=== PATIENT | female | born 1955 | race Caucasian/White ===

== ENCOUNTER 2020-10-31 12:24 | Emergency (ER) | payer OTHER, SELFPAY ==
[2020-10-31 12:52] VITALS: BP 142/72; PULSE 90; RESP 18; TEMP 36.7; O2SAT 95; BMI 36.6
[2020-10-31] MEDS: cephALEXin 500 MG CAPSULE PO (15:06)
--- NOTE | 2020-10-31 15:11 | ED.SKABFB ---
HPI - Skin/Abscess/Foreign Bdy General Chief complaint: Skin/Abscess/Foreign Body Stated complaint: rash? (arm pit) Time Seen by Provider: 10/31/20 14:48 History of Present Illness HPI narrative: Patient complains of burning rash to left and right arm pits it started in the left armpit and now it is starting in the right armpit there is no fever no chills no joint pain Related Data Home Medications Medication Instructions Recorded Confirmed albuterol sulfate 2 puff PO Q4-6H PRN 07/14/20 07/14/20 albuterol sulfate INHALATION 07/14/20 amlodipine 1 tab PO DAILY 07/14/20 07/14/20 atorvastatin 1 tab PO BEDTIME 07/14/20 07/14/20 bupropion HCl 1 tab PO QAM 07/14/20 07/14/20 carvedilol 1 tab PO BID 07/14/20 07/14/20 chlorthalidone 1 tab PO DAILY 07/14/20 07/14/20 cholecalciferol (vitamin D3) 1 tab PO DAILY 07/14/20 07/14/20 [Vitamin D3] clonazepam 1 tab PO TID PRN 07/14/20 07/14/20 escitalopram oxalate 1 tab PO QAM 07/14/20 07/14/20 fluticasone propionate [Flonase] 1 spray INTRANASAL DAILY 07/14/20 07/14/20 nifedipine PO 07/14/20 omeprazole 1 cap PO BID 07/14/20 07/14/20 oxycodone 1 tab PO Q12H PRN 07/14/20 07/14/20 oxycodone [OxyContin] 1 tab PO Q12H 07/14/20 07/14/20 risperidone 1 tab PO BID 07/14/20 07/14/20 Previous Rx's Medication Instructions Recorded cephalexin [Keflex] 500 mg PO QID 7 Days #28 cap 10/31/20 clotrimazole 1 appl TOPICAL TID #45 g 10/31/20 Allergies Allergy/AdvReac Type Severity Reaction Status Date / Time No Known Allergies Allergy Verified 10/31/20 12:57 Review of Systems Review of Systems: Positive for skin rash Negative for fever chills dizziness weakness chest pain abdominal pain nausea vomiting Yes all other systems are reviewed and are negative PMFSH Past Medical History Source: nursing notes reviewed Medical History Anxiety Asthma Depression Elevated cholesterol GERD (gastroesophageal reflux disease) HTN (hypertension) Hx of renal calculi Hx of small bowel obstruction Surgical History History of Salomon fundoplication Hx of colonoscopy Hx of hysterectomy, total Social History Social History Advance Directives: No Advance Directives Information Provided: No Physical Exam Vital Signs: Vital Signs: Last Vital Signs Temp 98.1 F 10/31/20 12:52 Pulse 90 10/31/20 12:52 Resp 18 10/31/20 12:52 BP 142/72 H 10/31/20 12:52 Pulse Ox 95 10/31/20 12:52 Body Mass Index 36.6 General appearance is comfortable relaxed and cooperative no acute distress A&O x3 Head is normocephalic atraumatic Neck is supple Respiratory no distress Extremities is full range of motion in all joints The skin exam the left armpit had a circular rash with a raised border and central clearing with some mild erythema surrounding the edges it was mildly tender to the touch there is no fluctuance there was no discharge from the wound there were no herpetic lesions the shoulder had a full range of motion and there was no swelling or limited range of motion in the shoulder joint The right armpit had a similar rash circular central clearing raised border but was less than on the left, again full range of motion no fluctuance no abscess but there was some mild erythema surrounding the raised circular rash Neuro no focal deficit Course Course Course Narrative: Exam is likely a fungal rash that now has some secondary cellulitis and she is treated for fungal rash and cellulitis Discharge Plan Discharge Clinical Impression: Cellulitis Qualifiers: Site of cellulitis: trunk Site of cellulitis of trunk: unspecified site Qualified Code(s): L03.319 - Cellulitis of trunk, unspecified Patient Disposition: Home, Self-Care Additional Instructions: I believe you have a fungal infection in the armpits which now is mildly infected so we are prescribing both an antibiotic and an anti fungal cream Follow with primary doctor Return any time any worse condition or concerns Prescriptions: New cephalexin [Keflex] 500 mg capsule 500 mg PO QID 7 Days Qty: 28 RF: 0 clotrimazole 1 % cream 1 appl topical TID Qty: 45 RF: 0 No Action atorvastatin 40 mg tablet 1 tab PO BEDTIME RF: 0 albuterol sulfate 2.5 mg /3 mL (0.083 %) solution for nebulization inhalation RF: 0 clonazepam 1 mg tablet 1 tab PO TID PRN (Reason: Anxiety) RF: 0 chlorthalidone 25 mg tablet 1 tab PO DAILY RF: 0 carvedilol 3.125 mg tablet 1 tab PO BID RF: 0 nifedipine 60 mg tablet extended release 24hr PO RF: 0 amlodipine 10 mg tablet 1 tab PO DAILY RF: 0 omeprazole 20 mg capsule,delayed release(DR/EC) 1 cap PO BID RF: 0 albuterol sulfate 90 mcg/actuation HFA aerosol inhaler 2 puff PO Q4-6H PRN (Reason: Wheezing) RF: 0 fluticasone propionate [Flonase] 50 mcg/actuation [place],Suspension 1 spray INTRANASAL DAILY RF: 0 risperidone 0.5 mg tablet 1 tab PO BID RF: 0 oxycodone 5 mg tablet 1 tab PO Q12H PRN (Reason: pain) RF: 0 escitalopram oxalate 10 mg tablet 1 tab PO QAM RF: 0 bupropion HCl 150 mg tablet extended release 24 hr 1 tab PO QAM RF: 0 cholecalciferol (vitamin D3) [Vitamin D3] 25 mcg (1,000 unit) tablet 1 tab PO DAILY RF: 0 oxycodone [OxyContin] 10 mg tablet,oral only,ext.rel.12 hr 1 tab PO Q12H RF: 0 Discharge Date/Time: 10/31/20 15:12
== END 2020-10-31 15:12 | disposition home or self-care (01) ==
PROVIDERS: Emergency Provider Emergency Medicine; PCP Family Medicine
DX: L03.319 Cellulitis of trunk, unspecified (principal); B36.9 Superficial mycosis, unspecified; I10 Essential (primary) hypertension; J45.909 Unspecified asthma, uncomplicated; Z79.899 Other long term (current) drug therapy
CPT/HCPCS: 99283

== ENCOUNTER 2021-02-19 10:44 | Outpatient (REF) | payer OTHER, SELFPAY ==
--- NOTE | ~2021-02-19 | MM_ITS ---
EXAMINATION: MM SCREENING DIGITAL BREAST TOMOSYNTHESIS, BILATERAL CLINICAL INFORMATION: Screening. Asymptomatic. The lifetime risk of breast cancer based on the Tyrer-Cuzick Model is 12.2%. COMPARISON: Mammography: April 23, 2018 and studies dating back to April 25, 2011 TECHNIQUE: Digital breast tomosynthesis is performed in both the craniocaudal and mediolateral oblique views along with computer-aided detection (CAD). Synthesized 2D images are generated from the tomosynthesis. FINDINGS: The breasts are extremely dense, which lowers the sensitivity of mammography (ACR BI-RADS breast composition Category d). There are no significant masses, abnormal calcifications, or other abnormalities. Stable region of architectural distortion seen central aspect of the right breast. MM/MM tomosynthesis screening BI IMPRESSION: There are no significant changes from prior study. ASSESSMENT: BI-RADS 2: Benign RECOMMENDATION: Routine annual mammography screening. This patient's information was entered into a reminder system with a target due date for their next mammogram.
== END 2021-02-19 10:45 | disposition home or self-care (01) ==
LOC: HO.MAMMO 10:44
PROVIDERS: Visit Provider Family Medicine
DX: Z12.31 Encounter for screening mammogram for malignant neoplasm of breast (principal)
CPT/HCPCS: 77063; 77067

== ENCOUNTER 2021-08-03 15:03 | Outpatient (REF) | payer OTHER, SELFPAY ==
[2021-08-03 15:22] LABS: MANUAL DIFF FLAG NO
[2021-08-03 15:34] LABS: Basophils Percent Auto 0.3 % (0-2); Eosinophils Absolute Auto 0.2 X10*3/uL (0.0-0.4); Eosinophils Percent Auto 1.5 % (0-4); Hematocrit 39.8 % (37.0-47.0); Hemoglobin 12.6 g/dl (12.0-16.0); Imm Gran Abs Auto 0.03 X10*3/uL (0.00-0.03); Imm Gran Pct Auto 0.3 % (0.0-0.4); Lymphocytes Absolute Auto 1.9 X10*3/uL (1.2-4.9); Mean Corpuscular HGB Conc 31.7 g/dl (31.0-35.0); Mean Corpuscular Hemoglobin 28.6 pg (27.0-33.0); Mean Corpuscular Volume 90.2 fL (80.0-98.0); Mean Platelet Volume 9.2 fL (9.4-12.3); Monocytes Absolute Auto 0.6 X10*3/uL (0.1-1.2); Neutrophils Absolute Auto 8.35 x10*3/uL (2.0-8.3); Neutrophils Percent Auto 75.9 % (45-73); Platelet Count 313 X10*3/uL (160-400); Red Blood Count 4.41 X10*6/uL (4.20-5.50); Red Cell Distribution Width 12.2 % (11.0-16.0)
[2021-08-03 15:56] LABS: Alanine Aminotransferase 8 U/L (0-31); Albumin Level 4.5 g/dL (3.5-5.0); Alkaline Phosphatase 88 U/L (39-117); Anion Gap 11 (12-20); Aspartate Amino Transferase 12 U/L (5-31); Bilirubin Total 0.3 mg/dL (0.0-1.0); Blood Urea Nitrogen 16 mg/dL (9-16); Calcium 9.8 mg/dL (8.4-10.2); Carbon Dioxide 33 mmol/L (22-29); Chloride 104 mmol/L (96-108); Estimated Glomerular Filt Rate 47; Glucose Random 101 mg/dL (60-115); Iron 48 mcg/dL (30-160); Percent Iron Saturation 14 % (15-50); Potassium 5.3 mmol/L (3.3-5.1); Sodium 143 mmol/L (135-145); Total Iron Binding Capacity 345 mcg/dL (228-428); Total Protein 7.1 g/dL (6.5-8.0); Unsaturated Iron Binding 297 ug/dL
[2021-08-03 16:23] LABS: TSH reflex Free T4 1.56 uIU/mL (0.32-4.0); Vitamin D 25-OH Total 33.4 ng/mL (>30)
[2021-08-03 16:34] LABS: Folate 9.5 ng/mL (> or = 4.0); Vitamin B12 346 pg/mL (200-900)
[2021-08-03 16:50] LABS: Ferritin 74 ng/mL (10-250)
[2021-08-04 07:27] LABS: Estimated Average Glucose 105 mg/dL; Hemoglobin A1c % 5.3 %
== END 2021-08-03 15:04 | disposition home or self-care (01) ==
LOC: HO.LAB 15:03
PROVIDERS: Absent Provider Registered Nurse; PCP Family Medicine; Visit Provider Family Medicine
DX: R63.0 Anorexia (principal); R63.4 Abnormal weight loss
CPT/HCPCS: 36415; 80053; 82306; 82607; 82728; 82746; 83036; 83540; 84134; 84443; 85025

== ENCOUNTER 2021-12-30 23:39 | Inpatient (IN) | payer OTHER, SELFPAY ==
--- NOTE | ~2021-12-30 | CT_ITS ---
EXAMINATION: CT ABDOMEN AND PELVIS WITH CONTRAST CLINICAL INFORMATION: Abdominal pain and nausea/vomiting. COMPARISON: 09/04/2019 TECHNIQUE: Multidetector volumetric images were obtained from the superior aspect of the liver through the pubic symphysis following administration 85 mL of Omnipaque 350 intravenous contrast. Sagittal and coronal reformatted images were obtained on the technologist's workstation. Oral contrast: No This CT examination was performed using dose optimization techniques as appropriate, variously including the following: *Automated exposure control *Adjustment of mA and/or kV according to patient size (this includes techniques or standardized protocols for targeted exams where dose is matched to indication/reason for exam; i.e. extremities or head) *Use of iterative reconstruction technique DLP: 782 mGy-cm FINDINGS: LUNG BASES: The visualized lung bases are unremarkable. LIVER, GALLBLADDER, AND BILIARY TREE: The liver is normal in size, shape, and attenuation. No focal hepatic lesion. Minimal central intrahepatic biliary duct dilatation and prominence of the common bile duct is within normal limits status post cholecystectomy. PANCREAS: Fatty atrophy. No inflammation or mass. SPLEEN: Unremarkable. ADRENAL GLANDS: Unremarkable. KIDNEYS AND URETERS: The kidneys are normal in size, shape, and attenuation. No hydronephrosis, hydroureter, or calculi seen. No perinephric stranding. BLADDER: Unremarkable. GASTROINTESTINAL TRACT: There is a small bowel obstruction with transition point in the left upper quadrant where the loops of the mid to distal jejunum are matted against the ventral abdominal wall. There is associated is enteric edema, however the bowel still appears to enhance normally. Distally, the small bowel is decompressed. Intact colocolic anastomosis within left lower quadrant between the descending and sigmoid colon. ABDOMINAL WALL: No significant hernia is appreciated. LYMPH NODES: Normal. VASCULAR: Unremarkable. PELVIC VISCERA: Hysterectomy. No adnexal abnormalities. OSSEOUS STRUCTURES: No acute or suspicious osseous abnormalities. CT/CT abdomen pelvis w con IMPRESSION: Small bowel obstruction with transition point in the left upper quadrant along the ventral abdominal wall as described. Fleischner guidelines were followed.
--- NOTE | ~2021-12-30 | XR_ITS ---
EXAMINATION: XR CHEST CLINICAL INFORMATION: Post NG tube placement COMPARISON: 08/29/2019 TECHNIQUE: Frontal view of the chest was obtained. XR/XR chest 1V FINDINGS/IMPRESSION: Nasogastric tube terminates within left upper quadrant, likely postpyloric. Normal symmetric lung volumes. No parenchymal consolidation. No pleural effusion. No pneumothorax. Cardiomediastinal silhouette and pulmonary vascularity are within normal limits. No acute osseous abnormalities.
[2021-12-31] VITALS (13 sets, daily range): BP systolic 119–170; BP diastolic 70–106; PULSE 73–87; RESP 15–20; TEMP 36.3–37; O2SAT 92–98; BMI 37.8
--- NOTE | 2021-12-31 00:43 | ED_ITS ---
HPI - Abdominal Pain General Chief Complaint: Abdominal Pain Stated Complaint: ABD PAIN X5 HOURS Time Seen by Provider: 12/31/21 00:12 Source: patient Mode of arrival: EMS History of Present Illness HPI narrative: 66-year-old female with history of abdominal surgery as well as asthma, hypertension who presents via EMS with onset of nausea and vomiting as well as abdominal pain that started approximately 18:00 this evening. Patient has a history of colostomy reversal several years ago and also states that she has not had any BM for 5 days but reports still passing flatus. Otherwise she denies urinary symptoms. Related Data Home Medications Medication Instructions Recorded Confirmed albuterol sulfate INHALATION 07/14/20 albuterol sulfate 90 mcg/actuation 2 puff PO Q4-6H PRN 07/14/20 07/14/20 aerosol inhaler amlodipine 10 mg tablet 1 tab PO DAILY 07/14/20 07/14/20 atorvastatin 40 mg tablet 1 tab PO BEDTIME 07/14/20 07/14/20 bupropion HCl 150 mg 24 hr tablet, 1 tab PO QAM 07/14/20 07/14/20 extended release carvedilol 3.125 mg tablet 1 tab PO BID 07/14/20 07/14/20 chlorthalidone 25 mg tablet 1 tab PO DAILY 07/14/20 07/14/20 cholecalciferol (vitamin D3) 25 1 tab PO DAILY 07/14/20 07/14/20 mcg (1,000 unit) tablet (Vitamin D3) clonazepam 1 mg tablet 1 tab PO TID PRN 07/14/20 07/14/20 escitalopram oxalate 10 mg tablet 1 tab PO QAM 07/14/20 07/14/20 fluticasone propionate 50 1 spray INTRANASAL DAILY 07/14/20 07/14/20 mcg/actuation nasal spray,suspension nifedipine 60 mg tablet,extended PO 07/14/20 release 24 hr omeprazole 20 mg capsule,delayed 1 cap PO BID 07/14/20 07/14/20 release oxycodone 10 mg tablet,crush 1 tab PO Q12H 07/14/20 07/14/20 resistant,extended release 12 hr (OxyContin) oxycodone 5 mg tablet 1 tab PO Q12H PRN 07/14/20 07/14/20 risperidone 0.5 mg tablet 1 tab PO BID 07/14/20 07/14/20 Previous Rx's Medication Instructions Recorded cephalexin 500 mg capsule (Keflex) 500 mg PO QID 7 Days #28 cap 10/31/20 clotrimazole 1 % topical cream 1 appl TOPICAL TID #45 g 10/31/20 Allergies Allergy/AdvReac Type Severity Reaction Status Date / Time No Known Allergies Allergy Verified 10/31/20 12:57 Review of Systems Review of Systems Pertinent positives and negatives as stated in HPI 10 point review of systems is otherwise negative. [facility] Past Medical History Source: nursing notes reviewed Medical History Anxiety Asthma Depression Elevated cholesterol GERD (gastroesophageal reflux disease) HTN (hypertension) Hx of renal calculi Hx of small bowel obstruction Surgical History History of Salomon fundoplication Hx of colonoscopy Hx of hysterectomy, total Social History Social History Alcohol intake: never Patient Tobacco Use Status: Never used Tobacco Use of substances other than those prescribed or required for medical reasons: No Advance Directives: No Advance Directives Information Provided: No Physical Exam ED Vital Signs: Vital Signs - 24 hr 12/31/21 00:03 12/31/21 01:16 12/31/21 02:15 Temperature 98.6 F Pulse Rate 81 73 Respiratory Rate 18 15 18 Blood Pressure 165/96 H 148/80 H Pulse Oximetry 98 96 BMI result Body Mass Index 37.8 VITAL SIGNS: Reviewed. GENERAL: Well developed, well nourished, in no acute distress. HEAD: Normocephalic/atraumatic EYES: PERRLA, EOMI EARS: Ext canals without abnormality OROPHARYNX: no oral lesions noted, posterior pharynx clear LUNGS: Normal breath sounds. No adventitious sounds or accessory muscle use. SpO2<98> CARDIOVASCULAR: Regular rate and rhythm without noted murmurs, no JVD or lower extremity edema. ABDOMEN: Soft, diffusely tender with hypoactive bowel sounds and mild distension. SKIN: Inspection of the skin reveals no rashes NEUROLOGIC: Alert and oriented x 4. Strength and sensation to light touch were grossly intact x 4. Course Course Course Narrative: 66-year-old female with history and clinical presentation most consistent with SBO despite reporting that she is passing flatus and less likely felt to be , appendicitis, diverticulitis. Review of all investigations consistent with small-bowel obstruction. I discussed case with Surgical Services who accepts admission and recommends NGT. MDM - Abdominal Pain Lab Data Result diagrams: 12/31/21 01:07 12/31/21 01:07 Labs: Lab Results 12/31/21 12/31/21 12/31/21 Range/Units 01:07 01:07 01:07 WBC 18.3 H (4.8-10.8) X10*3/uL RBC 4.94 (4.20-5.50) X10*6/uL Hgb 13.7 (12.0-16.0) g/dl Hct 43.3 (37.0-47.0) % MCV 87.7 (80.0-98.0) fL MCH 27.7 (27.0-33.0) pg MCHC 31.6 (31.0-35.0) g/dl RDW 12.5 (11.0-16.0) % Plt Count 385 (160-400) X10*3/uL MPV 9.2 L (9.4-12.3) fL Immature Gran % (Auto) 0.5 H (0.0-0.4) % Neut % (Auto) 86.1 H (45-73) % Lymph % (Auto) 8.0 L (20-40) % Pender % (Auto) 4.5 (2-11) % Eos % (Auto) 0.6 (0-4) % Baso % (Auto) 0.3 (0-2) % Lymph # (Auto) 1.5 (1.2-4.9) X10*3/uL Pender # (Auto) 0.8 (0.1-1.2) X10*3/uL Eos # (Auto) 0.1 (0.0-0.4) X10*3/uL Baso # (Auto) 0.1 (0.0-0.2) X10*3/uL Abs Immat Gran (auto) 0.10 H (0.00-0.03) X10*3/uL Absolute Neuts (auto) 15.8 H (2.0-8.3) x10*3/uL Absolute Nucleated RBC 0.000 (0.0-0.012) X10*3/uL Nucleated RBC % (auto) 0.0 (0.0-0.2) /100WBC Sodium 139 (135-145) mmol/L Potassium 4.1 D (3.3-5.1) mmol/L Chloride 97 (96-108) mmol/L Carbon Dioxide 31 H (22-29) mmol/L Anion Gap 15 (12-20) BUN 20 H (9-16) mg/dL Creatinine 1.32 (0.5-1.4) mg/dL Estim Creat Clear Calc 43.5 Estimated GFR 40 Random Glucose 145 H (60-115) mg/dL Lactic Acid 1.1 (0.5-2.0) mmol/L Calcium 10.5 H D (8.4-10.2) mg/dL Total Bilirubin 0.5 (0.0-1.0) mg/dL AST 14 (5-31) U/L ALT 13 (0-31) U/L Alkaline Phosphatase 94 (39-117) U/L Total Protein 8.1 H (6.5-8.0) g/dL Albumin 4.8 (3.5-5.0) g/dL Lipase 7 L (8-78) U/L COVID-19 ([facility]) (Negative) COVID-19 Clin Com 12/31/21 Range/Units 01:07 WBC (4.8-10.8) X10*3/uL RBC (4.20-5.50) X10*6/uL Hgb (12.0-16.0) g/dl Hct (37.0-47.0) % MCV (80.0-98.0) fL MCH (27.0-33.0) pg MCHC (31.0-35.0) g/dl RDW (11.0-16.0) % Plt Count (160-400) X10*3/uL MPV (9.4-12.3) fL Immature Gran % (Auto) (0.0-0.4) % Neut % (Auto) (45-73) % Lymph % (Auto) (20-40) % Pender % (Auto) (2-11) % Eos % (Auto) (0-4) % Baso % (Auto) (0-2) % Lymph # (Auto) (1.2-4.9) X10*3/uL Pender # (Auto) (0.1-1.2) X10*3/uL Eos # (Auto) (0.0-0.4) X10*3/uL Baso # (Auto) (0.0-0.2) X10*3/uL Abs Immat Gran (auto) (0.00-0.03) X10*3/uL Absolute Neuts (auto) (2.0-8.3) x10*3/uL Absolute Nucleated RBC (0.0-0.012) X10*3/uL Nucleated RBC % (auto) (0.0-0.2) /100WBC Sodium (135-145) mmol/L Potassium (3.3-5.1) mmol/L Chloride (96-108) mmol/L Carbon Dioxide (22-29) mmol/L Anion Gap (12-20) BUN (9-16) mg/dL Creatinine (0.5-1.4) mg/dL Estim Creat Clear Calc Estimated GFR Random Glucose (60-115) mg/dL Lactic Acid (0.5-2.0) mmol/L Calcium (8.4-10.2) mg/dL Total Bilirubin (0.0-1.0) mg/dL AST (5-31) U/L ALT (0-31) U/L Alkaline Phosphatase (39-117) U/L Total Protein (6.5-8.0) g/dL Albumin (3.5-5.0) g/dL Lipase (8-78) U/L COVID-19 ([facility]) Negative (Negative) COVID-19 Clin Com See Note Discharge Plan Discharge Clinical Impression: Small bowel obstruction Patient Disposition: Admitted As Inpatient Prescriptions: No Action atorvastatin 40 mg tablet 1 tab PO BEDTIME 0RF albuterol sulfate 2.5 mg /3 mL (0.083 %) solution for nebulization inhalation 0RF clonazepam 1 mg tablet 1 tab PO TID PRN (Reason: Anxiety) 0RF chlorthalidone 25 mg tablet 1 tab PO DAILY 0RF carvedilol 3.125 mg tablet 1 tab PO BID 0RF nifedipine 60 mg tablet extended release 24hr PO 0RF amlodipine 10 mg tablet 1 tab PO DAILY 0RF omeprazole 20 mg capsule,delayed release(DR/EC) 1 cap PO BID 0RF albuterol sulfate 90 mcg/actuation HFA aerosol inhaler 2 puff PO Q4-6H PRN (Reason: Wheezing) 0RF fluticasone propionate [Flonase] 50 mcg/actuation [place],Suspension 1 spray INTRANASAL DAILY 0RF risperidone 0.5 mg tablet 1 tab PO BID 0RF oxycodone 5 mg tablet 1 tab PO Q12H PRN (Reason: pain) 0RF escitalopram oxalate 10 mg tablet 1 tab PO QAM 0RF bupropion HCl 150 mg tablet extended release 24 hr 1 tab PO QAM 0RF cholecalciferol (vitamin D3) [Vitamin D3] 25 mcg (1,000 unit) tablet 1 tab PO DAILY 0RF oxycodone [OxyContin] 10 mg tablet,oral only,ext.rel.12 hr 1 tab PO Q12H 0RF cephalexin [Keflex] 500 mg capsule 500 mg PO QID 7 Days Qty: 28 0RF clotrimazole 1 % cream 1 appl topical TID Qty: 45 0RF Rx Instructions: Apply 3 times a day until better
[2021-12-31 01:10] LABS: MANUAL DIFF FLAG NO
[2021-12-31 01:14] LABS: Basophils Absolute Auto 0.1 X10*3/uL (0.0-0.2); Basophils Percent Auto 0.3 % (0-2); Eosinophils Absolute Auto 0.1 X10*3/uL (0.0-0.4); Eosinophils Percent Auto 0.6 % (0-4); Hematocrit 43.3 % (37.0-47.0); Hemoglobin 13.7 g/dl (12.0-16.0); Imm Gran Pct Auto 0.5 % (0.0-0.4); Lymphocytes Absolute Auto 1.5 X10*3/uL (1.2-4.9); Mean Corpuscular HGB Conc 31.6 g/dl (31.0-35.0); Mean Corpuscular Hemoglobin 27.7 pg (27.0-33.0); Mean Corpuscular Volume 87.7 fL (80.0-98.0); Mean Platelet Volume 9.2 fL (9.4-12.3); Monocytes Absolute Auto 0.8 X10*3/uL (0.1-1.2); Monocytes Percent Auto 4.5 % (2-11); Neutrophils Absolute Auto 15.8 x10*3/uL (2.0-8.3); Neutrophils Percent Auto 86.1 % (45-73); Platelet Count 385 X10*3/uL (160-400); Red Blood Count 4.94 X10*6/uL (4.20-5.50); Red Cell Distribution Width 12.5 % (11.0-16.0); White Blood Count 18.3 X10*3/uL (4.8-10.8)
[2021-12-31] MEDS: HYDROmorphone HCl 0.5 MG/0.5 ML SYRINGE 0.25 MG IVPUSH (01:16)
[2021-12-31 01:21] LABS: Lactic Acid 1.1 mmol/L (0.5-2.0)
[2021-12-31 01:28] LABS: COVID-19 Test Negative (Negative)
[2021-12-31 01:29] LABS: Alanine Aminotransferase 13 U/L (0-31); Albumin Level 4.8 g/dL (3.5-5.0); Alkaline Phosphatase 94 U/L (39-117); Anion Gap 15 (12-20); Aspartate Amino Transferase 14 U/L (5-31); Bilirubin Total 0.5 mg/dL (0.0-1.0); Blood Urea Nitrogen 20 mg/dL (9-16); Calcium 10.5 mg/dL (8.4-10.2); Carbon Dioxide 31 mmol/L (22-29); Chloride 97 mmol/L (96-108); Creatinine Clr Calc Pharmacy 43.5; Estimated Glomerular Filt Rate 40; Glucose Random 145 mg/dL (60-115); Lipase 7 U/L (8-78); Potassium 4.1 mmol/L (3.3-5.1); Sodium 139 mmol/L (135-145); Total Protein 8.1 g/dL (6.5-8.0)
[2021-12-31] MEDS: HYDROmorphone HCl 0.5 MG/0.5 ML SYRINGE IVPUSH ×3 (01:53→04:48)
[2021-12-31] MEDS: iohexoL 350 MG/ML 100 ML INFUS..BTL 85 ML IV (02:11)
[2021-12-31] MEDS: Piperacillin Sodium/Tazobactam 3.375 GM in 0.9 % Sodium Chloride 50 ML IV (02:27)
--- NOTE | 2021-12-31 05:55 | PC.NURSE ---
NG tube container change and patient put out 900 ml's of yellow greenish fluid. Patient's NG tube is still draining. Patient continues to have no pain relief from her abdominal pain despite IV Dilaudid being administered 4x.
--- NOTE | 2021-12-31 07:21 | P.HPGS_ITS ---
History of Present Illness History of Present Illness Date of Service: 01/04/22 Chief complaint: SBO Narrative: Delphine Martínez is a 66 year old female who came in last night because of what she described as diffuse abdominal pain. She says this started around 18:00 last night. He describes episodes of nausea /vomiting as well. She says she was admitted to the hospital about 2 years ago for similar problem. She also describes having an NG tube placed at that time. She says she had laparotomy with a colostomy about 10 years ago in [facility] and had this eventually reversed. She is uncertain as to why this was done at that time. She describes flatus and bowel movements. Review of Systems Constitutional: Constitutional: Denies chills and Denies fever(s) Cardiovascular: Cardiovascular: Denies chest pain, Denies dyspnea and Denies dyspnea on exertion Respiratory: Respiratory: Denies cough, Denies dyspnea and Denies dyspnea on exertion Gastrointestinal: Gastrointestinal: Denies hematochezia and Denies change in bowel habits Genitourinary: Genitourinary: Denies hematuria Musculoskeletal: Musculoskeletal: Denies back pain and Denies limited range of motion Neurologic: Denies focal weakness and Denies convulsions Psychiatric: Psychiatric: Denies depression and Denies mood swings PMFSH Past Medical History Medical History Anxiety Asthma Depression Elevated cholesterol GERD (gastroesophageal reflux disease) HTN (hypertension) Hx of renal calculi Hx of small bowel obstruction Family History Family History Father PVD (peripheral vascular disease) Mother Depression Surgical History Surgical History History of Salomon fundoplication Hx of colonoscopy Hx of hysterectomy, total Social History Social History Household Members: None Housing: Apartment Do you presently have visiting nurse or other home services: Yes (care attendant) Alcohol intake: never Patient Tobacco Use Status: Never used Tobacco Use of substances other than those prescribed or required for medical reasons: No Currently Displaying Signs/Symptoms of Drug Intoxication Withdrawal: No Have you been hit, kicked, punched, or otherwise hurt by someone within the past year? If so, by whom?: No Do you feel safe in your current relationship?: No Current Relationship Is there a partner from a previous relationship who is making you feel unsafe now?: No Are you made to feel afraid or neglected: No Advance Directives: No Advance Directives Information Provided: No Do you have thoughts of harming others: None Do you have a plan to hurt others: No Plan Recently lost weight without trying: No Eating poorly because of decreased appetite: No Nutrition Risks: No Nutritional Risk Patient : No : No Poor oral hygiene: No service: No Current occupational status: unemployed Meds Allergies Allergy/AdvReac Type Severity Reaction Status Date / Time No Known Allergies Allergy Verified 10/31/20 12:57 Active Medications: Current Medications Heparin Sodium (Porcine) (Heparin Sodium,Porcine 5,000 Unit/Ml Vial) 5,000 unit SUBCUT Q12H JORDAN Lactated Ringer's (Lr) 1,000 mls @ 100 mls/hr IVCONT .Q10H JORDAN Morphine Sulfate (Morphine Sulfate 4 Mg/Ml Cartridge) 3 mg IVPUSH Q4H PRN; Protocol PRN Reason: Pain, Severe (Pain Scale 7-10) Ondansetron HCl (Ondansetron Hcl 4 Mg/2 Ml Vial) 4 mg IVPUSH Q8H PRN PRN Reason: nausea Sodium Chloride (0.9 % Sodium Chloride Flush 3 Ml Syringe) 3 ml IVFLUSH QSHIFT [facility] Home Medications Medication Instructions Recorded Confirmed Last Taken Type albuterol sulfate 90 mcg/actuation 2 puff PO Q4-6H PRN 07/14/20 12/31/21 Unknown History aerosol inhaler atorvastatin 40 mg tablet 1 tab PO BEDTIME 07/14/20 12/31/21 Unknown History clonazepam 1 mg tablet 1 tab PO TID PRN 07/14/20 12/31/21 Unknown History escitalopram oxalate 10 mg tablet 1 tab PO QAM 07/14/20 12/31/21 Unknown History omeprazole 20 mg capsule,delayed 1 cap PO BID 07/14/20 12/31/21 Unknown History release oxycodone 10 mg tablet,crush 1 tab PO Q12H 07/14/20 12/31/21 Unknown History resistant,extended release 12 hr (OxyContin) oxycodone 5 mg tablet 1 tab PO Q12H PRN 07/14/20 12/31/21 Unknown History risperidone 0.5 mg tablet 1 tab PO BID 07/14/20 01/02/22 Unknown History bupropion HCl 150 mg 24 hr tablet, 150 mg PO QAM 12/31/21 12/31/21 Unknown History extended release cholecalciferol (vitamin D3) 25 1 tab PO DAILY 12/31/21 12/31/21 Unknown History mcg (1,000 unit) tablet naloxone 4 mg/actuation nasal 2 spray INTRANASAL NEEDED PRN 12/31/21 12/31/21 Unknown History spray (Narcan) nifedipine 60 mg tablet,extended 1 tab PO DAILY 12/31/21 12/31/21 Unknown History release 24 hr quetiapine 400 mg tablet 1 tab PO BEDTIME 12/31/21 12/31/21 Unknown History Physical Exam Vital Signs: Vital Signs: Last Vital Signs Temp 98.3 F 12/31/21 07:04 Pulse 79 12/31/21 07:04 Resp 18 12/31/21 07:04 BP 149/86 H 12/31/21 07:04 Pulse Ox 94 12/31/21 07:04 BMI result Body Mass Index 37.8 Const: Other: Appears obese General: no acute distress Orientation/consciousness: patient oriented x3 Neck: Neck: Yes no lymphadenopathy Resp: Auscultation: clear to auscultation bilaterally Cardio: Rhythm: regular rhythm GI: Other: Soft, minimally distended, no guarding rebound, mild diffuse tenderness Palpation (GI): Soft to palpation, nontender and no guarding Neuro: General: patient oriented x3 Results Results Labs: Short CBC 12/31/21 Range/Units 01:07 WBC 18.3 H (4.8-10.8) X10*3/uL Hgb 13.7 (12.0-16.0) g/dl Hct 43.3 (37.0-47.0) % Plt Count 385 (160-400) X10*3/uL BMP 12/31/21 01:07 Sodium 139 Potassium 4.1 D Chloride 97 Carbon Dioxide 31 H BUN 20 H Creatinine 1.32 Calcium 10.5 H D Liver Function 12/31/21 Range/Units 01:07 Total Bilirubin 0.5 (0.0-1.0) mg/dL AST 14 (5-31) U/L ALT 13 (0-31) U/L Alkaline Phosphatase 94 (39-117) U/L Albumin 4.8 (3.5-5.0) g/dL Abdomen CT scan report/results: report reviewed and image reviewed CT scan - pelvis: report reviewed and image reviewed Additional studies: Laboratory Results WBC 18.3 X10*3/uL (4.8-10.8) H 12/31/21 01:07 RBC 4.94 X10*6/uL (4.20-5.50) 12/31/21 01:07 Hgb 13.7 g/dl (12.0-16.0) 12/31/21 01:07 Hct 43.3 % (37.0-47.0) 12/31/21 01:07 MCV 87.7 fL (80.0-98.0) 12/31/21 01:07 MCH 27.7 pg (27.0-33.0) 12/31/21 01:07 MCHC 31.6 g/dl (31.0-35.0) 12/31/21 01:07 RDW 12.5 % (11.0-16.0) 12/31/21 01:07 Plt Count 385 X10*3/uL (160-400) 12/31/21 01:07 MPV 9.2 fL (9.4-12.3) L 12/31/21 01:07 Immature Gran % (Auto) 0.5 % (0.0-0.4) H 12/31/21 01:07 Neut % (Auto) 86.1 % (45-73) H 12/31/21 01:07 Lymph % (Auto) 8.0 % (20-40) L 12/31/21 01:07 [place] % (Auto) 4.5 % (2-11) 12/31/21 01:07 Eos % (Auto) 0.6 % (0-4) 12/31/21 01:07 Baso % (Auto) 0.3 % (0-2) 12/31/21 01:07 Lymph # (Auto) 1.5 X10*3/uL (1.2-4.9) 12/31/21 01:07 [place] # (Auto) 0.8 X10*3/uL (0.1-1.2) 12/31/21 01:07 Eos # (Auto) 0.1 X10*3/uL (0.0-0.4) 12/31/21 01:07 Baso # (Auto) 0.1 X10*3/uL (0.0-0.2) 12/31/21 01:07 Abs Immat Gran (auto) 0.10 X10*3/uL (0.00-0.03) H 12/31/21 01:07 Absolute Neuts (auto) 15.8 x10*3/uL (2.0-8.3) H 12/31/21 01:07 Absolute Nucleated RBC 0.000 X10*3/uL (0.0-0.012) 12/31/21 01:07 Nucleated RBC % (auto) 0.0 /100WBC (0.0-0.2) 12/31/21 01:07 Sodium 139 mmol/L (135-145) 12/31/21 01:07 Potassium 4.1 mmol/L (3.3-5.1) D 12/31/21 01:07 Chloride 97 mmol/L (96-108) 12/31/21 01:07 Carbon Dioxide 31 mmol/L (22-29) H 12/31/21 01:07 Anion Gap 15 (12-20) 12/31/21 01:07 BUN 20 mg/dL (9-16) H 12/31/21 01:07 Creatinine 1.32 mg/dL (0.5-1.4) 12/31/21 01:07 Estim Creat Clear Calc 43.5 12/31/21 01:07 Estimated GFR 40 12/31/21 01:07 Random Glucose 145 mg/dL (60-115) H 12/31/21 01:07 Lactic Acid 1.1 mmol/L (0.5-2.0) 12/31/21 01:07 Calcium 10.5 mg/dL (8.4-10.2) H D 12/31/21 01:07 Total Bilirubin 0.5 mg/dL (0.0-1.0) 12/31/21 01:07 AST 14 U/L (5-31) 12/31/21 01:07 ALT 13 U/L (0-31) 12/31/21 01:07 Alkaline Phosphatase 94 U/L (39-117) 12/31/21 01:07 Total Protein 8.1 g/dL (6.5-8.0) H 12/31/21 01:07 Albumin 4.8 g/dL (3.5-5.0) 12/31/21 01:07 Lipase 7 U/L (8-78) L 12/31/21 01:07 COVID-19 (ROSIBEL) Negative (Negative) 12/31/21 01:07 COVID-19 Clin Com See Note 12/31/21 01:07 Impressions Abdomen/Pelvis CT 12/31/21 02:00 IMPRESSION: Small bowel obstruction with transition point in the left upper quadrant along the ventral abdominal wall as described. Fleischner guidelines were followed. Chest X-Ray 12/31/21 03:40 FINDINGS/IMPRESSION: Nasogastric tube terminates within left upper quadrant, likely postpyloric. Normal symmetric lung volumes. No parenchymal consolidation. No pleural effusion. No pneumothorax. Cardiomediastinal silhouette and pulmonary vascularity are within normal limits. No acute osseous abnormalities. Assessment and Plan (1) Small bowel obstruction: Status: Acute She came in because of abdominal pain and had a CAT scan showing what appears to be small-bowel obstruction with transition point in the left upper quadrant. This is likely secondary to adhesions from her previous surgeries. She had colostomy about 10 years ago this reversed She had an NG-tube placed early this morning. She otherwise has a benign exam at this time. I did explain to her that there is always the small chance that she may require laparotomy if she does not improved. Her white count was elevated of this will be followed. I have requested for hospice consult in view of her history of hypertension. The patient understands the plan and is comfortable with this. I will review her CAT scan images with the radiologist. Quality Stroke Does the patient have a stroke diagnosis?: No VTE Prior VTE?: No VTE Risk Level:: Medical - moderate - high VTE Device Contraindication: N/A - Device Ordered VTE Drug Contraindication: N/A - Med Ordered Procedures Date of Service Date of Service: 12/31/21
[2021-12-31] MEDS: Morphine Sulfate 4 MG/ML CARTRIDGE 3 MG IVPUSH ×6 (07:26→21:44)
[2021-12-31] MEDS: ondansetron HCL 4 MG/2 ML VIAL IVPUSH (07:29)
[2021-12-31] MEDS: Lactated Ringers 1,000 ML 100 ML IVCONT ×2 (07:39→16:27)
[2021-12-31] MEDS: Heparin Sodium,Porcine 5,000 UNIT/ML VIAL 5000 UNIT SUBCUT ×2 (07:39→18:38)
--- NOTE | 2021-12-31 07:45 | PC.NURSE ---
antwon conte arrival at 7am pt has upper abd pain, nausea. vomited 200ml thick green bile around NG tube. [facility] medicated for pain and nausea following emisis and states she feels better. has been seen by doc joe. skin pwd. alert. abd scar from previous surgeries. pos bs x 4. pt denies flatulence.
--- NOTE | 2021-12-31 08:50 | MHC.CM.PN ---
PT REPORTS SHE LIVES ALONE AND HAS DAILY [employer] PT REPORTS SHE HAS A WALKER SHE USES PRN PT CONFIRMS HER PCP IS HARVEY NUÑEZ PT ALSO REPORTS THERE SHOULD BE A HCP ON FILE FROM 2010 NAMING HER SISTER, LINDSAY, HER AGENT CM WILL CONTACT [facility] TO CONFIRM IT IS ON FILE PT REPORTS SHE IS VACCINATED AGAINST COVID-19, SHE DOES NOT REMEMBER THE BRAND, BUT REPORTS SHE HAS RECEIVED THREE DOSES. IMM DELIVERED, COPY SENT TO [facility] CURRENT DC PLAN IS HOME WITH RESUMPTION OF [employer] PT WILL SELF ARRANGE TRANSPORT
--- NOTE | 2021-12-31 10:12 | PC.NURSE ---
has not vomited since initial episode ths am. awaits change to PRN schedule. Fady diaz has been in to re evaluate patient.
--- NOTE | 2021-12-31 12:19 | PC.NURSE ---
patient a&ox3, ng tube to rt nare, pt felt as if the ng tube wasnt draining, this nurse instilled 60 cc of water as well as air, patient had positive response with 200cc of fluid which emptied into the container. patient had c/o 8/10 pain she was medicated with morphine with minimal relief. Call coleman is within reach, will continue to monitor.
--- NOTE | 2021-12-31 12:55 | P.CONIM_ITS ---
History of Present Illness Data of Consult Service Date: 12/31/21 Primary Care Provider: Bela Vasquez MD HPI Reason for consult: htn 66-year-old female with a past medical history of mood disorder, hypertension presented with 1 day of abdominal pain. She was found to have small-bowel obstruction, NG tube was placed with some relief in symptoms, however patient is still distended and with abdominal pain. Patient was admitted to General surgery Service, medical consult requested for Management ofcomorbidities. Patient's blood pressure generally well controlled on nifedipine. She is normally on multiple mood related medications. Currently patient is anxious about insomnia, otherwise denies chest pain, shortness of breath, fever, chills. Review of Systems Review of Systems: Constitutional: Denies fever, denies Chills Eyes: denies blurry vision ENT: denies sore throat CVS: denies chest pain Respiratory: Denies dyspnea GI: abdominal pain : denies dysuria MSK: denies neck pain Skin: denies rash Neuro: denies specific motor weakness Psych: denies suicidal ideation Endocrine: denies heat/cold intolerance Hematologic: denies easy bleeding Allergy: denies hives PMFSH Medical History Anxiety Asthma Depression Elevated cholesterol GERD (gastroesophageal reflux disease) HTN (hypertension) Hx of renal calculi Hx of small bowel obstruction Family History Father PVD (peripheral vascular disease) Mother Depression Surgical History History of Salomon fundoplication Hx of colonoscopy Hx of hysterectomy, total Social History Alcohol intake: never Patient Tobacco Use Status: Never used Tobacco Use of substances other than those prescribed or required for medical reasons: No Advance Directives: No Advance Directives Information Provided: No service: No Current occupational status: unemployed Meds Allergies Allergy/AdvReac Type Severity Reaction Status Date / Time No Known Allergies Allergy Verified 10/31/20 12:57 Active Medications: Current Medications Heparin Sodium (Porcine) (Heparin Sodium,Porcine 5,000 Unit/Ml Vial) 5,000 unit SUBCUT Q12H JORDAN Last Admin: 12/31/21 07:39 Dose: 5,000 unit Documented by: Hydralazine HCl (Hydralazine Hcl 20 Mg/Ml Vial) 5 mg IVPUSH Q6H PRN; Protocol PRN Reason: SBP>180 Lactated Ringer's (Lr) 1,000 mls @ 100 mls/hr IVCONT .Q10H ON LICENSE OF [facility] Last Admin: 12/31/21 07:39 Dose: 100 mls/hr Documented by: Lorazepam (Lorazepam 2 Mg/Ml Vial) 0.5 mg IVPUSH Q6H PRN PRN Reason: anxiety Morphine Sulfate (Morphine Sulfate 4 Mg/Ml Cartridge) 3 mg IVPUSH Q2H PRN; Protocol PRN Reason: Pain, Severe (Pain Scale 7-10) Last Admin: 12/31/21 11:03 Dose: 3 mg Documented by: Ondansetron HCl (Ondansetron Hcl 4 Mg/2 Ml Vial) 4 mg IVPUSH Q8H PRN PRN Reason: nausea Last Admin: 12/31/21 07:29 Dose: 4 mg Documented by: Sodium Chloride (0.9 % Sodium Chloride Flush 3 Ml Syringe) [facility] Last Admin: 12/31/21 07:31 Dose: Not Given Documented by: Home Medications Medication Instructions Recorded Confirmed Last Taken Type albuterol sulfate 90 mcg/actuation 2 puff PO Q4-6H PRN 07/14/20 12/31/21 Unknown History aerosol inhaler atorvastatin 40 mg tablet 1 tab PO BEDTIME 07/14/20 12/31/21 Unknown History clonazepam 1 mg tablet 1 tab PO TID PRN 07/14/20 12/31/21 Unknown History escitalopram oxalate 10 mg tablet 1 tab PO QAM 07/14/20 12/31/21 Unknown History omeprazole 20 mg capsule,delayed 1 cap PO BID 07/14/20 12/31/21 Unknown History release oxycodone 10 mg tablet,crush 1 tab PO Q12H 07/14/20 12/31/21 Unknown History resistant,extended release 12 hr (OxyContin) oxycodone 5 mg tablet 1 tab PO Q12H PRN 07/14/20 12/31/21 Unknown History risperidone 0.5 mg tablet 1 tab PO BID 07/14/20 12/31/21 Unknown History bupropion HCl 150 mg 24 hr tablet, 150 mg PO QAM 12/31/21 12/31/21 Unknown History extended release cholecalciferol (vitamin D3) 25 1 tab PO DAILY 12/31/21 12/31/21 Unknown History mcg (1,000 unit) tablet naloxone 4 mg/actuation nasal 2 spray INTRANASAL NEEDED PRN 12/31/21 12/31/21 Unknown History spray (Narcan) nifedipine 60 mg tablet,extended 1 tab PO DAILY 12/31/21 12/31/21 Unknown History release 24 hr quetiapine 400 mg tablet 1 tab PO BEDTIME 12/31/21 12/31/21 Unknown History Physical Exam Vital Signs and Narrative: Vital Signs: Last Vital Signs Temp 98.3 F 12/31/21 07:04 Pulse 75 12/31/21 07:48 Resp 18 12/31/21 07:48 BP 150/70 H 12/31/21 07:48 Pulse Ox 92 12/31/21 07:48 BMI result Body Mass Index 37.8 General: no acute distress HEENT: atraumatic Neck: normal to visual inspection CVS: S1, S2, RRR Resp: CTA bilateral Chest: non tender GI: tender, distended : no CVA tenderness Skin: no rashes Extremities: trace edema Neuro: Oriented X3, grossly intact Psych: cooperative Results Labs CBC and Chem 7: 12/31/21 01:07 12/31/21 01:07 Labs: Laboratory Results - last 24 hr 12/31/21 12/31/21 12/31/21 01:07 01:07 01:07 MCV 87.7 MCH 27.7 MCHC 31.6 RDW 12.5 Plt Count 385 MPV 9.2 L Immature Gran % (Auto) 0.5 H Neut % (Auto) 86.1 H Lymph % (Auto) 8.0 L [place] % (Auto) 4.5 Eos % (Auto) 0.6 Baso % (Auto) 0.3 Lymph # (Auto) 1.5 [place] # (Auto) 0.8 Eos # (Auto) 0.1 Baso # (Auto) 0.1 Abs Immat Gran (auto) 0.10 H Absolute Neuts (auto) 15.8 H Absolute Nucleated RBC 0.000 Nucleated RBC % (auto) 0.0 Anion Gap 15 Estim Creat Clear Calc 43.5 Estimated GFR 40 Random Glucose 145 H Lactic Acid 1.1 Calcium 10.5 H D Total Bilirubin 0.5 AST 14 ALT 13 Alkaline Phosphatase 94 Total Protein 8.1 H Albumin 4.8 Lipase 7 L COVID-19 (ROSIBEL) COVID-19 Clin Com 12/31/21 01:07 MCV MCH MCHC RDW Plt Count MPV Immature Gran % (Auto) Neut % (Auto) Lymph % (Auto) [place] % (Auto) Eos % (Auto) Baso % (Auto) Lymph # (Auto) [place] # (Auto) Eos # (Auto) Baso # (Auto) Abs Immat Gran (auto) Absolute Neuts (auto) Absolute Nucleated RBC Nucleated RBC % (auto) Anion Gap Estim Creat Clear Calc Estimated GFR Random Glucose Lactic Acid Calcium Total Bilirubin AST ALT Alkaline Phosphatase Total Protein Albumin Lipase COVID-19 (ROSIBEL) Negative COVID-19 Clin Com See Note Imaging Radiologist's Impressions: Impressions Abdomen/Pelvis CT 12/31/21 02:00 IMPRESSION: Small bowel obstruction with transition point in the left upper quadrant along the ventral abdominal wall as described. Fleischner guidelines were followed. Chest X-Ray 12/31/21 03:40 FINDINGS/IMPRESSION: Nasogastric tube terminates within left upper quadrant, likely postpyloric. Normal symmetric lung volumes. No parenchymal consolidation. No pleural effusion. No pneumothorax. Cardiomediastinal silhouette and pulmonary vascularity are within normal limits. No acute osseous abnormalities. Assessment and Plan (1) Small bowel obstruction: Status: Acute Plan 66F presented with SBO SBO management per surgery HTN will use prn hydralazine for SBP >180 can restart nifedipine when okay from surgical perspective expect some improvement with pain meds mood disorder restart oral home meds when okay surgically ativan iv as needed for now mild intermittent asthma bronchodilators prn
[2021-12-31] MEDS: LORazepam 2 MG/ML VIAL 0.5 MG IVPUSH (22:05)
[2022-01-01] VITALS: BP 141/72; PULSE 71; RESP 17; TEMP 36.3; O2SAT 95
[2022-01-01] MEDS: Morphine Sulfate 4 MG/ML CARTRIDGE 3 MG IVPUSH ×8 (00:21→22:18)
[2022-01-01] MEDS: Lactated Ringers 1,000 ML 100 ML IVCONT ×3 (00:23→21:57)
[2022-01-01] MEDS: LORazepam 2 MG/ML VIAL 0.5 MG IVPUSH ×3 (03:55→18:49)
[2022-01-01 04:00] VITALS: BP 141/70; PULSE 68; RESP 18; TEMP 36.2; O2SAT 99
[2022-01-01 06:15] LABS: Hematocrit 38.8 % (37.0-47.0); Hemoglobin 12.1 g/dl (12.0-16.0); Mean Corpuscular HGB Conc 31.2 g/dl (31.0-35.0); Mean Corpuscular Hemoglobin 28.1 pg (27.0-33.0); Mean Corpuscular Volume 90.2 fL (80.0-98.0); Mean Platelet Volume 9.3 fL (9.4-12.3); Platelet Count 325 X10*3/uL (160-400); Red Cell Distribution Width 12.9 % (11.0-16.0); White Blood Count 11.2 X10*3/uL (4.8-10.8)
[2022-01-01] MEDS: Heparin Sodium,Porcine 5,000 UNIT/ML VIAL 5000 UNIT SUBCUT ×2 (06:15→18:49)
[2022-01-01 06:16] LABS: Appearance Urine CLEAR; Color Urine YELLOW; Glucose Urine UA NEG (NEG); Leukocyte Esterase Urine NEG (NEG); Nitrite Urine NEG (NEG); PH 6.5 (5.0-8.0); Specific Gravity - Urine 1.025 (1.005-1.025); Urine Blood NEG (NEG); Urine Ketones 5 MG/DL (NEG); Urine Protein TRACE MG/DL (NEG-TRACE)
[2022-01-01 06:31] LABS: Anion Gap 13 (12-20); Blood Urea Nitrogen 21 mg/dL (9-16); Calcium 9.3 mg/dL (8.4-10.2); Carbon Dioxide 32 mmol/L (22-29); Chloride 101 mmol/L (96-108); Creatinine Clr Calc Pharmacy 47.9; Estimated Glomerular Filt Rate 45; Glucose Random 94 mg/dL (60-115); Potassium 4.5 mmol/L (3.3-5.1); Sodium 141 mmol/L (135-145)
[2022-01-01 08:00] VITALS: BP 138/69; PULSE 69; RESP 18; TEMP 36.7; O2SAT 92
--- NOTE | 2022-01-01 08:41 | HO.PM.IMPN ---
Subjective Subjective Date of Service: 01/01/22 Interval History: cc: abd pain interval history: still with abd pain Respiratory Respiratory: Reports no additional respiratory complaints Genitourinary Genitourinary: Reports no additional female genitourinary complaints Physical Exam Vital Signs: Vital Signs: Last Vital Signs Temp 98.1 F 01/01/22 08:00 Pulse 69 01/01/22 08:00 Resp 18 01/01/22 08:00 BP 138/69 01/01/22 08:00 Pulse Ox 92 01/01/22 08:00 BMI result Body Mass Index 37.8 General: AO X 3, in pain Resp: CTA bilateral, no accessory muscles used CVS: S1,S2,RRR GI: soft, tender, distended Neuro: motor grossly intact, alert Psych: appropriate affect, appropriate insight Objective Data Active Medications Albuterol Sulfate (Albuterol Sulfate 90 Mcg 8 Gm Inhaler) 2 puff INHALE Q4H PRN PRN Reason: Wheezing Heparin Sodium (Porcine) (Heparin Sodium,Porcine 5,000 Unit/Ml Vial) 5,000 unit SUBCUT Q12H [facility] Last Admin: 01/01/22 06:15 Dose: 5,000 unit Documented by: DULCE Hydralazine HCl (Hydralazine Hcl 20 Mg/Ml Vial) 5 mg IVPUSH Q6H PRN; Protocol PRN Reason: SBP>180 Lactated Ringer's (Lr) 1,000 mls @ 100 mls/hr IVCONT .Q10H JORDAN Last Admin: 01/01/22 00:23 Dose: 100 mls/hr Documented by: DULCE Lorazepam (Lorazepam 2 Mg/Ml Vial) 0.5 mg IVPUSH Q6H PRN PRN Reason: anxiety Last Admin: 01/01/22 03:55 Dose: 0.5 mg Documented by: DUCLE Morphine Sulfate (Morphine Sulfate 4 Mg/Ml Cartridge) 3 mg IVPUSH Q2H PRN; Protocol PRN Reason: Pain, Severe (Pain Scale 7-10) Last Admin: 01/01/22 06:14 Dose: 3 mg Documented by: DULCE Ondansetron HCl (Ondansetron Hcl 4 Mg/2 Ml Vial) 4 mg IVPUSH Q8H PRN PRN Reason: nausea Last Admin: 12/31/21 07:29 Dose: 4 mg Documented by: PITA Sodium Chloride (0.9 % Sodium Chloride Flush 3 Ml Syringe) 3 ml IVFLUSH QSHIFT JORDAN Last Admin: 01/01/22 07:23 Dose: Not Given Documented by: DERIC Non-Admin Reason: IV Running Labs CBC & Chem 7: 01/01/22 06:02 01/01/22 06:02 Labs: Laboratory Results - last 24 hr 01/01/22 01/01/22 01/01/22 06:02 06:02 06:02 MCV 90.2 MCH 28.1 MCHC 31.2 RDW 12.9 Plt Count 325 MPV 9.3 L Absolute Nucleated RBC 0.000 Nucleated RBC % (auto) 0.0 Anion Gap 13 Estim Creat Clear Calc 47.9 Estimated GFR 45 Random Glucose 94 Calcium 9.3 D Urine Color YELLOW Urine Appearance CLEAR Urine pH 6.5 Ur Specific [place] 1.025 Urine Protein TRACE Urine Glucose (UA) NEG Urine Ketones 5 Urine Blood NEG Urine Nitrite NEG Ur Leukocyte Esterase NEG Microbiology Microbiology Results: Microbiology 12/31/21 01:03 Blood Culture - Preliminary Blood - Venous No growth after 24 hours. 12/31/21 01:02 Blood Culture - Preliminary Blood - Venous No growth after 24 hours. Assessment and Plan (1) Small bowel obstruction: Status: Acute Plan 66F presented with SBO SBO management per surgery HTN adequately controlled can use prn hydralazine for SBP >180 can restart nifedipine when okay from surgical perspective improving with pain meds mood disorder restart oral home meds when okay surgically ativan iv as needed for now mild intermittent asthma bronchodilators prn Quality Stroke Does the patient have a stroke diagnosis?: No VTE Prior VTE?: No VTE Risk Level:: Medical - moderate - high VTE Device Contraindication: N/A - Device Ordered VTE Drug Contraindication: N/A - Med Ordered
--- NOTE | 2022-01-01 10:11 | PM.PNGS ---
Subjective Subjective Date of Service: 01/01/22 Interval history: says she still has some pain denies flatus no events reported Physical Exam Vital Signs: Vital Signs: Last Vital Signs Temp 98.1 F 01/01/22 08:00 Pulse 69 01/01/22 08:00 Resp 18 01/01/22 08:00 BP 138/69 01/01/22 08:00 Pulse Ox 92 01/01/22 08:00 BMI result Body Mass Index 37.8 Const: General: no acute distress Resp: Effort & Inspection: normal respiratory effort Cardio: Rate: regular rate GI: Other: soft, nondistended, no guarding, tender on left mostly Objective Data Active Medications Albuterol Sulfate (Albuterol Sulfate 90 Mcg 8 Gm Inhaler) 2 puff INHALE Q4H PRN PRN Reason: Wheezing Heparin Sodium (Porcine) (Heparin Sodium,Porcine 5,000 Unit/Ml Vial) 5,000 unit SUBCUT Q12H [facility] Last Admin: 01/01/22 06:15 Dose: 5,000 unit Documented by: DULCE Hydralazine HCl (Hydralazine Hcl 20 Mg/Ml Vial) 5 mg IVPUSH Q6H PRN; Protocol PRN Reason: SBP>180 Lactated Ringer's (Lr) 1,000 mls @ 100 mls/hr IVCONT .Q10H [facility] Last Admin: 01/01/22 00:23 Dose: 100 mls/hr Documented by: DULCE Lorazepam (Lorazepam 2 Mg/Ml Vial) 0.5 mg IVPUSH Q6H PRN PRN Reason: anxiety Last Admin: 01/01/22 03:55 Dose: 0.5 mg Documented by: DULCE Morphine Sulfate (Morphine Sulfate 4 Mg/Ml Cartridge) 3 mg IVPUSH Q2H PRN; Protocol PRN Reason: Pain, Severe (Pain Scale 7-10) Last Admin: 01/01/22 09:07 Dose: 3 mg Documented by: DERIC Ondansetron HCl (Ondansetron Hcl 4 Mg/2 Ml Vial) 4 mg IVPUSH Q8H PRN PRN Reason: nausea Last Admin: 12/31/21 07:29 Dose: 4 mg Documented by: PITA Sodium Chloride (0.9 % Sodium Chloride Flush 3 Ml Syringe) 3 ml IVFLUSH QSHIFT [facility] Last Admin: 01/01/22 07:23 Dose: Not Given Documented by: DERIC Non-Admin Reason: IV Running Labs CBC & Chem 7: 01/01/22 06:02 01/01/22 06:02 Labs: Laboratory Results - last 24 hr 01/01/22 01/01/22 01/01/22 06:02 06:02 06:02 MCV 90.2 MCH 28.1 MCHC 31.2 RDW 12.9 Plt Count 325 MPV 9.3 L Absolute Nucleated RBC 0.000 Nucleated RBC % (auto) 0.0 Anion Gap 13 Estim Creat Clear Calc 47.9 Estimated GFR 45 Random Glucose 94 Calcium 9.3 D Urine Color YELLOW Urine Appearance CLEAR Urine pH 6.5 Ur Specific [place] 1.025 Urine Protein TRACE Urine Glucose (UA) NEG Urine Ketones 5 Urine Blood NEG Urine Nitrite NEG Ur Leukocyte Esterase NEG Microbiology Microbiology Results: Microbiology 12/31/21 01:03 Blood Culture - Preliminary Blood - Venous No growth after 24 hours. 12/31/21 01:02 Blood Culture - Preliminary Blood - Venous No growth after 24 hours. Procedures Date of Service Date of Service: 01/01/22 Progress Note: A&P Assessment and plan (1) Small bowel obstruction: Status: Acute Plan NGT output still signficant no flatus yet encouraged to ambulate down hallway keep NGT in exam benign otherwise she looks well Fall Risk Details Current Medications: Current Medications Albuterol Sulfate (Albuterol Sulfate 90 Mcg 8 Gm Inhaler) 2 puff INHALE Q4H PRN PRN Reason: Wheezing Heparin Sodium (Porcine) (Heparin Sodium,Porcine 5,000 Unit/Ml Vial) 5,000 unit SUBCUT Q12H [facility] Last Admin: 01/01/22 06:15 Dose: 5,000 unit Documented by: Hydralazine HCl (Hydralazine Hcl 20 Mg/Ml Vial) 5 mg IVPUSH Q6H PRN; Protocol PRN Reason: SBP>180 Lactated Ringer's (Lr) 1,000 mls @ 100 mls/hr IVCONT .Q10H [facility] Last Admin: 01/01/22 00:23 Dose: 100 mls/hr Documented by: Lorazepam (Lorazepam 2 Mg/Ml Vial) 0.5 mg IVPUSH Q6H PRN PRN Reason: anxiety Last Admin: 01/01/22 03:55 Dose: 0.5 mg Documented by: Morphine Sulfate (Morphine Sulfate 4 Mg/Ml Cartridge) 3 mg IVPUSH Q2H PRN; Protocol PRN Reason: Pain, Severe (Pain Scale 7-10) Last Admin: 01/01/22 09:07 Dose: 3 mg Documented by: Ondansetron HCl (Ondansetron Hcl 4 Mg/2 Ml Vial) 4 mg IVPUSH Q8H PRN PRN Reason: nausea Last Admin: 12/31/21 07:29 Dose: 4 mg Documented by: Sodium Chloride (0.9 % Sodium Chloride Flush 3 Ml Syringe) 3 ml IVFLUSH [facility] Last Admin: 01/01/22 07:23 Dose: Not Given Documented by: Time Spent With Patient Time: Total time spent is greater than 50% in coordination of care (as documented) at patient's floor/unit and/or counseling patient: Quality Stroke Does the patient have a stroke diagnosis?: No VTE Prior VTE?: No VTE Risk Level:: Medical - moderate - high VTE Device Contraindication: N/A - Device Ordered VTE Drug Contraindication: N/A - Med Ordered
[2022-01-01 12:00] VITALS: BP 141/72; PULSE 98; RESP 18; TEMP 36.6; O2SAT 97
[2022-01-01 15:45] VITALS: BP 149/68; PULSE 78; RESP 14; TEMP 37.1; O2SAT 90
[2022-01-01 19:18] VITALS: BP 144/75; PULSE 76; RESP 16; TEMP 37.2; O2SAT 94
[2022-01-02] VITALS (7 sets, daily range): BP systolic 122–171; BP diastolic 61–82; PULSE 61–79; RESP 14–20; TEMP 36.2–36.8; O2SAT 92–97
[2022-01-02] MEDS: Morphine Sulfate 4 MG/ML CARTRIDGE 3 MG IVPUSH ×9 (00:49→20:31)
[2022-01-02] MEDS: LORazepam 2 MG/ML VIAL 0.5 MG IVPUSH ×2 (00:49→06:40)
[2022-01-02] MEDS: Lactated Ringers 1,000 ML 100 ML IVCONT ×2 (05:42→18:44)
[2022-01-02 06:06] LABS: Hematocrit 37.6 % (37.0-47.0); Hemoglobin 11.7 g/dl (12.0-16.0); Mean Corpuscular HGB Conc 31.1 g/dl (31.0-35.0); Mean Platelet Volume 9.6 fL (9.4-12.3); Platelet Count 330 X10*3/uL (160-400); Red Blood Count 4.18 X10*6/uL (4.20-5.50); Red Cell Distribution Width 12.3 % (11.0-16.0); White Blood Count 10.7 X10*3/uL (4.8-10.8)
[2022-01-02] MEDS: Heparin Sodium,Porcine 5,000 UNIT/ML VIAL 5000 UNIT SUBCUT ×2 (06:39→18:43)
[2022-01-02 06:44] LABS: Anion Gap 14 (12-20); Blood Urea Nitrogen 22 mg/dL (9-16); Calcium 9.4 mg/dL (8.4-10.2); Carbon Dioxide 30 mmol/L (22-29); Chloride 102 mmol/L (96-108); Estimated Glomerular Filt Rate 55; Glucose Fasting 75 mg/dL (60-99); Potassium 4.4 mmol/L (3.3-5.1); Sodium 142 mmol/L (135-145)
--- NOTE | 2022-01-02 11:02 | P.PNGS_ITS ---
Subjective Subjective Date of Service: 01/02/22 Interval history: says she still has episodes of pain but better has been passing flatus, BMs Physical Exam Vital Signs: Vital Signs: Last Vital Signs Temp 97.7 F 01/02/22 07:48 Pulse 70 01/02/22 07:48 Resp 18 01/02/22 07:48 BP 164/77 H 01/02/22 07:48 Pulse Ox 95 01/02/22 07:48 BMI result Body Mass Index 37.8 Const: Other: morbidly obese General: comfortable and no acute distress Resp: Effort & Inspection: normal respiratory effort Cardio: Rate: regular rate GI: Other: obese, soft benign Palpation (GI): no guarding and not rigid Objective Data Active Medications Albuterol Sulfate (Albuterol Sulfate 90 Mcg 8 Gm Inhaler) 2 puff INHALE Q4H PRN PRN Reason: Wheezing Heparin Sodium (Porcine) (Heparin Sodium,Porcine 5,000 Unit/Ml Vial) 5,000 unit SUBCUT Q12H [facility] Last Admin: 01/02/22 06:39 Dose: 5,000 unit Documented by: DULCE Hydralazine HCl (Hydralazine Hcl 20 Mg/Ml Vial) 5 mg IVPUSH Q6H PRN; Protocol PRN Reason: SBP>180 Lactated Ringer's (Lr) 1,000 mls @ 100 mls/hr IVCONT .Q10H [facility] Last Admin: 01/02/22 05:42 Dose: 100 mls/hr Documented by: DULCE Lorazepam (Lorazepam 2 Mg/Ml Vial) 0.5 mg IVPUSH Q6H PRN PRN Reason: anxiety Last Admin: 01/02/22 06:40 Dose: 0.5 mg Documented by: DULCE Morphine Sulfate (Morphine Sulfate 4 Mg/Ml Cartridge) 3 mg IVPUSH Q2H PRN; Protocol PRN Reason: Pain, Severe (Pain Scale 7-10) Last Admin: 01/02/22 09:50 Dose: 3 mg Documented by: ELIZABETH Ondansetron HCl (Ondansetron Hcl 4 Mg/2 Ml Vial) 4 mg IVPUSH Q8H PRN PRN Reason: nausea Last Admin: 12/31/21 07:29 Dose: 4 mg Documented by: PITA Sodium Chloride (0.9 % Sodium Chloride Flush 3 Ml Syringe) 3 ml IVFLUSH QSHIFT [facility] Last Admin: 01/02/22 07:31 Dose: Not Given Documented by: ELIZABETH Non-Admin Reason: IV Running Labs CBC & Chem 7: 01/02/22 05:36 01/02/22 05:36 Labs: Laboratory Results - last 24 hr 01/02/22 01/02/22 05:36 05:36 MCV 90.0 MCH 28.0 MCHC 31.1 RDW 12.3 Plt Count 330 MPV 9.6 Absolute Nucleated RBC 0.000 Nucleated RBC % (auto) 0.0 Anion Gap 14 Estim Creat Clear Calc 57.0 Estimated GFR 55 Fasting Glucose 75 Calcium 9.4 Microbiology Microbiology Results: Microbiology 12/31/21 01:03 Blood Culture - Preliminary Blood - Venous No growth after 48 hours. 12/31/21 01:02 Blood Culture - Preliminary Blood - Venous No growth after 48 hours. Procedures Date of Service Date of Service: 01/02/22 Progress Note: A&P Assessment and plan (1) Small bowel obstruction: Status: Acute Assessment and Plan: passing flatus and BMs looks comfortable NGT output significant - CX shows tip may be in duodenum, thus, may be pulling out more bilious output in view of overall good clinical improvement,dc NGT sips of clears encouraged ambulation doing well labs ok Fall Risk Details Current Medications: Current Medications Albuterol Sulfate (Albuterol Sulfate 90 Mcg 8 Gm Inhaler) 2 puff INHALE Q4H PRN PRN Reason: Wheezing Heparin Sodium (Porcine) (Heparin Sodium,Porcine 5,000 Unit/Ml Vial) 5,000 unit SUBCUT Q12H [facility] Last Admin: 01/02/22 06:39 Dose: 5,000 unit Documented by: Hydralazine HCl (Hydralazine Hcl 20 Mg/Ml Vial) 5 mg IVPUSH Q6H PRN; Protocol PRN Reason: SBP>180 Lactated Ringer's (Lr) 1,000 mls @ 100 mls/hr IVCONT .Q10H [facility] Last Admin: 01/02/22 05:42 Dose: 100 mls/hr Documented by: Lorazepam (Lorazepam 2 Mg/Ml Vial) 0.5 mg IVPUSH Q6H PRN PRN Reason: anxiety Last Admin: 01/02/22 06:40 Dose: 0.5 mg Documented by: Morphine Sulfate (Morphine Sulfate 4 Mg/Ml Cartridge) 3 mg IVPUSH Q2H PRN; Protocol PRN Reason: Pain, Severe (Pain Scale 7-10) Last Admin: 01/02/22 09:50 Dose: 3 mg Documented by: Ondansetron HCl (Ondansetron Hcl 4 Mg/2 Ml Vial) 4 mg IVPUSH Q8H PRN PRN Reason: nausea Last Admin: 12/31/21 07:29 Dose: 4 mg Documented by: Sodium Chloride (0.9 % Sodium Chloride Flush 3 Ml Syringe) 3 ml IVFLUSH [facility] Last Admin: 01/02/22 07:31 Dose: Not Given Documented by: Time Spent With Patient Time: Total time spent is greater than 50% in coordination of care (as documented) at patient's floor/unit and/or counseling patient: Quality Stroke Does the patient have a stroke diagnosis?: No VTE Prior VTE?: No VTE Risk Level:: Medical - moderate - high VTE Device Contraindication: N/A - Device Ordered VTE Drug Contraindication: N/A - Med Ordered
--- NOTE | 2022-01-02 11:54 | P.PNIM_ITS ---
Subjective Subjective Date of Service: 01/02/22 Interval History: cc: abd pain interval history: passing flatus Cardiovascular Cardiovascular: Reports no additional cardiovascular complaints Respiratory Respiratory: Reports no additional respiratory complaints Physical Exam Vital Signs: Vital Signs: Last Vital Signs Temp 97.7 F 01/02/22 07:48 Pulse 70 01/02/22 07:48 Resp 18 01/02/22 07:48 BP 164/77 H 01/02/22 07:48 Pulse Ox 95 01/02/22 07:48 BMI result Body Mass Index 37.8 Const Other: morbidly obese General:?comfortable and no acute distress Resp Effort & Inspection:?normal respiratory effort Cardio Rate:?regular rate GI Other: obese, soft benign Palpation (GI):?no guarding and not rigid Objective Data Active Medications Albuterol Sulfate (Albuterol Sulfate 90 Mcg 8 Gm Inhaler) 2 puff INHALE Q4H PRN PRN Reason: Wheezing Atorvastatin Calcium (Atorvastatin Calcium 40 Mg Tablet) 40 mg PO BEDTIME [facility] Bupropion HCl (Bupropion Hcl Xl 150 Mg Tab.Er.24h) 150 mg PO QAM [facility] Clonazepam (Clonazepam 1 Mg Tablet) 1 mg PO TID PRN PRN Reason: Anxiety Escitalopram Oxalate (Escitalopram Oxalate 10 Mg Tablet) 10 mg PO QAM [facility] Heparin Sodium (Porcine) (Heparin Sodium,Porcine 5,000 Unit/Ml Vial) 5,000 unit SUBCUT Q12H [facility] Last Admin: 01/02/22 06:39 Dose: 5,000 unit Documented by: DULCE Hydralazine HCl (Hydralazine Hcl 20 Mg/Ml Vial) 5 mg IVPUSH Q6H PRN; Protocol PRN Reason: SBP>180 Lactated Ringer's (Lr) 1,000 mls @ 100 mls/hr IVCONT .Q10H [facility] Last Admin: 01/02/22 05:42 Dose: 100 mls/hr Documented by: DULCE Lorazepam (Lorazepam 2 Mg/Ml Vial) 0.5 mg IVPUSH Q6H PRN PRN Reason: anxiety Last Admin: 01/02/22 06:40 Dose: 0.5 mg Documented by: DULCE Morphine Sulfate (Morphine Sulfate 4 Mg/Ml Cartridge) 3 mg IVPUSH Q2H PRN; Protocol PRN Reason: Pain, Severe (Pain Scale 7-10) Last Admin: 01/02/22 09:50 Dose: 3 mg Documented by: ELIZABETH Naloxone HCl (Naloxone Hcl Nasal 4 Mg [place]) mg NOSTRILALT NEEDED PRN PRN Reason: Opioid Overdose Nifedipine (Nifedipine Er 60 Mg Tab.Er.24) 60 mg PO DAILY [facility]; Protocol Omeprazole (Omeprazole 20 Mg Capsule.Dr) 20 mg PO BID [facility] Ondansetron HCl (Ondansetron Hcl 4 Mg/2 Ml Vial) 4 mg IVPUSH Q8H PRN PRN Reason: nausea Last Admin: 12/31/21 07:29 Dose: 4 mg Documented by: PITA Quetiapine Fumarate (Quetiapine Fumarate 400 Mg Tablet) 400 mg PO BEDTIME [facility] Risperidone (Risperidone 0.5 Mg Tablet) 0.5 mg PO BID [facility] Sodium Chloride (0.9 % Sodium Chloride Flush 3 Ml Syringe) 3 ml IVFLUSH QSHIFT [facility] Last Admin: 01/02/22 07:31 Dose: Not Given Documented by: ELIZABETH Non-Admin Reason: IV Running Vitamin D (Cholecalciferol (Vitamin D3) 25 Mcg Tablet) 25 mcg PO DAILY [facility] Labs CBC & Chem 7: 01/02/22 05:36 01/02/22 05:36 Labs: Laboratory Results - last 24 hr 01/02/22 01/02/22 05:36 05:36 MCV 90.0 MCH 28.0 MCHC 31.1 RDW 12.3 Plt Count 330 MPV 9.6 Absolute Nucleated RBC 0.000 Nucleated RBC % (auto) 0.0 Anion Gap 14 Estim Creat Clear Calc 57.0 Estimated GFR 55 Fasting Glucose 75 Calcium 9.4 Microbiology Microbiology Results: Microbiology 12/31/21 01:03 Blood Culture - Preliminary Blood - Venous No growth after 48 hours. 12/31/21 01:02 Blood Culture - Preliminary Blood - Venous No growth after 48 hours. Assessment and Plan (1) Small bowel obstruction: Status: Acute Plan 66F presented with SBO SBO management per surgery HTN restarting nifedipine mood disorder wellbutrin, lexapro, seroquel, risperdal mild intermittent asthma bronchodilators prn Quality Stroke Does the patient have a stroke diagnosis?: No VTE Prior VTE?: No VTE Risk Level:: Medical - moderate - high VTE Device Contraindication: N/A - Device Ordered VTE Drug Contraindication: N/A - Med Ordered
[2022-01-02] MEDS: buPROPion HCl XL 150 MG TAB.ER.24H PO (12:21)
[2022-01-02] MEDS: Escitalopram Oxalate 10 MG TABLET PO (12:22)
[2022-01-02] MEDS: clonazePAM 1 MG TABLET PO ×2 (14:41→20:40)
[2022-01-02] MEDS: 0.9 % Sodium Chloride Flush 3 ML SYRINGE IVFLUSH (14:41)
[2022-01-02] MEDS: Omeprazole 20 MG CAPSULE.DR PO (20:31)
[2022-01-02] MEDS: risperiDONE 0.5 MG TABLET PO (20:31)
[2022-01-02] MEDS: Atorvastatin Calcium 40 MG TABLET PO (20:31)
[2022-01-02] MEDS: QUEtiapine Fumarate 400 MG TABLET PO (20:31)
[2022-01-03 04:00] VITALS: BP 148/76; PULSE 67; RESP 18; TEMP 37.2; O2SAT 96
[2022-01-03] MEDS: Lactated Ringers 1,000 ML 100 ML IVCONT (06:12)
[2022-01-03] MEDS: Heparin Sodium,Porcine 5,000 UNIT/ML VIAL 5000 UNIT SUBCUT ×2 (06:13→18:04)
[2022-01-03 07:29] VITALS: BP 157/72; PULSE 61; RESP 18; TEMP 36.7; O2SAT 94
--- NOTE | 2022-01-03 08:13 | P.PNGS_ITS ---
Subjective Subjective Date of Service: 01/03/22 <Ana Bal PA-C - Last Filed: 01/03/22 08:16> 01/03/22 <Erick Cody MD - Last Filed: 01/03/22 09:43> Interval history: NGT removed yesterday and started on sips of liquids. Slight increase in pain this morning. Continues to pass flatus, had a bowel movement. OOB and ambulating. Denies bloating. <Ana Bal PA-C - Last Filed: 01/03/22 08:16> Physical Exam Vital Signs: Vital Signs: Last Vital Signs Temp 98.1 F 01/03/22 07:29 Pulse 61 01/03/22 07:29 Resp 18 01/03/22 07:29 BP 157/72 H 01/03/22 07:29 Pulse Ox 94 01/03/22 07:29 BMI result Body Mass Index 37.8 <KYLIE Castillo Last Filed: 01/03/22 08:16> Const: General: comfortable, no acute distress and alert <Ana Bal PA-C - Last Filed: 01/03/22 08:16> Orientation/consciousness: patient oriented x3 <KYLIE Castillo Last Filed: 01/03/22 08:16> Resp: Effort & Inspection: normal respiratory effort <KYLIE Castillo Last Filed: 01/03/22 08:16> GI: Inspection: No distended <KYLIE Castillo Last Filed: 01/03/22 08:16> Palpation (GI): Soft to palpation, Tenderness to palpation present (GI) (epigastric region, lower abdomen), no guarding and not rigid <KYLIE Castillo Last Filed: 01/03/22 08:16> Percussion: Yes normal to percussion <KYLIE Castillo Last Filed: 01/03/22 08:16> Skin: General skin exam: no rashes or lesions noted <KYLIE Castillo Last Filed: 01/03/22 08:16> Neuro: General: patient oriented x3 <Ana Bal PA-C - Last Filed: 01/03/22 08:16> Extrem: General: Yes no clubbing, cyanosis or edema <Emmy Castillo - Last Filed: 01/03/22 08:16> Objective Data Active Medications Albuterol Sulfate (Albuterol Sulfate 90 Mcg 8 Gm Inhaler) 2 puff INHALE Q4H PRN PRN Reason: Wheezing Atorvastatin Calcium (Atorvastatin Calcium 40 Mg Tablet) 40 mg PO BEDTIME [facility] Last Admin: 01/02/22 20:31 Dose: 40 mg Documented by: THALIA Bupropion HCl (Bupropion Hcl Xl 150 Mg Tab.Er.24h) 150 mg PO DAILY [facility] Last Admin: 01/02/22 12:21 Dose: 150 mg Documented by: ELIZABETH Clonazepam (Clonazepam 1 Mg Tablet) 1 mg PO TID PRN PRN Reason: Anxiety Last Admin: 01/02/22 20:40 Dose: 1 mg Documented by: THALIA Escitalopram Oxalate (Escitalopram Oxalate 10 Mg Tablet) 10 mg PO DAILY [facility] Last Admin: 01/02/22 12:22 Dose: 10 mg Documented by: ELIZABETH Heparin Sodium (Porcine) (Heparin Sodium,Porcine 5,000 Unit/Ml Vial) 5,000 unit SUBCUT Q12H [facility] Last Admin: 01/03/22 06:13 Dose: 5,000 unit Documented by: THALIA Lactated Ringer's (Lr) 1,000 mls @ 100 mls/hr IVCONT .Q10H [facility] Last Admin: 01/03/22 06:12 Dose: 100 mls/hr Documented by: THALIA Lorazepam (Lorazepam 2 Mg/Ml Vial) 0.5 mg IVPUSH Q6H PRN PRN Reason: anxiety Last Admin: 01/02/22 06:40 Dose: 0.5 mg Documented by: DULCE Morphine Sulfate (Morphine Sulfate 4 Mg/Ml Cartridge) 3 mg IVPUSH Q2H PRN; Protocol PRN Reason: Pain, Severe (Pain Scale 7-10) Last Admin: 01/02/22 20:31 Dose: 3 mg Documented by: THALIA Naloxone HCl (Naloxone Hcl Nasal 4 Mg [place]) 4 mg NOSTRILALT DAILY PRN PRN Reason: Opioid Overdose Nifedipine (Nifedipine Er 60 Mg Tab.Er.24) 60 mg PO DAILY [facility]; Protocol Omeprazole (Omeprazole 20 Mg Capsule.Dr) 20 mg PO BID [facility] Last Admin: 01/02/22 20:31 Dose: 20 mg Documented by: THALIA Ondansetron HCl (Ondansetron Hcl 4 Mg/2 Ml Vial) 4 mg IVPUSH Q8H PRN PRN Reason: nausea Last Admin: 12/31/21 07:29 Dose: 4 mg Documented by: PITA Quetiapine Fumarate (Quetiapine Fumarate 400 Mg Tablet) 400 mg PO BEDTIME [facility] Last Admin: 01/02/22 20:31 Dose: 400 mg Documented by: THALIA Risperidone (Risperidone 0.5 Mg Tablet) 0.5 mg PO BID [facility] Last Admin: 01/02/22 20:31 Dose: 0.5 mg Documented by: THALIA Sodium Chloride (0.9 % Sodium Chloride Flush 3 Ml Syringe) 3 ml IVFLUSH QSHIFT [facility] Last Admin: 01/02/22 21:58 Dose: Not Given Documented by: THALIA Non-Admin Reason: IV Running Vitamin D (Cholecalciferol (Vitamin D3) 25 Mcg Tablet) 25 mcg PO DAILY [facility] <Ana Bal PA-C - Last Filed: 01/03/22 08:16> Labs CBC & Chem 7: : 01/02/22 05:36 01/02/22 05:36 <Ana Bal PA-C - Last Filed: 01/03/22 08:16> Procedures Date of Service Date of Service: 01/03/22 <Ana Bal PA-C - Last Filed: 01/03/22 08:16> Progress Note: A&P Assessment and plan (1) HTN (hypertension): Status: Acute <Ana Bal PA-C - Last Filed: 01/03/22 08:16> Assessment and Plan: Passing flatus and BMs although says she still has pain including in the back Looks well Abdomen soft and benign Okay to start clear liquids Will advance slowly as tolerated Seen and examined independently - agree with OLIVIA Bal <Erick Cody MD - Last Filed: 01/03/22 09:43> (2) Small bowel obstruction: Status: Acute <Ana Bal PA-C - Last Filed: 01/03/22 08:16> Plan 66 year old female admitted with SBO. NGT removed yesterday. Slight increase in pain this morning but continues to have good GI function. Abd relatively benign. Will advance to clear liquids as tolerated. Continue to encourage OOB/ambulation. <Ana Bal PA-C - Last Filed: 01/03/22 08:16> Fall Risk Details Current Medications: Current Medications Albuterol Sulfate (Albuterol Sulfate 90 Mcg 8 Gm Inhaler) 2 puff INHALE Q4H PRN PRN Reason: Wheezing Atorvastatin Calcium (Atorvastatin Calcium 40 Mg Tablet) 40 mg PO BEDTIME [facility] Last Admin: 01/02/22 20:31 Dose: 40 mg Documented by: Bupropion HCl (Bupropion Hcl Xl 150 Mg Tab.Er.24h) 150 mg PO DAILY [facility] Last Admin: 01/02/22 12:21 Dose: 150 mg Documented by: Clonazepam (Clonazepam 1 Mg Tablet) 1 mg PO TID PRN PRN Reason: Anxiety Last Admin: 01/02/22 20:40 Dose: 1 mg Documented by: Escitalopram Oxalate (Escitalopram Oxalate 10 Mg Tablet) 10 mg PO DAILY [facility] Last Admin: 01/02/22 12:22 Dose: 10 mg Documented by: Heparin Sodium (Porcine) (Heparin Sodium,Porcine 5,000 Unit/Ml Vial) 5,000 unit SUBCUT Q12H [facility] Last Admin: 01/03/22 06:13 Dose: 5,000 unit Documented by: Lactated Ringer's (Lr) 1,000 mls @ 100 mls/hr IVCONT .Q10H [facility] Last Admin: 01/03/22 06:12 Dose: 100 mls/hr Documented by: Lorazepam (Lorazepam 2 Mg/Ml Vial) 0.5 mg IVPUSH Q6H PRN PRN Reason: anxiety Last Admin: 01/02/22 06:40 Dose: 0.5 mg Documented by: Morphine Sulfate (Morphine Sulfate 4 Mg/Ml Cartridge) 3 mg IVPUSH Q2H PRN; Protocol PRN Reason: Pain, Severe (Pain Scale 7-10) Last Admin: 01/02/22 20:31 Dose: 3 mg Documented by: Naloxone HCl (Naloxone Hcl Nasal 4 Mg [place]) 4 mg NOSTRILALT DAILY PRN PRN Reason: Opioid Overdose Nifedipine (Nifedipine Er 60 Mg Tab.Er.24) 60 mg PO DAILY [facility]; Protocol Omeprazole (Omeprazole 20 Mg Capsule.Dr) 20 mg PO BID [facility] Last Admin: 01/02/22 20:31 Dose: 20 mg Documented by: Ondansetron HCl (Ondansetron Hcl 4 Mg/2 Ml Vial) 4 mg IVPUSH Q8H PRN PRN Reason: nausea Last Admin: 12/31/21 07:29 Dose: 4 mg Documented by: Quetiapine Fumarate (Quetiapine Fumarate 400 Mg Tablet) 400 mg PO BEDTIME [facility] Last Admin: 01/02/22 20:31 Dose: 400 mg Documented by: Risperidone (Risperidone 0.5 Mg Tablet) 0.5 mg PO BID [facility] Last Admin: 01/02/22 20:31 Dose: 0.5 mg Documented by: Sodium Chloride (0.9 % Sodium Chloride Flush 3 Ml Syringe) 3 ml IVFLUSH QSHIFT [facility] Last Admin: 01/02/22 21:58 Dose: Not Given Documented by: Vitamin D (Cholecalciferol (Vitamin D3) 25 Mcg Tablet) 25 mcg PO DAILY [facility] <Ana Bal PA-C - Last Filed: 01/03/22 08:16> Time Spent With Patient Time: Total time spent is greater than 50% in coordination of care (as documented) at patient's floor/unit and/or counseling patient: <Ana Bal PA-C - Last Filed: 01/03/22 08:16> Quality Stroke Does the patient have a stroke diagnosis?: No <Ana Bal PA-C - Last Filed: 01/03/22 08:16> VTE Prior VTE?: No <Ana Bal PA-C - Last Filed: 01/03/22 08:16> VTE Risk Level:: Medical - moderate - high <KYLIE Castillo Last Filed: 01/03/22 08:16> VTE Device Contraindication: N/A - Device Ordered <KYLIE Castillo Last Filed: 01/03/22 08:16> VTE Drug Contraindication: N/A - Med Ordered <KYLIE Castillo Last Filed: 01/03/22 08:16>
[2022-01-03] MEDS: Omeprazole 20 MG CAPSULE.DR PO ×2 (08:45→21:46)
[2022-01-03] MEDS: risperiDONE 0.5 MG TABLET PO ×2 (08:46→21:46)
[2022-01-03] MEDS: buPROPion HCl XL 150 MG TAB.ER.24H PO (08:46)
[2022-01-03] MEDS: Escitalopram Oxalate 10 MG TABLET PO (08:46)
[2022-01-03] MEDS: Cholecalciferol (Vitamin D3) 25 MCG TABLET PO (08:46)
[2022-01-03] MEDS: NIFEdipine ER 60 MG TAB.ER.24 PO (08:46)
[2022-01-03] MEDS: Morphine Sulfate 4 MG/ML CARTRIDGE 3 MG IVPUSH ×7 (08:46→21:46)
[2022-01-03] MEDS: clonazePAM 1 MG TABLET PO ×2 (08:57→21:46)
--- NOTE | 2022-01-03 09:15 | HO.PM.IMPN ---
Subjective Subjective Date of Service: 01/03/22 Interval History: cc: abd pain interval history:improved, had bm and flatus, ngt pulled Cardiovascular Cardiovascular: Reports no additional cardiovascular complaints Gastrointestinal Gastrointestinal: Reports no additional gastrointestinal complaints Physical Exam Vital Signs: Vital Signs: Last Vital Signs Temp 98.1 F 01/03/22 07:29 Pulse 61 01/03/22 07:29 Resp 18 01/03/22 07:29 BP 157/72 H 01/03/22 07:29 Pulse Ox 94 01/03/22 07:29 BMI result Body Mass Index 37.8 General:?comfortable, no acute distress and alert Orientation/consciousness:?patient oriented x3 Resp Effort & Inspection:?normal respiratory effort GI Inspection:?No distended Palpation (GI):?Soft to palpation, Tenderness to palpation present (GI) (epigastric region, lower abdomen), no guarding and not rigid Percussion:?Yes normal to percussion Skin General skin exam:?no rashes or lesions noted Neuro General:?patient oriented x3 Extrem General:?Yes no clubbing, cyanosis or edema Objective Data Active Medications Albuterol Sulfate (Albuterol Sulfate 90 Mcg 8 Gm Inhaler) 2 puff INHALE Q4H PRN PRN Reason: Wheezing Atorvastatin Calcium (Atorvastatin Calcium 40 Mg Tablet) 40 mg PO BEDTIME [facility] Last Admin: 01/02/22 20:31 Dose: 40 mg Documented by: THALIA Bupropion HCl (Bupropion Hcl Xl 150 Mg Tab.Er.24h) 150 mg PO DAILY [facility] Last Admin: 01/03/22 08:46 Dose: 150 mg Documented by: DERIC Clonazepam (Clonazepam 1 Mg Tablet) 1 mg PO TID PRN PRN Reason: Anxiety Last Admin: 01/03/22 08:57 Dose: 1 mg Documented by: DERIC Escitalopram Oxalate (Escitalopram Oxalate 10 Mg Tablet) 10 mg PO DAILY [facility] Last Admin: 01/03/22 08:46 Dose: 10 mg Documented by: DERIC Heparin Sodium (Porcine) (Heparin Sodium,Porcine 5,000 Unit/Ml Vial) 5,000 unit SUBCUT Q12H [facility] Last Admin: 01/03/22 06:13 Dose: 5,000 unit Documented by: THALIA Lactated Ringer's (Lr) 1,000 mls @ 100 mls/hr IVCONT .Q10H [facility] Last Admin: 01/03/22 06:12 Dose: 100 mls/hr Documented by: THALIA Lorazepam (Lorazepam 2 Mg/Ml Vial) 0.5 mg IVPUSH Q6H PRN PRN Reason: anxiety Last Admin: 01/02/22 06:40 Dose: 0.5 mg Documented by: DULCE Morphine Sulfate (Morphine Sulfate 4 Mg/Ml Cartridge) 3 mg IVPUSH Q2H PRN; Protocol PRN Reason: Pain, Severe (Pain Scale 7-10) Last Admin: 01/03/22 08:46 Dose: 3 mg Documented by: DERIC Naloxone HCl (Naloxone Hcl Nasal 4 Mg [place]) 4 mg NOSTRILALT DAILY PRN PRN Reason: Opioid Overdose Nifedipine (Nifedipine Er 60 Mg Tab.Er.24) 60 mg PO DAILY [facility]; Protocol Last Admin: 01/03/22 08:46 Dose: 60 mg Documented by: DERIC Omeprazole (Omeprazole 20 Mg Capsule.Dr) 20 mg PO BID [facility] Last Admin: 01/03/22 08:45 Dose: 20 mg Documented by: DERIC Ondansetron HCl (Ondansetron Hcl 4 Mg/2 Ml Vial) 4 mg IVPUSH Q8H PRN PRN Reason: nausea Last Admin: 12/31/21 07:29 Dose: 4 mg Documented by: PITA Quetiapine Fumarate (Quetiapine Fumarate 400 Mg Tablet) 400 mg PO BEDTIME [facility] Last Admin: 01/02/22 20:31 Dose: 400 mg Documented by: THALIA Risperidone (Risperidone 0.5 Mg Tablet) 0.5 mg PO BID [facility] Last Admin: 01/03/22 08:46 Dose: 0.5 mg Documented by: DERIC Sodium Chloride (0.9 % Sodium Chloride Flush 3 Ml Syringe) 3 ml IVFLUSH QSHIFT [facility] Last Admin: 01/03/22 08:46 Dose: Not Given Documented by: DERIC Non-Admin Reason: IV Running Vitamin D (Cholecalciferol (Vitamin D3) 25 Mcg Tablet) 25 mcg PO DAILY [facility] Last Admin: 01/03/22 08:46 Dose: 25 mcg Documented by: DERIC Labs CBC & Chem 7: 01/02/22 05:36 01/02/22 05:36 Assessment and Plan (1) Small bowel obstruction: Status: Acute Plan 66F presented with SBO SBO management per surgery HTN nifedipine mood disorder wellbutrin, lexapro, seroquel, risperdal mild intermittent asthma bronchodilators prn Quality Stroke Does the patient have a stroke diagnosis?: No VTE Prior VTE?: No VTE Risk Level:: Medical - moderate - high VTE Device Contraindication: N/A - Device Ordered VTE Drug Contraindication: N/A - Med Ordered
[2022-01-03 11:27] VITALS: BP 134/76; PULSE 69; RESP 18; TEMP 36.6; O2SAT 96
[2022-01-03] MEDS: 0.9 % Sodium Chloride Flush 3 ML SYRINGE IVFLUSH ×2 (15:17→19:31)
[2022-01-03 15:46] VITALS: BP 118/61; PULSE 71; RESP 18; TEMP 37.7; O2SAT 96
--- NOTE | 2022-01-03 16:20 | MHC.CM.PN ---
PT NOT MEDICALLY CLEARED FOR DC TODAY DCP REMAINS HOME WITH [employer] [facility] TO TRANSPORT
[2022-01-03 19:14] VITALS: BP 149/71; PULSE 77; RESP 18; TEMP 37.1; O2SAT 97
[2022-01-03] MEDS: Atorvastatin Calcium 40 MG TABLET PO (21:46)
[2022-01-03] MEDS: QUEtiapine Fumarate 400 MG TABLET PO (21:46)
[2022-01-03 23:31] VITALS: BP 115/60; PULSE 63; RESP 14; TEMP 36.7; O2SAT 92
[2022-01-04] VITALS (7 sets, daily range): BP systolic 121–143; BP diastolic 59–78; PULSE 68–95; RESP 14–18; TEMP 36.4–36.9; O2SAT 94–97
[2022-01-04] MEDS: Lactated Ringers 1,000 ML 100 ML IVCONT (04:19)
[2022-01-04] MEDS: Morphine Sulfate 4 MG/ML CARTRIDGE 3 MG IVPUSH ×6 (08:21→22:57)
--- NOTE | 2022-01-04 08:44 | P.PNGS_ITS ---
Subjective Subjective Date of Service: 01/04/22 <Ana Bal PA-C - Last Filed: 01/04/22 08:46> 01/04/22 <Erick Cody MD - Last Filed: 01/04/22 15:17> Interval history: Having gas pains. Continues to pass flatus. Tolerated clear liquids yesterday and is hungry. Passing flatus. OOB and ambulating in halls. <Ana Bal PA-C - Last Filed: 01/04/22 08:46> Physical Exam Vital Signs: Vital Signs: Last Vital Signs Temp 98.5 F 01/04/22 07:44 Pulse 78 01/04/22 07:44 Resp 14 01/04/22 07:44 BP 141/74 H 01/04/22 07:44 Pulse Ox 97 01/04/22 07:44 BMI result Body Mass Index 37.8 <KYLIE Castillo Last Filed: 01/04/22 08:46> Const: General: comfortable, no acute distress and alert <Ana torres PA-C - Last Filed: 01/04/22 08:46> Orientation/consciousness: patient oriented x3 <KYLIE Castillo Last Filed: 01/04/22 08:46> GI: Inspection: No distended <KYLIE Castillo Last Filed: 01/04/22 08:46> Palpation (GI): Soft to palpation and Tenderness to palpation present (GI) in the epigastrum (mild) <Ana Bal PA-C - Last Filed: 01/04/22 08:46> Percussion: Yes normal to percussion <Ana Bal PA-C - Last Filed: 01/04/22 08:46> Skin: General skin exam: no rashes or lesions noted <KYLIE Castillo Last Filed: 01/04/22 08:46> Neuro: General: patient oriented x3 <KYLIE Castillo Last Filed: 01/04/22 08:46> Objective Data Active Medications Albuterol Sulfate (Albuterol Sulfate 90 Mcg 8 Gm Inhaler) 2 puff INHALE Q4H PRN PRN Reason: Wheezing Atorvastatin Calcium (Atorvastatin Calcium 40 Mg Tablet) 40 mg PO BEDTIME [facility] Last Admin: 01/03/22 21:46 Dose: 40 mg Documented by: THALIA Bupropion HCl (Bupropion Hcl Xl 150 Mg Tab.Er.24h) 150 mg PO DAILY [facility] Last Admin: 01/03/22 08:46 Dose: 150 mg Documented by: DERIC Clonazepam (Clonazepam 1 Mg Tablet) 1 mg PO TID PRN PRN Reason: Anxiety Last Admin: 01/03/22 21:46 Dose: 1 mg Documented by: THALIA Escitalopram Oxalate (Escitalopram Oxalate 10 Mg Tablet) 10 mg PO DAILY [facility] Last Admin: 01/03/22 08:46 Dose: 10 mg Documented by: DERIC Heparin Sodium (Porcine) (Heparin Sodium,Porcine 5,000 Unit/Ml Vial) 5,000 unit SUBCUT Q12H [facility] Last Admin: 01/04/22 05:38 Dose: Not Given Documented by: THALIA Non-Admin Reason: ambulates Lactated Ringer's (Lr) 1,000 mls @ 100 mls/hr IVCONT .Q10H [facility] Last Admin: 01/04/22 04:19 Dose: 100 mls/hr Documented by: THALIA Lorazepam (Lorazepam 2 Mg/Ml Vial) 0.5 mg IVPUSH Q6H PRN PRN Reason: anxiety Last Admin: 01/02/22 06:40 Dose: 0.5 mg Documented by: DULCE Morphine Sulfate (Morphine Sulfate 4 Mg/Ml Cartridge) 3 mg IVPUSH Q2H PRN; Protocol PRN Reason: Pain, Severe (Pain Scale 7-10) Last Admin: 01/04/22 08:21 Dose: 3 mg Documented by: LEANDRO Naloxone HCl (Naloxone Hcl Nasal 4 Mg [place]) 4 mg NOSTRILALT DAILY PRN PRN Reason: Opioid Overdose Nifedipine (Nifedipine Er 60 Mg Tab.Er.24) 60 mg PO DAILY [facility]; Protocol Last Admin: 01/03/22 08:46 Dose: 60 mg Documented by: DERIC Omeprazole (Omeprazole 20 Mg Capsule.Dr) 20 mg PO BID [facility] Last Admin: 01/03/22 21:46 Dose: 20 mg Documented by: THALIA Ondansetron HCl (Ondansetron Hcl 4 Mg/2 Ml Vial) 4 mg IVPUSH Q8H PRN PRN Reason: nausea Last Admin: 12/31/21 07:29 Dose: 4 mg Documented by: PITA Quetiapine Fumarate (Quetiapine Fumarate 400 Mg Tablet) 400 mg PO BEDTIME [facility] Last Admin: 01/03/22 21:46 Dose: 400 mg Documented by: THALIA Risperidone (Risperidone 0.5 Mg Tablet) 0.5 mg PO BID [facility] Last Admin: 01/03/22 21:46 Dose: 0.5 mg Documented by: THALIA Sodium Chloride (0.9 % Sodium Chloride Flush 3 Ml Syringe) 3 ml IVFLUSH QSHIFT [facility] Last Admin: 01/03/22 19:31 Dose: 3 ml Documented by: THALIA Vitamin D (Cholecalciferol (Vitamin D3) 25 Mcg Tablet) 25 mcg PO DAILY [facility] Last Admin: 01/03/22 08:46 Dose: 25 mcg Documented by: DERIC <Ana Bal PA-C - Last Filed: 01/04/22 08:46> Labs CBC & Chem 7: : 01/02/22 05:36 01/02/22 05:36 <Ana Bal PA-C - Last Filed: 01/04/22 08:46> Procedures Date of Service Date of Service: 01/04/22 <Ana Bal PA-C - Last Filed: 01/04/22 08:46> Progress Note: A&P Assessment and plan (1) Small bowel obstruction: Status: Acute <Ana Bal PA-C - Last Filed: 01/04/22 08:46> Assessment and Plan: Feels much better Continues to have abdominal pain although she says that this is chronic Abdomen soft Tolerating diet Has good BMs and flatus Doing very well - abdominal pain otherwise seems to be chronic Plan to DC home tomorrow - she says she is comfortable with this plan <Erick Cody MD - Last Filed: 01/04/22 15:17> Plan 66 year old female admitted with SBO. NGT removed and started on clear liquids. Feels hungry but is having gas pains. Abd relatively benign, soft, mild epigastric tenderness persists. Will advance to low residue diet as tolerated. Continue to encourage OOB/ambulation. <Ana Bal PA-C - Last Filed: 01/04/22 08:46> Fall Risk Details Current Medications: Current Medications Albuterol Sulfate (Albuterol Sulfate 90 Mcg 8 Gm Inhaler) 2 puff INHALE Q4H PRN PRN Reason: Wheezing Atorvastatin Calcium (Atorvastatin Calcium 40 Mg Tablet) 40 mg PO BEDTIME [facility] Last Admin: 01/03/22 21:46 Dose: 40 mg Documented by: Bupropion HCl (Bupropion Hcl Xl 150 Mg Tab.Er.24h) 150 mg PO DAILY [facility] Last Admin: 01/03/22 08:46 Dose: 150 mg Documented by: Clonazepam (Clonazepam 1 Mg Tablet) 1 mg PO TID PRN PRN Reason: Anxiety Last Admin: 01/03/22 21:46 Dose: 1 mg Documented by: Escitalopram Oxalate (Escitalopram Oxalate 10 Mg Tablet) 10 mg PO DAILY [facility] Last Admin: 01/03/22 08:46 Dose: 10 mg Documented by: Heparin Sodium (Porcine) (Heparin Sodium,Porcine 5,000 Unit/Ml Vial) 5,000 unit SUBCUT Q12H [facility] Last Admin: 01/04/22 05:38 Dose: Not Given Documented by: Lactated Ringer's (Lr) 1,000 mls @ 100 mls/hr IVCONT .Q10H [facility] Last Admin: 01/04/22 04:19 Dose: 100 mls/hr Documented by: Lorazepam (Lorazepam 2 Mg/Ml Vial) 0.5 mg IVPUSH Q6H PRN PRN Reason: anxiety Last Admin: 01/02/22 06:40 Dose: 0.5 mg Documented by: Morphine Sulfate (Morphine Sulfate 4 Mg/Ml Cartridge) 3 mg IVPUSH Q2H PRN; Protocol PRN Reason: Pain, Severe (Pain Scale 7-10) Last Admin: 01/04/22 08:21 Dose: 3 mg Documented by: Naloxone HCl (Naloxone Hcl Nasal 4 Mg [place]) 4 mg NOSTRILALT DAILY PRN PRN Reason: Opioid Overdose Nifedipine (Nifedipine Er 60 Mg Tab.Er.24) 60 mg PO DAILY [facility]; Protocol Last Admin: 01/03/22 08:46 Dose: 60 mg Documented by: Omeprazole (Omeprazole 20 Mg Capsule.Dr) 20 mg PO BID [facility] Last Admin: 01/03/22 21:46 Dose: 20 mg Documented by: Ondansetron HCl (Ondansetron Hcl 4 Mg/2 Ml Vial) 4 mg IVPUSH Q8H PRN PRN Reason: nausea Last Admin: 12/31/21 07:29 Dose: 4 mg Documented by: Quetiapine Fumarate (Quetiapine Fumarate 400 Mg Tablet) 400 mg PO BEDTIME [facility] Last Admin: 01/03/22 21:46 Dose: 400 mg Documented by: Risperidone (Risperidone 0.5 Mg Tablet) 0.5 mg PO BID [facility] Last Admin: 01/03/22 21:46 Dose: 0.5 mg Documented by: Sodium Chloride (0.9 % Sodium Chloride Flush 3 Ml Syringe) 3 ml IVFLUSH QSHIFT [facility] Last Admin: 01/03/22 19:31 Dose: 3 ml Documented by: Vitamin D (Cholecalciferol (Vitamin D3) 25 Mcg Tablet) 25 mcg PO DAILY [facility] Last Admin: 01/03/22 08:46 Dose: 25 mcg Documented by: <Ana Bal PA-C - Last Filed: 01/04/22 08:46> Time Spent With Patient Time: Total time spent is greater than 50% in coordination of care (as documented) at patient's floor/unit and/or counseling patient: <Ana Bal PA-C - Last Filed: 01/04/22 08:46> Quality Stroke Does the patient have a stroke diagnosis?: No <Ana Bal PA-C - Last Filed: 01/04/22 08:46> VTE Prior VTE?: No <Ana Bal PA-C - Last Filed: 01/04/22 08:46> VTE Risk Level:: Medical - moderate - high <Ana Bal PA-C - Last Filed: 01/04/22 08:46> VTE Device Contraindication: N/A - Device Ordered <Ana Bal PA-C - Last Filed: 01/04/22 08:46> VTE Drug Contraindication: N/A - Med Ordered <KYLIE Castillo Last Filed: 01/04/22 08:46>
--- NOTE | 2022-01-04 09:06 | P.PNIM_ITS ---
Subjective Subjective Date of Service: 01/04/22 Interval History: cc: abd pain interval history: continues to have pain, though passing gas and stool Cardiovascular Cardiovascular: Reports no additional cardiovascular complaints Respiratory Respiratory: Reports no additional respiratory complaints Physical Exam Vital Signs: Vital Signs: Last Vital Signs Temp 98.5 F 01/04/22 07:44 Pulse 78 01/04/22 07:44 Resp 14 01/04/22 07:44 BP 141/74 H 01/04/22 07:44 Pulse Ox 97 01/04/22 07:44 BMI result Body Mass Index 37.8 Const General:?comfortable, no acute distress and alert Orientation/consciousness:?patient oriented x3 GI Inspection:?No distended Palpation (GI):?Soft to palpation and Tenderness to palpation present (GI) in the epigastrum (mild) Percussion:?Yes normal to percussion Skin General skin exam:?no rashes or lesions noted Neuro General:?patient oriented x3 Objective Data Active Medications Albuterol Sulfate (Albuterol Sulfate 90 Mcg 8 Gm Inhaler) 2 puff INHALE Q4H PRN PRN Reason: Wheezing Atorvastatin Calcium (Atorvastatin Calcium 40 Mg Tablet) 40 mg PO BEDTIME [facility] Last Admin: 01/03/22 21:46 Dose: 40 mg Documented by: THALIA Bupropion HCl (Bupropion Hcl Xl 150 Mg Tab.Er.24h) 150 mg PO DAILY [facility] Last Admin: 01/03/22 08:46 Dose: 150 mg Documented by: DERIC Clonazepam (Clonazepam 1 Mg Tablet) 1 mg PO TID PRN PRN Reason: Anxiety Last Admin: 01/03/22 21:46 Dose: 1 mg Documented by: THALIA Escitalopram Oxalate (Escitalopram Oxalate 10 Mg Tablet) 10 mg PO DAILY [facility] Last Admin: 01/03/22 08:46 Dose: 10 mg Documented by: DERIC Heparin Sodium (Porcine) (Heparin Sodium,Porcine 5,000 Unit/Ml Vial) 5,000 unit SUBCUT Q12H [facility] Last Admin: 01/04/22 05:38 Dose: Not Given Documented by: THALIA Non-Admin Reason: ambulates Lactated Ringer's (Lr) 1,000 mls @ 100 mls/hr IVCONT .Q10H [facility] Last Admin: 01/04/22 04:19 Dose: 100 mls/hr Documented by: THALIA Lorazepam (Lorazepam 2 Mg/Ml Vial) 0.5 mg IVPUSH Q6H PRN PRN Reason: anxiety Last Admin: 01/02/22 06:40 Dose: 0.5 mg Documented by: DULCE Morphine Sulfate (Morphine Sulfate 4 Mg/Ml Cartridge) 3 mg IVPUSH Q2H PRN; Protocol PRN Reason: Pain, Severe (Pain Scale 7-10) Last Admin: 01/04/22 08:21 Dose: 3 mg Documented by: LEANDRO Naloxone HCl (Naloxone Hcl Nasal 4 Mg [place]) 4 mg NOSTRILALT DAILY PRN PRN Reason: Opioid Overdose Nifedipine (Nifedipine Er 60 Mg Tab.Er.24) 60 mg PO DAILY [facility]; Protocol Last Admin: 01/03/22 08:46 Dose: 60 mg Documented by: DERIC Omeprazole (Omeprazole 20 Mg Capsule.Dr) 20 mg PO BID [facility] Last Admin: 01/03/22 21:46 Dose: 20 mg Documented by: THALIA Ondansetron HCl (Ondansetron Hcl 4 Mg/2 Ml Vial) 4 mg IVPUSH Q8H PRN PRN Reason: nausea Last Admin: 12/31/21 07:29 Dose: 4 mg Documented by: PITA Quetiapine Fumarate (Quetiapine Fumarate 400 Mg Tablet) 400 mg PO BEDTIME [facility] Last Admin: 01/03/22 21:46 Dose: 400 mg Documented by: THALIA Risperidone (Risperidone 0.5 Mg Tablet) 0.5 mg PO BID [facility] Last Admin: 01/03/22 21:46 Dose: 0.5 mg Documented by: THALIA Sodium Chloride (0.9 % Sodium Chloride Flush 3 Ml Syringe) 3 ml IVFLUSH QSHIFT [facility] Last Admin: 01/03/22 19:31 Dose: 3 ml Documented by: THALIA Vitamin D (Cholecalciferol (Vitamin D3) 25 Mcg Tablet) 25 mcg PO DAILY [facility] Last Admin: 01/03/22 08:46 Dose: 25 mcg Documented by: DERIC Labs CBC & Chem 7: 01/02/22 05:36 01/02/22 05:36 Assessment and Plan (1) Small bowel obstruction: Status: Acute Plan 66F presented with SBO SBO management per surgery HTN adeuqate control cotninue nifedipine mood disorder wellbutrin, lexapro, seroquel, risperdal mild intermittent asthma bronchodilators prn Quality Stroke Does the patient have a stroke diagnosis?: No VTE Prior VTE?: No VTE Risk Level:: Medical - moderate - high VTE Device Contraindication: N/A - Device Ordered VTE Drug Contraindication: N/A - Med Ordered
[2022-01-04] MEDS: buPROPion HCl XL 150 MG TAB.ER.24H PO (09:37)
[2022-01-04] MEDS: risperiDONE 0.5 MG TABLET PO ×2 (09:38→22:57)
[2022-01-04] MEDS: Cholecalciferol (Vitamin D3) 25 MCG TABLET PO (09:38)
[2022-01-04] MEDS: Escitalopram Oxalate 10 MG TABLET PO (09:38)
[2022-01-04] MEDS: Omeprazole 20 MG CAPSULE.DR PO ×2 (09:38→22:57)
[2022-01-04] MEDS: NIFEdipine ER 60 MG TAB.ER.24 PO (09:39)
--- NOTE | 2022-01-04 13:14 | P.CDIC_ITS ---
CDI Concurrent Query Documentation Clarification: PHYSICIAN'S DOCUMENTATION REQUEST Date of Query: 01/04/22 1315 Patient Name: Delphine Martínez Admit Date: 12/31/21 Dear Doctor, A review of the medical record indicates additional documentation may be needed. Please review below and update the documentation accordingly. Risk Factors/Clinical Indicators/Treatments CT abdomen: SBO transition point left upper quadrant along ventral abdominal wall Per H&P: SBO likely secondary to adhesions Based on the above, could you clarify in the Progress Notes the appropriate diagnosis, if significant, that supports the above abnormalities and additional evaluation, monitoring, and/or treatment rendered: * Intestinal adhesions partial obstruction * Intestinal adhesions complete obstruction * Other (please specify) * Unable to determine Use of terms such as suspected, likely, concern for, or probable (associated with a specific diagnosis that is being evaluated, monitored, or treated as if it exists) are acceptable and can be coded in the inpatient setting, when documented at the time of discharge. Thank you, Patricia Alcantar [insert CDI's credentials] Extension: [4-digit phone extension] Please use your independent medical judgment in providing your response. THIS QUERY IS PART OF THE PERMANENT MEDICAL RECORD Provider Response: Other Other Diagnosis: Partial small bowel obstruction likely secondary to adhesions postop
[2022-01-04] MEDS: 0.9 % Sodium Chloride Flush 3 ML SYRINGE IVFLUSH ×2 (15:31→22:58)
[2022-01-04] MEDS: Heparin Sodium,Porcine 5,000 UNIT/ML VIAL 5000 UNIT SUBCUT (20:37)
[2022-01-04] MEDS: Atorvastatin Calcium 40 MG TABLET PO (22:57)
[2022-01-04] MEDS: QUEtiapine Fumarate 400 MG TABLET PO (22:57)
[2022-01-04] MEDS: clonazePAM 1 MG TABLET PO (22:58)
[2022-01-05 03:47] VITALS: BP 125/64; PULSE 85; RESP 14; TEMP 36.6; O2SAT 95
[2022-01-05 07:17] VITALS: BP 112/63; PULSE 90; RESP 18; TEMP 36.8; O2SAT 96
[2022-01-05] MEDS: Morphine Sulfate 4 MG/ML CARTRIDGE 3 MG IVPUSH (08:21)
--- NOTE | 2022-01-05 08:21 | P.PNGS_ITS ---
Subjective Subjective Date of Service: 01/05/22 Interval history: Feels much better Tolerating diet Good flatus and BMs Says she wants to go home Physical Exam Vital Signs: Vital Signs: Last Vital Signs Temp 98.3 F 01/05/22 07:17 Pulse 90 01/05/22 07:17 Resp 18 01/05/22 07:17 BP 112/63 01/05/22 07:17 Pulse Ox 96 01/05/22 07:17 BMI result Body Mass Index 37.8 Const: General: comfortable and no acute distress Resp: Effort & Inspection: normal respiratory effort Cardio: Rate: regular rate GI: Palpation (GI): Soft to palpation, nontender and no guarding Objective Data Active Medications Albuterol Sulfate (Albuterol Sulfate 90 Mcg 8 Gm Inhaler) 2 puff INHALE Q4H PRN PRN Reason: Wheezing Atorvastatin Calcium (Atorvastatin Calcium 40 Mg Tablet) 40 mg PO BEDTIME [facility] Last Admin: 01/04/22 22:57 Dose: 40 mg Documented by: ADRY Bupropion HCl (Bupropion Hcl Xl 150 Mg Tab.Er.24h) 150 mg PO DAILY [facility] Last Admin: 01/04/22 09:37 Dose: 150 mg Documented by: FAUSTO Clonazepam (Clonazepam 1 Mg Tablet) 1 mg PO TID PRN PRN Reason: Anxiety Last Admin: 01/04/22 22:58 Dose: 1 mg Documented by: ADRY Escitalopram Oxalate (Escitalopram Oxalate 10 Mg Tablet) 10 mg PO DAILY [facility] Last Admin: 01/04/22 09:38 Dose: 10 mg Documented by: FAUSTO Heparin Sodium (Porcine) (Heparin Sodium,Porcine 5,000 Unit/Ml Vial) 5,000 unit SUBCUT Q12H [facility] Last Admin: 01/04/22 20:37 Dose: 5,000 unit Documented by: ADRY Lactated Ringer's (Lr) 1,000 mls @ 100 mls/hr IVCONT .Q10H [facility] Last Admin: 01/04/22 20:41 Dose: Not Given Documented by: ADRY Non-Admin Reason: Patient Refused Morphine Sulfate (Morphine Sulfate 4 Mg/Ml Cartridge) 3 mg IVPUSH Q2H PRN; Pro tocol PRN Reason: Pain, Severe (Pain Scale 7-10) Last Admin: 01/04/22 22:57 Dose: 3 mg Documented by: ADRY Naloxone HCl (Naloxone Hcl Nasal 4 Mg [place]) 4 mg NOSTRILALT DAILY PRN PRN Reason: Opioid Overdose Nifedipine (Nifedipine Er 60 Mg Tab.Er.24) 60 mg PO DAILY [facility]; Protocol Last Admin: 01/04/22 09:39 Dose: 60 mg Documented by: FAUSTO Comments: 148/81, 78 Omeprazole (Omeprazole 20 Mg Capsule.Dr) 20 mg PO BID [facility] Last Admin: 01/04/22 22:57 Dose: 20 mg Documented by: ADRY Ondansetron HCl (Ondansetron Hcl 4 Mg/2 Ml Vial) 4 mg IVPUSH Q8H PRN PRN Reason: nausea Last Admin: 12/31/21 07:29 Dose: 4 mg Documented by: PITA Quetiapine Fumarate (Quetiapine Fumarate 400 Mg Tablet) 400 mg PO BEDTIME [facility] Last Admin: 01/04/22 22:57 Dose: 400 mg Documented by: ADRY Risperidone (Risperidone 0.5 Mg Tablet) 0.5 mg PO BID [facility] Last Admin: 01/04/22 22:57 Dose: 0.5 mg Documented by: ADRY Sodium Chloride (0.9 % Sodium Chloride Flush 3 Ml Syringe) 3 ml IVFLUSH QSHIFT [facility] Last Admin: 01/04/22 22:58 Dose: 3 ml Documented by: ADRY Vitamin D (Cholecalciferol (Vitamin D3) 25 Mcg Tablet) 25 mcg PO DAILY [facility] Last Admin: 01/04/22 09:38 Dose: 25 mcg Documented by: FAUSTO Labs CBC & Chem 7: 01/02/22 05:36 01/02/22 05:36 Microbiology Microbiology Results: Microbiology 12/31/21 01:03 Blood Culture - Final Blood - Venous No growth after 5 days. 12/31/21 01:02 Blood Culture - Final Blood - Venous No growth after 5 days. Procedures Date of Service Date of Service: 01/05/22 Progress Note: A&P Assessment and plan (1) Small bowel obstruction: Status: Acute Assessment and Plan: Symptoms have resolved Good GI functions Looks well Okay to OR home Fall Risk Details Current Medications: Current Medications Albuterol Sulfate (Albuterol Sulfate 90 Mcg 8 Gm Inhaler) 2 puff INHALE Q4H PRN PRN Reason: Wheezing Atorvastatin Calcium (Atorvastatin Calcium 40 Mg Tablet) 40 mg PO BEDTIME [facility] Last Admin: 01/04/22 22:57 Dose: 40 mg Documented by: Bupropion HCl (Bupropion Hcl Xl 150 Mg Tab.Er.24h) 150 mg PO DAILY [facility] Last Admin: 01/04/22 09:37 Dose: 150 mg Documented by: Clonazepam (Clonazepam 1 Mg Tablet) 1 mg PO TID PRN PRN Reason: Anxiety Last Admin: 01/04/22 22:58 Dose: 1 mg Documented by: Escitalopram Oxalate (Escitalopram Oxalate 10 Mg Tablet) 10 mg PO DAILY [facility] Last Admin: 01/04/22 09:38 Dose: 10 mg Documented by: Heparin Sodium (Porcine) (Heparin Sodium,Porcine 5,000 Unit/Ml Vial) 5,000 unit SUBCUT Q12H [facility] Last Admin: 01/04/22 20:37 Dose: 5,000 unit Documented by: Lactated Ringer's (Lr) 1,000 mls @ 100 mls/hr IVCONT .Q10H [facility] Last Admin: 01/04/22 20:41 Dose: Not Given Documented by: Morphine Sulfate (Morphine Sulfate 4 Mg/Ml Cartridge) 3 mg IVPUSH Q2H PRN; Protocol PRN Reason: Pain, Severe (Pain Scale 7-10) Last Admin: 01/04/22 22:57 Dose: 3 mg Documented by: Naloxone HCl (Naloxone Hcl Nasal 4 Mg [place]) 4 mg NOSTRILALT DAILY PRN PRN Reason: Opioid Overdose Nifedipine (Nifedipine Er 60 Mg Tab.Er.24) 60 mg PO DAILY [facility]; Protocol Last Admin: 01/04/22 09:39 Dose: 60 mg Documented by: Omeprazole (Omeprazole 20 Mg Capsule.Dr) 20 mg PO BID [facility] Last Admin: 01/04/22 22:57 Dose: 20 mg Documented by: Ondansetron HCl (Ondansetron Hcl 4 Mg/2 Ml Vial) 4 mg IVPUSH Q8H PRN PRN Reason: nausea Last Admin: 12/31/21 07:29 Dose: 4 mg Documented by: Quetiapine Fumarate (Quetiapine Fumarate 400 Mg Tablet) 400 mg PO BEDTIME [facility] Last Admin: 01/04/22 22:57 Dose: 400 mg Documented by: Risperidone (Risperidone 0.5 Mg Tablet) 0.5 mg PO BID [facility] Last Admin: 01/04/22 22:57 Dose: 0.5 mg Documented by: Sodium Chloride (0.9 % Sodium Chloride Flush 3 Ml Syringe) 3 ml IVFLUSH QSHIFT [facility] Last Admin: 01/04/22 22:58 Dose: 3 ml Documented by: Vitamin D (Cholecalciferol (Vitamin D3) 25 Mcg Tablet) 25 mcg PO DAILY [facility] Last Admin: 01/04/22 09:38 Dose: 25 mcg Documented by: Time Spent With Patient Time: Total time spent is greater than 50% in coordination of care (as documented) at patient's floor/unit and/or counseling patient: Quality Stroke Does the patient have a stroke diagnosis?: No VTE Prior VTE?: No VTE Risk Level:: Medical - moderate - high VTE Device Contraindication: N/A - Device Ordered VTE Drug Contraindication: N/A - Med Ordered
[2022-01-05] MEDS: Escitalopram Oxalate 10 MG TABLET PO (08:24)
[2022-01-05] MEDS: NIFEdipine ER 60 MG TAB.ER.24 PO (08:25)
[2022-01-05] MEDS: Cholecalciferol (Vitamin D3) 25 MCG TABLET PO (08:25)
[2022-01-05] MEDS: risperiDONE 0.5 MG TABLET PO (08:25)
[2022-01-05] MEDS: buPROPion HCl XL 150 MG TAB.ER.24H PO (08:25)
[2022-01-05] MEDS: Heparin Sodium,Porcine 5,000 UNIT/ML VIAL 5000 UNIT SUBCUT (08:26)
--- NOTE | 2022-01-05 08:28 | MHC.CM.PN ---
PLAN IS HOME - SELF CARE PATIENT TO RESUME HER [employer]. RN AWARE OF PLAN. IMM 4 IN CHART
[2022-01-05] MEDS: clonazePAM 1 MG TABLET PO (08:31)
[2022-01-05] MEDS: 0.9 % Sodium Chloride Flush 3 ML SYRINGE IVFLUSH (08:31)
[2022-01-05] MEDS: Omeprazole 20 MG CAPSULE.DR PO (08:31)
--- NOTE | 2022-01-05 10:49 | PM.DS ---
DS: Providers Provider Date of Service: 01/05/22 Date of admission: 12/31/21 06:04 Primary care physician: Bela Vasquez MD Attending physician on admission: Erick Cody Consults: 12/31/21 06:07 Consult to Hospitalist Routine Consulting Provider: Hospitalist Reason For Exam: htn Attending physician on discharge: Erick Cody DS: Diagnosis Discharge Diagnosis (1) Small bowel obstruction: Status: Acute DS: Summary Hospital Course Hospital Course: BRIEF HPI: Delphine Martínez is a 66 year old female who came in last night because of what she described as diffuse abdominal pain. She says this started around 18:00 last night. He describes episodes of nausea /vomiting as well. She says she was admitted to the hospital about 2 years ago for similar problem. She also describes having an NG tube placed at that time. She says she had laparotomy with a colostomy about 10 years ago in [facility] and had this eventually reversed. She is uncertain as to why this was done at that time. She describes flatus and bowel movements. CAT scan shows what appears to be small-bowel obstruction with transition point in the left upper quadrant. HOSPITAL COURSE: The patient was admitted to the surgical service for further treatment of the SBO. Supportive measures were continued- an NGT was placed for decompression, kept NPO and on IVF with PRN analgesics and antiemetics. She did have a leukocytosis upon admission which was likely secondary to vomiting and this was trended. Hospitalist consult was obtained for management of hypertension. The patient had an uncomplicated hospital course. She improved symptomatically with supportive measures. She began to pass flatus. Her NGT was able to be removed on HD #2. Her WBC normalized. Her diet was slowly advanced to clear liquids and then solid food as tolerated. She was tolerating a solid diet with good GI function, remained clinically appearing well with a benign abd exam with resolution of her symptoms. She was discharged to home on 01/05/22 in stable condition. She is to follow up with her PCP. Status at Discharge Functional status at discharge: independent ambulation Overall status at discharge: patient is back to baseline Time Spent with Patient Time attestation: Total time spent providing and/or coordinating discharge services: Discharge coordination time: Less than 30 minutes Quality: Safe Use of Opioids Does Pt have an Active Cancer Diagnosis on the Problem List?: No Quality: Stroke Does the patient have a stroke diagnosis?: No Physical Exam Vital Signs: Vital Signs: Last Vital Signs Temp 98.3 F 01/05/22 07:17 Pulse 90 01/05/22 07:17 Resp 18 01/05/22 07:17 BP 112/63 01/05/22 07:17 Pulse Ox 96 01/05/22 07:17 BMI result Body Mass Index 37.8 Const: General: comfortable, no acute distress and alert Orientation/consciousness: patient oriented x3 GI: Inspection: No distended Palpation (GI): Soft to palpation, nontender, no guarding and not rigid Skin: General skin exam: no rashes or lesions noted Neuro: General: patient oriented x3 Discharge Plan Discharge Patient Disposition: Home, Self-Care Discharge Diagnosis: SBO Referrals: Bela Vasquez MD [Primary Care Provider] - 1 Week Discharge Medications: Continued atorvastatin 40 mg tablet 1 tab PO BEDTIME 0RF clonazepam 1 mg tablet 1 tab PO TID PRN (Reason: Anxiety) 0RF omeprazole 20 mg capsule,delayed release(DR/EC) 1 cap PO BID 0RF albuterol sulfate 90 mcg/actuation HFA aerosol inhaler 2 puff PO Q4-6H PRN (Reason: Wheezing) 0RF risperidone 0.5 mg tablet 1 tab PO BID 0RF oxycodone 5 mg tablet 1 tab PO Q12H PRN (Reason: pain) 0RF escitalopram oxalate 10 mg tablet 1 tab PO QAM 0RF oxycodone [OxyContin] 10 mg tablet,oral only,ext.rel.12 hr 1 tab PO Q12H 0RF nifedipine 60 mg tablet extended release 24 hr 1 tab PO DAILY 0RF quetiapine 400 mg tablet 1 tab PO BEDTIME 0RF cholecalciferol (vitamin D3) 25 mcg (1,000 unit) tablet 1 tab PO DAILY 0RF naloxone [Narcan] 4 mg/actuation spray,non-aerosol 2 spray intranasal NEEDED PRN (Reason: Opioid Overdose) 0RF bupropion HCl 150 mg Tablet Extended Release 24 Hr 150 mg PO QAM 0RF Discharge Orders: Discharge Order (Routine); Ordered 01/05/22 Ordered By: Erick Cody Diet: advance to usual diet Activity on Discharge: As tolerated Stand Alone Forms: Patient Portal Discharge page Care Plan Goals: Return to baseline health and gradual return to activity. Health Concerns: SBO Plan of Treatment: Supportive measures F/u PCP Assessment: Improved Discharge Date/Time: 01/05/22 10:15
== END 2022-01-05 10:15 | disposition home or self-care (01) | DRG 390 ==
LOC: HO.ED 12-31 02:50 → HO.EDOVER 12-31 06:09 → HO.S3 12-31 11:33
PROVIDERS: Internal Medicine; Admitting Provider Surgery; Emergency Provider Student in an Organized Health Care Education/Training Program; PCP Family Medicine; Visit Provider Surgery
DX: K91.31 Postprocedural partial intestinal obstruction (principal); K21.9 Gastro-esophageal reflux disease without esophagitis; E66.01 Morbid (severe) obesity due to excess calories; Z68.37 Body mass index [BMI] 37.0-37.9, adult; I10 Essential (primary) hypertension; F32.A Depression, unspecified; J45.20 Mild intermittent asthma, uncomplicated; Z20.822 Contact with and (suspected) exposure to COVID-19; Z79.899 Other long term (current) drug therapy
CPT/HCPCS: 36415; 71045; 74177; 80048; 80053; 81003; 83605; 83690; 85025; 85027; 87040; 87635; 96365; 96375; 96376; 99285; J1170; J2060; J2270; J2405; J2543; Q9967

== ENCOUNTER 2022-04-07 12:07 | Outpatient (REF) | payer OTHER, SELFPAY ==
--- NOTE | ~2022-04-07 | MM_ITS ---
EXAMINATION: MM SCREENING DIGITAL BREAST TOMOSYNTHESIS, BILATERAL CLINICAL INFORMATION: Screening. Asymptomatic. The lifetime risk of breast cancer based on the Tyrer-Cuzick Model is 6%. COMPARISON: Mammography: 02/19/2021, 04/23/2018, 12/17/2014 TECHNIQUE: Digital breast tomosynthesis is performed in both the craniocaudal and mediolateral oblique views along with computer-aided detection (CAD). Synthesized 2D images are generated from the tomosynthesis. FINDINGS: The breasts are heterogeneously dense, which may obscure small masses (ACR BI-RADS breast composition Category c). There are no significant masses, abnormal calcifications, or other abnormalities. Parenchymal pattern is similar to prior studies. There is no developing density or architectural abnormality. The axilla and skin contours are unremarkable. No significant changes. MM/MM tomosynthesis screening BI IMPRESSION: No mammographic evidence of malignancy. ASSESSMENT: BI-RADS 1: Negative RECOMMENDATION: Routine annual mammography screening. This patient's information was entered into a reminder system with a target due date for their next mammogram.
== END 2022-04-07 12:08 | disposition home or self-care (01) ==
LOC: HO.MAMMO 12:07
PROVIDERS: Visit Provider Family Medicine
DX: Z12.31 Encounter for screening mammogram for malignant neoplasm of breast (principal)
CPT/HCPCS: 77063; 77067

== ENCOUNTER 2022-04-19 08:06 | Emergency (ER) | payer OTHER, SELFPAY ==
[2022-04-19 08:09] VITALS: BP 106/74; PULSE 82; O2SAT 98
== END 2022-04-19 10:15 | disposition left against medical advice (07) ==
PROVIDERS: Emergency Provider Emergency Medicine
DX: R10.9 Unspecified abdominal pain (principal); I10 Essential (primary) hypertension

== ENCOUNTER 2022-04-20 08:33 | Inpatient (IN) | payer OTHER, SELFPAY ==
--- NOTE | ~2022-04-20 | XR_ITS ---
EXAMINATION: XR CHEST CLINICAL INFORMATION: Post NG tube COMPARISON: Chest radiograph 12/31/2021 TECHNIQUE: Frontal view of the chest was obtained. FINDINGS: An NG tube is present coiled in the stomach with its tip at the fundus. The exam is otherwise normal. No infiltrates, effusions or lung masses are seen. Heart size normal. XR/XR chest 1V IMPRESSION: NG tube is in the stomach
--- NOTE | ~2022-04-20 | CT_ITS ---
EXAMINATION: CT ABDOMEN AND PELVIS WITHOUT CONTRAST CLINICAL INFORMATION: Abdominal pain. Small bowel obstruction with colostomy in January 21. COMPARISON: Selected images from 12/31/2021 and prior TECHNIQUE: Multidetector volumetric imaging was performed from the superior aspect of the liver through the pubic symphysis. Sagittal and coronal reformatted images were obtained on the technologist's workstation. This CT examination was performed using dose optimization techniques as appropriate, variously including the following: *Automated exposure control *Adjustment of mA and/or kV according to patient size (this includes techniques or standardized protocols for targeted exams where dose is matched to indication/reason for exam; i.e. extremities or head) *Use of iterative reconstruction technique DLP: 730.9 mGy-cm FINDINGS: LUNG BASES: The lungs are clear. Small hiatal hernia reidentified. No chest wall mass or adenopathy. LIVER, GALLBLADDER, AND BILIARY TREE: Stable prominence of the bile ducts likely postoperative in etiology. Status post cholecystectomy. PANCREAS: Diffuse fatty replacement of the pancreas SPLEEN: Apparent accessory spleen is partial volume averaging with the pancreatic tail. Granuloma noted medially. ADRENAL GLANDS: Unremarkable. KIDNEYS AND URETERS: No mass or hydronephrosis. Tiny calcifications are likely renal vascular in etiology. No hydroureter. BLADDER: The bladder is largely empty and unremarkable. GASTROINTESTINAL TRACT: Proximal small bowel loops are mildly dilated and fluid-filled. There is a tethering of small bowel loops in the left lower quadrant. The terminal ileum is decompressed. I suspect this represents an early small bowel obstruction. This is a different transition point in noted on the prior CT. There is mesenteric fat stranding and trace free fluid between bowel loops also suggesting an acute process. There is a large amount of stool in the cecum which is medially directed. No definite evidence of colitis. The remainder of the large bowel is decompressed. There is a colocolic anastomosis at the rectosigmoid junction. No free air. ABDOMINAL WALL: Extensive postsurgical changes again noted from prior laparotomies. No ventral hernia. LYMPH NODES: Normal. VASCULAR: Mild atherosclerotic peripheral vascular disease. PELVIC VISCERA: Status post hysterectomy. The vaginal cuff is normal in appearance. No adnexal mass. OSSEOUS STRUCTURES: Prior lumbar fusion and laminectomy. No acute osseous finding. CT/CT abdomen pelvis wo con IMPRESSION: 1. Early small bowel obstruction. Dilated fluid-filled small bowel loops with transition in the lower abdomen, fever adhesive band. Small quantities of free fluid and mesenteric fat stranding suggesting an acute process. This is a different point of obstruction then noted on the prior CT of 12/31/2021. 2. Large amount of stool in the cecum. No evidence of large bowel obstruction or colitis. 3. Patient: Mandeep anastomosis at the rectosigmoid junction. 4. Cholecystectomy. Stable postoperative prominence of the bile ducts. Fleischner guidelines were followed.
[2022-04-20 09:17] VITALS: BP 134/73; PULSE 96; RESP 17; TEMP 36.1; O2SAT 94; BMI 40.8
[2022-04-20 10:03] LABS: MANUAL DIFF FLAG NO
[2022-04-20 10:05] LABS: Basophils Percent Auto 0.3 % (0-2); Eosinophils Absolute Auto 0.1 X10*3/uL (0.0-0.4); Eosinophils Percent Auto 1.2 % (0-4); Hematocrit 39.1 % (37.0-47.0); Hemoglobin 12.5 g/dl (12.0-16.0); Imm Gran Abs Auto 0.04 X10*3/uL (0.00-0.03); Imm Gran Pct Auto 0.4 % (0.0-0.4); Lymphocytes Absolute Auto 1.1 X10*3/uL (1.2-4.9); Lymphocytes Percent Auto 10.9 % (20-40); Mean Corpuscular Hemoglobin 28.3 pg (27.0-33.0); Mean Corpuscular Volume 88.5 fL (80.0-98.0); Monocytes Absolute Auto 0.5 X10*3/uL (0.1-1.2); Monocytes Percent Auto 4.9 % (2-11); Neutrophils Absolute Auto 8.4 x10*3/uL (2.0-8.3); Neutrophils Percent Auto 82.3 % (45-73); Platelet Count 311 X10*3/uL (160-400); Red Blood Count 4.42 X10*6/uL (4.20-5.50); Red Cell Distribution Width 12.8 % (11.0-16.0); White Blood Count 10.2 X10*3/uL (4.8-10.8)
[2022-04-20 10:20] LABS: Alanine Aminotransferase 15 U/L (0-31); Albumin Level 4.5 g/dL (3.5-5.0); Alkaline Phosphatase 100 U/L (39-117); Anion Gap 11 (12-20); Aspartate Amino Transferase 17 U/L (5-31); Bilirubin Direct 0.2 mg/dL (0.0-0.5); Bilirubin Total 0.3 mg/dL (0.0-1.0); Blood Urea Nitrogen 12 mg/dL (9-16); Calcium 9.5 mg/dL (8.4-10.2); Carbon Dioxide 28 mmol/L (22-29); Chloride 109 mmol/L (96-108); Creatinine Clr Calc Pharmacy 50.5; Estimated Glomerular Filt Rate 46; Glucose Random 129 mg/dL (60-115); Lipase 8 U/L (8-78); Potassium 4.5 mmol/L (3.3-5.1); Sodium 143 mmol/L (135-145); Total Protein 7.5 g/dL (6.5-8.0)
--- NOTE | 2022-04-20 16:21 | ED_ITS ---
HPI - Abdominal Pain General Chief Complaint: Abdominal Pain Stated Complaint: Abd pain Time Seen by Provider: 04/20/22 16:17 Source: patient Mode of arrival: ambulatory Limitations: no limitations History of Present Illness HPI narrative: 66-year-old female presents emergency room complaining of abdominal pain. Patient has history of small-bowel obstruction most recently in December she had had a colostomy in the past with reversal she states that she takes oxycodone for pain her pains now uncontrolled she is having regular bowel movements and is eating okay. She denies fevers chills cough or nausea she denies any diarrhea or blood in her stools. MD elicited complaint: abdominal pain Pertinent past history: none Related Data Home Medications Medication Instructions Recorded Confirmed albuterol sulfate 90 mcg/actuation 2 puff PO Q4-6H PRN Wheezing 07/14/20 12/31/21 aerosol inhaler atorvastatin 40 mg tablet 1 tab PO BEDTIME 07/14/20 12/31/21 clonazepam 1 mg tablet 1 tab PO TID PRN Anxiety 07/14/20 12/31/21 escitalopram oxalate 10 mg tablet 1 tab PO QAM 07/14/20 12/31/21 omeprazole 20 mg capsule,delayed 1 cap PO BID 07/14/20 12/31/21 release oxycodone 10 mg tablet,crush 1 tab PO Q12H 07/14/20 12/31/21 resistant,extended release 12 hr (OxyContin) oxycodone 5 mg tablet 1 tab PO Q12H PRN pain 07/14/20 12/31/21 risperidone 0.5 mg tablet 1 tab PO BID 07/14/20 01/02/22 bupropion HCl 150 mg 24 hr tablet, 150 mg PO QAM 12/31/21 12/31/21 extended release cholecalciferol (vitamin D3) 25 1 tab PO DAILY 12/31/21 12/31/21 mcg (1,000 unit) tablet naloxone 4 mg/actuation nasal 2 spray intranasal NEEDED PRN 12/31/21 12/31/21 spray (Narcan) Opioid Overdose nifedipine 60 mg tablet,extended 1 tab PO DAILY 12/31/21 12/31/21 release 24 hr quetiapine 400 mg tablet 1 tab PO BEDTIME 12/31/21 12/31/21 Allergies Allergy/AdvReac Type Severity Reaction Status Date / Time No Known Allergies Allergy Verified 10/31/20 12:57 Review of Systems Review of Systems Review of systems: General: Patient denies any fever chills recent illness or falls Musculoskeletal: Denies back pain or body aches or other injuries HEENT: denies headache, runny nose, ear pain Respiratory: denies shortness of breath, cough Cardiovascular: no chest pain or palpitations : denies dysuria, frequency Abdomen: no nausea vomiting She does complain of generalized abdominal pain Extremities: no swelling, no pain Skin: no diaphoresis Yes all other systems are reviewed and are negative PMFSH Past Medical History Medical History Anxiety Asthma Depression Elevated cholesterol GERD (gastroesophageal reflux disease) HTN (hypertension) Hx of renal calculi Hx of small bowel obstruction Surgical History History of Salomon fundoplication Hx of colonoscopy Hx of hysterectomy, total Family History Family History Father PVD (peripheral vascular disease) Mother Depression Social History Social History Household Members: None Housing: Apartment Do you presently have visiting nurse or other home services: Yes ([employer] radar operator/navigator) Alcohol intake: never Patient Tobacco Use Status: Never used Tobacco Use of substances other than those prescribed or required for medical reasons: No Advance Directives: No Advance Directives Information Provided: Yes service: No Current occupational status: unemployed Physical Exam ED Vital Signs: Vital Signs - 24 hr 04/20/22 09:17 04/20/22 17:03 04/20/22 18:00 Temperature 97 F 98.1 F Pulse Rate 96 73 71 Respiratory Rate 17 18 18 Blood Pressure 134/73 134/70 149/73 H Pulse Oximetry 94 99 97 Oxygen Delivery Method Room Air Room Air Room Air BMI result Body Mass Index 40.8 General: Well-appearing well-nourished in no signs of distress HEENT: Normocephalic atraumatic? Neck: No signs of JVD, no masses no tenderness or lymphadenopathy Cardiovascular: Regular rate and rhythm Respiratory: Clear to auscultation bilaterally Abdomen: Soft large healing scar to mid abdomen tenderness along the mid aspect of the scar the right lower quadrant and left lower quadrantr no masses Extremities: Normal pedal pulses no signs of edema Skin: Dry warm no rashes Back: No tenderness full ROM MDM - Abdominal Pain MDM Narrative Medical decision making narrative: acute on chronic abdominal pain with multiple surgeries and small-bowel obstruction history with the patient for CT scan we have prolonged weights in our waiting over this time labs are unremarkable. CT shows SBO I will place NG and consult surgery. SBO resolved after NG placement previously. I communicated via secure messenging with Dr. Horn from surgery who agreed with the admission. Differential Diagnosis Differential diagnosis: Likely abdominal pain, bowel perforation, constipation and small bowel obstruction Lab Data Result diagrams: 04/20/22 09:59 04/20/22 09:59 Labs: Lab Results 04/20/22 04/20/22 Range/Units 09:59 09:59 WBC 10.2 (4.8-10.8) X10*3/uL RBC 4.42 (4.20-5.50) X10*6/uL Hgb 12.5 (12.0-16.0) g/dl Hct 39.1 (37.0-47.0) % MCV 88.5 (80.0-98.0) fL MCH 28.3 (27.0-33.0) pg MCHC 32.0 (31.0-35.0) g/dl RDW 12.8 (11.0-16.0) % Plt Count 311 (160-400) X10*3/uL MPV 9.0 L (9.4-12.3) fL Immature Gran % (Auto) 0.4 (0.0-0.4) % Neut % (Auto) 82.3 H (45-73) % Lymph % (Auto) 10.9 L (20-40) % [place] % (Auto) 4.9 (2-11) % Eos % (Auto) 1.2 (0-4) % Baso % (Auto) 0.3 (0-2) % Lymph # (Auto) 1.1 L (1.2-4.9) X10*3/uL [place] # (Auto) 0.5 (0.1-1.2) X10*3/uL Eos # (Auto) 0.1 (0.0-0.4) X10*3/uL Baso # (Auto) 0.0 (0.0-0.2) X10*3/uL Abs Immat Gran (auto) 0.04 H (0.00-0.03) X10*3/uL Absolute Neuts (auto) 8.4 H (2.0-8.3) x10*3/uL Absolute Nucleated RBC 0.000 (0.0-0.012) X10*3/uL Nucleated RBC % (auto) 0.0 (0.0-0.2) /100WBC Sodium 143 (135-145) mmol/L Potassium 4.5 (3.3-5.1) mmol/L Chloride 109 H (96-108) mmol/L Carbon Dioxide 28 (22-29) mmol/L Anion Gap 11 L (12-20) BUN 12 (9-16) mg/dL Creatinine 1.19 (0.5-1.4) mg/dL Estim Creat Clear Calc 50.5 Estimated GFR 46 Random Glucose 129 H (60-115) mg/dL Calcium 9.5 (8.4-10.2) mg/dL Total Bilirubin 0.3 (0.0-1.0) mg/dL Direct Bilirubin 0.2 (0.0-0.5) mg/dL AST 17 (5-31) U/L ALT 15 (0-31) U/L Alkaline Phosphatase 100 (39-117) U/L Total Protein 7.5 (6.5-8.0) g/dL Albumin 4.5 (3.5-5.0) g/dL Lipase 8 (8-78) U/L Discharge Plan Discharge Clinical Impression: Small bowel obstruction, Abdominal pain Patient Disposition: Admitted As Inpatient Prescriptions: No Action atorvastatin 40 mg tablet 1 tab PO BEDTIME clonazepam 1 mg tablet 1 tab PO TID PRN (Reason: Anxiety) omeprazole 20 mg capsule,delayed release(DR/EC) 1 cap PO BID albuterol sulfate 90 mcg/actuation HFA aerosol inhaler 2 puff PO Q4-6H PRN (Reason: Wheezing) risperidone 0.5 mg tablet 1 tab PO BID oxycodone 5 mg tablet 1 tab PO Q12H PRN (Reason: pain) escitalopram oxalate 10 mg tablet 1 tab PO QAM oxycodone [OxyContin] 10 mg tablet,oral only,ext.rel.12 hr 1 tab PO Q12H nifedipine 60 mg tablet extended release 24 hr 1 tab PO DAILY quetiapine 400 mg tablet 1 tab PO BEDTIME cholecalciferol (vitamin D3) 25 mcg (1,000 unit) tablet 1 tab PO DAILY naloxone [Narcan] 4 mg/actuation spray,non-aerosol 2 spray intranasal NEEDED PRN (Reason: Opioid Overdose) bupropion HCl 150 mg Tablet Extended Release 24 Hr 150 mg PO QAM
[2022-04-20] MEDS: Haloperidol Lactate 5 MG/ML VIAL IVPUSH (16:59)
[2022-04-20] MEDS: Morphine Sulfate 4 MG/ML CARTRIDGE IVPUSH ×3 (16:59→20:42)
[2022-04-20 17:03] VITALS: BP 134/70; PULSE 73; RESP 18; TEMP 36.7; O2SAT 99
--- NOTE | 2022-04-20 17:06 | PC.NURSE ---
patient a&ox3, iv inserted, labs previously drawn, pt medicated for pain, vss, will continue to monitor
[2022-04-20 18:00] VITALS: BP 149/73; PULSE 71; RESP 18; O2SAT 97
--- NOTE | 2022-04-20 18:42 | PC.NURSE ---
patient a&ox3, vss, pt medicated for pain, warm blanket given, call coleman within reach, will continue to monitor
--- NOTE | 2022-04-20 19:15 | PHA.MEDREC ---
Pharmacy Consult ? Medication Reconciliation Pharmacy has completed the medication reconciliation.
[2022-04-20] MEDS: Lidocaine HCl Viscous 2 % 15 ML SOLUTION MUCOUS MEM (19:20)
--- NOTE | 2022-04-20 19:20 | PC.NURSE ---
provider numbed patients nare with lido/qtip, provider then inserted ng tube and placed on intermittent wall suction and ordered the xray
[2022-04-20 19:35] LABS: COVID-19 Test Negative (Negative); IDNOW Serial# 55D5AD1C
[2022-04-20 20:00] VITALS: BP 149/71; PULSE 72; RESP 18; TEMP 36.7; O2SAT 95
--- NOTE | 2022-04-20 20:46 | PC.NURSE ---
patient a&ox3, vss, pt c/o 8-06/11 pain- medicated for pain per order, ng tube patient/draining, call coleman within reach, will continue to monitor.
--- NOTE | 2022-04-20 20:48 | PC.NURSE ---
while nurse was in the room with patient after medicating for pain, pt states I dont think this medicine is working for me, is there anything stronger will notify provider
[2022-04-20 21:10] VITALS: BP 149/78; PULSE 72; RESP 18; TEMP 36.8; O2SAT 96
[2022-04-20] MEDS: Dextrose 5 % and 0.9 % NaCl 1,000 ML 100 ML IVCONT (22:31)
--- NOTE | 2022-04-20 22:34 | PC.NURSE ---
ivf started per order
[2022-04-20] MEDS: HYDROmorphone HCl 1 MG/ML SYRINGE IVPUSH (22:40)
[2022-04-21 02:14] LABS: Appearance Urine HAZY; Color Urine DK YELLOW; Glucose Urine UA NEG (NEG); Leukocyte Esterase Urine NEG (NEG); Nitrite Urine NEG (NEG); Specific Gravity - Urine >= 1.030 (1.005-1.025); UACC Culture Trigger NO; Urine Blood 3+ (NEG); Urine Ketones NEG (NEG); Urine Protein NEG (NEG-TRACE)
[2022-04-21 02:22] LABS: RBC Urine 30-49 /HPF (0); Squamous Epithelial Cell Urine 3+ /LPF; WBC Urine 0-2 /HPF (0-4)
[2022-04-21 02:23] LABS: Bacteria Urine TRACE /LPF; Mucus Urine 2+ /LPF; Renal Epithelial Cells Urine 1+ /LPF
[2022-04-21 03:59] VITALS: RESP 14
[2022-04-21] MEDS: HYDROmorphone HCl 1 MG/ML SYRINGE IVPUSH ×6 (03:59→22:26)
[2022-04-21 05:15] LABS: Hematocrit 39.4 % (37.0-47.0); Hemoglobin 12.4 g/dl (12.0-16.0); Mean Corpuscular HGB Conc 31.5 g/dl (31.0-35.0); Mean Corpuscular Hemoglobin 27.8 pg (27.0-33.0); Mean Corpuscular Volume 88.3 fL (80.0-98.0); Mean Platelet Volume 9.8 fL (9.4-12.3); Platelet Count 231 X10*3/uL (160-400); Red Blood Count 4.46 X10*6/uL (4.20-5.50); Red Cell Distribution Width 12.6 % (11.0-16.0); White Blood Count 10.2 X10*3/uL (4.8-10.8)
[2022-04-21 05:31] LABS: Anion Gap 13 (12-20); Blood Urea Nitrogen 13 mg/dL (9-16); Calcium 8.7 mg/dL (8.4-10.2); Carbon Dioxide 22 mmol/L (22-29); Chloride 109 mmol/L (96-108); Creatinine Clr Calc Pharmacy 66.7; Estimated Glomerular Filt Rate > 60; Glucose Random 117 mg/dL (60-115); Potassium 3.7 mmol/L (3.3-5.1); Sodium 140 mmol/L (135-145)
[2022-04-21 08:07] VITALS: BP 161/81; PULSE 73; RESP 18; O2SAT 95
[2022-04-21] MEDS: Dextrose 5 % and 0.9 % NaCl 1,000 ML 100 ML IVCONT ×3 (08:27→23:10)
[2022-04-21] MEDS: 0.9 % Sodium Chloride Flush 3 ML SYRINGE IVFLUSH (08:28)
--- NOTE | 2022-04-21 08:31 | PC.NURSE ---
pt alert and oriented, skin appropriate for ethnicity, respirations even and unlabored, pt reports mid abd pain that spreads to left and right lower abd, pain at 10/10, denies nausea. n gtub in place and draining about 250ml of greenish/yellow contance
--- NOTE | 2022-04-21 09:15 | MHC.CM.PN ---
Patient lives alone in an apartment and she uses a walker to assist with mobility. Patient receives [employer] hours/week and hergoal is to return home and resume said services. CM has initiated and will follow for dc planning. IMM addressed with Patient. Patient's Sister/Ashlee @ [phone] IS THE HCP.
--- NOTE | 2022-04-21 10:39 | P.HPGS_ITS ---
History of Present Illness History of Present Illness Date of Service: 04/22/22 Chief complaint: sbo Narrative: Delphine Martínez is a 66 year old female who says she has started to have abdominal pain about 3 days ago. She describes this as diffuse. She had a little bit of nausea and vomiting as well. She has actually was admitted to the hospital last December 2021 because of partial small-bowel obstruction. She has a history of colon resection in the distant past. She had a laparotomy and a colostomy at that time. The colostomy had been eventually reversed. She is uncertain as to the exact details of that procedure. Review of Systems Constitutional: Constitutional: Denies chills and Denies fever(s) Cardiovascular: Cardiovascular: Denies chest pain, Denies dyspnea and Denies dyspnea on exertion Respiratory: Respiratory: Denies cough, Denies dyspnea and Denies dyspnea on exertion Gastrointestinal: Gastrointestinal: Denies hematochezia, Denies change in bowel habits and Reports diarrhea Genitourinary: Genitourinary: Denies hematuria Musculoskeletal: Musculoskeletal: Denies back pain and Denies limited range of motion Neurologic: Denies focal weakness and Denies convulsions Psychiatric: Psychiatric: Denies depression and Denies mood swings PMFSH Past Medical History Medical History Anxiety Asthma Depression Elevated cholesterol GERD (gastroesophageal reflux disease) HTN (hypertension) Hx of renal calculi Hx of small bowel obstruction Family History Family History Father PVD (peripheral vascular disease) Mother Depression Surgical History Surgical History History of Salomon fundoplication Hx of colonoscopy Hx of hysterectomy, total Social History Social History Household Members: None Housing: Apartment Do you presently have visiting nurse or other home services: Yes Alcohol intake: never Patient Tobacco Use Status: Never used Tobacco Use of substances other than those prescribed or required for medical reasons: No Currently Displaying Signs/Symptoms of Drug Intoxication Withdrawal: No Have you been hit, kicked, punched, or otherwise hurt by someone within the past year? If so, by whom?: No Do you feel safe in your current relationship?: No Current Relationship Is there a partner from a previous relationship who is making you feel unsafe now?: No Are you made to feel afraid or neglected: No [employer] Healthcare Practices: [place] Advance Directives: No Advance Directives Information Provided: Yes Do you have thoughts of harming others: None Do you have a plan to hurt others: No Plan Recently lost weight without trying: No Eating poorly because of decreased appetite: No Nutrition Risks: No Nutritional Risk Patient : No : No Poor oral hygiene: No service: No Current occupational status: [employer] Allergies Allergy/AdvReac Type Severity Reaction Status Date / Time No Known Allergies Allergy Verified 10/31/20 12:57 Active Medications: Current Medications Hydromorphone HCl (Hydromorphone Hcl 1 Mg/Ml Syringe) 1 mg IVPUSH Q4H PRN; Protocol PRN Reason: Pain, Severe (Pain Scale 7-10) Last Admin: 04/21/22 08:10 Dose: 1 mg Dextrose/Sodium Chloride (D5ns) 1,000 mls @ 100 mls/hr IVCONT .Q10H [facility] Last Admin: 04/21/22 08:27 Dose: 100 mls/hr Multi-Ingred Medicated Throat [place] (Throat [place], Medicated 20 Ml Bottle) 1 spray MUCOUS MEM Q2H PRN PRN Reason: Sore Throat Last Admin: 04/20/22 19:20 Dose: 1 spray Ondansetron HCl (Ondansetron Hcl 4 Mg/2 Ml Vial) 4 mg IVPUSH Q8H PRN PRN Reason: Nausea and Vomiting Pharmacy Consult (Consult Rx Perform Med Rec) 1 each MISCELLANE ONCE PRN PRN Reason: Consult order Sodium Chloride (0.9 % Sodium Chloride Flush 3 Ml Syringe) 3 ml IVFLUSH QSHIFT [facility] Last Admin: 04/21/22 08:28 Dose: 3 ml Home Medications Medication Instructions Recorded Confirmed Last Taken Type atorvastatin 40 mg tablet 1 tab PO BEDTIME 07/14/20 04/20/22 04/19/22 History clonazepam 1 mg tablet 1 tab PO TID PRN Anxiety 07/14/20 04/20/22 Unknown History escitalopram oxalate 10 mg tablet 1 tab PO DAILY 07/14/20 04/20/22 04/19/22 History omeprazole 20 mg capsule,delayed 1 cap PO BID 07/14/20 04/20/22 04/19/22 History release oxycodone 10 mg tablet,crush 1 tab PO BID 07/14/20 04/20/22 04/20/22 History resistant,extended release 12 hr (OxyContin) oxycodone 5 mg tablet 1 tab PO Q12H PRN pain 07/14/20 04/20/22 04/20/22 History risperidone 0.5 mg tablet 1 tab PO BID 07/14/20 04/20/22 04/19/22 History bupropion HCl 150 mg 24 hr tablet, 150 mg PO DAILY 12/31/21 04/20/22 04/19/22 History extended release cholecalciferol (vitamin D3) 25 1 tab PO DAILY 12/31/21 04/20/22 04/19/22 History mcg (1,000 unit) tablet nifedipine 60 mg tablet,extended 1 tab PO DAILY 12/31/21 04/20/22 04/19/22 History release 24 hr quetiapine 400 mg tablet 1 tab PO BEDTIME 12/31/21 04/20/22 04/19/22 History Physical Exam Vital Signs: Vital Signs: Last Vital Signs Temp 98.2 F 04/20/22 21:10 Pulse 73 04/21/22 08:07 Resp 18 04/21/22 08:07 BP 161/81 H 04/21/22 08:07 Pulse Ox 95 04/21/22 08:07 O2 Del Method 04/21/22 08:07 BMI result Body Mass Index 40.8 Const: Other: Appears obese General: comfortable and no acute distress Orientation/consciousness: patient oriented x3 Neck: Neck: Yes no lymphadenopathy Resp: Auscultation: clear to auscultation bilaterally Cardio: Rhythm: regular rhythm GI: Other: Soft with mild diffuse tenderness, no guarding rebound Palpation (GI): Soft to palpation, nontender and no guarding Neuro: General: patient oriented x3 Results Results Labs: Short CBC 04/21/22 Range/Units 05:08 WBC 10.2 (4.8-10.8) X10*3/uL Hgb 12.4 (12.0-16.0) g/dl Hct 39.4 (37.0-47.0) % Plt Count 231 D (160-400) X10*3/uL BMP 04/21/22 05:08 Sodium 140 Potassium 3.7 Chloride 109 H Carbon Dioxide 22 BUN 13 Creatinine 0.90 Calcium 8.7 D Urine 04/21/22 Range/Units 01:55 Urine Color DK YELLOW Urine Appearance HAZY Urine pH 6.0 (5.0-8.0) Ur Specific [place] >= 1.030 H (1.005-1.025) Urine Protein NEG (NEG-TRACE) MG/DL Urine Glucose (UA) NEG (NEG) MG/DL Additional studies: Laboratory Results WBC 10.2 X10*3/uL (4.8-10.8) 04/21/22 05:08 RBC 4.46 X10*6/uL (4.20-5.50) 04/21/22 05:08 Hgb 12.4 g/dl (12.0-16.0) 04/21/22 05:08 Hct 39.4 % (37.0-47.0) 04/21/22 05:08 MCV 88.3 fL (80.0-98.0) 04/21/22 05:08 MCH 27.8 pg (27.0-33.0) 04/21/22 05:08 MCHC 31.5 g/dl (31.0-35.0) 04/21/22 05:08 RDW 12.6 % (11.0-16.0) 04/21/22 05:08 Plt Count 231 X10*3/uL (160-400) D 04/21/22 05:08 MPV 9.8 fL (9.4-12.3) 04/21/22 05:08 Immature Gran % (Auto) 0.4 % (0.0-0.4) 04/20/22 09:59 Neut % (Auto) 82.3 % (45-73) H 04/20/22 09:59 Lymph % (Auto) 10.9 % (20-40) L 04/20/22 09:59 [place] % (Auto) 4.9 % (2-11) 04/20/22 09:59 Eos % (Auto) 1.2 % (0-4) 04/20/22 09:59 Baso % (Auto) 0.3 % (0-2) 04/20/22 09:59 Lymph # (Auto) 1.1 X10*3/uL (1.2-4.9) L 04/20/22 09:59 [place] # (Auto) 0.5 X10*3/uL (0.1-1.2) 04/20/22 09:59 Eos # (Auto) 0.1 X10*3/uL (0.0-0.4) 04/20/22 09:59 Baso # (Auto) 0.0 X10*3/uL (0.0-0.2) 04/20/22 09:59 Abs Immat Gran (auto) 0.04 X10*3/uL (0.00-0.03) H 04/20/22 09:59 Absolute Neuts (auto) 8.4 x10*3/uL (2.0-8.3) H 04/20/22 09:59 Absolute Nucleated RBC 0.000 X10*3/uL (0.0-0.012) 04/21/22 05:08 Nucleated RBC % (auto) 0.0 /100WBC (0.0-0.2) 04/21/22 05:08 Sodium 140 mmol/L (135-145) 04/21/22 05:08 Potassium 3.7 mmol/L (3.3-5.1) 04/21/22 05:08 Chloride 109 mmol/L (96-108) H 04/21/22 05:08 Carbon Dioxide 22 mmol/L (22-29) 04/21/22 05:08 Anion Gap 13 (12-20) 04/21/22 05:08 BUN 13 mg/dL (9-16) 04/21/22 05:08 Creatinine 0.90 mg/dL (0.5-1.4) 04/21/22 05:08 Estim Creat Clear Calc 66.7 04/21/22 05:08 Estimated GFR > 60 04/21/22 05:08 Random Glucose 117 mg/dL (60-115) H 04/21/22 05:08 Calcium 8.7 mg/dL (8.4-10.2) D 04/21/22 05:08 Total Bilirubin 0.3 mg/dL (0.0-1.0) 04/20/22 09:59 Direct Bilirubin 0.2 mg/dL (0.0-0.5) 04/20/22 09:59 AST 17 U/L (5-31) 04/20/22 09:59 ALT 15 U/L (0-31) 04/20/22 09:59 Alkaline Phosphatase 100 U/L (39-117) 04/20/22 09:59 Total Protein 7.5 g/dL (6.5-8.0) 04/20/22 09:59 Albumin 4.5 g/dL (3.5-5.0) 04/20/22 09:59 Lipase 8 U/L (8-78) 04/20/22 09:59 Urine Color DK YELLOW 04/21/22 01:55 Urine Appearance HAZY 04/21/22 01:55 Urine pH 6.0 (5.0-8.0) 04/21/22 01:55 Ur Specific [place] >= 1.030 (1.005-1.025) H 04/21/22 01:55 Urine Protein NEG MG/DL (NEG-TRACE) 04/21/22 01:55 Urine Glucose (UA) NEG MG/DL (NEG) 04/21/22 01:55 Urine Ketones NEG MG/DL (NEG) 04/21/22 01:55 Urine Blood 3+ (NEG) H 04/21/22 01:55 Urine Nitrite NEG (NEG) 04/21/22 01:55 Ur Leukocyte Esterase NEG (NEG) 04/21/22 01:55 Urine RBC 30-49 /HPF (0) H 04/21/22 01:55 Urine WBC 0-2 /HPF (0-4) 04/21/22 01:55 Ur Squamous Epith Cells 3+ /LPF 04/21/22 01:55 Ur Renal Epithelial Cell 1+ /LPF 04/21/22 01:55 Urine Bacteria TRACE /LPF 04/21/22 01:55 Urine Mucus 2+ /LPF 04/21/22 01:55 COVID-19 ([facility]) Negative (Negative) 04/20/22 19:12 COVID-19 Clin Com See Note 04/20/22 19:12 Impressions Abdomen/Pelvis CT 04/20/22 17:30 IMPRESSION: 1. Early small bowel obstruction. Dilated fluid-filled small bowel loops with transition in the lower abdomen, fever adhesive band. Small quantities of free fluid and mesenteric fat stranding suggesting an acute process. This is a different point of obstruction then noted on the prior CT of 12/31/2021. 2. Large amount of stool in the cecum. No evidence of large bowel obstruction or colitis. 3. Patient: Mandeep anastomosis at the rectosigmoid junction. 4. Cholecystectomy. Stable postoperative prominence of the bile ducts. Fleischner guidelines were followed. Chest X-Ray 04/20/22 19:32 IMPRESSION: NG tube is in the stomach Assessment and Plan (1) Small bowel obstruction: Status: Acute She was admitted because of abdominal pain with nausea and vomiting. Her CAT scan was suggestive of partial small-bowel obstruction with note of some mild distension of proximal bowel loops with air-fluid levels. The point of transition seems to be different from the previous on her last admission. This is suggestive of multiple adhesions causing her partial small-bowel obstruction. She has an NG tube in place. Her abdominal exam is otherwise benign. We willl follow her clinically. She will be kept NPO for bowel rest at this time. She understands the plan well. Quality Stroke Does the patient have a stroke diagnosis?: No VTE Prior VTE?: No VTE Risk Level:: Surgical - low VTE Device Contraindication: N/A - Device Ordered VTE Drug Contraindication: Treatment Not Indicated Procedures Date of Service Date of Service: 04/22/22
--- NOTE | 2022-04-21 11:09 | PC.NURSE ---
called med/surg for report awating a call back
--- NOTE | 2022-04-21 11:43 | PC.NURSE ---
report given to clarice germain
[2022-04-21 15:18] VITALS: BP 140/70; PULSE 64; RESP 20; TEMP 36.9; O2SAT 98
--- NOTE | 2022-04-21 16:59 | P.CONIM_ITS ---
History of Present Illness Data of Consult Service Date: 04/21/22 Requesting physician: Erick Cody Primary Care Provider: Bela Vasquez MD HPI Reason for consult: HTN this is a 66-year-old female with history of hypertension who presents to the emergency department with abdominal pain which started about 5 days ago on Monday. She denies associated nausea or vomiting. She was having diarrhea but has had no bowel movement since Monday. CT scan of the abdomen showing early small-bowel obstruction with dilated fluid-filled small bowel loops with transition in lower abdomen. She was admitted to the surgical service an NG tube was placed. The hospitalists were asked to see her in consultation for management of hypertension. She reports persistent abdominal pain, pain retu rning prior to next dose of pain medication being due. Requesting to increased frequency of dosing. Requesting to have her baseline medications resumed. Concerned about sleeping this evening without them. Review of Systems Review of Systems: Yes all other systems are reviewed and are negative Constitutional: Constitutional: Denies chills and Denies fever(s) Cardiovascular: Cardiovascular: Denies chest pain and Denies palpitations Respiratory: Respiratory: Denies cough Gastrointestinal: Gastrointestinal: Reports abdominal pain, Denies diarrhea, Denies nausea and Denies vomiting Endocrine: Endocrine: Denies palpitations PMFSH Medical History Anxiety Asthma Depression Elevated cholesterol GERD (gastroesophageal reflux disease) HTN (hypertension) Hx of renal calculi Hx of small bowel obstruction Family History Father PVD (peripheral vascular disease) Mother Depression Surgical History History of Salomon fundoplication Hx of colonoscopy Hx of hysterectomy, total Social History Household Members: None Housing: Apartment Do you presently have visiting nurse or other home services: Yes Alcohol intake: never Patient Tobacco Use Status: Never used Tobacco Use of substances other than those prescribed or required for medical reasons: No Have you been hit, kicked, punched, or otherwise hurt by someone within the past year? If so, by whom?: No Do you feel safe in your current relationship?: No Current Relationship Is there a partner from a previous relationship who is making you feel unsafe now?: No Are you made to feel afraid or neglected: No [employer] Healthcare Practices: [place] Advance Directives: No Advance Directives Information Provided: Yes Do you have thoughts of harming others: None Do you have a plan to hurt others: No Plan Recently lost weight without trying: No Eating poorly because of decreased appetite: No Nutrition Risks: No Nutritional Risk Patient : No : No Poor oral hygiene: No service: No Current occupational status: disabled Meds Allergies Allergy/AdvReac Type Severity Reaction Status Date / Time No Known Allergies Allergy Verified 10/31/20 12:57 Active Medications: Current Medications Hydromorphone HCl (Hydromorphone Hcl 1 Mg/Ml Syringe) 1 mg IVPUSH Q4H PRN; Protocol PRN Reason: Pain, Severe (Pain Scale 7-10) Last Admin: 04/21/22 16:03 Dose: 1 mg Hydromorphone HCl (Hydromorphone Hcl 1 Mg/Ml Syringe) 1 mg IVPUSH Q4H PRN; Protocol PRN Reason: Pain, Severe (Pain Scale 7-10) Dextrose/Sodium Chloride (D5ns) 1,000 mls @ 100 mls/hr IVCONT .Q10H [facility] Last Admin: 04/21/22 15:59 Dose: 100 mls/hr Multi-Ingred Medicated Throat [place] (Throat [place], Medicated 20 Ml Bottle) 1 spray MUCOUS MEM Q2H PRN PRN Reason: Sore Throat Last Admin: 04/20/22 19:20 Dose: 1 spray Nifedipine (Nifedipine Er 60 Mg Tab.Er.24) 60 mg PO DAILY [facility]; Protocol Ondansetron HCl (Ondansetron Hcl 4 Mg/2 Ml Vial) 4 mg IVPUSH Q8H PRN PRN Reason: Nausea and Vomiting Pharmacy Consult (Consult Rx Perform Med Rec) 1 each MISCELLANE ONCE PRN PRN Reason: Consult order Sodium Chloride (0.9 % Sodium Chloride Flush 3 Ml Syringe) 3 ml IVFLUSH QSHIFT [facility] Last Admin: 04/21/22 15:35 Dose: Not Given Home Medications Medication Instructions Recorded Confirmed Last Taken Type atorvastatin 40 mg tablet 1 tab PO BEDTIME 07/14/20 04/20/22 04/19/22 History clonazepam 1 mg tablet 1 tab PO TID PRN Anxiety 07/14/20 04/20/22 Unknown History escitalopram oxalate 10 mg tablet 1 tab PO DAILY 07/14/20 04/20/22 04/19/22 History omeprazole 20 mg capsule,delayed 1 cap PO BID 07/14/20 04/20/22 04/19/22 History release oxycodone 10 mg tablet,crush 1 tab PO BID 07/14/20 04/20/22 04/20/22 History resistant,extended release 12 hr (OxyContin) oxycodone 5 mg tablet 1 tab PO Q12H PRN pain 07/14/20 04/20/22 04/20/22 History risperidone 0.5 mg tablet 1 tab PO BID 07/14/20 04/20/22 04/19/22 History bupropion HCl 150 mg 24 hr tablet, 150 mg PO DAILY 12/31/21 04/20/22 04/19/22 History extended release cholecalciferol (vitamin D3) 25 1 tab PO DAILY 12/31/21 04/20/22 04/19/22 History mcg (1,000 unit) tablet nifedipine 60 mg tablet,extended 1 tab PO DAILY 12/31/21 04/20/22 04/19/22 History release 24 hr quetiapine 400 mg tablet 1 tab PO BEDTIME 12/31/21 04/20/22 04/19/22 History Physical Exam Vital Signs and Narrative: Vital Signs: Last Vital Signs Temp 98.5 F 04/21/22 15:18 Pulse 64 04/21/22 15:18 Resp 20 04/21/22 15:18 BP 140/70 H 04/21/22 15:18 Pulse Ox 98 04/21/22 15:18 O2 Del Method 04/21/22 15:18 BMI result Body Mass Index 40.8 Const: General: no acute distress, alert and awake Nutritional Appearance: obese Orientation/consciousness: patient oriented x3 HEENT: Other: NGT present - no output at this time Resp: Effort & Inspection: normal respiratory effort and able to speak in complete sentences Auscultation: clear to auscultation bilaterally Cardio: Rate: regular rate Heart sounds: S1 normal heart sound present and S2 normal heart sound present GI: Palpation (GI): Soft to palpation and Tenderness to palpation present (GI) Neuro: General: patient oriented x3 and CN's II-XI intact bilaterally Extrem: General: Yes no pedal edema Results Labs CBC and Chem 7: 04/21/22 05:08 04/21/22 05:08 Labs: Laboratory Results - last 24 hr 04/20/22 04/21/22 04/21/22 19:12 01:55 05:08 MCV 88.3 MCH 27.8 MCHC 31.5 RDW 12.6 Plt Count 231 D MPV 9.8 Absolute Nucleated RBC 0.000 Nucleated RBC % (auto) 0.0 Anion Gap Estim Creat Clear Calc Estimated GFR Random Glucose Calcium Urine Color DK YELLOW Urine Appearance HAZY Urine pH 6.0 Ur Specific [place] >= 1.030 H Urine Protein NEG Urine Glucose (UA) NEG Urine Ketones NEG Urine Blood 3+ H Urine Nitrite NEG Ur Leukocyte Esterase NEG Urine RBC 30-49 H Urine WBC 0-2 Ur Squamous Epith Cells 3+ Ur Renal Epithelial Cell 1+ Urine Bacteria TRACE Urine Mucus 2+ COVID-19 ([facility]) Negative COVID-19 Clin Com See Note 04/21/22 05:08 MCV MCH MCHC RDW Plt Count MPV Absolute Nucleated RBC Nucleated RBC % (auto) Anion Gap 13 Estim Creat Clear Calc 66.7 Estimated GFR > 60 Random Glucose 117 H Calcium 8.7 D Urine Color Urine Appearance Urine pH Ur Specific [place] Urine Protein Urine Glucose (UA) Urine Ketones Urine Blood Urine Nitrite Ur Leukocyte Esterase Urine RBC Urine WBC Ur Squamous Epith Cells Ur Renal Epithelial Cell Urine Bacteria Urine Mucus COVID-19 ([facility]) COVID-19 Clin Com Imaging Radiologist's Impressions: Impressions Abdomen/Pelvis CT 04/20/22 17:30 IMPRESSION: 1. Early small bowel obstruction. Dilated fluid-filled small bowel loops with transition in the lower abdomen, fever adhesive band. Small quantities of free fluid and mesenteric fat stranding suggesting an acute process. This is a different point of obstruction then noted on the prior CT of 12/31/2021. 2. Large amount of stool in the cecum. No evidence of large bowel obstruction or colitis. 3. Patient: Mandeep anastomosis at the rectosigmoid junction. 4. Cholecystectomy. Stable postoperative prominence of the bile ducts. Fleischner guidelines were followed. Chest X-Ray 04/20/22 19:32 IMPRESSION: NG tube is in the stomach Assessment and Plan (1) Small bowel obstruction: Status: Acute (2) HTN (hypertension): Status: Acute Plan this is a 66F with history of hypertension, mood disorder who presented with SBO SBO s/p NGT placement still reporting abdominal pain management per surgery HTN resume nifedipine prn hydralazine for SBP >180 mood disorder requesting to have seroquel, klonopin, risperdal remainder of meds on hold for SBO (bupropion, escitalopram on hold) mild intermittent asthma bronchodilators prn HLD statin on hold dvt ppx per primary team attending - dr. lucas thank you for allowing us to participate in the care of this patient. We will follow along with you
[2022-04-21 19:36] VITALS: BP 173/80; PULSE 67; RESP 20; TEMP 36.8; O2SAT 97
[2022-04-21] MEDS: risperiDONE 0.5 MG TABLET PO (19:36)
[2022-04-21] MEDS: QUEtiapine Fumarate 400 MG TABLET PO (19:36)
[2022-04-21] MEDS: clonazePAM 1 MG TABLET PO (19:44)
[2022-04-21 23:55] VITALS: BP 146/78; PULSE 69; RESP 18; TEMP 36.6; O2SAT 95
[2022-04-22] MEDS: HYDROmorphone HCl 1 MG/ML SYRINGE IVPUSH ×6 (03:30→22:07)
[2022-04-22 03:53] VITALS: BP 190/86; PULSE 86; RESP 18; TEMP 36.2; O2SAT 96
[2022-04-22 07:17] LABS: Hematocrit 35.6 % (37.0-47.0); Hemoglobin 11.2 g/dl (12.0-16.0); Mean Corpuscular HGB Conc 31.5 g/dl (31.0-35.0); Mean Corpuscular Hemoglobin 28.2 pg (27.0-33.0); Mean Corpuscular Volume 89.7 fL (80.0-98.0); Mean Platelet Volume 9.6 fL (9.4-12.3); Platelet Count 285 X10*3/uL (160-400); Red Blood Count 3.97 X10*6/uL (4.20-5.50); Red Cell Distribution Width 12.6 % (11.0-16.0)
[2022-04-22 07:41] LABS: Anion Gap 10 (12-20); Blood Urea Nitrogen 9 mg/dL (9-16); Carbon Dioxide 28 mmol/L (22-29); Chloride 109 mmol/L (96-108); Creatinine Clr Calc Pharmacy 71.5; Estimated Glomerular Filt Rate > 60; Glucose Random 130 mg/dL (60-115); Potassium 4.4 mmol/L (3.3-5.1); Sodium 143 mmol/L (135-145)
[2022-04-22 07:45] VITALS: BP 157/72; PULSE 86; RESP 17; TEMP 36.6; O2SAT 97
[2022-04-22] MEDS: risperiDONE 0.5 MG TABLET PO ×2 (09:15→22:07)
[2022-04-22] MEDS: NIFEdipine ER 60 MG TAB.ER.24 PO (09:15)
[2022-04-22] MEDS: 0.9 % Sodium Chloride Flush 3 ML SYRINGE IVFLUSH ×3 (09:15→19:20)
[2022-04-22] MEDS: clonazePAM 1 MG TABLET PO ×2 (09:22→22:07)
--- NOTE | 2022-04-22 09:45 | PM.PNGS ---
Subjective Subjective Date of Service: 04/22/22 Interval history: she says she still has pain although slightly better passing flatus NG tube actually not on suction when checked Physical Exam Vital Signs: Vital Signs: Last Vital Signs Temp 97.8 F 04/22/22 07:45 Pulse 86 04/22/22 07:45 Resp 17 04/22/22 07:45 BP 157/72 H 04/22/22 07:45 Pulse Ox 97 04/22/22 07:45 O2 Del Method 04/22/22 07:45 BMI result Body Mass Index 40.8 Const: General: comfortable and no acute distress Resp: Effort & Inspection: normal respiratory effort Cardio: Rate: regular rate GI: Other: mild diffuse tenderness Palpation (GI): Soft to palpation, not firm and no guarding Objective Data Active Medications Albuterol Sulfate (Albuterol Sulfate (0.042%) 1.25 Mg/3 Ml Vial.Neb) 1.25 mg INHALE RQ6H PRN PRN Reason: Shortness of Breath Clonazepam (Clonazepam 1 Mg Tablet) 1 mg PO TID PRN PRN Reason: Anxiety Last Admin: 04/22/22 09:22 Dose: 1 mg Documented By: TRIXIE Hydralazine HCl (Hydralazine Hcl 20 Mg/Ml Vial) 5 mg IVPUSH Q6H PRN; Protocol PRN Reason: SBP >180 Hydromorphone HCl (Hydromorphone Hcl 1 Mg/Ml Syringe) 1 mg IVPUSH Q3H PRN; Protocol PRN Reason: Pain, Severe (Pain Scale 7-10) Last Admin: 04/22/22 09:15 Dose: 1 mg Documented By: TRIIXE Dextrose/Sodium Chloride (D5ns) 1,000 mls @ 100 mls/hr IVCONT .Q10H JORDAN Last Infusion: 04/22/22 09:15 Dose: 0 mls/hr Documented By: TRIXIE Multi-Ingred Medicated Throat [place] (Throat [place], Medicated 20 Ml Bottle) 1 spray MUCOUS MEM Q2H PRN PRN Reason: Sore Throat Last Admin: 04/20/22 19:20 Dose: 1 spray Documented By: BILLY Nifedipine (Nifedipine Er 60 Mg Tab.Er.24) 60 mg PO DAILY JORDAN; Protocol Last Admin: 04/22/22 09:15 Dose: 60 mg Documented By: TRIXIE Ondansetron HCl (Ondansetron Hcl 4 Mg/2 Ml Vial) 4 mg IVPUSH Q8H PRN PRN Reason: Nausea and Vomiting Pharmacy Consult (Consult Rx Perform Med Rec) 1 each MISCELLANE ONCE PRN PRN Reason: Consult order Quetiapine Fumarate (Quetiapine Fumarate 400 Mg Tablet) 400 mg PO BEDTIME [facility] Last Admin: 04/21/22 19:36 Dose: 400 mg Documented By: KATHRYN Risperidone (Risperidone 0.5 Mg Tablet) 0.5 mg PO BID [facility] Last Admin: 04/22/22 09:15 Dose: 0.5 mg Documented By: TRIXIE Sodium Chloride (0.9 % Sodium Chloride Flush 3 Ml Syringe) 3 ml IVFLUSH QSHIFT [facility] Last Admin: 04/22/22 09:15 Dose: 3 ml Documented By: TRIXIE Labs CBC & Chem 7: 04/22/22 05:48 04/22/22 05:48 Labs: Laboratory Results - last 24 hr 04/22/22 04/22/22 05:48 05:48 MCV 89.7 MCH 28.2 MCHC 31.5 RDW 12.6 Plt Count 285 MPV 9.6 Absolute Nucleated RBC 0.000 Nucleated RBC % (auto) 0.0 Anion Gap 10 L Estim Creat Clear Calc 71.5 Estimated GFR > 60 Random Glucose 130 H Calcium 9.0 Procedures Date of Service Date of Service: 04/22/22 Progress Note: A&P Assessment and plan (1) Small bowel obstruction: Status: Acute Assessment and Plan: still with some tenderness although slightly better than yesterday review of her CT scan shows some pending as well consistent with some inflammatory process clinically looks well exam remains benign labs okay encouraged to get out of bed NG tube to low wall suction - re-evaluate later for possible removal\ Time Spent With Patient Time: Total time spent is greater than 50% in coordination of care (as documented) at patient's floor/unit and/or counseling patient: Quality Stroke Does the patient have a stroke diagnosis?: No VTE Prior VTE?: No VTE Risk Level:: Surgical - low VTE Device Contraindication: N/A - Device Ordered VTE Drug Contraindication: Treatment Not Indicated
[2022-04-22 11:28] VITALS: BP 158/68; PULSE 75; RESP 17; TEMP 36.4; O2SAT 95
--- NOTE | 2022-04-22 11:35 | P.PNIM_ITS ---
Subjective Subjective Date of Service: 04/22/22 Interval History: Seen and examined this morning Follow-up consult for hypertension Blood pressure elevated overnight, improved this morning Still reporting abdominal pain but improved somewhat compared to yesterday Review of Systems Review of Systems: Yes all other systems are reviewed and are negative Constitutional Constitutional: Denies chills and Denies fever(s) Cardiovascular Cardiovascular: Denies chest pain and Denies palpitations Gastrointestinal Gastrointestinal: Reports abdominal pain, Denies diarrhea, Reports nausea and Denies vomiting Endocrine Endocrine: Denies palpitations Physical Exam Vital Signs: Vital Signs: Last Vital Signs Temp 97.5 F 04/22/22 11:28 Pulse 75 04/22/22 11:28 Resp 17 04/22/22 11:28 BP 158/68 H 04/22/22 11:28 Pulse Ox 95 04/22/22 11:28 O2 Del Method 04/22/22 11:28 BMI result Body Mass Index 40.8 Const: General: no acute distress, alert and awake Nutritional Appearance: obese Orientation/consciousness: patient oriented x3 HEENT: Other: NGT present - no output at this time Resp: Effort & Inspection: normal respiratory effort and able to speak in complete sentences Auscultation: clear to auscultation bilaterally Cardio: Rate: regular rate Heart sounds: S1 normal heart sound present and S2 normal heart sound present GI: Palpation (GI): Soft to palpation and Tenderness to palpation present (GI) Neuro: General: patient oriented x3 and CN's II-XI intact bilaterally Extrem: General: Yes no pedal edema Objective Data Active Medications Albuterol Sulfate (Albuterol Sulfate (0.042%) 1.25 Mg/3 Ml Vial.Neb) 1.25 mg INHALE RQ6H PRN PRN Reason: Shortness of Breath Clonazepam (Clonazepam 1 Mg Tablet) 1 mg PO TID PRN PRN Reason: Anxiety Last Admin: 04/22/22 09:22 Dose: 1 mg Documented By: TRIXIE Hydralazine HCl (Hydralazine Hcl 20 Mg/Ml Vial) 5 mg IVPUSH Q6H PRN; Protocol PRN Reason: SBP >180 Hydromorphone HCl (Hydromorphone Hcl 1 Mg/Ml Syringe) 1 mg IVPUSH Q3H PRN; Protocol PRN Reason: Pain, Severe (Pain Scale 7-10) Last Admin: 04/22/22 09:15 Dose: 1 mg Documented By: TRIXIE Dextrose/Sodium Chloride (D5ns) 1,000 mls @ 100 mls/hr IVCONT .Q10H JORDAN Last Infusion: 04/22/22 09:15 Dose: 0 mls/hr Documented By: TRIXIE Multi-Ingred Medicated Throat [place] (Throat [place], Medicated 20 Ml Bottle) 1 spray MUCOUS MEM Q2H PRN PRN Reason: Sore Throat Last Admin: 04/20/22 19:20 Dose: 1 spray Documented By: BILLY Nifedipine (Nifedipine Er 60 Mg Tab.Er.24) 60 mg PO DAILY [facility]; Protocol Last Admin: 04/22/22 09:15 Dose: 60 mg Documented By: TRIXIE Ondansetron HCl (Ondansetron Hcl 4 Mg/2 Ml Vial) 4 mg IVPUSH Q8H PRN PRN Reason: Nausea and Vomiting Pharmacy Consult (Consult Rx Perform Med Rec) 1 each MISCELLANE ONCE PRN PRN Reason: Consult order Quetiapine Fumarate (Quetiapine Fumarate 400 Mg Tablet) 400 mg PO BEDTIME [facility] Last Admin: 04/21/22 19:36 Dose: 400 mg Documented By: KATHRYN Risperidone (Risperidone 0.5 Mg Tablet) 0.5 mg PO BID [facility] Last Admin: 04/22/22 09:15 Dose: 0.5 mg Documented By: TRIXIE Sodium Chloride (0.9 % Sodium Chloride Flush 3 Ml Syringe) 3 ml IVFLUSH QSHIFT [facility] Last Admin: 04/22/22 09:15 Dose: 3 ml Documented By: TRIXIE Labs CBC & Chem 7: 04/22/22 05:48 04/22/22 05:48 Labs: Laboratory Results - last 24 hr 04/22/22 04/22/22 05:48 05:48 MCV 89.7 MCH 28.2 MCHC 31.5 RDW 12.6 Plt Count 285 MPV 9.6 Absolute Nucleated RBC 0.000 Nucleated RBC % (auto) 0.0 Anion Gap 10 L Estim Creat Clear Calc 71.5 Estimated GFR > 60 Random Glucose 130 H Calcium 9.0 Assessment and Plan (1) Small bowel obstruction: Status: Acute (2) HTN (hypertension): Status: Acute Plan this is a 66F with history of hypertension, mood disorder who presented with SBO SBO s/p NGT placement still reporting abdominal pain management per surgery HTN PPI overnight, improved this morning continue nifedipine prn hydralazine for SBP >180 mood disorder requesting to have seroquel, klonopin, risperdal remainder of meds on hold for SBO (bupropion, escitalopram on hold) mild intermittent asthma bronchodilators prn HLD statin on hold Morbid obesity BMI 40.8 dvt ppx per primary team attending - dr. lucas thank you for allowing us to participate in the care of this patient. We will follow along with you Quality Stroke Does the patient have a stroke diagnosis?: No VTE Prior VTE?: No VTE Risk Level:: Surgical - low VTE Device Contraindication: N/A - Device Ordered VTE Drug Contraindication: Treatment Not Indicated
[2022-04-22] MEDS: Dextrose 5 % and 0.9 % NaCl 1,000 ML 100 ML IVCONT (14:17)
[2022-04-22 15:08] VITALS: BP 160/77; PULSE 96; RESP 18; TEMP 36.8; O2SAT 97
[2022-04-22 19:43] VITALS: BP 140/70; PULSE 74; RESP 18; TEMP 36.8; O2SAT 96
[2022-04-22] MEDS: QUEtiapine Fumarate 400 MG TABLET PO (22:07)
[2022-04-23] VITALS (7 sets, daily range): BP systolic 103–161; BP diastolic 56–72; PULSE 65–86; RESP 14–18; TEMP 36.3–36.8; O2SAT 94–99
[2022-04-23] MEDS: Dextrose 5 % and 0.9 % NaCl 1,000 ML 100 ML IVCONT (01:52)
[2022-04-23] MEDS: HYDROmorphone HCl 1 MG/ML SYRINGE IVPUSH ×6 (04:58→21:33)
[2022-04-23] MEDS: Acetaminophen 325 MG TABLET 650 MG PO (05:54)
[2022-04-23] MEDS: risperiDONE 0.5 MG TABLET PO ×2 (08:08→21:34)
[2022-04-23] MEDS: clonazePAM 1 MG TABLET PO ×3 (08:08→21:34)
[2022-04-23] MEDS: 0.9 % Sodium Chloride Flush 3 ML SYRINGE IVFLUSH ×2 (08:09→21:34)
[2022-04-23] MEDS: NIFEdipine ER 60 MG TAB.ER.24 PO (08:09)
--- NOTE | 2022-04-23 10:37 | HO.PM.IMPN ---
Subjective Subjective Date of Service: 04/23/22 Review of Systems Follow up consult for SBO still with pain to her abd constipation Physical Exam Vital Signs: Vital Signs: Last Vital Signs Temp 98.3 F 04/23/22 07:59 Pulse 86 04/23/22 07:59 Resp 14 04/23/22 07:59 BP 141/69 H 04/23/22 07:59 Pulse Ox 95 04/23/22 07:59 O2 Del Method 04/23/22 07:59 BMI result Body Mass Index 40.8 Appearing in no acute distress lung sounds are clear to auscultation heart regular rate rhythm, clear S1, S2 positive bowel sounds, abdomen is soft, nontender neuro patient is alert x3, no focal deficits Objective Data Active Medications Albuterol Sulfate (Albuterol Sulfate (0.042%) 1.25 Mg/3 Ml Vial.Neb) 1.25 mg INHALE RQ6H PRN PRN Reason: Shortness of Breath Clonazepam (Clonazepam 1 Mg Tablet) 1 mg PO TID PRN PRN Reason: Anxiety Last Admin: 04/23/22 08:08 Dose: 1 mg Documented By: BLANCA Hydralazine HCl (Hydralazine Hcl 20 Mg/Ml Vial) 5 mg IVPUSH Q6H PRN; Protocol PRN Reason: SBP >180 Hydromorphone HCl (Hydromorphone Hcl 1 Mg/Ml Syringe) 1 mg IVPUSH Q3H PRN; Protocol PRN Reason: Pain, Severe (Pain Scale 7-10) Last Admin: 04/23/22 08:40 Dose: 1 mg Documented By: BLANCA Multi-Ingred Medicated Throat [place] (Throat [place], Medicated 20 Ml Bottle) 1 spray MUCOUS MEM Q2H PRN PRN Reason: Sore Throat Last Admin: 04/20/22 19:20 Dose: 1 spray Documented By: BILLY Nifedipine (Nifedipine Er 60 Mg Tab.Er.24) 60 mg PO DAILY [facility]; Protocol Last Admin: 04/23/22 08:09 Dose: 60 mg Documented By: BLANCA Ondansetron HCl (Ondansetron Hcl 4 Mg/2 Ml Vial) 4 mg IVPUSH Q8H PRN PRN Reason: Nausea and Vomiting Pharmacy Consult (Consult Rx Perform Med Rec) 1 each MISCELLANE ONCE PRN PRN Reason: Consult order Quetiapine Fumarate (Quetiapine Fumarate 400 Mg Tablet) 400 mg PO BEDTIME [facility] Last Admin: 04/22/22 22:07 Dose: 400 mg Documented By: EMILY Risperidone (Risperidone 0.5 Mg Tablet) 0.5 mg PO BID [facility] Last Admin: 04/23/22 08:08 Dose: 0.5 mg Documented By: BLANCA Sodium Chloride (0.9 % Sodium Chloride Flush 3 Ml Syringe) 3 ml IVFLUSH QSHIFT [facility] Last Admin: 04/23/22 08:09 Dose: 3 ml Documented By: BLANCA Labs CBC & Chem 7: 04/22/22 05:48 04/22/22 05:48 Assessment and Plan (1) Small bowel obstruction: Status: Acute (2) HTN (hypertension): Status: Acute Plan 66F with history of hypertension, mood disorder who presented with SBO SBO s/p NGT placement, removed yesterday still reporting abdominal pain management per surgery remains NPO due to abd pain HTN PPI overnight, improved this morning continue nifedipine prn hydralazine for SBP >180 mood disorder requesting to have seroquel, klonopin, risperdal remainder of meds on hold for SBO (bupropion, escitalopram on hold) mild intermittent asthma bronchodilators prn HLD statin on hold Morbid obesity BMI 40.8 dvt ppx per primary team attending - dr. Leigh thank you for allowing us to participate in the care of this patient. We will follow along with you Quality Stroke Does the patient have a stroke diagnosis?: No VTE Prior VTE?: No VTE Risk Level:: Surgical - low VTE Device Contraindication: N/A - Device Ordered VTE Drug Contraindication: Treatment Not Indicated
--- NOTE | 2022-04-23 10:38 | PM.PNGS ---
Subjective Subjective Date of Service: 04/23/22 Interval history: The patient is seen in coverage for Dr. Cody The patient continues to endorse abdominal pain. She has had some flatus but has not had a bowel movement. She denies chest pain, difficulty breathing, shortness of breath. She is interested in food and liquids, however notes that her pain is the same. Physical Exam Vital Signs: Vital Signs: Last Vital Signs Temp 98.3 F 04/23/22 07:59 Pulse 86 04/23/22 07:59 Resp 14 04/23/22 07:59 BP 141/69 H 04/23/22 07:59 Pulse Ox 95 04/23/22 07:59 O2 Del Method 04/23/22 07:59 BMI result Body Mass Index 40.8 On exam she is nontoxic NC/AT, PERRLA, EOMI Sclera anicteric Abdomen is obese with diffuse tenderness. No rebound, rigidity or guarding is present Lower extremities are free of any palpable cords and significant edema Objective Data Active Medications Albuterol Sulfate (Albuterol Sulfate (0.042%) 1.25 Mg/3 Ml Vial.Neb) 1.25 mg INHALE RQ6H PRN PRN Reason: Shortness of Breath Clonazepam (Clonazepam 1 Mg Tablet) 1 mg PO TID PRN PRN Reason: Anxiety Last Admin: 04/23/22 08:08 Dose: 1 mg Documented By: BLANCA Hydralazine HCl (Hydralazine Hcl 20 Mg/Ml Vial) 5 mg IVPUSH Q6H PRN; Protocol PRN Reason: SBP >180 Hydromorphone HCl (Hydromorphone Hcl 1 Mg/Ml Syringe) 1 mg IVPUSH Q3H PRN; Protocol PRN Reason: Pain, Severe (Pain Scale 7-10) Last Admin: 04/23/22 08:40 Dose: 1 mg Documented By: BLANCA Lactated Ringer's (Lr) 1,000 mls @ 80 mls/hr IVCONT .[id number] JORDAN Stop: 04/25/22 07:00 Multi-Ingred Medicated Throat [place] (Throat [place], Medicated 20 Ml Bottle) 1 spray MUCOUS MEM Q2H PRN PRN Reason: Sore Throat Last Admin: 04/20/22 19:20 Dose: 1 spray Documented By: HO.THOMSOC Nifedipine (Nifedipine Er 60 Mg Tab.Er.24) 60 mg PO DAILY [facility]; Protocol Last Admin: 04/23/22 08:09 Dose: 60 mg Documented By: BLANCA Ondansetron HCl (Ondansetron Hcl 4 Mg/2 Ml Vial) 4 mg IVPUSH Q8H PRN PRN Reason: Nausea and Vomiting Pharmacy Consult (Consult Rx Perform Med Rec) 1 each MISCELLANE ONCE PRN PRN Reason: Consult order Quetiapine Fumarate (Quetiapine Fumarate 400 Mg Tablet) 400 mg PO BEDTIME [facility] Last Admin: 04/22/22 22:07 Dose: 400 mg Documented By: EMILY Risperidone (Risperidone 0.5 Mg Tablet) 0.5 mg PO BID [facility] Last Admin: 04/23/22 08:08 Dose: 0.5 mg Documented By: BLANCA Sodium Chloride (0.9 % Sodium Chloride Flush 3 Ml Syringe) 3 ml IVFLUSH QSHIFT [facility] Last Admin: 04/23/22 08:09 Dose: 3 ml Documented By: BLANCA Labs CBC & Chem 7: 04/22/22 05:48 04/22/22 05:48 Procedures Date of Service Date of Service: 04/23/22 Progress Note: A&P Assessment and plan (1) Small bowel obstruction: Status: Acute (2) Abdominal pain: Status: Acute (3) HTN (hypertension): Status: Acute Plan Continue bowel rest and IV fluid. Hold on advancing diet for another 24 hours since she reports significant pain. I do not see that additional imaging will be helpful, will follow clinically. Time Spent With Patient Time: Total time spent is greater than 50% in coordination of care (as documented) at patient's floor/unit and/or counseling patient: Quality Stroke Does the patient have a stroke diagnosis?: No VTE Prior VTE?: No VTE Risk Level:: Surgical - low VTE Device Contraindication: N/A - Device Ordered VTE Drug Contraindication: Treatment Not Indicated
[2022-04-23] MEDS: Lactated Ringers 1,000 ML 80 ML IVCONT ×2 (11:25→21:36)
[2022-04-23] MEDS: QUEtiapine Fumarate 400 MG TABLET PO (21:34)
[2022-04-24 03:57] VITALS: BP 136/70; PULSE 78; RESP 18; TEMP 36.3; O2SAT 95
[2022-04-24] MEDS: HYDROmorphone HCl 1 MG/ML SYRINGE IVPUSH ×7 (04:06→22:44)
[2022-04-24 07:51] VITALS: BP 159/81; PULSE 90; RESP 15; TEMP 36.9; O2SAT 96
[2022-04-24] MEDS: NIFEdipine ER 60 MG TAB.ER.24 PO (07:52)
[2022-04-24] MEDS: clonazePAM 1 MG TABLET PO ×3 (07:52→20:11)
[2022-04-24] MEDS: risperiDONE 0.5 MG TABLET PO ×2 (07:52→20:11)
--- NOTE | 2022-04-24 10:00 | P.PNGS_ITS ---
Subjective Subjective Date of Service: 04/24/22 Patient reports: pain is less Interval history: The patient reports less abdominal pain today and notes that she is hungry and interested in eating. She reports continued flatus and denies any nausea, vomiting, chest pain, headache, visual disturbances or other significant new symptoms. Physical Exam Vital Signs: Vital Signs: Last Vital Signs Temp 98.5 F 04/24/22 07:51 Pulse 90 04/24/22 07:51 Resp 15 04/24/22 07:51 BP 159/81 H 04/24/22 07:51 Pulse Ox 96 04/24/22 07:51 O2 Del Method 04/24/22 07:51 BMI result Body Mass Index 40.8 She is nontoxic NC/AT PERRLA, EOMI, sclera are anicteric Abdomen is obese with less tenderness than yesterday's exam. No peritoneal sign is present Extremities are free of cyanosis, clubbing and edema Objective Data Active Medications Albuterol Sulfate (Albuterol Sulfate (0.042%) 1.25 Mg/3 Ml Vial.Neb) 1.25 mg INHALE RQ6H PRN PRN Reason: Shortness of Breath Clonazepam (Clonazepam 1 Mg Tablet) 1 mg PO TID PRN PRN Reason: Anxiety Last Admin: 04/24/22 07:52 Dose: 1 mg Documented By: BLANCA Hydralazine HCl (Hydralazine Hcl 20 Mg/Ml Vial) 5 mg IVPUSH Q6H PRN; Protocol PRN Reason: SBP >180 Hydromorphone HCl (Hydromorphone Hcl 1 Mg/Ml Syringe) 1 mg IVPUSH Q3H PRN; Protocol PRN Reason: Pain, Severe (Pain Scale 7-10) Last Admin: 04/24/22 07:52 Dose: 1 mg Documented By: BLANCA Lactated Ringer's (Lr) 1,000 mls @ 80 mls/hr IVCONT .[id number] JORDAN Stop: 04/25/22 07:00 Last Admin: 04/23/22 21:36 Dose: 80 mls/hr Documented By: EMILY Multi-Ingred Medicated Throat [place] (Throat [place], Medicated 20 Ml Bottle) 1 spray MUCOUS MEM Q2H PRN PRN Reason: Sore Throat Last Admin: 04/20/22 19:20 Dose: 1 spray Documented By: BILLY Nifedipine (Nifedipine Er 60 Mg Tab.Er.24) 60 mg PO DAILY [facility]; Protocol Last Admin: 04/24/22 07:52 Dose: 60 mg Documented By: BLANCA Ondansetron HCl (Ondansetron Hcl 4 Mg/2 Ml Vial) 4 mg IVPUSH Q8H PRN PRN Reason: Nausea and Vomiting Pharmacy Consult (Consult Rx Perform Med Rec) 1 each MISCELLANE ONCE PRN PRN Reason: Consult order Quetiapine Fumarate (Quetiapine Fumarate 400 Mg Tablet) 400 mg PO BEDTIME [facility] Last Admin: 04/23/22 21:34 Dose: 400 mg Documented By: EMILY Risperidone (Risperidone 0.5 Mg Tablet) 0.5 mg PO BID [facility] Last Admin: 04/24/22 07:52 Dose: 0.5 mg Documented By: BLANCA Sodium Chloride (0.9 % Sodium Chloride Flush 3 Ml Syringe) 3 ml IVFLUSH QSHIFT [facility] Last Admin: 04/24/22 07:16 Dose: Not Given Documented By: BLANCA Non-Admin Reason: IV Running Labs CBC & Chem 7: 04/22/22 05:48 04/22/22 05:48 Procedures Date of Service Date of Service: 04/24/22 Progress Note: A&P Assessment and plan (1) Small bowel obstruction: Status: Acute (2) Abdominal pain: Status: Acute (3) HTN (hypertension): Status: Acute Plan Start clear liquids. Continue supplemental IV fluid for now. Call MD if she has nausea or vomiting or worsening abdominal pain and resume NPO. Time Spent With Patient Time: Total time spent is greater than 50% in coordination of care (as documented) at patient's floor/unit and/or counseling patient: Quality Stroke Does the patient have a stroke diagnosis?: No VTE Prior VTE?: No VTE Risk Level:: Surgical - low VTE Device Contraindication: N/A - Device Ordered VTE Drug Contraindication: Treatment Not Indicated
[2022-04-24] MEDS: Lactated Ringers 1,000 ML 80 ML IVCONT ×2 (10:29→20:12)
--- NOTE | 2022-04-24 10:35 | HO.PM.IMPN ---
Subjective Subjective Date of Service: 04/24/22 Review of Systems Follow up consult for SBO abd pain getting better passign flatus feeling hungry DOING BETTER, DIET ADVANCED, BP IMPROVING, SIGNING OFF Physical Exam Vital Signs: Vital Signs: Last Vital Signs Temp 98.5 F 04/24/22 07:51 Pulse 90 04/24/22 07:51 Resp 15 04/24/22 07:51 BP 159/81 H 04/24/22 07:51 Pulse Ox 96 04/24/22 07:51 O2 Del Method 04/24/22 07:51 BMI result Body Mass Index 40.8 Appearing in no acute distress lung sounds are clear to auscultation heart regular rate rhythm, clear S1, S2 positive bowel sounds, abdomen is soft, nontender neuro patient is alert x3, no focal deficits Objective Data Active Medications Albuterol Sulfate (Albuterol Sulfate (0.042%) 1.25 Mg/3 Ml Vial.Neb) 1.25 mg INHALE RQ6H PRN PRN Reason: Shortness of Breath Clonazepam (Clonazepam 1 Mg Tablet) 1 mg PO TID PRN PRN Reason: Anxiety Last Admin: 04/24/22 07:52 Dose: 1 mg Documented By: BLANCA Hydralazine HCl (Hydralazine Hcl 20 Mg/Ml Vial) 5 mg IVPUSH Q6H PRN; Protocol PRN Reason: SBP >180 Hydromorphone HCl (Hydromorphone Hcl 1 Mg/Ml Syringe) 1 mg IVPUSH Q3H PRN; Protocol PRN Reason: Pain, Severe (Pain Scale 7-10) Last Admin: 04/24/22 07:52 Dose: 1 mg Documented By: BLANCA Lactated Ringer's (Lr) 1,000 mls @ 80 mls/hr IVCONT .[id number] JORDAN Stop: 04/25/22 07:00 Last Admin: 04/24/22 10:29 Dose: 80 mls/hr Documented By: BLANCA Multi-Ingred Medicated Throat [place] (Throat [place], Medicated 20 Ml Bottle) 1 spray MUCOUS MEM Q2H PRN PRN Reason: Sore Throat Last Admin: 04/20/22 19:20 Dose: 1 spray Documented By: BILLY Nifedipine (Nifedipine Er 60 Mg Tab.Er.24) 60 mg PO DAILY [facility]; Protocol Last Admin: 04/24/22 07:52 Dose: 60 mg Documented By: BLANCA Ondansetron HCl (Ondansetron Hcl 4 Mg/2 Ml Vial) 4 mg IVPUSH Q8H PRN PRN Reason: Nausea and Vomiting Pharmacy Consult (Consult Rx Perform Med Rec) 1 each MISCELLANE ONCE PRN PRN Reason: Consult order Quetiapine Fumarate (Quetiapine Fumarate 400 Mg Tablet) 400 mg PO BEDTIME [facility] Last Admin: 04/23/22 21:34 Dose: 400 mg Documented By: EMILY Risperidone (Risperidone 0.5 Mg Tablet) 0.5 mg PO BID [facility] Last Admin: 04/24/22 07:52 Dose: 0.5 mg Documented By: BLANCA Sodium Chloride (0.9 % Sodium Chloride Flush 3 Ml Syringe) 3 ml IVFLUSH QSHIFT [facility] Last Admin: 04/24/22 07:16 Dose: Not Given Documented By: BLANCA Non-Admin Reason: IV Running Labs CBC & Chem 7: 04/22/22 05:48 04/22/22 05:48 Assessment and Plan (1) Small bowel obstruction: Status: Acute (2) HTN (hypertension): Status: Acute Plan 66F with history of hypertension, mood disorder who presented with SBO SBO s/p NGT placement, removed improving abdominal pain management per surgery diet advanced to clears HTN. better likely secondary to pain continue nifedipine prn hydralazine for SBP >180 mood disorder requesting to have seroquel, klonopin, risperdal remainder of meds on hold for SBO (bupropion, escitalopram on hold) mild intermittent asthma bronchodilators prn HLD statin on hold Morbid obesity BMI 40.8 dvt ppx per primary team attending - dr. Leigh MEDICAL CONSULTATION COMPLETE, WILL SIGN OFF Quality Stroke Does the patient have a stroke diagnosis?: No VTE Prior VTE?: No VTE Risk Level:: Surgical - low VTE Device Contraindication: N/A - Device Ordered VTE Drug Contraindication: Treatment Not Indicated
[2022-04-24 11:20] VITALS: BP 135/70; PULSE 75; RESP 14; TEMP 36.5; O2SAT 92
[2022-04-24 15:35] VITALS: BP 139/80; PULSE 81; RESP 14; TEMP 36.7; O2SAT 97
[2022-04-24 19:30] VITALS: BP 155/82; PULSE 84; RESP 14; TEMP 36.7; O2SAT 99
[2022-04-24] MEDS: Docusate Sodium 100 MG CAPSULE 200 MG PO (20:10)
[2022-04-24] MEDS: QUEtiapine Fumarate 400 MG TABLET PO (20:11)
[2022-04-25] VITALS (7 sets, daily range): BP systolic 133–166; BP diastolic 65–92; PULSE 58–80; RESP 15–18; TEMP 36.4–37.1; O2SAT 94–97
[2022-04-25] MEDS: HYDROmorphone HCl 1 MG/ML SYRINGE IVPUSH ×7 (04:57→23:01)
[2022-04-25] MEDS: Lactated Ringers 1,000 ML 80 ML IVCONT (04:59)
[2022-04-25] MEDS: NIFEdipine ER 60 MG TAB.ER.24 PO (07:58)
[2022-04-25] MEDS: Docusate Sodium 100 MG CAPSULE 200 MG PO ×2 (07:58→20:24)
[2022-04-25] MEDS: 0.9 % Sodium Chloride Flush 3 ML SYRINGE IVFLUSH ×3 (07:59→23:01)
[2022-04-25] MEDS: risperiDONE 0.5 MG TABLET PO ×2 (07:59→20:24)
[2022-04-25] MEDS: clonazePAM 1 MG TABLET PO ×3 (08:07→20:24)
--- NOTE | 2022-04-25 10:15 | PM.PNGS ---
Subjective Subjective Date of Service: 04/25/22 Interval history: Feels much better Hungry and wants to eat A little bit of pain, much improved Physical Exam Vital Signs: Vital Signs: Last Vital Signs Temp 98 F 04/25/22 07:20 Pulse 80 04/25/22 07:20 Resp 18 04/25/22 07:20 BP 150/85 H 04/25/22 07:20 Pulse Ox 97 04/25/22 07:20 O2 Del Method 04/25/22 07:20 BMI result Body Mass Index 40.8 Const: General: comfortable and no acute distress Resp: Effort & Inspection: normal respiratory effort Cardio: Rate: regular rate GI: Palpation (GI): Soft to palpation, not firm, nontender and no guarding Objective Data Active Medications Albuterol Sulfate (Albuterol Sulfate (0.042%) 1.25 Mg/3 Ml Vial.Neb) 1.25 mg INHALE RQ6H PRN PRN Reason: Shortness of Breath Clonazepam (Clonazepam 1 Mg Tablet) 1 mg PO TID PRN PRN Reason: Anxiety Last Admin: 04/25/22 08:07 Dose: 1 mg Documented By: JESSENIA Docusate Sodium (Docusate Sodium 100 Mg Capsule) 200 mg PO BID REPLACED BY [facility] Last Admin: 04/25/22 07:58 Dose: 200 mg Documented By: JESSENIA Hydralazine HCl (Hydralazine Hcl 20 Mg/Ml Vial) 5 mg IVPUSH Q6H PRN; Protocol PRN Reason: SBP >180 Hydromorphone HCl (Hydromorphone Hcl 1 Mg/Ml Syringe) 1 mg IVPUSH Q3H PRN; Protocol PRN Reason: Pain, Severe (Pain Scale 7-10) Last Admin: 04/25/22 07:59 Dose: 1 mg Documented By: JESSENIA Multi-Ingred Medicated Throat [place] (Throat [place], Medicated 20 Ml Bottle) 1 spray MUCOUS MEM Q2H PRN PRN Reason: Sore Throat Last Admin: 04/20/22 19:20 Dose: 1 spray Documented By: BILLY Nifedipine (Nifedipine Er 60 Mg Tab.Er.24) 60 mg PO DAILY REPLACED BY [facility]; Protocol Last Admin: 04/25/22 07:58 Dose: 60 mg Documented By: JESSENIA Ondansetron HCl (Ondansetron Hcl 4 Mg/2 Ml Vial) 4 mg IVPUSH Q8H PRN PRN Reason: Nausea and Vomiting Pharmacy Consult (Consult Rx Perform Med Rec) 1 each MISCELLANE ONCE PRN PRN Reason: Consult order Quetiapine Fumarate (Quetiapine Fumarate 400 Mg Tablet) 400 mg PO BEDTIME REPLACED BY [facility] Last Admin: 04/24/22 20:11 Dose: 400 mg Documented By: KATHRYN Risperidone (Risperidone 0.5 Mg Tablet) 0.5 mg PO BID REPLACED BY [facility] Last Admin: 04/25/22 07:59 Dose: 0.5 mg Documented By: JESSENIA Sodium Chloride (0.9 % Sodium Chloride Flush 3 Ml Syringe) 3 ml IVFLUSH QSHIFT REPLACED BY [facility] Last Admin: 04/25/22 07:59 Dose: 3 ml Documented By: JESSENIA Labs CBC & Chem 7: 04/22/22 05:48 04/22/22 05:48 Procedures Date of Service Date of Service: 04/25/22 Progress Note: A&P Assessment and plan (1) Small bowel obstruction: Status: Acute Assessment and Plan: Much improved Exam remains benign Passing flatus Hungry and wants to eat Full liquid diet Time Spent With Patient Time: Total time spent is greater than 50% in coordination of care (as documented) at patient's floor/unit and/or counseling patient: Quality Stroke Does the patient have a stroke diagnosis?: No VTE Prior VTE?: No VTE Risk Level:: Surgical - low VTE Device Contraindication: N/A - Device Ordered VTE Drug Contraindication: Treatment Not Indicated
[2022-04-25] MEDS: QUEtiapine Fumarate 400 MG TABLET PO (20:24)
[2022-04-26 03:46] VITALS: BP 139/63; PULSE 69; RESP 18; TEMP 36.7; O2SAT 96
[2022-04-26] MEDS: HYDROmorphone HCl 1 MG/ML SYRINGE IVPUSH ×6 (05:33→21:11)
[2022-04-26 07:15] VITALS: BP 140/73; PULSE 84; RESP 20; TEMP 36.1; O2SAT 97
[2022-04-26] MEDS: Docusate Sodium 100 MG CAPSULE 200 MG PO (08:15)
[2022-04-26] MEDS: risperiDONE 0.5 MG TABLET PO ×2 (08:15→22:00)
[2022-04-26] MEDS: NIFEdipine ER 60 MG TAB.ER.24 PO (08:15)
[2022-04-26] MEDS: 0.9 % Sodium Chloride Flush 3 ML SYRINGE IVFLUSH ×2 (08:16→22:04)
[2022-04-26] MEDS: clonazePAM 1 MG TABLET PO ×3 (08:21→22:05)
--- NOTE | 2022-04-26 08:27 | PM.PNGS ---
Subjective Subjective Date of Service: 04/26/22 Interval history: says she feels well denies pain passing flatus hungry and wants to eat Physical Exam Vital Signs: Vital Signs: Last Vital Signs Temp 96.9 F 04/26/22 07:15 Pulse 84 04/26/22 07:15 Resp 20 04/26/22 07:15 BP 140/73 H 04/26/22 07:15 Pulse Ox 97 04/26/22 07:15 O2 Del Method 04/26/22 07:15 BMI result Body Mass Index 40.8 Const: General: comfortable and no acute distress Resp: Effort & Inspection: normal respiratory effort Cardio: Rate: regular rate GI: Palpation (GI): Soft to palpation, not firm, nontender and no guarding Objective Data Active Medications Albuterol Sulfate (Albuterol Sulfate (0.042%) 1.25 Mg/3 Ml Vial.Neb) 1.25 mg INHALE RQ6H PRN PRN Reason: Shortness of Breath Clonazepam (Clonazepam 1 Mg Tablet) 1 mg PO TID PRN PRN Reason: Anxiety Last Admin: 04/26/22 08:21 Dose: 1 mg Documented By: ANGELINA Docusate Sodium (Docusate Sodium 100 Mg Capsule) 200 mg PO BID JORDAN Last Admin: 04/26/22 08:15 Dose: 200 mg Documented By: ANGELINA Hydralazine HCl (Hydralazine Hcl 20 Mg/Ml Vial) 5 mg IVPUSH Q6H PRN; Protocol PRN Reason: SBP >180 Hydromorphone HCl (Hydromorphone Hcl 1 Mg/Ml Syringe) 1 mg IVPUSH Q3H PRN; Protocol PRN Reason: Pain, Severe (Pain Scale 7-10) Last Admin: 04/26/22 05:33 Dose: 1 mg Documented By: KATHRYN Multi-Ingred Medicated Throat [place] (Throat [place], Medicated 20 Ml Bottle) 1 spray MUCOUS MEM Q2H PRN PRN Reason: Sore Throat Last Admin: 04/20/22 19:20 Dose: 1 spray Documented By: BILLY Nifedipine (Nifedipine Er 60 Mg Tab.Er.24) 60 mg PO DAILY [facility]; Protocol Last Admin: 04/26/22 08:15 Dose: 60 mg Documented By: ANGELINA Ondansetron HCl (Ondansetron Hcl 4 Mg/2 Ml Vial) 4 mg IVPUSH Q8H PRN PRN Reason: Nausea and Vomiting Pharmacy Consult (Consult Rx Perform Med Rec) 1 each MISCELLANE ONCE PRN PRN Reason: Consult order Quetiapine Fumarate (Quetiapine Fumarate 400 Mg Tablet) 400 mg PO BEDTIME [facility] Last Admin: 04/25/22 20:24 Dose: 400 mg Documented By: KATHRYN Risperidone (Risperidone 0.5 Mg Tablet) 0.5 mg PO BID [facility] Last Admin: 04/26/22 08:15 Dose: 0.5 mg Documented By: ANGELINA Sodium Chloride (0.9 % Sodium Chloride Flush 3 Ml Syringe) 3 ml IVFLUSH QSHIFT [facility] Last Admin: 04/26/22 08:16 Dose: 3 ml Documented By: ANGELINA Labs CBC & Chem 7: 04/22/22 05:48 04/22/22 05:48 Procedures Date of Service Date of Service: 04/26/22 Progress Note: A&P Assessment and plan (1) Small bowel obstruction: Status: Acute Assessment and Plan: symptoms resolved diet as tolerated patient looks well possible DC home today if she continues to tolerates diet clinically doing very well Time Spent With Patient Time: Total time spent is greater than 50% in coordination of care (as documented) at patient's floor/unit and/or counseling patient: Quality Stroke Does the patient have a stroke diagnosis?: No VTE Prior VTE?: No VTE Risk Level:: Surgical - low VTE Device Contraindication: N/A - Device Ordered VTE Drug Contraindication: Treatment Not Indicated
[2022-04-26 11:27] VITALS: BP 138/77; PULSE 68; RESP 20; TEMP 36; O2SAT 96
[2022-04-26 15:21] VITALS: BP 144/84; PULSE 82; RESP 20; TEMP 36.7; O2SAT 97
[2022-04-26 19:20] VITALS: BP 138/66; PULSE 70; RESP 20; TEMP 36.4; O2SAT 95
[2022-04-26] MEDS: QUEtiapine Fumarate 400 MG TABLET PO (22:00)
[2022-04-27 04:20] VITALS: BP 138/68; PULSE 82; RESP 18; TEMP 36.5; O2SAT 95
[2022-04-27] MEDS: HYDROmorphone HCl 1 MG/ML SYRINGE IVPUSH ×2 (04:25→08:16)
[2022-04-27] MEDS: clonazePAM 1 MG TABLET PO (08:16)
[2022-04-27] MEDS: NIFEdipine ER 60 MG TAB.ER.24 PO (08:16)
[2022-04-27] MEDS: risperiDONE 0.5 MG TABLET PO (08:17)
[2022-04-27] MEDS: 0.9 % Sodium Chloride Flush 3 ML SYRINGE IVFLUSH (08:17)
[2022-04-27] MEDS: Docusate Sodium 100 MG CAPSULE 200 MG PO (08:17)
--- NOTE | 2022-04-27 08:37 | PM.PNGS ---
Subjective Subjective Date of Service: 04/27/22 Interval history: feels well passig flatus and BMs no abdl pain tolerating regular diet says she wants to go home Physical Exam Vital Signs: Vital Signs: Last Vital Signs Temp 97.7 F 04/27/22 04:20 Pulse 82 04/27/22 04:20 Resp 18 04/27/22 04:20 BP 138/68 04/27/22 04:20 Pulse Ox 95 04/27/22 04:20 O2 Del Method 04/27/22 04:20 BMI result Body Mass Index 40.8 Const: General: comfortable and no acute distress Orientation/consciousness: patient oriented x3 Resp: Auscultation: clear to auscultation bilaterally Cardio: Rate: regular rate GI: Palpation (GI): Soft to palpation, not firm, nontender and no guarding Neuro: General: patient oriented x3 Objective Data Active Medications Albuterol Sulfate (Albuterol Sulfate (0.042%) 1.25 Mg/3 Ml Vial.Neb) 1.25 mg INHALE RQ6H PRN PRN Reason: Shortness of Breath Clonazepam (Clonazepam 1 Mg Tablet) 1 mg PO TID PRN PRN Reason: Anxiety Last Admin: 04/27/22 08:16 Dose: 1 mg Documented By: CINDY Docusate Sodium (Docusate Sodium 100 Mg Capsule) 200 mg PO BID [facility] Last Admin: 04/27/22 08:17 Dose: 200 mg Documented By: CINDY Hydralazine HCl (Hydralazine Hcl 20 Mg/Ml Vial) 5 mg IVPUSH Q6H PRN; Protocol PRN Reason: SBP >180 Hydromorphone HCl (Hydromorphone Hcl 1 Mg/Ml Syringe) 1 mg IVPUSH Q3H PRN; Protocol PRN Reason: Pain, Severe (Pain Scale 7-10) Last Admin: 04/27/22 08:16 Dose: 1 mg Documented By: CINDY Multi-Ingred Medicated Throat [place] (Throat [place], Medicated 20 Ml Bottle) 1 spray MUCOUS MEM Q2H PRN PRN Reason: Sore Throat Last Admin: 04/20/22 19:20 Dose: 1 spray Documented By: BILLY Nifedipine (Nifedipine Er 60 Mg Tab.Er.24) 60 mg PO DAILY [facility]; Protocol Last Admin: 04/27/22 08:16 Dose: 60 mg Documented By: CINDY Ondansetron HCl (Ondansetron Hcl 4 Mg/2 Ml Vial) 4 mg IVPUSH Q8H PRN PRN Reason: Nausea and Vomiting Pharmacy Consult (Consult Rx Perform Med Rec) 1 each MISCELLANE ONCE PRN PRN Reason: Consult order Quetiapine Fumarate (Quetiapine Fumarate 400 Mg Tablet) 400 mg PO BEDTIME [facility] Last Admin: 04/26/22 22:00 Dose: 400 mg Documented By: SACHIN Risperidone (Risperidone 0.5 Mg Tablet) 0.5 mg PO BID [facility] Last Admin: 04/27/22 08:17 Dose: 0.5 mg Documented By: CINDY Sodium Chloride (0.9 % Sodium Chloride Flush 3 Ml Syringe) 3 ml IVFLUSH QSHIFT [facility] Last Admin: 04/27/22 08:17 Dose: 3 ml Documented By: CINDY Labs CBC & Chem 7: 04/22/22 05:48 04/22/22 05:48 Procedures Date of Service Date of Service: 04/27/22 Progress Note: A&P Assessment and plan (1) Small bowel obstruction: Status: Acute Assessment and Plan: symptoms resolved good GI function exam benign she looks well ok to dc home no new meds Time Spent With Patient Time: Total time spent is greater than 50% in coordination of care (as documented) at patient's floor/unit and/or counseling patient: Quality Stroke Does the patient have a stroke diagnosis?: No VTE Prior VTE?: No VTE Risk Level:: Surgical - low VTE Device Contraindication: N/A - Device Ordered VTE Drug Contraindication: Treatment Not Indicated
--- NOTE | 2022-04-27 09:21 | MHC.CM.PN ---
PATIENT IS DISCHARGED HOME - SELF CARE IMM 04/26 IN CHART
--- NOTE | 2022-04-30 14:15 | P.DS_ITS ---
DS: Providers Provider Date of Service: 04/27/22 Date of admission: 04/20/22 21:10 Primary care physician: Bela Vasquez MD Consults: 04/21/22 16:31 Consult to Hospitalist Routine Consulting Provider: Hospitalist Reason For Exam: HTN DS: Diagnosis Discharge Diagnosis (1) Small bowel obstruction: Status: Acute DS: Summary Hospital Course Hospital Course: 66F with a hx of colon resection in the distant past, admitted on 04/22/[address] for abdominal pain. Her CT scan was suggestive of PSBO. She has had previous admissions for PSBO in the past, although this segment appeared to be different from the previous CT scan. There was some inflammatory changes as well in a segment of the SB. She had an NGT placed. She was kept NPO and hydrated. She started to pass flatus after her 2nd hospital day. The NGT was removed. She was started on clear liquids and this was slowly advanced. She slowly tolerated advancement of diet and her abdominal pain improved steadily. She was therefore discharged on 04/27/22., Time spent discussing smoking cessation with patient: 3 to 10 minutes Time Spent with Patient Time attestation: Total time spent providing and/or coordinating discharge services: Discharge coordination time: Less than 30 minutes Quality: Safe Use of Opioids Does Pt have an Active Cancer Diagnosis on the Problem List?: No Quality: Stroke Does the patient have a stroke diagnosis?: No Physical Exam Vital Signs: Vital Signs: Last Vital Signs Temp 97.7 F 04/27/22 04:20 Pulse 82 04/27/22 04:20 Resp 18 04/27/22 04:20 BP 138/68 04/27/22 04:20 Pulse Ox 95 04/27/22 04:20 O2 Del Method 04/27/22 04:20 BMI result Body Mass Index 40.8 Const: Other: morbidly obese General: comfortable and no acute distress Orientation/consciousness: patient oriented x3 Neck: Neck: Yes no lymphadenopathy Resp: Auscultation: clear to auscultation bilaterally Cardio: Rhythm: regular rhythm GI: Palpation (GI): Soft to palpation, nontender and no guarding Neuro: General: patient oriented x3 DS: Data Data Completed and Pending Labs on day of discharge: Laboratory Results WBC 9.0 X10*3/uL (4.8-10.8) 04/22/22 05:48 RBC 3.97 X10*6/uL (4.20-5.50) L 04/22/22 05:48 Hgb 11.2 g/dl (12.0-16.0) L 04/22/22 05:48 Hct 35.6 % (37.0-47.0) L 04/22/22 05:48 MCV 89.7 fL (80.0-98.0) 04/22/22 05:48 MCH 28.2 pg (27.0-33.0) 04/22/22 05:48 MCHC 31.5 g/dl (31.0-35.0) 04/22/22 05:48 RDW 12.6 % (11.0-16.0) 04/22/22 05:48 Plt Count 285 X10*3/uL (160-400) 04/22/22 05:48 MPV 9.6 fL (9.4-12.3) 04/22/22 05:48 Immature Gran % (Auto) 0.4 % (0.0-0.4) 04/20/22 09:59 Neut % (Auto) 82.3 % (45-73) H 04/20/22 09:59 Lymph % (Auto) 10.9 % (20-40) L 04/20/22 09:59 [place] % (Auto) 4.9 % (2-11) 04/20/22 09:59 Eos % (Auto) 1.2 % (0-4) 04/20/22 09:59 Baso % (Auto) 0.3 % (0-2) 04/20/22 09:59 Lymph # (Auto) 1.1 X10*3/uL (1.2-4.9) L 04/20/22 09:59 [place] # (Auto) 0.5 X10*3/uL (0.1-1.2) 04/20/22 09:59 Eos # (Auto) 0.1 X10*3/uL (0.0-0.4) 04/20/22 09:59 Baso # (Auto) 0.0 X10*3/uL (0.0-0.2) 04/20/22 09:59 Abs Immat Gran (auto) 0.04 X10*3/uL (0.00-0.03) H 04/20/22 09:59 Absolute Neuts (auto) 8.4 x10*3/uL (2.0-8.3) H 04/20/22 09:59 Absolute Nucleated RBC 0.000 X10*3/uL (0.0-0.012) 04/22/22 05:48 Nucleated RBC % (auto) 0.0 /100WBC (0.0-0.2) 04/22/22 05:48 Sodium 143 mmol/L (135-145) 04/22/22 05:48 Potassium 4.4 mmol/L (3.3-5.1) 04/22/22 05:48 Chloride 109 mmol/L (96-108) H 04/22/22 05:48 Carbon Dioxide 28 mmol/L (22-29) 04/22/22 05:48 Anion Gap 10 (12-20) L 04/22/22 05:48 BUN 9 mg/dL (9-16) 04/22/22 05:48 Creatinine 0.84 mg/dL (0.5-1.4) 04/22/22 05:48 Estim Creat Clear Calc 71.5 04/22/22 05:48 Estimated GFR > 60 04/22/22 05:48 Random Glucose 130 mg/dL (60-115) H 04/22/22 05:48 Calcium 9.0 mg/dL (8.4-10.2) 04/22/22 05:48 Total Bilirubin 0.3 mg/dL (0.0-1.0) 04/20/22 09:59 Direct Bilirubin 0.2 mg/dL (0.0-0.5) 04/20/22 09:59 AST 17 U/L (5-31) 04/20/22 09:59 ALT 15 U/L (0-31) 04/20/22 09:59 Alkaline Phosphatase 100 U/L (39-117) 04/20/22 09:59 Total Protein 7.5 g/dL (6.5-8.0) 04/20/22 09:59 Albumin 4.5 g/dL (3.5-5.0) 04/20/22 09:59 Lipase 8 U/L (8-78) 04/20/22 09:59 Urine Color DK YELLOW 04/21/22 01:55 Urine Appearance HAZY 04/21/22 01:55 Urine pH 6.0 (5.0-8.0) 04/21/22 01:55 Ur Specific [place] >= 1.030 (1.005-1.025) H 04/21/22 01:55 Urine Protein NEG MG/DL (NEG-TRACE) 04/21/22 01:55 Urine Glucose (UA) NEG MG/DL (NEG) 04/21/22 01:55 Urine Ketones NEG MG/DL (NEG) 04/21/22 01:55 Urine Blood 3+ (NEG) H 04/21/22 01:55 Urine Nitrite NEG (NEG) 04/21/22 01:55 Ur Leukocyte Esterase NEG (NEG) 04/21/22 01:55 Urine RBC 30-49 /HPF (0) H 04/21/22 01:55 Urine WBC 0-2 /HPF (0-4) 04/21/22 01:55 Ur Squamous Epith Cells 3+ /LPF 04/21/22 01:55 Ur Renal Epithelial Cell 1+ /LPF 04/21/22 01:55 Urine Bacteria TRACE /LPF 04/21/22 01:55 Urine Mucus 2+ /LPF 04/21/22 01:55 COVID-19 (ROSIBEL) Negative (Negative) 04/20/22 19:12 COVID-19 Clin Com See Note 04/20/22 19:12 Impressions Abdomen/Pelvis CT 04/20/22 17:30 IMPRESSION: 1. Early small bowel obstruction. Dilated fluid-filled small bowel loops with transition in the lower abdomen, fever adhesive band. Small quantities of free fluid and mesenteric fat stranding suggesting an acute process. This is a different point of obstruction then noted on the prior CT of 12/31/2021. 2. Large amount of stool in the cecum. No evidence of large bowel obstruction or colitis. 3. Patient: Mandeep anastomosis at the rectosigmoid junction. 4. Cholecystectomy. Stable postoperative prominence of the bile ducts. Fleischner guidelines were followed. Chest X-Ray 04/20/22 19:32 IMPRESSION: NG tube is in the stomach Discharge Plan Discharge Patient Disposition: Home, Self-Care Discharge Diagnosis: partial small bowel obstruction Referrals: Bela Vasquez MD [Primary Care Provider] - 1 Week Discharge Medications: Continued atorvastatin 40 mg tablet 1 tab PO BEDTIME clonazepam 1 mg tablet 1 tab PO TID PRN (Reason: Anxiety) omeprazole 20 mg capsule,delayed release(DR/EC) 1 cap PO BID risperidone 0.5 mg tablet 1 tab PO BID oxycodone 5 mg tablet 1 tab PO Q12H PRN (Reason: pain) escitalopram oxalate 10 mg tablet 1 tab PO DAILY oxycodone [OxyContin] 10 mg tablet,oral only,ext.rel.12 hr 1 tab PO BID nifedipine 60 mg tablet extended release 24 hr 1 tab PO DAILY quetiapine 400 mg tablet 1 tab PO BEDTIME cholecalciferol (vitamin D3) 25 mcg (1,000 unit) tablet 1 tab PO DAILY bupropion HCl 150 mg Tablet Extended Release 24 Hr 150 mg PO DAILY Discharge Orders: Discharge Order (Routine); Ordered 04/27/22 Ordered By: Erick Cody Activity on Discharge: As tolerated Stand Alone Forms: Patient Portal Discharge page Care Plan Goals: control hypertension weight management Health Concerns: may have recurrent bowel obstruction Plan of Treatment: ffup with PCP Assessment: doing well Discharge Date/Time: 04/27/22 10:30
== END 2022-04-27 10:30 | disposition home or self-care (01) | DRG 389 ==
LOC: HO.ED 18:54 → HO.EDOVER 21:21 → HO.S3 04-21 09:34
PROVIDERS: Surgery; Admitting Provider Surgery; Emergency Provider Student in an Organized Health Care Education/Training Program; PCP Family Medicine; Visit Provider Surgery
DX: K56.50 Intestinal adhesions [bands], unspecified as to partial versus complete obstruction (principal); Z68.41 Body mass index [BMI] 40.0-44.9, adult; E66.01 Morbid (severe) obesity due to excess calories; K21.9 Gastro-esophageal reflux disease without esophagitis; F32.A Depression, unspecified; J45.20 Mild intermittent asthma, uncomplicated; E78.5 Hyperlipidemia, unspecified; Z20.822 Contact with and (suspected) exposure to COVID-19; Z87.442 Personal history of urinary calculi; Z79.899 Other long term (current) drug therapy
CPT/HCPCS: 36415; 71045; 74176; 80048; 80076; 81001; 83690; 85025; 85027; 87635; 96374; 96375; 96376; 99285; J1170; J2270

== ENCOUNTER 2022-07-08 08:11 | Day surgery (SDC) | payer OTHER, SELFPAY ==
[2022-07-06 10:21] VITALS: BMI 38.1
--- NOTE | 2022-07-07 12:10 | P.CONAN_ITS ---
Documented by User: Emily Sam NP 07/07/22 12:11 HPI - Anesthesia Eval Consult details Narrative: 67yo F for Colonoscopy Chronic opioids PMFSH Active Problems Active Problems: All Active Problems (Updated 05/05/22 @ 00:03 by Tamica Atkins) HTN (hypertension) (Acute) Past Medical History Medical History Anxiety Asthma Depression Elevated cholesterol GERD (gastroesophageal reflux disease) HTN (hypertension) Hx of renal calculi Hx of small bowel obstruction Family History Family History Father PVD (peripheral vascular disease) Mother Depression Surgical History Surgical History History of Salomon fundoplication Hx of colonoscopy Hx of hysterectomy, total Social History Social History Household Members: None Housing: Apartment Do you presently have visiting nurse or other home services: Yes Alcohol intake: never Patient Tobacco Use Status: Never used Tobacco Second Hand Smoke Exposure: No Use of substances other than those prescribed or required for medical reasons: No Are you DNR?: No Advance Directives: No Advance Directives Information Provided: Yes Advance Directives on File: No Patient : No service: No Current occupational status: disabled Meds Allergies Allergy/AdvReac Type Severity Reaction Status Date / Time No Known Allergies Allergy Verified 10/31/20 12:57 Home Medications Medication Instructions Recorded Confirmed Last Taken Type atorvastatin 40 mg tablet 1 tab PO BEDTIME 07/14/20 04/20/22 04/19/22 History clonazepam 1 mg tablet 1 tab PO TID PRN Anxiety 07/14/20 04/20/22 Unknown History escitalopram oxalate 10 mg tablet 1 tab PO DAILY 07/14/20 04/20/22 04/19/22 History omeprazole 20 mg capsule,delayed 1 cap PO BID 07/14/20 04/20/22 04/19/22 History release oxycodone 10 mg tablet,crush 1 tab PO BID 07/14/20 04/20/22 04/20/22 History resistant,extended release 12 hr (OxyContin) oxycodone 5 mg tablet 1 tab PO Q12H PRN pain 07/14/20 04/20/22 04/20/22 History risperidone 0.5 mg tablet 1 tab PO BID 07/14/20 04/20/22 04/19/22 History bupropion HCl 150 mg 24 hr tablet, 150 mg PO DAILY 12/31/21 04/20/22 04/19/22 History extended release cholecalciferol (vitamin D3) 25 1 tab PO DAILY 12/31/21 04/20/22 04/19/22 History mcg (1,000 unit) tablet nifedipine 60 mg tablet,extended 1 tab PO DAILY 12/31/21 04/20/22 04/19/22 History release 24 hr quetiapine 400 mg tablet 1 tab PO BEDTIME 12/31/21 04/20/22 04/19/22 History Exam Exam Date and Time: July 07, 2022 1210 Height,Weight and Vital Signs: Height 5 ft 2.5 in Weight 96.162 kg Pertinent Lab Results Pertinent Lab Results: Laboratory Tests 04/22/22 04/22/22 05:48 05:48 WBC 9.0 Hgb 11.2 L Hct 35.6 L Plt Count 285 Sodium 143 Potassium 4.4 Chloride 109 H Carbon Dioxide 28 BUN 9 Creatinine 0.84 Assessment and Plan Assessment Anesthesia Assessment: Chart Reviewed Documented by User: Brianda Campbell MD 07/08/22 10:25 [facility] Past Medical History Medical History Anxiety Asthma Depression Elevated cholesterol GERD (gastroesophageal reflux disease) HTN (hypertension) Hx of renal calculi Hx of small bowel obstruction Functional capacity: independent ambulation Patient : No Family History Family History Father PVD (peripheral vascular disease) Mother Depression Family history of problems with anesthesia: No Surgical History Surgical History History of Salomon fundoplication Hx of colonoscopy Hx of hysterectomy, total Social History Social History Household Members: None Housing: Apartment Do you presently have visiting nurse or other home services: Yes Alcohol intake: never Patient Tobacco Use Status: Never used Tobacco Second Hand Smoke Exposure: No Use of substances other than those prescribed or required for medical reasons: No Are you DNR?: No Advance Directives: No Advance Directives Information Provided: Yes Advance Directives on File: No Patient : No service: No Current occupational status: disabled Meds Allergies Allergy/AdvReac Type Severity Reaction Status Date / Time No Known Allergies Allergy Verified 10/31/20 12:57 Home Medications Medication Instructions Recorded Confirmed Last Taken Type atorvastatin 40 mg tablet 1 tab PO BEDTIME 07/14/20 04/20/22 04/19/22 History clonazepam 1 mg tablet 1 tab PO TID PRN Anxiety 07/14/20 04/20/22 Unknown History escitalopram oxalate 10 mg tablet 1 tab PO DAILY 07/14/20 04/20/22 04/19/22 History omeprazole 20 mg capsule,delayed 1 cap PO BID 07/14/20 04/20/22 04/19/22 History release oxycodone 10 mg tablet,crush 1 tab PO BID 07/14/20 04/20/22 04/20/22 History resistant,extended release 12 hr (OxyContin) oxycodone 5 mg tablet 1 tab PO Q12H PRN pain 07/14/20 04/20/22 04/20/22 History risperidone 0.5 mg tablet 1 tab PO BID 07/14/20 04/20/22 04/19/22 History bupropion HCl 150 mg 24 hr tablet, 150 mg PO DAILY 12/31/21 04/20/22 04/19/22 History extended release cholecalciferol (vitamin D3) 25 1 tab PO DAILY 12/31/21 04/20/22 04/19/22 History mcg (1,000 unit) tablet nifedipine 60 mg tablet,extended 1 tab PO DAILY 12/31/21 04/20/22 04/19/22 History release 24 hr quetiapine 400 mg tablet 1 tab PO BEDTIME 12/31/21 04/20/22 04/19/22 History Exam Airway Mallampati Class: II TM Dist: >3cm Neck ROM: Full Heart: RRR Lungs: CTA Assessment and Plan Final Anesthetic Review Family History of Problems with Anesthesia: No ASA Class: II Final Preanesthetic Review: No Changes in Pt Med Stat, Meds/Allgs Chart Reviewed, Consent Obtained/Reviewed and Anes Risks/Benef Reviewed Patient Risk: Low Procedure Risk: Low Anesthetic Plan Anesthetic Plan: MAC: Disposition: Standard PACU
[2022-07-08 08:40] VITALS: BP 132/78; PULSE 75; RESP 16; TEMP 36.3; O2SAT 97
[2022-07-08] MEDS: Lactated Ringers 1,000 ML 100 ML IVCONT (08:57)
[2022-07-08 10:51] VITALS: BP 125/72; PULSE 69; RESP 16; TEMP 36.8; O2SAT 95
--- NOTE | 2022-07-08 10:51 | PM.OP ---
Brief Operative Note Date of Service: 07/08/22 Pre-op diagnosis: Screening Post-op diagnosis: other (Internal hemorrhoids, normal anastomosis) Procedure: Colonoscopy to the cecum and TI Surgeon: Ralph Giles Anesthesia: MAC Was an Journal Entry Audit Clerk used for this Procedure?: No Estimated blood loss (mL): 0 Pathology: none sent Condition: stable Disposition: PACU
[2022-07-08 11:06] VITALS: BP 129/71; PULSE 66; RESP 18; TEMP 36.8; O2SAT 97
--- NOTE | 2022-07-08 11:27 | HO.POSTANES ---
Post Anesthesia Evaluation Post Anesthesia Evaluation Vital Signs: Vital Signs Temp Pulse Resp BP Pulse Ox O2 Del Method O2 Flow Rate 07/08/22 11:06 98.3 F 66 18 129/71 97 Room Air 07/08/22 10:51 98.3 F 69 16 125/72 95 Nasal Cannula 2 07/08/22 08:40 97.4 F 75 16 132/78 97 Room Air Anesthesia: Monitored Mental Status: Awake Pain Control: Satisfactory Nausea/Vomiting: None Hydration: Adequate Anesthesia-Related Issues: No Anes. Related Issues
--- NOTE | 2022-07-08 12:15 | HO.ANESPROP2 ---
[facility] Active Problems Active Problems: All Active Problems (Updated 05/05/22 @ 00:03 by Tamica Atkins) HTN (hypertension) (Acute) Past Medical History Medical History Anxiety Asthma Depression Elevated cholesterol GERD (gastroesophageal reflux disease) HTN (hypertension) Hx of renal calculi Hx of small bowel obstruction Functional capacity: independent ambulation Patient : No Family History Family History Father PVD (peripheral vascular disease) Mother Depression Family history of problems with anesthesia: No Surgical History Surgical History History of Aslomon fundoplication Hx of colonoscopy Hx of hysterectomy, total History of Problems with Anesthesia: No Social History Social History Household Members: None Housing: Apartment Do you presently have visiting nurse or other home services: Yes Alcohol intake: never Patient Tobacco Use Status: Never used Tobacco Second Hand Smoke Exposure: No Use of substances other than those prescribed or required for medical reasons: No Are you DNR?: No Advance Directives: No Advance Directives Information Provided: Yes Advance Directives on File: No Patient : No service: No Current occupational status: disabled Meds Allergies Allergy/AdvReac Type Severity Reaction Status Date / Time No Known Allergies Allergy Verified 10/31/20 12:57 Home Medications Medication Instructions Recorded Confirmed Last Taken Type atorvastatin 40 mg tablet 1 tab PO BEDTIME 07/14/20 04/20/22 04/19/22 History clonazepam 1 mg tablet 1 tab PO TID PRN Anxiety 07/14/20 04/20/22 Unknown History escitalopram oxalate 10 mg tablet 1 tab PO DAILY 07/14/20 04/20/22 04/19/22 History omeprazole 20 mg capsule,delayed 1 cap PO BID 07/14/20 04/20/22 04/19/22 History release oxycodone 10 mg tablet,crush 1 tab PO BID 07/14/20 04/20/22 04/20/22 History resistant,extended release 12 hr (OxyContin) oxycodone 5 mg tablet 1 tab PO Q12H PRN pain 07/14/20 04/20/22 04/20/22 History risperidone 0.5 mg tablet 1 tab PO BID 07/14/20 04/20/22 04/19/22 History bupropion HCl 150 mg 24 hr tablet, 150 mg PO DAILY 12/31/21 04/20/22 04/19/22 History extended release cholecalciferol (vitamin D3) 25 1 tab PO DAILY 12/31/21 04/20/22 04/19/22 History mcg (1,000 unit) tablet nifedipine 60 mg tablet,extended 1 tab PO DAILY 12/31/21 04/20/22 04/19/22 History release 24 hr quetiapine 400 mg tablet 1 tab PO BEDTIME 12/31/21 04/20/22 04/19/22 History Exam Exam Date and Time: July 08, 2022 1215 Height,Weight and Vital Signs: Height 5 ft 2.5 in Weight 96.162 kg Last Vital Signs Temp 98.3 F 07/08/22 11:06 Pulse 66 07/08/22 11:06 Resp 18 07/08/22 11:06 BP 129/71 07/08/22 11:06 Pulse Ox 97 07/08/22 11:06 O2 Del Method 07/08/22 11:06 O2 Flow Rate 2 07/08/22 10:51 Airway Mallampati Class: II TM Dist: >3cm Neck ROM: Full Heart: RRR Lungs: CTA Assessment and Plan Final Anesthetic Review Family History of Problems with Anesthesia: No History of Problems with Anesthesia: No ASA Class: II Final Preanesthetic Review: No Changes in Pt Med Stat, Meds/Allgs Chart Reviewed and Consent Obtained/Reviewed Patient Risk: Low Procedure Risk: Low Anesthetic Plan Anesthetic Plan: MAC: Disposition: Standard PACU
--- NOTE | 2022-07-08 23:55 | OP_ITS ---
SURGEON: Ralph Giles MD INDICATIONS: The patient presents for evaluation of colorectal cancer screening. Full consent has been obtained from her for this, including risks of bleeding and perforation. PREOPERATIVE DIAGNOSIS: Colorectal cancer screening. POSTOPERATIVE DIAGNOSIS: PROCEDURE PERFORMED: Colonoscopy to the cecum and terminal ileum. ESTIMATED BLOOD LOSS: COMPLICATIONS: ANESTHESIA: Monitored anesthesia care. ASSISTANTS: SPECIMENS: POSTOPERATIVE DIAGNOSES: Colorectal cancer screening, internal hemorrhoids. DESCRIPTION OF PROCEDURE: The patient was placed in the left lateral decubitus position. The digital rectal exam revealed no abnormalities. The Olympus video pediatric colonoscope was entered into the rectum and advanced to the cecum. Once in the cecum, I did identify a normal-appearing cecal pouch with appendiceal orifice and a normal-appearing ileocecal valve. The terminal ileum was cannulated and appeared normal. Scope was withdrawn back in the colon. The entire cecum and ileocecal valve appeared normal. The scope was slowly withdrawn assessing all mucosal surfaces carefully. Preparation was excellent. I did not visualize any sign of polyps, colitis, or angiodysplasia. At 30 cm was her anastomosis, which appeared normal. There was no sign of any obstruction nor ulceration. In the rectum, scope was retroflexed visualizing internal hemorrhoids, but no other pathology. The rectal mucosa appeared normal. The scope was straightened and withdrawn from the patient. She tolerated the procedure well and was returned to the recovery area in stable condition. IMPRESSION: Internal hemorrhoids, otherwise normal colonoscopy to the cecum and terminal ileum. Normal anastomosis. PLAN: Given today's negative exam and negative family history, I would recommend a followup colonoscopy in 10 years for further screening. She will otherwise see me on a p.r.n. basis. MD MARGARET Carrera/ERIKA / [phone]
== END 2022-07-08 11:28 | disposition home or self-care (01) ==
PROVIDERS: PCP Family Medicine; Visit Provider Internal Medicine
PROC: 0DJD8ZZ Inspection of Lower Intestinal Tract, Via Natural or Artificial Opening Endoscopic (ICD-10-PCS; CPT 45378; principal; 2022-07-08 09:30)
DX: Z12.11 Encounter for screening for malignant neoplasm of colon (principal); K64.8 Other hemorrhoids; Z98.0 Intestinal bypass and anastomosis status; K21.9 Gastro-esophageal reflux disease without esophagitis; I10 Essential (primary) hypertension; J45.909 Unspecified asthma, uncomplicated; F32.A Depression, unspecified; F41.1 Generalized anxiety disorder; Z79.899 Other long term (current) drug therapy; Z98.890 Other specified postprocedural states
CPT/HCPCS: G0121

== ENCOUNTER 2023-12-07 11:00 | Outpatient (REF) | payer OTHER, SELFPAY ==
--- NOTE | ~2023-12-07 | XR_ITS ---
EXAMINATION: XR CHEST CLINICAL INFORMATION: Persistent cough with fever. COMPARISON: 04/20/2022 TECHNIQUE: 2 views of the chest were obtained. FINDINGS: The lungs are well expanded. No focal consolidation. No pleural effusion. Cardiac silhouette is unchanged. XR/XR chest 2V IMPRESSION: No acute abnormality.
== END 2023-12-07 11:01 | disposition home or self-care (01) ==
LOC: HO.HHCX 11:00
PROVIDERS: Visit Provider Internal Medicine
DX: J40 Bronchitis, not specified as acute or chronic (principal)
CPT/HCPCS: 71046

== ENCOUNTER 2024-01-20 18:43 | Emergency (ER) | payer OTHER, SELFPAY ==
--- NOTE | 2024-01-20 18:46 | ED_ITS ---
HPI - Female Genitourinary General Chief complaint: Urogenital-Female Stated complaint: Blood in the urine Time Seen by Provider: 01/20/24 19:07 Source: patient Mode of arrival: ambulatory Limitations: no limitations History of Present Illness HPI Narrative: 68 yo female with history of hypertension here with hematuria, dysuria x several days. No abdominal pain, flank pain, vomiting, fevers. Related Data Home Medications ?Medication ?Instructions ?Recorded ?Confirmed atorvastatin 40 mg tablet 1 tab PO BEDTIME 07/14/20 04/20/22 clonazepam 1 mg tablet 1 tab PO TID PRN Anxiety 07/14/20 04/20/22 escitalopram oxalate 10 mg tablet 1 tab PO DAILY 07/14/20 04/20/22 omeprazole 20 mg capsule,delayed 1 cap PO BID 07/14/20 04/20/22 release oxycodone 10 mg tablet,crush 1 tab PO BID 07/14/20 04/20/22 resistant,extended release 12 hr (OxyContin) oxycodone 5 mg tablet 1 tab PO Q12H PRN pain 07/14/20 04/20/22 risperidone 0.5 mg tablet 1 tab PO BID 07/14/20 04/20/22 bupropion HCl 150 mg 24 hr tablet, 150 mg PO DAILY 12/31/21 04/20/22 extended release cholecalciferol (vitamin D3) 25 1 tab PO DAILY 12/31/21 04/20/22 mcg (1,000 unit) tablet nifedipine 60 mg tablet,extended 1 tab PO DAILY 12/31/21 04/20/22 release 24 hr quetiapine 400 mg tablet 1 tab PO BEDTIME 12/31/21 04/20/22 Previous Rx's ?Medication ?Instructions ?Recorded cefuroxime axetil 500 mg tablet 500 mg PO BID #14 tabs 01/20/24 phenazopyridine 200 mg tablet 200 mg PO TID PRN pain 6 doses #6 01/20/24 (Pyridium) tabs Allergies Allergy/AdvReac Type Severity Reaction Status Date / Time No Known Allergies Allergy Verified 01/20/24 18:51 Review of Systems Review of Systems: Yes all other systems are reviewed and are negative Constitutional: Constitutional: Reports no additional constitutional complaints, Denies body ache(s), Denies chills, Denies fever(s), Denies headache(s) and Denies weakness Eyes: Eyes: Reports no additional eye complaints and Denies change in vision ENT: Reports system reviewed and no additional complaints, except as documented, Denies dizziness, Denies headache(s), Denies nasal congestion, Denies nasal discharge and Denies neck pain Cardiovascular: Cardiovascular: Reports no additional cardiovascular complaints, Denies chest pain, Denies leg edema and Denies dyspnea Respiratory: Respiratory: Reports no additional respiratory complaints, Denies cough and Denies dyspnea Gastrointestinal: Gastrointestinal: Reports no additional gastrointestinal complaints, Denies abdominal pain, Denies diarrhea, Denies nausea and Denies vomiting Genitourinary: Genitourinary: Reports no additional female genitourinary comp laints, Reports hematuria, Reports dysuria, Denies pelvic pain, Denies urinary incontinence, Denies urinary hesitancy, Denies urinary urgency and Denies vaginal discharge Musculoskeletal: Musculoskeletal: Reports no additional musculoskeletal complaints, Denies back pain, Denies arthralgias, Denies joint swelling, Denies neck pain, Denies numbness and Denies tingling Integumentary/Breasts: Skin/Breast: Reports system reviewed and no additional complaints, except as docu and Denies rash Neurologic: Reports system reviewed and no additional complaints, except as documented, Denies Abnormal speech present, Denies dizziness, Denies headache(s), Denies numbness, Denies tingling and Denies weakness PMFSH Past Medical History Attestation statement: The following information was validated with the patient. Source: old records reviewed and nursing notes reviewed Medical History Hx of renal calculi Asthma Elevated cholesterol HTN (hypertension) Depression Anxiety Hx of small bowel obstruction GERD (gastroesophageal reflux disease) Surgical History Hx of colonoscopy Hx of hysterectomy, total History of Salomon fundoplication Family History Family History Father PVD (peripheral vascular disease) Mother Depression Social History Social History Household Members: None Housing: Apartment Do you presently have visiting nurse or other home services: Yes Alcohol intake: never Patient Tobacco Use Status: Never used Tobacco Second Hand Smoke Exposure: No Advance Directives: No Advance Directives Information Provided: No service: No Current occupational status: disabled Physical Exam Vital Signs: Vital Signs: Last Vital Signs Temp 97.5 F 01/20/24 19:07 Pulse 96 01/20/24 19:07 Resp 16 01/20/24 19:07 BP 144/81 H 01/20/24 19:07 Pulse Ox 95 01/20/24 19:07 O2 Del Method Room Air 01/20/24 19:07 BMI result Body Mass Index 37.8 Const: General: cooperative, healthy appearing, comfortable and no acute distress Orientation/consciousness: patient oriented x3 Limitations: no limitations HEENT: Head: Yes normal to inspection Ears: hearing grossly normal bilaterally General nose exam: Normal external nose present Face and sinus: Yes normal facial exam Mouth: Normal oral and palatal mucosa present Throat: Yes posterior oropharynx normal Eyes: General: appearance normal, both eyes and all related structures Pupils: Equal, round and reactive pupils present Neck: Neck: Yes normal visual inspection, Yes full ROM, Yes no lymphadenopathy and Yes no meningeal signs Chest: Chest palpation & inspection: normal inspection of the chest Resp: Effort & Inspection: normal respiratory effort Auscultation: clear to auscultation bilaterally Cardio: Rate: regular rate Rhythm: regular rhythm Peripheral pulses: Peripheral pulses 2+ throughout GI: Inspection: Yes normal to inspection Palpation (GI): Soft to palpation and nontender Auscultation: normal bowel sounds : General: Yes no CVA tenderness Back/Spine/Pelvis: Back: no CVA tenderness Thoracic/Lumbar Spine: thoracic and lumbar spine normal to inspection Skin: General skin exam: no rashes or lesions noted Neuro: General: patient oriented x3, no meningeal signs, no focal motor deficits and normal sensation to monofilament Cranial nerves: Yes Equal, round and reactive pupils present Cognition (Neuro): normal cognition Speech: No Abnormal speech present Gait exam (Neuro): Normal gait present Motor exam (neuro): 5/5 motor strength present throughout Extrem: General: Yes normal to inspection Course Course Course Narrative: This is a rapid medical exam. Deferred additional HPI, ROS, PE to primary provider. 68 yo female with history of hypertension here with hematuria, dysuria x several days. No abdominal pain, flank pain, vomiting, fevers. Will check UA VSS Medications Administered Discontinued Medications Generic Name Dose Route Start Last Admin Trade Name Edgardoq PRN Reason Stop Dose Admin Cefuroxime Axetil 500 mg 01/20/24 19:10 01/20/24 19:17 Cefuroxime Axetil 500 Mg Tablet PO 01/20/24 19:11 500 mg ONCE ONE Administration Medical Decision Making Medical Decision Making [facility] Narrative: 68 yo female with history of hypertension here with hematuria, dysuria x several days. No abdominal pain, flank pain, vomiting, fevers. No CVA tenderness or focal abdominal pain. Vitals are stable. Afebrile, tolerating p.o., will check UA Differential Diagnosis Differential Diagnoses: The differential diagnosis associated with the presentation includes UTI No flank pain or abdominal pain to suggest renal colic, pyelonephritis Admission/Observation Consideration of admission/observation: Escalation of care including admission/observation considered UA consistent with UTI. Patient nontoxic, afebrile, tolerating p.o. with no suggestion of pyelonephritis or renal colic suggest need for imaging, labs, admission. Lab Data [facility] Lab Attestation statement: I reviewed the patient's lab results. UA consistent with UTI Labs: Lab Results 01/20/24 Range/Units 18:55 Urine Color [place] A Urine Appearance Turbid Urine pH 5.5 (5.0-9.0) Ur Specific [place] >= 1.030 H (1.005-1.025) Urine Protein 100 (2+) H (Neg-Trace) mg/dL Urine Glucose (UA) Negative (Negative) mg/dL Urine Ketones Trace (Negative) mg/dL Urine Blood Large (3+) H (Negative) Urine Nitrite Negative (Negative) Ur Leukocyte Esterase Moderate (2+) H (Negative) Urine RBC >20 H (0-2) /HPF Urine WBC 21-50 H (0-5) /HPF Ur Squamous Epith Cells 11-20 (0-2) /HPF Urine Bacteria Trace (None Seen) Hyaline Casts 0-2 (0-2) /LPF Tests considered The following testing was considered but not selected: No focal abdominal pain, CVA tenderness suggest need for CT abdomen pelvis Prescription Management I considered prescription management with: Antibiotic Chronic Conditions Patient?s care impacted by: Hypertension Discharge Plan Discharge Clinical Impression: Urinary tract infection Patient Disposition: Home, Self-Care Instructions: Urinary Tract Infection in Women (ED) Additional Instructions: Increase fluids, rest Take the antibiotics as prescribed Return for fever, vomiting, severe back pain Prescriptions: New cefuroxime axetil 500 mg tablet 500 mg PO BID Qty: 14 0RF phenazopyridine [Pyridium] 200 mg tablet 200 mg PO TID PRN (Reason: pain) Qty: 6 0RF No Action atorvastatin 40 mg tablet 1 tab PO BEDTIME clonazepam 1 mg tablet 1 tab PO TID PRN (Reason: Anxiety) omeprazole 20 mg capsule,delayed release(DR/EC) 1 cap PO BID risperidone 0.5 mg tablet 1 tab PO BID oxycodone 5 mg tablet 1 tab PO Q12H PRN (Reason: pain) escitalopram oxalate 10 mg tablet 1 tab PO DAILY oxycodone [OxyContin] 10 mg tablet,oral only,ext.rel.12 hr 1 tab PO BID nifedipine 60 mg tablet extended release 24 hr 1 tab PO DAILY quetiapine 400 mg tablet 1 tab PO BEDTIME cholecalciferol (vitamin D3) 25 mcg (1,000 unit) tablet 1 tab PO DAILY bupropion HCl 150 mg Tablet Extended Release 24 Hr 150 mg PO DAILY Referrals: Bela Vasquez MD [Primary Care Provider] - 1 week Print Language: Turkmen
[2024-01-20 18:47] VITALS: BP 152/83; PULSE 84; RESP 18; TEMP 36; O2SAT 97; BMI 37.8
[2024-01-20 19:03] LABS: Appearance Urine Turbid; Color Urine Orange; Glucose Urine UA Negative (Negative); Leukocyte Esterase Urine Moderate (2+) (Negative); Nitrite Urine Negative (Negative); PH 5.5 (5.0-9.0); Specific Gravity - Urine >= 1.030 (1.005-1.025); UMIC TRIGGER UACC YES; Urine Blood Large (3+) (Negative); Urine Ketones Trace mg/dL (Negative); Urine Protein 100 (2+) mg/dL (Neg-Trace)
[2024-01-20 19:05] LABS: Bacteria Urine Trace (None Seen); Hyaline Casts Urine 0-2 /LPF (0-2); RBC Urine >20 /HPF (0-2); UACC Culture Trigger YES; WBC Urine 21-50 /HPF (0-5)
[2024-01-20 19:07] VITALS: BP 144/81; PULSE 96; RESP 16; TEMP 36.4; O2SAT 95
[2024-01-20] MEDS: cefuroxime axetiL 500 MG TABLET PO (19:17)
[2024-01-20 19:23] VITALS: BP 144/81; PULSE 96; RESP 16; TEMP 36.4; O2SAT 95
== END 2024-01-20 19:24 | disposition home or self-care (01) ==
LOC: HO.ED 19:13
PROVIDERS: Nurse Practitioner Family; Emergency Provider Emergency Medicine; PCP Family Medicine
DX: N39.0 Urinary tract infection, site not specified (principal); I10 Essential (primary) hypertension; E78.5 Hyperlipidemia, unspecified; K21.9 Gastro-esophageal reflux disease without esophagitis; Z79.02 Long term (current) use of antithrombotics/antiplatelets; Z79.899 Other long term (current) drug therapy
CPT/HCPCS: 81001; 81003; 87086; 99282; 99283

== ENCOUNTER 2024-02-14 12:22 | Emergency (ER) | payer OTHER, SELFPAY ==
[2024-02-14 19:51] LABS: Appearance Urine Turbid; Color Urine RED; Glucose Urine UA Negative (Negative); Leukocyte Esterase Urine Negative (Negative); Nitrite Urine Negative (Negative); PH 6.5 (5.0-9.0); UMIC TRIGGER UACC YES; Urine Blood Large (3+) (Negative); Urine Ketones Negative (Negative); Urine Protein 100 (2+) mg/dL (Neg-Trace)
[2024-02-14 19:54] LABS: Bacteria Urine Trace (None Seen); RBC Urine >20 /HPF (0-2); Squamous Epithelial Cell Urine 0-2 /HPF (0-2); WBC Urine 0-5 /HPF (0-5)
[2024-02-14 19:55] LABS: Hyaline Casts Urine 0-2 /LPF (0-2)
== END 2024-02-14 14:13 | disposition left against medical advice (07) ==
PROVIDERS: Internal Medicine Geriatric Medicine; Emergency Provider Emergency Medicine; PCP Family Medicine
DX: R30.0 Dysuria (principal); Z53.21 Procedure and treatment not carried out due to patient leaving prior to being seen by health care provider
CPT/HCPCS: 81001

== ENCOUNTER 2024-02-15 08:03 | Outpatient (REF) | payer OTHER, SELFPAY ==
[2024-02-15 11:24] LABS: MANUAL DIFF FLAG NO
[2024-02-15 11:36] LABS: Basophils Percent Auto 0.4 % (0-2); Eosinophils Absolute Auto 0.2 X10*3/uL (0.0-0.4); Eosinophils Percent Auto 1.5 % (0-4); Hematocrit 39.8 % (37.0-47.0); Hemoglobin 12.8 g/dl (12.0-16.0); Imm Gran Abs Auto 0.04 X10*3/uL (0.00-0.03); Imm Gran Pct Auto 0.4 % (0.0-0.4); Lymphocytes Absolute Auto 1.4 X10*3/uL (1.2-4.9); Lymphocytes Percent Auto 12.8 % (20-40); Mean Corpuscular HGB Conc 32.2 g/dl (31.0-35.0); Mean Corpuscular Hemoglobin 28.3 pg (27.0-33.0); Mean Corpuscular Volume 88.1 fL (80.0-98.0); Mean Platelet Volume 9.8 fL (9.4-12.3); Monocytes Absolute Auto 0.5 X10*3/uL (0.1-1.2); Monocytes Percent Auto 4.3 % (2-11); Neutrophils Absolute Auto 8.9 x10*3/uL (2.0-8.3); Neutrophils Percent Auto 80.6 % (45-73); Platelet Count 377 X10*3/uL (160-400); Red Blood Count 4.52 X10*6/uL (4.20-5.50); Red Cell Distribution Width 12.9 % (11.0-16.0)
[2024-02-15 11:55] LABS: Estimated Average Glucose 105 mg/dL; Hemoglobin A1c % 5.3 % (<6.0)
[2024-02-15 12:40] LABS: Cholesterol 152 mg/dL (<200); HDL Cholesterol 63 mg/dL (>40); LDL Cholesterol Calculated 58 mg/dL (<100); Triglycerides 159 mg/dL (<150)
[2024-02-15 12:43] LABS: Reflex LDLD? No
[2024-02-15 12:51] LABS: Alanine Aminotransferase 11 U/L (0-31); Albumin Level 4.4 g/dL (3.5-5.0); Alkaline Phosphatase 132 U/L (39-117); Anion Gap 14 (12-20); Aspartate Amino Transferase 13 U/L (5-31); Bilirubin Total 0.2 mg/dL (0.0-1.0); Blood Urea Nitrogen 15 mg/dL (9-16); Calcium 9.9 mg/dL (8.4-10.2); Carbon Dioxide 27 mmol/L (22-29); Chloride 108 mmol/L (96-108); Estimated Glomerular Filt Rate 52; Glucose Random 121 mg/dL (60-115); Potassium 3.9 mmol/L (3.3-5.1); Sodium 145 mmol/L (135-145); Total Protein 7.7 g/dL (6.5-8.0)
== END 2024-02-15 08:04 | disposition home or self-care (01) ==
LOC: HO.HHCL 08:03
PROVIDERS: Family Medicine; Visit Provider Internal Medicine Geriatric Medicine
DX: R31.0 Gross hematuria (principal); R30.0 Dysuria; I10 Essential (primary) hypertension; R73.01 Impaired fasting glucose
CPT/HCPCS: 36415; 80053; 80061; 83036; 85025

== ENCOUNTER 2024-02-16 11:38 | Emergency (ER) | payer OTHER, SELFPAY ==
--- NOTE | ~2024-02-16 | CT_ITS ---
EXAMINATION: CT ABDOMEN AND PELVIS WITHOUT CONTRAST CLINICAL INFORMATION: Bilateral flank pain. COMPARISON: 04/20/2022 TECHNIQUE: Multidetector volumetric imaging was performed from the superior aspect of the liver through the pubic symphysis. Sagittal and coronal reformatted images were obtained on the technologist's workstation. This CT examination was performed using dose optimization techniques as appropriate, variously including the following: *Automated exposure control *Adjustment of mA and/or kV according to patient size (this includes techniques or standardized protocols for targeted exams where dose is matched to indication/reason for exam; i.e. extremities or head) *Use of iterative reconstruction technique DLP: 769 mGy-cm FINDINGS: LUNG BASES: No pulmonary consolidation or pleural effusion. Old calcified granuloma in medial right lower lobe. HEPATOBILIARY: Liver has normal size, shape, and attenuation. Gallbladder is surgically absent. Common bile duct is chronically mildly dilated, 0.9 cm diameter, unchanged compared to 04/20/2022. PANCREAS: Chronic diffuse atrophy and fatty replacement of the pancreas. SPLEEN: Spleen is normal in size. A few small calcified granulomas are noted. ADRENAL GLANDS: Normal. KIDNEYS AND URETERS: Kidneys have normal size and cortical thickness. No perinephric fluid collection, urolithiasis or hydroureteronephrosis. BLADDER: Normal. BOWEL AND PERITONEUM: Prior Salomon fundoplication. No dilated bowel loops. There is no wall thickening at site of sigmoid anastomosis. No evidence of edematous thickening of bowel linton. No mesenteric fat stranding, free fluid or pneumoperitoneum. ABDOMINAL WALL: There is old postoperative midline scarring of the abdominal wall. VASCULATURE: Mild atherosclerosis of the abdominal aorta without aneurysm. LYMPH NODES: No pathologic sized lymph nodes in the abdomen or pelvis. No inguinal lymphadenopathy. PELVIC VISCERA: Status post hysterectomy. No adnexal mass or pelvic free fluid. MUSCULOSKELETAL: Prior discectomy and anterior fusion at L5-S1. No loosening of the L5-S1 posterior spinal fusion hardware. Facet arthropathy and chronic grade 1 anterolisthesis at L4-L5. Hemangioma of the T10 vertebral body. No suspicious osseous lesions. CT/CT abdomen pelvis wo IV con IMPRESSION: No specific source of abdominal/flank pain is identified. No acute imaging abnormalities compared to 04/20/2022. No urolithiasis or hydroureteronephrosis.
--- NOTE | 2024-02-16 11:44 | ED_ITS ---
HPI - General Adult General Chief complaint: Urogenital-Female Stated complaint: UTI Time Seen by Provider: 02/16/24 13:17 Source: patient, RN notes reviewed and old records reviewed Mode of arrival: ambulatory Limitations: no limitations History of Present Illness HPI narrative: 68 year old female with pmhx significant for hypertension presents to the ED today for evaluation of bilateral flank pain, increased urinary frequency, and dysuria x3 days. She was diagnosed with UTI on 02/14/24 and placed on cefixime which she has been taking as prescribed without relief. Endorses continued 06/11 bilateral flank pain with one episode of hematuria yesterday. No radiation. She has not been taking anything at home for pain. Admits to getting up multiple times last night due to urinary urgency.Denies fever, chills, N/V, vaginal discharge, abdominal pain, diarrhea, constipation. denies recent travel. denies injury/trauma. Related Data Home Medications ?Medication ?Instructions ?Recorded ?Confirmed atorvastatin 40 mg tablet 1 tab PO BEDTIME 07/14/20 04/20/22 clonazepam 1 mg tablet 1 tab PO TID PRN Anxiety 07/14/20 04/20/22 escitalopram oxalate 10 mg tablet 1 tab PO DAILY 07/14/20 04/20/22 omeprazole 20 mg capsule,delayed 1 cap PO BID 07/14/20 04/20/22 release oxycodone 10 mg tablet,crush 1 tab PO BID 07/14/20 04/20/22 resistant,extended release 12 hr (OxyContin) oxycodone 5 mg tablet 1 tab PO Q12H PRN pain 07/14/20 04/20/22 risperidone 0.5 mg tablet 1 tab PO BID 07/14/20 04/20/22 bupropion HCl 150 mg 24 hr tablet, 150 mg PO DAILY 12/31/21 04/20/22 extended release cholecalciferol (vitamin D3) 25 1 tab PO DAILY 12/31/21 04/20/22 mcg (1,000 unit) tablet nifedipine 60 mg tablet,extended 1 tab PO DAILY 12/31/21 04/20/22 release 24 hr quetiapine 400 mg tablet 1 tab PO BEDTIME 12/31/21 04/20/22 Previous Rx's ?Medication ?Instructions ?Recorded cefuroxime axetil 500 mg tablet 500 mg PO BID #14 tabs 01/20/24 phenazopyridine 200 mg tablet 200 mg PO TID PRN pain 6 doses #6 01/20/24 (Pyridium) tabs cefuroxime axetil 250 mg tablet 250 mg PO BID 7 days #14 tabs 02/16/24 phenazopyridine 200 mg tablet 200 mg PO TID 6 doses #6 tabs 02/16/24 (Pyridium) Allergies Allergy/AdvReac Type Severity Reaction Status Date / Time ibuprofen [From Motrin] Allergy Abdominal Verified 02/16/24 11:48 Pain Review of Systems 2 Review of Systems: Constitutional: No fever, chills, fatigue, night sweats, weight changes ENT/Mouth: No ear pain, hearing loss, nasal congestion, sinus pain, rhinorrhea, sore throat Eyes: No eye pain, swelling, redness, vision changes, discharge Cardio: No chest pain, palpitations, MENA, orthopnea, peripheral edema Pulm: No SOB, cough, sputum, wheezing, dyspnea, hemoptysis GI: No nausea, vomiting, hematemesis, abdominal pain, diarrhea, constipation, hematochezia, melena : No irregular bleeding, hesitancy, hematuria,urinary flow changes, urinary incontinence or retention, +urinary freq, +urinary urgency, +flank pain, +dysuria MSK: No back pain, neck pain, joint pain, myalgias Skin: No lesions, rashes Neuro: No weakness, numbness, paresthesias, LOC, dizziness, headache Psych: No anxiety/panic, depression, SI/HI, AH/VH All other systems reviewed and are negative. [facility] Past Medical History Attestation statement: The following information was validated with the patient. Source: old records reviewed and nursing notes reviewed Medical History Hx of renal calculi Asthma Elevated cholesterol HTN (hypertension) Depression Anxiety Hx of small bowel obstruction GERD (gastroesophageal reflux disease) Surgical History Hx of colonoscopy Hx of hysterectomy, total History of Salomon fundoplication Family History Family History Father PVD (peripheral vascular disease) Mother Depression Social History Social History Household Members: None Housing: Apartment Do you presently have visiting nurse or other home services: Yes Alcohol intake: never Patient Tobacco Use Status: Never used Tobacco Second Hand Smoke Exposure: No Advance Directives: Yes Advance Directives Information Provided: No Advance Directives on File: No Do you have a plan to hurt others: No Plan service: No Current occupational status: disabled Physical Exam ED Vital Signs: Vital Signs - 24 hr 02/16/24 11:45 Temperature 97.2 F Pulse Rate 85 Respiratory Rate 18 Blood Pressure 152/84 H Pulse Oximetry 97 Oxygen Delivery Method Room Air BMI result Body Mass Index 40.5 hypertensive, vitals otherwise wnl Const Other: uncomfortable appearing General: cooperative, healthy appearing and no acute distress Orientation/consciousness: patient oriented x3 Limitations: no limitations HENMT Head: Yes normal to inspection, Yes No palpable skull fracture present, Yes normocephalic and Yes atraumatic Eyes General: appearance normal, both eyes and all related structures Neck Neck: Yes normal visual inspection, Yes full ROM, Yes no lymphadenopathy and Yes no meningeal signs Resp Effort & Inspection: normal respiratory effort and able to speak in complete sentences Auscultation: clear to auscultation bilaterally Cardio Rate: regular rate Rhythm: regular rhythm GI Other: abdomen soft, ND/NT, no rebound or guarding. normoactive bs x4. General: Yes no CVA tenderness Back/Spine/Pelvis Other: No midline spinous tenderness or step off deformity. No paraspinal muscle tenderness. Back: no CVA tenderness Skin General skin exam: no rashes or lesions noted Neuro General: patient oriented x3, gait normal, tone normal, moves all extremities and no meningeal signs Course Course Course Narrative: This is an RME done by OLIVIA Thibodeaux: Additional HPI, ROS, PE not included below will be deferred to primary provider. 68 year old female hx of HTN presents w/ suprapubic discomfort, b/l flank pain X 2 days. Currently on ceftin for UTI but doesnt seem to be working. Reports pain 9/10. Also reports blood in urine initially which has resolved. Not on a blood thinner. UTIs have never felt like this before PE Basic RME: Appearance: Alert.? Oriented X3.? No acute cardiopulmonary distress distress.? Head: Normocephalic, atraumatic, no step-offs or deformities ENT: Pharynx normal.??External ears normal, TMs normal bilaterally and EAC's normal. No pain with manipulation of external ears bilaterally. No mastoid tenderness. Neck: Normal inspection.? Neck supple.? CVS: Pulses normal.? Respiratory: No respiratory distress.? Abdomen: Soft and nontender.? Skin: ? Normal skin color. Extremities: 5/5 strength to bilateral upper and lower extremities Back: No midline tenderness, no C-spine tenderness, full range of motion, + CVA tenderness bilaterally Neuro: Oriented X 3.? No motor deficit.? No sensory deficit. Reevaluation(s) Reevaluation #1: 1615-- CBC without leukocytosis or left shift. no anemia. h&h stable. chemistry without acute electrolyte abnormality requiring intervention. normal renal function. transaminitis. UA showing infection/ blood. ct abd/pelvis does not demonstrate obstructive stone, evidence of hydronephrosis. no concern for pyelo. will change antibiotic to ceftin for UTI treatment. pyridium sent to pharmacy for pain control. discussed all work up results with patient. reports complete pain resolution with pain control. sitting comfortably in bed. Patient has remained stable throughout ED visit today. Discussed worrisome signs and symptoms and when to return to the ED. All questions answered at this time. Patient is agreeable with disposition and stable for discharge. Medications Administered Discontinued Medications Generic Name Dose Route Start Last Admin Trade Name Freq PRN Reason Stop Dose Admin Hydromorphone HCl 0.5 mg 02/16/24 14:39 02/16/24 14:49 Hydromorphone Hcl 0.5 Mg/0.5 Ml Syringe IM 02/16/24 14:40 0.5 mg ONCE ONE Administration Protocol Sodium Chloride 1,000 mls @ 999 mls/hr 02/16/24 13:30 02/16/24 15:05 Ns IV 02/16/24 14:30 Infused .Q1H1M JORDAN Infusion Morphine Sulfate 4 mg 02/16/24 13:23 02/16/24 14:04 Morphine Sulfate 4 Mg/Ml Cartridge IVPUSH 02/16/24 13:24 4 mg ONCE ONE Administration Protocol Medical Decision Making Medical Decision Making MDM Narrative: 68 year old female with pmhx significant for hypertension presents to the ED today for evaluation of bilateral flank pain, increased urinary frequency, and dysuria x3 days. hypertensive, vitals otherwise wnl. sitting uncomfortably on the exam bed. on exam, skin w/d/i. abd is soft, nd/nt, no rebound or guarding. normoactive bs x4. no cvat b/l. ambulating w/ steady gait. No midline spinous tenderness or step off deformity. No paraspinal muscle tenderness. Differential diagnosis includes UTI, nephrolithiasis, renal colic, hydronephrosis, pyelonephritis, lumbar sprain/ strain. Plan for basic labs, UA, ct, pain control, and re-evaluation. Differential Diagnosis Differential Diagnoses: The differential diagnosis associated with the presentation includes as above. Admission/Observation Consideration of admission/observation: Escalation of care including admission/observation considered admission considered on arrival. Lab Data MDM Lab Attestation statement: I reviewed the patient's lab results. as above. 02/16/24 12:02 02/16/24 12:02 Labs: Lab Results 02/16/24 Range/Units 12:02 WBC 10.7 (4.8-10.8) X10*3/uL RBC 4.45 (4.20-5.50) X10*6/uL Hgb 12.7 (12.0-16.0) g/dl Hct 39.2 (37.0-47.0) % MCV 88.1 (80.0-98.0) fL MCH 28.5 (27.0-33.0) pg MCHC 32.4 (31.0-35.0) g/dl RDW 13.2 (11.0-16.0) % Plt Count 361 (160-400) X10*3/uL MPV 9.3 L (9.4-12.3) fL Immature Gran % (Auto) 0.3 (0.0-0.4) % Neut % (Auto) 68.2 (45-73) % Lymph % (Auto) 23.9 (20-40) % [place] % (Auto) 6.1 (2-11) % Eos % (Auto) 1.0 (0-4) % Baso % (Auto) 0.5 (0-2) % Lymph # (Auto) 2.6 (1.2-4.9) X10*3/uL [place] # (Auto) 0.7 (0.1-1.2) X10*3/uL Eos # (Auto) 0.1 (0.0-0.4) X10*3/uL Baso # (Auto) 0.1 (0.0-0.2) X10*3/uL Abs Immat Gran (auto) 0.03 (0.00-0.03) X10*3/uL Absolute Neuts (auto) 7.3 (2.0-8.3) x10*3/uL Absolute Nucleated RBC 0.000 (0.0-0.012) X10*3/uL Nucleated RBC % (auto) 0.0 (0.0-0.2) /100WBC Sodium 145 (135-145) mmol/L Potassium 3.6 (3.3-5.1) mmol/L Chloride 108 (96-108) mmol/L Carbon Dioxide 25 (22-29) mmol/L Anion Gap 16 (12-20) BUN 11 (9-16) mg/dL Creatinine 1.09 (0.5-1.4) mg/dL Estim Creat Clear Calc 53.4 Estimated GFR 50 Random Glucose 93 (60-115) mg/dL Calcium 9.9 (8.4-10.2) mg/dL Total Bilirubin 0.3 (0.0-1.0) mg/dL AST 15 (5-31) U/L ALT 12 (0-31) U/L Alkaline Phosphatase 120 H (39-117) U/L Total Protein 7.9 (6.5-8.0) g/dL Albumin 4.4 (3.5-5.0) g/dL Urine Color Dark Yellow Urine Appearance Turbid Urine pH 6.0 (5.0-9.0) Ur Specific [place] >= 1.030 H (1.005-1.025) Urine Protein 100 (2+) H (Neg-Trace) mg/dL Urine Glucose (UA) Negative (Negative) mg/dL Urine Ketones Trace (Negative) mg/dL Urine Blood Large (3+) H (Negative) Urine Nitrite Negative (Negative) Ur Leukocyte Esterase Moderate (2+) H (Negative) Urine RBC >20 H (0-2) /HPF Urine WBC 21-50 H (0-5) /HPF Ur Squamous Epith Cells >20 (0-2) /HPF Ur Transition Epith Cell Present Ur Renal Epithelial Cell Present Urine Bacteria Trace (None Seen) Hyaline Casts 3-5 (0-2) /LPF Independent Interpretation I performed an independent interpretation of an: CT Scan Interpretation: CT abd/pelvis does not demonstrate renal stone, agree with radiologist's interpretation. Radiology Impression Discussion of test interpretation with radiology: I have reviewed the radiologist's reading. Radiologist Impression: EXAMINATION: CT ABDOMEN AND PELVIS WITHOUT CONTRAST CLINICAL INFORMATION: Bilateral flank pain. COMPARISON: 04/20/2022 TECHNIQUE: Multidetector volumetric imaging was performed from the superior aspect of the liver through the pubic symphysis. Sagittal and coronal reformatted images were obtained on the technologist's workstation. This CT examination was performed using dose optimization techniques as appropriate, variously including the following: *Automated exposure control *Adjustment of mA and/or kV according to patient size (this includes techniques or standardized protocols for targeted exams where dose is matched to indication/reason for exam; i.e. extremities or head) *Use of iterative reconstruction technique DLP: 769 mGy-cm FINDINGS: LUNG BASES: No pulmonary consolidation or pleural effusion. Old calcified granuloma in medial right lower lobe. HEPATOBILIARY: Liver has normal size, shape, and attenuation. Gallbladder is surgically absent. Common bile duct is chronically mildly dilated, 0.9 cm diameter, unchanged compared to 04/20/2022. PANCREAS: Chronic diffuse atrophy and fatty replacement of the pancreas. SPLEEN: Spleen is normal in size. A few small calcified granulomas are noted. ADRENAL GLANDS: Normal. KIDNEYS AND URETERS: Kidneys have normal size and cortical thickness. No perinephric fluid collection, urolithiasis or hydroureteronephrosis. BLADDER: Normal. BOWEL AND PERITONEUM: Prior Salomon fundoplication. No dilated bowel loops. There is no wall thickening at site of sigmoid anastomosis. No evidence of edematous thickening of bowel linton. No mesenteric fat stranding, free fluid or pneumoperitoneum. ABDOMINAL WALL: There is old postoperative midline scarring of the abdominal wall. VASCULATURE: Mild atherosclerosis of the abdominal aorta without aneurysm. LYMPH NODES: No pathologic sized lymph nodes in the abdomen or pelvis. No inguinal lymphadenopathy. PELVIC VISCERA: Status post hysterectomy. No adnexal mass or pelvic free fluid. MUSCULOSKELETAL: Prior discectomy and anterior fusion at L5-S1. No loosening of the L5-S1 posterior spinal fusion hardware. Facet arthropathy and chronic grade 1 anterolisthesis at L4-L5. Hemangioma of the T10 vertebral body. No suspicious osseous lesions. CT/CT abdomen pelvis wo IV con IMPRESSION: No specific source of abdominal/flank pain is identified. No acute imaging abnormalities compared to 04/20/2022. No urolithiasis or hydroureteronephrosis. External Record Review External record reviewed: Inpatient record, Office record, Outpatient record, Prior outpatient labs, Prior outpatient radiology, Primary care record and Outside ED record Prescription Management I considered prescription management with: Pain Medication and Antibiotic (ceftin) Chronic Conditions Patient?s care impacted by: Hypertension Social Determinants Patient?s care significantly limited by Social Determinants of Health including: Other Social Determinant of Health Critical Care Time Critical Care Time Critical Care Time: Yes Total Critical Care Time: 61 Attestation: Critical care time in the amount of 61 minutes has been provided to the patient in terms of direct patient care, frequent reevaluation, review and interpretation of medical data and results, and management of potentially life- threatening conditions. This is all outside of any medical procedures. Discharge Plan Discharge Clinical Impression: Urinary tract infection, HTN (hypertension) Patient Disposition: Home, Self-Care Instructions: Urinary Tract Infection in Women (ED), Urinary Tract Infection in Older Adults (ED) Additional Instructions: Your urine today was positive for infection. STOP TAKING THE ANTIBIOTIC YOU ARE CURRENTLY TAKING THAT WAS PRESCRIBED TO 3 DAYS AGO. Levofloxacin as an antibiotic that has been sent to your pharmacy. Take this as prescribed and do not miss any doses. You must complete the entire course of antibiotics. If you do not, there is a risk of the infection coming back or worsening. Pyridium is an analgesic that can relieve the pain, burning, and discomfort caused by infection or irritation of the urinary tract. It is not an antibiotic and will not cure the infection itself. This has been sent to your pharmacy. Take this as needed for discomfort. Pyridium can cause your urine to turn a reddish orange color.? Follow up with your primary care provider as needed. If you develop a fever or new/ worsening symptoms call 911 or come back to the ER for further evaluation. Prescriptions: New cefuroxime axetil 250 mg tablet 250 mg PO BID 7 Days Qty: 14 0RF phenazopyridine [Pyridium] 200 mg tablet 200 mg PO TID Qty: 6 0RF No Action atorvastatin 40 mg tablet 1 tab PO BEDTIME clonazepam 1 mg tablet 1 tab PO TID PRN (Reason: Anxiety) omeprazole 20 mg capsule,delayed release(DR/EC) 1 cap PO BID risperidone 0.5 mg tablet 1 tab PO BID oxycodone 5 mg tablet 1 tab PO Q12H PRN (Reason: pain) escitalopram oxalate 10 mg tablet 1 tab PO DAILY oxycodone [OxyContin] 10 mg tablet,oral only,ext.rel.12 hr 1 tab PO BID nifedipine 60 mg tablet extended release 24 hr 1 tab PO DAILY quetiapine 400 mg tablet 1 tab PO BEDTIME cholecalciferol (vitamin D3) 25 mcg (1,000 unit) tablet 1 tab PO DAILY bupropion HCl 150 mg Tablet Extended Release 24 Hr 150 mg PO DAILY cefuroxime axetil 500 mg tablet 500 mg PO BID Qty: 14 0RF phenazopyridine [Pyridium] 200 mg tablet 200 mg PO TID PRN (Reason: pain) Qty: 6 0RF Referrals: [facility] [Primary Care Provider] - Interventions: ED Discharge Assessment Last Done: 02/16/24 16:35 Discharge Date/Time: 02/16/24 16:36 Print Language: Bulgarian
[2024-02-16 11:45] VITALS: BP 152/84; PULSE 85; RESP 18; TEMP 36.2; O2SAT 97; BMI 40.5
[2024-02-16 12:16] LABS: MANUAL DIFF FLAG NO
[2024-02-16 12:20] LABS: Basophils Absolute Auto 0.1 X10*3/uL (0.0-0.2); Basophils Percent Auto 0.5 % (0-2); Eosinophils Absolute Auto 0.1 X10*3/uL (0.0-0.4); Hematocrit 39.2 % (37.0-47.0); Hemoglobin 12.7 g/dl (12.0-16.0); Imm Gran Abs Auto 0.03 X10*3/uL (0.00-0.03); Imm Gran Pct Auto 0.3 % (0.0-0.4); Lymphocytes Absolute Auto 2.6 X10*3/uL (1.2-4.9); Lymphocytes Percent Auto 23.9 % (20-40); Mean Corpuscular HGB Conc 32.4 g/dl (31.0-35.0); Mean Corpuscular Hemoglobin 28.5 pg (27.0-33.0); Mean Corpuscular Volume 88.1 fL (80.0-98.0); Mean Platelet Volume 9.3 fL (9.4-12.3); Monocytes Absolute Auto 0.7 X10*3/uL (0.1-1.2); Monocytes Percent Auto 6.1 % (2-11); Neutrophils Absolute Auto 7.3 x10*3/uL (2.0-8.3); Neutrophils Percent Auto 68.2 % (45-73); Platelet Count 361 X10*3/uL (160-400); Red Blood Count 4.45 X10*6/uL (4.20-5.50); Red Cell Distribution Width 13.2 % (11.0-16.0); White Blood Count 10.7 X10*3/uL (4.8-10.8)
[2024-02-16 12:21] LABS: Appearance Urine Turbid; Color Urine Dark Yellow; Glucose Urine UA Negative (Negative); Leukocyte Esterase Urine Moderate (2+) (Negative); Nitrite Urine Negative (Negative); Specific Gravity - Urine >= 1.030 (1.005-1.025); UMIC TRIGGER UACC YES; Urine Blood Large (3+) (Negative); Urine Ketones Trace mg/dL (Negative); Urine Protein 100 (2+) mg/dL (Neg-Trace)
[2024-02-16 12:33] LABS: Alanine Aminotransferase 12 U/L (0-31); Albumin Level 4.4 g/dL (3.5-5.0); Alkaline Phosphatase 120 U/L (39-117); Anion Gap 16 (12-20); Aspartate Amino Transferase 15 U/L (5-31); Bacteria Urine Trace (None Seen); Bilirubin Total 0.3 mg/dL (0.0-1.0); Blood Urea Nitrogen 11 mg/dL (9-16); Calcium 9.9 mg/dL (8.4-10.2); Carbon Dioxide 25 mmol/L (22-29); Chloride 108 mmol/L (96-108); Creatinine Clr Calc Pharmacy 53.4; Estimated Glomerular Filt Rate 50; Glucose Random 93 mg/dL (60-115); Potassium 3.6 mmol/L (3.3-5.1); RBC Urine >20 /HPF (0-2); Renal Epithelial Cells Urine Present; Sodium 145 mmol/L (135-145); Squamous Epithelial Cell Urine >20 /HPF (0-2); Total Protein 7.9 g/dL (6.5-8.0); Transitional Epi Cells Urine Present; UACC Culture Trigger YES; WBC Urine 21-50 /HPF (0-5)
[2024-02-16 14:04] VITALS: BP 155/84; PULSE 74; RESP 16; O2SAT 97
[2024-02-16] MEDS: 0.9 % Sodium Chloride 1,000 ML 999 ML IV (14:04)
[2024-02-16] MEDS: Morphine Sulfate 4 MG/ML CARTRIDGE IVPUSH (14:04)
[2024-02-16 14:49] VITALS: RESP 16
[2024-02-16] MEDS: HYDROmorphone HCl 0.5 MG/0.5 ML SYRINGE IM (14:49)
[2024-02-16 16:00] VITALS: RESP 16
[2024-02-16 16:35] VITALS: BP 155/84; PULSE 84; RESP 16; TEMP 37; O2SAT 97
== END 2024-02-16 16:36 | disposition home or self-care (01) ==
PROVIDERS: Physician Assistant; Emergency Provider Emergency Medicine
DX: N39.0 Urinary tract infection, site not specified (principal); R30.0 Dysuria; R35.0 Frequency of micturition; R10.9 Unspecified abdominal pain; I10 Essential (primary) hypertension
CPT/HCPCS: 36415; 74176; 80053; 81001; 85025; 87086; 96361; 96372; 96374; 99284; J1170; J2270

== ENCOUNTER 2024-03-28 01:56 | Inpatient (IN) | payer OTHER, SELFPAY ==
[2024-03-28] VITALS (9 sets, daily range): BP systolic 113–135; BP diastolic 57–73; PULSE 71–102; RESP 13–18; TEMP 36–37.1; O2SAT 92–98; BMI 44.2; BMI 40.2
--- NOTE | ~2024-03-28 | XR_ITS ---
EXAMINATION: XR ABDOMEN KUB CLINICAL INDICATION: Follow-up SBO COMPARISON: CT scan 1 day earlier. TECHNIQUE: AP view of the abdomen. FINDINGS: Mildly dilated small bowel loops midabdomen left upper quadrant compatible with patient history of probably partial small bowel obstruction and/or ileus, there is contrast in the colon from recent CT scan, no evidence of free air. XR/XR KUB IMPRESSION: 1. Mildly dilated small bowel loops left upper quadrant compatible with patient history of probably partial small bowel obstruction and/or ileus. 2. Contrast passed through the small bowel into the colon.
--- NOTE | ~2024-03-28 | CT_ITS ---
EXAMINATION: CT ABDOMEN AND PELVIS WITH CONTRAST CLINICAL INFORMATION: Abdominal pain with history of bowel obstruction COMPARISON: CT abdomen pelvis 02/16/2024 TECHNIQUE: Multidetector volumetric images were obtained from the superior aspect of the liver through the pubic symphysis following administration 85 mL of Omnipaque 350 intravenous contrast. Sagittal and coronal reformatted images were obtained on the technologist's workstation. Oral contrast: No This CT examination was performed using dose optimization techniques as appropriate, variously including the following: *Automated exposure control *Adjustment of mA and/or kV according to patient size (this includes techniques or standardized protocols for targeted exams where dose is matched to indication/reason for exam; i.e. extremities or head) *Use of iterative reconstruction technique DLP: 923 mGy-cm FINDINGS: LUNG BASES: The visualized lung bases are unremarkable. LIVER, GALLBLADDER, AND BILIARY TREE: The liver is normal in size, shape, and attenuation. No focal hepatic lesion. Status post cholecystectomy with mild biliary prominence and prominent 0.9 cm bile duct which may be normal afterwards. PANCREAS: There is marked fatty replacement of the pancreas SPLEEN: Unremarkable. A calcified splenic granuloma is present. ADRENAL GLANDS: Unremarkable. KIDNEYS AND URETERS: The kidneys are normal in size, shape, and attenuation. No hydronephrosis, hydroureter, or calculi seen. No perinephric stranding. BLADDER: Unremarkable. GASTROINTESTINAL TRACT: A small paraesophageal hernia is present likely secondary to Salomon fundoplication. There is a sigmoid anastomosis without obstruction. There is small bowel obstruction with dilated proximal small bowel and fecalization with decompressed distal small bowel. The transition point is not seen exactly but is in the left mid anterior abdomen (see morris images). The appendix is not seen but there is no evidence of appendicitis evidence of appendicitis. ABDOMINAL WALL: No significant hernia is appreciated. LYMPH NODES: No retroperitoneal lymphadenopathy. VASCULAR: Unremarkable. PELVIC VISCERA: The uterus is not seen. An abnormal adnexal mass is not detected. No free intraperitoneal fluid is present. OSSEOUS STRUCTURES: Degenerative changes are present at L4-L5 with posterior fixation at L5-S1. Is a hemangioma in the T10 vertebral body. CT/CT abdomen pelvis w IV con IMPRESSION: 1. Early small bowel obstruction with transition point in the left mid anterior abdomen. 2. Incidental note made of cholecystectomy, sigmoid anastomosis, marked fatty replacement of the pancreas, hysterectomy and degenerative changes in the spine. Fleischner guidelines were followed.
--- NOTE | 2024-03-28 06:28 | ED_ITS ---
HPI - General Adult General Chief complaint: Abdominal Pain Stated complaint: abd pain Time Seen by Provider: 03/28/24 06:28 Source: patient and EMS Mode of arrival: EMS Limitations: no limitations History of Present Illness ED Provider: Jennifer Bauman PA-C HPI narrative: Patient is a 68 year old assigned female at with a history of SBO, colectomy many years ago, and HTN presenting to the emergency department today with sudden onset and worsening abdominal pain. Patient states that since 10pm on 03/27/2024 she has had abdominal pain that has only gotten worse as time has gone on. Patient states that this feels similar to the last time she had a bowel obstruction. Patient states that she had vomiting this morning. Patient denies any dizziness, lightheadedness, fever, chills, blurry vision, double vision, loss of vision, chest pain, difficulty breathing, shortness of breath, back pain, night sweats, pain with urination, increased urinary frequency, increased urinary urgency, blood in her urine or stool, syncope or a near syncopal episode, recent trauma or falls, bowel incontinence, bladder incontinence, or any other complaints at this time. Onset (ago): hour(s) Location: abdomen Severity: moderate Severity scale (1-10): 6 Quality: aching Pain Consistency: constant Relieving factors: none Exacerbating factors: none Associated symptoms: nausea/vomiting Treatments prior to arrival: none Related Data Home Medications ?Medication ?Instructions ?Recorded ?Confirmed atorvastatin 40 mg tablet 1 tab PO BEDTIME 07/14/20 03/28/24 clonazepam 1 mg tablet 1 tab PO TID PRN Anxiety 07/14/20 03/28/24 escitalopram oxalate 10 mg tablet 1 tab PO DAILY 07/14/20 03/28/24 omeprazole 20 mg capsule,delayed 1 cap PO DAILY@0630 07/14/20 03/28/24 release oxycodone 10 mg tablet,crush 1 tab PO BID 07/14/20 03/28/24 resistant,extended release 12 hr (OxyContin) oxycodone 5 mg tablet 1 tab PO Q12H PRN pain 07/14/20 03/28/24 risperidone 0.5 mg tablet 1 tab PO BID 07/14/20 03/28/24 bupropion HCl 150 mg 24 hr tablet, 150 mg PO DAILY 12/31/21 03/28/24 extended release cholecalciferol (vitamin D3) 25 1 tab PO DAILY 12/31/21 03/28/24 mcg (1,000 unit) tablet nifedipine 60 mg tablet,extended 1 tab PO BEDTIME 12/31/21 03/28/24 release 24 hr quetiapine 400 mg tablet 1 tab PO BEDTIME 12/31/21 03/28/24 bisacodyl 5 mg tablet 5 mg PO DAILY 03/28/24 03/28/24 Allergies Allergy/AdvReac Type Severity Reaction Status Date / Time amlodipine Allergy Mild Unknown Verified 03/28/24 08:07 carvedilol Allergy Mild Unknown Verified 03/28/24 08:07 chlorthalidone Allergy Mild Unknown Verified 03/28/24 08:07 diltiazem Allergy Mild Unknown Verified 03/28/24 08:07 lisinopril Allergy Mild Unknown Verified 03/28/24 08:07 NSAIDS (Non-Steroidal Allergy Mild Unknown Verified 03/28/24 08:07 Anti-Inflamma ibuprofen [From Motrin] Allergy Abdominal Verified 03/28/24 08:07 Pain Review of Systems 2 Constitutional: Constitutional: Reports no additional constitutional complaints, Denies chills, Denies fever(s) and Denies night sweats Eyes: Eyes: Reports no additional eye complaints, Denies blurry vision, Denies change in vision, Denies diplopia, Denies eye discharge, Denies loss of vision and Denies eye pain ENT: Denies dizziness Cardiovascular: Cardiovascular: Reports no additional cardiovascular complaints, Denies chest pain, Denies lightheadedness, Denies Loss of Consciousness and Denies dyspnea Respiratory: Respiratory: Reports no additional respiratory complaints and Denies dyspnea Gastrointestinal: Gastrointestinal: Reports no additional gastrointestinal complaints, Reports abdominal pain, Denies melena, Denies hematochezia, Denies change in bowel habits, Denies change in stool character, Reports nausea and Reports vomiting Genitourinary: Genitourinary: Denies hematuria, Denies urinary frequency, Denies dysuria, Denies urinary incontinence, Denies urinary hesitancy and Denies urinary urgency Musculoskeletal: Musculoskeletal: Reports no additional musculoskeletal complaints, Denies numbness and Denies tingling Neurologic: Denies dizziness, Denies loss of vision, Denies numbness and Denies tingling Psychiatric: Psychiatric: Reports no additional psychiatric complaints Endocrine: Endocrine: Reports no additional endocrine complaints Hematologic/Lymphatic: Hematologic/Lymphatic: Reports no additional hematologic/lymphatic complaints Allergic/Immunologic: Allergic/Immunologic: Reports no additional allergic/immunologic complaints PMFSH Past Medical History Attestation statement: The following information was validated with the patient. Source: old records reviewed and nursing notes reviewed Medical History (Updated 03/28/24 @ 13:25 by Ana Bal PA-C) Hx of renal calculi Asthma Elevated cholesterol HTN (hypertension) Depression Anxiety Hx of small bowel obstruction GERD (gastroesophageal reflux disease) Surgical History (Updated 03/28/24 @ 13:20 by Ana Bal PA-C) S/P cholecystectomy Hx of exploratory laparotomy (11/2016) History of colon surgery Hx of colonoscopy Hx of hysterectomy, total History of Salomon fundoplication Family History Family History Father PVD (peripheral vascular disease) Mother Depression Social History Social History Household Members: None Housing: Apartment Do you presently have visiting nurse or other home services: Yes Alcohol intake: never Patient Tobacco Use Status: Never used Tobacco Smoked in Last 30 Days: No Second Hand Smoke Exposure: No Use of substances other than those prescribed or required for medical reasons: No Advance Directives: No Advance Directives Information Provided: No Do you have a plan to hurt others: No Plan service: No Current occupational status: disabled Physical Exam ED Vital Signs: Vital Signs - 24 hr 03/28/24 02:13 03/28/24 05:00 03/28/24 07:53 Temperature 97.7 F 98.8 F 98.2 F Pulse Rate 102 H 87 84 Respiratory Rate 18 18 14 Blood Pressure 128/68 130/70 127/73 Pulse Oximetry 98 96 92 Oxygen Delivery Method Room Air Room Air Room Air 03/28/24 10:15 03/28/24 12:47 Temperature 98.3 F Pulse Rate 82 81 Respiratory Rate 14 17 Blood Pressure 129/66 114/57 L Pulse Oximetry 93 Oxygen Delivery Method Room Air Room Air BMI result Body Mass Index 44.2 Const General: cooperative, no acute distress, alert and awake Nutritional Appearance: well nourished Orientation/consciousness: patient oriented x3 Limitations: no limitations HENMT Head: Yes normal to inspection and Yes atraumatic Ears: hearing grossly normal bilaterally and external ears normal General nose exam: Normal external nose present, no nasal discharge noted and no epistaxis Face and sinus: Yes normal facial exam, No abrasion and No laceration Mouth: Normal oral and palatal mucosa present, no drooling and no muffled voice Eyes General: appearance normal, both eyes and all related structures Periorbital: periorbital findings normal Eyelids: Yes eyelids normal Conjunctivae: conjunctivae normal Pupils: Equal, round and reactive pupils present EOM: EOMs intact bilaterally Neck Neck: Yes normal visual inspection, Yes full ROM and Yes no lymphadenopathy Chest Chest palpation & inspection: normal inspection of the chest Resp Effort & Inspection: normal respiratory effort and able to speak in complete sentences GI Inspection: Yes normal to inspection Palpation (GI): Soft to palpation, not firm, Tenderness to palpation present (GI) other (diffuse), no guarding and not rigid Neuro General: patient oriented x3 and moves all extremities Cranial nerves: Yes Equal, round and reactive pupils present Cognition (Neuro): normal cognition Motor exam (neuro): 5/5 motor strength present throughout Sensory Exam: Normal double simultaneous stimulation for sensation Coordination: [id number] test normal Extrem General: Yes normal to inspection, Yes full ROM and Yes capillary refill normal Psych Appearance: grossly normal Mental Status: mental status grossly normal Affect: normal affect Attitude: cooperative Thought process: Normal thought process present Thought content: Normal thought content present Insight: Good insight present (Psych) Medications Administered Generic Name Dose Route Start Last Admin Trade Name Freq PRN Reason Stop Dose Admin Lactated Ringer's 1,000 mls @ 100 mls/hr 03/28/24 13:00 03/28/24 13:18 Lr IVCONT 100 mls/hr .Q10H JORDAN Administration Discontinued Medications Generic Name Dose Route Start Last Admin Trade Name Freq PRN Reason Stop Dose Admin Diatrizoate Meglum/Diatrizoate Sod 30 ml 03/28/24 10:09 03/28/24 10:10 Diatrizoate Meglumine, Sodium 30 Ml Solution PO 03/28/24 10:10 30 ml ONCE ONE Administration Diazepam 2.5 mg 03/28/24 10:33 03/28/24 11:00 Diazepam 10 Mg/2 Ml Cartridge IVPUSH 03/28/24 10:34 2.5 mg STAT STA Administration Hydromorphone HCl 1 mg 03/28/24 06:38 03/28/24 06:55 Hydromorphone Hcl 1 Mg/Ml Syringe IVPUSH 03/28/24 06:39 1 mg ONCE ONE Administration Protocol Hydromorphone HCl 1 mg 03/28/24 08:36 03/28/24 08:51 Hydromorphone Hcl 1 Mg/Ml Syringe IVPUSH 03/28/24 08:37 1 mg ONCE ONE Administration Protocol Hydromorphone HCl 1.5 mg 03/28/24 11:48 03/28/24 11:54 Hydromorphone Hcl 2 Mg/Ml Vial IVPUSH 03/28/24 11:49 1.5 mg ONCE ONE Administration Protocol Iohexol 100 ml 03/28/24 10:09 03/28/24 10:09 Iohexol 350 Mg/Ml 100 Ml Infus..Btl IV 03/28/24 10:10 85 ml ONCE ONE Administration Ondansetron HCl 4 mg 03/28/24 06:38 03/28/24 06:55 Ondansetron Hcl 4 Mg/2 Ml Vial IVPUSH 03/28/24 06:39 4 mg ONCE ONE Administration Medical Decision Making Medical Decision Making MDM Narrative: Patient is a 68 year old assigned female at with a history of SBO, HTN, and colectomy presenting to the emergency department today with abdominal pain. Patient's physical exam was as noted in the physical exam portion of this note. Patient's blood work showed an elevated WBC count of 14.5 but were otherwise unremarkable. Patient's CT abdomen/pelvis showed a SBO. I spoke to the surgical team who recommended admission to their service. I explained my physical exam findings as well as all test results to the patient. I answered all questions asked by the patient. Patient received several doses of IV pain medication while in the department which she stated helped her pain somewhat. Patient verbalized agreement and understanding with this treatment plan and admission. Differential Diagnosis Differential Diagnoses: The differential diagnosis associated with the presentation includes Small bowel obstruction SBO Abdominal pain Admission/Observation Consideration of admission/observation: Escalation of care including admission/observation considered Patient admitted. Consult Healthcare Provider Management of the patient was discussed with: Personalized Living Assistant (spoke to the surgical team as noted in the MDM Rationale portion of this note.) Lab Data [facility] Lab Attestation statement: I reviewed the patient's lab results. My interpretation of these results are in the MDM Rationale portion of this note. 03/28/24 08:20 03/28/24 08:20 Labs: Lab Results 03/28/24 03/28/24 Range/Units 08:20 09:01 WBC 14.5 H (4.8-10.8) X10*3/uL RBC 4.70 (4.20-5.50) X10*6/uL Hgb 13.4 (12.0-16.0) g/dl Hct 41.1 (37.0-47.0) % MCV 87.4 (80.0-98.0) fL MCH 28.5 (27.0-33.0) pg MCHC 32.6 (31.0-35.0) g/dl RDW 12.9 (11.0-16.0) % Plt Count 355 (160-400) X10*3/uL MPV 9.2 L (9.4-12.3) fL Immature Gran % (Auto) 0.4 (0.0-0.4) % Neut % (Auto) 81.3 H (45-73) % Lymph % (Auto) 12.1 L (20-40) % Brantley % (Auto) 4.8 (2-11) % Eos % (Auto) 1.1 (0-4) % Baso % (Auto) 0.3 (0-2) % Lymph # (Auto) 1.8 (1.2-4.9) X10*3/uL Brantley # (Auto) 0.7 (0.1-1.2) X10*3/uL Eos # (Auto) 0.2 (0.0-0.4) X10*3/uL Baso # (Auto) 0.0 (0.0-0.2) X10*3/uL Abs Immat Gran (auto) 0.06 H (0.00-0.03) X10*3/uL Absolute Neuts (auto) 11.8 H (2.0-8.3) x10*3/uL Absolute Nucleated RBC 0.000 (0.0-0.012) X10*3/uL Nucleated RBC % (auto) 0.0 (0.0-0.2) /100WBC Sodium 141 (135-145) mmol/L Potassium 4.1 (3.3-5.1) mmol/L Chloride 104 (96-108) mmol/L Carbon Dioxide 28 (22-29) mmol/L Anion Gap 13 (12-20) BUN 12 (9-16) mg/dL Creatinine 1.27 (0.5-1.4) mg/dL Estim Creat Clear Calc 48.2 Estimated GFR 42 Random Glucose 125 H (60-115) mg/dL Lactic Acid 1.3 (0.5-2.0) mmol/L Calcium 9.9 (8.4-10.2) mg/dL Total Bilirubin 0.3 (0.0-1.0) mg/dL AST 20 (5-31) U/L ALT 34 H (0-31) U/L Alkaline Phosphatase 162 H (39-117) U/L Total Protein 7.6 (6.5-8.0) g/dL Albumin 4.2 (3.5-5.0) g/dL Independent Interpretation I performed an independent interpretation of an: CT Scan Interpretation: My interpretation is in agreement with the radiologist's impression of this imaging study. - EXAMINATION: CT ABDOMEN AND PELVIS WITH CONTRAST CLINICAL INFORMATION: Abdominal pain with history of bowel obstruction COMPARISON: CT abdomen pelvis 02/16/2024 TECHNIQUE: Multidetector volumetric images were obtained from the superior aspect of the liver through the pubic symphysis following administration 85 mL of Omnipaque 350 intravenous contrast. Sagittal and coronal reformatted images were obtained on the technologist's workstation. Oral contrast: No This CT examination was performed using dose optimization techniques as appropriate, variously including the following: *Automated exposure control *Adjustment of mA and/or kV according to patient size (this includes techniques or standardized protocols for targeted exams where dose is matched to indication/reason for exam; i.e. extremities or head) *Use of iterative reconstruction technique DLP: 923 mGy-cm FINDINGS: LUNG BASES: The visualized lung bases are unremarkable. LIVER, GALLBLADDER, AND BILIARY TREE: The liver is normal in size, shape, and attenuation. No focal hepatic lesion. Status post cholecystectomy with mild biliary prominence and prominent 0.9 cm bile duct which may be normal afterwards. PANCREAS: There is marked fatty replacement of the pancreas SPLEEN: Unremarkable. A calcified splenic granuloma is present. ADRENAL GLANDS: Unremarkable. KIDNEYS AND URETERS: The kidneys are normal in size, shape, and attenuation. No hydronephrosis, hydroureter, or calculi seen. No perinephric stranding. BLADDER: Unremarkable. GASTROINTESTINAL TRACT: A small paraesophageal hernia is present likely secondary to Salomon fundoplication. There is a sigmoid anastomosis without obstruction. There is small bowel obstruction with dilated proximal small bowel and fecalization with decompressed distal small bowel. The transition point is not seen exactly but is in the left mid anterior abdomen (see morris images). The appendix is not seen but there is no evidence of appendicitis evidence of appendicitis. ABDOMINAL WALL: No significant hernia is appreciated. LYMPH NODES: No retroperitoneal lymphadenopathy. VASCULAR: Unremarkable. PELVIC VISCERA: The uterus is not seen. An abnormal adnexal mass is not detected. No free intraperitoneal fluid is present. OSSEOUS STRUCTURES: Degenerative changes are present at L4-L5 with posterior fixation at L5-S1. Is a hemangioma in the T10 vertebral body. CT/CT abdomen pelvis w IV con IMPRESSION: 1. Early small bowel obstruction with transition point in the left mid anterior abdomen. 2. Incidental note made of cholecystectomy, sigmoid anastomosis, marked fatty replacement of the pancreas, hysterectomy and degenerative changes in the spine. Fleischner guidelines were followed. Dictated By: Lenny Huber MD Signed By: Electronically signed by Lenny Huber MD 03/28/24 1257 Radiology Impression Discussion of test interpretation with radiology: I have reviewed the radiologist's reading. Independent Historian Clinical information obtained from an independent historian. History obtained from or confirmed by: EMS (EMS provided additional history and confirmed the history provided by the patient.) Chronic Conditions Patient?s care impacted by: Hypertension Critical Care Time Critical Care Time Critical Care Time: Yes Total Critical Care Time: 48 Attestation: I spent 48 minutes of Critical Care Time with this patient. This does not include time spent on separately reported billable procedures. Discharge Plan Discharge Clinical Impression: Bowel obstruction Patient Disposition: Admitted As Inpatient Interventions: Admission Worksheet (ED) Last Done: 03/28/24 13:25
[2024-03-28] MEDS: ondansetron HCL 4 MG/2 ML VIAL IVPUSH (06:55)
[2024-03-28] MEDS: HYDROmorphone HCl 1 MG/ML SYRINGE IVPUSH ×2 (06:55→08:51)
--- NOTE | 2024-03-28 08:09 | PC.NURSE ---
this RN resumed care of pt at 0645. a&ox4. vss and up to date. nsr on the phototypesetting equipment monitor. pt presents to ED w/ sudden onset generalized abd pain that woke her up from her sleep around 2300. pt verbalizing pain radiates to back bilaterally. rating pain an 8/10 s/p medication administered by previous RN. previous RN placed 20gIV in the right AC - patent/intact. pt currently waiting for CT results at this time. pt requesting to eat food but instructed importance of remaining NPO at this time. no sob/wob noted. respirations even/unlabored. plan of care ongoing. call coleman placed within reach.
--- NOTE | 2024-03-28 08:23 | PC.NURSE ---
labs obtained/sent to lab by [facility].
[2024-03-28 08:24] LABS: MANUAL DIFF FLAG NO
[2024-03-28 08:27] LABS: Basophils Percent Auto 0.3 % (0-2); Eosinophils Absolute Auto 0.2 X10*3/uL (0.0-0.4); Eosinophils Percent Auto 1.1 % (0-4); Hematocrit 41.1 % (37.0-47.0); Hemoglobin 13.4 g/dl (12.0-16.0); Imm Gran Abs Auto 0.06 X10*3/uL (0.00-0.03); Imm Gran Pct Auto 0.4 % (0.0-0.4); Lymphocytes Absolute Auto 1.8 X10*3/uL (1.2-4.9); Lymphocytes Percent Auto 12.1 % (20-40); Mean Corpuscular HGB Conc 32.6 g/dl (31.0-35.0); Mean Corpuscular Hemoglobin 28.5 pg (27.0-33.0); Mean Corpuscular Volume 87.4 fL (80.0-98.0); Mean Platelet Volume 9.2 fL (9.4-12.3); Monocytes Absolute Auto 0.7 X10*3/uL (0.1-1.2); Monocytes Percent Auto 4.8 % (2-11); Neutrophils Absolute Auto 11.8 x10*3/uL (2.0-8.3); Neutrophils Percent Auto 81.3 % (45-73); Platelet Count 355 X10*3/uL (160-400); Red Cell Distribution Width 12.9 % (11.0-16.0); White Blood Count 14.5 X10*3/uL (4.8-10.8)
[2024-03-28 08:46] LABS: Alanine Aminotransferase 34 U/L (0-31); Albumin Level 4.2 g/dL (3.5-5.0); Alkaline Phosphatase 162 U/L (39-117); Anion Gap 13 (12-20); Aspartate Amino Transferase 20 U/L (5-31); Bilirubin Total 0.3 mg/dL (0.0-1.0); Blood Urea Nitrogen 12 mg/dL (9-16); Calcium 9.9 mg/dL (8.4-10.2); Carbon Dioxide 28 mmol/L (22-29); Chloride 104 mmol/L (96-108); Creatinine Clr Calc Pharmacy 48.2; Estimated Glomerular Filt Rate 42; Glucose Random 125 mg/dL (60-115); Potassium 4.1 mmol/L (3.3-5.1); Sodium 141 mmol/L (135-145); Total Protein 7.6 g/dL (6.5-8.0)
--- NOTE | 2024-03-28 09:14 | PC.NURSE ---
pt verbalizing increase in abd pain. rating it a 9/10. provider notified/aware. pt medicated per provider order. effectiveness pending.
[2024-03-28 09:41] LABS: Lactic Acid 1.3 mmol/L (0.5-2.0)
[2024-03-28] MEDS: iohexoL 350 MG/ML 100 ML INFUS..BTL IV (10:09)
[2024-03-28] MEDS: Diatrizoate Meglumine, Sodium 30 ML SOLUTION PO (10:10)
[2024-03-28] MEDS: diazePAM 10 MG/2 ML CARTRIDGE 2.5 MG IVPUSH (11:00)
[2024-03-28] MEDS: HYDROmorphone HCl 2 MG/ML VIAL 1.5 MG IVPUSH (11:54)
--- NOTE | 2024-03-28 12:59 | P.HPGS_ITS ---
History of Present Illness History of Present Illness Date of Service: 03/28/24 Chief complaint: SBO Narrative: Delphine Martínez is a 68 year old female with PMH significant for hypertension, depression, hypercholesterolemia, CKD, asthma, chronic back pain on chronic narcotics who presented with abdominal pain for 5 days. Patient reports she developed epigastric abdominal pain on Monday. This was low intensity however became severe last night and became more diffuse. The pain was associated with nausea and vomiting. She reports passing flatus yesterday but not today and last normal BM was two days ago however she normally is constipated. Due to the severity of pain, she called EMS and presented to the ED. Work up included CBC, BMP, LFTs which was significant for 14.5 and Cr of 1.27 which is slightly elevated from baseline. Lactic acid was normal. CT scan was obtained which was s ignificant for dilated proximal small bowel and fecalization with decompressed distal small bowel with possible transition point left mid abdomen. She has been previously admitted to [facility] for SBOs that resolved with conservative management, last episode in 2021. Last colonoscopy here in 2021 was normal. She has an extensive surgical history and details are uncertain but seems have included a sigmoid resection for sigmoid volvulus, possible ostomy, ex lap with drainage of intraabdominal abscess, ex lap colostomy reversal with primary colorectal anastomosis and parastomal hernia repair at [facility]. She also has had hysterectomy, cholecystectomy and salomon fundoplication. She has not vomited since this morning. She feels overall improved. Review of Systems Constitutional: Constitutional: Denies chills and Denies fever(s) ENT: Denies dizziness Cardiovascular: Cardiovascular: Denies chest pain and Denies dyspnea Respiratory: Respiratory: Denies cough and Denies dyspnea Gastrointestinal: Gastrointestinal: Reports as per HPI, Denies melena, Denies change in bowel habits, Denies coffee ground emesis, Denies diarrhea and Denies hematemesis Genitourinary: Genitourinary: Denies dysuria Integumentary/Breasts: Skin/Breast: Denies rash and Denies jaundice Neurologic: Denies dizziness [facility] Past Medical History Medical History (Updated 03/28/24 @ 13:25 by Ana Bal PA-C) Hx of renal calculi Asthma Elevated cholesterol HTN (hypertension) Depression Anxiety Hx of small bowel obstruction GERD (gastroesophageal reflux disease) Family History Family History Father PVD (peripheral vascular disease) Mother Depression Surgical History Surgical History (Updated 03/28/24 @ 13:20 by Ana Bal PA-C) S/P cholecystectomy Hx of exploratory laparotomy (11/2016) History of colon surgery Hx of colonoscopy Hx of hysterectomy, total History of Salomon fundoplication Social History Social History Household Members: None Housing: Apartment Do you presently have visiting nurse or other home services: Yes Alcohol intake: never Patient Tobacco Use Status: Never used Tobacco Smoked in Last 30 Days: No Second Hand Smoke Exposure: No Use of substances other than those prescribed or required for medical reasons: No Advance Directives: No Advance Directives Information Provided: No Do you have a plan to hurt others: No Plan service: No Current occupational status: disabled Meds Allergies Allergy/AdvReac Type Severity Reaction Status Date / Time amlodipine Allergy Mild Unknown Verified 03/28/24 08:07 carvedilol Allergy Mild Unknown Verified 03/28/24 08:07 chlorthalidone Allergy Mild Unknown Verified 03/28/24 08:07 diltiazem Allergy Mild Unknown Verified 03/28/24 08:07 lisinopril Allergy Mild Unknown Verified 03/28/24 08:07 NSAIDS (Non-Steroidal Allergy Mild Unknown Verified 03/28/24 08:07 Anti-Inflamma ibuprofen [From Motrin] Allergy Abdominal Verified 03/28/24 08:07 Pain Active Medications: Current Medications Acetaminophen (Acetaminophen 325 Mg Tablet) 650 mg PO Q6H PRN PRN Reason: Pain, Mild (Pain Scale 1-3), fever or headache Heparin Sodium (Porcine) (Heparin Sodium,Porcine 5,000 Unit/Ml Vial) 5,000 unit SUBCUT Q8H JORDAN Hydromorphone HCl (Hydromorphone Hcl 1 Mg/Ml Syringe) 0.5 mg IVPUSH Q3H PRN; Protocol PRN Reason: Pain, Severe (Pain Scale 7-10) Ondansetron HCl (Ondansetron Hcl 4 Mg/2 Ml Vial) 4 mg IVPUSH Q8H PRN PRN Reason: Nausea and Vomiting Sodium Chloride (0.9 % Sodium Chloride Flush 3 Ml Syringe) 3 ml IVFLUSH QSHIFT [facility] Home Medications ?Medication ?Instructions ?Recorded ?Confirmed ?Last Taken ?Type atorvastatin 40 mg tablet 1 tab PO BEDTIME 07/14/20 04/20/22 04/19/22 History clonazepam 1 mg tablet 1 tab PO TID PRN Anxiety 07/14/20 04/20/22 Unknown History escitalopram oxalate 10 mg tablet 1 tab PO DAILY 07/14/20 04/20/22 04/19/22 History omeprazole 20 mg capsule,delayed 1 cap PO BID 07/14/20 04/20/22 04/19/22 History release oxycodone 10 mg tablet,crush 1 tab PO BID 07/14/20 04/20/22 04/20/22 History resistant,extended release 12 hr (OxyContin) oxycodone 5 mg tablet 1 tab PO Q12H PRN pain 07/14/20 04/20/22 04/20/22 History risperidone 0.5 mg tablet 1 tab PO BID 07/14/20 04/20/22 04/19/22 History bupropion HCl 150 mg 24 hr tablet, 150 mg PO DAILY 12/31/21 04/20/22 04/19/22 History extended release cholecalciferol (vitamin D3) 25 1 tab PO DAILY 12/31/21 04/20/22 04/19/22 History mcg (1,000 unit) tablet nifedipine 60 mg tablet,extended 1 tab PO DAILY 12/31/21 04/20/22 04/19/22 History release 24 hr quetiapine 400 mg tablet 1 tab PO BEDTIME 12/31/21 04/20/22 04/19/22 History Physical Exam Vital Signs: Vital Signs: Last Vital Signs Temp 98.3 F 03/28/24 10:15 Pulse 81 03/28/24 12:47 Resp 17 03/28/24 12:47 BP 114/57 L 03/28/24 12:47 Pulse Ox 93 03/28/24 10:15 O2 Del Method Room Air 03/28/24 12:47 BMI result Body Mass Index 44.2 Const: General: comfortable, no acute distress and alert Nutritional Appearance: obese Orientation/consciousness: patient oriented x3 Resp: Effort & Inspection: normal respiratory effort Cardio: Rate: regular rate GI: Inspection: Yes distended and Yes scar (midline scars ) Palpation (GI): Soft to palpation, Tenderness to palpation present (GI) (diffuse, mild, i ncreased on left side ), no guarding and not rigid Percussion: Yes tympanic to percussion Skin: General skin exam: no rashes or lesions noted Neuro: General: patient oriented x3 and moves all extremities Results Results Labs: Short CBC 03/28/24 Range/Units 08:20 WBC 14.5 H (4.8-10.8) X10*3/uL Hgb 13.4 (12.0-16.0) g/dl Hct 41.1 (37.0-47.0) % Plt Count 355 (160-400) X10*3/uL BMP 03/28/24 08:20 Sodium 141 Potassium 4.1 Chloride 104 Carbon Dioxide 28 BUN 12 Creatinine 1.27 Calcium 9.9 Liver Function 03/28/24 Range/Units 08:20 Total Bilirubin 0.3 (0.0-1.0) mg/dL AST 20 (5-31) U/L ALT 34 H (0-31) U/L Alkaline Phosphatase 162 H (39-117) U/L Albumin 4.2 (3.5-5.0) g/dL Abdomen CT scan report/results: report reviewed and image reviewed Assessment and Plan (1) SBO (small bowel obstruction): Status: Acute Plan Delphine Martínez is a 68 year old female with extensive surgical history and multiple medical comorbidities presenting with abdominal pain with acute worsening last night associated with nausea, vomiting and obstipation and CT scan showing dilated small bowel loops consistent with SBO. Patient was admitted to the surgical service for further treatment of the SBO likely due to adhesions from prior surgery. She is overall well appearing and abdomen is benign and softly distended with mild diffuse tenderness without peritoneal signs. Recommended continuing conservative measures with bowel rest, IVF, PRN analgesics. Will hold off on NGT insertion as she has not vomited since this morning. Further plan dependent on clinical course. Hospitalist consult for management of her medical comorbidities. Encouraged OOB and ambulation to promote GI function. Quality Stroke Does the patient have a stroke diagnosis?: No VTE Prior VTE?: No VTE Risk Level:: Surgical - high VTE Device Contraindication: N/A - Device Ordered VTE Drug Contraindication: N/A - Med Ordered Procedures Date of Service Date of Service: 03/28/24
[2024-03-28] MEDS: Lactated Ringers 1,000 ML 100 ML IVCONT (13:18)
--- NOTE | 2024-03-28 13:21 | PC.NURSE ---
pt noted to be slightly hypoxic - resting at 88% on RA. pt denies hx of asthma/copd. lung sounds CTA. no sob/wob noted. respirations even/unlabored. pt placed on 2L via NC. tolerating well.
--- NOTE | 2024-03-28 13:32 | PC.NURSE ---
admission worksheet complete.
--- NOTE | 2024-03-28 13:54 | PHA.MEDREC ---
Pharmacy Consult ? Medication Reconciliation Pharmacy has completed the medication reconciliation. Pt did not want to talk, but told me her CENTRAL OFFICE OPERATOR takes care of everything. Was able to speak with CENTRAL OFFICE OPERATOR, who is under her secondary contacts, and she confirmed the medications she takes and how she takes them. Stated patient also takes Bisacodyl daily, added this to the med list.
[2024-03-28] MEDS: Acetaminophen 1,000 MG/100 ML PIGGYBACK 400 MG IV ×2 (14:13→19:43)
[2024-03-28] MEDS: HYDROmorphone HCl 1 MG/ML SYRINGE 0.5 MG IVPUSH ×3 (14:54→21:02)
--- NOTE | 2024-03-28 14:58 | PC.NURSE ---
Noted: ABD with old scars.
--- NOTE | 2024-03-28 15:12 | PC.NURSE ---
Pt very forgetful, Provider told patient she will not be getting surgery, this underwriter explained to her conservative management, continues to forget and not understand. Spent a considerable amount of time educating patient, eventually she stated she understands the plan of care.
--- NOTE | 2024-03-28 15:30 | HO.PM.IMCN ---
History of Present Illness Data of Consult Service Date: 03/28/24 Primary Care Provider: Bela Vasquez MD [facility] Reason for consult: Medical management Patient is a 68-year-old female with a PMH significant for HTN, HLD, CKD 3, chronic back pain on chronic opioids, hx of abdominal surgeries, hx of SBOs, and depression who presented to the ED with abdominal pain x5 days. Workup in the ED indicated small-bowel obstruction and patient was admitted under general surgery services. Hospitalist consult for medical management. Patient reports pain currently not controlled, complains of severe lower abdominal pain radiating to her back. Has not experienced any nausea or vomiting since 01:00 this morning; does not have an NGT in place. No flatus or bowel movements. Denies any other acute complaints at this time. No chest pain/pressure, palpitations. Denies shortness of breath or difficulty breathing. No cough. Review of Systems Review of Systems: Lower abdominal pain radiating to back No flatus or bowel movement Currently denies nausea and vomiting No chest pain/pressure, palpitations Denies shortness of breath or difficulty breathing No fever, chills PMFSH Medical History Hx of renal calculi Asthma Elevated cholesterol HTN (hypertension) Depression Anxiety Hx of small bowel obstruction GERD (gastroesophageal reflux disease) Family History Father PVD (peripheral vascular disease) Mother Depression Surgical History (Updated 03/28/24 @ 13:20 by Ana Bal PA-C) S/P cholecystectomy Hx of exploratory laparotomy (11/2016) History of colon surgery Hx of colonoscopy Hx of hysterectomy, total History of Salomon fundoplication Social History Household Members: None Housing: Apartment Do you presently have visiting nurse or other home services: No Alcohol intake: never Patient Tobacco Use Status: Never used Tobacco Smoked in Last 30 Days: No Second Hand Smoke Exposure: No Use of substances other than those prescribed or required for medical reasons: No Do you feel safe in your current relationship?: No Current Relationship Advance Directives: No Advance Directives Information Provided: No Do you have a plan to hurt others: No Plan Recently lost weight without trying: No Patient : No : No Poor oral hygiene: No service: No Current occupational status: disabled Meds Allergies Allergy/AdvReac Type Severity Reaction Status Date / Time amlodipine Allergy Mild Unknown Verified 03/28/24 08:07 carvedilol Allergy Mild Unknown Verified 03/28/24 08:07 chlorthalidone Allergy Mild Unknown Verified 03/28/24 08:07 diltiazem Allergy Mild Unknown Verified 03/28/24 08:07 lisinopril Allergy Mild Unknown Verified 03/28/24 08:07 NSAIDS (Non-Steroidal Allergy Mild Unknown Verified 03/28/24 08:07 Anti-Inflamma ibuprofen [From Motrin] Allergy Abdominal Verified 03/28/24 08:07 Pain Active Medications: Current Medications Heparin Sodium (Porcine) (Heparin Sodium,Porcine 5,000 Unit/Ml Vial) 5,000 unit SUBCUT Q8H JORDAN Hydromorphone HCl (Hydromorphone Hcl 1 Mg/Ml Syringe) 0.5 mg IVPUSH Q3H PRN; Protocol PRN Reason: Pain, Severe (Pain Scale 7-10) Last Admin: 03/28/24 14:54 Dose: 0.5 mg Lactated Ringer's (Lr) 1,000 mls @ 100 mls/hr IVCONT .Q10H JORDAN Last Admin: 03/28/24 13:18 Dose: 100 mls/hr Acetaminophen (Ofirmev) 1,000 mg in 100 mls @ 400 mls/hr IV Q6H [facility] Last Infusion: 03/28/24 14:45 Dose: Infused Ondansetron HCl (Ondansetron Hcl 4 Mg/2 Ml Vial) 4 mg IVPUSH Q8H PRN PRN Reason: Nausea and Vomiting Sodium Chloride (0.9 % Sodium Chloride Flush 3 Ml Syringe) 3 ml IVFLUSH QSHIFT [facility] Last Admin: 03/28/24 14:46 Dose: Not Given Home Medications ?Medication ?Instructions ?Recorded ?Confirmed ?Last Taken ?Type atorvastatin 40 mg tablet 1 tab PO BEDTIME 07/14/20 03/28/24 03/27/24 History clonazepam 1 mg tablet 1 tab PO TID PRN Anxiety 07/14/20 03/28/24 03/27/24 History escitalopram oxalate 10 mg tablet 1 tab PO DAILY 07/14/20 03/28/24 03/27/24 History omeprazole 20 mg capsule,delayed 1 cap PO DAILY@0630 07/14/20 03/28/24 03/27/24 History release oxycodone 10 mg tablet,crush 1 tab PO BID 07/14/20 03/28/24 03/27/24 History resistant,extended release 12 hr (OxyContin) oxycodone 5 mg tablet 1 tab PO Q12H PRN pain 07/14/20 03/28/24 03/27/24 History risperidone 0.5 mg tablet 1 tab PO BID 07/14/20 03/28/24 03/27/24 History bupropion HCl 150 mg 24 hr tablet, 150 mg PO DAILY 12/31/21 03/28/24 03/27/24 History extended release cholecalciferol (vitamin D3) 25 1 tab PO DAILY 12/31/21 03/28/24 03/27/24 History mcg (1,000 unit) tablet nifedipine 60 mg tablet,extended 1 tab PO BEDTIME 12/31/21 03/28/24 03/27/24 History release 24 hr quetiapine 400 mg tablet 1 tab PO BEDTIME 12/31/21 03/28/24 03/27/24 History bisacodyl 5 mg tablet 5 mg PO DAILY 03/28/24 03/28/24 03/27/24 History Physical Exam Vital Signs and Narrative: Vital Signs: Last Vital Signs Temp 96.8 F 03/28/24 14:19 Pulse 85 03/28/24 14:19 Resp 14 03/28/24 14:19 BP 126/61 03/28/24 14:19 Pulse Ox 95 03/28/24 14:19 O2 Del Method Room Air 03/28/24 14:19 O2 Flow Rate 2 03/28/24 13:21 BMI result Body Mass Index 40.2 General: AOx3, no acute distress Resp: CTA bilaterally CVS: S1, S2, RRR GI: Periumbilical and epigastric tenderness. Mild distention. Skin: Warm, dry Neuro: Cranial nerves II-XII grossly intact bilaterally. Motor grossly intact bilaterally Extremities: No edema Results Labs 03/28/24 08:20 03/28/24 08:20 Labs: Laboratory Results - last 24 hr 03/28/24 03/28/24 08:20 09:01 MCV 87.4 MCH 28.5 MCHC 32.6 RDW 12.9 Plt Count 355 MPV 9.2 L Immature Gran % (Auto) 0.4 Neut % (Auto) 81.3 H Lymph % (Auto) 12.1 L [place] % (Auto) 4.8 Eos % (Auto) 1.1 Baso % (Auto) 0.3 Lymph # (Auto) 1.8 [place] # (Auto) 0.7 Eos # (Auto) 0.2 Baso # (Auto) 0.0 Abs Immat Gran (auto) 0.06 H Absolute Neuts (auto) 11.8 H Absolute Nucleated RBC 0.000 Nucleated RBC % (auto) 0.0 Anion Gap 13 Estim Creat Clear Calc 48.2 Estimated GFR 42 Random Glucose 125 H Lactic Acid 1.3 Calcium 9.9 Total Bilirubin 0.3 AST 20 ALT 34 H Alkaline Phosphatase 162 H Total Protein 7.6 Albumin 4.2 Imaging Radiologist's Impressions: Impressions Abdomen/Pelvis CT 03/28/24 10:33 IMPRESSION: 1. Early small bowel obstruction with transition point in the left mid anterior abdomen. 2. Incidental note made of cholecystectomy, sigmoid anastomosis, marked fatty replacement of the pancreas, hysterectomy and degenerative changes in the spine. Fleischner guidelines were followed. Assessment and Plan (1) SBO (small bowel obstruction): Status: Acute Plan Patient is a 68-year-old female with a PMH significant for HTN, HLD, CKD 3, chronic back pain on chronic opioids, hx of abdominal surgeries, hx of SBOs, and depression who presented to the ED with abdominal pain x5 days. Workup in the ED indicated small-bowel obstruction and patient was admitted under general surgery services. Hospitalist consult for medical management. Small-bowel obstruction Currently not with NGT in place Plan as per General surgery HTN BP currently soft, hold nifedipine for now Resume as indicated HLD Continue statin Chronic back pain Continue home oxycodone GERD Continue PPI Mood disorder Continue escitalopram, bupropion, clonazepam, quetiapine, and risperidone Thank you for allowing us to participate in the care of this patient. Will continue to follow for now.
--- NOTE | 2024-03-28 15:37 | PC.NURSE ---
Attempted to explain the pain scale to patient. Pt is resting comfortably in bed, VSS, states she is a 8/10 pain. Provider not to increase IV Pain meds at this time. Added PO OxyContin 10mg BID, per home dose.
[2024-03-28] MEDS: oxyCODONE HCl Immed Release 5 MG TABLET PO (19:43)
[2024-03-28] MEDS: risperiDONE 0.5 MG TABLET PO (20:58)
[2024-03-28] MEDS: Atorvastatin Calcium 40 MG TABLET PO (20:58)
[2024-03-28] MEDS: QUEtiapine Fumarate 400 MG TABLET PO (20:58)
[2024-03-28] MEDS: clonazePAM 1 MG TABLET PO (21:33)
[2024-03-28] MEDS: oxyCODONE HCl ER 10 MG TAB.ER.12H PO (21:33)
[2024-03-29] MEDS: Lactated Ringers 1,000 ML 100 ML IVCONT ×3 (00:13→20:46)
[2024-03-29] MEDS: 0.9 % Sodium Chloride Flush 3 ML SYRINGE IVFLUSH ×2 (00:15→07:40)
[2024-03-29] MEDS: HYDROmorphone HCl 1 MG/ML SYRINGE 0.5 MG IVPUSH ×2 (00:17→07:37)
[2024-03-29] MEDS: Acetaminophen 1,000 MG/100 ML PIGGYBACK 400 MG IV ×4 (01:50→19:20)
[2024-03-29] MEDS: HYDROmorphone HCl 1 MG/ML SYRINGE 0.8 MG IVPUSH (02:22)
[2024-03-29 04:00] VITALS: BP 118/57; PULSE 66; RESP 16; TEMP 36; O2SAT 94
--- NOTE | 2024-03-29 05:59 | PC.NURSE ---
Addendum entered by Amelia Delarosa RN 03/29/24 06:01: pt also requesting more for pain, RN not comfortable giving anymore narcotics at this time. Original Note: pt states her body feels numb after extra 0.8mg dose of dilaudid. Vitals WNL. RR normal
[2024-03-29 08:00] VITALS: BP 118/79; PULSE 60; RESP 14; TEMP 36.3; O2SAT 98
--- NOTE | 2024-03-29 08:24 | PM.PNGS ---
Subjective Subjective Date of Service: 03/29/24 <Ana Bal PA-C - Last Filed: 03/29/24 08:36> 03/29/24 <Darrian Naranjo MD - Last Filed: 03/29/24 08:42> Interval history: When first seen this morning she stated she had no improvement in pain and was not passing flatus. C/o 0.5mg IV dilaudid does not touch her pain. Reassessed around 0815 and she states she began to pass flatus and feels better. <Ana Bal PA-C - Last Filed: 03/29/24 08:36> Physical Exam Vital Signs: Vital Signs: Last Vital Signs Temp 96.8 F 03/29/24 04:00 Pulse 66 03/29/24 04:00 Resp 16 03/29/24 04:00 BP 118/57 L 03/29/24 04:00 Pulse Ox 94 03/29/24 04:00 O2 Del Method Room Air 03/29/24 04:00 O2 Flow Rate 2 03/28/24 13:21 BMI result Body Mass Index 40.2 <Ana Bal PA-C - Last Filed: 03/29/24 08:36> Const: General: comfortable, no acute distress and alert <KYLIE Castillo Last Filed: 03/29/24 08:36> Orientation/consciousness: patient oriented x3 <Ana Bal PA-C - Last Filed: 03/29/24 08:36> Resp: Effort & Inspection: normal respiratory effort <KYLIE Castillo Last Filed: 03/29/24 08:36> GI: Inspection: Yes distended (mild) <KYLIE Castillo Last Filed: 03/29/24 08:36> Palpation (GI): Soft to palpation, Tenderness to palpation present (GI) (mild diffuse, increased in upper abdomen) and no guarding <KYLIE Castillo Last Filed: 03/29/24 08:36> Percussion: Yes tympanic to percussion <KYLIE Castillo Last Filed: 03/29/24 08:36> Skin: General skin exam: no rashes or lesions noted <Ana Bal PA-C - Last Filed: 03/29/24 08:36> Neuro: General: patient oriented x3 <Ana Bal PA-C - Last Filed: 03/29/24 08:36> Objective Data Active Medications Atorvastatin Calcium (Atorvastatin Calcium 40 Mg Tablet) 40 mg PO BEDTIME [facility] Last Admin: 03/28/24 20:58 Dose: 40 mg Documented By: HENRY Bupropion HCl (Bupropion Hcl Xl 150 Mg Tab.Er.24h) 150 mg PO DAILY [facility] Last Admin: 03/28/24 16:12 Dose: Not Given Documented By: KIRILL Non-Admin Reason: start pratima Clonazepam (Clonazepam 1 Mg Tablet) 1 mg PO TID PRN PRN Reason: Anxiety Last Admin: 03/28/24 21:33 Dose: 1 mg Documented By: HENRY Escitalopram Oxalate (Escitalopram Oxalate 10 Mg Tablet) 10 mg PO DAILY [facility] Last Admin: 03/28/24 16:19 Dose: Not Given Documented By: KIRILL Non-Admin Reason: give pratima Heparin Sodium (Porcine) (Heparin Sodium,Porcine 5,000 Unit/Ml Vial) 5,000 unit SUBCUT Q8H [facility] Hydromorphone HCl (Hydromorphone Hcl 1 Mg/Ml Syringe) 1 mg IVPUSH Q3H PRN; Protocol PRN Reason: Pain, Severe (Pain Scale 7-10) Lactated Ringer's (Lr) 1,000 mls @ 100 mls/hr IVCONT .Q10H [facility] Last Admin: 03/29/24 00:13 Dose: 100 mls/hr Documented By: HENRY Acetaminophen (Ofirmev) 1,000 mg in 100 mls @ 400 mls/hr IV Q6H [facility] Last Admin: 03/29/24 07:37 Dose: 400 mls/hr Documented By: BLANCA Omeprazole (Omeprazole 20 Mg Capsule.Dr) 20 mg PO DAILY@0630 [facility] Last Admin: 03/29/24 05:39 Dose: Not Given Documented By: HENRY Non-Admin Reason: refused r/t nausea Ondansetron HCl (Ondansetron Hcl 4 Mg/2 Ml Vial) 4 mg IVPUSH Q8H PRN PRN Reason: Nausea and Vomiting Oxycodone HCl (Oxycodone Hcl Er 10 Mg Tab.Er.12h) 10 mg PO BID [facility] Last Admin: 03/28/24 21:33 Dose: 10 mg Documented By: HENRY Quetiapine Fumarate (Quetiapine Fumarate 400 Mg Tablet) 400 mg PO BEDTIME [facility] Last Admin: 03/28/24 20:58 Dose: 400 mg Documented By: HENRY Risperidone (Risperidone 0.5 Mg Tablet) 0.5 mg PO BID [facility] Last Admin: 03/28/24 20:58 Dose: 0.5 mg Documented By: HENRY Sodium Chloride (0.9 % Sodium Chloride Flush 3 Ml Syringe) 3 ml IVFLUSH QSHIFT [facility] Last Admin: 03/29/24 07:40 Dose: 3 ml Documented By: BLANCA <Ana Bal PA-C - Last Filed: 03/29/24 08:36> Labs CBC & Chem 7: 03/28/24 08:20 03/28/24 08:20 <Ana Bal PA-C - Last Filed: 03/29/24 08:36> Labs: Laboratory Results - last 24 hr 03/28/24 03/28/24 08:20 09:01 MCV 87.4 MCH 28.5 MCHC 32.6 RDW 12.9 Plt Count 355 MPV 9.2 L Immature Gran % (Auto) 0.4 Neut % (Auto) 81.3 H Lymph % (Auto) 12.1 L [place] % (Auto) 4.8 Eos % (Auto) 1.1 Baso % (Auto) 0.3 Lymph # (Auto) 1.8 [place] # (Auto) 0.7 Eos # (Auto) 0.2 Baso # (Auto) 0.0 Abs Immat Gran (auto) 0.06 H Absolute Neuts (auto) 11.8 H Absolute Nucleated RBC 0.000 Nucleated RBC % (auto) 0.0 Anion Gap 13 Estim Creat Clear Calc 48.2 Estimated GFR 42 Random Glucose 125 H Lactic Acid 1.3 Calcium 9.9 Total Bilirubin 0.3 AST 20 ALT 34 H Alkaline Phosphatase 162 H Total Protein 7.6 Albumin 4.2 <Ana Bal PA-C - Last Filed: 03/29/24 08:36> Procedures Date of Service Date of Service: 03/29/24 <Ana Bal PA-C - Last Filed: 03/29/24 08:36> 03/29/24 <Darrian Naranjo MD - Last Filed: 03/29/24 08:42> Progress Note: A&P Assessment and plan (1) SBO (small bowel obstruction): Status: Acute <Ana Bal PA-C - Last Filed: 03/29/24 08:36> Assessment and Plan: Original plan was SBFT but patient now reporting improvement in symptoms and with evidence of GI function. She had CT with oral contrast yesterday and therefore will just obtain KUB to assess where contrast is today. Cont IVF, encouraged OOB/ambulation to promote GI function. Advance diet as tolerated. <Ana Bal PA-C - Last Filed: 03/29/24 08:36> Time Spent With Patient Time: Total time managing care of this patient today ____ minutes. <Ana Bal PA-C - Last Filed: 03/29/24 08:36> Quality Stroke Does the patient have a stroke diagnosis?: No <Ana Bal PA-C - Last Filed: 03/29/24 08:36> VTE Prior VTE?: No <Ana Bal PA-C - Last Filed: 03/29/24 08:36> VTE Risk Level:: Surgical - high <Ana Bal PA-C - Last Filed: 03/29/24 08:36> VTE Device Contraindication: N/A - Device Ordered <Ana Bal PA-C - Last Filed: 03/29/24 08:36> VTE Drug Contraindication: N/A - Med Ordered <Ana Bal PA-C - Last Filed: 03/29/24 08:36>
--- NOTE | 2024-03-29 08:36 | P.PNGS_ITS ---
Subjective Subjective Date of Service: 03/29/24 Interval history: Continues to report abdominal pain and distention. No nausea or vomiting. Asking for food this morning. Feels the pain medication is not covering her pain. Physical Exam 2 Vital Signs: Vital Signs: Last Vital Signs Temp 97.4 F 03/29/24 08:00 Pulse 60 03/29/24 08:00 Resp 14 03/29/24 08:00 BP 118/79 03/29/24 08:00 Pulse Ox 98 03/29/24 08:00 O2 Del Method Room Air 03/29/24 08:00 O2 Flow Rate 2 03/28/24 13:21 BMI result Body Mass Index 40.2 Const: General: no acute distress Nutritional Appearance: well nourished Orientation/consciousness: patient oriented x3 Resp: Effort & Inspection: normal respiratory effort GI: Inspection: Yes distended Palpation (GI): Soft to palpation, Tenderness to palpation present (GI) in the LUQ and in the RUQ; with no rebound tenderness, no guarding and not rigid Percussion: Yes tympanic to percussion A uscultation: abnormal bowel sounds Skin: General skin exam: no rashes or lesions noted Neuro: General: patient oriented x3 Objective Data Active Medications Atorvastatin Calcium (Atorvastatin Calcium 40 Mg Tablet) 40 mg PO BEDTIME [facility] Last Admin: 03/28/24 20:58 Dose: 40 mg Documented By: HENRY Bupropion HCl (Bupropion Hcl Xl 150 Mg Tab.Er.24h) 150 mg PO DAILY [facility] Last Admin: 03/28/24 16:12 Dose: Not Given Documented By: KIRILL Non-Admin Reason: start pratima Clonazepam (Clonazepam 1 Mg Tablet) 1 mg PO TID PRN PRN Reason: Anxiety Last Admin: 03/28/24 21:33 Dose: 1 mg Documented By: HENRY Escitalopram Oxalate (Escitalopram Oxalate 10 Mg Tablet) 10 mg PO DAILY [facility] Last Admin: 03/28/24 16:19 Dose: Not Given Documented By: KIRILL Non-Admin Reason: give pratima Heparin Sodium (Porcine) (Heparin Sodium,Porcine 5,000 Unit/Ml Vial) 5,000 unit SUBCUT Q8H [facility] Hydromorphone HCl (Hydromorphone Hcl 1 Mg/Ml Syringe) 1 mg IVPUSH Q3H PRN; Protocol PRN Reason: Pain, Severe (Pain Scale 7-10) Lactated Ringer's (Lr) 1,000 mls @ 100 mls/hr IVCONT .Q10H [facility] Last Admin: 03/29/24 00:13 Dose: 100 mls/hr Documented By: HENRY Acetaminophen (Ofirmev) 1,000 mg in 100 mls @ 400 mls/hr IV Q6H [facility] Last Infusion: 03/29/24 08:00 Dose: Infused Documented By: BLANCA Omeprazole (Omeprazole 20 Mg Capsule.Dr) 20 mg PO DAILY@0630 [facility] Last Admin: 03/29/24 05:39 Dose: Not Given Documented By: HENRY Non-Admin Reason: refused r/t nausea Ondansetron HCl (Ondansetron Hcl 4 Mg/2 Ml Vial) 4 mg IVPUSH Q8H PRN PRN Reason: Nausea and Vomiting Oxycodone HCl (Oxycodone Hcl Er 10 Mg Tab.Er.12h) 10 mg PO BID [facility] Last Admin: 03/28/24 21:33 Dose: 10 mg Documented By: HENRY Quetiapine Fumarate (Quetiapine Fumarate 400 Mg Tablet) 400 mg PO BEDTIME [facility] Last Admin: 03/28/24 20:58 Dose: 400 mg Documented By: HENRY Risperidone (Risperidone 0.5 Mg Tablet) 0.5 mg PO BID [facility] Last Admin: 03/28/24 20:58 Dose: 0.5 mg Documented By: HENRY Sodium Chloride (0.9 % Sodium Chloride Flush 3 Ml Syringe) 3 ml IVFLUSH QSHIFT [facility] Last Admin: 03/29/24 07:40 Dose: 3 ml Documented By: BLANCA Labs 03/28/24 08:20 03/28/24 08:20 Labs: Laboratory Results - last 24 hr 03/28/24 03/28/24 08:20 09:01 Anion Gap 13 Estim Creat Clear Calc 48.2 Estimated GFR 42 Random Glucose 125 H Lactic Acid 1.3 Calcium 9.9 Total Bilirubin 0.3 AST 20 ALT 34 H Alkaline Phosphatase 162 H Total Protein 7.6 Albumin 4.2 Procedures Date of Service Date of Service: 03/29/24 Progress Note: A&P Assessment and plan (1) SBO (small bowel obstruction): Status: Acute Plan 68-year-old female patient with history of previous abdominal surgery found to have dilated loops of small bowel consistent with a small-bowel obstruction. Patient continues to have abdominal distention but no further nausea or vomiting. Discussed possibility of NG tube placement. Also discussed limiting narcotic use as this will also slowed down peristalsis. Encouraged out of bed and ambulation today. Patient expressed understanding and agrees with the plan. Time Spent With Patient Time: Total time managing care of this patient today ____ minutes. Quality Stroke Does the patient have a stroke diagnosis?: No VTE Prior VTE?: No VTE Risk Level:: Surgical - high VTE Device Contraindication: N/A - Device Ordered VTE Drug Contraindication: N/A - Med Ordered
[2024-03-29] MEDS: buPROPion HCl XL 150 MG TAB.ER.24H PO (09:20)
[2024-03-29] MEDS: risperiDONE 0.5 MG TABLET PO ×2 (09:20→20:43)
[2024-03-29] MEDS: oxyCODONE HCl ER 10 MG TAB.ER.12H PO ×2 (09:20→20:43)
[2024-03-29] MEDS: Escitalopram Oxalate 10 MG TABLET PO (09:20)
[2024-03-29] MEDS: clonazePAM 1 MG TABLET PO (09:23)
[2024-03-29 09:24] LABS: MANUAL DIFF FLAG NO
[2024-03-29 09:30] LABS: Basophils Percent Auto 0.3 % (0-2); Eosinophils Absolute Auto 0.3 X10*3/uL (0.0-0.4); Eosinophils Percent Auto 2.7 % (0-4); Hematocrit 37.6 % (37.0-47.0); Hemoglobin 11.6 g/dl (12.0-16.0); Imm Gran Abs Auto 0.04 X10*3/uL (0.00-0.03); Imm Gran Pct Auto 0.3 % (0.0-0.4); Lymphocytes Absolute Auto 1.3 X10*3/uL (1.2-4.9); Lymphocytes Percent Auto 11.5 % (20-40); Mean Corpuscular HGB Conc 30.9 g/dl (31.0-35.0); Mean Corpuscular Hemoglobin 27.9 pg (27.0-33.0); Mean Corpuscular Volume 90.4 fL (80.0-98.0); Mean Platelet Volume 9.7 fL (9.4-12.3); Monocytes Absolute Auto 0.8 X10*3/uL (0.1-1.2); Monocytes Percent Auto 6.6 % (2-11); Neutrophils Absolute Auto 9.2 x10*3/uL (2.0-8.3); Neutrophils Percent Auto 78.6 % (45-73); Platelet Count 345 X10*3/uL (160-400); Red Blood Count 4.16 X10*6/uL (4.20-5.50); Red Cell Distribution Width 13.1 % (11.0-16.0); White Blood Count 11.6 X10*3/uL (4.8-10.8)
[2024-03-29 09:43] LABS: Anion Gap 13 (12-20); Blood Urea Nitrogen 12 mg/dL (9-16); Calcium 9.4 mg/dL (8.4-10.2); Carbon Dioxide 29 mmol/L (22-29); Chloride 105 mmol/L (96-108); Creatinine Clr Calc Pharmacy 47.9; Estimated Glomerular Filt Rate 44; Glucose Random 95 mg/dL (60-115); Sodium 142 mmol/L (135-145)
--- NOTE | 2024-03-29 10:09 | MHC.CM.PN ---
This entry writer met with patient along w/ precision layout worker. A&O x3 answering questions appropriately. Lives @ home uses walker around the home. 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 HCP requested- reports being @ home. DCP: Home & resume CHARGING OPERATOR services. CHARGING OPERATOR to transport.
--- NOTE | 2024-03-29 11:14 | P.PNIM_ITS ---
Subjective Subjective Date of Service: 03/29/24 Interval History: Being followed for small-bowel obstruction. Patient complaining of abdominal pain but better passing flatus ambulating in hallway denies nausea vomiting, no fevers no chills, no acute issues overnight. Review of Systems All other system reviewed and are negative. Physical Exam 2 Vital Signs: Vital Signs: Last Vital Signs Temp 97.4 F 03/29/24 08:00 Pulse 60 03/29/24 08:00 Resp 14 03/29/24 08:00 BP 118/79 03/29/24 08:00 Pulse Ox 98 03/29/24 08:00 O2 Del Method Room Air 03/29/24 08:00 O2 Flow Rate 2 03/28/24 13:21 BMI result Body Mass Index 40.2 Const: Other: General: Awake alert x3, no acute distress Neck: No JVD CVS: S1, S2, RRR Resp: CTA bilateral GI: Mild mid abdominal tenderness, bowel sounds audible, no guarding, no rigidity Skin: no rashes Extremities: no edema Neuro: Oriented X3, grossly intact Psych: Appropriate affect Objective Data Active Medications Atorvastatin Calcium (Atorvastatin Calcium 40 Mg Tablet) 40 mg PO BEDTIME [facility] Last Admin: 03/28/24 20:58 Dose: 40 mg Documented By: HENRY Bupropion HCl (Bupropion Hcl Xl 150 Mg Tab.Er.24h) 150 mg PO DAILY [facility] Last Admin: 03/29/24 09:20 Dose: 150 mg Documented By: BLANCA Clonazepam (Clonazepam 1 Mg Tablet) 1 mg PO TID PRN PRN Reason: Anxiety Last Admin: 03/29/24 09:23 Dose: 1 mg Documented By: BLANCA Escitalopram Oxalate (Escitalopram Oxalate 10 Mg Tablet) 10 mg PO DAILY [facility] Last Admin: 03/29/24 09:20 Dose: 10 mg Documented By: BLANCA Heparin Sodium (Porcine) (Heparin Sodium,Porcine 5,000 Unit/Ml Vial) 5,000 unit SUBCUT Q8H [facility] Hydromorphone HCl (Hydromorphone Hcl 1 Mg/Ml Syringe) 1 mg IVPUSH Q3H PRN; Protocol PRN Reason: Pain, Severe (Pain Scale 7-10) Lactated Ringer's (Lr) 1,000 mls @ 100 mls/hr IVCONT .Q10H [facility] Last Admin: 03/29/24 10:50 Dose: 100 mls/hr Documented By: BLANCA Acetaminophen (Ofirmev) 1,000 mg in 100 mls @ 400 mls/hr IV Q6H [facility] Last Infusion: 03/29/24 08:00 Dose: Infused Documented By: BLANCA Omeprazole (Omeprazole 20 Mg Capsule.Dr) 20 mg PO DAILY@0630 [facility] Last Admin: 03/29/24 05:39 Dose: Not Given Documented By: HENRY Non-Admin Reason: refused r/t nausea Ondansetron HCl (Ondansetron Hcl 4 Mg/2 Ml Vial) 4 mg IVPUSH Q8H PRN PRN Reason: Nausea and Vomiting Oxycodone HCl (Oxycodone Hcl Er 10 Mg Tab.Er.12h) 10 mg PO BID [facility] Last Admin: 03/29/24 09:20 Dose: 10 mg Documented By: BLANCA Quetiapine Fumarate (Quetiapine Fumarate 400 Mg Tablet) 400 mg PO BEDTIME [facility] Last Admin: 03/28/24 20:58 Dose: 400 mg Documented By: HENRY Risperidone (Risperidone 0.5 Mg Tablet) 0.5 mg PO BID [facility] Last Admin: 03/29/24 09:20 Dose: 0.5 mg Documented By: BLANCA Sodium Chloride (0.9 % Sodium Chloride Flush 3 Ml Syringe) 3 ml IVFLUSH QSHIFT [facility] Last Admin: 03/29/24 07:40 Dose: 3 ml Documented By: BLANCA Labs 03/29/24 07:52 03/29/24 07:52 Labs: Laboratory Results - last 24 hr 03/29/24 07:52 MCV 90.4 MCH 27.9 MCHC 30.9 L RDW 13.1 Plt Count 345 MPV 9.7 Immature Gran % (Auto) 0.3 Neut % (Auto) 78.6 H Lymph % (Auto) 11.5 L [place] % (Auto) 6.6 Eos % (Auto) 2.7 Baso % (Auto) 0.3 Lymph # (Auto) 1.3 [place] # (Auto) 0.8 Eos # (Auto) 0.3 Baso # (Auto) 0.0 Abs Immat Gran (auto) 0.04 H Absolute Neuts (auto) 9.2 H Absolute Nucleated RBC 0.000 Nucleated RBC % (auto) 0.0 Anion Gap 13 Estim Creat Clear Calc 47.9 Estimated GFR 44 Random Glucose 95 Calcium 9.4 Microbiology Microbiology Results: Microbiology 03/28/24 09:01 Blood Culture - Preliminary Blood - Venous No growth after 24 hours. 03/28/24 09:01 Blood Culture - Preliminary Blood - Venous No growth after 24 hours. Assessment and Plan (1) SBO (small bowel obstruction): Status: Acute (2) HTN (hypertension): Status: Acute Plan 68-year-old female with a PMH significant for HTN, HLD, CKD 3, chronic back pain on chronic opioids, hx of abdominal surgeries, hx of SBOs, and depression who presented to the ED with abdominal pain x5 days. Workup in the ED indicated small-bowel obstruction and patient was admitted under general surgery services. Hospitalist consult for medical management. Small-bowel obstruction Persistent pain improving, no nausea vomiting, passing flatus, normal electrolytes and renal function. On IV fluids, analgesics, NPO KUB pending treatment plan as per General surgery HTN BP remains soft will continue to hold nifedipine follow BP closely HLD Continue statin Chronic back pain Continue home oxycodone GERD Continue PPI Mood disorder No acute issues, Continue escitalopram, bupropion, clonazepam, quetiapine, and risperidone Dispo as per surgical team Quality Stroke Does the patient have a stroke diagnosis?: No VTE Prior VTE?: No VTE Risk Level:: Surgical - high VTE Device Contraindication: N/A - Device Ordered VTE Drug Contraindication: N/A - Med Ordered
[2024-03-29] MEDS: HYDROmorphone HCl 1 MG/ML SYRINGE IVPUSH ×3 (11:24→18:37)
[2024-03-29] MEDS: Heparin Sodium,Porcine 5,000 UNIT/ML VIAL 5000 UNIT SUBCUT ×2 (12:43→20:45)
[2024-03-29 16:00] VITALS: BP 144/70; PULSE 76; RESP 16; TEMP 36.5; O2SAT 96
[2024-03-29 19:41] VITALS: BP 169/81; PULSE 71; RESP 18; TEMP 36.1; O2SAT 95
[2024-03-29 19:50] VITALS: RESP 18
[2024-03-29] MEDS: Atorvastatin Calcium 40 MG TABLET PO (20:43)
[2024-03-29] MEDS: QUEtiapine Fumarate 400 MG TABLET PO (20:43)
[2024-03-30] VITALS (8 sets, daily range): BP systolic 134–176; BP diastolic 68–79; PULSE 69–75; RESP 14–20; TEMP 36–36.3; O2SAT 92–96
[2024-03-30] MEDS: Acetaminophen 1,000 MG/100 ML PIGGYBACK 400 MG IV ×4 (01:21→20:27)
[2024-03-30] MEDS: HYDROmorphone HCl 1 MG/ML SYRINGE IVPUSH ×3 (05:44→12:09)
[2024-03-30] MEDS: Heparin Sodium,Porcine 5,000 UNIT/ML VIAL 5000 UNIT SUBCUT ×3 (05:47→20:23)
[2024-03-30] MEDS: Lactated Ringers 1,000 ML 100 ML IVCONT (05:58)
[2024-03-30] MEDS: Escitalopram Oxalate 10 MG TABLET PO ×2 (08:46→08:48)
[2024-03-30] MEDS: oxyCODONE HCl ER 10 MG TAB.ER.12H PO ×2 (08:46→20:22)
[2024-03-30] MEDS: buPROPion HCl XL 150 MG TAB.ER.24H PO (08:47)
[2024-03-30] MEDS: risperiDONE 0.5 MG TABLET PO ×2 (08:48→20:24)
[2024-03-30] MEDS: 0.9 % Sodium Chloride Flush 3 ML SYRINGE IVFLUSH ×2 (08:48→15:38)
[2024-03-30] MEDS: clonazePAM 1 MG TABLET PO ×2 (08:56→18:10)
--- NOTE | 2024-03-30 13:17 | HO.PM.IMPN ---
Subjective Subjective Date of Service: 03/30/24 Interval History: Being followed for partial small-bowel obstruction/ileus Complaining of persistent abdominal pain but less, no nausea no vomiting tolerated clear liquid diet passing flatus no bowel movement, no fevers no chills ambulating with no symptoms of lightheadedness or dizziness. Review of Systems All other system reviewed and are negative. Physical Exam Vital Signs: Vital Signs: Last Vital Signs Temp 96.8 F 03/30/24 06:57 Pulse 73 03/30/24 06:57 Resp 14 03/30/24 06:57 BP 143/70 H 03/30/24 06:57 Pulse Ox 92 03/30/24 06:57 O2 Del Method Room Air 03/30/24 06:57 O2 Flow Rate 2 03/28/24 13:21 BMI result Body Mass Index 40.2 Const: Other: General: Awake alert x3, no acute distress Neck: No JVD CVS: S1, S2, RRR Resp: CTA bilateral GI: Mild mid abdominal tenderness, bowel sounds audible, no guarding, no rigidity Skin: no rashes Extremities: no edema Neuro: Oriented X3, grossly intact Psych: Appropriate affect Objective Data Active Medications Atorvastatin Calcium (Atorvastatin Calcium 40 Mg Tablet) 40 mg PO BEDTIME [facility] Last Admin: 03/29/24 20:43 Dose: 40 mg Documented By: BUNNY Bupropion HCl (Bupropion Hcl Xl 150 Mg Tab.Er.24h) 150 mg PO DAILY [facility] Last Admin: 03/30/24 08:47 Dose: 150 mg Documented By: PATY Clonazepam (Clonazepam 1 Mg Tablet) 1 mg PO TID PRN PRN Reason: Anxiety Last Admin: 03/30/24 08:56 Dose: 1 mg Documented By: PATY Comments: pt requested for anxiety Escitalopram Oxalate (Escitalopram Oxalate 10 Mg Tablet) 10 mg PO DAILY [facility] Last Admin: 03/30/24 08:48 Dose: 10 mg Documented By: PATY Heparin Sodium (Porcine) (Heparin Sodium,Porcine 5,000 Unit/Ml Vial) 5,000 unit SUBCUT Q8H [facility] Last Admin: 03/30/24 12:10 Dose: 5,000 unit Documented By: PATY Hydromorphone HCl (Hydromorphone Hcl 1 Mg/Ml Syringe) 1 mg IVPUSH Q3H PRN; Protocol PRN Reason: Pain, Severe (Pain Scale 7-10) Last Admin: 03/30/24 12:09 Dose: 1 mg Documented By: PATY Acetaminophen (Ofirmev) 1,000 mg in 100 mls @ 400 mls/hr IV Q6H [facility] Last Infusion: 03/30/24 09:03 Dose: Infused Documented By: PATY Omeprazole (Omeprazole 20 Mg Capsule.Dr) 20 mg PO DAILY@0630 [facility] Last Admin: 03/30/24 05:54 Dose: Not Given Documented By: BUNNY Non-Admin Reason: pt declined Ondansetron HCl (Ondansetron Hcl 4 Mg/2 Ml Vial) 4 mg IVPUSH Q8H PRN PRN Reason: Nausea and Vomiting Oxycodone HCl (Oxycodone Hcl Er 10 Mg Tab.Er.12h) 10 mg PO BID [facility] Last Admin: 03/30/24 08:46 Dose: 10 mg Documented By: PTAY Quetiapine Fumarate (Quetiapine Fumarate 400 Mg Tablet) 400 mg PO BEDTIME [facility] Last Admin: 03/29/24 20:43 Dose: 400 mg Documented By: BUNNY Risperidone (Risperidone 0.5 Mg Tablet) 0.5 mg PO BID [facility] Last Admin: 03/30/24 08:48 Dose: 0.5 mg Documented By: PATY Sodium Chloride (0.9 % Sodium Chloride Flush 3 Ml Syringe) 3 ml IVFLUSH QSHIFT [facility] Last Admin: 03/30/24 08:48 Dose: 3 ml Documented By: PATY Labs 03/29/24 07:52 03/29/24 07:52 Microbiology Microbiology Results: Microbiology 03/28/24 09:01 Blood Culture - Preliminary Blood - Venous No growth after 48 hours. 03/28/24 09:01 Blood Culture - Preliminary Blood - Venous No growth after 48 hours. Assessment and Plan (1) SBO (small bowel obstruction): Status: Acute (2) HTN (hypertension): Status: Acute Plan 68-year-old female with a PMH significant for HTN, HLD, CKD 3, chronic back pain on chronic opioids, hx of abdominal surgeries, hx of SBOs, and depression who presented to the ED with abdominal pain x5 days. Workup in the ED indicated small-bowel obstruction and patient was admitted under general surgery services. Hospitalist consult for medical management. Small-bowel obstruction Persistent pain improving, no nausea vomiting, passing flatus, normal electrolytes and renal function. On clear liquids, analgesics KUB showed Mildly dilated small bowel loops left upper quadrant compatible with patient history of probably partial small bowel obstruction and/or ileus. Contrast passed through the small bowel into the colon. On OxyContin 10 mg b.i.d. and Dilaudid 1 mg IV q.3 hours as needed recommend to minimize use of narcotics and ambulate. treatment plan as per General surgery HTN BP improved will resume Procardia xl 30 mg, low-dose to avoid hypotension (home dose 60 mg) HLD Continue statin Chronic back pain Resume home oxycodone upon discharge GERD Continue PPI Mood disorder No acute issues, Continue escitalopram, bupropion, clonazepam, quetiapine, and risperidone Dispo as per surgical team. Quality Stroke Does the patient have a stroke diagnosis?: No VTE Prior VTE?: No VTE Risk Level:: Surgical - high VTE Device Contraindication: N/A - Device Ordered VTE Drug Contraindication: N/A - Med Ordered
--- NOTE | 2024-03-30 14:01 | PC.NURSE ---
Patient tolerated full liquid diet,no nausea ,no change in pain,reported lg formed BM,diet advanced to regular
--- NOTE | 2024-03-30 14:31 | PM.PNGS ---
Subjective Subjective Date of Service: 03/30/24 Interval history: Patient was abdominal symptoms are improved. She passed flatus and stool. She would like to commence a diet. White count yesterday improved Physical Exam Vital Signs: Vital Signs: Last Vital Signs Temp 96.8 F 03/30/24 06:57 Pulse 73 03/30/24 06:57 Resp 14 03/30/24 06:57 BP 143/70 H 03/30/24 06:57 Pulse Ox 92 03/30/24 06:57 O2 Del Method Room Air 03/30/24 06:57 O2 Flow Rate 2 03/28/24 13:21 BMI result Body Mass Index 40.2 GI: Other: Abdomen very corpulent, mild mid abdominal tenderness. Multiple abdominal scars. No evidence of any guarding, rebound, or rigidity. Objective Data Active Medications Atorvastatin Calcium (Atorvastatin Calcium 40 Mg Tablet) 40 mg PO BEDTIME [facility] Last Admin: 03/29/24 20:43 Dose: 40 mg Documented By: BUNNY Bupropion HCl (Bupropion Hcl Xl 150 Mg Tab.Er.24h) 150 mg PO DAILY [facility] Last Admin: 03/30/24 08:47 Dose: 150 mg Documented By: PATY Clonazepam (Clonazepam 1 Mg Tablet) 1 mg PO TID PRN PRN Reason: Anxiety Last Admin: 03/30/24 08:56 Dose: 1 mg Documented By: PATY Comments: pt requested for anxiety Escitalopram Oxalate (Escitalopram Oxalate 10 Mg Tablet) 10 mg PO DAILY [facility] Last Admin: 03/30/24 08:48 Dose: 10 mg Documented By: PATY Heparin Sodium (Porcine) (Heparin Sodium,Porcine 5,000 Unit/Ml Vial) 5,000 unit SUBCUT Q8H [facility] Last Admin: 03/30/24 12:10 Dose: 5,000 unit Documented By: PATY Hydromorphone HCl (Hydromorphone Hcl 0.5 Mg/0.5 Ml Syringe) 0.5 mg IVPUSH Q3H PRN; Protocol PRN Reason: Pain, Severe (Pain Scale 7-10) Acetaminophen (Ofirmev) 1,000 mg in 100 mls @ 400 mls/hr IV Q6H [facility] Last Infusion: 03/30/24 13:57 Dose: Infused Documented By: PATY Nifedipine (Nifedipine Er 30 Mg Tab.Er.24) 30 mg PO BEDTIME [facility]; Protocol Omeprazole (Omeprazole 20 Mg Capsule.Dr) 20 mg PO DAILY@0630 [facility] Last Admin: 03/30/24 05:54 Dose: Not Given Documented By: BUNNY Non-Admin Reason: pt declined Ondansetron HCl (Ondansetron Hcl 4 Mg/2 Ml Vial) 4 mg IVPUSH Q8H PRN PRN Reason: Nausea and Vomiting Oxycodone HCl (Oxycodone Hcl Er 10 Mg Tab.Er.12h) 10 mg PO BID [facility] Last Admin: 03/30/24 08:46 Dose: 10 mg Documented By: PATY Quetiapine Fumarate (Quetiapine Fumarate 400 Mg Tablet) 400 mg PO BEDTIME [facility] Last Admin: 03/29/24 20:43 Dose: 400 mg Documented By: BUNNY Risperidone (Risperidone 0.5 Mg Tablet) 0.5 mg PO BID [facility] Last Admin: 03/30/24 08:48 Dose: 0.5 mg Documented By: PATY Sodium Chloride (0.9 % Sodium Chloride Flush 3 Ml Syringe) 3 ml IVFLUSH QSHIFT [facility] Last Admin: 03/30/24 08:48 Dose: 3 ml Documented By: PATY Labs 03/29/24 07:52 03/29/24 07:52 Microbiology Microbiology Results: Microbiology 03/28/24 09:01 Blood Culture - Preliminary Blood - Venous No growth after 48 hours. 03/28/24 09:01 Blood Culture - Preliminary Blood - Venous No growth after 48 hours. Procedures Date of Service Date of Service: 03/30/24 Progress Note: A&P Assessment and plan (1) SBO (small bowel obstruction): Status: Acute Plan Partial SBO improving. To commence clear to full liquid diet as tolerated. Time Spent With Patient Time: Total time managing care of this patient today ____ minutes. Quality Stroke Does the patient have a stroke diagnosis?: No VTE Prior VTE?: No VTE Risk Level:: Surgical - high VTE Device Contraindication: N/A - Device Ordered VTE Drug Contraindication: N/A - Med Ordered
[2024-03-30] MEDS: HYDROmorphone HCl 0.5 MG/0.5 ML SYRINGE IVPUSH ×2 (15:35→19:18)
[2024-03-30] MEDS: QUEtiapine Fumarate 400 MG TABLET PO (20:22)
[2024-03-30] MEDS: Atorvastatin Calcium 40 MG TABLET PO (20:24)
[2024-03-30] MEDS: NIFEdipine ER 30 MG TAB.ER.24 PO (20:24)
[2024-03-31] MEDS: Acetaminophen 1,000 MG/100 ML PIGGYBACK 400 MG IV ×2 (01:21→08:35)
[2024-03-31] MEDS: HYDROmorphone HCl 0.5 MG/0.5 ML SYRINGE IVPUSH ×2 (01:22→05:42)
[2024-03-31 04:00] VITALS: BP 158/79; PULSE 88; RESP 16; TEMP 36.3; O2SAT 97
[2024-03-31] MEDS: Omeprazole 20 MG CAPSULE.DR PO (05:39)
[2024-03-31] MEDS: Heparin Sodium,Porcine 5,000 UNIT/ML VIAL 5000 UNIT SUBCUT ×2 (05:39→12:10)
[2024-03-31 06:58] VITALS: BP 140/77; PULSE 86; RESP 14; TEMP 36.4; O2SAT 94
[2024-03-31] MEDS: Escitalopram Oxalate 10 MG TABLET PO (08:36)
[2024-03-31] MEDS: oxyCODONE HCl ER 10 MG TAB.ER.12H PO (08:36)
[2024-03-31] MEDS: buPROPion HCl XL 150 MG TAB.ER.24H PO (08:36)
[2024-03-31] MEDS: 0.9 % Sodium Chloride Flush 3 ML SYRINGE IVFLUSH (08:37)
[2024-03-31] MEDS: oxyCODONE HCl Immed Release 5 MG TABLET PO (08:37)
[2024-03-31] MEDS: risperiDONE 0.5 MG TABLET PO (08:37)
--- NOTE | 2024-03-31 09:47 | HO.PM.IMPN ---
Subjective Subjective Date of Service: 03/31/24 Interval History: Complaining of mid abdominal pain, tolerating diet, no recurrent nausea, no vomiting, had bowel movement yesterday, ambulating without lightheadedness or dizziness. Review of Systems All other system reviewed and are negative Physical Exam Vital Signs: Vital Signs: Last Vital Signs Temp 97.5 F 03/31/24 06:58 Pulse 86 03/31/24 06:58 Resp 14 03/31/24 06:58 BP 140/77 H 03/31/24 06:58 Pulse Ox 94 03/31/24 06:58 O2 Del Method Room Air 03/31/24 06:58 O2 Flow Rate 2 03/28/24 13:21 BMI result Body Mass Index 40.2 Const: Other: General: Awake alert x3, no acute distress Neck: No JVD CVS: S1, S2, RRR Resp: CTA bilateral GI: Mild mid abdominal tenderness to palpation, soft, bowel sounds audible, no guarding, no rigidity Skin: no rashes Extremities: no edema Neuro: Oriented X3, grossly intact Psych: Appropriate affect Objective Data Active Medications Atorvastatin Calcium (Atorvastatin Calcium 40 Mg Tablet) 40 mg PO BEDTIME [facility] Last Admin: 03/30/24 20:24 Dose: 40 mg Documented By: KIYA Bupropion HCl (Bupropion Hcl Xl 150 Mg Tab.Er.24h) 150 mg PO DAILY [facility] Last Admin: 03/31/24 08:36 Dose: 150 mg Documented By: PATY Clonazepam (Clonazepam 1 Mg Tablet) 1 mg PO TID PRN PRN Reason: Anxiety Last Admin: 03/30/24 18:10 Dose: 1 mg Documented By: PATY Comments: patient requested for anxiety Escitalopram Oxalate (Escitalopram Oxalate 10 Mg Tablet) 10 mg PO DAILY [facility] Last Admin: 03/31/24 08:36 Dose: 10 mg Documented By: PATY Heparin Sodium (Porcine) (Heparin Sodium,Porcine 5,000 Unit/Ml Vial) 5,000 unit SUBCUT Q8H [facility] Last Admin: 03/31/24 05:39 Dose: 5,000 unit Documented By: KIYA Acetaminophen (Ofirmev) 1,000 mg in 100 mls @ 400 mls/hr IV Q6H [facility] Last Infusion: 03/31/24 08:57 Dose: Infused Documented By: PATY Nifedipine (Nifedipine Er 30 Mg Tab.Er.24) 30 mg PO BEDTIME [facility]; Protocol Last Admin: 03/30/24 20:24 Dose: 30 mg Documented By: KIYA Omeprazole (Omeprazole 20 Mg Capsule.Dr) 20 mg PO DAILY@0630 [facility] Last Admin: 03/31/24 05:39 Dose: 20 mg Documented By: KIYA Ondansetron HCl (Ondansetron Hcl 4 Mg/2 Ml Vial) 4 mg IVPUSH Q8H PRN PRN Reason: Nausea and Vomiting Oxycodone HCl (Oxycodone Hcl Er 10 Mg Tab.Er.12h) 10 mg PO BID [facility] Last Admin: 03/31/24 08:36 Dose: 10 mg Documented By: PATY Oxycodone HCl (Oxycodone Hcl Immed Release 5 Mg Tablet) 5 mg PO Q6H PRN PRN Reason: Pain, Moderate(Pain Scale 4-6) Last Admin: 03/31/24 08:37 Dose: 5 mg Documented By: PATY Quetiapine Fumarate (Quetiapine Fumarate 400 Mg Tablet) 400 mg PO BEDTIME [facility] Last Admin: 03/30/24 20:22 Dose: 400 mg Documented By: KIYA Risperidone (Risperidone 0.5 Mg Tablet) 0.5 mg PO BID [facility] Last Admin: 03/31/24 08:37 Dose: 0.5 mg Documented By: PATY Sodium Chloride (0.9 % Sodium Chloride Flush 3 Ml Syringe) 3 ml IVFLUSH QSHIFT [facility] Last Admin: 03/31/24 08:37 Dose: 3 ml Documented By: PATY Labs 03/29/24 07:52 03/29/24 07:52 Microbiology Microbiology Results: Microbiology 03/28/24 09:01 Blood Culture - Preliminary Blood - Venous No growth after 48 hours. 03/28/24 09:01 Blood Culture - Preliminary Blood - Venous No growth after 48 hours. Assessment and Plan (1) SBO (small bowel obstruction): Status: Acute (2) HTN (hypertension): Status: Acute Plan 68-year-old female with a PMH significant for HTN, HLD, CKD 3, chronic back pain on chronic opioids, hx of abdominal surgeries, hx of SBOs, and depression who presented to the ED with abdominal pain x5 days. Workup in the ED indicated small-bowel obstruction and patient was admitted under general surgery services. Hospitalist consult for medical management. Small-bowel obstruction History of chronic abdominal pain, acute pain resolved, no nausea vomiting, passing flatus, normal electrolytes and renal function. On regular diet KUB showed Mildly dilated small bowel loops left upper quadrant compatible with patient history of probably partial small bowel obstruction and/or ileus. Contrast passed through the small bowel into the colon. On chronic OxyContin 10 mg b.i.d. and oxycodone as needed DC IV Tylenol, DC IV Dilaudid , recommend to minimize use of narcotics and ambulate. dc plan as per General surgery HTN BP improved will resume Procardia xl 60 mg HLD Continue statin Chronic back pain Resume home oxycodone upon discharge GERD Continue PPI Mood disorder No acute issues, Continue escitalopram, bupropion, clonazepam, quetiapine, and risperidone Dispo as per surgical team. Will sign off. Quality Stroke Does the patient have a stroke diagnosis?: No VTE Prior VTE?: No VTE Risk Level:: Surgical - high VTE Device Contraindication: N/A - Device Ordered VTE Drug Contraindication: N/A - Med Ordered
--- NOTE | 2024-03-31 10:41 | PC.NURSE ---
Addendum entered by Greta Arango RN 03/31/24 11:11: Case management spoke with patient reassuring they will provide for ride home if necessary Addendum entered by Greta Arango RN 03/31/24 10:43: notified that patient wants to be discharged home as advised by Dr. Haley,Dr. Curry will be in early afternoon ,patient notified Original Note: Patient states she would like to go home now,stating she has someone to pick her up,Dr. Haley notified.
[2024-03-31] MEDS: clonazePAM 1 MG TABLET PO (11:14)
--- NOTE | 2024-03-31 11:37 | PM.DS ---
DS: Providers Provider Date of Service: 03/31/24 Date of admission: 03/28/24 12:54 Date of discharge: 03/31/24 Primary care physician: Bela Vasquez MD Attending physician on admission: Darrian Naranjo Consults: 03/28/24 13:25 Consult to Hospitalist Routine Comment: Consulting Provider: Hospitalist Reason For Exam: SBO, medical management hx of CKD, HTN, asthma Attending physician on discharge: Andrea Curry DS: Diagnosis Discharge Diagnosis (1) SBO (small bowel obstruction): Status: Acute DS: Summary Hospital Course Hospital Course: HPI AT ADMISSION: Delphine Martínez is a 68 year old female with PMH significant for hypertension, depression, hypercholesterolemia, CKD, asthma, chronic back pain on chronic narcotics who presented with abdominal pain for 5 days. Patient reports she developed epigastric abdominal pain on Monday. This was low intensity however became severe last night and became more diffuse. The pain was associated with nausea and vomiting. She reports passing flatus yesterday but not today and last normal BM was two days ago however she normally is constipated. Due to the severity of pain, she called EMS and presented to the ED. Work up included CBC, BMP, LFTs which was significant for 14.5 and Cr of 1.27 which is slightly elevated from baseline. Lactic acid was normal. CT scan was obtained which was significant for dilated proximal small bowel and fecalization with decompressed distal small bowel with possible transition point left mid abdomen. She has been previously admitted to [facility] for SBOs that resolved with conservative management, last episode in 2021. Last colonoscopy here in 2021 was normal. She has an extensive surgical history and details are uncertain but seems have included a sigmoid resection for sigmoid volvulus, possible ostomy, ex lap with drainage of intraabdominal abscess, ex lap colostomy reversal with primary colorectal anastomosis and parastomal hernia repair at [facility]. She also has had hysterectomy, cholecystectomy and dayna fundoplication. She has not vomited since this morning. She feels overall improved. HOSPITAL COURSE: She was admitted to the surgical service for further treatment of the SBO. The following day, f/u KUB was obtained which showed the oral contrast in the colon. She began to pass flatus. She was started on clear liquids. She continued to improve and abdominal pain resolved. She was started on full liquids and then solid diet. On the day of discharge, she was tolerating a solid diet without nausea or vomiting, had good GI function and had no abdominal pain. Her abdomen was benign. She felt ready for discharge. She was discharged to home on 03/31/24 in stable condition. Status at Discharge Functional status at discharge: independent ambulation Overall status at discharge: patient is back to baseline Time Attestation Discharge Coordination Time (in mins): 35 Quality: Safe Use of Opioids Does Pt have an Active Cancer Diagnosis on the Problem List?: No Quality: Stroke Does the patient have a stroke diagnosis?: No Physical Exam Vital Signs: Vital Signs: Last Vital Signs Temp 97.5 F 03/31/24 06:58 Pulse 86 03/31/24 06:58 Resp 14 03/31/24 06:58 BP 140/77 H 03/31/24 06:58 Pulse Ox 94 03/31/24 06:58 O2 Del Method Room Air 03/31/24 06:58 O2 Flow Rate 2 03/28/24 13:21 BMI result Body Mass Index 40.2 Const: General: comfortable and no acute distress GI: Inspection: No distended Palpation (GI): Soft to palpation and nontender DS: Data Data Completed and Pending Labs on day of discharge: Preliminary micro results at discharge 03/28/24 09:01 Blood Culture - Preliminary Blood - Venous No growth after 48 hours. 03/28/24 09:01 Blood Culture - Preliminary Blood - Venous No growth after 48 hours. Discharge Plan Discharge Anticipated Discharge Date/Time: 03/31/24 13:21 Patient Disposition: Home, Self-Care Discharge Diagnosis: Partial small bowel obstruction Referrals: Bela Vasquez MD [Primary Care Provider] - 1 Week Discharge Medications: Continued atorvastatin 40 mg tablet 1 tab PO BEDTIME clonazepam 1 mg tablet 1 tab PO TID PRN (Reason: Anxiety) omeprazole 20 mg capsule,delayed release(DR/EC) 1 cap PO DAILY@0630 risperidone 0.5 mg tablet 1 tab PO BID oxycodone 5 mg tablet 1 tab PO Q12H PRN (Reason: pain) escitalopram oxalate 10 mg tablet 1 tab PO DAILY oxycodone [OxyContin] 10 mg tablet,oral only,ext.rel.12 hr 1 tab PO BID nifedipine 60 mg tablet extended release 24 hr 1 tab PO BEDTIME quetiapine 400 mg tablet 1 tab PO BEDTIME cholecalciferol (vitamin D3) 25 mcg (1,000 unit) tablet 1 tab PO DAILY bupropion HCl 150 mg Tablet Extended Release 24 Hr 150 mg PO DAILY bisacodyl 5 mg Tablet 5 mg PO DAILY Discharge Orders: Discharge Order (Routine); Ordered 03/31/24 Ordered By: Andrea Curry Diet: Advance to usual diet Activity on Discharge: No heavy lifting Stand Alone Forms: Patient Portal Discharge page Print Language: Congolese Care Plan Goals: Returned to baseline Health Concerns: No new concerns Plan of Treatment: Convalescence Assessment: Stable Patient Instructions: Bowel Obstruction (GEN) Discharge Date/Time: 03/31/24 14:40
--- NOTE | 2024-03-31 13:20 | P.PNGS_ITS ---
Subjective Subjective Date of Service: 03/31/24 Interval history: Patient is tolerating her diet. He is having regular bowel habits. She is still has lower abdominal discomfort but much improved. She wishes to be discharged home. Physical Exam 2 Vital Signs: Vital Signs: Last Vital Signs Temp 97.5 F 03/31/24 06:58 Pulse 86 03/31/24 06:58 Resp 14 03/31/24 06:58 BP 140/77 H 03/31/24 06:58 Pulse Ox 94 03/31/24 06:58 O2 Del Method Room Air 03/31/24 06:58 O2 Flow Rate 2 03/28/24 13:21 BMI result Body Mass Index 40.2 GI: Other: Corpulent abdomen. Mild periumbilical tenderness. No evidence of any guarding, rebound, or rigidity. Objective Data Active Medications Atorvastatin Calcium (Atorvastatin Calcium 40 Mg Tablet) 40 mg PO BEDTIME [facility] Last Admin: 03/30/24 20:24 Dose: 40 mg Documented By: KIYA Bupropion HCl (Bupropion Hcl Xl 150 Mg Tab.Er.24h) 150 mg PO DAILY [facility] Last Admin: 03/31/24 08:36 Dose: 150 mg Documented By: PATY Clonazepam (Clonazepam 1 Mg Tablet) 1 mg PO TID PRN PRN Reason: Anxiety Last Admin: 03/31/24 11:14 Dose: 1 mg Documented By: PATY Comments: pt requested it for anxiety Escitalopram Oxalate (Escitalopram Oxalate 10 Mg Tablet) 10 mg PO DAILY [facility] Last Admin: 03/31/24 08:36 Dose: 10 mg Documented By: PATY Heparin Sodium (Porcine) (Heparin Sodium,Porcine 5,000 Unit/Ml Vial) 5,000 unit SUBCUT Q8H [facility] Last Admin: 03/31/24 12:10 Dose: 5,000 unit Documented By: PAYT Nifedipine (Nifedipine Er 30 Mg Tab.Er.24) 60 mg PO BEDTIME [facility]; Protocol Omeprazole (Omeprazole 20 Mg Capsule.) 20 mg PO DAILY@0630 [facility] Last Admin: 03/31/24 05:39 Dose: 20 mg Documented By: KIYA Ondansetron HCl (Ondansetron Hcl 4 Mg/2 Ml Vial) 4 mg IVPUSH Q8H PRN PRN Reason: Nausea and Vomiting Oxycodone HCl (Oxycodone Hcl Er 10 Mg Tab.Er.12h) 10 mg PO BID [facility] Last Admin: 03/31/24 08:36 Dose: 10 mg Documented By: PATY Oxycodone HCl (Oxycodone Hcl Immed Release 5 Mg Tablet) 5 mg PO Q6H PRN PRN Reason: Pain, Moderate(Pain Scale 4-6) Last Admin: 03/31/24 08:37 Dose: 5 mg Documented By: PATY Quetiapine Fumarate (Quetiapine Fumarate 400 Mg Tablet) 400 mg PO BEDTIME [facility] Last Admin: 03/30/24 20:22 Dose: 400 mg Documented By: KIYA Risperidone (Risperidone 0.5 Mg Tablet) 0.5 mg PO BID [facility] Last Admin: 03/31/24 08:37 Dose: 0.5 mg Documented By: PATY Sodium Chloride (0.9 % Sodium Chloride Flush 3 Ml Syringe) 3 ml IVFLUSH QSHIFT [facility] Last Admin: 03/31/24 08:37 Dose: 3 ml Documented By: PATY Labs 03/29/24 07:52 03/29/24 07:52 Microbiology Microbiology Results: Microbiology 03/28/24 09:01 Blood Culture - Preliminary Blood - Venous No growth after 48 hours. 03/28/24 09:01 Blood Culture - Preliminary Blood - Venous No growth after 48 hours. Procedures Date of Service Date of Service: 03/31/24 Progress Note: A&P Assessment and plan (1) SBO (small bowel obstruction): Status: Acute Plan Current plan is to discharge patient home with follow-up as per discharge instruction sheet. All questions answered. Patient should return should her symptoms progress or worsen. Time Spent With Patient Time: Total time managing care of this patient today ____ minutes. Quality Stroke Does the patient have a stroke diagnosis?: No VTE Prior VTE?: No VTE Risk Level:: Surgical - high VTE Device Contraindication: N/A - Device Ordered VTE Drug Contraindication: N/A - Med Ordered
--- NOTE | 2024-03-31 15:24 | MHC.CM.PN ---
PT DISCHARGED HOME TODAY WITH NO SERVICES VIA PRIVATE TRANSPORT
== END 2024-03-31 14:40 | disposition home or self-care (01) | DRG 390 ==
LOC: HO.ED 12:30 → HO.EDOVER 13:01 → HO.S3 13:14
PROVIDERS: Physician Assistant Medical; Admitting Provider Physician Assistant Surgical; Emergency Provider Emergency Medicine; PCP Family Medicine; Visit Provider Physician Assistant Surgical
DX: K56.51 Intestinal adhesions [bands], with partial obstruction (principal); F32.A Depression, unspecified; M54.9 Dorsalgia, unspecified; E78.00 Pure hypercholesterolemia, unspecified; G89.29 Other chronic pain; I12.9 Hypertensive chronic kidney disease with stage 1 through stage 4 chronic kidney disease, or unspecified chronic kidney disease; N18.30 Chronic kidney disease, stage 3 unspecified; Z79.899 Other long term (current) drug therapy
CPT/HCPCS: 36415; 74018; 74177; 80048; 80053; 83605; 85025; 87040; 99285; J0131; J1170; J1644; J2405; J3360; J7120; Q9967

== ENCOUNTER → 2024-03-28 12:54 | Outpatient (BNV) | payer OTHER, SELFPAY | PROVIDERS: Admitting Provider Physician Assistant Surgical; Emergency Provider Emergency Medicine; PCP Family Medicine; Visit Provider Physician Assistant Surgical | DX: K56.609 Unspecified intestinal obstruction, unspecified as to partial versus complete obstruction (principal) | CPT/HCPCS: 99222; 99232; 99239; 99499 ==

== ENCOUNTER → 2024-03-28 12:54 | Outpatient (BNV) | payer OTHER, SELFPAY | PROVIDERS: Admitting Provider Physician Assistant Surgical; Emergency Provider Emergency Medicine; PCP Family Medicine; Visit Provider Student in an Organized Health Care Education/Training Program | DX: K56.609 Unspecified intestinal obstruction, unspecified as to partial versus complete obstruction (principal); I10 Essential (primary) hypertension | CPT/HCPCS: 99222; 99232 ==

== ENCOUNTER 2024-04-18 11:19 | Outpatient (REF) | payer OTHER, SELFPAY | END 2024-04-18 11:20 | disposition home or self-care (01) | LOC: HO.LNP 11:19 | PROVIDERS: PCP Family Medicine; Visit Provider Nurse Practitioner Family | DX: N39.0 Urinary tract infection, site not specified (principal); N20.0 Calculus of kidney | CPT/HCPCS: 51798; 81003; 99202 ==

== ENCOUNTER 2024-04-18 11:19 | Outpatient (AMB) | payer OTHER, SELFPAY ==
--- NOTE | 2024-04-18 11:30 | A.OFFVIS_ITS ---
Intake Visit Reasons: gross hematuria, Recurrent UTI Intake Note: New Patient presents for initial visit for Gross Hematuria and Recurrent UTI Urology Medications: none Blood Thinner: none PVR: 11ml's Medical Lab Assistant Required: No Accompanied by: Self / Same As Patient Allergies amlodipine Allergy (Mild, Verified 04/19/24 16:01) Unknown carvedilol Allergy (Mild, Verified 04/19/24 16:01) Unknown chlorthalidone Allergy (Mild, Verified 04/19/24 16:01) Unknown diltiazem Allergy (Mild, Verified 04/19/24 16:01) Unknown lisinopril Allergy (Mild, Verified 04/19/24 16:01) Unknown NSAIDS (Non-Steroidal Anti-Inflamma Allergy (Mild, Verified 04/19/24 16:01) Unknown ibuprofen [From Motrin] Allergy (Verified 04/19/24 16:01) Abdominal Pain Medication List - Last Reconciled 04/19/24 by LIVAN Mata atorvastatin 1 tab PO BEDTIME bisacodyl 5 mg PO DAILY bupropion HCl XL 150 mg PO DAILY cholecalciferol (vitamin D3) 1 tab PO DAILY clonazepam 1 tab PO TID PRN escitalopram oxalate 1 tab PO DAILY nifedipine ER 1 tab PO BEDTIME omeprazole 1 cap PO DAILY@0630 oxycodone 1 tab PO Q12H PRN oxycodone ER (OxyContin) 1 tab PO BID quetiapine 1 tab PO BEDTIME risperidone 1 tab PO BID HPI Comments Details: Delphine is a very pleasant 68-year-old female patient of Dr. Vasquez. She has a past medical history of anxiety, depression, nephrolithiasis, asthma, hypercholesteremia, hypertension, GERD, and small-bowel obstruction. She presents to the office today as a new patient for recurrent urinary tract infections and microscopic hematuria. In discussion with the patient today she reports having had UTI like symptoms over the last few months however feels these have since resolved. She reports UTI symptoms are accompanied by her history of constipation. In review of patient's chart it appears a CT of the abdomen was ordered and performed. These results were reviewed with the patient today. The kidneys are normal in size, shape, and attenuation. No hydronephrosis, hydroureter, or calculi seen. No perinephric stranding. The bladder is unremarkable. In office urinalysis results reviewed with the patient today. PVR 11 mL. Discussed at length potential causes of recurrent urinary tract infections in relation to constipation. She currently denies any bothersome urinary issues or concerns. She denies urinary urgency, urinary frequency, incontinence, nocturia, hematuria, dysuria, foul smelling urine, changes to urinary stream, flank pain, fever, and or chills. She is happy with her current voiding parameters. PFS Medical History Hx of renal calculi Asthma Elevated cholesterol HTN (hypertension) Depression Anxiety Hx of small bowel obstruction GERD (gastroesophageal reflux disease) Surgical History S/P cholecystectomy Hx of exploratory laparotomy (11/2016) History of colon surgery Hx of colonoscopy Hx of hysterectomy, total History of Salomon fundoplication Family History Father PVD (peripheral vascular disease) Mother Depression Social History Household Members: None Housing: Apartment Do you presently have visiting nurse or other home services: No Alcohol intake: never Patient Tobacco Use Status: Never used Tobacco Second Hand Smoke Exposure: No service: No Current occupational status: disabled Review of Systems Const Reports no additional complaints Eyes Reports no additional complaints ENT Reports no additional complaints Card Reports as per HPI Resp Reports as per HPI GI Reports as per HPI Reports as per HPI Musc Reports no additional complaints Neuro Reports no additional complaints Psych Reports as per HPI Endo Reports no additional complaints Aakash/Lymph Reports no additional complaints Aller/Immun Reports no additional complaints Physical Exam Const General: cooperative, healthy appearing, comfortable, no acute distress, well developed, alert and awake Nutritional Appearance: overweight Orientation/consciousness: patient oriented x3 Limitations: no limitations HEENT Head: Yes normal to inspection, Yes normocephalic and Yes atraumatic Ears: hearing grossly normal bilaterally Eyes General: appearance normal, both eyes and all related structures Neck Neck: Yes normal visual inspection and Yes trachea midline Chest Chest palpation & inspection: normal inspection of the chest Resp Effort & Inspection: normal respiratory effort and able to speak in complete s entences Cardio Rate: regular rate GI Inspection: Yes normal to inspection General: Yes no CVA tenderness Back/Spine/Pelvis Back: no CVA tenderness Skin General skin exam: no rashes or lesions noted Neuro General: patient oriented x3 Extrem General: Yes normal to inspection Psych Appearance: grossly normal and well kempt Mental Status: mental status grossly normal Speech and movement: Normal speech and movement present and Clear speech present Affect: normal affect Attitude: cooperative Thought process: Normal thought process present Thought content: Normal thought content present Insight: Fair insight present (Psych) Judgement: Fair judgement present (Psych) Office Procedures Post Void Residual Post Residual Void Post Void Residual (PVR): 11 59966-[id number] Void Residual by ultrasound Results AMB Urinalysis, Automated UA Leukoctes 125 Devon/uL Last Edit by [employer] on 04/18/24 11:48 UA Nitrite Negative Last Edit by [employer] on 04/18/24 11:48 UA Urobilinogen 0.2 mg/dL Last Edit by [employer] on 04/18/24 11:48 UA Protein 30 mg/dL Last Edit by [employer] on 04/18/24 11:48 UA pH 6.0 Last Edit by [employer] on 04/18/24 11:48 UA Blood 0 Horace/uL Last Edit by [employer] on 04/18/24 11:48 UA Specific [place] 1.025 Last Edit by [employer] on 04/18/24 11:48 UA Ketone Positive Last Edit by [employer] on 04/18/24 11:48 UA Bilirubin 1 mg/dL Last Edit by [employer] on 04/18/24 11:48 UA Glucose 0 mg/dL Last Edit by [employer] on 04/18/24 11:48 Results Reviewed Results Reviewed: Laboratory Last Values Urine pH (Auto) 6.0 04/18/24 11:33 Specific [place] (Auto) 1.025 04/18/24 11:33 Urine Protein (Auto) 30 mg/dL 04/18/24 11:33 Glucose (UA)(Auto) 0 mg/dL 04/18/24 11:33 Urine Ketones (Auto) Positive 04/18/24 11:33 Urine Blood (Auto) 0 Horace/uL 04/18/24 11:33 Urine Nitrite (Auto) Negative 04/18/24 11:33 Urine Bilirubin (Auto) 1 mg/dL 04/18/24 11:33 Urine Urobilinogen (Auto) 0.2 mg/dL 04/18/24 11:33 Leukocyte Esterase (Auto) 125 Devon/uL 04/18/24 11:33 Date of Service: 03/28/24 EXAMINATION: CT ABDOMEN AND PELVIS WITH CONTRAST FINDINGS: LUNG BASES: The visualized lung bases are unremarkable. LIVER, GALLBLADDER, AND BILIARY TREE: The liver is normal in size, shape, and attenuation. No focal hepatic lesion. Status post cholecystectomy with mild biliary prominence and prominent 0.9 cm bile duct which may be normal afterwards. PANCREAS: There is marked fatty replacement of the pancreas SPLEEN: Unremarkable. A calcified splenic granuloma is present. ADRENAL GLANDS: Unremarkable. KIDNEYS AND URETERS: The kidneys are normal in size, shape, and attenuation. No hydronephrosis, hydroureter, or calculi seen. No perinephric stranding. BLADDER: Unremarkable. GASTROINTESTINAL TRACT: A small paraesophageal hernia is present likely secondary to Salomon fundoplication. There is a sigmoid anastomosis without obstruction. There is small bowel obstruction with dilated proximal small bowel and fecalization with decompressed distal small bowel. The transition point is not seen exactly but is in the left mid anterior abdomen (see morris images). The appendix is not seen but there is no evidence of appendicitis evidence of appendicitis. ABDOMINAL WALL: No significant hernia is appreciated. LYMPH NODES: No retroperitoneal lymphadenopathy. VASCULAR: Unremarkable. PELVIC VISCERA: The uterus is not seen. An abnormal adnexal mass is not detected. No free intraperitoneal fluid is present. OSSEOUS STRUCTURES: Degenerative changes are present at L4-L5 with posterior fixation at L5-S1. Is a hemangioma in the T10 vertebral body. CT/CT abdomen pelvis w IV con IMPRESSION: 1. Early small bowel obstruction with transition point in the left mid anterior abdomen. 2. Incidental note made of cholecystectomy, sigmoid anastomosis, marked fatty replacement of the pancreas, hysterectomy and degenerative changes in the spine. Assessment & Plan Assessment & Plan (1) Recurrent urinary tract infection: Code(s): N39.0 - Urinary tract infection, site not specified Category: Medical (2) Nephrolithiasis: Code(s): N20.0 - Calculus of kidney Category: Medical Plan In office urinalysis results reviewed with the patient today; as noted above; will send for urine cytology. Recent CT results reviewed with the patient today; as noted above. Patient currently denies any bothersome urinary issues or concerns. She denies any UTI like symptoms. PVR 11 mL. Discussed at length causes of recurrent urinary tract infections as well as correlation of recurrent UTIs with longstanding history of constipation. Discussed UTI prevention with D mannose supplement, vitamin-C, increasing fluid intake, behavioral therapy with timed voiding, perineal hygiene and postcoital voiding, and management of constipation with stool softeners and increased fiber intake. Discussed possible near future in office cystoscopy if symptoms arise. Discussed further treatment options for recurrent urinary tract infections to include Estrace verses low-dose suppression verses methenamine and vitamin-C. Follow-up in 3 months with PVR; or sooner with any issues, concerns, and or questions. Orders: Orders AMB Post Void Residual by ultrasound 04/18/24 N39.0 - Urinary tract infection, site not specified AMB Urinalysis Automated 04/18/24 Z13.9 - Encounter for screening, unspecified Urine Cytology 04/18/24 N39.0 - Urinary tract infection, site not specified, Z13.9 - Encounter for screening, unspecified Patient Instructions: The patient had an opportunity to ask questions regarding the treatment plan. All questions were answered. Physical exam, labs, and imaging were discussed and reviewed in detail. As well as risks, benefits, and discussion of treatment choices. No major barriers to understanding were identified. The patient expressed understanding and agreement with the above treatment plan. The patient was made aware they should contact our office by phone for worsening of their current condition, the appearance of new symptoms, or with any questions or concerns. Compliance is encouraged with any medications and follow up testing that is ordered. It is a privilege to be allowed the opportunity to participate in? your urological care.? Again, if you have any questions or concerns If you have any questions or concerns please do not hesitate to contact me. The office is [phone]. This note is constructed using voice recognition software. While every effort has been made to ensure accuracy category specialist errors may have been included. Yours sincerely, LIVAN Mata Coding Level of Care Code New Pt Level 3 (84991) Diagnoses Recurrent urinary tract infection N39.0 Nephrolithiasis N20.0 CPT Codes Post Residual Void - PVR CPT Code: 76076-Suic Void Residual by ultrasound ([id number])
== END 2024-04-18 12:02 | disposition home or self-care (01) ==
PROVIDERS: PCP Family Medicine; Visit Provider Nurse Practitioner Family
DX: N39.0 Urinary tract infection, site not specified (principal); N20.0 Calculus of kidney
CPT/HCPCS: 99203

== ENCOUNTER 2024-04-30 11:12 | Outpatient (AMB) | payer OTHER, SELFPAY ==
--- NOTE | 2024-04-30 11:15 | A.OFFVIS_ITS ---
Vital Signs 04/30/24 11:26 Height 5 ft 1 in Weight 210 lb 2 oz BMI 39.7 BP 161/77 H Blood Pressure Location Lt brachial Position Sitting Pulse 75 Intake Visit Reasons: Mid abd pain Intake Note: Patient is seen in office for evaluation and treatment of mid abdomen pain. Pt c/o: onset couple months, went to ED a month ago due to the same issue, gets sudden pain in the abdomen, follow by nausea and vomit, denies diarrhea, constipation CT: 03/28/24 [employer] Required: No Accompanied by: Other Relationship Allergies amlodipine Allergy (Mild, Verified 04/30/24 11:24) Unknown carvedilol Allergy (Mild, Verified 04/30/24 11:24) Unknown chlorthalidone Allergy (Mild, Verified 04/30/24 11:24) Unknown diltiazem Allergy (Mild, Verified 04/30/24 11:24) Unknown lisinopril Allergy (Mild, Verified 04/30/24 11:24) Unknown NSAIDS (Non-Steroidal Anti-Inflamma Allergy (Mild, Verified 04/30/24 11:24) Unknown ibuprofen [From Motrin] Allergy (Verified 04/30/24 11:24) Abdominal Pain Medication List - Last Reconciled 05/02/24 by Darrian Naranjo MD albuterol sulfate 90 mcg/actuation inhalation atorvastatin 1 tab PO BEDTIME bisacodyl 5 mg PO DAILY bupropion HCl XL 150 mg PO DAILY cholecalciferol (vitamin D3) 1 tab PO DAILY clonazepam 1 tab PO TID PRN escitalopram oxalate 1 tab PO DAILY nifedipine ER 1 tab PO BEDTIME omeprazole 1 cap PO DAILY@0630 oxycodone 1 tab PO Q12H PRN oxycodone ER (OxyContin) 1 tab PO BID quetiapine 1 tab PO BEDTIME risperidone 1 tab PO BID HPI Comments Details: 68-year-old female patient returning following a recent hospitalization for small-bowel obstruction. Her past history is significant for hypertension, depression, hypercholesterolemia, chronic kidney disease, asthma, chronic back pain on chronic narcotic. She had a prior sigmoid resection for sigmoid volvulus with colostomy followed by colostomy reversal with colorectal anastomosis. She also underwent a repair of a parastomal hernia, hysterectomy, cholecystectomy and Salomon fundoplication. She was admitted on 03/28/2024 with complaints of abdominal pain for 5 days with associated nausea and vomiting. CT abdomen and pelvis revealed dilated proximal small bowel and fecalization with decompressed distal small bowel consistent with a small-bowel obstruction. She was made NPO and started on IV fluids. By the next hospital day she began p assing flatus. She started on clear liquids and was eventually advanced to a solid diet. She returns today with complaints of some abdominal pain but she continues to eat without nausea or vomiting and is moving her bowels somewhat regularly. She does report severe back pain which is been constant. She has not undergone a previous workup of this back pain. [facility] Medical History Hx of renal calculi Asthma Elevated cholesterol HTN (hypertension) Depression Anxiety Hx of small bowel obstruction GERD (gastroesophageal reflux disease) Surgical History S/P cholecystectomy Hx of exploratory laparotomy (11/2016) History of colon surgery Hx of colonoscopy Hx of hysterectomy, total History of Salomon fundoplication Family History Father PVD (peripheral vascular disease) Mother Depression Social History Household Members: None Housing: Apartment Do you presently have visiting nurse or other home services: No Alcohol intake: never Patient Tobacco Use Status: Never used Tobacco Second Hand Smoke Exposure: No service: No Current occupational status: disabled Review of Systems Const All systems reviewed & are unremarkable except as noted in HPI and below Physical Exam Vital Signs: Last Vital Signs Pulse 75 04/30/24 11:26 BP 161/77 H 04/30/24 11:26 BMI result Body Mass Index 39.7 Const General: no acute distress Nutritional Appearance: well nourished Orientation/consciousness: patient oriented x3 Resp Effort & Inspection: normal respiratory effort GI Inspection: Yes normal to inspection and Yes scar Palpation (GI): Soft to palpation, nontender, no guarding and not rigid Percussion: Yes normal to percussion Auscultation: normal bowel sounds Rectal Exam - Female: deferred Skin General skin exam: no rashes or lesions noted Neuro General: patient oriented x3 Assessment & Plan Assessment & Plan (1) Low back pain: Code(s): M54.50 - Low back pain, unspecified Category: Medical Qualifiers: Chronicity: chronic Back pain laterality: bilateral Sciatica presence: without sciatica Qualified Code(s): M54.50 - Low back pain, unspecified; G89.29 - Other chronic pain (2) Bowel obstruction: Code(s): K56.609 - Unspecified intestinal obstruction, unspecified as to partial versus complete obstruction Category: Medical Qualifiers: Intestinal obstruction type: obstruction due to adhesions Intestinal obstruction extent: partial Qualified Code(s): K56.51 - Intestinal adhesions [bands], with partial obstruction (3) Abdominal pain: Code(s): R10.9 - Unspecified abdominal pain Category: Medical Qualifiers: Abdominal location: generalized Qualified Code(s): R10.84 - Generalized abdominal pain Plan 68-year-old female patient recently admitted for abdominal pain, nausea and vomiting found to have a recurrent small-bowel obstruction due to adhesions. This was treated non operatively and subsequently resolved. She returns today with some abdominal pain but mainly complaining of back pain. This appears to be unrelated to the abdominal issues. Abdominal examination is benign at this time. I suggested evaluation by pain management. She is agreeable to this and a referral has been sent. She should follow up in our office as needed. Orders: Referrals Pain Management Referral M54.50 - Low back pain, unspecified Coding Level of Care Code Est Pt Level 3 (85903) Diagnoses Chronic bilateral low back pain without sciatica M54.50; G89.29 Chronicity: chronic Back pain laterality: bilateral Sciatica presence: without sciatica Intestinal adhesions with partial obstruction K56.51 Intestinal obstruction type: obstruction due to adhesions Intestinal obstruction extent: partial Generalized abdominal pain R10.84 Abdominal location: generalized
[2024-04-30 11:26] VITALS: BP 161/77; PULSE 75; BMI 39.7
== END 2024-04-30 11:36 | disposition home or self-care (01) ==
PROVIDERS: PCP Family Medicine; Visit Provider Surgery
DX: M54.50 Low back pain, unspecified (principal); G89.29 Other chronic pain; K56.51 Intestinal adhesions [bands], with partial obstruction; R10.84 Generalized abdominal pain
CPT/HCPCS: 99213

== ENCOUNTER → 2024-04-30 11:12 | Outpatient (BNVA) | payer OTHER, SELFPAY | PROVIDERS: PCP Family Medicine; Visit Provider Surgery | DX: K56.51 Intestinal adhesions [bands], with partial obstruction (principal); R10.84 Generalized abdominal pain; M54.50 Low back pain, unspecified; G89.29 Other chronic pain; Z90.49 Acquired absence of other specified parts of digestive tract | CPT/HCPCS: 99212 ==

== ENCOUNTER 2024-11-29 11:45 | Outpatient (REF) | payer OTHER, SELFPAY ==
--- NOTE | ~2024-11-29 | MM_ITS ---
EXAMINATION: MM SCREENING DIGITAL BREAST TOMOSYNTHESIS, BILATERAL CLINICAL INFORMATION: Screening. Asymptomatic. COMPARISON: Mammography: Comparison is made with available priors TECHNIQUE: Digital breast mammography with tomosynthesis is performed in both the craniocaudal and mediolateral oblique views along with computer-aided detection (CAD). FINDINGS: The breasts are heterogeneously dense, which may obscure small masses (ACR BI-RADS breast composition Category c). There are no significant masses, abnormal calcifications, or other abnormalities. MM/MM tomosynthesis screening BI IMPRESSION: No mammographic evidence of malignancy. ASSESSMENT: BI-RADS BI-RADS 1 - Negative RECOMMENDATION: Routine annual mammography screening. 1 year F/U This examination should not preclude the clinical evaluation of a suspicious palpable abnormality. This patient's information was entered into a reminder system with a target due date for their next mammogram. Electronically signed by: Francia Cohen DO 12/02/2024 06:26 PM IRENE
--- NOTE | ~2024-11-29 | MM_ITS ---
EXAMINATION: DXA BONE DENSITY AXIAL HISTORY: Estrogen deficiency TECHNIQUE: ASSURED PHARMACY Dual energy absorptiometry (DEXA) of the lumbar spine, total left hip, and femoral neck was performed. COMPARISON: There are no prior studies for comparison. FINDINGS: The bone mineral density of the lumbar spine is 0.869 with a T-score of -2.5, and a Z-score of -1.7. The bone mineral density of the left total hip is 0.798 with a T-score of -1.7, and a Z-score of -0.9. The bone mineral density of the left femoral neck is 0.764 with a T-score of -2.0, and a Z-score of -0.9. MM/XR DEXA axial skeleton IMPRESSION: Based on bone mineral density, and according to World Health Organization (WHO) criteria, the diagnosis is consistent with osteoporosis. All bone density values are in grams per centimeter squared (g/cm2). Statistically, 68% of repeat scans fall within 1 SD (+/- 0.010 g/cm2 for AP spine L1-L4) and 1 SD (+/- 0.012 g/cm2 for femur total) [employer]RAX is a trademark of the [employer] [place] for Metabolic Bone Disease, a World Health Organization (WHO) Collaborating Center. Electronically signed by: Ralph Lord MD 12/02/2024 07:04 AM [facility]
--- OUTSIDE RECORDS SUMMARY | 2024-11-29 14:04 | XMS_ITS | Encounter Summary ---
Author Organization [employer] Address [address] [place] [address] Care Team Providers Care Director Social Name Role Phone Bela Vasquez MD Primary Care Provider [phone] Urban Matta MD Unavailable [phone] Reason for Visit * Reason Onset Date Comments Med Refill 11/11/2024 Encounter Details Date Type Department Care Team ([facility] st Contact Info) Description 11/11/2024 Refill [facility] MED & PEDS [address] [place] [address] Melba Savage, INÉS [address] [place] [address] Lumbar post-laminectomy syndrome Social History Tobacco Use Types Packs/Day Years Used Date Smoking Tobacco: Former Cigarettes Passive Smoke Exposure: Past Smokeless Tobacco: Former Alcohol Use Standard Drinks/Week Comments Defer 0 (1 standard drink = 0.6 oz pur e alcohol) Alcohol Answer Date Recorded Frequency of Alcohol Consumption Not on file 06/24/2024 Average Number of Drinks Not on file 024 Frequency of Binge Drinking Not on file 06/03 Score 0 06/24/2024 Depression Answer Date Recorded Patient Health Questionnaire-9 Score 3 06/24/2024 Patient Health Questionnaire-9 Score 3 06/24/2024 Last PHQ-9: Questionnaire Data Not on file 0 06/24/2024 Housing Stability Answer Date Recorded What is your housing situation today? I have bertin joy 07/21/[address] you li ve. Do you have problems with any of the following? None of the above 07/21/2023 Food Insecurity Answer Date Recorded Within the past 12 months, y ou worried that your food would run out before you got money to buy more: Never True 07/21/2023 Within the past 12 months,th e food you bought just didn't last and you didn't have enough money to get more: Never True Transportation Answer Date Recorded In the past 12 months, has l ack of transportation kept you from medical appts, meetings, work or from getting things needed for daily living? No 07/21/2023 Utilities Answer Date Recorded In the past 12 months, has t he [employer], gas, oil or water company threatened to shut off services in your home? No 07/21/2023 Depression Answer Date Recorded Patient Health Questionnaire-2 Score 0 06/24/2024 Comments Unknown Sex and Gender Information Value Date Recorded Sex Assigned at Female 08/01/2022 10:14 AM EDT Legal Sex Female 10:14 AM EDT Gender Identity Female 08/01/2022 10:14 AM EDT Sexual Orientation Lesbian or Rico 08/01/2022 10 :14 AM EDT documented as of this encounter Plan of Treatment Upcoming Encounters Date Type Department Care Team (Late st Contact Info) Description 01/14/2025 1:00 PM EDT Clinical Support [facility] MED & PEDS [address] [place] [address] Melba Savage, INÉS [address] [place] [address] 02/20/2025 1:00 PM EDT Office Visit [facility] ADULT DENTAL [address] [place] [address] Rosa Calderon documented as of this encounter Visit Diagnoses Diagnosis Lumbar post-laminectomy syndrome Postlaminectomy syndrome, lumbar region documented in this encounter Additional Health Concerns Assessment Noted Time PHQ-9 Depression Total Score: 3 06/24/20 24 1:09 PM EDT documented as of this encounter Care Teams Director Social Relationship Specialty Start Date End Date Bela Vasquez MD [address] [place] [address] PCP - General Family Medicine 10/02/18 Urban Matta MD [address] [place] [address] Nephrology 08/27/24 documented as of this encounter
--- OUTSIDE RECORDS SUMMARY | 2024-11-29 14:04 | XMS_ITS | Encounter Summary ---
Author Organization [employer] Address [address] [place] [address] Care Team Providers Care Customs Investigator Name Role Phone Bela Vasquez MD Primary Care Provider [phone] Urban Matta MD Unavailable [phone] Reason for Visit * Reason Onset Date Comments Med Refill 11/04/2024 Encounter Details Date Type Department Care Team ([facility] st Contact Info) Description 11/04/2024 Refill [facility] MED & PEDS [address] [facility] [place] [address] Melba Savage, INÉS [address] [place] [address] Lumbar radiculopathy; Central abdominal pain Social History Tobacco Use Types Packs/Day Years [...] the past 12 months, has t he electric, gas, oil or water company threatened to [...] Description 01/14/2025 1:00 PM EDT Clinical Support [facility] MED & PEDS [address] [place] [address] Melba Savage, INÉS [address] [place] [address] 02/20/2025 1:00 PM EDT Office Visit [facility] ADULT DENTAL [address] [place] [address] Rosa Calderon documented as of this encounter Visit Diagnoses Diagnosis Lumbar radiculopathy Thoracic or lumbosacral neuritis or radiculitis, unspecified Central abdominal pain documented in this encounter Additional Health Concerns Assessment Noted Time PHQ-9 Depression Total Score: 3 06/24/20 24 1:09 PM EDT documented as of this encounter Care Teams Customs Investigator Relationship Specialty Start Date End Date Bela Vasquez MD [address] [place] [address] PCP - General Family Medicine 10/02/18 Urban Matta MD [address] [place] [address] Nephrology 08/27/24 documented as of this encounter
--- OUTSIDE RECORDS SUMMARY | 2024-11-29 14:04 | XMS_ITS | Encounter Summary ---
Author Organization [employer] Address [address] [place] [address] Care Team Providers Care Physically Impaired Teacher Name Role Phone Bela Vasquez MD Primary Care Provider [phone] Urban Matta MD Unavailable [phone] Encounter Details Date Type Department Care Team (Latest Contact Info) Description 10/31/2024 Travel Social History Tobacco Use Types Packs/Day Years [...] Description 01/14/2025 1:00 PM EDT Clinical Support [facility] MED & PEDS [address] [place] [address] Melba Savage RN [address] [place] [address] 02/20/2025 1:00 PM EDT Office Visit [facility] ADULT DENTAL [address] [place] [address] Rosa Calderon documented as of this encounter Visit Diagnoses Not on filedocumented in this encounter Additional Health Concerns Assessment Noted Time PHQ-9 Depression Total Score: 3 06/24/20 24 1:09 PM EDT documented as of this encounter Care Teams Physically Impaired Teacher Relationship Specialty Start Date End Date Bela Vasquez MD [address] [place] [address] PCP - General Family Medicine 10/02/18 Urban Matta MD [address] [place] [address] Nephrology 08/27/24 documented as of this encounter
--- OUTSIDE RECORDS SUMMARY | 2024-11-29 14:04 | XMS_ITS | Encounter Summary ---
Author Organization [employer] Address [address] [facility] [address] [place] [address] Care Team Providers Care Planer Operator / Grader Name Role Phone Bela Vasquez MD Primary Care Provider [phone] Urban Matta MD Unavailable Reason for Visit * Reason Comments Med Refill Encounter Details Date Type Department Care Team ([facility] st Contact Info) Description 11/27/2024 Refill [facility] MEDICINE [address] [place], [place] [phone] Bela Vasquez MD [address] [place], [place] [phone] Dyslipidemia Social History Tobacco Use Types Packs/Day Years [...] the past 12 months, has t he [employer], gas, oil or water company threatened to [...] Description 01/14/2025 1:00 PM EDT Clinical Support [facility] P[facility] [address] [place] [address] Melba Savage, INÉS [address] [place] [address] 02/20/2025 1:00 PM EDT Office Visit [facility] ADULT DENTAL [address] [place] [address] Rosa Calderon documented as of this encounter Visit Diagnoses Diagnosis Dyslipidemia Other and unspecified hyperlipidemia documented in this encounter Additional Health Concerns Assessment Noted Time PHQ-9 Depression Total Score: 3 06/24/20 24 1:09 PM EDT documented as of this encounter Care Teams Planer Operator / Grader Relationship Specialty Start Date End Date Bela Vasquez MD [address] [place] [address] PCP - General Family Medicine 10/02/18 Urban Matta MD [address] [place] [id number] Nephrology 08/27/24 documented as of this encounter
--- OUTSIDE RECORDS SUMMARY | 2024-11-29 14:04 | XMS_ITS | Encounter Summary ---
Author Organization [employer] Address [address] [facility] [address] [place] [address] Care Team Providers Care Hotel Director Name Role Phone Bela Vasquez MD Primary Care Provider [phone] Urban Matta MD Unavailable [phone] Reason for Visit * Reason Onset Date Comments Med Refill 11/11/2024 Encounter Details Date Type Department Care Team (Late st Contact Info) Description 11/11/2024 Telephone [facility] MEDICINE [address] [place], [place] [phone] Bela Vasquez MD [address] [place], [place] [phone] Med Refill Social History Tobacco Use Types Packs/Day Years [...] the past 12 months, has t he [employer], gas, oil or water company threatened to [...] AM EDT documented as of this encounter Miscellaneous Notes * Telephone Encounter - Elmo Lee - 11/11/2024 10:53 AM EST TC from pt requesting medication refill. Medications needing refill: oxyCODONE ER (OxyCONTIN) 10 MG 12 hr tablet To be sent to: [id number] - [place], [place] - [address] [place] [address] AT [facility] documented in this encounter Plan of Treatment Upcoming Encounters Date Type Department Care Team ([facility] st Contact Info) Description 01/14/2025 1:00 PM EDT Clinical Support [facility] MED & PEDS [address] [place] [address] Melba Savage, INÉS [address] [place] [address] 02/20/2025 1:00 PM EDT Office Visit [facility] ADULT DENTAL [address] [place] [address] Rosa Calderon documented as of this encounter Visit Diagnoses Not on filedocumented in this encounter Additional Health Concerns Assessment Noted Time PHQ-9 Depression Total Score: 3 06/24/20 24 1:09 PM EDT documented as of this encounter Care Teams Hotel Director Relationship Specialty Start Date End Date Bela Vasquez MD [address] [place] [address] PCP - General Family Medicine 10/02/18 [place] [address] [place] [id number] Nephrology 08/27/24 documented as of this encounter
--- OUTSIDE RECORDS SUMMARY | 2024-11-29 14:04 | XMS_ITS | Clinical Summary ---
Author Organization [employer] Address [address] [place] [address] [address] [place] [address] Care Team Providers Care Biblical Languages Professor Name Role Phone Bela Vasquez MD Primary Care Provider [phone] Urban Matta MD Unavailable [phone] Allergies Active Allergy Reactions Criticality Noted Date Comments Amlodipine Unknown Low 04/02/2020 Carvedilol Unknown Low 04/02/2020 Chlorthalidone Unknown Low 04/02/2020 Other reaction(s): acute kidney injury Diltiazem Unknown Low 04/02/2020 Ibuprofen Unknown,Abdominal Pain 02/02/2020 Other Reaction(s): abd pain Other reaction(s): abd pain Lisinopril Unknown Low 04/02/2020 Nsaids Other,Unknown Low Other reaction(s): unspecified Medications albuterol (2.5 MG/3ML) 0.083% nebulizer solution inhale 3 milliliter (2.5MG) by nebulization route every 4-6 hours as needed for difficulty breathing, up to 4 times/day as needed 019 Active risperiDONE (RisperDAL) 0.5 MG tablet Take 1 tablet by mouth every 12 (twelve) hours. Active QUEtiapine (SEROquel) 400 MG tablet Take 1 tablet by mouth. Active NIFEdipine XL (Procardia XL) 60 MG 24 hr tablet Take 1 tablet by mouth. Active escitalopram (Lexapro) 10 MG tablet Take 1 tablet by mouth. Active clonazePAM (KlonoPIN) 1 MG tablet take 1 Tablet by Oral route 3 times every day as needed Active buPROPion XL (Wellbutrin XL) 150 MG 24 hr tablet Take 1 tablet by mouth. Active buPROPion XL (Wellbutrin XL) 300 MG 24 hr tablet Take 300 mg by mouth in the morning. 023 Active acetaminophen (Tylenol) 500 MG tablet Take 1 tablet (500 mg) by mouth every 6 (six) hours if needed for mild pain for up to 20 doses. 20 tablet 024 Active bisacodyl (Bisacodyl EC) 5 MG EC tabletIndicatio ns:Constipation , unspecified constipation type TAKE 1 TO 2 TABLETS BY MOUTH EVERY 3 DAYS NEEDED FOR CONSTIPATION 30 tablet 1 024 Active omeprazole (PriLOSEC) [address] capsuleIndicati ons:Gastroesoph ageal reflux disease, unspecified whether esophagitis present TAKE 1 CAPSULE(20 MG) BY MOUTH TWICE DAILY EVERY DAY BEFORE A MEAL 180 capsule 1 024 Active albuterol 108 (90 Base) MCG/ACT inhalerIndicati ons:Bronchitis INHALE 2 PUFFS BY MOUTH EVERY 4 TO 6 HOURS NEEDED 8.5 g 3 024 Active naloxone (Narcan) 4 mg/0.1 mL nasal spray Administer 1 spray (4 mg) into affected nostril(s) if needed for opioid reversal. May repeat every 2-3 minutes if needed, alternating nostrils, until medical assistance becomes available. 2 each 1 024 Active cholecalciferol (Vitamin D3) 25 MCG (1000 UT) tabletIndicatio ns:Vitamin D deficiency TAKE 1 TABLET BY MOUTH IN THE MORNING 90 tablet 3 025 Active Sodium Fluoride 1.1 % cream Radom teeth for 2 minutes, morning and night. Spit, do not rinse. Do not eat or drink anything for 30 minutes following use. 112 g 3 025 Active oxyCODONE (Roxicodone) 5 MG immediate release tabletIndicatio ns:Lumbar radiculopathy,C entral abdominal pain Take 1 tablet (5 mg) by mouth every 12 (twelve) hours if needed for severe pain. 61 tablets per 28 days. 5 additional dose per month for breakthrough pain 59 tablet 025 Active oxyCODONE ER (OxyCONTIN) 10 MG 12 hr tabletIndicatio ns:Lumbar post-laminectom y syndrome Take 1 tablet (10 mg) by mouth every 12 (twelve) hours for 28 days. 56 tablet 025 2024 Active atorvastatin (Lipitor) 40 MG tabletIndicatio ns:Dyslipidemia TAKE 1 TABLET(40 MG) BY MOUTH IN THE MORNING 90 tablet 1 025 Active atorvastatin (Lipitor) 40 MG tabletIndicatio ns:Dyslipidemia TAKE 1 TABLET(40 MG) BY MOUTH IN THE MORNING 90 tablet 1 024 2024 Discontinued oxyCODONE ER (OxyCONTIN) 10 MG 12 hr tabletIndicatio ns:Lumbar post-laminectom y syndrome Take 1 tablet (10 mg) by mouth every 12 (twelve) hours for 28 days. Do not start before October 10, 2024. 56 tablet 025 2024 Discontinued(R eorder (will not trigger notification to Pharmacy)) oxyCODONE (Roxicodone) 5 MG immediate release tabletIndicatio ns:Lumbar radiculopathy,C entral abdominal pain Take 1 tablet (5 mg) by mouth every 12 (twelve) hours if needed for severe pain. 61 tablets per 28 days. 5 additional dose per month for breakthrough pain 59 tablet 025 2024 Discontinued(R eorder (will not trigger notification to Pharmacy)) Active Problems Problem Noted Date Diagnosed Date Dental caries into pulp 10/25/2024 Tooth demineralization 10/25/2024 Leukocytosis 10/18/2024 Assessment & Plan (10/18/2024 11:01 AM EST): - she does not smoke cigarettes - stable - continue monitoring with periodic lab Memory problem 07/04/2024 Assessment & Plan (07/04/2024 12:15 PM EDT): - normal clock drawing; difficulty with recall and math - no focal deficit - patient has tremor - stress reduction and continue working with behavioral health service provider - no rapid progression Dysphagia 07/04/2024 Assessment & Plan (07/04/2024 12:36 PM EDT): - suggestive of esophageal dysphagia - history of hiatal hernia and fundplication - last EGD in 2010 - continue omeprazole - will refer her to her GI for possible EGD evaluation if her symptoms worsen Dental calculus 05/29/2024 Chronic periodontitis 04/26/2024 Partial edentulism 04/26/2024 Episode of dizziness 03/14/2024 Assessment & Plan (03/14/2024 11:17 AM EDT): -pt did note to have orthostatic hypotension -advised her to call if it reoccurs and to check BP at home when episodes of dizziness occur -will consider head CT and carotid US Central abdominal pain 03/14/2024 Assessment & Plan (07/04/2024 12:05 PM EDT): -hx of extensive abdominal surgery -evaluated by general surgeon. Patient's pain was mostly back pain. Referred to pain management. -continue judicious use of oxycodone as patient is having recurrent SBO. -proactive bowel regimen Assessment & Plan (03/14/2024 11:15 AM EDT): -hx of extensive abdominal surgery -will refer to [facility] -will increase oxycodone 5 additional tablets for breakthrough pain Chronic, continuous use of opioids 08/25/2023 Assessment & Plan (06/28/2024 5:38 PM EDT): - continue judicious use under [employer] agreement - suggested opioid rotation, but patient was hesitant to trying a different opioid Assessment & Plan (03/14/2024 8:51 AM EDT): - continue judicious use under [employer] agreement - suggested opioid rotation, but patient was hesitant to trying a different opioid Assessment & Plan (01/01/2024 8:53 AM EDT): - continue judicious use under [employer] agreement - suggested opioid rotation, but patient was hesitant to trying a different opioid Assessment & Plan (08/25/2023 6:34 AM EST): - continue judicious use under [employer] agreement Postoperative back pain 02/01/2023 Depressive disorder 02/01/2023 Status post colostomy takedown 02/01/2023 Assessment & Plan (03/15/2024 7:18 AM EDT): - s/p exp laparotomy, LEELA, SB enterotomy repair, colostomy takedown, anastomosis descending and rectosigmoid colon, closure of colostomy site and repair of stomal hernia on 12/23/16 - SBO in Aug 2019, December 2021, April 2022 Assessment & Plan (08/25/2023 6:24 AM EST): - s/p exp laparotomy, LEELA, SB enterotomy repair, colostomy takedown, anastomosis descending and rectosigmoid colon, closure of colostomy site and repair of stomal hernia on 12/23/16 - SBO in Aug 2019, December 2021, April 2022 Assessment & Plan (02/01/2023 6:12 AM EDT): - s/p exp laparotomy, LEELA, SB enterotomy repair, colostomy takedown, anastomosis descending and rectosigmoid colon, closure of colostomy site and repair of stomal hernia on 12/23/16 - Encouraged to contact Dr. Membreno's office if there is abdominal pain at surgical area. - SBO in Aug 2019, December 2021, April 2022 Failed back syndrome 02/01/2023 Assessment & Plan (10/18/2024 10:59 AM EST): - Prior to having surgery and prolonged hospitalization for volvulus, her pain was treated with tramadol. She was discharged with opioid analgesics after long hospital stay and usp facility. - Continue COT - COT agreement renewed - Recommended acupuncture - Recommended to explore complementary alternative medicine. - Lidoderm patch was not approved, will try prescribing again - Consider diclofenac patch, although it is NSAID Assessment & Plan (03/14/2024 8:52 AM EDT): - Prior to having surgery and prolonged hospitalization for volvulus, her pain was treated with tramadol. She was discharged with opioid analgesics after long hospital stay and usp facility. - Continue COT - COT agreement renewed and signed today 06/20/19 - Recommended acupuncture - Recommended to explore complementary alternative medicine. - Lidoderm patch was not approved, will try prescribing again - Consider diclofenac patch, although it is NSAID Assessment & Plan (01/01/2024 8:51 AM EDT): - Prior to having surgery and prolonged hospitalization for volvulus, her pain was treated with tramadol. She was discharged with opioid analgesics after long hospital stay and usp facility. - Continue COT - COT agreement renewed and signed today 06/20/19 - Recommended acupuncture - Recommended to explore complementary alternative medicine. - Lidoderm patch was not approved, will try prescribing again - Consider diclofenac patch, although it is NSAID Assessment & Plan (08/25/2023 6:26 AM EST): - Prior to having surgery and prolonged hospitalization for volvulus, her pain was treated with tramadol. She was discharged with opioid analgesics after long hospital stay and usp facility. - Continue COT - COT agreement renewed and signed today 06/20/19 - Recommended acupuncture - Recommended to explore complementary alternative medicine. - Lidoderm patch was not approved, will try prescribing again - Consider diclofenac patch, although it is NSAID Assessment & Plan (02/01/2023 12:30 PM EDT): - Prior to having surgery and prolonged hospitalization for volvulus, her pain was treated with tramadol. She was discharged with opioid analgesics after long hospital stay and usp facility. - Continue COT - COT agreement renewed and signed today 06/20/19 - Recommended acupuncture - Recommended to explore complementary alternative medicine. - Lidoderm patch was not approved, will try prescribing again - Consider diclofenac patch, although it is NSAID History of small bowel obstruction 02/01/2023 Assessment & Plan (07/04/2024 12:08 PM EDT): - recurrent -most recent hospitalization in March 2024. No surgical intervention. Usually resolve with 1-2 days of bowel rest. -Pt states she was seen by Dr. Giles in 2021 -Discussed about side-effect of Oxycodone which may increase episode of SBO, pt verbalized understanding. Assessment & Plan (08/25/2023 6:25 AM EST): - recurrent -Hospitalization 12/31-01/04 2022. Treated with NG tube, IVF, and bowel rest -Most recent admission from 04/20 - 04/27 2022. Treated with NG-Tube, NPO and IVF. -Pt states she was seen by Dr. Giles in 2021 -Discussed about side-effect of Oxycodone which may increase episode of SBO, pt verbalized understanding. Assessment & Plan (02/01/2023 6:24 AM EDT): - recurrent -Hospitalization 12/31-01/04 2022. Treated with NG tube, IVF, and bowel rest -Most recent admission from 04/20 - 04/27 2022. Treated with NG-Tube, NPO and IVF. -Pt referred to GI after previous visit in JANUARY, we confirmed appt today which is MAY 31, 2022, Dr. Giles. -Discussed about side-effect of Oxycodone which may increase episode of SMO, pt verbalized understanding. Constipation 02/01/2023 Assessment & Plan (06/28/2024 5:37 PM EDT): - Multifactorial (pt is on oxycodone) - Continue Bisacodyl and Senna - continue current laxative - last SBO / severe constipation in April 2022 - last Colonoscopy 07/08/22; results showed internal hemorrhoids but otherwise normal Assessment & Plan (02/01/2023 6:16 PM EDT): - Multifactorial (pt is on oxycodone) - Continue Bisacodyl and Senna - continue current laxative - last SBO / severe constipation in April 2022 - last Colonoscopy 07/08/22; results showed internal hemorrhoids but otherwise normal Night sweats 02/01/2023 Assessment & Plan (02/01/2023 12:20 PM EDT): Will check labs Her Urologist is checking Renal US on 02/07/23 History of operative procedu re on lumbosacral spinal structure 08/23/2022 Urinary incontinence 08/10/2016 Assessment & Plan (06/28/2024 5:37 PM EDT): - check UA and urine culture, although unlikely to be infectious - most likely mixed - refer to urology for further evaluation and management Assessment & Plan (01/01/2024 8:50 AM EDT): - check UA and urine culture, although unlikely to be infectious - most likely mixed - refer to urology for further evaluation and management History of colectomy 07/22/2016 Assessment & Plan (03/15/2024 7:19 AM EDT): - s/p reduction of sigmoid volvulus and colectomy by Dr. Swan on 03/21/16 - s/p exploratory laparotomy and drainage of intraabdominal abscess on 04/03/16 Assessment & Plan (08/25/2023 6:26 AM EST): - s/p reduction of sigmoid volvulus and colectomy by Dr. Swan on 03/21/16 - s/p exploratory laparotomy and drainage of intraabdominal abscess on 04/03/16 Assessment & Plan (02/01/2023 6:07 AM EDT): - s/p reduction of sigmoid volvulus and colectomy by Dr. Swan on 03/21/16 - s/p exploratory laparotomy and drainage of intraabdominal abscess on 04/03/16 Allergic rhinitis 09/14/2015 Impaired fasting glucose 09/14/2015 Assessment & Plan (10/11/2024 5:10 AM EST): - 02/01/23 A1C 5.4% Assessment & Plan (06/28/2024 5:38 PM EDT): - 02/01/23 A1C 5.4% Assessment & Plan (01/01/2024 8:51 AM EDT): - 02/01/23 A1C 5.4% Assessment & Plan (08/25/2023 6:23 AM EST): - 02/01/23 A1C 5.4% Chronic kidney disease, stage III (moderate) 04/2015 Assessment & Plan (06/28/2024 5:37 PM EDT): Followed by Dr. Matta, software engineer, last appt on 08/01/23. - likely hypertensive nephrosclerosis - Hx TIMOTHY requiring short-term HD in 2016 - Avoid nephrotoxic drugs - Optimize BP management - Renal dose medication Assessment & Plan (03/14/2024 8:51 AM EDT): Followed by Dr. Matta, software engineer, last appt on 08/01/23. - likely hypertensive nephrosclerosis - Hx TIMOTHY requiring short-term HD in 2016 - Avoid nephrotoxic drugs - Optimize BP management - Renal dose medication Assessment & Plan (01/01/2024 8:50 AM EDT): Followed by Dr. Matta, software engineer, last appt on 08/01/23. - likely hypertensive nephrosclerosis - Hx TIMOTHY requiring short-term HD in 2015 - Avoid nephrotoxic drugs - Optimize BP management - Renal dose medication Assessment & Plan (08/25/2023 6:23 AM EST): Followed by Dr. Matta, software engineer, last appt on 08/01/23. - likely hypertensive nephrosclerosis - Hx TIMOTHY requiring short-term HD in 2015 - Avoid nephrotoxic drugs - Optimize BP management - Renal dose medication Assessment & Plan (02/01/2023 12:28 PM EDT): Followed by Dr. Matta, software engineer, last appt on 10/18/22. - likely hypertensive nephrosclerosis - Hx TIMOTHY requiring short-term HD in 2016 - Avoid nephrotoxic drugs - Optimize BP management - Renal dose medication Anxiety 12/12/2012 Assessment & Plan (08/25/2023 6:31 AM EST): - Bipolar or MDD with anxiety - S providers: Jaguar Sigala - Medications are prescribed by [facility] provider - Continue clonazepam 1 mg bid - Continue risperidone 0.5 mg bid - Continue bupropion XL 300 mg daily - Continue Lexapro 10 mg daily - Continue quetiapine 400 mg daily - Treatment Hx: Previously tried Duloxetine - Work on stress reduction - She was able to contract her safety today Assessment & Plan (02/01/2023 6:23 PM EDT): - Bipolar or MDD with anxiety - [facility] providers: Jaguar Sigala - Medications are prescribed by [facility] provider - Continue clonazepam 1 mg bid - Continue risperidone 0.5 mg bid - Continue bupropion XL 150 mg daily - Continue Lexapro 10 mg daily - Continue quetiapine 400 mg daily - Treatment Hx: Previously tried Duloxetine - Work on stress reduction - She was able to contract her safety today Anemia 07/24/2012 Asthma 07/24/2012 Assessment & Plan (12/19/2023 5:54 AM EDT): Most recent exacerbation in December 2023, Dx bronchitis. Rx azithromycin and albuterol. Continue albuterol inhaler and nebulizer solution Assessment & Plan (02/01/2023 6:15 PM EDT): Continue albuterol inhaler and nebulizer solution Mood disorder 07/24/2012 Assessment & Plan (10/18/2024 11:00 AM EST): - continue current treatment plan per current [facility] provider - on BZD Assessment & Plan (06/28/2024 5:38 PM EDT): - continue current treatment plan per current [facility] provider - on BZD Assessment & Plan (03/14/2024 8:52 AM EDT): - continue current treatment plan per current [facility] provider - on BZD Assessment & Plan (01/01/2024 8:51 AM EDT): - continue current treatment plan per current [facility] provider - on BZD Assessment & Plan (08/25/2023 6:27 AM EST): - continue current treatment plan per current [facility] provider - on BZD Dyslipidemia 07/24/2012 Assessment & Plan (10/11/2024 5:10 AM EST): - current medication: Atorvastatin 40 mg at bedtime - last lipid profile: 6/27/24 - continue working on lifestyle modifications Assessment & Plan (07/04/2024 12:10 PM EDT): - current medication: Atorvastatin 40 mg at bedtime - last lipid profile: 03/28/24 - continue working on lifestyle modifications Assessment & Plan (01/01/2024 8:51 AM EDT): - current medication: Atorvastatin 40 mg at bedtime - last lipid profile: 02/01/23 TC 144; TG 119; HDL 68; LDL 55 - continue working on lifestyle modifications - check lipid profile Assessment & Plan (08/25/2023 6:27 AM EST): - current medication: Atorvastatin 40 mg at bedtime - last lipid profile: 02/01/23 TC 144; TG 119; HDL 68; LDL 55 - continue working on lifestyle modifications - check lipid profile Assessment & Plan (02/01/2023 6:19 PM EDT): - current medication: Atorvastatin 40 mg at bedtime - last lipid profile: Sep 2020, overdue - continue working on lifestyle modifications - check lipid profile Gastroesophageal reflux disease 07/24/2012 Hypertension 07/24/2012 Assessment & Plan (10/11/2024 5:09 AM EST): -Goal BP < 140/90 per JNC-8 and < 130/80 per ACC/AHA guideline (Treatment threshold >= 130/80) - Current medication: nifedipine 60 mg daily - Occasionally questionable medication adherence - Discussed about the importance of lifestyle modifications and medication adherence. - Continue checking home BP everyday - treatment history: diltiazem was discontinued due to intolerance; Lisinopril was self-discontinued; carvedilol was self-discontinued due to diarrhea; chlorthalidone was discontinued due to TIMOTHY; amlodipine was discontinued -Dr. Matta was planning to evaluate er with h24-hr BP monitoring if indicated in the future -Consider sleep study if refractory -Follow up in 3-6 mo, sooner if any problem arises Assessment & Plan (06/28/2024 5:37 PM EDT): -Goal BP < 140/90 per JNC-8 and < 130/80 per ACC/AHA guideline (Treatment threshold >= 130/80) - Current medication: nifedipine 60 mg daily - Occasionally questionable medication adherence - Discussed about the importance of lifestyle modifications and medication adherence. - Continue checking home BP everyday - treatment history: diltiazem was discontinued due to intolerance; Lisinopril was self-discontinued; carvedilol was self-discontinued due to diarrhea; chlorthalidone was discontinued due to TIMOTHY; amlodipine was discontinued -Dr. Matta was planning to evaluate er with h24-hr BP monitoring if indicated in the future -Consider sleep study if refractory -Follow up in 3-6 mo, sooner if any problem arises Assessment & Plan (03/15/2024 7:17 AM EDT): -Goal BP < 140/90 per JNC-8 and < 130/80 per ACC/AHA guideline (Treatment threshold >= 130/80) - Current medication: nifedipine 60 mg daily - Occasionally questionable medication adherence - Discussed about the importance of lifestyle modifications and medication adherence. - Continue checking home BP everyday - treatment history: diltiazem was discontinued due to intolerance; Lisinopril was self-discontinued; carvedilol was self-discontinued due to diarrhea; chlorthalidone was discontinued due to TIMOTHY; amlodipine was discontinued -Dr. Matta was planning to evaluate er with h24-hr BP monitoring if indicated in the future -Consider sleep study if refractory -Follow up in 3-6 mo, sooner if any problem arises Assessment & Plan (01/01/2024 8:49 AM EDT): -Goal BP < 140/90 per JNC-8 and < 130/80 per ACC/AHA guideline (Treatment threshold >= ) - Current medication: nifedipine 60 mg daily - Questionable medication adherence / poor medical literacy - Discussed about the importance of lifestyle modifications and medication adherence. - Advised to check BP everyday - treatment history: diltiazem was discontinued due to intolerance; Lisinopril was self-discontinued; carvedilol was self-discontinued due to diarrhea; chlorthalidone was discontinued due to TIMOTHY; amlodipine was discontinued -Dr. Matta was planning to evaluate er with h24-hr BP monitoring if indicated in the future -Consider sleep study if refractory -Follow up in 3-6 mo, sooner if any problem arises Assessment & Plan (08/25/2023 6:22 AM EST): -Goal BP < 140/90 per JNC-8 and < 130/80 per ACC/AHA guideline (Treatment threshold >= ) - Current medication: nifedipine 60 mg daily - Questionable medication adherence / poor medical literacy - Discussed about the importance of lifestyle modifications and medication adherence. - Advised to check BP everyday - treatment history: diltiazem was discontinued due to intolerance; Lisinopril was self-discontinued; carvedilol was self-discontinued due to diarrhea; chlorthalidone was discontinued due to TIMOTHY; amlodipine was discontinued -Dr. Matta was planning to evaluate er with h24-hr BP monitoring if indicated in the future -Consider sleep study if refractory -Follow up in 3-6 mo, sooner if any problem arises Assessment & Plan (02/01/2023 6:26 AM EDT): -Goal BP < 140/90 per JNC-8 and < 130/80 per ACC/AHA guideline (Treatment threshold >= ) - Current medication: nifedipine 60 mg daily - Questionable medication adherence / poor medical literacy - Discussed about the importance of lifestyle modifications and medication adherence. - Advised to check BP everyday - treatment history: diltiazem was discontinued due to intolerance; Lisinopril was self-discontinued; carvedilol was self-discontinued due to diarrhea; chlorthalidone was discontinued due to TIMOTHY; amlodipine was discontinued -Dr. Matta was planning to evaluate er with h24-hr BP monitoring if indicated in the future -Consider sleep study if refractory -Follow up in 3-6 mo, sooner if any problem arises Lumbar post-laminectomy syndrome 07/24/2012 Lumbar radiculopathy 07/24/2012 Assessment & Plan (06/28/2024 5:37 PM EDT): - currently taking oxycodone under [employer] - suggested we try other treatment modalities before increasing oxycodone, such as acupuncture - patient was hesitant to make a commitment to any of the suggested modalities - continue current medications Assessment & Plan (03/14/2024 8:51 AM EDT): - currently taking oxycodone under [employer] - suggested we try other treatment modalities before increasing oxycodone, such as acupuncture - patient was hesitant to make a commitment to any of the suggested modalities - continue current medications Assessment & Plan (01/01/2024 8:48 AM EDT): - currently taking oxycodone under [employer] - suggested we try other treatment modalities before increasing oxycodone, such as acupuncture - patient was hesitant to make a commitment to any of the suggested modalities - continue current medications Obesity 07/24/2012 Resolved Problems Problem Noted Date Diagnosed Date Resolved Date Cellulitis 06/20/2024 06/24/2024 Diagnosis unknown 06/20/2024 07/04/2024 Bronchitis 12/07/2023 12/19/2023 Assessment & Plan (12/07/2023 11:41 AM EST): Drink plenty of fluids and rest, patient will be contacted with XRAY results, ED precautions where reviewed with patient Encounters Date Type Department Care Team Description 11/27/2024 Refill [facility] MED[facility] 230 [place] [address] Bela Vasquez MD Dyslipidemia 11/20/2024 Telephone [facility] MEDICINE [address] [place] [address] Diana Keller [place] turner recall 11/11/2024 Refill [facility] [address] [place] [address] Melba Savage RN Lumbar post-laminectomy syndrome 11/11/2024 Telephone [facility] MEDICINE [address] [place] [address] Bela Vasquez MD Med Refill 11/08/2024 1:15 PM EST Office Visit [facility] ADULT DENTAL [address] [place] [address] Ritchie David DDS Partial edentulism, unspecified edentulism class (Primary Dx) 11/04/2024 Refill [facility] CHC MED & PEDS [address] [place] [address] Melba Savage RN Lumbar radiculopathy; Central abdominal pain 11/04/2024 Telephone [facility] [address] [place] [address] Bela Vasquez MD Med Refill 11/04/2024 Telephone [facility] ADULT DENTAL [address] [place] [address] Ritchie David DDS 10/31/2024 11:00 AM EST Clinical Support [facility] [address] [place] [address] Melba Savage RN Lumbar radiculopathy 10/31/2024 Travel 10/31/2024 Telephone [facility] [address] [place] [address] Melba Savage RN 10/28/2024 9:00 AM EST Office Visit [facility] ADULT DENTAL [address] [place] [address] Ritchie David DDS Dental caries into pulp (Primary Dx) 10/25/2024 1:30 PM EST Office Visit [facility] ADULT DENTAL [address] [place] [address] Ritchie David DDS Dental caries (Primary Dx); Tooth demineralization 10/10/[address] [address] Bela Vasquez MD Vitamin D deficiency 10/08/2024 1:30 PM EST Telemedicine [address] [address] Bela Vasquez MD Primary hypertension (Primary Dx); Dyslipidemia; Impaired fasting glucose; Anemia, unspecified type; Leukocytosis, unspecified type; Failed back syndrome; Mood disorder ([facility]) 10/08/2024 Travel 10/08/[address] [address] Bela Vasquez MD Lumbar post-laminectomy syndrome; Lumbar radiculopathy; Central abdominal pain 09/27/2024 11:00 AM EST Office Visit [facility] ADULT DENTAL [address] [place] [address] Jie Juarez Chronic periodontitis (Primary Dx); Dental calculus 09/26/2024 Telephone [facility] ADULT DENTAL [address] [place] [address] Jie Juarez 09/18/2024 Refill [facility] MEDICINE [address] [place] [address] Bela Vasquez MD 09/18/2024 Refill [facility] MEDICINE [address] [place] [address] Willy Jacobsen MD Bronchitis 09/10/2024 Refill [facility] MED[facility]INE [address] [place] [address] Bela Vasquez MD Lumbar post-laminectomy syndrome 09/05/2024 Refill [facility] MEDICINE [address] [place] [address] Bela Vasquez MD Lumbar radiculopathy; Central abdominal pain 09/04/2024 2:00 PM EST Office Visit [facility] ADULT DENTAL [address] [place] [address] Ann, Jie Chronic periodontitis (Primary Dx); Dental calculus; Dental caries into pulp from Last 3 Months Immunizations Name Administration Dates Next Due Hep B, adult 04/24/2007,12/15/2006,08/15/2006 Influenza High-dose Quadriva lent Preservative Free 10/19/2022,12/14/2021 Influenza injectable quadriv alent IIV4 with preservative 06/20/2019,08/02/2018 Influenza injectable quadriv alent preservative free 08/15/2023,07/09/2020,05/13/2015 Influenza, High Dose Seasona l, Preservative Free 06/24/2024 Influenza, IIV3, injectable 08/24/2021,1 ,06/06/2017,07/17,07/06/2011,07/04/2010,07/11/2008 ,08/15/2006,10/08/2004,08/05/1997,03/1996,07/02/1992 Influenza, Split (incl. amari fied surface antigen) 06/28/2013,07/24/2012 Influenza, Unspecified 10/19/2022,2021,08/24/2021,06/06,07/17/2014,07/06/2011,07/04/2010 ,07/11/2008,08/15/2006,10/08/2004,12/1996,08/07/1996,07/02/1992 Influenza, seasonal, injecta ble, preservative free 06/06/2017 Moderna Covid-19 Vaccine 12+ 12/14/2021,12/30/19 21,12/01/2020 Pfizer Covid-19 Vaccine 12+ 06/24/2024, Pneumococcal Conjugate PCV 20 03/14/2024 Pneumococcal Polysaccharide PPSV23 07/06/2011, TD (adult), 2 Lf tetanus tox oid, preservative free, adsorbed 03/23/2006,05/02/1997,04/01/1991 Tdap 03/14/2024,11/10/2011 Zoster, live 07/09/2020,04/11/2017 Family History Medical History Relation Name Comments Alcohol abuse Brother Stroke Father Diabetes type II Sister 1 Cancer Sister 2 Diabetes type II Sister 3 Relation Name Status Comments Brother Father Alive Mother Sister 1 Sister 2 Sister 3 Alive Social History Tobacco Use Types Packs/Day Years Used Date Smoking Tobacco: Former Cigarettes Passive Smoke Exposure: Past Smokeless Tobacco: Former Tobacco Cessation:Counseling Given: Not Answered Alcohol Use Standard Drinks/Week Comments Defer 0 [...] or Rico 08/01/2022 10 :14 AM EDT Last Filed Vital Signs Vital Sign Reading Time Taken Comments Blood Pressure 144/66 11/08/2024 1:45 PM EST Pulse 99 06/24/2024 1:08 PM EDT Temperature 36.1 ??C (96.9 ??F) 06/24/2024 1:08 PM ED T Respiratory Rate 20 06/24/2024 1:08 PM EDT Oxygen Saturation 99% 06/24/2024 1:08 PM EDT Inhaled Oxygen Concentration - - Weight 95.3 kg (210 lb) 06/24/2024 1:08 PM EDT Height 154.9 cm (5' 1 ) 06/24/2024 1:08 PM EDT Body Mass Index 39.68 06/24/2024 1:08 PM EDT Plan of Treatment Upcoming Encounters Date Type Department Care Team (Late st Contact Info) Description 01/14/2025 1:00 PM EDT Clinical Support [facility] MED & PEDS [address] [place] [address] Melba Savage, INÉS [address] [place] [address] 02/20/2025 1:00 PM EDT Office Visit [facility] ADULT DENTAL [address] [place] [address] Rosa Calderon Health Maintenance Due Date Last Done Comments RSV Patients and Patients Aged 60 years or older (1 - Risk 60-74 years 1-dose series) 2016 Zoster Vaccines (2 of 3) 09/03/2020 07/09/2020, 04/01 Mammogram 04/07/2024 04/07/2022, 0704/2022, 02/19/2021, Additional history exists Dental Oral Exam 10/28/2024 04/26/2024, 05/2016, 02/21/2013, Additional history exists Dental Prophylaxis 11/30/2024 05/29/2024, 0 10/15/2015, 02/25/2015 SDOH Screening 12/10/2024 12/11/2023 Dental X-Ray: Bitewings 04/27/2025 04/26/20 24, 09/16/2015, 02/21/2013 Alcohol/Substance Use Screening 06/24/2025 06/24/2024 Depression Screening 06/24/2025 06/24/2024, 06/24/20 Tobacco Screening 11/08/2025 11/08/2024 Dental X-Ray: Full Mouth 04/27/2027 04/26/2024, 09/01 Lipid Panel 02/14/2029 02/15/2024, 0511/2022, 09/21/2020 DTaP/Tdap/Td Vaccines (3 - Td or Tdap) 03/14/2034 03/14/2024, 11/10/2011, 03/23/2006, Additional history exists Hepatitis B Vaccines Completed 04/24/2007, 12/15/2006, 08/15/2006 Hepatitis C Screening Completed 10/17/2019 Colonoscopy Discontinued 07/08/2022 Colorectal Cancer Screening Discontinued Pneumococcal Vaccine: 50+ Years Completed 03/14/2024, 07/06/2011, 03/23/2006 COVID-19 Vaccine Completed 06/24/2024, , 10/19/2022, Additional history exists Influenza Vaccine Completed 06/24/2024, , 10/19/2022, Additional history exists CT Colonography Discontinued FIT DNA/Cologuard Discontinued FIT Discontinued FOBT Discontinued HIB Vaccines Aged Out No longer eligi ble based on patient's age to complete this topic HPV Vaccines Aged Out No longer eligi ble based on patient's age to complete this topic Hepatitis A Vaccines Aged Out No long er eligible based on patient's age to complete this topic IPV Vaccines Aged Out No longer eligi ble based on patient's age to complete this topic Meningococcal Vaccine Aged Out No emre brad eligible based on patient's age to complete this topic RSV under 20 months Aged Out No longe r eligible based on patient's age to complete this topic Rotavirus Vaccines Aged Out No longer eligible based on patient's age to complete this topic Sigmoidoscopy Discontinued Procedures Procedure Name Priority Date/Time Associated Diagnosis Comments CASE PRESENTATION, DETAILED AND EXTENSIVE TREATMENT PLANNING Routine 11/08/2024 1:15 PM EST 4,5,7,8,9,10,13,14,1 2 MAXILLARY PARTIAL DENTURE - RESIN BASE (INCLUDING, RETENTIVE/CLASPING MATERIALS, RESTS, AND TEETH) Routine 11/08/2024 1:15 PM EST POCT DEBBIE-14 URINE DRUG SCREEN Routine 10/31/2024 11:25 AM EST Lumbar radiculopathy DENTURE IMPRESSION Routine 10/28/2024 9: 00 AM EST CASE PRESENTATION, DETAILED AND EXTENSIVE TREATMENT PLANNING Routine 10/28/2024 9:00 AM EST 12 EXTRACTION, ERUPTED TOOTH REQ REMOVAL OF BONE AND/OR SECTIONING OF TOOTH Routine 10/28/2024 9:00 AM EST ADJUST PARTIAL DENTURE - MAXILLARY Routine 10/25/2024 1:30 PM EST CASE PRESENTATION, DETAILED AND EXTENSIVE TREATMENT PLANNING Routine 10/25/2024 1:30 PM EST 3 ML(V) RESIN-BASED COMPOSITE - 2 SURF, POSTERIOR Routine 10/25/2024 1:30 PM EST CASE PRESENTATION, DETAILED AND EXTENSIVE TREATMENT PLANNING Routine 09/27/2024 11:00 AM EST Chronic periodontitis Dental calculus ORAL HYGIENE INSTRUCTIONS Routine 09/27/2024 11:00 AM EST Chronic periodontitis Dental calculus LR PERIODONTAL SCALING AND ROOT PLANING - 1 TO 3 TEETH PER QUADRANT Routine 09/27/2024 11:00 AM EST Chronic periodontitis Dental calculus UR PERIODONTAL SCALING AND ROOT PLANING - 1 TO 3 TEETH PER QUADRANT Routine 09/27/2024 11:00 AM EST Chronic periodontitis Dental calculus ORAL HYGIENE INSTRUCTIONS Routine 09/04/2024 2:00 PM EST LL PERIODONTAL SCALING AND ROOT PLANING - 1 TO 3 TEETH PER QUADRANT Routine 09/04/2024 2:00 PM EST UL PERIODONTAL SCALING AND ROOT PLANING - 1 TO 3 TEETH PER QUADRANT Routine 09/04/2024 2:00 PM EST 23 CROWN - PORCELAIN/CERAMIC Routine 09/04/2024 12:00 AM EST 26 CROWN - PORCELAIN/CERAMIC Routine 09/04/2024 12:00 AM EST 27 CROWN - PORCELAIN/CERAMIC Routine 09/04/2024 12:00 AM EST PROPHYLAXIS - ADULT Routine 05/29/2024 1 0:00 AM EDT Chronic periodontitis Dental calculus INTRAORAL - COMPLETE SERIES OF RADIOGRAPHIC IMAGES Routine 04/26/2024 11:30 AM EDT PERIODIC ORAL EVALUATION - ESTABLISHED PATIENT Routine 04/26/2024 11:30 AM EDT LIPID PANEL WITH REFLEX TO DIRECT LDL Routine 02/15/2024 8:05 AM EDT Primary hypertension HM COLONOSCOPY Routine 07/08/2022 MAMMOGRAM GENERIC Routine 04/07/2022 12: 30 PM EDT ZZZ HISTORICAL HEPATITIS C ANTIBODY RFLX Routine 10/17/2019 12:10 PM EST from Last 3 Months or Most Recently Relevant to Health Maintenance Results * POCT DEBBIE-14 Urine Drug Screen (10/31/2024 11:25 AM EST) Oxycodone Screen, Urine Positive Urine Urine specimen obtained by clean catch procedure / Unknown 10/31/2024 11:25 AM EST Narrative Melba Savage RN - 10/31/2024 11:25 AM EST Lot# [id number] Exp: 09-07-25 us Bela Vasquez MD POINT OF CARE TEST ENTER/EDIT OR DERABLES Final Result * (ABNORMAL) Lipid Panel with Reflex to Direct LDL (02/15/2024 8:05 AM EDT) Triglycerides 159(H) <150 mg/dL [facility] Comment:Desirable Triglyceri de: less than 150 mg/dLBorderline High Triglyceride 150-199 mg/dLHigh Triglyceride: 200-499 mg/dLVery High Triglyceride: greater than or equal to 5OO mg/dL Cholesterol 152 <200 mg/dL [facility] Comment:Desirable Cholestero l: less than 200 mg/dLBorderline High Cholesterol: 200-239 mg/dLHigh Cholesterol: greater than 239 mg/dL LDL Cholesterol Calculated 58 <100 mg/dL [facility] Comment:Desirable LDL: less than 100 mg/dLNear Optimal/Above Optimal LDL: 110- 129 mg/dLBorderline High LDL: 130-159 mg/dLHigh LDL: 160-189 mg/dLVery High LDL: greater than or equal to 190 mg/dL HDL Cholesterol 63 >40 mg/dL [facility] Comment:Desirable HDL: great er than 40 mg/dL Note: This HDL assay may give artificially low results in patients with liver disease. Blood 02/15/2024 8:05 AM EDT 02/15/2024 11:20 AM EDT Bela Vasquez MD LAB BLOOD ORDERABLES Final Resul t [facility] [address] [place] [phone] * Colonoscopy (07/08/2022) Colonoscopy Normal Normal 07/08/2022 Historical Provider HEALTH MAINTENANCE Final Result * Mammography Report 1 (04/07/2022 12:30 PM EDT) Anatomical Region Laterality Modality Breast Bilateral Mammography 04/07/2022 12:3 0 PM EDT Narrative 04/11/2022 8:38 AM EDT Refer to the Notes tab for result details [facility] Procedure: Mammography Report 1 Procedure Note Provider, MD Teresa - 12/25/2022 Refer to the Notes tab for result details [facility] Procedure: Mammography Report 1 Bela Vasquez MD IMG BI PROCEDURES Final Result * HEPATITIS C ANTIBODY RFLX (10/17/2019 12:10 PM EST) HEPATITIS C ANTIBODY NONREACTIVE NONREACTIVE [facility] Comment: Antibodies to HCV not detected; does not exclude early acute HCV infection. 10/17/2019 12:1 0 PM EST us Bela Vasquez MD HISTORICAL/NON ORDERABLE LABS Fi nal Result [facility] [address] from Last 3 Months or Most Recently Relevant to Health Maintenance [facility] SNP Care Teams Biblical Languages Professor Relationship Specialty Start Date End Date Bela Vasquez MD [address] [place] [id number] PCP - General Family Medicine 10/02/18 Urban Matta MD [address] [place] [address] Nephrology 08/27/24
--- OUTSIDE RECORDS SUMMARY | 2024-11-29 14:04 | XMS_ITS | Encounter Summary ---
Author Organization [employer] Address [address] [place] [address] Care Team Providers Care Medical Pathology Teacher Name Role Phone Bela Vasquez MD Primary Care Provider [phone] Urban Matta MD Unavailable [phone] Encounter Details Date Type Department Care Team ([facility] Contact Info) Description 10/31/2024 Telephone [facility] CH[facility] MED & PEDS [address] [place], [place] [phone] Melba Savage, RN [address] [place], [place] Social History Tobacco Use Types Packs/Day Years [...] encounter Miscellaneous Notes * Telephone Encounter - Melba Savage RN - 10/31/2024 10:46 AM EST .What COMPUTER NETWORK SUPPORT SPECIALIST Tier would you like this patient to be? Tier 1 = HIGH RISK, Monthly COMPUTER NETWORK SUPPORT SPECIALIST visits Tier 2 = MODerate RISK, Q3 Month visits Tier 3 = LOW RISK = Q4-6 month visits documented in this encounter Plan of Treatment Upcoming Encounters Date Type Department Care Team (Late st Contact Info) Description 01/14/2025 1:00 PM EDT Clinical Support [facility] CHC MED & PEDS [address] [place] [address] Melba Savage, INÉS [address] [place] [address] 02/20/2025 1:00 PM EDT Office Visit [facility] ADULT DENTAL [address] [place] [address] Rosa Calderon documented as of this encounter Visit Diagnoses Not on filedocumented in this encounter Additional Health Concerns Assessment Noted Time PHQ-9 Depression Total Score: 3 06/24/20 24 1:09 PM EDT documented as of this encounter Care Teams Medical Pathology Teacher Relationship Specialty Start Date End Date Bela Vasquez MD [address] [place] [address] PCP - General Family Medicine 10/02/18 [place] [address] [place] [address] Nephrology 08/27/24 documented as of this encounter
--- OUTSIDE RECORDS SUMMARY | 2024-11-29 14:04 | XMS_ITS | Encounter Summary ---
Author Organization [employer] Address [address] [place] [address] Care Team Providers Care Glass Engraver Name Role Phone Bela Vasquez MD Primary Care Provider [phone] Urban Matta MD Unavailable [phone] Reason for Visit * Reason Onset Date Comments december recall 11/20/2024 Encounter Details Date Type Department Care Team (Late st Contact Info) Description 11/20/[address] [facility] MEDICINE [address] [place], [place] [phone] [place] Keller [place] december recall Social History Tobacco Use Types Packs/Day Years [...] encounter Miscellaneous Notes * Telephone Encounter - [place] Keller MA - 11/20/2024 2:38 PM EST ..Telephone call to patient to schedule a recall appointment. No answer, Left voicemail to return call to clinic.. Recall letter sent. Visit type: Follow up Appointment notes: RV HTN / CKD / lab. Month due: December With: Christina Please schedule appointment above if patient returns call documented in this encounter Plan of Treatment Upcoming Encounters Date Type Department Care Team ([facility] st Contact Info) Description 01/14/2025 1:00 PM EDT Clinical Support [facility] CHC MED & PEDS [address] [place] [address] Melba Savage RN [address] [place] [address] 02/20/2025 1:00 PM EDT Office Visit [facility] ADULT DENTAL [address] [place] [address] Rosa Calderon documented as of this encounter Visit Diagnoses Not on filedocumented in this encounter Additional Health Concerns Assessment Noted Time PHQ-9 Depression Total Score: 3 06/24/20 24 1:09 PM EDT documented as of this encounter Care Teams Glass Engraver Relationship Specialty Start Date End Date Bela Vasquez MD [address] [place] [address] PCP - General Family Medicine 10/02/18 Urban Matta MD [address] [place] [address] Nephrology 08/27/24 documented as of this encounter
--- OUTSIDE RECORDS SUMMARY | 2024-11-29 14:04 | XMS_ITS | Encounter Summary ---
Author Organization [employer] Address [address] [facility] [address] [place] [address] Care Team Providers Care Egg Processor Name Role Phone Bela Vasquez MD Primary Care Provider [phone] Urban Matta MD Unavailable [phone] Reason for Visit * Reason Onset Date Comments Med Refill 11/04/2024 Encounter Details Date Type Department Care Team (Late st Contact Info) Description 11/04/2024 Telephone [facility] MEDICINE [address] [place], [place] [phone] Bela Vasquez MD [address] [place], [place] [phone] Med Refill Social History Tobacco Use Types [...] the past 12 months, has t he [employer], gas, oil or water company threatened to [...] encounter Miscellaneous Notes * Telephone Encounter - Josh Mason - 11/04/2024 11:31 AM EST TC from pt requesting medication refill. Medications needing refill : oxyCODONE (Roxicodone) 5 MG immediate release tablet To be sent to: oxyCODONE (Roxicodone) 5 MG immediate release tablet documented in this encounter Plan of Treatment Upcoming Encounters Date Type Department Care Team (Late st Contact Info) Description 01/14/2025 1:00 PM EDT Clinical Support [facility] CHC MED & PEDS [address] [place] [address] Melba Savage, INÉS [address] [place] [address] 02/20/2025 1:00 PM EDT Office Visit [facility] ADULT DENTAL [address] [place] [address] Rosa Calderon documented as of this encounter Visit Diagnoses Not on filedocumented in this encounter Additional Health Concerns Assessment Noted Time PHQ-9 Depression Total Score: 3 06/24/20 24 1:09 PM EDT documented as of this encounter Care Teams Egg Processor Relationship Specialty Start Date End Date Bela Vasquez MD [address] [place] [address] PCP - General Family Medicine 10/02/18 [place] [address] [place] [address] Nephrology 08/27/24 documented as of this encounter
--- OUTSIDE RECORDS SUMMARY | 2024-11-29 14:04 | XMS_ITS | Encounter Summary ---
Author Organization [employer] Address [address] [place] [address] 7[address] [place] [address] Care Team Providers Care Decorating Equipment Setter Name Role Phone Bela Vasquez MD Primary Care Provider [phone] [place] Matta MD Unavailable [phone] Reason for Visit * Reason Onset Date Comments Med Refill 06/08/2023 Encounter Details Date Type Department Care Team (Late st Contact Info) Description 06/08/2023 Telephone [facility] MEDICINE [address] [place], [place] [phone] Bela Vasquez MD [address] [place], [place] [phone] Med Refill Social History Tobacco Use Types Packs/Day Years Used Date Smoking Tobacco: Never Passive Smoke Exposure: Past Smokeless Tobacco: Former Depression Answer Date Recorded Patient Health Questionnaire-9 Score 2 02/01/2023 Depression Answer Date Recorded Patient Health Questionnaire-2 Score 2 02/01/2023 Comments Unknown Sex and Gender Information Value Date Recorded Sex Assigned at Female 08/01/2022 10:14 AM EDT Legal Sex Female 10:14 AM EDT Gender Identity Female 08/01/2022 10:14 AM EDT Sexual Orientation Lesbian or Rico 08/01/2022 10 :14 AM EDT documented as of this encounter Miscellaneous Notes * Telephone Encounter - Jennifer Krishna - 06/08/2023 9:15 AM EDT Tc from pt requesting medication refill on oxyCODONE (Roxicodone) 5 MG immediate release tablet andoxyCODONE ER (OxyCONTIN) 10 MG 12 hr tablet documented in this encounter Plan of Treatment Upcoming Encounters Date Type Department Care Team (Late st Contact Info) Description 01/14/2025 1:00 PM EDT Clinical Support [facility] MED & PEDS [address] [place] [address] Melba Savage, RN [address] [place] [address] 02/20/2025 1:00 PM EDT Office Visit [facility] ADULT DENTAL [address] [place] [address] Rosa Calderon documented as of this encounter Visit Diagnoses Not on filedocumented in this encounter Additional Health Concerns Assessment Noted Time PHQ-9 Depression Total Score: 2 02/02/20 23 11:12 AM EDT documented as of this encounter Care Teams Decorating Equipment Setter Relationship Specialty Start Date End Date Bela Vasquez MD [address] [place] [address] PCP - General Family Medicine 10/02/18 Urban Matta MD [address] [place] [address] Nephrology 08/27/24 documented as of this encounter
--- OUTSIDE RECORDS SUMMARY | 2024-11-29 14:04 | XMS_ITS | Encounter Summary ---
Author Organization [employer] Address [address] [facility] 7t [place] [address] Care Team Providers Care Industrial Relations Officer Name Role Phone Bela Vasquez MD Primary Care Provider [phone] Urban Matta MD Unavailable [phone] Reason for Visit * Reason Comments Dentures Delivery Encounter Details Date Type Department Care Team (Late st Contact Info) Description 11/08/2024 1:15 PM EST Office Visit [facility] ADULT DENTAL [address] [place] [address] Ritchie Dvaid DDS [address] [place] [address] Partial edentulism, unspecified edentulism class (Primary Dx) Social History Tobacco Use Types Packs/Day Years [...] the past 12 months, has t he [employer], gas, oil or water Liquid [employer] threatened to shut off services in your [...] AM EDT documented as of this encounter Last Filed Vital Signs Vital Sign Reading Time Taken Comments Blood Pressure 144/66 11/08/2024 1:45 PM EST Pulse - - Temperature - - Respiratory Rate - - Oxygen Saturation - - Inhaled Oxygen Concentration - - Weight - - Height - - Body Mass Index - - documented in this encounter Progress Notes * Ritchie David, RADUS - 11/08/2024 1:15 PM EST Patient ID: Delphine Martínez is a 69 y.o. female. Time Out: Timeout Date: 11/08/24, Timeout Time: 1345 (Dentures delivery) Location: [facility] Tooth: Maxilla Procedure: Dentures Verified the above with patient, golf player assistant, and provider. Confirmed via patient's chart, intraorally and by radiographs. Tunnel Drier Operator: not applicable Chief Complaint Patient presents with Dentures Delivery Medical Hx: Vitals: Blood pressure (!) 144/66. Medications, Med Hx reviewed with patient and updated in chart. Consent Obtained: The risks, benefits, indications, potential complications, and alternatives were explained to the patient and informed consent was obtained with good understanding. Treatment Provided: Dental procedures in this visit [id number] - MAXILLARY PARTIAL DENTURE - RESIN BASE (INCLUDING, RETENTIVE/CLASPING MATERIALS, RESTS, ANDTEETH) 4,5,7,8,9,10,13,14,12 Tried in denture(s) -Evaluated for comfort, fit, phonetics, and stability (f, v, s, th sounds; swallow, yawn, etc) -Evaluated for satisfactory esthetics. -Occlusion verified; adjustments made as necessary. Patient has received information sheet for denture care and expectations. Pt was provided with denture case and denture brush. NV: F/U / adj as needed / christen Patternmaker Metal: Dora Menendez Dentist: Ritchie David DDS documented in this encounter Plan of Treatment Upcoming Encounters Date Type Department Care Team (Late st Contact Info) Description 01/14/2025 1:00 PM EDT Clinical Support [facility] CHC MED & PEDS [address] [place] [address] Melba Savage, RN [address] [place] [address] 02/20/2025 1:00 PM EDT Office Visit [facility] ADULT DENTAL [address] [place] [address] Rosa Calderon documented as of this encounter Procedures Procedure Name Priority Date/Time Associated Diagnosis Comments 4,5,7,8,9,10,13,14,12 MAXILLARY PARTIAL DENTURE - RESIN BASE (INCLUDING, RETENTIVE/CLASPING MATERIALS, RESTS, AND TEETH) Routine 11/08/2024 1:15 PM EST CASE PRESENTATION, DETAILED AND EXTENSIVE TREATMENT PLANNING Routine 11/08/2024 1:15 PM EST documented in this encounter Visit Diagnoses Diagnosis Partial edentulism, unspecified edentulism class- Primary documented in this encounter Additional Health Concerns Assessment Noted Time PHQ-9 Depression Total Score: 3 06/24/20 24 1:09 PM EDT documented as of this encounter Care Teams Industrial Relations Officer Relationship Specialty Start Date End Date Bela Vasquez MD [address] [place] [address] PCP - General Family Medicine 10/02/18 Urban Matta MD [address] [place] [address] Nephrology 08/27/24 documented as of this encounter
--- OUTSIDE RECORDS SUMMARY | 2024-11-29 14:04 | XMS_ITS | Encounter Summary ---
Author Organization [employer] Address [address] [place] [address] 7t [place] [address] Care Team Providers Care Surveillance Investigator Name Role Phone Bela Vasquez MD Primary Care Provider [phone] Urban Matta MD Unavailable [phone] Reason for Visit * Reason Onset Date Comments Med Refill 05/11/2023 Encounter Details Date Type Department Care Team (Late st Contact Info) Description 05/11/2023 Telephone [facility] MEDICINE [address] [place], [place] [phone] Bela Vasquez MD [address] [place], [place] [phone] Med Refill Social History Tobacco Use Types [...] encounter Miscellaneous Notes * Telephone Encounter - Marisol Tiffanie - 05/11/2023 10:37 AM EDT Tc from pt requesting med refill for medication oxyCODONE (Roxicodone) 5 MG immediate release tablet oxyCODONE ER (OxyCONTIN) 10 MG 12 hr tablet documented in this encounter Plan of Treatment Upcoming Encounters Date Type Department Care Team (Late st Contact Info) Description 01/14/2025 1:00 PM EDT Clinical Support [facility] CHC MED & PEDS [address] [place] [address] Melba Savage, RN [address] [place] [address] 02/20/2025 1:00 PM EDT Office Visit [facility] ADULT DENTAL [address] [place] [address] Rosa Calderon documented as of this encounter Visit Diagnoses Not on filedocumented in this encounter Additional Health Concerns Assessment Noted Time PHQ-9 Depression Total Score: 2 02/02/20 23 11:12 AM EDT documented as of this encounter Care Teams Surveillance Investigator Relationship Specialty Start Date End Date Bela Vasquez MD [address] [place] [address] PCP - General Family Medicine 10/02/18 Urban Matta MD [address] [place] [address] Nephrology 08/27/24 documented as of this encounter
--- OUTSIDE RECORDS SUMMARY | 2024-11-29 14:05 | XMS_ITS | Encounter Summary ---
Author Organization [facility] Address [address] [place] [address] Phone Care Team Providers Care Seamless Tube Drawer Name Role Phone Bela Vasquez MD Primary Care Provider [phone] Encounter Details Date Type Department Care Team (Late Contact Info) Description 01/25/2024 Documentation Only [facility] [address] [place] [address] Pamela Rand [address] [place] [phone] Social History Tobacco Use Types Packs/Day Years Used Date Smoking Tobacco: Former Cigarettes Q uit: 10/02/1995 Smokeless Tobacco: Never Comments:Smoking History Inf o:Every day Alcohol Use Standard Drinks/Week Comments Never 0 (1 standard drink = 0.6 oz pure alcohol) Alcoholic Drinks/day: Occasional social drink AUDIT-C Answer Date Recorded Q1: How often do you have a drink containing alc ohol? Never 11/07/2019 Average Number of Drinks Not on file 020 Frequency of Binge Drinking Not on file 03/2020 Comments Unknown Sex and Gender Information Value Date Recorded Sex Assigned at Not on file Legal Sex Female 10:33 AM EST Gender Identity Not on file Sexual Orientation Not on file documented as of this encounter Plan of Treatment Upcoming Encounters Date Type Department Care Team (Late Contact Info) Description 03/27/2025 2:30 PM EDT Office Visit [facility] [address] [place] [address] Urban Matta MD [address] [place] [address] documented as of this encounter Visit Diagnoses Not on filedocumented in this encounter Care Teams Seamless Tube Drawer Relationship Specialty Start Date End Date Bela Vasquez MD [address] [place] [address] PCP - General Family Medicine 01/24/24 documented as of this encounter
--- OUTSIDE RECORDS SUMMARY | 2024-11-29 14:05 | XMS_ITS | Encounter Summary ---
Author Organization [facility] Address [address] [place] [address] Phone Care Team Providers Care Railcar Brake Operator Name Role Phone Bela Vasquez MD Primary Care Provider [phone] Encounter Details Date Type Department Care Team (Late Contact Info) Description 01/25/2024 Documentation Only [facility] [address] [place] [address] Pamela Rand [address] [place] [phone] Social History Tobacco Use Types Packs/Day Years [...] Visit [facility] [address] [place] [address] Urban Matta MD [address] [place] [address] documented as of this encounter Visit Diagnoses Not on filedocumented in this encounter Care Teams Railcar Brake Operator Relationship Specialty Start Date End Date Bela Vasquez MD [address] [place] [id number] PCP - General Family Medicine 01/24/24 documented as of this encounter
--- OUTSIDE RECORDS SUMMARY | 2024-11-29 14:05 | XMS_ITS | Encounter Summary ---
Author Organization [employer] Address [address] [facility] 7t [place] [address] Care Team Providers Care Order Processing Clerk Name Role Phone Bela Vasquez MD Primary Care Provider Urban Matta MD Unavailable [phone] Encounter Details Date Type Department Care Team (Late st Contact Info) Description 08/06/2024 Orders Only [facility] MEDICINE [address] [place], [place] [phone] Bela Vasquez MD [address] [place], [place] [phone] Lumbar post-laminectomy syndrome Social History Tobacco Use Types Packs/Day Years Used Date Smoking Tobacco: Former Cigarettes Passive Smoke Exposure: Past Smokeless Tobacco: Former Alcohol Answer Date Recorded Frequency of Alcohol [...] Description 01/14/2025 1:00 PM EDT Clinical Support [facility] CHC MED & PEDS [address] [place] [address] Melba Savage, INÉS [address] [place] [address] 02/20/2025 1:00 PM EDT Office Visit [facility] ADULT DENTAL [address] [place] [address] Rosa Calderon documented as of this encounter Visit Diagnoses Diagnosis Lumbar post-laminectomy syndrome Postlaminectomy syndrome, lumbar region documented in this encounter Additional Health Concerns Assessment Noted Time PHQ-9 Depression Total Score: 3 06/24/20 24 1:09 PM EDT documented as of this encounter Care Teams Order Processing Clerk Relationship Specialty Start Date End Date Bela Vasquez MD [address] [place] [address] PCP - General Family Medicine 10/02/18 Urban Matta MD [address] [place] [address] Nephrology 08/27/24 documented as of this encounter
--- OUTSIDE RECORDS SUMMARY | 2024-11-29 14:05 | XMS_ITS | Encounter Summary ---
Author Organization [facility] Address [address] [place] [address] Phone Care Team Providers Care Air Sealing Technician Name Role Phone Bela Vasquez MD Primary Care Provider [phone] Encounter Details Date Type Department Care Team (Late Contact Info) Description 08/03/2022 Documentation Only [facility] [address] [place] [address] Jo Ann Ariza [address] [place] [phone] Social History Tobacco Use Types Packs/Day Years [...] Visit [facility] [address] [place] [address] Urban Matta MD [address] [place] [address] documented as of this encounter Visit Diagnoses Not on filedocumented in this encounter Care Teams Air Sealing Technician Relationship Specialty Start Date End Date Bela Vasquez MD [address] [place] [address] PCP - General Family Medicine 01/24/24 documented as of this encounter
--- OUTSIDE RECORDS SUMMARY | 2024-11-29 14:05 | XMS_ITS | Encounter Summary ---
Author Organization [facility] Address [address] [place] [address] Phone Care Team Providers Care Audio Visual Design Engineer Name Role Phone Bela Vasquez MD Primary Care Provider [phone] Encounter Details Date Type Department Care Team (Late Contact Info) Description 01/25/2024 Documentation Only [facility] [address] [place] [address] Pamela Rand [address] [place] [phone] Social History Tobacco Use Types Packs/Day Years [...] Visit [facility] [address] [place] [place] [address] Urban Matta MD [address] [place] [address] documented as of this encounter Visit Diagnoses Not on filedocumented in this encounter Care Teams Audio Visual Design Engineer Relationship Specialty Start Date End Date Bela Vasquez MD [address] [place] [address] PCP - General Family Medicine 01/24/24 documented as of this encounter
--- OUTSIDE RECORDS SUMMARY | 2024-11-29 14:05 | XMS_ITS | Encounter Summary ---
Author Organization [employer] Address [address] [facility] 7t [place] [address] Care Team Providers Care Entry Level Java Developer Name Role Phone Bela Vasquez MD Primary Care Provider [phone] Urban Matta MD Unavailable [phone] Reason for Visit * Reason Comments Med Refill Encounter Details Date Type Department Care Team ([facility] st Contact Info) Description 07/24/2023 Refill [facility] MEDICINE [address] [place], [place] [phone] Bela Vasquez MD [address] [place], [place] [phone] Social History Tobacco Use Types Packs/Day Years Used Date Smoking Tobacco: Never Passive Smoke Exposure: Past Smokeless Tobacco: Former Depression Answer Date Recorded Patient Health Questionnaire-9 Score 2 02/01/2023 Housing Stability Answer Date Recorded What is [...] Description 01/14/2025 1:00 PM EDT Clinical Support [facility] CHC MED & PEDS [address] [place] [address] Melba Savage, INÉS [address] [place] [address] 02/20/2025 1:00 PM EDT Office Visit [facility] ADULT DENTAL [address] [place] [address] Rosa Calderon documented as of this encounter Visit Diagnoses Not on filedocumented in this encounter Additional Health Concerns Assessment Noted Time PHQ-9 Depression Total Score: 2 02/02/20 23 11:12 AM EDT documented as of this encounter Care Teams Entry Level Java Developer Relationship Specialty Start Date End Date Bela Vasquez MD [address] [place] [address] PCP - General Family Medicine 10/02/18 Urban Matta MD [address] [place] [address] Nephrology 08/27/24 documented as of this encounter
--- OUTSIDE RECORDS SUMMARY | 2024-11-29 14:05 | XMS_ITS | Encounter Summary ---
Author Organization [employer] Address [address] [facility] 7t [place] [address] Care Team Providers Care Associate Professor Of Criminal Justice Name Role Phone Bela Vasquez MD Primary Care Provider [phone] Urban Matta MD Unavailable [phone] Reason for Visit * Reason Onset Date Comments Medication Question 03/26/2024 Encounter Details Date Type Department Care Team ([facility] st Contact Info) Description 03/26/2024 Telephone [facility] MEDICINE [address] [place], [place] [phone] Bela Vasquez MD [address] [place], [place] [phone] Medication Question Social History Tobacco Use Types Packs/Day Years [...] * Telephone Encounter - Elmo Lee - 03/26/2024 3:47 PM EDT Tc from pt calling in regards to oxyCODONE (Roxicodone) 5 MG immediate release tablet and oxyCODONEER (OxyCONTIN) 10 MG 12 hr tablet. Pt stated pcp advised she would give her 6 extra pills with medication but only received the extra 6 for the 5 mg ad not the 10 mg. Pt wants to know if she is supposed to receive the extra 6 pills for both prescriptions or just the 5 mg. Please contact pt at [phone]. documented in this encounter Plan of Treatment Upcoming Encounters Date Type Department Care Team (Late st Contact Info) Description 01/14/2025 1:00 PM EDT Clinical Support [facility] CHC MED & PEDS [address] [place] [address] Melba Savage RN [address] [place] [address] 02/20/2025 1:00 PM EDT Office Visit [facility] ADULT DENTAL [address] [place] [address] Rosa Calderon documented as of this encounter Visit Diagnoses Not on filedocumented in this encounter Additional Health Concerns Assessment Noted Time PHQ-9 Depression Total Score: 2 02/02/20 23 11:12 AM EDT documented as of this encounter Care Teams Associate Professor Of Criminal Justice Relationship Specialty Start Date End Date Bela Vasquez MD [address] [place] [address] PCP - General Family Medicine 10/02/18 Urban Matta MD [address] [place] [address] Nephrology 08/27/24 documented as of this encounter
--- OUTSIDE RECORDS SUMMARY | 2024-11-29 14:05 | XMS_ITS | Encounter Summary ---
Author Organization [employer] Address [address] [facility] [address] 7t [place] [address] Care Team Providers Care Salon Coordinator Name Role Phone Bela Vasquez MD Primary Care Provider [phone] Urban Matta MD Unavailable [phone] Encounter Details Date Type Department Care Team (Late st Contact Info) Description 08/07/2024 Orders Only [facility] MEDICINE [address] [place], [place] [phone] Bela Vasquez MD [address] [place], [place] [phone] Lumbar radiculopathy (Primary Dx); Central abdominal pain Social History Tobacco Use [...] Description 01/14/2025 1:00 PM EDT Clinical Support [facility] CHC MED & PEDS [address] [place] [address] Melba Savage, INÉS [address] [place] [address] 02/20/2025 1:00 PM EDT Office Visit [facility] ADULT DENTAL [address] [place] [address] Rosa Calderon documented as of this encounter Visit Diagnoses Diagnosis Lumbar radiculopathy- Primary Thoracic or lumbosacral neuritis or radiculitis, unspecified Central abdominal pain documented in this encounter Additional Health Concerns Assessment Noted Time PHQ-9 Depression Total Score: 3 06/24/20 24 1:09 PM EDT documented as of this encounter Care Teams Salon Coordinator Relationship Specialty Start Date End Date Bela Vasquez MD [address] [place] [address] PCP - General Family Medicine 10/02/18 Urban Matta MD [address] [place] [address] Nephrology 08/27/24 documented as of this encounter
--- OUTSIDE RECORDS SUMMARY | 2024-11-29 14:05 | XMS_ITS | Encounter Summary ---
Author Organization [facility] Address [address] [place] [address] Phone Care Team Providers Care Core Stacker Name Role Phone Bela Vasquez MD Primary Care Provider Encounter Details Date Type Department Care Team (Late Contact Info) Description 08/03/2022 Documentation Only [facility] [address] [place] [address] Jo Ann Ariza [address] [place] [phone] Social History Tobacco Use Types Packs/Day Years [...] Visit [facility] [address] [place] [address] Urban Matta MD [address] [place] [address] documented as of this encounter Visit Diagnoses Not on filedocumented in this encounter Care Teams Core Stacker Relationship Specialty Start Date End Date Bela Vasquez MD [address] [place] [address] PCP - General Family Medicine 01/24/24 documented as of this encounter
--- OUTSIDE RECORDS SUMMARY | 2024-11-29 14:05 | XMS_ITS | Encounter Summary ---
Author Organization [employer] Address [address] 7t [place] [address] Care Team Providers Care Electronics System Mechanic Name Role Phone Bela Vasquez MD Primary Care Provider [phone] Urban Matta MD Unavailable [phone] Reason for Visit * Reason Comments Extraction Encounter Details Date Type Department Care Team ([facility] st Contact Info) Description 10/28/2024 9:00 AM EST Office Visit [facility] ADULT DENTAL [address] [place], [place] [phone] Ritchie David DDS [address] [place], [place] [phone] Dental caries into pulp (Primary Dx) Social History Tobacco Use Types [...] the past 12 months, has t he [employer], gas, oil or water [employer] threatened to shut off services in your [...] Sign Reading Time Taken Comments Blood Pressure 124/66 10/28/2024 9:19 AM EST Pulse - - Temperature - - Respiratory Rate - - Oxygen Saturation - - Inhaled Oxygen Concentration - - Weight - - Height - - Body Mass Index - - documented in this encounter Progress Notes * Ritchie David DDS - 10/28/2024 9:00 AM EST Patient ID: Delphine Martínez is a 69 y.o. female. Time Out: Timeout Date: 10/28/24, Timeout Time: 921 (Dental extraction) Location: [facility] Tooth: Maxilla and #13 Procedure: Extraction and Dentures Verified the above with patient, executive assistant, and provider. Confirmed via patient's chart, intraorally and by radiographs. Pecan Huller: not applicable Chief Complaint Patient presents with Extraction Medical Hx: Vitals: Blood pressure 124/66. Past Medical History: Diagnosis Date Anxiety Asthma Cellulitis 06/20/2024 High cholesterol Hypertension Periodontal disease Medications: Outpatient Encounter Medications as of 10/28/2024 Medication Sig Dispense Refill acetaminophen (Tylenol) 500 MG tablet Take 1 tablet (500 mg) by mouth every 6 (six) hours if neededfor mild pain for up to 20 doses. 20 tablet 0 albuterol (2.5 MG/3ML) 0.083% nebulizer solution inhale 3 milliliter (2.5MG) by nebulization route every 4-6 hours as needed for difficulty breathing, up to 4 times/day as needed albuterol 108 (90 Base) MCG/ACT inhaler INHALE 2 PUFFS BY MOUTH EVERY 4 TO 6 HOURS NEEDED 8.5 g 3 atorvastatin (Lipitor) 40 MG tablet TAKE 1 TABLET(40 MG) BY MOUTH IN THE MORNING 90 tablet 1 bisacodyl (Bisacodyl EC) 5 MG EC tablet TAKE 1 TO 2 TABLETS BY MOUTH EVERY 3 DAYS NEEDED FOR CONSTIPATION 30 tablet 1 buPROPion XL (Wellbutrin XL) 150 MG 24 hr tablet Take 1 tablet by mouth. buPROPion XL (Wellbutrin XL) 300 MG 24 hr tablet Take 300 mg by mouth in the morning. cholecalciferol (Vitamin D3) 25 MCG (1000 UT) tablet TAKE 1 TABLET BY MOUTH IN THE MORNING 90 tablet 3 clonazePAM (KlonoPIN) 1 MG tablet take 1 Tablet by Oral route 3 times every day as needed escitalopram (Lexapro) 10 MG tablet Take 1 tablet by mouth. naloxone (Narcan) 4 mg/0.1 mL nasal spray Administer 1 spray (4 mg) into affected nostril(s) if needed for opioid reversal. May repeat every 2-3 minutes if needed, alternating nostrils, until medicalassistance becomes available. 2 each 1 NIFEdipine XL (Procardia XL) 60 MG 24 hr tablet Take 1 tablet by mouth. omeprazole (PriLOSEC) [address] capsule TAKE 1 CAPSULE(20 MG) BY MOUTH TWICE DAILY EVERY DAY BEFORE A MEAL 180 capsule 1 oxyCODONE (Roxicodone) 5 MG immediate release tablet Take 1 tablet (5 mg) by mouth every 12 (twelve) hours if needed for severe pain. 61 tablets per 28 days. 5 additional dose per month for breakthrough pain 59 tablet 0 oxyCODONE ER (OxyCONTIN) 10 MG 12 hr tablet Take 1 tablet (10 mg) by mouth every 12 (twelve) hours for 28 days. Do not start before October 10, 2024. 56 tablet 0 QUEtiapine (SEROquel) 400 MG tablet Take 1 tablet by mouth. risperiDONE (RisperDAL) 0.5 MG tablet Take 1 tablet by mouth every 12 (twelve) hours. Sodium Fluoride 1.1 % cream Melrude teeth for 2 minutes, morning and night. Spit, do not rinse. Do not eat or drink anything for 30 minutes following use. 112 g 3 No facility-administered encounter medications on file as of 10/28/2024. Consent Obtained: The risks, benefits, indications, potential complications, and alternatives were explained to the patient and informed consent was obtained with good understanding. Treatment Provided: Dental procedures in this visit D7210 - EXTRACTION, ERUPTED TOOTH REQUIRING REMOVAL OF BONE AND/OR SECTIONING OF TOOTH, AND INCLUDING ELEVATION OF MUCOPERIOSTEAL FLAP IF INDICATED 12 (Completed) Service provider: Ritchie David DDS Billing provider: Ritchie David DDS [id number] - ADJUNCTIVE GENERAL SERVICES - PROFESSIONAL VISITS - CASE PRESENTATION, SUBSEQUENT TO DETAILED AND EXTENSIVE TREATMENT PLANNING (Completed) Service provider: Ritchie David DDS Billing provider: Ritchie David DDS D5110 - DENTURE IMPRESSION (Completed) Service provider: Ritchie David DDS Billing provider: Ritchie David DDS Diagnosis: Caries into pulp Topical: 20% Benzocaine Anesthesia: 2% Lidocaine (Xylocaine) w/ 1:100,000 epinephrine Number of Cartridges: 1 Injection Type: Buccal infiltration and Palatal infiltration Confirmed profound anesthesia. Pharyngeal curtain and bite block placed. Removed tooth with elevators and forceps. Apices intact. Surgical Extraction: Yes, #13 Socket curetted & irrigated with sterile water. Compressed alveolar bone. Sutures: None Needed All adjacent teeth intact. Hemostasis achieved. Complications: None. Pt tolerated procedure well. Pt states having analgesics at home. forestry supervisor impression taken / sent to [facility] to add # 13 and replace clasps to mesial of # 15 instead of #11 Written and verbal post-op instructions given. Patient discharged in stable condition; ambulatory, alert, and oriented. NV: Delivery repair. Manager Of Recruiting: Dora Menendez Dentist: Ritchie David DDS documented in this encounter Plan of Treatment Upcoming Encounters Date Type Department Care Team (Late st Contact Info) Description 01/14/2025 1:00 PM EDT Clinical Support [facility] MED & PEDS [address] [place] [address] Melba Savage, RN 505 [place] [address] 02/20/2025 1:00 PM EDT Office Visit [facility] ADULT DENTAL [address] [place] [address] Rosa Calderon Scheduled Orders Name Type Priority Associated Diagnoses Orde r Schedule 21 BB(V) 21 BB(V) RESTORATIVE - RESIN-BASED COMPOSITE RESTORATIONS - DIRECT - RESIN-BASED COMPOSITE - ONE SURFACE, POSTERIOR Dental Routine [address] arting 10/28/2024 documented as of this encounter Procedures Procedure Name Priority Date/Time Associated Diagnosis Comments DENTURE IMPRESSION Routine 10/28/2024 9:00 AM EST 12 EXTRACTION, ERUPTED TOOTH REQ REMOVAL OF BONE AND/OR SECTIONING OF TOOTH Routine 10/28/2024 9:00 AM EST CASE PRESENTATION, DETAILED AND EXTENSIVE TREATMENT PLANNING Routine 10/28/2024 9:00 AM EST documented in this encounter Visit Diagnoses Diagnosis Dental caries into pulp- Primary documented in this encounter Additional Health Concerns Assessment Noted Time PHQ-9 Depression Total Score: 3 06/24/20 24 1:09 PM EDT documented as of this encounter Care Teams Electronics System Mechanic Relationship Specialty Start Date End Date Bela Vasquez MD [address] [place] [address] PCP - General Family Medicine 10/02/18 Urban Matta MD [address] [place] [address] Nephrology 08/27/24 documented as of this encounter
--- OUTSIDE RECORDS SUMMARY | 2024-11-29 14:05 | XMS_ITS | Encounter Summary ---
Author Organization [employer] Address [address] [facility] 7t [place] [address] Care Team Providers Care Rug Repairer Name Role Phone Bela Vasquez MD Primary Care Provider [phone] Urban Matta MD Unavailable [phone] Reason for Visit * Reason Onset Date Comments Med Refill 05/13/2024 Encounter Details Date Type Department Care Team (Late st Contact Info) Description 05/13/2024 Telephone [facility] MEDICINE 230 [place], [place] [phone] Bela Vasquez MD 230 [place], [place] [phone] Med Refill Social History Tobacco Use Types [...] * Telephone Encounter - Elmo Lee - 05/13/2024 11:10 AM EDT TC from pt requesting medication refill. Medications needing refill: oxyCODONE (Roxicodone) 5 MG immediate release tablet oxyCODONE ER (OxyCONTIN) 10 MG 12 hr tablet To be sent to: [id number] AT [facility] documented in this encounter Plan of Treatment Upcoming Encounters Date Type Department Care Team ([facility] st Contact Info) Description 01/14/2025 1:00 PM EDT Clinical Support [facility] CHC MED & PEDS [address] [place] [address] Melba Savage, RN 505 [place] [address] 02/20/2025 1:00 PM EDT Office Visit [facility] ADULT DENTAL 230 [place] [address] Rosa Calderon documented as of this encounter Visit Diagnoses Not on filedocumented in this encounter Additional Health Concerns Assessment Noted Time PHQ-9 Depression Total Score: 2 02/02/20 23 11:12 AM EDT documented as of this encounter Care Teams Rug Repairer Relationship Specialty Start Date End Date Bela Vasquez MD [address] [place] [address] PCP - General Family Medicine 10/02/18 Urban Matta MD [address] [place] [address] Nephrology 08/27/24 documented as of this encounter
--- OUTSIDE RECORDS SUMMARY | 2024-11-29 14:05 | XMS_ITS | Encounter Summary ---
Author Organization [facility] Address [address] [place] [address] Phone Care Team Providers Care Executive Producer Name Role Phone Bela Vasquez MD Primary Care Provider [phone] Encounter Details Date Type Department Care Team (Late Contact Info) Description 08/03/2022 Documentation Only [facility] [address] [place] [address] Jo Ann Ariza [address] [place] [phone] Social History Tobacco Use Types Packs/Day Years [...] Visit [facility] [address] [place] [address] Urban Matta MD [address] [place] [address] documented as of this encounter Visit Diagnoses Not on filedocumented in this encounter Care Teams Executive Producer Relationship Specialty Start Date End Date Bela Vasquez MD [address] [place] [address] PCP - General Family Medicine 01/24/24 documented as of this encounter
--- OUTSIDE RECORDS SUMMARY | 2024-11-29 14:05 | XMS_ITS | Encounter Summary ---
Author Organization [employer] Address [address] 7t [place] [address] Care Team Providers Care Photogrammetry Airplane Pilot Name Role Phone Bela Vasquez MD Primary Care Provider [phone] Urban Matta MD Unavailable [phone] Encounter Details Date Type Department Care Team (Late st Contact Info) Description 11/04/2024 Telephone [facility] ADULT DENTAL [address] [place], [place] [phone] Ritchie David DDS [address] [place], [place] [phone] Social History Tobacco Use Types Packs/Day Years [...] encounter Miscellaneous Notes * Telephone Encounter - Kanika Beard - 11/04/2024 10:[address] patient called about the impresion you took on her 10/28 I explain you was out of the office 11/04/2024 she was not understanding can you call her when you can thank you . documented in this encounter Plan of Treatment Upcoming Encounters Date Type Department Care Team ([facility] st Contact Info) Description 01/14/2025 1:00 PM EDT Clinical Support [facility] CHC MED & PEDS [address] [place] [address] Melba Savage, INÉS [address] [place] [address] 02/20/2025 1:00 PM EDT Office Visit [facility] ADULT DENTAL [address] [place] [address] Rosa Calderon documented as of this encounter Visit Diagnoses Not on filedocumented in this encounter Additional Health Concerns Assessment Noted Time PHQ-9 Depression Total Score: 3 06/24/20 24 1:09 PM EDT documented as of this encounter Care Teams Photogrammetry Airplane Pilot Relationship Specialty Start Date End Date Bela Vasquez MD [address] [place] [address] PCP - General Family Medicine 10/02/18 [place] [address] [place] [address] Nephrology 08/27/24 documented as of this encounter
--- OUTSIDE RECORDS SUMMARY | 2024-11-29 14:05 | XMS_ITS | Encounter Summary ---
Author Organization [employer] Address [address] [facility] 7t [place] [address] Care Team Providers Care Doughnut Machine Operator Helper Name Role Phone Bela Vasquez MD Primary Care Provider [phone] Urban Matta MD Unavailable Reason for Visit * Reason Onset Date Comments Med Refill 08/13/2024 Encounter Details Date Type Department Care Team (Late st Contact Info) Description 08/13/2024 Telephone [facility] MEDICINE [address] [place], [place] [phone] Bela Vasquez MD [address] [place], [place] [phone] Med Refill Social History Tobacco Use Types [...] * Telephone Encounter - Josh Mason - 08/13/2024 1:55 PM EST TC from pt requesting medication refill. Medications needing refill : oxyCODONE ER (OxyCONTIN) 10 MG 12 hr tablet To be sent to: [facility][id number] documented in this encounter Plan of Treatment Upcoming Encounters Date Type Department Care Team (Late st Contact Info) Description 01/14/2025 1:00 PM EDT Clinical Support [facility] CHC MED & PEDS [address] [place] [address] Melba Savage, INÉS [address] [place] [address] 02/20/2025 1:00 PM EDT Office Visit [facility] ADULT DENTAL [address] [place] [address] Rosa Calderon documented as of this encounter Visit Diagnoses Not on filedocumented in this encounter Additional Health Concerns Assessment Noted Time PHQ-9 Depression Total Score: 3 06/24/20 24 1:09 PM EDT documented as of this encounter Care Teams Doughnut Machine Operator Helper Relationship Specialty Start Date End Date Bela Vasquez MD 230 [place] [address] PCP - General Family Medicine 10/02/18 Urban Matta MD [address] [place] [address] Nephrology 08/27/24 documented as of this encounter
--- OUTSIDE RECORDS SUMMARY | 2024-11-29 14:05 | XMS_ITS | Encounter Summary ---
Author Organization [employer] Address [address] [facility] 7t [place] [address] Care Team Providers Care Manager Privacy Name Role Phone Bela Vasquez MD Primary Care Provider [phone] Urban Matta MD Unavailable [phone] Reason for Visit * Reason Comments Med Refill Encounter Details Date Type Department Care Team (Late st Contact Info) Description 04/22/2024 Refill [facility] MEDICINE [address] [place], [place] [phone] Bela Vasquez MD [address] [place], [place] [phone] Gastroesophageal reflux disease, unspecified whether esophagitis present Social History Tobacco Use Types Packs/Day Years [...] Description 01/14/2025 1:00 PM EDT Clinical Support [facility] CHC MED & PEDS 505 [place] [address] Melba Savage, INÉS [address] [place] [address] 02/20/2025 1:00 PM EDT Office Visit [facility] ADULT DENTAL [address] [place] [address] Rosa Calderon documented as of this encounter Visit Diagnoses Diagnosis Gastroesophageal reflux disease, unspecified whether esophagitis present documented in this encounter Additional Health Concerns Assessment Noted Time PHQ-9 Depression Total Score: 2 02/02/20 23 11:12 AM EDT documented as of this encounter Care Teams Manager Privacy Relationship Specialty Start Date End Date Bela Vasquez MD [address] [place] [address] PCP - General Family Medicine 10/02/18 Urban Matta MD [address] [place] [address] Nephrology 08/27/24 documented as of this encounter
--- OUTSIDE RECORDS SUMMARY | 2024-11-29 14:05 | XMS_ITS | Encounter Summary ---
Author Organization [employer] Address [address] [place] [address] 7t [place] [address] Care Team Providers Care Petrophysical Engineer Name Role Phone Bela Vasquez MD Primary Care Provider [phone] Urban Matta MD Unavailable [phone] Reason for Visit * Reason Onset Date Comments Med Refill 03/15/2023 Encounter Details Date Type Department Care Team (Late st Contact Info) Description 03/15/2023 Telephone [facility] MEDICINE 230 [place], [place] [phone] Bela Vasquez MD 230 [place], [place] [phone] Med Refill Social History Tobacco Use Types [...] * Telephone Encounter - Jennifer Krishna - 03/15/2023 2:38 PM EDT Tc from pt requesting medication refill for oxyCODONE ER (OxyCONTIN) 10 MG 12 hr tablet and oxyCODONE (Roxicodone) 5 MG immediate release tablet documented in this encounter Plan of Treatment Upcoming Encounters Date Type Department Care Team (Late st Contact Info) Description 01/14/2025 1:00 PM EDT Clinical Support [facility] CHC MED & PEDS 505 [place] [address] Melba Savage, RN [address] [place] [address] 02/20/2025 1:00 PM EDT Office Visit [facility] ADULT DENTAL [address] [place] [address] Rosa Calderon documented as of this encounter Visit Diagnoses Not on filedocumented in this encounter Additional Health Concerns Assessment Noted Time PHQ-9 Depression Total Score: 2 02/02/20 23 11:12 AM EDT documented as of this encounter Care Teams Petrophysical Engineer Relationship Specialty Start Date End Date Bela Vasquez MD [address] [place] [address] PCP - General Family Medicine 10/02/18 Urban Matta MD [address] [place] [address] Nephrology 08/27/24 documented as of this encounter
--- OUTSIDE RECORDS SUMMARY | 2024-11-29 14:05 | XMS_ITS | Encounter Summary ---
Author Organization [facility] [employer] Address [address] [place] [address] Phone Care Team Providers Care Home Energy Consultant Name Role Phone Bela Vasquez MD Primary Care Provider [phone] Encounter Details Date Type Department Care Team (Late Contact Info) Description 01/25/2024 Documentation Only [facility] [address] [place] [address] Pamela Rand [address] [place] [phone] Social History Tobacco Use Types Packs/Day Years [...] Visit [facility] [address] [place] [address] Urban Matta MD [address] [place] [address] documented as of this encounter Visit Diagnoses Not on filedocumented in this encounter Care Teams Home Energy Consultant Relationship Specialty Start Date End Date Bela Vasquez MD [address] [place] [address] PCP - General Family Medicine 01/24/24 documented as of this encounter
--- OUTSIDE RECORDS SUMMARY | 2024-11-29 14:05 | XMS_ITS | Encounter Summary ---
Author Organization [employer] Address [address] [facility] 7t [place] [address] Care Team Providers Care Oxygen Equipment Preparer Name Role Phone Bela Vasquez MD Primary Care Provider [phone] Urban Matta MD Unavailable [phone] Reason for Visit * Reason Comments controlled substance treatment Encounter Details Date Type Department Care Team (Latest Contact Info) Description 10/31/2024 11:00 AM EST Clinical Support [facility] MED & PEDS [address] [place] [address] Melba Savage, INÉS [address] [place] [address] Lumbar radiculopathy Social History Tobacco Use Types Packs/Day Years [...] the past 12 months, has t he [employer], oil or water [employer] threatened to shut off services in your [...] AM EDT documented as of this encounter Progress Notes * Melba Savage RN - 10/31/2024 11:00 AM EST S: Pt here for FARM LOAN INSPECTOR RV. Prescribed oxycodone 5mg PO q12h PRN/ 59 tab/ month, and oxycontine ER 10mg OP q12h PRN. 3 additional tab added for breakthrough pain Oxy 5mg. States has been taking medications only as prescribed. BZO from psych. Provider. Pt denies use of nicotine/street drug/marijuana/ ETOH. Last PCP f/u was on PCP 10/08/24. No questions/ concerns at this time. O: LEGISLATIVE DIRECTOR verified today. Oxycodone 5mg filled on 10/08/24. Pill count performed. Pt has 11 oxycodone 5mg at this time, 9 expected. Oxycontine Er 10mg filled on 10/11/24. Pt has 14 oxycontin ER 10mg at this time, 14 expected. utox performed, positive for OXY, TCA,. .Fentanyl testing: negative Lot# [id number] Exp: 09-15-25 A: FARM LOAN INSPECTOR Contract Revisit: Opioid dependence related to chronic pain. P: Patient to continue taking medication only as prescribed; Next FARM LOAN INSPECTOR RV appointment scheduled for 01/14/25 @ 1pm. F/U sooner PRN. Appointment reminder given. Patient verbalized understanding and agreed to plan. documented in this encounter Plan of Treatment Upcoming Encounters Date Type Department Care Team (Late st Contact Info) Description 01/14/2025 1:00 PM EDT Clinical Support [facility] CHC MED & PEDS [address] [place] [address] Melba Savage RN [address] [place] [address] 02/20/2025 1:00 PM EDT Office Visit [facility] ADULT DENTAL [address] [place] [address] Rosa Calderon documented as of this encounter Procedures Procedure Name Priority Date/Time Associated Diagnosis Comments POCT DEBBIE-14 URINE DRUG SCREEN Routine 10/31/2024 11:25 AM EST Lumbar radiculopathy documented in this encounter Results * POCT DEBBIE-14 Urine Drug Screen (10/31/2024 11:25 AM EST) Oxycodone Screen, Urine Positive Urine Urine specimen obtained by clean catch procedure / Unknown 10/31/2024 11:25 AM EST Narrative Melba Savage RN - 10/31/2024 11:25 AM EST Lot# [id number] Exp: 09-07-25 Bela Vasquez MD POINT OF CARE TEST ENTER/EDIT OR DERABLES Final Result documented in this encounter Visit Diagnoses Diagnosis Lumbar radiculopathy Thoracic or lumbosacral neuritis or radiculitis, unspecified documented in this encounter Additional Health Concerns Assessment Noted Time PHQ-9 Depression Total Score: 3 06/24/20 24 1:09 PM EDT documented as of this encounter Care Teams Oxygen Equipment Preparer Relationship Specialty Start Date End Date Bela Vasquez MD [address] [place] [address] PCP - General Family Medicine 10/02/18 Urban Matta MD [address] [place] [address] Nephrology 08/27/24 documented as of this encounter
--- OUTSIDE RECORDS SUMMARY | 2024-11-29 14:05 | XMS_ITS | Encounter Summary ---
Author Organization [employer] Address [address] [facility] 7t [place] [address] Care Team Providers Care Rn Neurology Name Role Phone Bela Vasquez MD Primary Care Provider [phone] Urban Matta MD Unavailable [phone] Reason for Visit * Reason Onset Date Comments Appointment Request 06/12/2024 Encounter Details Date Type Department Care Team ([facility] st Contact Info) Description 06/12/2024 Telephone [facility] MEDICINE [address] [place], [place] [phone] Bela Vasquez MD [address] [place], [place] [phone] Appointment Request Social History Tobacco Use Types Packs/Day Years [...] encounter Miscellaneous Notes * Telephone Encounter - Oskar Osei - 06/12/2024 2:17 PM EDT Tc from patient calling to request a earlier time on the appt on 06/13 documented in this encounter Plan of Treatment Upcoming Encounters Date Type Department Care Team (Late st Contact Info) Description 01/14/2025 1:00 PM EDT Clinical Support [facility] CHC MED & PEDS [address] [place] [address] Melba Savage, RN [address] [place] [address] 02/20/2025 1:00 PM EDT Office Visit [facility] ADULT DENTAL [address] [place] [address] Rosa Calderon documented as of this encounter Visit Diagnoses Not on filedocumented in this encounter Additional Health Concerns Assessment Noted Time PHQ-9 Depression Total Score: 2 02/02/20 23 11:12 AM EDT documented as of this encounter Care Teams Rn Neurology Relationship Specialty Start Date End Date Bela Vasquez MD [address] [place] [address] PCP - General Family Medicine 10/02/18 Urban Matta MD [address] [place] [address] Nephrology 08/27/24 documented as of this encounter
--- OUTSIDE RECORDS SUMMARY | 2024-11-29 14:05 | XMS_ITS | Encounter Summary ---
Author Organization [employer] Address [address] [facility] 7t [place] [address] Care Team Providers Care Weight Trainer Name Role Phone Bela Vasquez MD Primary Care Provider [phone] Urban Matta MD Unavailable [phone] Reason for Visit * Reason Comments Med Refill Encounter Details Date Type Department Care Team ([facility] st Contact Info) Description 08/13/2023 Refill [facility] MED[facility]INE [address] [place], [place] [phone] Bela Vasquez MD [address] [place], [place] [phone] Wheezing Social History Tobacco Use Types Packs/Day Years [...] Description 01/14/2025 1:00 PM EDT Clinical Support [facility] PEDS 505 [place] [address] Melba Savage, INÉS 505 [place] [address] 02/20/2025 1:00 PM EDT Office Visit [facility]ULT [facility] [address] [place] [address] Rosa Calderon documented as of this encounter Visit Diagnoses Diagnosis Wheezing documented in this encounter Additional Health Concerns Assessment Noted Time PHQ-9 Depression Total Score: 2 02/02/20 23 11:12 AM EDT documented as of this encounter Care Teams Weight Trainer Relationship Specialty Start Date End Date Bela Vasquez MD [address] [place] [address] PCP - General Family Medicine 10/02/18 Urban Matta MD [address] [place] [address] Nephrology 08/27/24 documented as of this encounter
--- OUTSIDE RECORDS SUMMARY | 2024-11-29 14:05 | XMS_ITS | Encounter Summary ---
Author Organization [facility] Address [address] [place] [address] Phone Care Team Providers Care Surveillance Manager Name Role Phone Bela Vasquez MD Primary Care Provider [phone] Encounter Details Date Type Department Care Team (Late Contact Info) Description 08/03/2022 Documentation Only [facility] [address] [address] Jo Ann Ariza [address] [place] [phone] Social History Tobacco Use Types Packs/Day Years [...] [facility] [address] [place] [address] Urban Matta MD [address] [place] [address] documented as of this encounter Visit Diagnoses Not on filedocumented in this encounter Care Teams Surveillance Manager Relationship Specialty Start Date End Date Bela Vasquez MD [address] [place] [address] PCP - General Family Medicine 01/24/24 documented as of this encounter
--- OUTSIDE RECORDS SUMMARY | 2024-11-29 14:05 | XMS_ITS | Clinical Summary ---
Author Organization [facility] [place], Address [address] [place] [address] [place] [address] Phone Care Team Providers Care Woodwinds Teacher Name Role Phone Bela Vasquez MD Primary Care Provider [phone] Allergies Active Allergy Reactions Criticality Noted Date Comments Amlodipine 04/02/2020 Carvedilol Low 04/02/2020 Chlorthalidone 04/02/2020 Other reaction(s): acute kidney injury Diltiazem 04/02/2020 Ibuprofen Other (see comments) 02/02/2020 Other reaction(s): abd pain Lisinopril 04/02/2020 Morphine Other (see comments) 07/14/2021 Nsaids Other (see comments) Other reaction(s): unspecified Medications clonazePAM (KlonoPIN) 1 MG tablet Take 1 mg by mouth 2 (two) times a day Active QUEtiapine (SEROquel) 400 MG tablet Take 400 mg by mouth every night Active diclofenac (VOLTAREN) 1 % gel Apply topically 4 times a day Active docusate sodium (COLACE) 100 MG capsule Take 100 mg by mouth 2 (two) times a day Active Naloxone HCl (NARCAN) 4 MG/0.1ML liquid Administer into affected nostril(s) Active fluticasone (FLONASE) 50 MCG/ACT nasal spray Administer 1 spray into each nostril 1 (one) time each day Active polyethylene glycol (GLYCOLAX) packet Take 17 g by mouth 1 (one) time each day Active albuterol (2.5 MG/3ML) 0.083% nebulizer solution Take 2.5 mg by nebulization every 6 (six) hours if needed for wheezing Active atorvastatin (LIPITOR) 40 MG tablet Take 40 mg by mouth 1 (one) time each day Active bisacodyl (DULCOLAX) 5 MG EC tablet Take 5 mg by mouth 1 (one) time each day if needed for constipation Do not crush, chew, or split. Active omeprazole (PriLOSEC) [address] capsule Take 20 mg by mouth 1 (one) time each day Do not crush or chew. Active oxyCODONE (OxyCONTIN) 10 MG 12 hr abuse-deterrent tablet Take 10 mg by mouth every 12 (twelve) hours Do not crush, chew, or split. Active oxyCODONE (OXY-IR) 5 MG immediate release capsule Take 5 mg by mouth every 12 (twelve) hours if needed for moderate pain Active senna (SENOKOT) 8.6 MG tablet Take 1 tablet by mouth 1 (one) time each day Active albuterol HFA (PROVENTIL HFA;VENTOLIN HFA) 108 (90 Base) MCG/ACT inhaler Inhale 2 puffs every 6 (six) hours if needed for wheezing Active Cholecalciferol (VITAMIN D-3) 25 MCG (1000 UT) capsule Take by mouth Acti ve Cholecalciferol (VITAMIN D) 25 MCG (1000 UT) tablet 0 Active risperiDONE (RisperDAL) 0.5 MG tablet TK 1 T PO BID 0 Active escitalopram (LEXAPRO) 10 MG tablet TK 1 T PO QAM 0 Active polyethylene glycol (GLYCOLAX) 17 GM/SCOOP powder 0 Active buPROPion XL (WELLBUTRIN XL) 150 MG 24 hr tablet TK 1 T PO QAM 0 Active chlorthalidone (HYGROTON) 25 MG tablet Take 1 tablet (25 mg total) by mouth 1 (one) time each day 30 tablet 11 0 Active buPROPion XL (WELLBUTRIN XL) 150 MG 24 hr tablet TK 1 T PO QAM 0 Active carvedilol (Coreg) 3.125 MG tablet Take 1 tablet (3.125 mg total) by mouth 2 (two) times a day with meals 60 tablet 2 0 Active NIFEdipine XL (PROCARDIA XL) 60 MG 24 hr tablet Take 1 tablet (60 mg total) by mouth 1 (one) time each day Do not crush, chew, or split. 90 tablet 3 4 08/27/20 25 Active Active Problems Problem Noted Date Diagnosed Date Chronic kidney disease, stage 2 (mild) 4 Anemia 07/14/2021 Hypertensive heart and chron ic kidney disease with heart failure and stage 1 through stage 4 chronic kidney disease, or unspecified chronic kidney disease 11/13/2019 Hypertension 11/07/2019 Encounters Date Type Department Care Team Description 09/26/2024 2:30 PM EST Office Visit [facility] [place], [address] [place] [address] Urban Matta MD Chronic kidney disease, stage 2 (mild) (Primary Dx) from Last 3 Months Immunizations Name Administration Dates Next Due Hepatitis B 04/24/2007,12/15/2006,08/15/2006 Influenza (IM) Preservative Free 06/06/2017 Influenza Split 06/28/2013,07/24/2012 Influenza, Quadrivalent, Pre servative Free 07/09/2020,05/13/2015 Influenza, Quadrivalent, Wit h Preservative 06/20/2019,08/02/2018 Influenza, Unspecified 10/19/2022,2021,08/24/2021,09/30,06/06/2017,07/17/2014,07/06/2011 ,07/04/2010,07/11/2008,08/15/2006,04/2005,08/05/1997,08/07/1996, 2 Moderna SARS-COV-2 12/14/2021,12/29/2020, 021 Pneumococcal Polysaccharide 07/06/2011, 6 Td 03/23/2006,05/02/1997,04/01/1991 Tdap 11/10/2011 Zoster 07/09/2020,04/11/2017 Family History Medical History Relation Comments Peripheral vascular disease Father Depression Mother Relation Status Comments Father Mother Sibling Social History Tobacco Use Types Packs/Day Years [...] on file Sexual Orientation Not on file Last Filed Vital Signs Vital Sign Reading Time Taken Comments Blood Pressure 135/83 09/26/2024 2:25 PM EST Pulse 72 09/26/2024 2:25 PM EST Temperature - - Respiratory Rate - - Oxygen Saturation - - Inhaled Oxygen Concentration - - Weight 102 kg (224 lb 12.8 oz) 11/13/2019 8:09 P M EST Height - - Body Mass Index - - Plan of Treatment Upcoming Encounters Date Type Department Care Team (Late st Contact Info) Description 03/27/2025 2:30 PM EDT Office Visit [facility] [place], [address] [facility] [place] [address] Urban Matta MD [address] [facility] [place] [address] Health Maintenance Due Date Last Done Comments Breast Cancer Screening 1955 Hepatitis B Vaccine Aged Out 04/24/2007, 12/15/2006, 08/15/2006 No longer eligible based on patient's age to complete this topic Pneumococcal Vaccine: 65+ Years Completed 03/14/2024, 07/06/2011, 03/23/2006 Influenza Vaccine Completed 06/24/2024, , 10/19/2022, Additional history exists Insurance [employer] Care Teams Woodwinds Teacher Relationship Specialty Start Date End Date Bela Vasquez MD [address] [place] [address] PCP - General Family Medicine 01/24/24
--- OUTSIDE RECORDS SUMMARY | 2024-11-29 14:05 | XMS_ITS | Encounter Summary ---
Author Organization [employer] Address [address] [facility] 7t [place] [address] Care Team Providers Care Nurse Aide Name Role Phone Bela Vasquez MD Primary Care Provider [phone] Urban Matta MD Unavailable [phone] Reason for Visit * Reason Onset Date Comments prior authoritzation 06/12/2024 Encounter Details Date Type Department Care Team (Late st Contact Info) Description 06/12/2024 Telephone [facility] ADULT DENTAL [address] [place], [place] [phone] Jason Juarezaris [address] [place] [address] prior authoritzation Social History Tobacco Use Types Packs/Day Years [...] encounter Miscellaneous Notes * Telephone Encounter - Lorelei Nino - 06/12/2024 12:59 PM EDT Patient called in checking in on status of SRP. Informed patient that prior authorization has been mailed out and upon receiving approval in office, she will get a phone call to schedule appt. Patient states that she contacted insurance and was informed by insurance that no prior authorization is needed for treatment of SRP. Informed patient that message would be sent to office for verification. However, at this time we are waiting for response from insurance. Anything further the office will reach out to her DR documented in this encounter Plan of Treatment Upcoming Encounters Date Type Department Care Team (Late st Contact Info) Description 01/14/2025 1:00 PM EDT Clinical Support [facility] MED [facility] PEDS [address] [place] [address] Melba Savage, RN [address] [place] [address] 02/20/2025 1:00 PM EDT Office Visit [facility] ADULT DENTAL [address] [place] [address] Rosa Calderon documented as of this encounter Visit Diagnoses Not on filedocumented in this encounter Additional Health Concerns Assessment Noted Time PHQ-9 Depression Total Score: 2 02/02/20 23 11:12 AM EDT documented as of this encounter Care Teams Nurse Aide Relationship Specialty Start Date End Date Bela Vasquez MD [address] [place] [address] PCP - General Family Medicine 10/02/18 Urban Matta MD [address] [place] [address] Nephrology 08/27/24 documented as of this encounter
--- OUTSIDE RECORDS SUMMARY | 2024-11-29 14:05 | XMS_ITS | Encounter Summary ---
Author Organization [employer] Address [address] [place] [address] 7t [place] [address] Care Team Providers Care Blending Operator Name Role Phone Bela Vasquez MD Primary Care Provider [phone] Urban Matta MD Unavailable [phone] Reason for Visit * Reason Onset Date Comments Med Refill 04/13/2023 Encounter Details Date Type Department Care Team (Late st Contact Info) Description 04/13/2023 Refill [facility] MED[facility]INE [address] [place], [place] [phone] Bela Vasquez MD [address] [place] [address] Dyslipidemia; Lumbar post-laminectomy syndrome Social History Tobacco Use [...] 1:00 PM EDT Clinical Support [facility] MED & PEDS 505 [facility] [place] [phone] Melba Savage RN [address] [place] [address] 02/20/2025 1:00 PM EDT Office Visit [facility] ADULT DENTAL [address] [place] [address] Rosa Calderon documented as of this encounter Visit Diagnoses Diagnosis Dyslipidemia Other and unspecified hyperlipidemia Lumbar post-laminectomy syndrome Postlaminectomy syndrome, lumbar region documented in this encounter Additional Health Concerns Assessment Noted Time PHQ-9 Depression Total Score: 2 02/02/20 23 11:12 AM EDT documented as of this encounter Care Teams Blending Operator Relationship Specialty Start Date End Date Bela Vasquez MD [facility] [place] [address] PCP - General Family Medicine 10/02/18 Urban Matta MD [address] [place] [address] Nephrology 08/27/24 documented as of this encounter
--- OUTSIDE RECORDS SUMMARY | 2024-11-29 14:05 | XMS_ITS | Patient Health Record ---
Author Organization [employer] [facility] Address [address] [place] [address] Care Team Providers Care Chief Concierge Name Role Phone Christina EWST, Bela Primary Care Provider Ralph Lau [phone] ALLERGIES Allergen (clinical drug ingredient) Drug/Non Drug Allergy documented on EMR Reaction Allergy Type Onset Date Status Motrin Unknown Drug Allergy Active REASON FOR REFERRAL No Information MEDICATIONS Medication SIG (Take, Route, Frequency, Duration) Notes Start Date End Date Status Diclofenac Sodium 1 % Transdermal for 25 Active Albuterol Sulfate (2.5 MG/3ML) 0.083% 3 ml as needed Inhalation every 8 hrs Active oxyCODONE HCl 10 MG 1 tablet as needed O rally every 6 hrs as prn needed for pain Active oxyCODONE HCl 5 MG/5ML 5 ml as needed Or ally every 6 hrs Active dilTIAZem HCl ER Coated Beads 240 MG Oral for 90 Active Atorvastatin Calcium 40 MG 1 tablet Oral ly daily at qhs Active Vitamin D 50 MCG (2000 UT) 1 capsule Ora lly Once a day for 30 day(s) Active SEROquel 400 MG 1 tablet at bedtime Orally Once a day for 30 day(s) Active Flonase Allergy Relief 50 MCG/ACT 1 spray in each nostril Nasally Once a day for 30 day(s) Active KlonoPIN 1 MG 1 tablet Orally 1 ta blet in the morning and 1 tablet in the evening Active DOK 100 MG 1 capsule as needed Orally Once a day for 30 day(s) Active Prilosec 20 MG 2 capsule Orally twi ce a day for 10 day(s) Active MiraLax (colon prep) 17 GM/SCOOP 1/2 of a 238 Gm bottle mixed in 1 quart of Gatorade two days before the colonoscopy. and then 1 238Gm bottle mixed with 2 quarts of Gatorade or Crystal Light the dy before the colonoscopy Orally Do the 1/2 bottle 2 days before the colonoscopy, and then begin the full bottle at 5:00 p.m. the day before the procedure for 2 days 05/31/2022 Active Dulcolax (colon prep) 5 MG Take 2 tablet s at Noon 2 days before the colonoscopy; and then take 2 at 3:00 p.m and 2 at 7:00p.m. the day before the colonoscopy orally two tablet once two days before the colonoscopy, and then two tablets twice a day for one day before the colonoscopy for 2 days 05/31/2022 Active IMMUNIZATIONS Vaccine Route Administration Date Status Comme nts Influenza Unknown 09/30/2019 Administered Influenza Unknown 08/24/2021 Administered SOCIAL HISTORY Tobacco Use: Social History Observation Description Date Details (start date - stop date) Never Smoker NA - NA Sex Assigned At : Social History Observation Description Sex Assigned At Unknown Tobacco Use/Smoking Question Answer Notes Patient is a nonsmoker Alcohol Screen Question Answer Notes Did you have a drink containing alcohol in the p ast year? No Points 0 Interpretation Negative PROBLEMS Problem Type ICD Code Onset Dates Problem Status W/U Status Risk SNOMED Code Notes Problem Encounter for screening for malignant neoplasm of colon (Z12.11) Active confirmed 536777366 Problem Abdominal pain, generalized (R10.84) Active confirmed 699632036 Problem History of Billroth II operation (Z98.0) Active confirmed History of gastrointestinal tract bypass (284020001) Problem Small bowel obstruction due to adhesions (K56.50) Active confirmed Obstruction of small intestine co-occurrent and due to peritoneal adhesions (860483456) PLAN OF TREATMENT Future Test Test Name Order Date UPPER GI ENDOSCOPY 09/16/2011 COLONOSCOPY 01/28/2020 COLONOSCOPY 05/31/2022 Insurance Providers Payer Name Payer Address Payer Phone Subscriber Number Group Number Insured Name Patient Relationship to Insured Coverage Start Date Coverage End Date [employer] [facility] [address] [address] CORINNA Olson [phone] [id number] [employer] Self - patient is the insured 2 [facility] [address] [place] [address] [id number] [employer] Self - patient is the insured MEDICAL (GENERAL) HISTORY Medical History History ICD Code GERD/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 Pritchard. A followup upper endoscopy in 2010 after the surgery revealed a normal-appearing esophagus. HTN Anxiety/Depression Hyperlipidemia Asthma Denies OR,DM,CVA,renal disease Kidney stones She describes a negative col onoscopy many years ago although I don't have any record of that. SBO due to adhesions in [facility]/September 2019-treated with nasogastric tube decompression and resolved without surgery; she also had recurrent small bowel obstructions in December of 2021 and in April of 2022, both of which resolved with nasogastric tube decompression and without surgery. Surgical History Surgery Date(Month/Year) [facility] Back surgery Lap. Salomon fundoplication Sigmoid volvulus with temporary colostom y at [facility] in approx 2017
--- OUTSIDE RECORDS SUMMARY | 2024-11-29 14:05 | XMS_ITS | Encounter Summary ---
Author Organization [employer] Address [address] [facility] 7t [place] [address] Care Team Providers Care Statement Services Representative Name Role Phone Bela Vasquez MD Primary Care Provider [phone] Urban Matta MD Unavailable [phone] Reason for Visit * Reason Comments Med Refill Encounter Details Date Type Department Care Team ([facility] st Contact Info) Description 07/23/2023 Refill [facility] MEDICINE [address] [place], [place] [phone] Bela Vasquez MD [address] [place], [place] [phone] Social History Tobacco Use Types Packs/Day Years [...] Description 01/14/2025 1:00 PM EDT Clinical Support [facility] MED & PEDS 505 [place] [address] Melba Savage, INÉS [address] [place] [address] 02/20/2025 1:00 PM EDT Office Visit [facility] ADULT DENTAL [address] [place] [address] Rosa Calderon documented as of this encounter Visit Diagnoses Not on filedocumented in this encounter Additional Health Concerns Assessment Noted Time PHQ-9 Depression Total Score: 2 02/02/20 23 11:12 AM EDT documented as of this encounter Care Teams Statement Services Representative Relationship Specialty Start Date End Date Bela Vasquez MD [address] [place] [address] PCP - General Family Medicine 10/02/18 Urban Matta MD [address] [place] [address] Nephrology 08/27/24 documented as of this encounter
--- OUTSIDE RECORDS SUMMARY | 2024-11-29 14:05 | XMS_ITS | Encounter Summary ---
Author Organization [employer] Address [address] [facility] 7t [place] [address] Care Team Providers Care Water Jet Operator Name Role Phone Bela Vasquez MD Primary Care Provider [phone] Urban Matta MD Unavailable [phone] Encounter Details Date Type Department Care Team (Late st Contact Info) Description 07/11/2024 Orders Only [facility] MEDICINE [address] [place], [place] [phone] Bela Vasquez MD [address] [place], [place] [phone] Lumbar post-laminectomy syndrome Social History Tobacco Use [...] Description 01/14/2025 1:00 PM EDT Clinical Support [facility] CH[facility] MED & PEDS [address] [place] [address] Melba Savage, INÉS [address] [place] [address] 02/20/2025 1:00 PM EDT Office Visit [facility] ADULT DENTAL [address] [place] [address] Rosa Calderon documented as of this encounter Visit Diagnoses Diagnosis Lumbar post-laminectomy syndrome Postlaminectomy syndrome, lumbar region documented in this encounter Additional Health Concerns Assessment Noted Time PHQ-9 Depression Total Score: 3 06/24/20 24 1:09 PM EDT documented as of this encounter Care Teams Water Jet Operator Relationship Specialty Start Date End Date Bela Vasquez MD [address] [place] [address] PCP - General Family Medicine 10/02/18 Urban Matta MD [address] [place] [address] Nephrology 08/27/24 documented as of this encounter
== END 2024-11-29 11:46 | disposition home or self-care (01) ==
LOC: HO.MAMMO 11:45
PROVIDERS: PCP Family Medicine; Visit Provider Family Medicine
DX: Z12.31 Encounter for screening mammogram for malignant neoplasm of breast (principal); Z13.820 Encounter for screening for osteoporosis; Z78.0 Asymptomatic menopausal state
CPT/HCPCS: 77063; 77067; 77080

== ENCOUNTER → 2024-11-29 13:00 | Outpatient (BNV) | payer OTHER, SELFPAY | PROVIDERS: PCP Family Medicine; Visit Provider Radiology Diagnostic Radiology | DX: Z12.31 Encounter for screening mammogram for malignant neoplasm of breast (principal); E28.39 Other primary ovarian failure | CPT/HCPCS: 77063; 77067; 77080 ==

== ENCOUNTER 2025-03-27 14:53 | Outpatient (REF) | payer OTHER, SELFPAY ==
[2025-03-27 17:51] LABS: MANUAL DIFF FLAG NO
[2025-03-27 17:52] LABS: Appearance Urine Clear; Color Urine Yellow; Glucose Urine UA Negative (Negative); Leukocyte Esterase Urine Trace (Negative); Nitrite Urine Negative (Negative); PH 5.5 (5.0-9.0); Specific Gravity - Urine 1.025 (1.005-1.025); UMIC TRIGGER UA YES; Urine Blood Negative (Negative); Urine Ketones Trace mg/dL (Negative); Urine Protein Trace mg/dL (Neg-Trace)
[2025-03-27 17:58] LABS: Bacteria Urine 1+ (None Seen); Hyaline Casts Urine 0-2 /LPF (0-2); RBC Urine 0-2 /HPF (0-2)
[2025-03-27 18:01] LABS: Basophils Absolute Auto 0.1 X10*3/uL (0.0-0.2); Basophils Percent Auto 0.6 % (0-2); Eosinophils Absolute Auto 0.2 X10*3/uL (0.0-0.4); Eosinophils Percent Auto 2.2 % (0-4); Hematocrit 36.3 % (37.0-47.0); Hemoglobin 11.6 g/dl (12.0-16.0); Imm Gran Abs Auto 0.03 X10*3/uL (0.00-0.03); Imm Gran Pct Auto 0.4 % (0.0-0.4); Lymphocytes Absolute Auto 1.9 X10*3/uL (1.2-4.9); Lymphocytes Percent Auto 22.4 % (20-40); Mean Corpuscular Hemoglobin 28.4 pg (27.0-33.0); Mean Corpuscular Volume 88.8 fL (80.0-98.0); Mean Platelet Volume 9.9 fL (9.4-12.3); Monocytes Absolute Auto 0.5 X10*3/uL (0.1-1.2); Monocytes Percent Auto 6.1 % (2-11); Neutrophils Absolute Auto 5.7 x10*3/uL (2.0-8.3); Neutrophils Percent Auto 68.3 % (45-73); Platelet Count 330 X10*3/uL (160-400); Red Blood Count 4.09 X10*6/uL (4.20-5.50); Red Cell Distribution Width 13.2 % (11.0-16.0); White Blood Count 8.4 X10*3/uL (4.8-10.8)
--- OUTSIDE RECORDS SUMMARY | 2025-03-27 18:05 | XMS_ITS | Encounter Summary ---
Author Organization [employer] Address [address] [place] [address] [address] [place] [address] Care Team Providers Care Gate Tender Name Role Phone Bela Vasquez MD Primary Care Provider [phone] Urban Matta MD Unavailable [phone] Reason for Visit * Reason Onset Date Comments Med Refill 05/11/2023 Encounter Details Date Type Department Care Team (Late st Contact Info) Description 05/11/2023 Telephone [facility] [address] [place], [place] [phone] Bela Vasquez MD [address] [place], [place] [phone] Med Refill Social History Tobacco Use Types [...] Miscellaneous Notes * Telephone Encounter - Marisol Moreno - 05/11/2023 10:37 AM EDT Tc from pt requesting med refill for medication oxyCODONE (Roxicodone) 5 MG immediate release tablet oxyCODONE ER (OxyCONTIN) 10 MG 12 hr tablet documented in this encounter Plan of Treatment Upcoming Encounters Date Type Department Care Team (Late st Contact Info) Description 04/08/2025 1:00 PM EDT Office Visit [facility] [address] [place] [address] Bela Vasquez MD [address] [place] [address] 04/29/2025 1:30 PM EDT Clinical Support [facility] [address] [place] [address] Melba Savage, RN [address] [place], [place] [phone] documented as of this encounter Visit Diagnoses Not on filedocumented in this encounter Additional Health Concerns Assessment Noted Time PHQ-9 Depression Total Score: 2 02/02/20 23 11:12 AM EDT documented as of this encounter Care Teams Gate Tender Relationship Specialty Start Date End Date Bela Vasquez MD [address] [place] [id number] PCP - General Family Medicine 10/02/18 Urban Matta MD [address] [place] [address] Nephrology 08/27/24 documented as of this encounter
[2025-03-27 18:11] LABS: Creatinine Urine 214.94 mg/dL; Microalbum/Creatinine Ratio Ur 3.7 ug/mg cr (<30); Protein/Creatinine Ratio, Ur 0.07 (<0.2); Total Protein Urine Random 15 mg/dL (<12)
[2025-03-27 18:22] LABS: Albumin Level 4.3 g/dL (3.5-5.0); Anion Gap 12 (12-20); Blood Urea Nitrogen 13 mg/dL (9-16); Calcium 9.3 mg/dL (8.4-10.2); Carbon Dioxide 26 mmol/L (22-29); Chloride 108 mmol/L (96-108); Estimated Glomerular Filt Rate 47; Glucose Random 87 mg/dL (60-115); Phosphorus 2.9 mg/dL (2.7-4.5); Sodium 141 mmol/L (135-145)
[2025-03-27 18:40] LABS: Vitamin D 25-OH Total 52.6 ng/mL (>30)
== END 2025-03-27 14:54 | disposition home or self-care (01) ==
LOC: HO.CHCLDS 14:53
PROVIDERS: PCP Internal Medicine Nephrology; Visit Provider Internal Medicine Nephrology
DX: N18.31 Chronic kidney disease, stage 3a (principal)
CPT/HCPCS: 36415; 80051; 81001; 82040; 82043; 82306; 82310; 82565; 82570; 82947; 84100; 84156; 84520; 85025

== ENCOUNTER 2025-03-29 13:22 | Inpatient (IN) | payer OTHER, SELFPAY ==
[2025-03-29] VITALS (10 sets, daily range): BP systolic 121–156; BP diastolic 56–85; PULSE 83–110; RESP 16–22; TEMP 36.6–37.1; O2SAT 87–100; BMI 38.1; BMI 36.8
--- NOTE | ~2025-03-29 | XR_ITS ---
EXAMINATION: XR CHEST 1 VIEW HISTORY: sob COMPARISON: Comparison is made with the prior examination dated 12/07/2023. FINDINGS: Two AP portable views of the chest performed at 1:00 AM are submitted. There is linear subsegmental atelectasis at the left lung base. The right lung is clear. There is no pleural effusion, pneumothorax, or pulmonary vascular congestion. The heart is normal in size. There is degenerative disc disease of the spine. XR/XR chest 1V IMPRESSION: Linear subsegmental atelectasis at the left lung base. Electronically signed by: Ralph Lord MD 04/01/2025 07:34 AM EDT
--- NOTE | ~2025-03-29 | CT_ITS ---
CLINICAL HISTORY: left sided abdominal pain CT abdomen and pelvis with contrast Comparison: CT/SR - CT ABDOMEN PELVIS W IV CON - 03/28/24 10:00 EDT Findings: No consolidation or effusion. The gallbladder is surgically absent. Minimal prominence of intrahepatic biliary ducts and common bile duct is at the upper limit of normal post cholecystectomy. Significant fatty infiltration of the pancreas. Adrenal glands are normal. Enhancement of bilateral kidneys. No ureteral stones and no hydronephrosis hydroureter. No perinephric stranding. Small hiatal hernia. Stomach is mildly distended. Multiple mildly to moderately dilated small bowel loops are demonstrated some are contrast filled and others fluid-filled with some air-fluid levels. There has been no interval worsening in the degree of small-bowel distention, but more small bowel loops are not dilated mid to distal small bowel all the way to the terminal ileum. There is mild mesenteric stranding/edema with minimal fluid in the mesentery. No pneumatosis or pneumoperitoneum. Appendix not identified. Sigmoid colon anastomosis again visualized. Uterus is absent. Urinary bladder within normal limits. No aneurysm of the abdominal aorta. No acute osseous process. Stable postoperative changes with posterior fusion at L5-S1. IMPRESSION: 1. There has been no interval worsening in the degree of small-bowel distention, but more small bowel loops are no dilated including mid and distal small bowel to the level of the terminal ileum. Findings may represent partial or developing distal small bowel obstruction. There is now edema in the bowel mesentery and minimal fluid in the bowel mesentery. No pneumatosis or pneumoperitoneum. Clinical correlation and continued follow-up recommended. 2. Additional stable findings as described. This document has been electronically signed by: Ryann Jeter MD on 03/29/2025 17:20:06
--- NOTE | ~2025-03-29 | XR_ITS ---
EXAMINATION: XR ABDOMEN SUPINE AND ERECT WITH CHEST (ABD ACUTE SERIES) HISTORY: f/u SBO COMPARISON: Comparison is made with the prior examination dated 03/21/2024. FINDINGS: Supine and left lateral decubitus views of the abdomen are submitted. There is a moderate amount of gas within large and small bowel loops. There is oral contrast material in the ascending and descending colon. No free intraperitoneal gas is identified. There are surgical clips in the right upper quadrant and in the pelvis. There are no abnormal soft tissue masses. The patient is status post posterior fusion of L5 and S1. XR/XR acute abdomen series IMPRESSION: Nonspecific bowel gas pattern with gas in multiple large and small bowel loops. Oral contrast in the colon. Electronically signed by: Ralph Lord MD 03/31/2025 08:47 AM EDT
--- OUTSIDE RECORDS SUMMARY | 2025-03-29 13:44 | XMS_ITS | Encounter Summary ---
Author Organization [employer] Address [address] [place] [address] 7[address] [place] [address] Care Team Providers Care Laundry Washer Name Role Phone Bela Vasquez MD Primary Care Provider [phone] Urban Matta MD Unavailable Reason for Visit * Reason Onset Date Comments Med Refill 05/11/2023 Encounter Details Date Type Department Care Team (Late st Contact Info) Description 05/11/2023 Telephone [facility] [address] [place], [place] [phone] Bela Vasquez MD [address] [place], [place] [phone] Med Refill Social History Tobacco Use Types [...] Description 04/08/2025 1:00 PM EDT Office Visit [facility] [address] [place] [address] Bela Vasquez MD [address] [place] [address] 04/29/2025 1:30 PM EDT Clinical Support [facility] [address] [place] [address] Melba Savage, RN [address] [place], [place] [phone] documented as of this encounter Visit Diagnoses Not on filedocumented in this encounter Additional Health Concerns Assessment Noted Time PHQ-9 Depression Total Score: 2 02/02/20 23 11:12 AM EDT documented as of this encounter Care Teams Laundry Washer Relationship Specialty Start Date End Date Bela Vasquez MD [address] [place] [id number] PCP - General Family Medicine 10/02/18 Urban Matta MD [address] [place] [address] Nephrology 08/27/24 documented as of this encounter
[2025-03-29 13:45] LABS: Hematocrit 40.2 % (37.0-47.0); Hemoglobin 13.3 g/dl (12.0-16.0); Imm Gran Abs Auto 0.04 X10*3/uL (0.00-0.03); Imm Gran Pct Auto 0.3 % (0.0-0.4); Lymphocytes Absolute Auto 1.4 X10*3/uL (1.2-4.9); MANUAL DIFF FLAG NO; Mean Corpuscular HGB Conc 33.1 g/dl (31.0-35.0); Mean Corpuscular Hemoglobin 28.6 pg (27.0-33.0); Mean Corpuscular Volume 86.5 fL (80.0-98.0); NRBC Abs Auto 0.000 X10*3/uL (0.0-0.012); NRBC Pct Auto 0.0 /100WBC (0.0-0.2); Platelet Count 344 X10*3/uL (160-400); Red Blood Count 4.65 X10*6/uL (4.20-5.50); White Blood Count 13.0 X10*3/uL (4.8-10.8)
[2025-03-29 14:04] LABS: Alanine Aminotransferase 8 U/L (0-31); Albumin Level 4.4 g/dL (3.5-5.0); Alkaline Phosphatase 98 U/L (39-117); Anion Gap 16 (12-20); Aspartate Amino Transferase 19 U/L (5-31); Blood Urea Nitrogen 12 mg/dL (9-16); Calcium 10.0 mg/dL (8.4-10.2); Carbon Dioxide 26 mmol/L (22-29); Chloride 105 mmol/L (96-108); Creatinine Clr Calc Pharmacy 45.1; Estimated Glomerular Filt Rate 43; Lipase 7 U/L (8-78); Magnesium 1.8 mg/dL (1.6-2.6); Potassium 4.6 mmol/L (3.3-5.1); Sodium 142 mmol/L (135-145); Total Protein 7.4 g/dL (6.5-8.0)
--- NOTE | 2025-03-29 14:15 | ED.GENADULT ---
HPI - General Adult General Chief complaint: Abdominal Pain Stated complaint: ABD PAIN Time Seen by Provider: 03/29/25 13:35 Source: patient and RN notes reviewed Mode of arrival: EMS Limitations: no limitations History of Present Illness ED Provider: Donal HPI narrative: 69-year-old female with a past medical history significant hypertension, anxiety, asthma, depression, history of small-bowel obstruction, most recently 1 year ago presents for evaluation of abdominal pain. The patient reports that her pain started late last night. She has associated nausea and vomiting. She has not had a bowel movement since her pain started. She believes she may have passed a little bit of gas this morning but is not entirely sure. 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. Related Data Home Medications ?Medication ?Instructions ?Recorded ?Confirmed atorvastatin 40 mg tablet 1 tab PO BEDTIME 07/14/20 05/02/24 clonazepam 1 mg tablet 1 tab PO TID PRN Anxiety 07/14/20 05/02/24 escitalopram oxalate 10 mg tablet 1 tab PO DAILY 07/14/20 05/02/24 omeprazole 20 mg capsule,delayed 1 cap PO DAILY@0630 07/14/20 05/02/24 release oxycodone 10 mg tablet,crush 1 tab PO BID 07/14/20 05/02/24 resistant,extended release 12 hr (OxyContin) oxycodone 5 mg tablet 1 tab PO Q12H PRN pain 07/14/20 05/02/24 risperidone 0.5 mg tablet 1 tab PO BID 07/14/20 05/02/24 bupropion HCl 150 mg 24 hr tablet, 150 mg PO DAILY 12/31/21 05/02/24 extended release cholecalciferol (vitamin D3) 25 1 tab PO DAILY 12/31/21 05/02/24 mcg (1,000 unit) tablet nifedipine 60 mg tablet,extended 1 tab PO BEDTIME 12/31/21 05/02/24 release 24 hr quetiapine 400 mg tablet 1 tab PO BEDTIME 12/31/21 05/02/24 bisacodyl 5 mg tablet 5 mg PO DAILY 03/28/24 05/02/24 albuterol sulfate 90 mcg/actuation inhalation 04/30/24 05/02/24 aerosol inhaler Allergies Allergy/AdvReac Type Severity Reaction Status Date / Time amlodipine Allergy Mild Unknown Verified 03/29/25 13:34 carvedilol Allergy Mild Unknown Verified 03/29/25 13:34 chlorthalidone Allergy Mild Unknown Verified 03/29/25 13:34 diltiazem Allergy Mild Unknown Verified 03/29/25 13:34 lisinopril Allergy Mild Unknown Verified 03/29/25 13:34 NSAIDS (Non-Steroidal Allergy Mild Unknown Verified 03/29/25 13:34 Anti-Inflamma ibuprofen (From Motrin) Allergy Abdominal Verified 03/29/25 13:34 Pain Review of Systems Constitutional: Constitutional: Denies body ache(s), Denies chills and Denies headache(s) Eyes: Eyes: Denies blurry vision ENT: Denies headache(s) Cardiovascular: Cardiovascular: Denies chest pain and Denies chest pain at rest Gastrointestinal: Gastrointestinal: Reports abdominal pain, Reports nausea and Reports vomiting Musculoskeletal: Musculoskeletal: Denies back pain Neurologic: Denies headache(s) [facility] Past Medical History Medical History Hx of renal calculi Asthma Elevated cholesterol HTN (hypertension) Depression Anxiety Hx of small bowel obstruction GERD (gastroesophageal reflux disease) Surgical History S/P cholecystectomy Hx of exploratory laparotomy (11/2016) History of colon surgery Hx of colonoscopy Hx of hysterectomy, total History of Salomon fundoplication Family History Family History Father PVD (peripheral vascular disease) Mother Depression Social History Social History Household Members: None Housing: Apartment Do you presently have visiting nurse or other home services: No Alcohol intake: never Patient Tobacco Use Status: Never used Tobacco Smoked in Last 30 Days: No Second Hand Smoke Exposure: No Use of substances other than those prescribed or required for medical reasons: No Advance Directives: No Advance Directives Information Provided: Yes Do you have a plan to hurt others: No Plan service: No Current occupational status: disabled Physical Exam ED Vital Signs: Vital Signs - 24 hr 03/29/25 13:32 03/29/25 14:25 03/29/25 14:41 Temperature 97.9 F Pulse Rate 83 110 H Respiratory Rate 22 H 18 20 Blood Pressure 156/71 H 144/66 H Pulse Oximetry 99 97 Oxygen Delivery Method Room Air Room Air Oxygen Flow Rate 03/29/25 15:46 03/29/25 15:48 03/29/25 16:07 Temperature Pulse Rate 94 Respiratory Rate 16 16 Blood Pressure 129/66 Pulse Oximetry 95 87 L Oxygen Delivery Method Room Air Room Air Oxygen Flow Rate 03/29/25 16:08 03/29/25 17:38 03/29/25 17:38 Temperature Pulse Rate 98 Respiratory Rate 22 H 18 Blood Pressure 143/85 H Pulse Oximetry 96 99 Oxygen Delivery Method Nasal Cannula Nasal Cannula Oxygen Flow Rate 2 2 BMI result Body Mass Index 38.1 Const General: healthy appearing, no acute distress, alert and awake Nutritional Appearance: well nourished Orientation/consciousness: patient oriented x3 HENMT Head: Yes normocephalic and Yes atraumatic Eyes Eyelids: Yes eyelids normal Conjunctivae: conjunctivae normal Sclerae: sclerae normal Corneas: corneas normal Pupils: Equal, round and reactive pupils present EOM: EOMs intact bilaterally Neck Neck: Yes full ROM Resp Effort & Inspection: normal respiratory effort, able to speak in complete sentences and not labored Cardio Rate: regular rate Rhythm: regular rhythm GI Other: Large midline surgical scar Inspection: No distended Palpation (GI): Soft to palpation, not firm, Tenderness to palpation present (GI) in the epigastrum and in the LUQ, Guarding due to palpation present (GI) and not rigid Skin General skin exam: elasticity normal Neuro General: patient oriented x3 Cranial nerves: Yes Equal, round and reactive pupils present and Yes Bilaterally intact EOM present Cognition (Neuro): normal cognition Extrem Other: Moving all extremities well without any obvious deformities Course Reevaluation(s) Reevaluation #1: CT scan shows small bowel obstruction, we will discuss with general surgery Time: 17:31 Reevaluation #2: Discussed with Dr. Bell and the patient will be admitted to the surgical service Time: 18:04 Medications Administered Discontinued Medications Generic Name Dose Route Start Last Admin Trade Name Ashley PRN Reason Stop Dose Admin Hydromorphone HCl 1 mg 03/29/25 14:36 03/29/25 14:41 Hydromorphone Hcl 1 Mg/Ml Syringe IVPUSH 03/29/25 14:37 1 mg ONCE ONE Administration Protocol Hydromorphone HCl 1 mg 03/29/25 15:24 03/29/25 15:46 Hydromorphone Hcl 1 Mg/Ml Syringe IVPUSH 03/29/25 15:25 1 mg ONCE ONE Administration Protocol Hydromorphone HCl 1 mg 03/29/25 17:31 03/29/25 17:38 Hydromorphone Hcl 1 Mg/Ml Syringe IVPUSH 03/29/25 17:32 1 mg ONCE ONE Administration Protocol Sodium Chloride 1,000 mls @ 999 mls/hr 03/29/25 14:00 03/29/25 15:30 Ns IV 03/29/25 15:00 Infused .Q1H1M JORDAN Infusion Iohexol 100 ml 03/29/25 15:34 03/29/25 15:34 Iohexol 350 Mg/Ml 100 Ml Infus..Btl IV 03/29/25 15:35 85 ml ONCE ONE Administration Morphine Sulfate 4 mg 03/29/25 13:49 03/29/25 13:55 Morphine Sulfate 4 Mg/Ml Cartridge IVPUSH 03/29/25 13:50 4 mg ONCE ONE Administration Protocol Ondansetron HCl 4 mg 03/29/25 13:49 03/29/25 13:55 Ondansetron Hcl 4 Mg/2 Ml Vial IVPUSH 03/29/25 13:50 4 mg ONCE ONE Administration Medical Decision Making Medical Decision Making MDM Narrative: 69-year-old female with a past medical history as above presents for evaluation of abdominal pain. Given her previous surgical history, there is a high suspicion for bowel obstruction. I ordered a CT scan with IV and oral contrast. Labs are pending at added on a lactic acid due to concern for obstruction. Less likely infectious process. The patient does not have a history of diverticulitis or obstructive uropathy per her report. Also in the differential includes peptic ulcer disease, gastritis, gastroenteritis Differential Diagnosis Differential Diagnoses: The differential diagnosis associated with the presentation includes As above Admission/Observation Consideration of admission/observation: Escalation of care including admission/observation considered Consult Healthcare Provider Management of the patient was discussed with: Director Of Regional Sales Lab Data MDM Lab Attestation statement: I reviewed the patient's lab results. Mild leukocytosis to 13.0, no anemia. Normal platelet count. No electrolyte abnormalities. Renal function within normal limits. 03/29/25 13:40 03/29/25 13:40 Labs: Lab Results 03/29/25 03/29/25 Range/Units 13:40 16:26 WBC 13.0 H (4.8-10.8) X10*3/uL RBC 4.65 (4.20-5.50) X10*6/uL Hgb 13.3 (12.0-16.0) g/dl Hct 40.2 (37.0-47.0) % MCV 86.5 (80.0-98.0) fL MCH 28.6 (27.0-33.0) pg MCHC 33.1 (31.0-35.0) g/dl RDW 13.2 (11.0-16.0) % Plt Count 344 (160-400) X10*3/uL MPV 9.2 L (9.4-12.3) fL Immature Gran % (Auto) 0.3 (0.0-0.4) % Neut % (Auto) 83.3 H (45-73) % Lymph % (Auto) 10.8 L (20-40) % [place] % (Auto) 4.7 (2-11) % Eos % (Auto) 0.7 (0-4) % Baso % (Auto) 0.2 (0-2) % Lymph # (Auto) 1.4 (1.2-4.9) X10*3/uL [place] # (Auto) 0.6 (0.1-1.2) X10*3/uL Eos # (Auto) 0.1 (0.0-0.4) X10*3/uL Baso # (Auto) 0.0 (0.0-0.2) X10*3/uL Abs Immat Gran (auto) 0.04 H (0.00-0.03) X10*3/uL Absolute Neuts (auto) 10.8 H (2.0-8.3) x10*3/uL Absolute Nucleated RBC 0.000 (0.0-0.012) X10*3/uL Nucleated RBC % (auto) 0.0 (0.0-0.2) /100WBC Sodium 142 (135-145) mmol/L Potassium 4.6 (3.3-5.1) mmol/L Chloride 105 (96-108) mmol/L Carbon Dioxide 26 (22-29) mmol/L Anion Gap 16 (12-20) BUN 12 (9-16) mg/dL Creatinine 1.23 (0.5-1.4) mg/dL Estim Creat Clear Calc 45.1 Estimated GFR 43 Random Glucose 99 (60-115) mg/dL Lactic Acid 1.2 (0.5-2.0) mmol/L Calcium 10.0 D (8.4-10.2) mg/dL Magnesium 1.8 (1.6-2.6) mg/dL Total Bilirubin 0.4 (0.0-1.0) mg/dL AST 19 (5-31) U/L ALT 8 (0-31) U/L Alkaline Phosphatase 98 (39-117) U/L Total Protein 7.4 (6.5-8.0) g/dL Albumin 4.4 (3.5-5.0) g/dL Lipase 7 L (8-78) U/L Independent Interpretation I performed an independent interpretation of an: CT Scan (Air-fluid levels consistent with small-bowel obstruction) Radiology Impression Discussion of test interpretation with radiology: I have reviewed the radiologist's reading. Radiologist Impression: Findings: No consolidation or effusion. The gallbladder is surgically absent. Minimal prominence of intrahepatic biliary ducts and common bile duct is at the upper limit of normal post cholecystectomy. Significant fatty infiltration of the pancreas. Adrenal glands are normal. Enhancement of bilateral kidneys. No ureteral stones and no hydronephrosis hydroureter. No perinephric stranding. Small hiatal hernia. Stomach is mildly distended. Multiple mildly to moderately dilated small bowel loops are demonstrated some are contrast filled and others fluid-filled with some air-fluid levels. There has been no interval worsening in the degree of small-bowel distention, but more small bowel loops are not dilated mid to distal small bowel all the way to the terminal ileum. There is mild mesenteric stranding/edema with minimal fluid in the mesentery. No pneumatosis or pneumoperitoneum. Appendix not identified. Sigmoid colon anastomosis again visualized. Uterus is absent. Urinary bladder within normal limits. No aneurysm of the abdominal aorta. No acute osseous process. Stable postoperative changes with posterior fusion at L5-S1. IMPRESSION: 1. There has been no interval worsening in the degree of small-bowel distention, but more small bowel loops are no dilated including mid and distal small bowel to the level of the terminal ileum. Findings may represent partial or developing distal small bowel obstruction. There is now edema in the bowel mesentery and minimal fluid in the bowel mesentery. No pneumatosis or pneumoperitoneum. Clinical correlation and continued follow-up recommended. 2. Additional stable findings as described. This document has been electronically signed by: Ryann Jeter MD on 03/29/2025 17:20:06 Discharge Plan Discharge Clinical Impression: Small bowel obstruction Patient Disposition: Admitted As Inpatient Print Language: Albanian
--- NOTE | 2025-03-29 14:26 | PC.NURSE ---
Pt sinus tach on cardiac cath lab technologist, HR- 100s-110s. Denies cp/sob/palpitations. Vitals updated in worklist. Obed BAKER aware.
[2025-03-29] MEDS: iohexoL 350 MG/ML 100 ML INFUS..BTL IV (15:34)
--- NOTE | 2025-03-29 16:19 | PC.NURSE ---
Pt O2 sat decreased to 87% on RA after medicated per MAR for pain. Obed BAKER made aware. Pt placed on 2L O2 NC- O2 sat increased to mid 90s- denies SOB.
--- NOTE | 2025-03-29 16:21 | ECG_ITS ---
Test Reason : WEAKNESS Blood Pressure : */* mmHG Vent. Rate : 94 BPM Atrial Rate : 94 BPM P-R Int : 136 ms QRS Dur : 82 ms QT Int : 344 ms P-R-T Axes : 41 -43 22 degrees QTcB Int : 430 ms Normal sinus rhythm Left axis deviation Minimal voltage criteria for LVH, may be normal variant ( R in aVL ) Possible Anterolateral infarct , age undetermined Abnormal ECG When compared with ECG of 19-Mar-2016 20:58, Borderline criteria for Anterior infarct are now Present Borderline criteria for Anterolateral infarct are now Present Referred By: Jose Mansfield Electronically Signed By: BELKIS CHI
--- NOTE | 2025-03-29 18:23 | PM.HPGS ---
History of Present Illness History of Present Illness Date of Service: 03/29/25 Chief complaint: Abdominal pain Narrative: 69-year-old female with a past medical history significant hypertension, anxiety, asthma, depression, history of small-bowel obstruction, most recently 1 year ago presents for evaluation of abdominal pain. She has had several admissions for partial small bowel obstruction and has done well without requiring surgery. She has an extensive surgical history and details are uncertain but seems have included a sigmoid resection for sigmoid volvulus, possible ostomy, ex lap with drainage of intraabdominal abscess, ex lap colostomy reversal with primary colorectal anastomosis and parastomal hernia repair at [facility]. She also has had hysterectomy, cholecystectomy and salomon fundoplication This time she says she has not had a bowel movement for 2 days and was generally feeling well until yesterday when she started having more abdominal pain. This progressed more and she woke up feeling nauseated and vomiting. She has not vomited since she has been here. She says the pain comes in in holds her very tightly. She has been passing gas though. [facility] Past Medical History Medical History Hx of renal calculi Asthma Elevated cholesterol HTN (hypertension) Depression Anxiety Hx of small bowel obstruction GERD (gastroesophageal reflux disease) Family History Family History Father PVD (peripheral vascular disease) Mother Depression Surgical History Surgical History S/P cholecystectomy Hx of exploratory laparotomy (11/2016) History of colon surgery Hx of colonoscopy Hx of hysterectomy, total History of Salomon fundoplication Social History Social History Household Members: None Housing: Apartment Do you presently have visiting nurse or other home services: Yes ([employer]PERATOR) Alcohol intake: never Patient Tobacco Use Status: Never used Tobacco Smoked in Last 30 Days: No Second Hand Smoke Exposure: No Use of substances other than those prescribed or required for medical reasons: No Have you been hit, kicked, punched, or otherwise hurt by someone within the past year? If so, by whom?: No Do you feel safe in your current relationship?: No Current Relationship Is there a partner from a previous relationship who is making you feel unsafe now?: No Are you made to feel afraid or neglected: No Advance Directives: No Advance Directives Information Provided: Yes Do you have a plan to hurt others: No Plan Nutrition Risks: No Nutritional Risk Patient : No : No Poor oral hygiene: No service: No Current occupational status: disabled Meds Allergies Allergy/AdvReac Type Severity Reaction Status Date / Time amlodipine Allergy Mild Unknown Verified 03/29/25 13:34 carvedilol Allergy Mild Unknown Verified 03/29/25 13:34 chlorthalidone Allergy Mild Unknown Verified 03/29/25 13:34 diltiazem Allergy Mild Unknown Verified 03/29/25 13:34 lisinopril Allergy Mild Unknown Verified 03/29/25 13:34 NSAIDS (Non-Steroidal Allergy Mild Unknown Verified 03/29/25 13:34 Anti-Inflamma ibuprofen (From Motrin) Allergy Abdominal Verified 03/29/25 13:34 Pain Home Medications ?Medication ?Instructions ?Recorded ?Confirmed ?Last Taken ?Type atorvastatin 40 mg tablet 1 tab PO BEDTIME 07/14/20 05/02/24 03/27/24 History clonazepam 1 mg tablet 1 tab PO BID PRN Anxiety 07/14/20 05/02/24 03/27/24 History escitalopram oxalate 10 mg tablet 1 tab PO DAILY 07/14/20 05/02/24 03/27/24 History omeprazole 20 mg capsule,delayed 1 cap PO BID@0630,1630 07/14/20 05/02/24 03/27/24 History release oxycodone 10 mg tablet,crush 1 tab PO BID 07/14/20 05/02/24 03/27/24 History resistant,extended release 12 hr (OxyContin) oxycodone 5 mg tablet 1 tab PO Q12H PRN pain 07/14/20 05/02/24 03/27/24 History risperidone 0.5 mg tablet 1 tab PO BID 07/14/20 05/02/24 03/27/24 History bupropion HCl 150 mg 24 hr tablet, 150 mg PO DAILY 12/31/21 05/02/24 03/27/24 History extended release cholecalciferol (vitamin D3) 25 1 tab PO DAILY 12/31/21 05/02/24 03/27/24 History mcg (1,000 unit) tablet nifedipine 60 mg tablet,extended 1 tab PO BEDTIME 12/31/21 05/02/24 03/27/24 History release 24 hr quetiapine 400 mg tablet 1 tab PO BEDTIME 12/31/21 05/02/24 03/27/24 History bisacodyl 5 mg tablet 5 mg PO DAILY 03/28/24 05/02/24 03/27/24 History albuterol sulfate 90 mcg/actuation inhalation 04/30/24 05/02/24 Unknown History aerosol inhaler alendronate 70 mg tablet 70 mg PO QWEEK 03/29/25 Unknown History Physical Exam Vital Signs: Vital Signs: Last Vital Signs Temp 97.9 F 03/29/25 13:32 Pulse 98 03/29/25 17:38 Resp 18 03/29/25 17:38 BP 143/85 H 03/29/25 17:38 Pulse Ox 99 03/29/25 17:38 O2 Del Method Nasal Cannula 03/29/25 17:38 O2 Flow Rate 2 03/29/25 17:38 BMI result Body Mass Index 38.1 Const: General: cooperative and healthy appearing Resp: Effort & Inspection: normal respiratory effort Auscultation: clear to auscultation bilaterally Cardio: Rate: regular rate Rhythm: regular rhythm GI: Other: Abdomen is soft obese mild diffuse tenderness quiet bowel sounds Skin: General skin exam: no rashes or lesions noted Psych: Appearance: grossly normal Mental Status: mental status grossly normal Speech and movement: Normal speech and movement present Affect: normal affect Attitude: cooperative Results Results Labs: Short CBC 03/29/25 Range/Units 13:40 WBC 13.0 H (4.8-10.8) X10*3/uL Hgb 13.3 (12.0-16.0) g/dl Hct 40.2 (37.0-47.0) % Plt Count 344 (160-400) X10*3/uL BMP 03/29/25 13:40 Sodium 142 Potassium 4.6 Chloride 105 Carbon Dioxide 26 BUN 12 Creatinine 1.23 Calcium 10.0 D Liver Function 03/29/25 Range/Units 13:40 Total Bilirubin 0.4 (0.0-1.0) mg/dL AST 19 (5-31) U/L ALT 8 (0-31) U/L Alkaline Phosphatase 98 (39-117) U/L Albumin 4.4 (3.5-5.0) g/dL Additional studies: Patient: Delphine Martínez MR#: [id number] : 1955 Acct:[id number] Age/Sex: 69 / F ADM Date: 03/29/25 Loc: [place] [address]: Ashley Bell MD Ordering Physician: Jose Mansfield Date of Service: 03/29/25 Procedure(s): CT abdomen pelvis w IV con Accession Number(s): [id number] cc: Jose Mansfield; Bela Vasquez MD~ Report Number: [id number]: Total DLP = 814.00 mGy-cm ADDENDUMThis document has been electronically signed by: Ryann Jeter MD on 03/29/2025 17:20:06 ADDENDUM: Addendum: In the original report date of the previous examination was incorrect. Date of previous comparison study is 03/28/2024. No additional corrections are needed to be made to the original report. This document has been electronically signed by: Ryann Jeter MD on 03/29/2025 19:06:55 Addendum Dictated By: Ryann Jeter MD Addendum Signed By: <Electronically signed by Ryann Jeter MD in [place]> 03/29/251906 Addendum Cosigned By: DD/ TD/TT: 03/29/25 CLINICAL HISTORY: left sided abdominal pain CT abdomen and pelvis with contrast Comparison: CT/SR - CT ABDOMEN PELVIS W IV CON - 03/28/24 10:00 EDT Findings: No consolidation or effusion. The gallbladder is surgically absent. Minimal prominence of intrahepatic biliary ducts and common bile duct is at the upper limit of normal post cholecystectomy. Significant fatty infiltration of the pancreas. Adrenal glands are normal. Enhancement of bilateral kidneys. No ureteral stones and no hydronephrosis hydroureter. No perinephric stranding. Small hiatal hernia. Stomach is mildly distended. Multiple mildly to moderately dilated small bowel loops are demonstrated some are contrast filled and others fluid-filled with some air-fluid levels. There has been no interval worsening in the degree of small-bowel distention, but more small bowel loops are not dilated mid to distal small bowel all the way to the terminal ileum. There is mild mesenteric stranding/edema with minimal fluid in the mesentery. No pneumatosis or pneumoperitoneum. Appendix not identified. Sigmoid colon anastomosis again visualized. Uterus is absent. Urinary bladder within normal limits. No aneurysm of the abdominal aorta. No acute osseous process. Stable postoperative changes with posterior fusion at L5-S1. IMPRESSION: 1. There has been no interval worsening in the degree of small-bowel distention, but more small bowel loops are no dilated including mid and distal small bowel to the level of the terminal ileum. Findings may represent partial or developing distal small bowel obstruction. There is now edema in the bowel mesentery and minimal fluid in the bowel mesentery. No pneumatosis or pneumoperitoneum. Clinical correlation and continued follow-up recommended. 2. Additional stable findings as described. This document has been electronically signed by: Ryann Jeter MD on 03/29/2025 17:20:06 Dictated By: Ryann Jeter MD Signed By: <Electronically signed by Ryann Jeter MD in [place]> 03/29/25 1720 DD/ 172 TD/TT: 03/29/25 172 Contact Finger Assembler: Assessment and Plan (1) Small bowel obstruction: Status: Acute Plan 69-year-old female with another episode of partial small bowel obstruction status post multiple surgeries in the past. Her last bowel obstruction was about a year ago and improved with conservative care. Since she is not nauseated or throwing up right now in her CAT scan does not show very distended stomach we will plan to hold off on NG tube decompression. Continue with NPO IV fluid resuscitation and bowel rest. We will get medical team consultation for help with medical management and her medications. Quality Stroke Does the patient have a stroke diagnosis?: No VTE Prior VTE?: No VTE Risk Level:: Surgical - low VTE Device Contraindication: N/A - Device Ordered VTE Drug Contraindication: N/A - Med Ordered Procedures Date of Service Date of Service: 03/29/25
[2025-03-29] MEDS: Lactated Ringers 1,000 ML 150 ML IVCONT (18:39)
[2025-03-29 18:46] LABS: Appearance Urine Clear; Glucose Urine UA Negative (Negative); PH 5.5 (5.0-9.0); Specific Gravity - Urine 1.020 (1.005-1.025)
[2025-03-30] VITALS (7 sets, daily range): BP systolic 96–140; BP diastolic 54–65; PULSE 69–89; RESP 16–18; TEMP 36–36.8; O2SAT 92–98
[2025-03-30] MEDS: Lactated Ringers 1,000 ML 150 ML IVCONT ×4 (00:09→21:19)
--- NOTE | 2025-03-30 00:29 | HO.PM.IMCN ---
History of Present Illness Data of Consult Service Date: 03/30/25 Requesting physician: Ashley Bell Primary Care Provider: Bela Vasquez MD HPI Reason for consult: medical managment Patient is a 69-year-old female past medical history hypertension, hyperlipidemia, GERD, chronic pain management on oxycodone PRN, osteoporosis, depression/anxiety/ mood disorder, , Salomon fundoplication, bowel obstruction, history of colostomy with reversal, hysterectomy full secondary to large fibroid was admitted March 29 via surgery for small bowel obstruction. Conservative management continues. Review of systems and HPI concerning only for report of chest pain the patient reports routinely on a daily basis which patient may attribute to anxiety/grief over the loss of 3 family members in the last 2 years. Patient currently denies any SI or HI. Patient states her chest pain is relieved when she takes clonazepam. EKG on admission noted normal sinus rhythm with left axis deviation, question of LVH. Patient denies any cardiac workup in the past. Patient has not had a stress test or been seen by a tower foreman in the past. Patient is currently chest pain-free and denies any shortness of breath at rest or with exertion. Patient is having midepigastric to left upper quadrant belly pain. Conservative management continues with pain medication. Patient has not required an NG tube placement but is currently NPO on IV fluids. Patient is reporting 8/10 abdominal pain. A 1 time dose of Dilaudid 1 mg IV has been ordered. Patient's last dose was 2-1/2 hours prior. Hemodynamics stable and patient is not experiencing any hypoxia or decreased respiratory rate. Review of Systems Review of Systems: Patient denies any shortness of breath at rest or with exertion. Patient reports chest pain routinely on a daily basis often related to anxiety and grieving with the loss of 3 family members over the last 2 years. Patient currently denies any chest pain. Patient is not having any nausea or vomiting but is reporting a 6/10 abdominal pain. Patient denies any flatulence or belching. Patient denies any issues with voiding or signs of urinary tract infection. Yes all other systems are reviewed and are negative [facility] Medical History Hx of renal calculi Asthma Elevated cholesterol HTN (hypertension) Depression Anxiety Hx of small bowel obstruction GERD (gastroesophageal reflux disease) Cognitive capacity: Alert and orientated x3 Functional capacity: independent ambulation Patient : No Family History Father PVD (peripheral vascular disease) Mother Depression Surgical History S/P cholecystectomy Hx of exploratory laparotomy (11/2016) History of colon surgery Hx of colonoscopy Hx of hysterectomy, total History of Salomon fundoplication Social History Household Members: None Housing: Apartment Do you presently have visiting nurse or other home services: Yes ([employer]) Alcohol intake: never Patient Tobacco Use Status: Never used Tobacco Second Hand Smoke Exposure: No service: No Current occupational status: disabled Ebola Risk: Travel/Contact With Anyone From Affected Area/s: No Has Patient Experienced Ebola Symptoms: No Meds Allergies Allergy/AdvReac Type Severity Reaction Status Date / Time amlodipine Allergy Mild Unknown Verified 03/29/25 13:34 carvedilol Allergy Mild Unknown Verified 03/29/25 13:34 chlorthalidone Allergy Mild Unknown Verified 03/29/25 13:34 diltiazem Allergy Mild Unknown Verified 03/29/25 13:34 lisinopril Allergy Mild Unknown Verified 03/29/25 13:34 NSAIDS (Non-Steroidal Allergy Mild Unknown Verified 03/29/25 13:34 Anti-Inflamma ibuprofen (From Motrin) Allergy Abdominal Verified 03/29/25 13:34 Pain Active Medications: Current Medications Enoxaparin Sodium (Enoxaparin Sodium 40 Mg/0.4 Ml Syringe) 40 mg SUBCUT Q24H JORDAN Last Admin: 03/29/25 18:40 Dose: 40 mg Hydromorphone HCl (Hydromorphone Hcl 1 Mg/Ml Syringe) 1 mg IVPUSH Q4H PRN; Protocol PRN Reason: Pain, Severe (Pain Scale 7-10) Last Admin: 03/29/25 21:02 Dose: 1 mg Hydromorphone HCl (Hydromorphone Hcl 2 Mg/Ml Vial) 1.5 mg IVPUSH Q4H PRN; Protocol PRN Reason: Pain, Moderate(Pain Scale 4-6) Last Admin: 03/29/25 22:35 Dose: 1.5 mg Lactated Ringer's (Lr) 1,000 mls @ 150 mls/hr IVCONT .Q6H40M [facility] Last Admin: 03/30/25 00:09 Dose: 150 mls/hr Sodium Chloride (0.9 % Sodium Chloride Flush 3 Ml Syringe) 3 ml IVFLUSH QSHIFT [facility] Last Admin: 03/30/25 00:00 Dose: Not Given Home Medications ?Medication ?Instructions ?Recorded ?Confirmed ?Last Taken ?Type atorvastatin 40 mg tablet 1 tab PO BEDTIME 07/14/20 05/02/24 03/27/24 History clonazepam 1 mg tablet 1 tab PO BID PRN Anxiety 07/14/20 05/02/24 03/27/24 History escitalopram oxalate 10 mg tablet 1 tab PO DAILY 07/14/20 05/02/24 03/27/24 History omeprazole 20 mg capsule,delayed 1 cap PO BID@0630,1630 07/14/20 05/02/24 03/27/24 History release oxycodone 10 mg tablet,crush 1 tab PO BID 07/14/20 05/02/24 03/27/24 History resistant,extended release 12 hr (OxyContin) oxycodone 5 mg tablet 1 tab PO Q12H PRN pain 07/14/20 05/02/24 03/27/24 History risperidone 0.5 mg tablet 1 tab PO BID 07/14/20 05/02/24 03/27/24 History bupropion HCl 150 mg 24 hr tablet, 150 mg PO DAILY 12/31/21 05/02/24 03/27/24 History extended release cholecalciferol (vitamin D3) 25 1 tab PO DAILY 12/31/21 05/02/24 03/27/24 History mcg (1,000 unit) tablet nifedipine 60 mg tablet,extended 1 tab PO BEDTIME 12/31/21 05/02/24 03/27/24 History release 24 hr quetiapine 400 mg tablet 1 tab PO BEDTIME 12/31/21 05/02/24 03/27/24 History bisacodyl 5 mg tablet 5 mg PO DAILY 03/28/24 05/02/24 03/27/24 History albuterol sulfate 90 mcg/actuation inhalation 04/30/24 05/02/24 Unknown History aerosol inhaler alendronate 70 mg tablet 70 mg PO QWEEK 03/29/25 Unknown History Physical Exam Vital Signs and Narrative: Vital Signs: Last Vital Signs Temp 98.8 F 03/29/25 23:20 Pulse 90 03/29/25 23:20 Resp 16 03/29/25 23:20 BP 134/66 03/29/25 23:20 Pulse Ox 97 03/29/25 23:20 O2 Del Method Room Air 03/29/25 23:20 O2 Flow Rate 2 03/29/25 17:38 BMI result Body Mass Index 36.8 Alert and orientated X3, able to give good history. Neuro: CN II-X11 intact, no deficits, visual acuity intact EYES: PERRLA, EOM intact, sclerae nonicteric, conjunctiva pink ENT: hearing intact, no issues with swallowing, uvula midline, lips moist, nares patent no epistaxis Cardiac: S1 S2 RRR, no murmur, no JVD, no edema in Lower ext Pulmonary: lungs clear to auscultation B Abdominal: BS hypoactive throughout, tenderness with palpation midepigastric to left upper quadrant MSK: strength 5/5 upper and lower extremities : no CVA tenderness no bladder distension Extremities: no edema in lower extremities, PT and DP pulses palpable +2 Psych: mood stable, judgement and insight good Skin: Abdominal incision completely healed, otherwise intact and no report of open wounds Results Labs 03/29/25 13:40 03/29/25 13:40 Labs: Laboratory Results - last 24 hr 03/29/25 03/29/25 03/29/25 13:40 16:26 18:37 MCV 86.5 MCH 28.6 MCHC 33.1 RDW 13.2 Plt Count 344 MPV 9.2 L Immature Gran % (Auto) 0.3 Neut % (Auto) 83.3 H Lymph % (Auto) 10.8 L [place] % (Auto) 4.7 Eos % (Auto) 0.7 Baso % (Auto) 0.2 Lymph # (Auto) 1.4 [place] # (Auto) 0.6 Eos # (Auto) 0.1 Baso # (Auto) 0.0 Abs Immat Gran (auto) 0.04 H Absolute Neuts (auto) 10.8 H Absolute Nucleated RBC 0.000 Nucleated RBC % (auto) 0.0 Anion Gap 16 Estim Creat Clear Calc 45.1 Estimated GFR 43 Random Glucose 99 Lactic Acid 1.2 Calcium 10.0 D Magnesium 1.8 Total Bilirubin 0.4 AST 19 ALT 8 Alkaline Phosphatase 98 Total Protein 7.4 Albumin 4.4 Lipase 7 L Urine Color Yellow Urine Appearance Clear Urine pH 5.5 Ur Specific [place] 1.020 Urine Protein Negative Urine Glucose (UA) Negative Urine Ketones Negative Urine Blood Negative Urine Nitrite Negative Ur Leukocyte Esterase Negative Urine RBC 0-2 Urine WBC 0-5 Ur Squamous Epith Cells 0-2 Urine Bacteria None Seen Hyaline Casts 0-2 ECG Attestation: I personally reviewed and interpreted this ECG as follows: (Normal sinus rhythm with left axis deviation) Prior ECG tracings: available for review Imaging Radiologist's Impressions: CT ABD IMPRESSION: 1. There has been no interval worsening in the degree of small-bowel distention, but more small bowel loops are no dilated including mid and distal small bowel to the level of the terminal ileum. Findings may represent partial or developing distal small bowel obstruction. There is now edema in the bowel mesentery and minimal fluid in the bowel mesentery. No pneumatosis or pneumoperitoneum. Clinical correlation and continued follow-up recommended. 2. Additional stable findings as described. Assessment and Plan (1) HTN (hypertension): Status: Acute Plan Patient is a 69-year-old female past medical history hypertension, hyperlipidemia, GERD, chronic pain management on oxycodone PRN, osteoporosis, depression/anxiety/ mood disorder, , Salomon fundoplication, bowel obstruction, history of colostomy with reversal, hysterectomy full secondary to large fibroid was admitted by general surgery on March 29 for small bowel obstruction. Medical management consultation ordered and patient was seen and examined. Patient is most concerning complaint was almost daily chest pain with anxiety and the experience of grieving the loss of 3 family members over the last 2 years. SBO -Patient denies use of GLP 1 medication -Patient is on chronic narcotics but only p.r.n. - patient denies issues with chronic constipation and straining -Management per surgery Chest pain -Patient denies any history of cardiac events, stress test, Lexiscan, cardiology consultation -Patient states chest pain is relieved when taking Klonopin -EKG will be rechecked in the a.m. -Troponin for baseline with AM labs, pt is currently chest pain free -BNP will also be checked, if elevated patient will need echo -Lipid panel added for a.m. labs, last checked 01/2024, patient has been on statin therapy -TSH with reflex to T4 also added -Magnesium 1.8, repeat in AM -Telemetry added for further monitoring Hypertension -Blood pressure currently controlled -Can continue nifedipine -Avoid hypotension -Patient currently NPO should follow a cardiac, low-salt diet once able to eat History of asthma -PRN albuterol nebs ordered -Patient only uses as needed albuterol inhaler at home, has not required daily use -Patient deferred need for Flonase -Patient does not use oxygen at home Hyperlipidemia -Patient can continue statin once able to take oral medications -Lipid panel ordered for AM noting report of chest pain above Depression/anxiety -Patient deals with daily anxiety and depression but denies any SI or HI -QTC on EKG is within normal limits -Patient can resume her bupropion, clonazepam, escitalopram along with quetiapine and risperidone once able to take oral medication -Recommend Valium p.r.n. IV 5 mg q.4 hours as needed for anxiety -Patient does have psychiatric care in the community GERD -Protonix IV, then omeprazole p.o. once able to tolerate p.o. medications Osteoporosis -Recent bone scan confirms osteoporosis -Treatment per PCP, patient has been on alendronate in the past DVT prophylaxis: Per surgery Hospitalist will follow regarding need for repeat EKG and labs. Further recommendations as needed. We appreciate this consultation.
[2025-03-30 06:10] LABS: MANUAL DIFF FLAG NO
--- NOTE | 2025-03-30 06:20 | PC.NURSE ---
Pt arrived from the ED at 2043 per stretcher to rm 363, pt by then c/o epig pain 06/11, admission done by charge and Dilaudid PRN was given also, pt is alert and oriented, also requesting her sheduled Seroquel 400 mg po and Klonopin 1 mg po, Dr. Pagan was updated, Dr. Bell came to see pt and hour after arrival, still c/o epig pain, Dilaudid increased to1.5 mg Iv q 4h, Dr. Pagan okayed another dose of Dilaudid and Klonopin 1 mg po also was ordered, pt claimed short term effect of pain med, and hour later c/o epig pain again, Mary Lou, VENETIAN BLIND TAPE CUTTER came to see the pt , pt now c/o epig pain and radiating upward to mid chest which is reproducible,EKG ordered , tracing forwarded to Dr. Pagan, and pt was put on tele , SR at 75, tylenol IV given, wit h no effect, Seroquel ordered and given, another Dilaudid 1 mg IV once given, slept after, maintained on NPO except meds and ice chips.
[2025-03-30 06:23] LABS: Hematocrit 33.1 % (37.0-47.0); Hemoglobin 10.6 g/dl (12.0-16.0); Imm Gran Abs Auto 0.03 X10*3/uL (0.00-0.03); Imm Gran Pct Auto 0.3 % (0.0-0.4); Lymphocytes Absolute Auto 1.6 X10*3/uL (1.2-4.9); Mean Corpuscular HGB Conc 32.0 g/dl (31.0-35.0); Mean Corpuscular Hemoglobin 28.1 pg (27.0-33.0); Mean Corpuscular Volume 87.8 fL (80.0-98.0); NRBC Abs Auto 0.000 X10*3/uL (0.0-0.012); NRBC Pct Auto 0.0 /100WBC (0.0-0.2); Platelet Count 267 X10*3/uL (160-400); Red Blood Count 3.77 X10*6/uL (4.20-5.50); White Blood Count 9.9 X10*3/uL (4.8-10.8)
[2025-03-30 06:32] LABS: Magnesium 1.7 mg/dL (1.6-2.6)
[2025-03-30 06:33] LABS: Anion Gap 9 (12-20); Blood Urea Nitrogen 13 mg/dL (9-16); Calcium 8.4 mg/dL (8.4-10.2); Carbon Dioxide 28 mmol/L (22-29); Chloride 109 mmol/L (96-108); Cholesterol 169 mg/dL (<200); Creatinine Clr Calc Pharmacy 47.3; Estimated Glomerular Filt Rate 47; HDL Cholesterol 49 mg/dL (>40); Potassium 4.4 mmol/L (3.3-5.1); Sodium 142 mmol/L (135-145); Triglycerides 140 mg/dL (<150)
[2025-03-30 06:38] LABS: B Type Natriuretic Peptide 37 pg/mL (<100)
[2025-03-30 06:42] LABS: Troponin-I High Sensitivity 6.6 ng/L (<3.5-17.0)
--- NOTE | 2025-03-30 08:00 | ECG_ITS ---
Test Reason : chest pain intermittently Blood Pressure : */* mmHG Vent. Rate : 73 BPM Atrial Rate : 73 BPM P-R Int : 152 ms QRS Dur : 82 ms QT Int : 390 ms P-R-T Axes : 12 -46 9 degrees QTcB Int : 429 ms Normal sinus rhythm Left anterior fascicular block Minimal voltage criteria for LVH, may be normal variant ( R in aVL ) Possible Anterior infarct (cited on or before 29-Mar-2025) Abnormal ECG When compared with ECG of 29-Mar-2025 16:58, No significant change was found Referred By: Joyce Maya Electronically Signed By: BELKIS CHI
--- NOTE | 2025-03-30 10:14 | MHC.CM.PN ---
IMM delivered. Patient lives in an apartment alone. Uses walker PRN when in community. Has a daily SURVEY RESEARCH ASSOCIATE to assist w/ dressing, hygiene, shopping, cooking and cleaning - ~35 AM hrs/wk & ~14 PM hrs/wk. PCP Bela Vasquez MD Reports she has an HCP listing her sister, Ashlee, as HCA. Copy requested. DP: Goal is home to resume SURVEY RESEARCH ASSOCIATE services. Feels she may need [facility] and prefers [facility]. Referral sent to follow. May need assist w/ trasport. CM will continue to follow.
--- NOTE | 2025-03-30 10:38 | PHA.MEDREC ---
Addendum entered by Kandi Lemons RPh 03/30/25 10:50: [facility] PRN anxiety Original Note: Pharmacy Consult ? Medication Reconciliation Pharmacy has completed the medication reconciliation. Spoke with pt and pt confirmed her medications, but was a poor historian with the Alendronate and Omeprazole and how she takes her medications and said to call her LAUNDRY OR [employer] CLEANERS COUNTER CLERK on those; I called and spoke with pt Alejandrina DWYER (in pt profile as 'other relationship') and she was able to confirm all the pt medications (confirming the pt takes Alendronate 70mg once a week on Sundays and takes the Omeprazole 20mg cap BID). LAUNDRY OR [employer] CLEANERS COUNTER CLERK confirmed pt Bisacodyl and states she takes 5-10mg q3d PRN constipation and doesn't remember the last time the pt used it at this time.
--- NOTE | 2025-03-30 10:41 | PC.NURSE ---
Pt reporting 8/10 midepigastric abd pain, pt received 1.5 mg prn dilaudid at approx 0800 this morning, at 10:08 MD Bell made aware via [place] text that pt continues to have severe abd pain, per MD Bell okay to give additional 1 mg prn dilaudid. Medication administered, pending effectiveness.
[2025-03-30] MEDS: buPROPion HCl XL 150 MG TAB.ER.24H PO (11:49)
--- NOTE | 2025-03-30 12:00 | HO.PM.IMPN ---
Subjective Subjective Date of Service: 03/30/25 Interval History: seen and examined this morning follow up for medical consultation, SBO reporting anxiety, requesting baseline home medication reporting abdominal pain. no BM, but passing gas Review of Systems Review of Systems: Yes all other systems are reviewed and are negative Constitutional Constitutional: Denies chills and Denies fever(s) Cardiovascular Cardiovascular: Denies chest pain and Denies dyspnea Respiratory Respiratory: Denies cough and Denies dyspnea Gastrointestinal Gastrointestinal: Reports abdominal pain Physical Exam Vital Signs: Vital Signs: Last Vital Signs Temp 97.1 F 03/30/25 11:23 Pulse 75 03/30/25 11:23 Resp 16 03/30/25 11:23 BP 118/61 03/30/25 11:23 Pulse Ox 98 03/30/25 11:23 O2 Del Method Room Air 03/30/25 11:23 O2 Flow Rate 2 03/30/25 07:25 BMI result Body Mass Index 36.8 Const: General: cooperative, alert and awake Nutritional Appearance: obese Orientation/consciousness: patient oriented x3 Resp: Effort & Inspection: normal respiratory effort, able to speak in complete sentences, no respiratory distress and no use of accessory muscles Cardio: Rate: regular rate GI: Other: generalized pain with light palpation Palpation (GI): Soft to palpation Neuro: General: patient oriented x3, moves all extremities and CN's II-XI intact bilaterally Objective Data Active Medications Albuterol Sulfate (Albuterol Sulfate 90 Mcg 8 Gm Inhaler) 2 puff INHALE RQ4H PRN PRN Reason: Shortness of Breath/Wheezing Bupropion HCl (Bupropion Hcl Xl 150 Mg Tab.Er.24h) 150 mg PO DAILY [facility] Last Admin: 03/30/25 11:49 Dose: 150 mg Documented By: MONICA Clonazepam (Clonazepam 1 Mg Tablet) 1 mg PO BID PRN PRN Reason: Anxiety Last Admin: 03/30/25 11:49 Dose: 1 mg Documented By: MONICA Enoxaparin Sodium (Enoxaparin Sodium 40 Mg/0.4 Ml Syringe) 40 mg SUBCUT Q24H [facility] Last Admin: 03/29/25 18:40 Dose: 40 mg Documented By: TOLU Hydromorphone HCl (Hydromorphone Hcl 1 Mg/Ml Syringe) 1 mg IVPUSH Q4H PRN; Protocol PRN Reason: Pain, Severe (Pain Scale 7-10) Last Admin: 03/30/25 10:32 Dose: 1 mg Documented By: MONICA Hydromorphone HCl (Hydromorphone Hcl 2 Mg/Ml Vial) 1.5 mg IVPUSH Q4H PRN; Protocol PRN Reason: Pain, Severe (Pain Scale 7-10) Last Admin: 03/30/25 08:09 Dose: 1.5 mg Documented By: MONICA Lactated Ringer's (Lr) 1,000 mls @ 150 mls/hr IVCONT .Q6H40M [facility] Last Admin: 03/30/25 08:09 Dose: 150 mls/hr Documented By: MONICA Pantoprazole Sodium (Pantoprazole Sodium 40 Mg/10 Ml Vial) 40 mg IVPUSH DAILY@0630 [facility] Last Admin: 03/30/25 05:50 Dose: 40 mg Documented By: FARIDA Quetiapine Fumarate (Quetiapine Fumarate 400 Mg Tablet) 400 mg PO BEDTIME [facility] Risperidone (Risperidone 0.5 Mg Tablet) 0.5 mg PO BID [facility] Last Admin: 03/30/25 11:49 Dose: 0.5 mg Documented By: MONICA Sodium Chloride (0.9 % Sodium Chloride Flush 3 Ml Syringe) 3 ml IVFLUSH QSHIFT [facility] Last Admin: 03/30/25 08:31 Dose: Not Given Documented By: MONICA Non-Admin Reason: IV Running Labs 03/30/25 05:56 03/30/25 05:57 Labs: Laboratory Results - last 24 hr 03/29/25 03/29/25 03/29/25 13:40 16:26 18:37 MCV 86.5 MCH 28.6 MCHC 33.1 RDW 13.2 Plt Count 344 MPV 9.2 L Immature Gran % (Auto) 0.3 Neut % (Auto) 83.3 H Lymph % (Auto) 10.8 L [place] % (Auto) 4.7 Eos % (Auto) 0.7 Baso % (Auto) 0.2 Lymph # (Auto) 1.4 [place] # (Auto) 0.6 Eos # (Auto) 0.1 Baso # (Auto) 0.0 Abs Immat Gran (auto) 0.04 H Absolute Neuts (auto) 10.8 H Absolute Nucleated RBC 0.000 Nucleated RBC % (auto) 0.0 Anion Gap 16 Estim Creat Clear Calc 45.1 Estimated GFR 43 Random Glucose 99 Lactic Acid 1.2 Calcium 10.0 D Magnesium 1.8 Total Bilirubin 0.4 AST 19 ALT 8 Alkaline Phosphatase 98 Troponin I High Sens B-Natriuretic Peptide Total Protein 7.4 Albumin 4.4 Triglycerides Cholesterol LDL Cholesterol, Calc HDL Cholesterol Lipase 7 L TSH Urine Color Yellow Urine Appearance Clear Urine pH 5.5 Ur Specific [place] 1.020 Urine Protein Negative Urine Glucose (UA) Negative Urine Ketones Negative Urine Blood Negative Urine Nitrite Negative Ur Leukocyte Esterase Negative Urine RBC 0-2 Urine WBC 0-5 Ur Squamous Epith Cells 0-2 Urine Bacteria None Seen Hyaline Casts 0-2 03/30/25 03/30/25 05:56 05:57 MCV 87.8 MCH 28.1 MCHC 32.0 RDW 13.5 Plt Count 267 MPV 9.5 Immature Gran % (Auto) 0.3 Neut % (Auto) 74.6 H Lymph % (Auto) 15.9 L [place] % (Auto) 7.2 Eos % (Auto) 1.9 Baso % (Auto) 0.1 Lymph # (Auto) 1.6 [place] # (Auto) 0.7 Eos # (Auto) 0.2 Baso # (Auto) 0.0 Abs Immat Gran (auto) 0.03 Absolute Neuts (auto) 7.4 Absolute Nucleated RBC 0.000 Nucleated RBC % (auto) 0.0 Anion Gap 9 L Estim Creat Clear Calc 47.3 Estimated GFR 47 Random Glucose 104 Lactic Acid Calcium 8.4 D Magnesium 1.7 Total Bilirubin AST ALT Alkaline Phosphatase Troponin I High Sens 6.6 B-Natriuretic Peptide 37 Total Protein Albumin Triglycerides 140 Cholesterol 169 LDL Cholesterol, Calc 92 HDL Cholesterol 49 Lipase TSH 1.20 Urine Color Urine Appearance Urine pH Ur Specific [place] Urine Protein Urine Glucose (UA) Urine Ketones Urine Blood Urine Nitrite Ur Leukocyte Esterase Urine RBC Urine WBC Ur Squamous Epith Cells Urine Bacteria Hyaline Casts Assessment and Plan (1) Small bowel obstruction: Status: Acute Plan Patient is a 69-year-old female past medical history hypertension, hyperlipidemia, GERD, chronic pain management on oxycodone PRN, osteoporosis, depression/anxiety/ mood disorder, , Salomon fundoplication, bowel obstruction, history of colostomy with reversal, hysterectomy full secondary to large fibroid was admitted by general surgery on March 29 for small bowel obstruction. Medical management consultation ordered and patient was seen and examined. Patient is most concerning complaint was almost daily chest pain with anxiety and the experience of grieving the loss of 3 family members over the last 2 years. SBO currently NPO Management per surgery, conservative management planned at this time Chest pain chest pain is relieved when taking Klonopin troponin, BNP negative no cp at this time Hypertension BP on soft side hold baseline nifedipine History of asthma PRN albuterol nebs ordered Hyperlipidemia hold statin for now, can be resumed upon d/c Depression/anxiety will resume baseline meds GERD Protonix IV, then omeprazole p.o. once able to tolerate p.o. medications DVT prophylaxis: Per surgery Thank you to allow us to participate in the care of this patient. we will follow along with you Quality Stroke Does the patient have a stroke diagnosis?: No VTE Prior VTE?: No VTE Risk Level:: Surgical - low VTE Device Contraindication: N/A - Device Ordered VTE Drug Contraindication: N/A - Med Ordered
--- NOTE | 2025-03-30 12:34 | PM.PNGS ---
Subjective Subjective Date of Service: 03/30/25 Interval history: Patient is complaining about pain wanting more Dilaudid. She is passing gas no nausea vomiting. No bowel movement as yet. Physical Exam Vital Signs: Vital Signs: Last Vital Signs Temp 97.1 F 03/30/25 11:23 Pulse 75 03/30/25 11:23 Resp 16 03/30/25 11:23 BP 118/61 03/30/25 11:23 Pulse Ox 98 03/30/25 11:23 O2 Del Method Room Air 03/30/25 11:23 O2 Flow Rate 2 03/30/25 07:25 BMI result Body Mass Index 36.8 Const: General: cooperative, healthy appearing and comfortable GI: Other: Abdomen is soft nondistended there is active bowel sounds mild diffuse tenderness. No guarding no rebound no peritoneal signs Objective Data Active Medications Albuterol Sulfate (Albuterol Sulfate 90 Mcg 8 Gm Inhaler) 2 puff INHALE RQ4H PRN PRN Reason: Shortness of Breath/Wheezing Bupropion HCl (Bupropion Hcl Xl 150 Mg Tab.Er.24h) 150 mg PO DAILY [facility] Last Admin: 03/30/25 11:49 Dose: 150 mg Documented By: MONICA Clonazepam (Clonazepam 1 Mg Tablet) 1 mg PO BID PRN PRN Reason: Anxiety Last Admin: 03/30/25 11:49 Dose: 1 mg Documented By: MONICA Enoxaparin Sodium (Enoxaparin Sodium 40 Mg/0.4 Ml Syringe) 40 mg SUBCUT Q24H [facility] Last Admin: 03/29/25 18:40 Dose: 40 mg Documented By: TOLU Hydromorphone HCl (Hydromorphone Hcl 1 Mg/Ml Syringe) 1 mg IVPUSH Q4H PRN; Protocol PRN Reason: Pain, Moderate(Pain Scale 4-6) Last Admin: 03/30/25 10:32 Dose: 1 mg Documented By: MONICA Hydromorphone HCl (Hydromorphone Hcl 2 Mg/Ml Vial) 1.5 mg IVPUSH Q4H PRN; Protocol PRN Reason: Pain, Severe (Pain Scale 7-10) Last Admin: 03/30/25 08:09 Dose: 1.5 mg Documented By: MONICA Lactated Ringer's (Lr) 1,000 mls @ 150 mls/hr IVCONT .Q6H40M [facility] Last Admin: 03/30/25 08:09 Dose: 150 mls/hr Documented By: MONICA Pantoprazole Sodium (Pantoprazole Sodium 40 Mg/10 Ml Vial) 40 mg IVPUSH DAILY@0630 [facility] Last Admin: 03/30/25 05:50 Dose: 40 mg Documented By: CASTALANNA Quetiapine Fumarate (Quetiapine Fumarate 400 Mg Tablet) 400 mg PO BEDTIME [facility] Risperidone (Risperidone 0.5 Mg Tablet) 0.5 mg PO BID [facility] Last Admin: 03/30/25 11:49 Dose: 0.5 mg Documented By: MONICA Sodium Chloride (0.9 % Sodium Chloride Flush 3 Ml Syringe) 3 ml IVFLUSH QSHIFT [facility] Last Admin: 03/30/25 08:31 Dose: Not Given Documented By: MONICA Non-Admin Reason: IV Running Labs 03/30/25 05:56 03/30/25 05:57 Labs: Laboratory Results - last 24 hr 03/29/25 03/29/25 03/29/25 13:40 16:26 18:37 MCV 86.5 MCH 28.6 MCHC 33.1 RDW 13.2 Plt Count 344 MPV 9.2 L Immature Gran % (Auto) 0.3 Neut % (Auto) 83.3 H Lymph % (Auto) 10.8 L Rains % (Auto) 4.7 Eos % (Auto) 0.7 Baso % (Auto) 0.2 Lymph # (Auto) 1.4 Rains # (Auto) 0.6 Eos # (Auto) 0.1 Baso # (Auto) 0.0 Abs Immat Gran (auto) 0.04 H Absolute Neuts (auto) 10.8 H Absolute Nucleated RBC 0.000 Nucleated RBC % (auto) 0.0 Anion Gap 16 Estim Creat Clear Calc 45.1 Estimated GFR 43 Random Glucose 99 Lactic Acid 1.2 Calcium 10.0 D Magnesium 1.8 Total Bilirubin 0.4 AST 19 ALT 8 Alkaline Phosphatase 98 Troponin I High Sens B-Natriuretic Peptide Total Protein 7.4 Albumin 4.4 Triglycerides Cholesterol LDL Cholesterol, Calc HDL Cholesterol Lipase 7 L TSH Urine Color Yellow Urine Appearance Clear Urine pH 5.5 Ur Specific [place] 1.020 Urine Protein Negative Urine Glucose (UA) Negative Urine Ketones Negative Urine Blood Negative Urine Nitrite Negative Ur Leukocyte Esterase Negative Urine RBC 0-2 Urine WBC 0-5 Ur Squamous Epith Cells 0-2 Urine Bacteria None Seen Hyaline Casts 0-2 03/30/25 03/30/25 05:56 05:57 MCV 87.8 MCH 28.1 MCHC 32.0 RDW 13.5 Plt Count 267 MPV 9.5 Immature Gran % (Auto) 0.3 Neut % (Auto) 74.6 H Lymph % (Auto) 15.9 L Rains % (Auto) 7.2 Eos % (Auto) 1.9 Baso % (Auto) 0.1 Lymph # (Auto) 1.6 Rains # (Auto) 0.7 Eos # (Auto) 0.2 Baso # (Auto) 0.0 Abs Immat Gran (auto) 0.03 Absolute Neuts (auto) 7.4 Absolute Nucleated RBC 0.000 Nucleated RBC % (auto) 0.0 Anion Gap 9 L Estim Creat Clear Calc 47.3 Estimated GFR 47 Random Glucose 104 Lactic Acid Calcium 8.4 D Magnesium 1.7 Total Bilirubin AST ALT Alkaline Phosphatase Troponin I High Sens 6.6 B-Natriuretic Peptide 37 Total Protein Albumin Triglycerides 140 Cholesterol 169 LDL Cholesterol, Calc 92 HDL Cholesterol 49 Lipase TSH 1.20 Urine Color Urine Appearance Urine pH Ur Specific [place] Urine Protein Urine Glucose (UA) Urine Ketones Urine Blood Urine Nitrite Ur Leukocyte Esterase Urine RBC Urine WBC Ur Squamous Epith Cells Urine Bacteria Hyaline Casts Procedures Date of Service Date of Service: 03/30/25 Progress Note: A&P Assessment and plan (1) Small bowel obstruction: Status: Acute Plan 69-year-old female with partial small bowel obstruction most likely will improve with conservative care continue with NPO IV fluids holding off on NG tube ambulation IV pain meds Time Spent With Patient Time: Total time managing care of this patient today ____ minutes. Quality Stroke Does the patient have a stroke diagnosis?: No VTE Prior VTE?: No VTE Risk Level:: Surgical - low VTE Device Contraindication: N/A - Device Ordered VTE Drug Contraindication: N/A - Med Ordered
--- NOTE | 2025-03-30 13:26 | PC.NURSE ---
At 11:32 telegraph editor reached out via [employer] informing pt's HR was briefly tachycardic at 123, then back to 70s NSR. Pt was ambulating at this time w/ [employer], pt reported dizziness, but was able to ambulate back to bed without issues. OLIVIA Moore aware. No new orders at this time. All safety measures in place.
--- NOTE | 2025-03-30 18:28 | PC.NURSE ---
17:45 Pt endorsing severe abd pain, OLIVIA Moore made aware. Extensive pain med education and options discussed with pt and reiterated multiple times throughout shift. Pt not due for dilaudid until 18:37. Per OLIVIA Moore, okay to give prn dilaudid early. No new orders at this time.
--- NOTE | 2025-03-30 18:48 | PC.NURSE ---
Addendum entered by Dilia Cruz RN 03/30/25 19:14: Pt notified that a camera will be placed in room for safety. Original Note: Pt reports to this RN at 18:46 that pt was ambulating to bathroom earlier in the shift with [employer]PP[employer], at this time pt experienced an episode of dizziness, which was originally reported at that time. Pt now stating that she leaned up against the door and hit her head. Pt was accompanied by staff at this time and no head strike was witness, Pt is denying injures and states i am fine now . OLIVIA Moore made aware, no new orders at this time, vital signs stable.
[2025-03-31] MEDS: Lactated Ringers 1,000 ML 150 ML IVCONT ×3 (02:30→17:16)
[2025-03-31 03:29] VITALS: PULSE 92
[2025-03-31 07:00] VITALS: BP 133/63; PULSE 90; RESP 16; TEMP 36.9; O2SAT 90
[2025-03-31] MEDS: 0.9 % Sodium Chloride Flush 3 ML SYRINGE IVFLUSH (07:34)
--- NOTE | 2025-03-31 08:07 | P.PNGS_ITS ---
Subjective Subjective Date of Service: 03/31/25 <Ana Bal PA-C - Last Filed: 03/31/25 08:11> 03/31/25 <Darrian Naranjo MD - Last Filed: 03/31/25 08:17> Interval history: Reports no significant improvement in pain. Remains in epigastric region and extending into b/l lower quadrants. Dilaudid initially relieves pain but wears off quickly. Reports nausea overnight. C/o bloating. was able to ambulate yesterday. Denies flatus. <Ana Bal PA-C - Last Filed: 03/31/25 08:11> Physical Exam 2 Vital Signs: Vital Signs: Last Vital Signs Temp 98.5 F 03/31/25 07:00 Pulse 90 03/31/25 07:00 Resp 16 03/31/25 07:00 BP 133/63 03/31/25 07:00 Pulse Ox 90 L 03/31/25 07:00 O2 Del Method Room Air 03/31/25 07:00 O2 Flow Rate 2 03/30/25 07:25 BMI result Body Mass Index 36.8 <Ana Bal PA-C - Last Filed: 03/31/25 08:11> Const: General: comfortable, no acute distress and alert <Ana Bal PA-C - Last Filed: 03/31/25 08:11> Orientation/consciousness: patient oriented x3 <Ana Bal PA-C - Last Filed: 03/31/25 08:11> GI: Other: abd soft distended and tympanitic moderately tender at epigastric region and mild lower abdominal tenderness <Ana Bal PA-C - Last Filed: 03/31/25 08:11> Skin: General skin exam: no rashes or lesions noted <KYLIE Castillo Last Filed: 03/31/25 08:11> Neuro: General: patient oriented x3 and moves all extremities <KYLIE Castillo Last Filed: 03/31/25 08:11> Objective Data Active Medications Albuterol Sulfate (Albuterol Sulfate 90 Mcg 8 Gm Inhaler) 2 puff INHALE RQ4H PRN PRN Reason: Shortness of Breath/Wheezing Bupropion HCl (Bupropion Hcl Xl 150 Mg Tab.Er.24h) 150 mg PO DAILY [facility] Last Admin: 03/30/25 11:49 Dose: 150 mg Documented By: MONICA Clonazepam (Clonazepam 1 Mg Tablet) 1 mg PO BID PRN PRN Reason: Anxiety Last Admin: 03/31/25 07:33 Dose: 1 mg Documented By: DEANGELO Enoxaparin Sodium (Enoxaparin Sodium 40 Mg/0.4 Ml Syringe) 40 mg SUBCUT Q24H [facility] Last Admin: 03/30/25 18:02 Dose: 40 mg Documented By: MONICA Hydromorphone HCl (Hydromorphone Hcl 1 Mg/Ml Syringe) 1 mg IVPUSH Q4H PRN; Protocol PRN Reason: Pain, Moderate(Pain Scale 4-6) Last Admin: 03/30/25 18:32 Dose: 1 mg Documented By: HE Hydromorphone HCl (Hydromorphone Hcl 2 Mg/Ml Vial) 1.5 mg IVPUSH Q4H PRN; Protocol PRN Reason: Pain, Severe (Pain Scale 7-10) Last Admin: 03/31/25 06:22 Dose: 1.5 mg Documented By: KATHRYN Lactated Ringer's (Lr) 1,000 mls @ 150 mls/hr IVCONT .Q6H40M [facility] Last Admin: 03/31/25 02:30 Dose: 150 mls/hr Documented By: KATHRYN Acetaminophen (Ofirmev) 1,000 mg in 100 mls @ 400 mls/hr IV Q6H [facility] Pantoprazole Sodium (Pantoprazole Sodium 40 Mg/10 Ml Vial) 40 mg IVPUSH DAILY@0630 [facility] Last Admin: 03/31/25 06:22 Dose: 40 mg Documented By: KATHRYN Quetiapine Fumarate (Quetiapine Fumarate 400 Mg Tablet) 400 mg PO BEDTIME [facility] Last Admin: 03/30/25 21:20 Dose: 400 mg Documented By: KATHRYN Risperidone (Risperidone 0.5 Mg Tablet) 0.5 mg PO BID [facility] Last Admin: 03/30/25 21:20 Dose: 0.5 mg Documented By: KATHRYN Sodium Chloride (0.9 % Sodium Chloride Flush 3 Ml Syringe) 3 ml IVFLUSH QSHIFT [facility] Last Admin: 03/31/25 07:34 Dose: 3 ml Documented By: DEANGELO <Ana Bal PA-C - Last Filed: 03/31/25 08:11> Labs CBC & Chem 7: 03/30/25 05:56 03/30/25 05:57 <Ana Bal PA-C - Last Filed: 03/31/25 08:11> Procedures Date of Service Date of Service: 03/31/25 <KYLIE Castillo Last Filed: 03/31/25 08:11> 03/31/25 <Darrian Naranjo MD - Last Filed: 03/31/25 08:17> Progress Note: A&P Assessment and plan (1) Small bowel obstruction: Status: Acute <KYLIE Castillo Last Filed: 03/31/25 08:11> Assessment and Plan: No significant improvement in pain, remains distended and tympanitic on exam. Had CT scan with oral contrast on admission, will obtain f/u AXR to assess where contrast is. Keep NPO, on IVF. Ofirmev added for pain control. Cont OOB/ambulation to promote GI function. <Ana Bal PA-C - Last Filed: 03/31/25 08:11> No significant improvement in pain, remains distended and tympanitic on exam. Had CT scan with oral contrast on admission, will obtain f/u AXR to assess where contrast is. Keep NPO, on IVF. Ofirmev added for pain control. Cont OOB/ambulation to promote GI function. Patient seen and examined and I agree with the above assessment and plan. Patient still tympanitic and distended. CT with oral contrast reviewed. Contrast remains in the proximal small bowel however: Especially the transverse colon is distended. The stomach is minimally distended. Continue bowel rest, IV hydration. Encouraged out of bed and ambulation. Await abdominal x-ray. < Darrian Naranjo MD - Last Filed: 03/31/25 08:17> Time Spent With Patient Time: Total time managing care of this patient today ____ minutes. <KYLIE Castillo Last Filed: 03/31/25 08:11> Quality Stroke Does the patient have a stroke diagnosis?: No <Ana Bal PA-C - Last Filed: 03/31/25 08:11> VTE Prior VTE?: No <Ana Bal PA-C - Last Filed: 03/31/25 08:11> VTE Risk Level:: Surgical - low <Ana Bal PA-C - Last Filed: 03/31/25 08:11> VTE Device Contraindication: N/A - Device Ordered <Ana Bal PA-C - Last Filed: 03/31/25 08:11> VTE Drug Contraindication: N/A - Med Ordered <Ana Bal PA-C - Last Filed: 03/31/25 08:11>
[2025-03-31] MEDS: buPROPion HCl XL 150 MG TAB.ER.24H PO (08:42)
[2025-03-31 12:00] VITALS: BP 145/69; PULSE 86; RESP 18; TEMP 36.7; O2SAT 93
--- NOTE | 2025-03-31 13:40 | P.PNIM_ITS ---
Subjective Subjective Date of Service: 03/31/25 Interval History: Seen and examined this morning Follow-up for more medical consultation, SBO Still reporting abdominal pain denies passing gas today, no BM Constitutional Constitutional: Denies chills and Denies fever(s) Physical Exam 2 Vital Signs: Vital Signs: Last Vital Signs Temp 98.1 F 03/31/25 12:00 Pulse 86 03/31/25 12:00 Resp 18 03/31/25 12:00 BP 145/69 H 03/31/25 12:00 Pulse Ox 93 03/31/25 12:00 O2 Del Method Room Air 03/31/25 12:00 O2 Flow Rate 2 03/30/25 07:25 BMI result Body Mass Index 36.8 Const: General: cooperative, alert and awake Nutritional Appearance: obese Orientation/consciousness: patient oriented x3 Resp: Effort & Inspection: normal respiratory effort, able to speak in complete sentences, no respiratory distress and no use of accessory muscles Cardio: Rate: regular rate GI: Other: generalized pain with light palpation Palpation (GI): Soft to palpation Neuro: General: patient oriented x3, moves all extremities and CN's II-XI intact bilaterally Objective Data Active Medications Albuterol Sulfate (Albuterol Sulfate 90 Mcg 8 Gm Inhaler) 2 puff INHALE RQ4H PRN PRN Reason: Shortness of Breath/Wheezing Bupropion HCl (Bupropion Hcl Xl 150 Mg Tab.Er.24h) 150 mg PO DAILY [facility] Last Admin: 03/31/25 08:42 Dose: 150 mg Documented By: DEANGELO Clonazepam (Clonazepam 1 Mg Tablet) 1 mg PO BID PRN PRN Reason: Anxiety Last Admin: 03/31/25 07:33 Dose: 1 mg Documented By: DEANGELO Enoxaparin Sodium (Enoxaparin Sodium 40 Mg/0.4 Ml Syringe) 40 mg SUBCUT Q24H [facility] Last Admin: 03/30/25 18:02 Dose: 40 mg Documented By: MONICA Hydromorphone HCl (Hydromorphone Hcl 1 Mg/Ml Syringe) 1 mg IVPUSH Q4H PRN; Protocol PRN Reason: Pain, Moderate(Pain Scale 4-6) Last Admin: 03/30/25 18:32 Dose: 1 mg Documented By: HE Hydromorphone HCl (Hydromorphone Hcl 2 Mg/Ml Vial) 1.5 mg IVPUSH Q4H PRN; Protocol PRN Reason: Pain, Severe (Pain Scale 7-10) Last Admin: 03/31/25 10:23 Dose: 1.5 mg Documented By: DEANGELO Lactated Ringer's (Lr) 1,000 mls @ 150 mls/hr IVCONT .Q6H40M [facility] Last Admin: 03/31/25 10:24 Dose: 150 mls/hr Documented By: DEANGELO Acetaminophen (Ofirmev) 1,000 mg in 100 mls @ 400 mls/hr IV Q6H [facility] Last Infusion: 03/31/25 09:59 Dose: Infused Documented By: DEANGELO Pantoprazole Sodium (Pantoprazole Sodium 40 Mg/10 Ml Vial) 40 mg IVPUSH DAILY@0630 [facility] Last Admin: 03/31/25 06:22 Dose: 40 mg Documented By: KATHRYN Quetiapine Fumarate (Quetiapine Fumarate 400 Mg Tablet) 400 mg PO BEDTIME [facility] Last Admin: 03/30/25 21:20 Dose: 400 mg Documented By: KATHRYN Risperidone (Risperidone 0.5 Mg Tablet) 0.5 mg PO BID [facility] Last Admin: 03/31/25 08:41 Dose: 0.5 mg Documented By: DEANGELO Sodium Chloride (0.9 % Sodium Chloride Flush 3 Ml Syringe) 3 ml IVFLUSH QSHIFT [facility] Last Admin: 03/31/25 07:34 Dose: 3 ml Documented By: DEANGELO Labs 03/30/25 05:56 03/30/25 05:57 Assessment and Plan (1) Small bowel obstruction: Status: Acute Plan Patient is a 69-year-old female past medical history hypertension, hyperlipidemia, GERD, chronic pain management on oxycodone PRN, osteoporosis, depression/anxiety/ mood disorder, , Salomon fundoplication, bowel obstruction, history of colostomy with reversal, hysterectomy full secondary to large fibroid was admitted by general surgery on March 29 for small bowel obstruction. Medical management consultation ordered and patient was seen and examined. Patient is most concerning complaint was almost daily chest pain with anxiety and the experience of grieving the loss of 3 family members over the last 2 years. SBO currently NPO Management per surgery, conservative management planned at this time recommend following basic labs, cbc/bnp Chest pain chest pain is relieved when taking Klonopin troponin, BNP negative no cp at this time Hypertension BP on soft side hold baseline nifedipine History of asthma PRN albuterol nebs ordered Hyperlipidemia hold statin for now, can be resumed upon d/c Depression/anxiety will resume baseline meds GERD Protonix IV, then omeprazole p.o. once able to tolerate p.o. medications DVT prophylaxis: Per surgery Thank you to allow us to participate in the care of this patient. we will follow along with you Quality Stroke Does the patient have a stroke diagnosis?: No VTE Prior VTE?: No VTE Risk Level:: Surgical - low VTE Device Contraindication: N/A - Device Ordered VTE Drug Contraindication: N/A - Med Ordered
[2025-03-31 15:04] VITALS: BP 140/67; PULSE 76; RESP 16; TEMP 36.7; O2SAT 91
--- NOTE | 2025-03-31 15:45 | MHC.CM.PN ---
ENR REVIEWED AND PER MD ROUNDS, PT IS NOT YET MEDICALLY CLEARED FOR DC (SBO, CLEAR LIQUIDS) CM WILL CONTINUE TO FOLLOW FOR ANY CHANGE TO DC PLAN/NEEDS.
[2025-03-31 19:54] VITALS: BP 164/76; PULSE 82; RESP 18; TEMP 36.9; O2SAT 94
[2025-03-31] MEDS: oxyCODONE HCl Immed Release 5 MG TABLET PO (21:36)
[2025-03-31 23:27] VITALS: BP 164/73; PULSE 117; RESP 20; TEMP 37.5; O2SAT 93
--- NOTE | 2025-03-31 23:30 | PC.NURSE ---
Addendum entered by Milagro Choi RN 03/31/25 23:34: CXR ordered. Original Note: Pt has become very confused out of no where forgetting where she is, thought she was going home. Vital signs checked, BP:164/73 was just given dilaudid not long ago says 7/10 pain is comfortable for her, Hr: 118, denies Chest pain or SOB, O2: 88% came up with 2L NC too 93%, Oral temp: 99.5. Dr. Enriquez made aware.
[2025-04-01 03:41] VITALS: BP 134/64; PULSE 99; RESP 20; TEMP 37.1; O2SAT 94
[2025-04-01 05:45] LABS: Hematocrit 32.8 % (37.0-47.0); Hemoglobin 10.4 g/dl (12.0-16.0); Mean Corpuscular HGB Conc 31.7 g/dl (31.0-35.0); Mean Corpuscular Hemoglobin 28.0 pg (27.0-33.0); Mean Corpuscular Volume 88.2 fL (80.0-98.0); NRBC Abs Auto 0.000 X10*3/uL (0.0-0.012); NRBC Pct Auto 0.0 /100WBC (0.0-0.2); Platelet Count 260 X10*3/uL (160-400); Red Blood Count 3.72 X10*6/uL (4.20-5.50); White Blood Count 7.5 X10*3/uL (4.8-10.8)
[2025-04-01 06:05] LABS: Anion Gap 14 (12-20); Blood Urea Nitrogen 10 mg/dL (9-16); Calcium 8.8 mg/dL (8.4-10.2); Carbon Dioxide 28 mmol/L (22-29); Chloride 106 mmol/L (96-108); Creatinine Clr Calc Pharmacy 49.4; Estimated Glomerular Filt Rate 49; Potassium 4.3 mmol/L (3.3-5.1); Sodium 144 mmol/L (135-145)
[2025-04-01 06:50] VITALS: BP 123/56; PULSE 85; RESP 16; TEMP 36.6; O2SAT 92
--- NOTE | 2025-04-01 07:38 | P.PNGS_ITS ---
Subjective Subjective Date of Service: 04/01/25 Interval history: Became confused overnight with drop in O2 sat to high 80s. CXR performed. Back to low 90s on RA this morning. She reports some persistent abd pain and bloating but is asking for solid food. She reports she is feeling hungry. Passing flatus but no BM. Physical Exam 2 Vital Signs: Vital Signs: Last Vital Signs Temp 98 F 04/01/25 06:50 Pulse 85 04/01/25 06:50 Resp 16 04/01/25 06:50 BP 123/56 L 04/01/25 06:50 Pulse Ox 92 04/01/25 06:50 O2 Del Method Room Air 04/01/25 06:50 O2 Flow Rate 2 04/01/25 03:41 BMI result Body Mass Index 36.8 Const: General: comfortable, no acute distress and alert O rientation/consciousness: patient oriented x3 GI: Inspection: Yes distended Palpation (GI): Soft to palpation, Tenderness to palpation present (GI) (mild diffuse ) and no guarding Percussion: Yes tympanic to percussion Skin: General skin exam: no rashes or lesions noted Neuro: General: patient oriented x3 and moves all extremities Objective Data Active Medications Albuterol Sulfate (Albuterol Sulfate 90 Mcg 8 Gm Inhaler) 2 puff INHALE RQ4H PRN PRN Reason: Shortness of Breath/Wheezing Bupropion HCl (Bupropion Hcl Xl 150 Mg Tab.Er.24h) 150 mg PO DAILY [facility] Last Admin: 03/31/25 08:42 Dose: 150 mg Documented By: DEANGELO Clonazepam (Clonazepam 1 Mg Tablet) 1 mg PO BID PRN PRN Reason: Anxiety Last Admin: 03/31/25 20:12 Dose: 1 mg Documented By: KIYA Enoxaparin Sodium (Enoxaparin Sodium 40 Mg/0.4 Ml Syringe) 40 mg SUBCUT Q24H [facility] Last Admin: 03/31/25 18:27 Dose: 40 mg Documented By: DEANGELO Hydromorphone HCl (Hydromorphone Hcl 2 Mg/Ml Vial) 1.5 mg IVPUSH Q4H PRN; Protocol PRN Reason: Pain, Severe (Pain Scale 7-10) Last Admin: 04/01/25 06:10 Dose: 1.5 mg Documented By: KIYA Acetaminophen (Ofirmev) 1,000 mg in 100 mls @ 400 mls/hr IV Q6H [facility] Last Infusion: 04/01/25 06:21 Dose: Infused Documented By: KIYA Oxycodone HCl (Oxycodone Hcl Immed Release 5 Mg Tablet) 5 mg PO Q4H PRN PRN Reason: Pain, Moderate(Pain Scale 4-6) Last Admin: 03/31/25 21:36 Dose: 5 mg Documented By: KIYA Comments: per pt request Pantoprazole Sodium (Pantoprazole Sodium 40 Mg/10 Ml Vial) 40 mg IVPUSH DAILY@30 [facility] Last Admin: 04/01/25 06:11 Dose: 40 mg Documented By: KIYA Quetiapine Fumarate (Quetiapine Fumarate 400 Mg Tablet) 400 mg PO BEDTIME [facility] Last Admin: 03/31/25 21:34 Dose: 400 mg Documented By: KIYA Risperidone (Risperidone 0.5 Mg Tablet) 0.5 mg PO BID [facility] Last Admin: 03/31/25 21:35 Dose: 0.5 mg Documented By: KIYA Sodium Chloride (0.9 % Sodium Chloride Flush 3 Ml Syringe) 3 ml IVFLUSH QSHIFT [facility] Last Admin: 03/31/25 23:05 Dose: Not Given Documented By: KIYA Non-Admin Reason: IV Running Labs 04/01/25 05:02 04/01/25 05:02 Labs: Laboratory Results - last 24 hr 04/01/25 05:02 MCV 88.2 MCH 28.0 MCHC 31.7 RDW 13.2 Plt Count 260 MPV 9.8 Absolute Nucleated RBC 0.000 Nucleated RBC % (auto) 0.0 Anion Gap 14 Estim Creat Clear Calc 49.4 Estimated GFR 49 Random Glucose 128 H Calcium 8.8 Procedures Date of Service Date of Service: 04/01/25 Progress Note: A&P Assessment and plan (1) Small bowel obstruction: Status: Acute Plan Admitted with SBO- oral contrast from CT scan on admission in colon on f/u abdominal films yesterday. She is now passing flatus but does remain distended and tympanitic with some persistent pain. Will advance to full liquids today. Encouraged OOB/ambulation and increasing activity to promote GI function. Educated to limit narcotics and reduce dilaudid if possible as it can slow GI transit- also may be contributing to confusion overnight. CXR reviewed- no consolidation but atelectasis. Will order incentive spirometer 10x/hr. AM labs reviewed, no leukocytosis. Time Spent With Patient Time: Total time managing care of this patient today ____ minutes. Quality Stroke Does the patient have a stroke diagnosis?: No VTE Prior VTE?: No VTE Risk Level:: Surgical - low VTE Device Contraindication: N/A - Device Ordered VTE Drug Contraindication: N/A - Med Ordered
[2025-04-01] MEDS: buPROPion HCl XL 150 MG TAB.ER.24H PO (08:01)
[2025-04-01] MEDS: 0.9 % Sodium Chloride Flush 3 ML SYRINGE IVFLUSH ×2 (08:03→15:01)
--- NOTE | 2025-04-01 09:36 | HO.PM.IMPN ---
Subjective Subjective Date of Service: 04/01/25 Interval History: Seen and examined this morning Follow-up for more medical consultation, SBO Still reporting abdominal pain Constitutional Constitutional: Denies chills and Denies fever(s) Physical Exam Vital Signs: Vital Signs: Last Vital Signs Temp 98 F 04/01/25 06:50 Pulse 85 04/01/25 06:50 Resp 16 04/01/25 06:50 BP 123/56 L 04/01/25 06:50 Pulse Ox 92 04/01/25 06:50 O2 Del Method Room Air 04/01/25 06:50 O2 Flow Rate 2 04/01/25 03:41 BMI result Body Mass Index 36.8 Objective Data Active Medications Albuterol Sulfate (Albuterol Sulfate 90 Mcg 8 Gm Inhaler) 2 puff INHALE RQ4H PRN PRN Reason: Shortness of Breath/Wheezing Bupropion HCl (Bupropion Hcl Xl 150 Mg Tab.Er.24h) 150 mg PO DAILY [facility] Last Admin: 04/01/25 08:01 Dose: 150 mg Documented By: DEANGELO Clonazepam (Clonazepam 1 Mg Tablet) 1 mg PO BID PRN PRN Reason: Anxiety Last Admin: 04/01/25 08:01 Dose: 1 mg Documented By: DEANGELO Enoxaparin Sodium (Enoxaparin Sodium 40 Mg/0.4 Ml Syringe) 40 mg SUBCUT Q24H [facility] Last Admin: 03/31/25 18:27 Dose: 40 mg Documented By: DEANGELO Hydromorphone HCl (Hydromorphone Hcl 2 Mg/Ml Vial) 1.5 mg IVPUSH Q4H PRN; Protocol PRN Reason: Pain, Severe (Pain Scale 7-10) Last Admin: 04/01/25 06:10 Dose: 1.5 mg Documented By: KIYA Acetaminophen (Ofirmev) 1,000 mg in 100 mls @ 400 mls/hr IV Q6H [facility] Last Infusion: 04/01/25 08:28 Dose: Infused Documented By: DEANGELO Oxycodone HCl (Oxycodone Hcl Immed Release 5 Mg Tablet) 5 mg PO Q4H PRN PRN Reason: Pain, Moderate(Pain Scale 4-6) Last Admin: 03/31/25 21:36 Dose: 5 mg Documented By: KIYA Comments: per pt request Pantoprazole Sodium (Pantoprazole Sodium 40 Mg/10 Ml Vial) 40 mg IVPUSH DAILY@0630 [facility] Last Admin: 04/01/25 06:11 Dose: 40 mg Documented By: KIYA Quetiapine Fumarate (Quetiapine Fumarate 400 Mg Tablet) 400 mg PO BEDTIME [facility] Last Admin: 03/31/25 21:34 Dose: 400 mg Documented By: KIYA Risperidone (Risperidone 0.5 Mg Tablet) 0.5 mg PO BID [facility] Last Admin: 04/01/25 08:01 Dose: 0.5 mg Documented By: DEANGELO Sodium Chloride (0.9 % Sodium Chloride Flush 3 Ml Syringe) 3 ml IVFLUSH QSHIFT [facility] Last Admin: 04/01/25 08:03 Dose: 3 ml Documented By: LENORAIC Labs 04/01/25 05:02 04/01/25 05:02 Labs: Laboratory Results - last 24 hr 04/01/25 05:02 MCV 88.2 MCH 28.0 MCHC 31.7 RDW 13.2 Plt Count 260 MPV 9.8 Absolute Nucleated RBC 0.000 Nucleated RBC % (auto) 0.0 Anion Gap 14 Estim Creat Clear Calc 49.4 Estimated GFR 49 Random Glucose 128 H Calcium 8.8 Assessment and Plan (1) Small bowel obstruction: Status: Acute Plan Patient is a 69-year-old female past medical history hypertension, hyperlipidemia, GERD, chronic pain management on oxycodone PRN, osteoporosis, depression/anxiety/ mood disorder, , Salomon fundoplication, bowel obstruction, history of colostomy with reversal, hysterectomy full secondary to large fibroid was admitted by general surgery on March 29 for small bowel obstruction. Medical management consultation ordered and patient was seen and examined. Patient is most concerning complaint was almost daily chest pain with anxiety and the experience of grieving the loss of 3 family members over the last 2 years. SBO Diet per surgery Management per surgery, conservative management planned at this time recommend following basic labs, cbc/bnp Chest pain chest pain is relieved when taking Klonopin troponin, BNP negative no cp at this time Hypertension BP on soft side hold baseline nifedipine History of asthma PRN albuterol nebs ordered Hyperlipidemia hold statin for now, can be resumed upon d/c Depression/anxiety will resume baseline meds GERD Protonix IV, then omeprazole p.o. once able to tolerate p.o. medications DVT prophylaxis: Per surgery Thank you to allow us to participate in the care of this patient. we will follow along with you Quality Stroke Does the patient have a stroke diagnosis?: No VTE Prior VTE?: No VTE Risk Level:: Surgical - low VTE Device Contraindication: N/A - Device Ordered VTE Drug Contraindication: N/A - Med Ordered
[2025-04-01] MEDS: oxyCODONE HCl Immed Release 5 MG TABLET PO ×3 (11:08→20:14)
[2025-04-01 12:00] VITALS: BP 142/67; PULSE 75; RESP 18; TEMP 36.6; O2SAT 97
[2025-04-01 15:59] VITALS: BP 156/73; PULSE 79; RESP 18; TEMP 36.3; O2SAT 95
[2025-04-01 19:36] VITALS: BP 149/82; PULSE 85; RESP 18; TEMP 37.1; O2SAT 94
[2025-04-01 23:16] VITALS: BP 120/57; PULSE 82; RESP 18; TEMP 36.9
[2025-04-02 03:28] VITALS: BP 117/56; PULSE 83; RESP 16; TEMP 36.4; O2SAT 95
[2025-04-02] MEDS: oxyCODONE HCl Immed Release 5 MG TABLET PO ×4 (03:29→16:10)
[2025-04-02 07:30] VITALS: BP 156/75; PULSE 94; RESP 16; TEMP 36; O2SAT 98
[2025-04-02] MEDS: buPROPion HCl XL 150 MG TAB.ER.24H PO (07:31)
[2025-04-02] MEDS: 0.9 % Sodium Chloride Flush 3 ML SYRINGE IVFLUSH ×4 (07:31→21:38)
--- NOTE | 2025-04-02 08:08 | PM.PNGS ---
Subjective Subjective Date of Service: 04/02/25 <Ana Bal PA-C - Last Filed: 04/02/25 08:11> 04/02/25 <Darrian Naranjo MD - Last Filed: 04/02/25 11:40> Interval history: Has now had many loose BMs. Tolerating small amount of solid food but continues to c/o pain, waxes and wanes. Now passing more flatus. Was not OOB yesterday due to pain. Using incentive spirometer. <Ana Bal PA-C - Last Filed: 04/02/25 08:11> Physical Exam Vital Signs: Vital Signs: Last Vital Signs Temp 96.8 F 04/02/25 07:30 Pulse 94 04/02/25 07:30 Resp 16 04/02/25 07:30 BP 156/75 H 04/02/25 07:30 Pulse Ox 98 04/02/25 07:30 O2 Del Method Room Air 04/02/25 07:30 O2 Flow Rate 2 04/01/25 03:41 BMI result Body Mass Index 36.8 <Ana Bal PA-C - Last Filed: 04/02/25 08:11> Const: General: comfortable, no acute distress and alert <KYLIE Castillo Last Filed: 04/02/25 08:11> Orientation/consciousness: patient oriented x3 <Ana Bal PA-C - Last Filed: 04/02/25 08:11> Resp: Effort & Inspection: normal respiratory effort <KYLIE Castillo Last Filed: 04/02/25 08:11> GI: Other: remains distended and tympanitic but soft, tenderness seems decreased <Ana Bal PA-C - Last Filed: 04/02/25 08:11> Skin: General skin exam: no rashes or lesions noted <KYILE Castillo Last Filed: 04/02/25 08:11> Neuro: General: patient oriented x3 and moves all extremities <KYLIE Castillo Last Filed: 04/02/25 08:11> Objective Data Active Medications Albuterol Sulfate (Albuterol Sulfate 90 Mcg 8 Gm Inhaler) 2 puff INHALE RQ4H PRN PRN Reason: Shortness of Breath/Wheezing Bupropion HCl (Bupropion Hcl Xl 150 Mg Tab.Er.24h) 150 mg PO DAILY [facility] Last Admin: 04/02/25 07:31 Dose: 150 mg Documented By: CHAZ Clonazepam (Clonazepam 1 Mg Tablet) 1 mg PO BID PRN PRN Reason: Anxiety Last Admin: 04/02/25 07:31 Dose: 1 mg Documented By: CHAZ Enoxaparin Sodium (Enoxaparin Sodium 40 Mg/0.4 Ml Syringe) 40 mg SUBCUT Q24H [facility] Last Admin: 04/01/25 17:50 Dose: 40 mg Documented By: GRAZIC Hydromorphone HCl (Hydromorphone Hcl 2 Mg/Ml Vial) 1 mg IVPUSH Q3H PRN; Protocol PRN Reason: Pain, Severe (Pain Scale 7-10) Acetaminophen (Ofirmev) 1,000 mg in 100 mls @ 400 mls/hr IV Q6H [facility] Last Infusion: 04/02/25 07:48 Dose: Infused Documented By: CHAZ Oxycodone HCl (Oxycodone Hcl Immed Release 5 Mg Tablet) 5 mg PO Q4H PRN PRN Reason: Pain, Moderate(Pain Scale 4-6) Last Admin: 04/02/25 07:31 Dose: 5 mg Documented By: CHAZ Pantoprazole Sodium (Pantoprazole Sodium 40 Mg/10 Ml Vial) 40 mg IVPUSH DAILY@0630 [facility] Last Admin: 04/02/25 05:30 Dose: 40 mg Documented By: CHAZ Quetiapine Fumarate (Quetiapine Fumarate 400 Mg Tablet) 400 mg PO BEDTIME [facility] Last Admin: 04/01/25 20:14 Dose: 400 mg Documented By: KIYA Risperidone (Risperidone 0.5 Mg Tablet) 0.5 mg PO BID [facility] Last Admin: 04/02/25 07:31 Dose: 0.5 mg Documented By: CHAZ Sodium Chloride (0.9 % Sodium Chloride Flush 3 Ml Syringe) 3 ml IVFLUSH QSHIFT [facility] Last Admin: 04/02/25 07:31 Dose: 3 ml Documented By: CHAZ Bal PA-C - Last Filed: 04/02/25 08:11> Labs CBC & Chem 7: 04/01/25 05:02 04/01/25 05:02 <Ana Bal PA-C - Last Filed: 04/02/25 08:11> Procedures Date of Service Date of Service: 04/02/25 <Ana Bal PA-C - Last Filed: 04/02/25 08:11> 04/02/25 <Darrian Naranjo MD - Last Filed: 04/02/25 11:40> Progress Note: A&P Assessment and plan (1) Small bowel obstruction: Status: Acute <Ana Bal PA-C - Last Filed: 04/02/25 08:11> Assessment and Plan: Now with return of GI function but has continued pain, distention. Overall tenderness seems improved on exam, abd soft. Diet as tolerated. Encouraged OOB/ambulation and increasing activity to promote more flatus. Will reassess later in the day. <Ana Bal PA-C - Last Filed: 04/02/25 08:11> Now with return of GI function but has continued pain, distention. Overall tenderness seems improved on exam, abd soft. Diet as tolerated. Encouraged OOB/ambulation and increasing activity to promote more flatus. Will reassess later in the day. Patient had a bad day yesterday but feels improved today. Abdomen is softer, less distended. Multiple loose stools yesterday, nothing today. Agree with the above assessment and plan. <Darrian Naranjo MD - Last Filed: 04/02/25 11:40> Time Spent With Patient Time: Total time managing care of this patient today ____ minutes. <Ana Bal PA-C - Last Filed: 04/02/25 08:11> Quality Stroke Does the patient have a stroke diagnosis?: No <Ana Bal PA-C - Last Filed: 04/02/25 08:11> VTE Prior VTE?: No <Ana Bal PA-C - Last Filed: 04/02/25 08:11> VTE Risk Level:: Surgical - low <Ana Bal PA-C - Last Filed: 04/02/25 08:11> VTE Device Contraindication: N/A - Device Ordered <KYLIE Castillo Last Filed: 04/02/25 08:11> VTE Drug Contraindication: N/A - Med Ordered <KYLIE Castillo Last Filed: 04/02/25 08:11>
--- NOTE | 2025-04-02 09:09 | HO.PM.IMPN ---
Subjective Subjective Date of Service: 04/03/25 Interval History: Seen and examined this morning Follow-up for more medical consultation, SBO Still reporting abdominal pain but started on diet Physical Exam Vital Signs: Vital Signs: Last Vital Signs Temp 96.8 F 04/02/25 07:30 Pulse 94 04/02/25 07:30 Resp 16 04/02/25 07:30 BP 156/75 H 04/02/25 07:30 Pulse Ox 98 04/02/25 07:30 O2 Del Method Room Air 04/02/25 07:30 O2 Flow Rate 2 04/01/25 03:41 BMI result Body Mass Index 36.8 alert, oriented and was not in distress Objective Data Active Medications Albuterol Sulfate (Albuterol Sulfate 90 Mcg 8 Gm Inhaler) 2 puff INHALE RQ4H PRN PRN Reason: Shortness of Breath/Wheezing Bupropion HCl (Bupropion Hcl Xl 150 Mg Tab.Er.24h) 150 mg PO DAILY [facility] Last Admin: 04/02/25 07:31 Dose: 150 mg Documented By: CHAZ Clonazepam (Clonazepam 1 Mg Tablet) 1 mg PO BID PRN PRN Reason: Anxiety Last Admin: 04/02/25 07:31 Dose: 1 mg Documented By: CHAZ Enoxaparin Sodium (Enoxaparin Sodium 40 Mg/0.4 Ml Syringe) 40 mg SUBCUT Q24H [facility] Last Admin: 04/01/25 17:50 Dose: 40 mg Documented By: DEANGELO Hydromorphone HCl (Hydromorphone Hcl 2 Mg/Ml Vial) 1 mg IVPUSH Q3H PRN; Protocol PRN Reason: Pain, Severe (Pain Scale 7-10) Acetaminophen (Ofirmev) 1,000 mg in 100 mls @ 400 mls/hr IV Q6H [facility] Last Infusion: 04/02/25 07:48 Dose: Infused Documented By: CHAZ Oxycodone HCl (Oxycodone Hcl Immed Release 5 Mg Tablet) 5 mg PO Q4H PRN PRN Reason: Pain, Moderate(Pain Scale 4-6) Last Admin: 04/02/25 07:31 Dose: 5 mg Documented By: CHAZ Pantoprazole Sodium (Pantoprazole Sodium 40 Mg/10 Ml Vial) 40 mg IVPUSH DAILY@0630 [facility] Last Admin: 04/02/25 05:30 Dose: 40 mg Documented By: CHAZ Quetiapine Fumarate (Quetiapine Fumarate 400 Mg Tablet) 400 mg PO BEDTIME [facility] Last Admin: 04/01/25 20:14 Dose: 400 mg Documented By: KIYA Risperidone (Risperidone 0.5 Mg Tablet) 0.5 mg PO BID [facility] Last Admin: 04/02/25 07:31 Dose: 0.5 mg Documented By: CHAZ Sodium Chloride (0.9 % Sodium Chloride Flush 3 Ml Syringe) 3 ml IVFLUSH QSHIFT [facility] Last Admin: 04/02/25 07:31 Dose: 3 ml Documented By: CHAZ Labs 04/01/25 05:02 04/01/25 05:02 Labs: Laboratory Results - last 24 hr 04/01/25 05:02 MCV 88.2 MCH 28.0 MCHC 31.7 RDW 13.2 Plt Count 260 MPV 9.8 Absolute Nucleated RBC 0.000 Nucleated RBC % (auto) 0.0 Anion Gap 14 Estim Creat Clear Calc 49.4 Estimated GFR 49 Random Glucose 128 H Calcium 8.8 Assessment and Plan (1) Small bowel obstruction: Status: Acute Plan Patient is a 69-year-old female past medical history hypertension, hyperlipidemia, GERD, chronic pain management on oxycodone PRN, osteoporosis, depression/anxiety/ mood disorder, , Salomon fundoplication, bowel obstruction, history of colostomy with reversal, hysterectomy full secondary to large fibroid was admitted by general surgery on March 29 for small bowel obstruction. Medical management consultation ordered and patient was seen and examined. Patient is most concerning complaint was almost daily chest pain with anxiety and the experience of grieving the loss of 3 family members over the last 2 years. SBO Diet per surgery Management per surgery, conservative management planned at this time recommend following basic labs, cbc/bnp Chest pain chest pain is relieved when taking Klonopin troponin, BNP negative no cp at this time Hypertension BP on soft side hold baseline nifedipine History of asthma PRN albuterol nebs ordered Hyperlipidemia hold statin for now, can be resumed upon d/c Depression/anxiety will resume baseline meds GERD Protonix IV, then omeprazole p.o. once able to tolerate p.o. medications DVT prophylaxis: Per surgery Thank you to allow us to participate in the care of this patient. we will follow along with you Quality Stroke Does the patient have a stroke diagnosis?: No VTE Prior VTE?: No VTE Risk Level:: Surgical - low VTE Device Contraindication: N/A - Device Ordered VTE Drug Contraindication: N/A - Med Ordered
[2025-04-02 11:24] VITALS: BP 167/76; PULSE 81; RESP 12; TEMP 36.6; O2SAT 95
--- NOTE | 2025-04-02 12:21 | MHC.CM.PN ---
EMR reviewed and per MD rounds, pt is not medically cleared for discharge due to management of SBO.
[2025-04-02 15:28] VITALS: BP 135/84; PULSE 75; RESP 20; TEMP 36.5; O2SAT 94
[2025-04-02 19:17] VITALS: BP 154/74; PULSE 76; RESP 20; TEMP 36.6; O2SAT 95
[2025-04-02 23:28] VITALS: BP 157/74; PULSE 80; RESP 18; TEMP 37; O2SAT 93
[2025-04-03] VITALS (9 sets, daily range): BP systolic 137–187; BP diastolic 64–87; PULSE 67–88; RESP 16–18; TEMP 36–36.7; O2SAT 95–97
[2025-04-03] MEDS: oxyCODONE HCl Immed Release 5 MG TABLET PO ×2 (00:43→07:44)
[2025-04-03] MEDS: buPROPion HCl XL 150 MG TAB.ER.24H PO (07:19)
[2025-04-03] MEDS: 0.9 % Sodium Chloride Flush 3 ML SYRINGE IVFLUSH ×2 (07:19→14:20)
--- NOTE | 2025-04-03 07:43 | P.PNGS_ITS ---
Subjective Subjective Date of Service: 04/03/25 <Ana Bal PA-C - Last Filed: 04/03/25 08:21> 04/03/25 <Erick Cody MD - Last Filed: 04/03/25 08:59> Interval history: She overall feels better but continues to have pain, although less. Passing more flatus. Ate an entire sandwich overnight. Did not ambulate for the past two days. <Ana Bal PA-C - Last Filed: 04/03/25 08:21> Physical Exam 2 Vital Signs: Vital Signs: Last Vital Signs Temp 97.9 F 04/03/25 07:30 Pulse 67 04/03/25 07:30 Resp 18 04/03/25 07:30 BP 150/73 H 04/03/25 07:30 Pulse Ox 97 04/03/25 07:30 O2 Del Method Room Air 04/03/25 07:30 O2 Flow Rate 2 04/01/25 03:41 BMI result Body Mass Index 36.8 <Ana Bal PA-C - Last Filed: 04/03/25 08:21> Const: General: comfortable, no acute distress and alert <Ana Bal PA-C - Last Filed: 04/03/25 08:21> Orientation/consciousness: patient oriented x3 <KYLIE Castillo Last Filed: 04/03/25 08:21> Resp: Effort & Inspection: normal respiratory effort <KYLIE Castillo Last Filed: 04/03/25 08:21> GI: Inspection: Yes distended <Ana Bal PA-C - Last Filed: 04/03/25 08:21> Palpation (GI): Soft to palpation, Tenderness to palpation present (GI) (mild diffuse ) and no guarding <KYLIE Castillo Last Filed: 04/03/25 08:21> Percussion: Yes tympanic to percussion <KYLIE Castillo Last Filed: 04/03/25 08:21> Skin: General skin exam: no rashes or lesions noted <KYLIE Castillo Last Filed: 04/03/25 08:21> Neuro: General: patient oriented x3 and moves all extremities <Ana Bal PA-C - Last Filed: 04/03/25 08:21> Objective Data Active Medications Albuterol Sulfate (Albuterol Sulfate 90 Mcg 8 Gm Inhaler) 2 puff INHALE RQ4H PRN PRN Reason: Shortness of Breath/Wheezing Bupropion HCl (Bupropion Hcl Xl 150 Mg Tab.Er.24h) 150 mg PO DAILY [facility] Last Admin: 04/03/25 07:19 Dose: 150 mg Documented By: CRISTINA Clonazepam (Clonazepam 1 Mg Tablet) 1 mg PO BID PRN PRN Reason: Anxiety Last Admin: 04/03/25 07:21 Dose: 1 mg Documented By: CRISTINA Enoxaparin Sodium (Enoxaparin Sodium 40 Mg/0.4 Ml Syringe) 40 mg SUBCUT Q24H [facility] Last Admin: 04/02/25 18:22 Dose: 40 mg Documented By: ADRIANNE Hydromorphone HCl (Hydromorphone Hcl 2 Mg/Ml Vial) 1 mg IVPUSH Q3H PRN; Protocol PRN Reason: Pain, Severe (Pain Scale 7-10) Last Admin: 04/03/25 05:47 Dose: 1 mg Documented By: GORDON Acetaminophen (Ofirmev) 1,000 mg in 100 mls @ 400 mls/hr IV Q6H [facility] Last Infusion: 04/03/25 07:43 Dose: Infused Documented By: CRISTINA Oxycodone HCl (Oxycodone Hcl Immed Release 5 Mg Tablet) 5 mg PO Q4H PRN PRN Reason: Pain, Moderate(Pain Scale 4-6) Last Admin: 04/03/25 00:43 Dose: 5 mg Documented By: GORDON Pantoprazole Sodium (Pantoprazole Sodium 40 Mg/10 Ml Vial) 40 mg IVPUSH DAILY@0630 [facility] Last Admin: 04/03/25 05:44 Dose: 40 mg Documented By: GORDON Quetiapine Fumarate (Quetiapine Fumarate 400 Mg Tablet) 400 mg PO BEDTIME [facility] Last Admin: 04/02/25 21:35 Dose: 400 mg Documented By: GORDON Risperidone (Risperidone 0.5 Mg Tablet) 0.5 mg PO BID [facility] Last Admin: 04/03/25 07:19 Dose: 0.5 mg Documented By: CRISTINA Sodium Chloride (0.9 % Sodium Chloride Flush 3 Ml Syringe) 3 ml IVFLUSH QSHIFT [facility] Last Admin: 04/03/25 07:19 Dose: 3 ml Documented By: CRISTINA <Ana Bal PA-C - Last Filed: 04/03/25 08:21> Labs CBC & Chem 7: 04/01/25 05:02 04/01/25 05:02 <Ana Bal PA-C - Last Filed: 04/03/25 08:21> Procedures Date of Service Date of Service: 04/03/25 <Ana Bal PA-C - Last Filed: 04/03/25 08:21> 04/03/25 <Erick Cody MD - Last Filed: 04/03/25 08:59> Progress Note: A&P Assessment and plan (1) Small bowel obstruction: Status: Acute <Ana Bal PA-C - Last Filed: 04/03/25 08:21> Assessment and Plan: Tolerating diet but admits to pain No nausea or vomiting Passing flatus Abdomen is soft We will re-evaluate later on for possible discharge She had and examined independently <Erick Cody MD - Last Filed: 04/03/25 08:59> Assessment and Plan: Overall feels improved this morning with less pain. Now with return of GI function and tolerating solid diet but has continued pain, distention. Overall tenderness seems improved on exam, abd soft. Diet as tolerated. Encouraged OOB/ambulation and increasing activity to promote more flatus. Will reassess later in the day for possible dc to home. <Ana Bal PA-C - Last Filed: 04/03/25 08:21> Time Spent With Patient Time: Total time managing care of this patient today ____ minutes. <Ana Bal PA-C - Last Filed: 04/03/25 08:21> Quality Stroke Does the patient have a stroke diagnosis?: No <KYLIE Castillo Last Filed: 04/03/25 08:21> VTE Prior VTE?: No <Ana Bal PA-C - Last Filed: 04/03/25 08:21> VTE Risk Level:: Surgical - low <KYLIE Castillo Last Filed: 04/03/25 08:21> VTE Device Contraindication: N/A - Device Ordered <KYLIE Castillo Last Filed: 04/03/25 08:21> VTE Drug Contraindication: N/A - Med Ordered <Ana Bal PA-C - Last Filed: 04/03/25 08:21>
--- NOTE | 2025-04-03 08:54 | PM.EVENT ---
Event Note Date of Service: 04/03/25 Event Note: Pt seen/examined, labs revieed, no new issues, had some pain last night, but better this morning, BP is slightly hid but has been previously normal. She would like to go home today, No acute medical issuesl at this, would resume home bp meds and statin. Medically ok to dc inpatient level 2 Time Spent With Patient Time: Total time managing care of this patient today ____ minutes.
[2025-04-03] MEDS: NIFEdipine ER 60 MG TAB.ER.24 PO (18:34)
[2025-04-04 04:00] VITALS: BP 134/65; PULSE 87; RESP 18; TEMP 36.4; O2SAT 95
[2025-04-04 07:28] VITALS: BP 129/63; PULSE 97; RESP 18; TEMP 36.2; O2SAT 96
[2025-04-04] MEDS: oxyCODONE HCl Immed Release 5 MG TABLET PO (07:46)
[2025-04-04] MEDS: buPROPion HCl XL 150 MG TAB.ER.24H PO ×2 (07:46→07:48)
--- NOTE | 2025-04-04 08:32 | PM.PNGS ---
Subjective Subjective Date of Service: 04/04/25 Interval history: Patient feels much improved, does not want to take the oral pain medication because she feels that cause the bowel obstruction. She Is tolerating regular diet and having regular bowel movements. Physical Exam Vital Signs: Vital Signs: Last Vital Signs Temp 97.2 F 04/04/25 07:28 Pulse 97 04/04/25 07:28 Resp 18 04/04/25 07:28 BP 129/63 04/04/25 07:28 Pulse Ox 96 04/04/25 07:28 O2 Del Method Room Air 04/04/25 07:28 O2 Flow Rate 2 04/01/25 03:41 BMI result Body Mass Index 36.8 Const: General: no acute distress Nutritional Appearance: well nourished Orientation/consciousness: patient oriented x3 Limitations: no limitations Resp: Effort & Inspection: normal respiratory effort GI: Inspection: Yes normal to inspection Palpation (GI): Soft to palpation, nontender, no guarding and not rigid Percussion: Yes normal to percussion Neuro: General: patient oriented x3 Extrem: General: No cyanosis and No edema Objective Data Active Medications Albuterol Sulfate (Albuterol Sulfate 90 Mcg 8 Gm Inhaler) 2 puff INHALE RQ4H PRN PRN Reason: Shortness of Breath/Wheezing Atorvastatin Calcium (Atorvastatin Calcium 40 Mg Tablet) 40 mg PO BEDTIME [facility] Last Admin: 04/03/25 21:18 Dose: 40 mg Documented By: JOSUE Bupropion HCl (Bupropion Hcl Xl 150 Mg Tab.Er.24h) 150 mg PO DAILY [facility] Last Admin: 04/04/25 07:48 Dose: 150 mg Documented By: CHAZ Clonazepam (Clonazepam 1 Mg Tablet) 1 mg PO BID PRN PRN Reason: Anxiety Last Admin: 04/04/25 07:46 Dose: 1 mg Documented By: CHAZ Enoxaparin Sodium (Enoxaparin Sodium 40 Mg/0.4 Ml Syringe) 40 mg SUBCUT Q24H [facility] Last Admin: 04/03/25 17:38 Dose: 40 mg Documented By: LUCIAME Hydromorphone HCl (Hydromorphone Hcl 2 Mg/Ml Vial) 1 mg IVPUSH Q3H PRN; Protocol PRN Reason: Pain, Severe (Pain Scale 7-10) Last Admin: 04/04/25 06:03 Dose: 1 mg Documented By: JOSUE Acetaminophen (Ofirmev) 1,000 mg in 100 mls @ 400 mls/hr IV Q6H [facility] Last Admin: 04/04/25 07:47 Dose: Not Given Documented By: CHAZ Non-Admin Reason: Patient Refused Nifedipine (Nifedipine Er 60 Mg Tab.Er.24) 60 mg PO BEDTIME [facility]; Protocol Last Admin: 04/03/25 18:34 Dose: 60 mg Documented By: CRISTINA Comments: MD advised to give early due to increased bp Oxycodone HCl (Oxycodone Hcl Immed Release 5 Mg Tablet) 5 mg PO Q4H PRN PRN Reason: Pain, Moderate(Pain Scale 4-6) Last Admin: 04/04/25 07:46 Dose: 5 mg Documented By: CHAZ Quetiapine Fumarate (Quetiapine Fumarate 400 Mg Tablet) 400 mg PO BEDTIME [facility] Last Admin: 04/03/25 21:17 Dose: 400 mg Documented By: JOSUE Risperidone (Risperidone 0.5 Mg Tablet) 0.5 mg PO BID [facility] Last Admin: 04/04/25 07:46 Dose: 0.5 mg Documented By: CHAZ Sodium Chloride (0.9 % Sodium Chloride Flush 3 Ml Syringe) 3 ml IVFLUSH QSHIFT [facility] Last Admin: 04/04/25 07:47 Dose: Not Given Documented By: CHAZ Non-Admin Reason: Previously Administered Labs 04/01/25 05:02 04/01/25 05:02 Procedures Date of Service Date of Service: 04/04/25 Progress Note: A&P Assessment and plan (1) Small bowel obstruction: Status: Resolved Plan 69-year-old female patient with recurring partial small-bowel obstruction now much improved, tolerating regular diet. She feels ready for discharge to home. On examination her abdomen is soft and nondistended, nontender to palpation. She will be discharged to home. She may remain on a regular diet and should follow up as needed. Time Spent With Patient Time: Total time managing care of this patient today ____ minutes. Quality Stroke Does the patient have a stroke diagnosis?: No VTE Prior VTE?: No VTE Risk Level:: Surgical - low VTE Device Contraindication: N/A - Device Ordered VTE Drug Contraindication: N/A - Med Ordered
--- NOTE | 2025-04-04 08:46 | P.PNIM_ITS ---
Subjective Subjective Date of Service: 04/04/25 Interval History: She's feeling better and ready to go home Physical Exam 2 Vital Signs: Vital Signs: Last Vital Signs Temp 97.2 F 04/04/25 07:28 Pulse 97 04/04/25 07:28 Resp 18 04/04/25 07:28 BP 129/63 04/04/25 07:28 Pulse Ox 96 04/04/25 07:28 O2 Del Method Room Air 04/04/25 07:28 O2 Flow Rate 2 04/01/25 03:41 BMI result Body Mass Index 36.8 Const: Other: General: AO X 3, no acute distress Resp: CTA bilateral CVS: S1,S2,RRR GI: +BS, NT, no distention Skin: No rash Neuro: motor grossly intact Psych: appropriate affect Objective Data Active Medications Albuterol Sulfate (Albuterol Sulfate 90 Mcg 8 Gm Inhaler) 2 puff INHALE RQ4H PRN PRN Reason: Shortness of Breath/Wheezing Atorvastatin Calcium (Atorvastatin Calcium 40 Mg Tablet) 40 mg PO BEDTIME [facility] Last Admin: 04/03/25 21:18 Dose: 40 mg Documented By: JOSUE Bupropion HCl (Bupropion Hcl Xl 150 Mg Tab.Er.24h) 150 mg PO DAILY [facility] Last Admin: 04/04/25 07:48 Dose: 150 mg Documented By: CHAZ Clonazepam (Clonazepam 1 Mg Tablet) 1 mg PO BID PRN PRN Reason: Anxiety Last Admin: 04/04/25 07:46 Dose: 1 mg Documented By: CHAZ Enoxaparin Sodium (Enoxaparin Sodium 40 Mg/0.4 Ml Syringe) 40 mg SUBCUT Q24H JORDAN Last Admin: 04/03/25 17:38 Dose: 40 mg Documented By: LUCIAME Hydromorphone HCl (Hydromorphone Hcl 2 Mg/Ml Vial) 1 mg IVPUSH Q3H PRN; Protocol PRN Reason: Pain, Severe (Pain Scale 7-10) Last Admin: 04/04/25 06:03 Dose: 1 mg Documented By: JOSUE Acetaminophen (Ofirmev) 1,000 mg in 100 mls @ 400 mls/hr IV Q6H [facility] Last Admin: 04/04/25 07:47 Dose: Not Given Documented By: CHAZ Non-Admin Reason: Patient Refused Nifedipine (Nifedipine Er 60 Mg Tab.Er.24) 60 mg PO BEDTIME [facility]; Protocol Last Admin: 04/03/25 18:34 Dose: 60 mg Documented By: CRISTINA Comments: MD advised to give early due to increased bp Oxycodone HCl (Oxycodone Hcl Immed Release 5 Mg Tablet) 5 mg PO Q4H PRN PRN Reason: Pain, Moderate(Pain Scale 4-6) Last Admin: 04/04/25 07:46 Dose: 5 mg Documented By: CHAZ Quetiapine Fumarate (Quetiapine Fumarate 400 Mg Tablet) 400 mg PO BEDTIME [facility] Last Admin: 04/03/25 21:17 Dose: 400 mg Documented By: JOSUE Risperidone (Risperidone 0.5 Mg Tablet) 0.5 mg PO BID [facility] Last Admin: 04/04/25 07:46 Dose: 0.5 mg Documented By: CHAZ Sodium Chloride (0.9 % Sodium Chloride Flush 3 Ml Syringe) 3 ml IVFLUSH QSHIFT [facility] Last Admin: 04/04/25 07:47 Dose: Not Given Documented By: CHAZ Non-Admin Reason: Previously Administered Labs 04/01/25 05:02 04/01/25 05:02 Assessment and Plan (1) Small bowel obstruction: Status: Resolved Plan Patient is a 69-year-old female past medical history hypertension, hyperlipidemia, GERD, chronic pain management on oxycodone PRN, osteoporosis, depression/anxiety/ mood disorder, , Salomon fundoplication, bowel obstruction, history of colostomy with reversal, hysterectomy full secondary to large fibroid was admitted by general surgery on March 29 for small bowel obstruction. Medical management consultation ordered and patient was seen and examined. Patient is most concerning complaint was almost daily chest pain with anxiety and the experience of grieving the loss of 3 family members over the last 2 years. SBO, clinically appear resolved, tolerating diet. further management per surgery Chest pain chest pain is relieved when taking Klonopin troponin, BNP negative no cp at this time Hypertension, restarted Nifedipine, bp nl History of asthma PRN albuterol nebs ordered Hyperlipidemia statin Depression/anxiety continue home meds GERD Protonix IV, then omeprazole p.o. once able to tolerate p.o. medications DVT prophylaxis: Per surgery Thank you to allow us to participate in the care of this patient. we will follow along with you Quality Stroke Does the patient have a stroke diagnosis?: No VTE Prior VTE?: No VTE Risk Level:: Surgical - low VTE Device Contraindication: N/A - Device Ordered VTE Drug Contraindication: N/A - Med Ordered
--- NOTE | 2025-04-04 08:46 | MHC.CM.PN ---
PT WILL DC HOME TODAY WITH RESUMPTION OF HER [employer] SHE REPORTS SHE HAS A RIDE
--- NOTE | 2025-04-04 11:37 | PM.DS ---
DS: Providers Provider Date of Service: 04/04/25 Date of admission: 03/29/25 18:21 Date of discharge: 04/04/25 Primary care physician: Bela Vasquez MD Attending physician on admission: Ashley Bell Consults: 03/29/25 21:59 Consult to Hospitalist Stat Comment: Consulting Provider: Madi Kern Reason For Exam: medical management Attending physician on discharge: Darrian Naranjo DS: Diagnosis Discharge Diagnosis (1) Small bowel obstruction: Status: Resolved DS: Summary Hospital Course Hospital Course: HPI AT ADMISSION: 69-year-old female with a past medical history significant hypertension, anxiety, asthma, depression, history of small-bowel obstruction, most recently 1 year ago presents for evaluation of abdominal pain. She has had several admissions for partial small bowel obstruction and has done well without requiring surgery. She has an extensive surgical history and details are uncertain but seems have included a sigmoid resection for sigmoid volvulus, possible ostomy, ex lap with drainage of intraabdominal abscess, ex lap colostomy reversal with primary colorectal anastomosis and parastomal hernia repair at [facility]. She also has had hysterectomy, cholecystectomy and dayna fundoplication. This time she says she has not had a bowel movement for 2 days and was generally feeling well until yesterday when she started having more abdominal pain. This progressed more and she woke up feeling nauseated and vomiting. She has not vomited since she has been here. She says the pain comes in in holds her very tightly. She has been passing gas though. CAT scan does not show very distended stomach, demonstrates dilated small bowel loops. HOSPITAL COURSE: She was admitted to the surgical service for further treatment of the SBO. She had some improvement in her pain and evidence of GI function along with prior episodes resolving with nonoperative management and therefore supportive measures were continued with NPO IV fluid resuscitation and bowel rest, NG tube decompression was held off as she was not vomiting. Hospitalist consult was obtained for management of her medical comorbidities. She had a long but uncomplicated hospital course. She had some improvement in her symptoms but persistent abdominal pain and bloating. She had f/u AXR which showed contrast from the admission CT scan in her colon, going against obstruction. She was ambulated and her activity increased, weaned off opioid analgesics. She began to pass flatus and then began to move her bowels. Her diet was advanced to clear liquids and then solids. She remained inpatient for several days as her abd pain persisted and remained distended although this slowly improved. On the day of discharge, she was tolerating a solid diet without nausea or vomiting. Her pain had resolved and she had good GI function. She was hemodynamically stable. her abdomen was benign and soft, nontender nondistended. She was discharged to home on 04/04/25 in stable condition. She is to follow up with her PCP. Time Attestation Discharge Coordination Time (in mins): 35 Quality: Safe Use of Opioids Does Pt have an Active Cancer Diagnosis on the Problem List?: No Quality: Stroke Does the patient have a stroke diagnosis?: No Physical Exam Vital Signs: Vital Signs: Last Vital Signs Temp 97.2 F 04/04/25 07:28 Pulse 97 04/04/25 07:28 Resp 18 04/04/25 07:28 BP 129/63 04/04/25 07:28 Pulse Ox 96 04/04/25 07:28 O2 Del Method Room Air 04/04/25 07:28 O2 Flow Rate 2 04/01/25 03:41 BMI result Body Mass Index 36.8 Const: General: comfortable, no acute distress and alert Orientation/consciousness: patient oriented x3 Resp: Effort & Inspection: normal respiratory effort GI: Inspection: No distended Palpation (GI): Soft to palpation and nontender Neuro: General: patient oriented x3 Discharge Plan Discharge Anticipated Discharge Date/Time: 04/04/25 09:19 Patient Disposition: Home, Self-Care Discharge Diagnosis: partial SBO Referrals: Bela Vasquez MD [Primary Care Provider, Internal Medicine] - 1 Week Discharge Medications: Continued atorvastatin 40 mg tablet 40 mg PO BEDTIME clonazepam 1 mg tablet 1 mg PO BID PRN (Reason: Anxiety) omeprazole 20 mg capsule,delayed release(DR/EC) 20 mg PO BID@0630,1630 risperidone 0.5 mg tablet 0.5 mg PO BID oxycodone 5 mg tablet 5 mg PO Q12H PRN (Reason: pain) escitalopram oxalate 10 mg tablet 1 tab PO DAILY PRN (Reason: Anxiety) oxycodone [OxyContin] 10 mg tablet,oral only,ext.rel.12 hr 10 mg PO BID nifedipine 60 mg tablet extended release 24 hr 60 mg PO BEDTIME quetiapine 400 mg tablet 400 mg PO BEDTIME cholecalciferol (vitamin D3) 25 mcg (1,000 unit) tablet 25 mcg PO DAILY bupropion HCl 150 mg Tablet Extended Release 24 Hr 150 mg PO DAILY alendronate 70 mg tablet 70 mg PO BAKER bisacodyl 5 mg tablet,delayed release (DR/EC) 10 mg PO Q3D PRN (Reason: constipation) albuterol sulfate 90 mcg/actuation HFA aerosol inhaler 2 inh inhalation Q4H PRN (Reason: Shortness Of Breath Or Wheezing) Discharge Orders: Discharge Order (Routine); Ordered 04/04/25 Ordered By: Darrian Naranjo Diet: Advance to usual diet Activity on Discharge: As tolerated Stand Alone Forms: Patient Portal Discharge page Print Language: [place] Islander Activity Restrictions/Additional Instructions: Follow up with your PCP. Call Your Doctor If: ? ? -Your temperature exceeds 101.5? F? ? ? -You experience excessive pain or swelling ? ? -You have an unexpected reaction to medication ? ? -You experience continued vomiting/nausea Care Plan Goals: Return to baseline health and resume normal activities. Health Concerns: HTN SBO Plan of Treatment: Bowel rest, IVF F/u with PCP Assessment: Improved Discharge Date/Time: 04/04/25 10:00
== END 2025-04-04 10:00 | disposition home or self-care (01) | DRG 390 ==
LOC: HO.ED 18:05 → HO.EDOVER 18:29 → HO.S3 19:21
PROVIDERS: Nurse Practitioner Family; Physician Assistant; Physician Assistant Medical; Admitting Provider Surgery; Emergency Provider Emergency Medicine; PCP Family Medicine; Visit Provider Surgery
DX: K56.609 Unspecified intestinal obstruction, unspecified as to partial versus complete obstruction (principal); I10 Essential (primary) hypertension; J45.909 Unspecified asthma, uncomplicated; E78.5 Hyperlipidemia, unspecified; F41.9 Anxiety disorder, unspecified; F32.A Depression, unspecified; K21.9 Gastro-esophageal reflux disease without esophagitis; M81.0 Age-related osteoporosis without current pathological fracture; Z79.899 Other long term (current) drug therapy
CPT/HCPCS: 36415; 71045; 74022; 74177; 80048; 80053; 80061; 81001; 83605; 83690; 83735; 83880; 84443; 84484; 85025; 85027; 93005; 99285; J0131; J1171; J1650; J2270; J2405; J2470; J7120; Q9967

== ENCOUNTER → 2025-03-29 13:51 | Outpatient (BNV) | payer OTHER, SELFPAY | PROVIDERS: Emergency Provider Emergency Medicine; PCP Family Medicine; Visit Provider Specialist | DX: R10.9 Unspecified abdominal pain (principal) | CPT/HCPCS: 74177 ==

== ENCOUNTER → 2025-03-29 16:21 | Outpatient (BNV) | payer OTHER, SELFPAY | PROVIDERS: Admitting Provider Surgery; Emergency Provider Emergency Medicine; PCP Family Medicine; Visit Provider Internal Medicine | DX: R94.31 Abnormal electrocardiogram [ECG] [EKG] (principal); R53.1 Weakness | CPT/HCPCS: 93010 ==

== ENCOUNTER 2025-03-29 18:21 | Outpatient (BNV) | payer OTHER, SELFPAY | END 2025-04-01 01:05 | PROVIDERS: Admitting Provider Surgery; Emergency Provider Emergency Medicine; PCP Family Medicine; Visit Provider Radiology Diagnostic Radiology | DX: J98.11 Atelectasis (principal) | CPT/HCPCS: 71045 ==

== ENCOUNTER 2025-03-29 18:21 | Outpatient (BNV) | payer OTHER, SELFPAY | END 2025-03-30 08:00 | PROVIDERS: Admitting Provider Surgery; Emergency Provider Emergency Medicine; PCP Family Medicine; Visit Provider Internal Medicine | DX: I44.4 Left anterior fascicular block (principal) | CPT/HCPCS: 93010 ==

== ENCOUNTER 2025-03-29 18:21 | Outpatient (BNV) | payer OTHER, SELFPAY | END 2025-03-31 07:34 | PROVIDERS: Admitting Provider Surgery; Emergency Provider Emergency Medicine; PCP Family Medicine; Visit Provider Radiology Diagnostic Radiology | DX: R14.0 Abdominal distension (gaseous) (principal) | CPT/HCPCS: 74022 ==

== ENCOUNTER → 2025-03-29 18:21 | Outpatient (BNV) | payer OTHER, SELFPAY | PROVIDERS: Admitting Provider Surgery; Emergency Provider Emergency Medicine; PCP Family Medicine; Visit Provider Surgery | DX: K56.609 Unspecified intestinal obstruction, unspecified as to partial versus complete obstruction (principal) | CPT/HCPCS: 99222; 99232 ==

== ENCOUNTER → 2025-03-29 18:21 | Outpatient (BNV) | payer OTHER, SELFPAY | PROVIDERS: Admitting Provider Surgery; Emergency Provider Emergency Medicine; PCP Family Medicine; Visit Provider Nurse Practitioner Family | DX: K56.609 Unspecified intestinal obstruction, unspecified as to partial versus complete obstruction (principal); I10 Essential (primary) hypertension | CPT/HCPCS: 99222; 99499 ==

== ENCOUNTER 2025-09-29 10:59 | Outpatient (REF) | payer OTHER, SELFPAY ==
--- OUTSIDE RECORDS SUMMARY | 2025-09-29 12:49 | XMS_ITS | Encounter Summary ---
Author Organization [employer] Address [address] [facility] 7t [place] [address] Care Team Providers Care Bonding Machine Operator Name Role Phone Bela Vasquez MD Primary Care Provider [phone] Urban Matta MD Unavailable [phone] Reason for Visit * Reason Comments Med Refill Encounter Details Date Type Department Care Team ([facility] st Contact Info) Description 07/23/2023 Refill [facility] MEDICINE [address] [place], [place] [phone] Bela Vasquez MD [address] [place], [place] [phone] Social History Tobacco Use Types Packs/Day Years [...] t he electric, gas, oil or water [employer] threatened to shut off services in your [...] Care Team (Late st Contact Info) Description 12/11/2025 1:00 PM EDT Clinical Support [facility] MED & PEDS [address] [place] [address] Melba Savage, INÉS [address] [place] [address] documented as of this encounter Visit Diagnoses Not on filedocumented in this encounter Additional Health Concerns Assessment Noted Time PHQ-9 Depression Total Score: 2 02/02/20 23 11:12 AM EDT documented as of this encounter Care Teams Bonding Machine Operator Relationship Specialty Start Date End Date Bela Vasquez MD [address] [place] [address] PCP - General Family Medicine 10/02/18 Urban Matta MD [address] [place] [address] Nephrology 08/27/24 documented as of this encounter
--- OUTSIDE RECORDS SUMMARY | 2025-09-29 12:49 | XMS_ITS | Encounter Summary ---
Author Organization [employer] Address [address] [facility] 7t [place] [address] Care Team Providers Care Arcade Technician Name Role Phone Bela Vasquez MD Primary Care Provider [phone] Urban Matta MD Unavailable [phone] Reason for Visit * Reason Onset Date Comments Med Refill 05/13/2024 Encounter Details Date Type Department Care Team (Late st Contact Info) Description 05/13/2024 Telephone [facility] MEDICINE [address] [place], [place] [phone] Bela Vasquez MD [address] [place], [place] [phone] Med Refill Social History Tobacco Use Types [...] 12 hr tablet To be sent to: [email or web address] #[id number] AT [facility] documented in this encounter Plan of Treatment Upcoming Encounters Date Type Department Care Team ([facility] st Contact Info) Description 12/11/2025 1:00 PM EDT Clinical Support [facility] MED & PEDS [address] [place] [address] Melba Savage, RN [address] [place] [address] documented as of this encounter Visit Diagnoses Not on filedocumented in this encounter Additional Health Concerns Assessment Noted Time PHQ-9 Depression Total Score: 2 02/02/20 23 11:12 AM EDT documented as of this encounter Care Teams Arcade Technician Relationship Specialty Start Date End Date Bela Vasquez MD [address] [place] [address] PCP - General Family Medicine 10/02/18 Urban Matta MD [address] [place] [address] Nephrology 08/27/24 documented as of this encounter
--- OUTSIDE RECORDS SUMMARY | 2025-09-29 12:49 | XMS_ITS | Encounter Summary ---
Author Organization [employer] Address [address] [place] [address] 7t [place] [address] Care Team Providers Care Desizing Machine Operator Name Role Phone Bela Vasquez MD Primary Care Provider [phone] Urban Matta MD Unavailable [phone] Reason for Visit * Reason Onset Date Comments Med Refill 05/11/2023 Encounter Details Date Type Department Care Team (Late st Contact Info) Description 05/11/2023 Telephone [facility] MEDICINE [address] [place], [place] [phone] Bela Vasquez MD [address] [place], [place] [phone] Med Refill Social History Tobacco Use Types [...] Description 12/11/2025 1:00 PM EDT Clinical Support [facility] MED & PEDS [address] [place] [address] Melba Savage, RN [address] [place] [address] documented as of this encounter Visit Diagnoses Not on filedocumented in this encounter Additional Health Concerns Assessment Noted Time PHQ-9 Depression Total Score: 2 02/02/20 23 11:12 AM EDT documented as of this encounter Care Teams Desizing Machine Operator Relationship Specialty Start Date End Date Bela Vasquez MD [address] [place] [address] PCP - General Family Medicine 10/02/18 Urban Matta MD [address] [place] [address] Nephrology 08/27/24 documented as of this encounter
--- OUTSIDE RECORDS SUMMARY | 2025-09-29 12:49 | XMS_ITS | Encounter Summary ---
Author Organization [employer] Address [address] [facility] [address] 7[address] [place] [address] Care Team Providers Care Customer Service Security Officer Name Role Phone Bela Vasquez MD Primary Care Provider [phone] Urban Matta MD Unavailable [phone] Reason for Visit * Reason Onset Date Comments Med Refill 08/13/2024 Encounter Details Date Type Department Care Team (Late st Contact Info) Description 08/13/2024 Telephone [facility] MEDICINE [address] [place], [place] [phone] Bela Vasquez MD [address] [place], [place] [phone] Med Refill Social History Tobacco Use Types [...] 12 hr tablet To be sent to: [facility] #[id number] documented in this encounter Plan of Treatment Upcoming Encounters Date Type Department Care Team (Late st Contact Info) Description 12/11/2025 1:00 PM EDT Clinical Support [facility] MED & PEDS [address] [place] [address] Melba Savage RN [address] [place] [address] documented as of this encounter Visit Diagnoses Not on filedocumented in this encounter Additional Health Concerns Assessment Noted Time PHQ-9 Depression Total Score: 3 06/24/20 24 1:09 PM EDT documented as of this encounter Care Teams Customer Service Security Officer Relationship Specialty Start Date End Date Bela Vasquez MD [address] [place] [address] PCP - General Family Medicine 10/02/18 Urban Matta MD [address] [place] [address] Nephrology 08/27/24 documented as of this encounter
--- OUTSIDE RECORDS SUMMARY | 2025-09-29 12:49 | XMS_ITS | Encounter Summary ---
Author Organization [employer] Address [address] [place] [address] 7t [place] [address] Care Team Providers Care Professor Of Finance Name Role Phone Bela Vasquez MD Primary Care Provider [phone] Urban Matta MD Unavailable [phone] Reason for Visit * Reason Onset Date Comments Med Refill 04/13/2023 Encounter Details Date Type Department Care Team (Late st Contact Info) Description 04/13/2023 Refill [facility] MEDICINE [address] [place], [place] [phone] Bela Vasquez MD [address] [place] [address] Dyslipidemia; Lumbar post-laminectomy syndrome Social History Tobacco [...] Description 12/11/2025 1:00 PM EDT Clinical Support [facility] MED & PEDS 505 [facility] [place] [phone] Melba Savage RN [address] [facility] [place] [address] documented as of this encounter Visit Diagnoses Diagnosis Dyslipidemia Other and unspecified hyperlipidemia Lumbar post-laminectomy syndrome Postlaminectomy syndrome, lumbar region documented in this encounter Additional Health Concerns Assessment Noted Time PHQ-9 Depression Total Score: 2 02/02/20 23 11:12 AM EDT documented as of this encounter Care Teams Professor Of Finance Relationship Specialty Start Date End Date Bela Vasquez MD [address] [place] [address] PCP - General Family Medicine 10/02/18 [place] [address] [place] [address] Nephrology 08/27/24 documented as of this encounter
--- OUTSIDE RECORDS SUMMARY | 2025-09-29 12:49 | XMS_ITS | Encounter Summary ---
Author Organization [employer] Address [address] [place] [address] 7t [place] [address] Care Team Providers Care Taxi Driver Name Role Phone Bela Vasquez MD Primary Care Provider [phone] Urban Matta MD Unavailable [phone] Reason for Visit * Reason Onset Date Comments Med Refill 03/15/2023 Encounter Details Date Type Department Care Team (Late st Contact Info) Description 03/15/2023 Telephone [facility] MEDICINE [address] [place], [place] [phone] Bela Vasquez MD [address] [place], [place] [phone] Med Refill Social History Tobacco Use Types [...] Miscellaneous Notes * Telephone Encounter - Jennifer Keller - 03/15/2023 2:38 PM EDT Tc from pt requesting medication refill for oxyCODONE ER (OxyCONTIN) 10 MG 12 hr tablet and oxyCODONE (Roxicodone) 5 MG immediate release tablet documented in this encounter Plan of Treatment Upcoming Encounters Date Type Department Care Team (Late st Contact Info) Description 12/11/2025 1:00 PM EDT Clinical Support [facility] MED & PEDS [address] [place] [address] Melba Savage, RN 505 [place] [address] documented as of this encounter Visit Diagnoses Not on filedocumented in this encounter Additional Health Concerns Assessment Noted Time PHQ-9 Depression Total Score: 2 02/02/20 23 11:12 AM EDT documented as of this encounter Care Teams Taxi Driver Relationship Specialty Start Date End Date Bela Vasquez MD [address] [place] [id number] PCP - General Family Medicine 10/02/18 [place] [address] [place] [address] Nephrology 08/27/24 documented as of this encounter
--- OUTSIDE RECORDS SUMMARY | 2025-09-29 12:49 | XMS_ITS | Encounter Summary ---
Author Organization [employer] Address [address] [place] [address] 7t [place] [address] Care Team Providers Care Private Investigator Surveillance Name Role Phone Bela Vasquez MD Primary Care Provider [phone] Urban Matta MD Unavailable [phone] Reason for Visit * Reason Onset Date Comments Med Refill 06/08/2023 Encounter Details Date Type Department Care Team (Late st Contact Info) Description 06/08/2023 Telephone [facility] MEDICINE [address] [place], [place] [phone] Bela Vasquez MD [address] [place], [place] [phone] Med Refill Social History Tobacco Use Types [...] * Telephone Encounter - Jennifer Keller - 06/08/2023 9:15 AM EDT Tc from pt requesting medication refill on oxyCODONE (Roxicodone) 5 MG immediate release tablet andoxyCODONE ER (OxyCONTIN) 10 MG 12 hr tablet documented in this encounter Plan of Treatment Upcoming Encounters Date Type Department Care Team (Late st Contact Info) Description 12/11/2025 1:00 PM EDT Clinical Support [facility] MED & PEDS [address] [place] [address] Melba Savage, RN [address] [place] [address] documented as of this encounter Visit Diagnoses Not on filedocumented in this encounter Additional Health Concerns Assessment Noted Time PHQ-9 Depression Total Score: 2 02/02/20 23 11:12 AM EDT documented as of this encounter Care Teams Private Investigator Surveillance Relationship Specialty Start Date End Date Bela Vasquez MD [address] [place] [address] PCP - General Family Medicine 10/02/18 [place] [address] [place] [address] Nephrology 08/27/24 documented as of this encounter
--- OUTSIDE RECORDS SUMMARY | 2025-09-29 12:49 | XMS_ITS | Clinical Summary ---
Author Organization [employer] Address [address] [facility] [address] [place] [address] Care Team Providers Care Impregnating Helper Name Role Phone Bela Nuñez MD Primary Care Provider [phone] Urban Matta MD Unavailable [phone] Allergies Active Allergy Reactions Criticality Noted [...] tablet Take 1 tablet by mouth. Active naloxone (Narcan) 4 mg/0.1 mL nasal [...] 025 Active Sodium Fluoride 1.1 % cream [place] teeth for 2 minutes, morning and night. Spit, do not rinse. Do not eat or drink anything for 30 minutes following use. 112 g 3 025 Active bisacodyl (Bisacodyl EC) 5 MG EC tabletIndicatio ns:Constipation , unspecified constipation type TAKE 1 TO 2 TABLETS BY MOUTH EVERY 3 DAYS NEEDED FOR CONSTIPATION 30 tablet 1 025 Active docusate sodium (Colace) 100 MG capsule Take 1 capsule (100 mg) by mouth 2 times daily. 180 capsule 3 025 Active senna (Senokot) 8.6 MG tablet Take 2 tablets (17.2 mg) by mouth if needed at bedtime for constipation. 180 tablet 3 025 Active atorvastatin (Lipitor) 40 MG tabletIndicatio ns:Dyslipidemia Take 1 tablet (40 mg) by mouth Once per day. TAKE 1 TABLET(40 MG) BY MOUTH IN THE MORNING 90 tablet 1 025 Active mupirocin (Bactroban) 2 % ointmentIndicat ions:Impetigo, unspecified APPLY TOPICALLY TO THE AFFECTED AREA THREE TIMES DAILY FOR 5 DAYS 22 g 025 Active omeprazole (PriLOSEC) [address] capsuleIndicati ons:Gastroesoph ageal reflux disease, unspecified whether esophagitis present TAKE 1 CAPSULE(20 MG) BY MOUTH TWICE DAILY EVERY DAY BEFORE A MEAL 180 capsule 025 Active albuterol 108 (90 Base) MCG/ACT inhalerIndicati ons:Bronchitis INHALE 2 PUFFS BY MOUTH EVERY 4 HOURS NEEDED FOR SHORTNESS OF BREATH OR WHEEZING 18 g 025 Active alendronate (Fosamax) 70 MG tablet TAKE 1 TABLET BY MOUTH EVERY 7 DAYS TAKE IN THE MORNING WITH FULL GLASS OF WATER ON AN EMPTY STOMACH 12 tablet 3 Active oxyCODONE ER (OxyCONTIN) 15 MG 12 hr tabletIndicatio ns:Central abdominal pain,Lumbar post-laminectom y syndrome Take 1 tablet (15 mg) by mouth every 12 (twelve) hours for 28 days. Do not crush, chew, or split. 56 tablet 2025 Active oxyCODONE (Roxicodone) 5 MG immediate release tabletIndicatio ns:Lumbar radiculopathy,C entral abdominal pain Take 1 tablet (5 mg) by mouth every 12 (twelve) hours if needed for severe pain for up to 28 days. Do not start before September 27, 2025. 56 tablet 025 2025 Active oxyCODONE (Roxicodone) 5 MG immediate release tabletIndicatio ns:Lumbar radiculopathy,C entral abdominal pain Take 1 tablet (5 mg) by mouth every 12 (twelve) hours if needed for severe pain for up to 28 days. 56 tablet 025 2024 Discontinued(R eorder (will not trigger notification to Pharmacy)) oxyCODONE ER (OxyCONTIN) 15 MG 12 hr tabletIndicatio ns:Central abdominal pain,Lumbar post-laminectom y syndrome Take 1 tablet (15 mg) by mouth every 12 (twelve) hours for 28 days. Do not crush, chew, or split. Do not start before August 14, 2025. 56 tablet 025 2024 Discontinued(R eorder (will not trigger notification to Pharmacy)) oxyCODONE (Roxicodone) 5 MG immediate release tabletIndicatio ns:Lumbar radiculopathy,C entral abdominal pain Take 1 tablet (5 mg) by mouth every 12 (twelve) hours if needed for severe pain for up to 28 days. 56 tablet 2024 Discontinued(R eorder (will not trigger notification to Pharmacy)) Active Problems Problem Noted Date Diagnosed Date Dental caries into pulp 10/25/2024 Tooth demineralization 10/25/2024 Leukocytosis 10/18/2024 Assessment & Plan (10/18/2024 11:01 AM EST): - she does not smoke cigarettes - stable - continue monitoring with periodic lab Memory problem 07/04/2024 Assessment & Plan (04/20/2025 8:12 PM EDT): - normal clock drawing; difficulty with recall and math in Jul 2024 - no focal deficit - patient has tremor - stress reduction and continue working with behavioral health service provider - no rapid progression - schedule for MOCA testing Assessment & Plan (07/04/2024 12:15 PM EDT): [...] Central abdominal pain 03/14/2024 Assessment & Plan (07/17/2025 11:05 PM EDT): -hx of extensive abdominal surgery -evaluated by general surgeon. Patient's pain was mostly back pain. Referred to pain management. -continue judicious use of oxycodone as patient is having recurrent SBO. -proactive bowel regimen Assessment & Plan (04/08/2025 10:20 AM EDT): -hx of extensive abdominal surgery -evaluated by general surgeon. Patient's pain was mostly back pain. Referred to pain management. -continue judicious use of oxycodone as patient is having recurrent SBO. -proactive bowel regimen Assessment & Plan (07/04/2024 12:05 PM EDT): [...] use of opioids 08/25/2023 Assessment & Plan (07/27/2025 7:10 AM EDT): - continue judicious use under [employer] agreement - suggested opioid rotation, but patient was hesitant to trying a different opioid - agreed to increase oxycodone ER from 10 to 15 mg bid - continue oxycodone 5 mg bid prn - consider changing to short-acting three times daily Assessment & Plan (06/28/2024 5:38 PM EDT): - continue judicious use under [employer] agreement - suggested opioid rotation, but patient was hesitant to trying a different opioid Assessment & Plan (03/14/2024 8:51 AM EDT): - continue judicious use under [employer] agreement - suggested opioid rotation, but patient was hesitant to trying a different opioid Assessment & Plan (01/01/2024 8:53 AM EDT): - continue judicious use under [employer] agreement - suggested opioid rotation, but patient was hesitant to trying a different opioid Assessment & Plan (08/25/2023 6:34 AM EST): - continue judicious use under [employer] agreement Postoperative back pain 02/01/2023 Depression 02/01/2023 Assessment & Plan (07/27/2025 7:18 AM EDT): - PHQ-9 score 6 on 07/15/2025 - [facility] provider: TONIA - Current diagnosis by [facility] provider: Bipolar, MDD, and MELY. - Currently prescribed medications: Bupropion; escitalopram; clonazepam; quetiapine; risperidone - Will reconcile her medications Status post colostomy takedown 02/01/2023 Assessment & Plan (04/20/2025 8:04 PM EDT): - s/p exp laparotomy, LEELA, SB enterotomy repair, colostomy takedown, anastomosis descending and rectosigmoid colon, closure of colostomy site and repair of stomal hernia on 12/23/16 - SBO in Aug 2019, December 2021, April 2022, March 2024, March 2025 Assessment & Plan (03/15/2024 7:18 AM EDT): [...] in Aug 2019, December 2021, April 2022 History of small bowel obstruction 02/01/2023 Assessment & Plan (04/20/2025 8:03 PM EDT): - recurrent, 1-2 x / year - history of massive volvulus, s/p colectomy -most recent hospitalization in March 29 - April 04, 2025. No surgical intervention. Usually resolve with 1-2 days of bowel rest. -Pt states she was seen by Dr. Giles in 2021 -Discussed about side-effect of Oxycodone which may increase episode of SBO, pt verbalized understanding. Assessment & Plan (07/04/2024 12:08 PM EDT): [...] verbalized understanding. Constipation 02/01/2023 Assessment & Plan (04/20/2025 8:05 PM EDT): - Multifactorial (pt is on oxycodone) - Continue Bisacodyl and Senna - Add docusate - last SBO / severe constipation in March 2025 - last Colonoscopy 07/08/22; results showed internal hemorrhoids but otherwise normal - she is taking opioid analgesics Assessment & Plan (06/28/2024 5:37 PM EDT): [...] History of colectomy 07/22/2016 Assessment & Plan (04/20/2025 8:04 PM EDT): - s/p reduction of sigmoid volvulus and colectomy by Dr. Swan on 03/21/16 - s/p exploratory laparotomy and drainage of intraabdominal abscess on 04/03/16 Assessment & Plan (03/15/2024 7:19 AM EDT): [...] Impaired fasting glucose 09/14/2015 Assessment & Plan (04/09/2025 5:56 PM EDT): - 02/01/23 A1C 5.4% - 02/15/24 A1c 5.3% Assessment & Plan (10/11/2024 5:10 AM EST): - 02/01/23 A1C 5.4% Assessment & Plan (06/28/2024 5:38 PM EDT): - 02/01/23 A1C 5.4% Assessment & Plan (01/01/2024 8:51 AM EDT): - 02/01/23 A1C 5.4% Assessment & Plan (08/25/2023 6:23 AM EST): - 02/01/23 A1C 5.4% Chronic kidney disease, stage III (moderate) (CM S/HCC) 04/07/2015 Assessment & Plan (07/17/2025 11:06 PM EDT): Followed by Dr. Matta, tubular riveter, last appt on 03/28/25 - likely hypertensive nephrosclerosis - Hx TIMOTHY requiring short-term HD in 2016 - Avoid nephrotoxic drugs - Optimize BP management - Renal dose medication Assessment & Plan (04/20/2025 8:06 PM EDT): Followed by Dr. Matta, tubular riveter, last appt on 03/28/25 - likely hypertensive nephrosclerosis - Hx TIMOTHY requiring short-term HD in 2016 - Avoid nephrotoxic drugs - Optimize BP management - Renal dose medication Assessment & Plan (06/28/2024 5:37 PM EDT): Followed by Dr. Matta, tubular riveter, last appt on 08/01/23. - likely hypertensive nephrosclerosis - Hx TIMOTHY requiring short-term HD in 2016 - Avoid nephrotoxic drugs - Optimize BP management - Renal dose medication Assessment & Plan (03/14/2024 8:51 AM EDT): Followed by Dr. Matta, tubular riveter, last appt on 08/01/23. - likely hypertensive nephrosclerosis - Hx TIMOTHY requiring short-term HD in 2016 - Avoid nephrotoxic drugs - Optimize BP management - Renal dose medication Assessment & Plan (01/01/2024 8:50 AM EDT): Followed by Dr. Matta, tubular riveter, last appt on 08/01/23. - likely hypertensive nephrosclerosis - Hx TIMOTHY requiring short-term HD in 2016 - Avoid nephrotoxic drugs - Optimize BP management - Renal dose medication Assessment & Plan (08/25/2023 6:23 AM EST): Followed by Dr. Matta, tubular riveter, last appt on 08/01/23. - likely hypertensive nephrosclerosis - Hx TIMOTHY requiring short-term HD in 2016 - Avoid nephrotoxic drugs - Optimize BP management - Renal dose medication Assessment & Plan (02/01/2023 12:28 PM EDT): Followed by Dr. Matta, tubular riveter, last appt on 10/18/22. - likely hypertensive nephrosclerosis - Hx TIMOTHY requiring short-term HD in 2016 - Avoid nephrotoxic drugs - Optimize BP management - Renal dose medication MELY (generalized anxiety disorder) 12/12/2012 Assessment & Plan (07/27/2025 7:12 AM EDT): - Bipolar or MDD, MELY - GAD7 score 14 on 07/15/2025 - [facility] providers: [facility] - Medications are prescribed by [facility] provider - Continue clonazepam 1 mg bid - Continue risperidone 0.5 mg bid - Continue bupropion XL 300 mg daily - Continue Lexapro 10 mg daily - Continue quetiapine 400 mg daily - Treatment Hx: Previously tried Duloxetine - Work on stress reduction - She was able to contract her safety today Assessment & Plan (08/25/2023 6:31 AM EST): - Bipolar or MDD with anxiety - [facility] providers: [facility] - Medications are prescribed by [facility] provider - Continue clonazepam 1 mg bid [...] - Bipolar or MDD with anxiety - [facility] providers: [facility] - Medications are prescribed by [facility] provider - Continue clonazepam 1 mg bid [...] solution Mood disorder 07/24/2012 Assessment & Plan (07/27/2025 7:13 AM EDT): - continue current treatment plan per current [facility] provider - PHQ-9 score 6 and MELY-7 score 13 on 07/15/2025 - Current diagnoses: Bipolar disorder, depression, and anxiety Assessment & Plan (10/18/2024 11:00 AM EST): - continue current treatment plan per current [facility] provider - on BZD Assessment & Plan (06/28/2024 5:38 PM EDT): - continue current treatment plan per current [facility] provider - on BZD Assessment & Plan (03/14/2024 8:52 AM EDT): - continue current treatment plan per current [facility] provider - on BZD Assessment & Plan (01/01/2024 8:51 AM EDT): - continue current treatment plan per current [facility] provider - on BZD Assessment & Plan (08/25/2023 6:27 AM EST): - continue current treatment plan per current [facility] provider - on BZD Dyslipidemia 07/24/2012 Assessment & Plan (07/27/2025 7:07 AM EDT): - current medication: Atorvastatin 40 mg at bedtime - last lipid profile: 02/15/24; reminded about new lab order - continue working on lifestyle modifications Assessment & Plan (04/08/2025 10:20 AM EDT): - current medication: Atorvastatin 40 mg at bedtime - last lipid profile: 03/28/24 - continue working on lifestyle modifications Assessment & Plan (10/11/2024 5:10 AM EST): [...] disease 07/24/2012 Hypertension 07/24/2012 Assessment & Plan (07/17/2025 11:04 PM EDT): -Goal BP < 130/80 per ACC/AHA guideline (Treatment threshold >= 130/80) - Current medication: nifedipine 60 mg bid - Occasionally questionable medication adherence - Discussed about the importance of lifestyle modifications and medication adherence. - Continue checking home BP everyday - treatment history: diltiazem was discontinued due to intolerance; Lisinopril was self-discontinued; carvedilol was self-discontinued due to diarrhea; chlorthalidone was discontinued due to TIMOTHY; amlodipine was discontinued -Dr. Matta was planning to evaluate er with 24-hr BP monitoring if indicated in the future -Consider sleep study if refractory -Return for BP check in 3 weeks. If SBP is < 140 at home and at clinic, continue working on lifestyle modifications . If SBP is > 140 and HR > 70 both at home and in the clinic, consider clonidine patch Assessment & Plan (04/20/2025 8:11 PM EDT): -Goal BP < 130/80 per ACC/AHA guideline (Treatment threshold >= 130/80) - Current medication: nifedipine 60 mg bid - Occasionally questionable medication adherence - Discussed about the importance of lifestyle modifications and medication adherence. - Continue checking home BP everyday - treatment history: diltiazem was discontinued due to intolerance; Lisinopril was self-discontinued; carvedilol was self-discontinued due to diarrhea; chlorthalidone was discontinued due to TIMOTHY; amlodipine was discontinued -Dr. Matta was planning to evaluate er with 24-hr BP monitoring if indicated in the future -Consider sleep study if refractory -Return for BP check in 3 weeks. If SBP is < 140 at home and at clinic, continue working on lifestyle modifications . If SBP is > 140 and HR > 70 both at home and in the clinic, consider clonidine patch Assessment & Plan (10/11/2024 5:09 AM EST): [...] any problem arises Lumbar post-laminectomy syndrome 07/24/2012 Assessment & Plan (07/17/2025 11:08 PM EDT): >>ASSESSMENT AND PLAN FOR FAILED BACK SYNDROME WRITTEN ON 10/18/2024 10:59 AM BY BELA NUÑEZ MD - Prior to having surgery and prolonged hospitalization for volvulus, her pain was treated with tramadol. She was discharged with opioid analgesics after long hospital stay and care home facility. - Continue COT - COT agreement renewed - Recommended acupuncture - Recommended to explore complementary alternative medicine. - Lidoderm patch was not approved, will try prescribing again - Consider diclofenac patch, although it is NSAID Assessment & Plan (07/15/2025 6:20 AM EDT): >>ASSESSMENT AND PLAN FOR FAILED BACK SYNDROME WRITTEN ON 02/01/2023 12:30 PM BY NOHEMI MOBLEY - Prior to having surgery and prolonged hospitalization for volvulus, her pain was treated with tramadol. She was discharged with opioid analgesics after long hospital stay and care home facility. - Continue COT - COT agreement renewed and signed today 06/20/19 - Recommended acupuncture - Recommended to explore complementary alternative medicine. - Lidoderm patch was not approved, will try prescribing again - Consider diclofenac patch, although it is NSAID Assessment & Plan (07/15/2025 6:20 AM EDT): >>ASSESSMENT AND PLAN FOR FAILED BACK SYNDROME WRITTEN ON 08/25/2023 6:26 AM BY BELA NUÑEZ MD - Prior to having surgery and prolonged hospitalization for volvulus, her pain was treated with tramadol. She was discharged with opioid analgesics after long hospital stay and care home facility. - Continue COT - COT agreement renewed and signed today 06/20/19 - Recommended acupuncture - Recommended to explore complementary alternative medicine. - Lidoderm patch was not approved, will try prescribing again - Consider diclofenac patch, although it is NSAID Assessment & Plan (07/15/2025 6:20 AM EDT): >>ASSESSMENT AND PLAN FOR FAILED BACK SYNDROME WRITTEN ON 01/01/2024 8:51 AM BY BELA NUÑEZ MD - Prior to having surgery and prolonged hospitalization for volvulus, her pain was treated with tramadol. She was discharged with opioid analgesics after long hospital stay and care home facility. - Continue COT - COT agreement renewed and signed today 06/20/19 - Recommended acupuncture - Recommended to explore complementary alternative medicine. - Lidoderm patch was not approved, will try prescribing again - Consider diclofenac patch, although it is NSAID Assessment & Plan (07/15/2025 6:20 AM EDT): >>ASSESSMENT AND PLAN FOR FAILED BACK SYNDROME WRITTEN ON 03/14/2024 8:52 AM BY JOHNATHAN HOUSE - Prior to having surgery and prolonged hospitalization for volvulus, her pain was treated with tramadol. She was discharged with opioid analgesics after long hospital stay and care home facility. - Continue COT - COT agreement renewed and signed today 06/20/19 - Recommended acupuncture - Recommended to explore complementary alternative medicine. - Lidoderm patch was not approved, will try prescribing again - Consider diclofenac patch, although it is NSAID Assessment & Plan (07/15/2025 6:20 AM EDT): >>ASSESSMENT AND PLAN FOR FAILED BACK SYNDROME WRITTEN ON 10/18/2024 10:59 AM BY BELA NUÑEZ MD - Prior to having surgery and prolonged hospitalization for volvulus, her pain was treated with tramadol. She was discharged with opioid analgesics after long hospital stay and care home facility. - Continue COT - COT agreement renewed - Recommended acupuncture - Recommended to explore complementary alternative medicine. - Lidoderm patch was not approved, will try prescribing again - Consider diclofenac patch, although it is NSAID Lumbar radiculopathy 07/24/2012 Assessment & Plan (06/28/2024 5:37 PM EDT): - currently taking oxycodone under [employer] - suggested we try other treatment modalities before increasing oxycodone, such as acupuncture - patient was hesitant to make a commitment to any of the suggested modalities - continue current medications Assessment & Plan (03/14/2024 8:51 AM EDT): - currently taking oxycodone under [employer] - suggested we try other treatment modalities before increasing oxycodone, such as acupuncture - patient was hesitant to make a commitment to any of the suggested modalities - continue current medications Assessment & Plan (01/01/2024 8:48 AM EDT): - currently taking oxycodone under [employer] - suggested we try other treatment modalities before increasing oxycodone, such as acupuncture - patient was hesitant to make a commitment to any of the suggested modalities - continue current medications Obesity 07/24/2012 Assessment & Plan (07/27/2025 7:08 AM EDT): - Continue working on lifestyle modifications. - Patient would like to walk more once her pain is better controlled Dietary Recommendations: Fruits, vegetables, whole grains, protein foods, and fat-free or low-fat dairy products are healthy choices. Eat different types of protein foods in your diet. This can include seafood, lean meats, poultry, beans, peas, lentils, nuts, seeds, soy products, and eggs. Limit foods and beverages higher in added sugars, saturated fat, and sodium. Exercise Recommendations: At least 150 minutes of moderate-intensity physical activity per week, or an equivalent combination of moderate- and vigorous-intensity activity Resolved Problems Problem Noted Date Diagnosed Date Resolved Date Cellulitis 06/20/2024 06/24/2024 Diagnosis unknown 06/20/2024 07/04/2024 Bronchitis 12/07/2023 12/19/2023 Assessment & Plan (12/07/2023 11:41 AM EST): Drink plenty of fluids and rest, patient will be contacted with XRAY results, ED precautions where reviewed with patient Encounters Date Type Department Care Team Description 09/29/2025 Refill [facility] [address] [place] [phone] Bela Nuñez MD Impetigo, unspecified 09/26/2025 Refill [facility] [address] [place] [phone] Bela Nuñez MD Vitamin D deficiency 09/23/2025 Refill [facility] [address] [place] [address] Melba Savage RN Lumbar radiculopathy; Central abdominal pain 09/23/2025 Telephone [facility] [address] [place] [phone] Bela Nuñez MD Med Refill 09/11/2025 1:30 PM EST Clinical Support [facility] [address] [place] [address] Melba Savage, INÉS Long-term current use of opiate analgesic (Primary Dx) 09/11/2025 Refill [facility] [address] [place] [address] Melba Savage RN Central abdominal pain; Lumbar post-laminectomy syndrome 09/11/2025 Travel 09/11/2025 Telephone [facility] [address] [place] [phone] Bela Nuñez MD Med Refill 09/01/2025 Refill [facility] [address] [place] [address] Melba Savage RN Lumbar radiculopathy; Central abdominal pain 09/01/2025 Telephone [facility] [address] [place] [phone] Bela Nuñez MD Med Refill 08/18/2025 Refill [facility] [address] [place] [address] Bela Nuñez MD 08/13/[address] [phone] Bela Nuñez MD Med Refill 08/12/2025 Refill [facility] [address] [place] [address] Bela Nuñez MD Bronchitis; Central abdominal pain; Lumbar post-laminectomy syndrome 08/01/2025 Refill [facility] [address] [place] [address] Melba Savage RN Lumbar radiculopathy; Central abdominal pain 08/01/[address] [phone] Bela Nuñez MD Med Refill 07/31/2025 Refill [facility] [address] [place] [address] Bela Nuñez MD Bronchitis 07/16/[address] [address] Bela Nuñez MD Medication Question 07/16/[address] [address] Bela Nuñez MD Call Back Request; Medication Question 07/15/2025 1:30 PM EDT Office Visit [address] [phone] Bela Nuñez MD Primary hypertension (Primary Dx); Dyslipidemia; Stage 3a chronic kidney disease (CMS/HCC) (HCC); Central abdominal pain; Lumbar post-laminectomy syndrome; Encounter for immunization; Dietary counseling; Exercise counseling; Class 2 severe obesity due to excess calories with serious comorbidity and body mass index (BMI) of 38.0 to 38.9 in adult; Long-term current use of opiate analgesic; Chronic, continuous use of opioids; MELY (generalized anxiety disorder); Mood disorder (CMS/HCC); Current severe episode of major depressive disorder without psychotic features, unspecified whether recurrent (CMS/HCC) (HCC) 07/15/2025 Refill [facility] [address] [place] [address] Bela Nuñez MD Bronchitis 07/15/2025 Travel 07/14/2025 Telephone [facility] [address] [place] [phone] Bela Nuñez MD chart prep 07/07/2025 Refill [facility] [address] [place] [address] Melba Savage, INÉS Lumbar post-laminectomy syndrome 07/07/[address] [address] Bela Nuñez MD Med Refill 07/01/2025 Refill [facility] [address] [place] [address] Melba Savage RN Lumbar radiculopathy; Central abdominal pain 07/01/[address] [phone] Bela Nuñez MD Med Refill 06/30/2025 Refill [facility] [address] [place] [phone] Bela Nuñez MD Gastroesophageal reflux disease, unspecified whether esophagitis present from Last 3 Months Immunizations Immunization Administration Dates Next Due Hep B, adult 04/24/2007,12/15/2006,08/15/2006 Influenza High-dose Quadriva lent Preservative Free 10/19/2022,12/14/2021 Influenza injectable quadriv alent IIV4 with preservative 06/20/2019,08/02/2018 Influenza injectable quadriv alent preservative free 08/15/2023,07/09/2020,05/13/2015 Influenza, High Dose Seasona l, Preservative Free 07/15/2025,06/24/2024 Influenza, IIV3, injectable 08/24/2021,1 ,06/06/2017,07/17,07/06/2011,07/04/2010,07/11/2008 ,08/15/2006,10/08/2004,08/05/1997,1103/1996,07/02/1992 Influenza, Split (incl. amari fied surface antigen) 06/28/2013,07/24/2012 Influenza, Unspecified 10/19/2022,2021,08/24/2021,06/06,07/17/2014,07/06/2011,07/04/2010 ,07/11/2008,08/15/2006,10/08/2004,12/1996,08/07/1996,07/02/1992 Influenza, seasonal, injecta ble, preservative free 06/06/2017 Moderna Covid-19 Vaccine 12+ 12/14/2021,12/30/19 21,12/01/2020 Pfizer Covid-19 Vaccine 12+ 07/15/2025,,03/14/2024 Pneumococcal Conjugate PCV 20 03/14/2024 Pneumococcal Polysaccharide [...] Answer Date Recorded Patient Health Questionnaire-9 Score 6 07/15/2025 Patient Health Questionnaire-9 Score 6 07/15/2025 Last PHQ-9: Questionnaire Data Not on file 1 Housing Stability Answer Date Recorded What is your housing situation today? I have bertin joy 04/08/[address] you li ve. Do you have problems with any of the following? None of the above 04/08/2025 Food Insecurity Answer Date Recorded Within the past 12 months, y ou worried that your food would run out before you got money to buy more: Never True 04/08/2025 Within the past 12 months,th e food you bought just didn't last and you didn't have enough money to get more: Never True 05/2025 Transportation Answer Date Recorded In the past 12 months, has l ack of transportation kept you from medical appts, meetings, work or from getting things needed for daily living? No 04/08/2025 Utilities Answer Date Recorded In the past 12 months, has t he electric, gas, oil or water company threatened to shut off services in your home? No 04/08/2025 Depression Answer Date Recorded Patient Health Questionnaire-2 Score 2 07/15/2025 Internet Access Answer Date Recorded Internet Access Q1 Yes 04/08/2025 Internet Access Q2 Not on file 04/08/2025 Comments Unknown Sex and Gender Information Value Date Recorded Sex Assigned at Female 08/01/2022 10:14 AM EDT Legal Sex Female 10:14 AM EDT Gender Identity Female 08/01/2022 10:14 AM EDT Sexual Orientation Lesbian or Rico 08/01/2022 10 :14 AM EDT Last Filed Vital Signs Vital Sign Reading Time Taken Comments Blood Pressure 120/70 07/15/2025 1:28 PM EDT Pulse 85 07/15/2025 1:28 PM EDT Temperature 36.1 C (96.9 F) 07/15/2025 1:28 PM EDT Respiratory Rate 20 07/15/2025 1:28 PM EDT Oxygen Saturation 97% 07/15/2025 1:28 PM EDT Inhaled Oxygen Concentration - - Weight 92.1 kg (203 lb) 07/15/2025 1:28 PM EDT Height 154.9 cm (5' 1 ) 07/15/2025 1:28 PM EDT Body Mass Index 38.36 07/15/2025 1:28 PM EDT Plan of Treatment Upcoming Encounters Date Type Department Care Team (Late st Contact Info) Description 12/11/2025 1:00 PM EDT Clinical Support [facility] [address] [place] [address] Melba Savage, RN 505 [facility] [place] [address] Health Maintenance Due Date Last Done Comments RSV Patients and Patients Aged 60 years or older (1 - Risk 50-74 years 1-dose series) 2006 Zoster Vaccines (2 of 3) 09/03/2020 07/09/2020, 04/01 Dental Oral Exam 10/28/2024 04/26/2024, 05/2016, 02/21/2013, Additional history exists Dental Prophylaxis 11/30/2024 05/29/2024, 0 10/15/2015, 02/25/2015 Dental X-Ray: Bitewings 04/27/2025 04/26/20, 09/16/2015, 02/21/2013 COVID-19 Vaccine ( season) 2026 07/15/2025, 06/24/2024, 03/14/2024, Additional history exists SDOH Screening 04/08/2026 04/08/2025 Alcohol/Substance Use Screening 07/15/2026 07/15/2025 Depression Screening 07/15/2026 07/15/2025, 07/15/20 Tobacco Screening 07/15/2026 07/15/2025 Mammogram 11/29/2026 11/29/2024, 0704/2022, 04/07/2022, Additional history exists Dental X-Ray: Full Mouth 04/27/2027 04/26/2024, 09/01 Lipid Panel 02/14/2029 02/15/2024, 05/0 11/2022, 09/21/2020 DTaP/Tdap/Td Vaccines (3 - Td or Tdap) 03/14/2034 03/14/2024, 11/10/2011, 03/23/2006, Additional history exists Hepatitis B Vaccines Completed 04/24/2007, 12/15/2006, 08/15/2006 Hepatitis C Screening Completed 10/17/2019 Colonoscopy Discontinued 07/08/2022 Colorectal Cancer Screening Discontinued Pneumococcal Vaccine: 50+ Years Completed 03/14/2024, 07/06/2011, 03/23/2006 Influenza Vaccine Completed 07/15/2025, , 08/15/2023, Additional history exists CT Colonography Discontinued FIT [...] patient's age to complete this topic Meningococcal B Vaccine Aged Out No l onger eligible based on patient's age to complete [...] Comments POCT DEBBIE-14 URINE DRUG SCREEN Routine 09/11/2025 1:42 PM EST Long-term current use of opiate analgesic BI MAMMOGRAM SCREENING TOMOSYNTHESIS BILATERAL Routine 11/29/2024 12:08 PM EST Breast cancer screening by mammogram PROPHYLAXIS - ADULT Routine 05/29/2024 1 0:00 AM EDT Chronic periodontitis Dental calculus INTRAORAL - COMPLETE SERIES OF RADIOGRAPHIC IMAGES Routine 04/26/2024 11:30 AM EDT PERIODIC ORAL EVALUATION - ESTABLISHED PATIENT Routine 04/26/2024 11:30 AM EDT LIPID PANEL WITH REFLEX TO DIRECT LDL Routine 02/15/2024 8:05 AM EDT Primary hypertension HM COLONOSCOPY Routine 07/08/2022 ZZZ HISTORICAL HEPATITIS C ANTIBODY RFLX Routine 10/17/2019 12:10 PM EST from Last 3 Months or Most Recently Relevant to Health Maintenance Results * (ABNORMAL) POCT DEBBIE-14 Urine Drug Screen (09/11/2025 1:42 PM EST) THC Negative Negative Cocaine Screen, Urine Negative Negative Opiate Screen, Urine Negative Negative Methamphetamine Screen Urine Negative Negative Amphetamine Screen, Urine Negative Negative Benzodiazepines Screen, Urine Positive(A) Negative Barbiturate Screen, Urine Negative Negative Methadone Screen, Urine Negative Negative Buprenophine Screen, Urine Negative Negative TCA, Urine Negative Negative MDMA Urine Negative Negative ng/mL Oxycodone Screen, Urine Positive(A) Negative Comment:Rx Phencyclidine (PCP), Urine Negative Negative Propoxyphene, Urine Negative Negative Fentanyl, Urine Negative Negative Urine Urine specimen obtained by clean catch procedure / Unknown 09/11/2025 1:42 PM EST Narrative Melba Savage RN - 09/11/2025 1:42 PM EST . Internal Pass Control Lot# [id number] Exp: 07-08-26 Bela Nuñez MD POINT OF CARE TEST ENTER/EDIT OR DERABLES Final Result * BI Mammogram Screening Tomosynthesis Bilateral (11/29/2024 12:08 PM EST) Anatomical Region Laterality Modality Breast Bilateral Mammography 11/29/2024 12:0 8 PM EST Narrative 12/02/2024 6:30 PM EST [facility] [place] [address] Mammography Report Signed Patient: Delphine Martínez MR#: [id number] 82 : 1955 Acct:[id number] Age/Sex: 69 / F ADM Date: 11/29/24 [facility]: Bela Nuñez MD Ordering Physician: Bela Nuñez MD Results: 1Negative Date of Service: 11/29/24 Follow Up: 1 Year From [facility] ina Mammogram Procedure(s): MM tomosynthesis screening BI Accession Number(s): [id number] cc: Bela Nuñez MD EXAMINATION: MM SCREENING DIGITAL BREAST TOMOSYNTHESIS, BILATERAL CLINICAL INFORMATION: Screening. Asymptomatic. COMPARISON: Mammography: Comparison is made with available priors TECHNIQUE: Digital breast mammography with tomosynthesis is performed in both the craniocaudal and mediolateral oblique views along with computer-aided detection (CAD). FINDINGS: The breasts are heterogeneously dense, which may obscure small masses (ACR BI-RADS breast composition Category c). There are no significant masses, abnormal calcifications, or other abnormalities. MM/MM tomosynthesis screening BI IMPRESSION: No mammographic evidence of malignancy. ASSESSMENT: BI-RADS BI-RADS 1 - Negative RECOMMENDATION: Routine annual mammography screening. 1 year F/U This examination should not preclude the clinical evaluation of a suspicious palpable abnormality. This patient's information was entered into a reminder system with a target due date for their next mammogram. Electronically signed by: Francia Cohen DO 12/02/2024 06:26 PM EST Dictated By: Francia Cohen DO Signed By: <Electronically signed by Francia Cohen DO in OV> 12/02/24 1826 DD/ 1208 TD/TT: 11/29/24 1221 Physician Underwriter: Procedure Note Donotuseinterpreter, Image - [facility]/02/2024 [facility] [address] [place] [address] Mammography Report Signed Patient: Delphine Martínez AMR#: [id number] 83 : 6Acct:[id number] Age/Sex: 69 / FADM Date: 11/29/24 Loc: [facility] Attending Dr: Bela Nuñez MD Ordering Physician: Bela Nuñez MDResults: 1Negative Date of Service: 11/29/24Follow Up: 1 Year From Orig ina Mammogram Procedure(s): MM tomosynthesis screening BI Accession Number(s): [id number] cc: Bela Nuñez MD EXAMINATION: MM SCREENING DIGITAL BREAST TOMOSYNTHESIS, BILATERAL CLINICAL INFORMATION: Screening. Asymptomatic. COMPARISON: Mammography: Comparison is made with available priors TECHNIQUE: Digital breast mammography with tomosynthesis is performed in both the craniocaudal and mediolateral oblique views along with computer-aided detection (CAD). FINDINGS: The breasts are heterogeneously dense, which may obscure small masses (ACR BI-RADS breast composition Category c). There are no significant masses, abnormal calcifications, or other abnormalities. MM/MM tomosynthesis screening BI IMPRESSION: No mammographic evidence of malignancy. ASSESSMENT: BI-RADS BI-RADS 1 - Negative RECOMMENDATION: Routine annual mammography screening. 1 year F/U This examination should not preclude the clinical evaluation of a suspicious palpable abnormality. This patient's information was entered into a reminder system with a target due date for their next mammogram. Electronically signed by: Francia Cohen DO 12/02/2024 06:[address] [facility] Dictated By: Francia Cohen DO Signed By: <Electronically signed by Francia Cohen DO in OV> 12/02/24 1826 DD/ 1208 TD/TT: 11/29/24 1221 Physician Underwriter: Bela Nuñez MD IMG BI PROCEDURES Final Result * (ABNORMAL) Lipid Panel with Reflex to Direct LDL (02/15/2024 8:05 AM EDT) Triglycerides 159(H) <150 mg/dL [facility] Comment:Desirable Triglyceri de: less than 150 mg/dLBorderline High Triglyceride 150-199 mg/dLHigh Triglyceride: 200-499 mg/dLVery High Triglyceride: greater than or equal to 5OO mg/dL Cholesterol 152 <200 mg/dL [facility] Comment:Desirable Cholestero l: less than 200 mg/dLBorderline High Cholesterol: 200-239 mg/dLHigh Cholesterol: greater than 239 mg/dL LDL Cholesterol Calculated 58 <100 mg/dL [facility] Comment:Desirable LDL: less than 100 mg/dLNear Optimal/Above Optimal LDL: 110- 129 mg/dLBorderline High LDL: 130-159 mg/dLHigh LDL: 160-189 mg/dLVery High LDL: greater than or equal to 190 mg/dL HDL Cholesterol 63 >40 mg/dL [facility] Comment:Desirable HDL: great er than 40 mg/dL Note: This HDL assay may give artificially low results in patients with liver disease. Blood 02/15/2024 8:05 AM EDT 02/15/2024 11:20 AM EDT Bela Nuñez MD LAB BLOOD ORDERABLES Final Resul t [facility] [address] [place] [address] [phone] * Colonoscopy (07/08/2022) Colonoscopy Normal Normal 07/08/2022 us Historical Provider HEALTH MAINTENANCE Final Result * HEPATITIS C ANTIBODY RFLX (10/17/2019 12:10 PM EST) HEPATITIS C ANTIBODY [facility] Comment: Antibodies to HCV not detected; does not exclude early acute HCV infection. 10/17/2019 12:1 0 PM EST Bela Nuñez MD HISTORICAL/NON ORDERABLE LABS Fi nal Result [facility] [address] from Last 3 Months or Most Recently Relevant to Health Maintenance Insurance [employer] [employer] [facility] - DQ [facility] Care Teams Impregnating Helper Relationship Specialty Start Date End Date Bela Nuñez MD [address] [place] [address] PCP - General Family Medicine 10/02/18 Urban Matta MD [address] [place] [address] Nephrology 08/27/24
--- OUTSIDE RECORDS SUMMARY | 2025-09-29 12:49 | XMS_ITS | Encounter Summary ---
Author Organization [employer] Address 75 [facility] 7t [place] [address] Care Team Providers Care Assembler Garment Form Name Role Phone Bela Vasquez MD Primary Care Provider [phone] Urban Matta MD Unavailable [phone] Reason for Visit * Reason Comments Med Refill Encounter Details Date Type Department Care Team ([facility] st Contact Info) Description 04/22/2024 Refill [facility] [address] [place], [place] [phone] Bela Vasquez MD 230 [place], [place] [phone] Gastroesophageal reflux disease, unspecified whether esophagitis present [...] Description 12/11/2025 1:00 PM EDT Clinical Support [facility] [address] [place] [address] Melba Savage, INÉS [address] [place] [address] documented as of this encounter Visit Diagnoses Diagnosis Gastroesophageal reflux disease, unspecified whether esophagitis present documented in this encounter Additional Health Concerns Assessment Noted Time PHQ-9 Depression Total Score: 2 02/02/20 23 11:12 AM EDT documented as of this encounter Care Teams Assembler Garment Form Relationship Specialty Start Date End Date Bela Vasquez MD [address] [place] [address] PCP - General Family Medicine 10/02/18 Urban Matta MD [address] [place] [address] Nephrology 08/27/24 documented as of this encounter
--- OUTSIDE RECORDS SUMMARY | 2025-09-29 12:49 | XMS_ITS | Encounter Summary ---
Author Organization [employer] Address [address] [facility] 7t [place] [address] Care Team Providers Care Bundle Collector Name Role Phone Bela Vasquez MD Primary Care Provider [phone] Urban Matta MD Unavailable [phone] Reason for Visit * Reason Onset Date Comments Appointment Request 06/12/2024 Encounter Details Date Type Department Care Team ([facility] st Contact Info) Description 06/12/2024 Telephone [facility] MEDICINE [address] [place], [place] [phone] Bela Vasquez MD 230 [place], [place] [phone] Appointment Request Social History Tobacco Use Types [...] Miscellaneous Notes * Telephone Encounter - Oskar Perez - 06/12/2024 2:17 PM EDT Tc from patient calling to request a earlier time on the appt on 06/13 documented in this encounter Plan of Treatment Upcoming Encounters Date Type Department Care Team (Late st Contact Info) Description 12/11/2025 1:00 PM EDT Clinical Support [facility]EDS [address] [place] [address] Melba Savage, RN 505 [place] [address] documented as of this encounter Visit Diagnoses Not on filedocumented in this encounter Additional Health Concerns Assessment Noted Time PHQ-9 Depression Total Score: 2 02/02/20 23 11:12 AM EDT documented as of this encounter Care Teams Bundle Collector Relationship Specialty Start Date End Date Bela Vasquez MD [address] [place] [address] PCP - General Family Medicine 10/02/18 Urban Matta MD [address] [place] [address] Nephrology 08/27/24 documented as of this encounter
--- OUTSIDE RECORDS SUMMARY | 2025-09-29 12:49 | XMS_ITS | Encounter Summary ---
Author Organization [employer] Address 75 [facility] 7t [place] [address] Care Team Providers Care Manager Business Banking Name Role Phone Bela Vasquez MD Primary Care Provider [phone] Urban Matta MD Unavailable [phone] Reason for Visit * Reason Onset Date Comments Med Refill 11/11/2024 Encounter Details Date Type Department Care Team (Late st Contact Info) Description 11/11/2024 Telephone [facility] MEDICINE 230 [place], [place] [phone] Bela Vasquez MD 230 [place], [place] [phone] Med Refill Social History Tobacco Use Types [...] the past 12 months, has t he [employer], gas, oil or water company threatened to [...] 12 hr tablet To be sent to: [id number] - [place], [place] - [address] [place] [address] AT [facility] documented in this encounter Plan of Treatment Upcoming Encounters Date Type Department Care Team ([facility] st Contact Info) Description 12/11/2025 1:00 PM EDT Clinical Support [facility] MED [facility]EDS [address] [place] [address] Melba Savage, INÉS 505 [place] [address] documented as of this encounter Visit Diagnoses Not on filedocumented in this encounter Additional Health Concerns Assessment Noted Time PHQ-9 Depression Total Score: 3 06/24/20 24 1:09 PM EDT documented as of this encounter Care Teams Manager Business Banking Relationship Specialty Start Date End Date Bela Vasquez MD 230 [place] [address] PCP - General Family Medicine 10/02/18 [place] [address] [place] [address] Nephrology 08/27/24 documented as of this encounter
--- OUTSIDE RECORDS SUMMARY | 2025-09-29 12:49 | XMS_ITS | Encounter Summary ---
Author Organization [employer] Address [address] [facility] [address] 7t [place] [address] Care Team Providers Care Fire Ranger Name Role Phone Bela Vasquez MD Primary Care Provider Urban Matta MD Unavailable [phone] Encounter Details Date Type Department Care Team (Late st Contact Info) Description 11/04/2024 Telephone [facility] [address] [place], [place] [phone] Ritchie David DDS 230 [place], [place] [phone] Social History Tobacco Use Types Packs/Day Years [...] Upcoming Encounters Date Type Department Care Team ([facility] st Contact Info) Description 12/11/2025 1:00 PM EDT Clinical Support [facility] MED & PEDS [address] [place] [address] Melba Savage, INÉS 505 [place] [address] documented as of this encounter Visit Diagnoses Not on filedocumented in this encounter Additional Health Concerns Assessment Noted Time PHQ-9 Depression Total Score: 3 06/24/20 24 1:09 PM EDT documented as of this encounter Care Teams Fire Ranger Relationship Specialty Start Date End Date Bela Vasquez MD 230 [place] [address] PCP - General Family Medicine 10/02/18 Urban Matta MD [facility] [place] [address] Nephrology 08/27/24 documented as of this encounter
--- OUTSIDE RECORDS SUMMARY | 2025-09-29 12:49 | XMS_ITS | Encounter Summary ---
Author Organization [employer] Address [address] [facility] [address] 7[address] [place] [address] Care Team Providers Care Technical Aid Name Role Phone Bela Vasquez MD Primary Care Provider [phone] Urban Matta MD Unavailable [phone] Encounter Details Date Type Department Care Team ([facility] st Contact Info) Description 08/07/2024 Orders Only [facility] MEDIC[facility] [address] [place], [place] [phone] Bela Vasquez MD 230 [place], [place] [phone] Lumbar radiculopathy (Primary Dx); Central abdominal pain [...] Description 12/11/2025 1:00 PM EDT Clinical Support [facility]EDS 505 [place] [address] Melba Savage, RN 505 [place] [address] documented as of this encounter Visit Diagnoses Diagnosis Lumbar radiculopathy- Primary Thoracic or lumbosacral neuritis or radiculitis, unspecified Central abdominal pain documented in this encounter Additional Health Concerns Assessment Noted Time PHQ-9 Depression Total Score: 3 06/24/20 24 1:09 PM EDT documented as of this encounter Care Teams Technical Aid Relationship Specialty Start Date End Date Bela Vasquez MD 230 [place] [address] PCP - General Family Medicine 10/02/18 Urban Matta MD [address] [place] [address] Nephrology 08/27/24 documented as of this encounter
--- OUTSIDE RECORDS SUMMARY | 2025-09-29 12:49 | XMS_ITS | Encounter Summary ---
Author Organization [employer] Address 75 [facility] 7t [place] [address] Care Team Providers Care Agricultural Pilot Name Role Phone Bela Vasquez MD Primary Care Provider [phone] Urban Matta MD Unavailable [phone] Reason for Visit * Reason Onset Date Comments prior authoritzation 06/12/2024 Encounter Details Date Type Department Care Team (Late st Contact Info) Description 06/12/2024 Telephone [facility] [address] [place], [place] [phone] Ann Jie 230 [place] [address] prior authoritzation Social History Tobacco Use Types [...] t he electric, gas, oil or water [employer] threatened to shut off services in your [...] Upcoming Encounters Date Type Department Care Team ([facility] st Contact Info) Description 12/11/2025 1:00 PM EDT Clinical Support [facility] MED & PED[facility] 505 [place] [address] Melba Savage, RN [address] [place] [address] documented as of this encounter Visit Diagnoses Not on filedocumented in this encounter Additional Health Concerns Assessment Noted Time PHQ-9 Depression Total Score: 2 02/02/20 23 11:12 AM EDT documented as of this encounter Care Teams Agricultural Pilot Relationship Specialty Start Date End Date Bela Vasquez MD 230 [place] [address] PCP - General Family Medicine 10/02/18 [place] [address] [place] [address] Nephrology 08/27/24 documented as of this encounter
--- OUTSIDE RECORDS SUMMARY | 2025-09-29 12:49 | XMS_ITS | Encounter Summary ---
Author Organization [employer] Address 75 [facility] 7t [place] [address] Care Team Providers Care Admissions Officer Name Role Phone Bela Vasquez MD Primary Care Provider [phone] Urban Matta MD Unavailable [phone] Reason for Visit * Reason Onset Date Comments Med Refill 11/04/2024 Encounter Details Date Type Department Care Team (Late st Contact Info) Description 11/04/2024 Telephone [facility] [address] [place], [place] [phone] Bela Vasquez MD 230 [place], [place] [phone] Med Refill Social History Tobacco Use Types [...] the past 12 months, has t he [employer], gas, oil or water company threatened to [...] Upcoming Encounters Date Type Department Care Team ([facility] st Contact Info) Description 12/11/2025 1:00 PM EDT Clinical Support [facility]S [address] [place] [address] Melba Savage RN 505 [place] [address] documented as of this encounter Visit Diagnoses Not on filedocumented in this encounter Additional Health Concerns Assessment Noted Time PHQ-9 Depression Total Score: 3 06/24/20 24 1:09 PM EDT documented as of this encounter Care Teams Admissions Officer Relationship Specialty Start Date End Date Bela Vasquez MD [address] [place] [address] PCP - General Family Medicine 10/02/18 Urban Matta MD [address] [place] [address] Nephrology 08/27/24 documented as of this encounter
--- OUTSIDE RECORDS SUMMARY | 2025-09-29 12:49 | XMS_ITS | Encounter Summary ---
Author Organization [employer] Address [address] [facility] [address] 7t [place] [address] Care Team Providers Care Major Sales Associate Name Role Phone Bela Vasquez MD Primary Care Provider Urban Matta MD Unavailable [phone] Reason for Visit * Reason Onset Date Comments Appointment Request 02/10/2025 Encounter Details Date Type Department Care Team ([facility] st Contact Info) Description 02/10/2025 Telephone [facility] MEDICINE 230 [place], [place] [phone] Bela Vasquez MD 230 [place], [place] [phone] Appointment Request Social History Tobacco Use Types [...] the past 12 months, has t he [employer], gas, oil or water [employer] threatened to shut off services in your [...] * Telephone Encounter - Josh Mason - 02/10/2025 1:46 PM EDT Tc from pt requesting to reschedule appointment 02/11 as she's out of town for the week. Please return call [phone] documented in this encounter Plan of Treatment Upcoming Encounters Date Type Department Care Team ([facility] st Contact Info) Description 12/11/2025 1:00 PM EDT Clinical Support [facility] MED & PEDS 505 [place] [address] Melba Savage, INÉS 505 [place] [address] documented as of this encounter Visit Diagnoses Not on filedocumented in this encounter Additional Health Concerns Assessment Noted Time PHQ-9 Depression Total Score: 3 06/24/20 24 1:09 PM EDT documented as of this encounter Care Teams Major Sales Associate Relationship Specialty Start Date End Date Bela Vasquez MD [address] [place] [address] PCP - General Family Medicine 10/02/18 Urban Matta MD [address] [place] [address] Nephrology 08/27/24 documented as of this encounter
--- OUTSIDE RECORDS SUMMARY | 2025-09-29 12:49 | XMS_ITS | Encounter Summary ---
Author Organization [employer] Address 75 [facility] 7t [place] [address] Care Team Providers Care Giver Name Role Phone Bela Vasquez MD Primary Care Provider [phone] Urban Matta MD Unavailable [phone] Reason for Visit * Reason Comments Med Refill Encounter Details Date Type Department Care Team ([facility] st Contact Info) Description 08/13/2023 Refill [facility] MEDICINE 230 [place], [place] [phone] Bela Vasquez MD 230 [place], [place] [phone] Wheezing Social History Tobacco Use Types Packs/Day [...] Description 12/11/2025 1:00 PM EDT Clinical Support [facility] MED & PEDS 505 [place] [address] Melba Savage, INÉS 505 [place] [address] documented as of this encounter Visit Diagnoses Diagnosis Wheezing documented in this encounter Additional Health Concerns Assessment Noted Time PHQ-9 Depression Total Score: 2 02/02/20 23 11:12 AM EDT documented as of this encounter Care Teams Giver Relationship Specialty Start Date End Date Bela Vasquez MD 230 [place] [address] PCP - General Family Medicine 10/02/18 Urban Matta MD [address] [place] [address] Nephrology 08/27/24 documented as of this encounter
--- OUTSIDE RECORDS SUMMARY | 2025-09-29 12:49 | XMS_ITS | Encounter Summary ---
Author Organization [employer] Address [address] [facility] [address] 7t [place] [address] Care Team Providers Care Director Style Name Role Phone Bela Vasquez MD Primary Care Provider [phone] Urban Matta MD Unavailable [phone] Encounter Details Date Type Department Care Team ([facility] st Contact Info) Description 07/11/2024 Orders Only [facility] MEDICINE 230 [place], [place] [phone] Bela Vasquez MD 230 [place], [place] [phone] Lumbar post-laminectomy syndrome Social History Tobacco Use [...] Description 12/11/2025 1:00 PM EDT Clinical Support [facility] MED & PEDS 505 [place] [address] Melba Savage, RN 505 [place] [address] documented as of this encounter Visit Diagnoses Diagnosis Lumbar post-laminectomy syndrome Postlaminectomy syndrome, lumbar region documented in this encounter Additional Health Concerns Assessment Noted Time PHQ-9 Depression Total Score: 3 06/24/20 24 1:09 PM EDT documented as of this encounter Care Teams Director Style Relationship Specialty Start Date End Date Bela Vasquez MD 230 [place] [address] PCP - General Family Medicine 10/02/18 Urban Matta MD 0 [place] [address] Nephrology 08/27/24 documented as of this encounter
--- OUTSIDE RECORDS SUMMARY | 2025-09-29 12:49 | XMS_ITS | Encounter Summary ---
Author Organization [email or web address] Address 75 [facility] 7t [place] [address] Care Team Providers Care Professor Of Surgery Name Role Phone Bela Vasquez MD Primary Care Provider [phone] Urban Matta MD Unavailable [phone] Reason for Visit * Reason Onset Date Comments Med Refill 02/27/2025 Encounter Details Date Type Department Care Team ([facility] st Contact Info) Description 02/27/2025 Telephone [facility] MEDICINE 230 [place], [place] [phone] Bela Vasquez MD 230 [place], [place] [phone] Med Refill Social History Tobacco Use Types [...] the past 12 months, has t he [employer] gas, oil or water company threatened to [...] * Telephone Encounter - Josh Mason - 02/27/2025 11:35 AM EDT TC from pt requesting medication refill. Medications needing refill : oxyCODONE (Roxicodone) 5 MG immediate release tablet To be sent to: [id number] - [place] - [address] [place] [address] AT [facility] documented in this encounter Plan of Treatment Upcoming Encounters Date Type Department Care Team ([facility] Contact Info) Description 12/11/2025 1:00 PM EDT Clinical Support [facility] MED & PEDS 505 [facility] [place] [address] Melba Savage, INÉS 505 [facility] [address] documented as of this encounter Visit Diagnoses Not on filedocumented in this encounter Additional Health Concerns Assessment Noted Time PHQ-9 Depression Total Score: 3 06/24/20 24 1:09 PM EDT documented as of this encounter Care Teams Professor Of Surgery Relationship Specialty Start Date End Date Bela Vasquez MD 230 [place] [address] PCP - General Family Medicine 10/02/18 [place] [address] [place] [address] Nephrology 08/27/24 documented as of this encounter
--- OUTSIDE RECORDS SUMMARY | 2025-09-29 12:49 | XMS_ITS | Encounter Summary ---
Author Organization [employer] Address 75 [facility] 7t [place] [address] Care Team Providers Care Electricity Trading Analyst Name Role Phone Bela Vasquez MD Primary Care Provider [phone] Urban Matta MD Unavailable [phone] Reason for Visit * Reason Comments Med Refill Encounter Details Date Type Department Care Team ([facility] st Contact Info) Description 07/24/2023 Refill [facility] MEDICINE 230 [place], [place] [phone] Bela Vasquez MD 230 [place], [place] [phone] Social History Tobacco Use Types Packs/Day Years [...] t he electric, gas, oil or water [employer] threatened to shut off services in your [...] 12/11/2025 1:00 PM EDT Clinical Support [facility] MED & PEDS 505 [place] [address] Melba Savage, INÉS 505 [place] [address] documented as of this encounter Visit Diagnoses Not on filedocumented in this encounter Additional Health Concerns Assessment Noted Time PHQ-9 Depression Total Score: 2 02/02/20 23 11:12 AM EDT documented as of this encounter Care Teams Electricity Trading Analyst Relationship Specialty Start Date End Date Bela Vasquez MD 230 [place] [address] PCP - General Family Medicine 10/02/18 Urban Matta MD [address] [place] [address] Nephrology 08/27/24 documented as of this encounter
--- OUTSIDE RECORDS SUMMARY | 2025-09-29 12:49 | XMS_ITS | Patient Health Record ---
Author Organization [employer] Address [address] [place] [address] Care Team Providers Care Oracle Erp Architect Name Role Phone Christina WEST, Bela Primary Care Provider Ralph Lau [phone] Allergies Allergen (clinical drug ingredient) Drug/Non Drug Allergy documented on EMR Reaction Allergy Type Onset Date Status Motrin Unknown Drug Allergy Active Reason For Referral No Information Medications Medication SIG (Take, Route, Frequency, Duration) Notes Start Date End Date Status Diclofenac Sodium 1 % Gel Transdermal; Duration: 25 Active Albuterol Sulfate (2.5 MG/3ML) 0.083% Nebulization Solution 3 ml as needed Inhalation every 8 hrs Active oxyCODONE HCl 10 MG Tablet 1 tablet as n eeded Orally every 6 hrs as prn needed for pain Active oxyCODONE HCl 5 MG/5ML Solution 5 ml as needed Orally every 6 hrs Active dilTIAZem HCl ER Coated Beads 240 MG Capsule Extended Release 24 Hour Oral; Duration: 90 Active Atorvastatin Calcium 40 MG Tablet 1 tablet Orally daily at [facility] Active Vitamin D 50 MCG (1999 UT) Capsule 1 capsule Orally Once a day; Duration: 30 day(s) Active SEROquel 400 MG Tablet 1 tablet at [facility] Orally Once a day; Duration: 30 day(s) Active Flonase Allergy Relief 50 MCG/ACT Suspension 1 spray in each nostril Nasally Once a day; Duration: 30 day(s) Active KlonoPIN 1 MG Tablet 1 tablet Orally 1 t ablet in the morning and 1 tablet in the evening Active DOK 100 MG Capsule 1 capsule as needed Orally Once a day; Duration: 30 day(s) Active Prilosec 20 MG Capsule Delayed Release 2 capsule Orally twice a day; Duration: 10 day(s) Active MiraLax (colon prep) 17 GM/SCOOP Powder 1/2 of a 238 Gm bottle mixed in 1 quart of Gatorade two days before the colonoscopy. and then 1 238Gm bottle mixed with 2 quarts of Gatorade or Crystal Light the dy before the colonoscopy Orally Do the 1/2 bottle 2 days before the colonoscopy, and then begin the full bottle at 5:00 p.m. the day before the procedure; Duration: 2 days 05/31/2022 Active Dulcolax (colon prep) 5 MG Tablet Delayed Release Take 2 tablets at Noon 2 days before the colonoscopy; and then take 2 at 3:00 p.m and 2 at 7:00p.m. the day before the colonoscopy orally two tablet once two days before the colonoscopy, and then two tablets twice a day for one day before the colonoscopy; Duration: 2 days 05/31/2022 Active Immunizations Vaccine Route Administration Date Status Comme nts Influenza Unknown 09/30/2019 Administered Influenza Unknown 08/24/2021 Administered Social History Tobacco Use: Social History Observation Description Date Details (start date - stop date) Never Smoker NA - NA Social History Drugs/Alcohol: Social Info Question Answer Notes Alcohol Screen Did you have a drink containing alcohol in the past year? No Points 0 Interpretation Negative Tobacco Use: Social Info Question Answer Notes Tobacco Use/Smoking Patient is a nonsmoker Additional Details Category Social Info Options Details Miscellaneous: Marital status: single Occupation: disabled Section Notes: She does not smoke nor use a ny sig. amounts of alcohol She does not smoke nor use a ny sig. amounts of alcohol She does not smoke nor use a ny sig. amounts of alcohol Problems Problem Type SNOMED Code ICD Code Onset Dates Problem Status W/U Status Risk Notes Problem Screening for malignant neoplasm of colon (475599991) Encounter for screening for malignant neoplasm of colon (Z12.11) Active confirmed Problem Generalized abdominal pain (640967064) Abdominal pain, generalized (R10.84) Active confirmed Problem History of gastrointestinal tract bypass (867236223) History of Billroth II operation (Z98.0) Active confirmed Problem Obstruction of small intestine co-occurrent and due to peritoneal adhesions (906992146) Small bowel obstruction due to adhesions (K56.50) Active confirmed Plan Of Treatment Future Test Test Name Order Date UPPER GI ENDOSCOPY 09/16/2011 COLONOSCOPY 01/28/2020 COLONOSCOPY 05/31/2022 Insurance Providers Payer Name Payer Address Payer Phone Subscriber Number Group Number Insured Name Patient Relationship to Insured Coverage Start Date Coverage End Date [facility] [address] CORINNA Olson [phone] [id number] [employer] Self - patient is the insured 2 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 Pritchard. A followup upper endoscopy in 2010 after the surgery revealed a normal-appearing esophagus. HTN Anxiety/Depression Hyperlipidemia Asthma Denies VT,DM,CVA,renal disease Kidney stones She describes a negative col onoscopy many years ago although I don't have any record of that. [facility] with nasogastric tube decompression and resolved without surgery; she also had recurrent small bowel obstructions in December of 2021 and in April of 2022, both of which resolved with nasogastric tube decompression and without surgery. Surgical History Surgery Date(Month/Year) KENDAL WALL Back surgery Lap. Salomon fundoplication Sigmoid volvulus with temporary colostom y at [facility] in approx 2017
--- OUTSIDE RECORDS SUMMARY | 2025-09-29 12:49 | XMS_ITS | Encounter Summary ---
Author Organization [employer] Address 75 [facility] 7t [place] [address] Care Team Providers Care Development Advisor Name Role Phone Bela Vasquez MD Primary Care Provider [phone] Urban Matta MD Unavailable [phone] Reason for Visit * Reason Onset Date Comments Medication Question 03/26/2024 Encounter Details Date Type Department Care Team ([facility] st Contact Info) Description 03/26/2024 Telephone [facility] MEDICINE 230 [place], [place] [phone] Bela Vasquez MD 230 [place], [place] [phone] Medication Question Social History Tobacco Use Types [...] the 5 mg. Please contact pt at [phone]. documented in this encounter Plan of Treatment Upcoming Encounters Date Type Department Care Team (Late st Contact Info) Description 12/11/2025 1:00 PM EDT Clinical Support [facility] MED & PEDS 505 [place] [address] Melba Savage, INÉS 505 [place] [address] documented as of this encounter Visit Diagnoses Not on filedocumented in this encounter Additional Health Concerns Assessment Noted Time PHQ-9 Depression Total Score: 2 02/02/20 23 11:12 AM EDT documented as of this encounter Care Teams Development Advisor Relationship Specialty Start Date End Date Bela Vasquez MD 230 [place] [address] PCP - General Family Medicine 10/02/18 Urban Matta MD [address] [place] [address] Nephrology 08/27/24 documented as of this encounter
--- OUTSIDE RECORDS SUMMARY | 2025-09-29 12:49 | XMS_ITS | Encounter Summary ---
Author Organization [employer] Address [address] [facility] [address] 7t [place] [address] Care Team Providers Care Electric Meter Repairer Apprentice Name Role Phone Bela Vasquez MD Primary Care Provider Urban Matta MD Unavailable Encounter Details Date Type Department Care Team ([facility] st Contact Info) Description 08/06/2024 Orders Only [facility] MEDICINE 230 [place], [place] [phone] Bela Vasquez MD 230 [place], [place] [phone] Lumbar post-laminectomy syndrome Social History Tobacco Use [...] 1:00 PM EDT Clinical Support [facility] MED & PEDS 505 [place] [address] Melba Savage, RN 505 [place] [address] documented as of this encounter Visit Diagnoses Diagnosis Lumbar post-laminectomy syndrome Postlaminectomy syndrome, lumbar region documented in this encounter Additional Health Concerns Assessment Noted Time PHQ-9 Depression Total Score: 3 06/24/20 24 1:09 PM EDT documented as of this encounter Care Teams Electric Meter Repairer Apprentice Relationship Specialty Start Date End Date Bela Vasquez MD 230 [place] [address] PCP - General Family Medicine 10/02/18 Urban Matta MD 0 [place] [address] Nephrology 08/27/24 documented as of this encounter
--- OUTSIDE RECORDS SUMMARY | 2025-09-29 12:50 | XMS_ITS | Encounter Summary ---
Author Organization [employer] Address 75 [facility] 7t [place] [address] Care Team Providers Care Horticulture Supervisor Name Role Phone Bela Vasquez MD Primary Care Provider [phone] Urban Matta MD Unavailable [phone] Reason for Visit * Reason Onset Date Comments Med Refill 09/23/2025 Encounter Details Date Type Department Care Team ([facility] st Contact Info) Description 09/23/2025 Telephone [facility] MEDICINE 230 [place], [place] [phone] Bela Vasquez MD 230 [place], [place] [phone] Med Refill Social History Tobacco Use Types [...] the past 12 months, has t he [employer], gas, oil or water company threatened to [...] encounter Miscellaneous Notes * Telephone Encounter - Nidia Mcgill - 09/23/2025 2:36 PM EST TC from pt requesting medication refill. Medications needing refill : - oxyCODONE (Roxicodone) 5 MG immediate release tablet To be sent to: - [facility][id number] - [place] [address] AT [facility] documented in this encounter Plan of Treatment Upcoming Encounters Date Type Department Care Team ([facility] Contact Info) Description 12/11/2025 1:00 PM EDT Clinical Support [facility] MED & PEDS 505 [facility] [place] [address] Melba Savage, RN 505 [facility] [place] [address] documented as of this encounter Visit Diagnoses Not on filedocumented in this encounter Additional Health Concerns Assessment Noted Time PHQ-9 Depression Total Score: 6 07/15/20 25 1:30 PM EDT documented as of this encounter Care Teams Horticulture Supervisor Relationship Specialty Start Date End Date Bela Vasquez MD 230 [place] [address] PCP - General Family Medicine 10/02/18 [place] [address] [place] [address] Nephrology 08/27/24 documented as of this encounter
--- OUTSIDE RECORDS SUMMARY | 2025-09-29 12:50 | XMS_ITS | Encounter Summary ---
Author Organization [employer] Address 75 [facility] 7t [place] [address] Care Team Providers Care Treasurer Name Role Phone Bela Vasquez MD Primary Care Provider [phone] Urban Matta MD Unavailable [phone] Reason for Visit * Reason Onset Date Comments Med Refill 02/04/2025 Encounter Details Date Type Department Care Team (Late st Contact Info) Description 02/04/2025 Telephone [facility] MEDICINE 230 [place], [place] [phone] Bela Vasquez MD 230 [place], [place] [phone] Med Refill Social History Tobacco Use Types [...] the past 12 months, has t he [employer], gas, oil or water [employer] threatened to shut off services in your [...] * Telephone Encounter - Josh Mason - 02/04/2025 9:20 AM EDT TC from pt requesting medication refill. Medications needing refill : oxyCODONE ER (OxyCONTIN) 10 MG 12 hr tablet To be sent to: [facility] #[id number] - [place] - [address] [place] [address] AT [facility] documented in this encounter Plan of Treatment Upcoming Encounters Date Type Department Care Team ([facility] Contact Info) Description 12/11/2025 1:00 PM EDT Clinical Support [facility] MED & PEDS 505 [facility] [place] [address] Melba Savage, INÉS 505 [facility] [place] [address] documented as of this encounter Visit Diagnoses Not on filedocumented in this encounter Additional Health Concerns Assessment Noted Time PHQ-9 Depression Total Score: 3 06/24/20 24 1:09 PM EDT documented as of this encounter Care Teams Treasurer Relationship Specialty Start Date End Date Bela Vasquez MD 230 [place] [address] PCP - General Family Medicine 10/02/18 [place] [address] [place] [address] Nephrology 08/27/24 documented as of this encounter
--- OUTSIDE RECORDS SUMMARY | 2025-09-29 12:50 | XMS_ITS | Encounter Summary ---
Author Organization [facility] Address [address] [place] [address] Phone Care Team Providers Care Retail Asset Protection Specialist Name Role Phone Bela Vasquez MD Primary Care Provider [phone] Encounter Details Date Type Department Care Team (Late st Contact Info) Description 08/03/2022 Documentation Only [facility] [address] [place] [address] Jo Ann Ariza Social History Tobacco Use Types Packs/Day Years Used Date Smoking Tobacco: Former Cigarettes 1 Q uit: 10/02/1995 Smokeless Tobacco: Never Comments:Smoking [...] Care Team (Late st Contact Info) Description 09/29/2025 1:30 PM EST Office Visit [facility] [address] [place] [address] Urban Matta MD [address] [place] [address] [place] [address] documented as of this encounter Visit Diagnoses Not on filedocumented in this encounter Care Teams Retail Asset Protection Specialist Relationship Specialty Start Date End Date Bela Vasquez MD [address] [place] [address] PCP - General Family Medicine 01/24/24 documented as of this encounter
--- OUTSIDE RECORDS SUMMARY | 2025-09-29 12:50 | XMS_ITS | Encounter Summary ---
Author Organization [facility] Address [address] [place] [address] Phone Care Team Providers Care Cad Specialist Name Role Phone Bela Vasquez MD Primary Care Provider [phone] Encounter Details Date Type Department Care Team (Late Contact Info) Description 01/25/2024 Documentation Only [facility] [address] [place] [address] Pamela Rand [address] [place] [phone] Social History Tobacco Use Types Packs/Day Years [...] Department Care Team (Late Contact Info) Description 09/29/2025 1:30 PM EST Office Visit [facility] [address] [place] [address] Urban Matta MD [address] [place] [address] documented as of this encounter Visit Diagnoses Not on filedocumented in this encounter Care Teams Cad Specialist Relationship Specialty Start Date End Date Bela Vasquez MD [address] [place] [address] PCP - General Family Medicine 01/24/24 documented as of this encounter
--- OUTSIDE RECORDS SUMMARY | 2025-09-29 12:50 | XMS_ITS | Encounter Summary ---
Author Organization [facility] Address [address] [place] [address] Phone Care Team Providers Care Security Systems Technician Name Role Phone Bela Vasquez MD Primary Care Provider [phone] Encounter Details Date Type Department Care Team (Late Contact Info) Description 01/25/2024 Documentation Only [facility] [address] [place] [address] Pamela Rand [address] [place] [phone] Social History Tobacco Use Types Packs/Day Years [...] Visit [facility] [address] [place] [address] Urban Matta MD [address] [place] [address] documented as of this encounter Visit Diagnoses Not on filedocumented in this encounter Care Teams Security Systems Technician Relationship Specialty Start Date End Date Bela Vasquez MD [address] [place] [address] PCP - General Family Medicine 01/24/24 documented as of this encounter
--- OUTSIDE RECORDS SUMMARY | 2025-09-29 12:50 | XMS_ITS | Encounter Summary ---
Author Organization [facility] Address [address] [place] [address] Phone Care Team Providers Care Backup Administrator Name Role Phone Bela Vasquez MD Primary Care Provider [phone] Encounter Details Date Type Department Care Team (Late Contact Info) Description 09/26/2025 Documentation Only [facility] [address] [place] [address] Pamela Rand [address] [place] [phone] Social History Tobacco Use Types Packs/Day Years [...] Visit [facility] [address] [place] [address] Urban Matta MD [address] [place] [address] documented as of this encounter Visit Diagnoses Not on filedocumented in this encounter Care Teams Backup Administrator Relationship Specialty Start Date End Date Bela Vasquez MD [address] [place] [address] PCP - General Family Medicine 01/24/24 documented as of this encounter
--- OUTSIDE RECORDS SUMMARY | 2025-09-29 12:50 | XMS_ITS | Encounter Summary ---
Author Organization [facility] Address [address] [place] [address] Phone Care Team Providers Care New Client Banking Services Clerk Name Role Phone Bela Vasquez MD Primary Care Provider [phone] Encounter Details Date Type Department Care Team (Late st Contact Info) Description 08/03/2022 Documentation Only [facility] [address] [place] [address] Jo Ann Ariza Social History [...] [facility] [address] [place] [address] Urban Matta MD [address] [place] [address] [place] [address] documented as of this encounter Visit Diagnoses Not on filedocumented in this encounter Care Teams New Client Banking Services Clerk Relationship Specialty Start Date End Date Bela Vasquez MD [address] [place] [address] PCP - General Family Medicine 01/24/24 documented as of this encounter
--- OUTSIDE RECORDS SUMMARY | 2025-09-29 12:50 | XMS_ITS | Encounter Summary ---
Author Organization [employer] Address 75 [facility] 7t [place] [address] Care Team Providers Care Technical Aide Name Role Phone Bela Vasquez MD Primary Care Provider [phone] Urban Matta MD Unavailable [phone] Reason for Visit * Reason Comments Med Refill Encounter Details Date Type Department Care Team ([facility] st Contact Info) Description 09/26/2025 Refill [facility] MEDICINE 230 [place], [place] [phone] Bela Vasquez MD 230 [place], [place] [phone] Vitamin D deficiency Social History Tobacco Use Types Packs/Day Years [...] 1:00 PM EDT Clinical Support [facility] MED & PEDS 505 [place] [address] Melba Savage, INÉS 505 [place] [address] documented as of this encounter Visit Diagnoses Diagnosis Vitamin D deficiency documented in this encounter Additional Health Concerns Assessment Noted Time PHQ-9 Depression Total Score: 6 07/15/20 25 1:30 PM EDT documented as of this encounter Care Teams Technical Aide Relationship Specialty Start Date End Date Bela Vasquez MD 230 [place] [address] PCP - General Family Medicine 10/02/18 Urban Matta MD [address] [place] [address] Nephrology 08/27/24 documented as of this encounter
--- OUTSIDE RECORDS SUMMARY | 2025-09-29 12:50 | XMS_ITS | Clinical Summary ---
Author Organization [facility] [place], Address [address] [place] [address] [place] [address] Phone Care Team Providers Care Component Assembler Name Role Phone Bela Vasquez MD Primary Care Provider [phone] Allergies Active Allergy Reactions Criticality Noted Date [...] 1 tablet (60 mg total) by mouth in the morning and 1 tablet (60 mg total) in the evening. Do not crush, chew, or split. 180 tablet 3 5 Active Active Problems Problem Noted Date Diagnosed Date Chronic kidney disease, stage 2 (mild) 4 Anemia 07/14/2021 Hypertensive heart and chron ic kidney disease with heart failure and stage 1 through stage 4 chronic kidney disease, or unspecified chronic kidney disease 11/13/2019 Hypertension 11/07/2019 Encounters Date Type Department Care Team Description 09/26/2025 Documentation Only [facility] [address] [place] [phone] Pamela Rand 09/26/2025 Documentation Only [facility] [address] [place] [place] [phone] Pamela Rand 09/26/2025 Documentation Only [facility] [address] [place] [phone] Pamela Rand from Last 3 Months Immunizations Immunization Administration Dates Next Due Hepatitis B 04/24/2007,12/15/2006,08/15/2006 [...] Visit [facility] [place], [address] [facility] [place] [phone] Urban Matta MD [address] [facility] [place] [phone] Health Maintenance Due Date Last Done Comments Breast Cancer Screening 1955 Hepatitis B Vaccine Aged Out 04/24/2007, 12/15/2006, 08/15/2006 No longer eligible based on patient's age to complete this topic Pneumococcal Vaccine: 50+ Years Completed 03/14/2024, 07/06/2011, 03/23/2006 Pneumococcal Vaccine: Peds (0 to 5 Years) and At-Risk Patients (6 to 49 Years) Discontinued 03/14/2024, 07/06/2011, 03/23/2006 Influenza Vaccine Completed 07/15/2025, , 08/15/2023, Additional history exists Insurance [employer] Care Teams Component Assembler Relationship Specialty Start Date End Date Bela Vasquez MD [address] [place] [address] PCP - General Family Medicine 01/24/24
--- OUTSIDE RECORDS SUMMARY | 2025-09-29 12:50 | XMS_ITS | Encounter Summary ---
Author Organization [employer] Address 75 [facility] 7t [place] [address] Care Team Providers Care Casing Builder Name Role Phone Bela Vasquez MD Primary Care Provider [phone] Urban Matta MD Unavailable [phone] Reason for Visit * Reason Onset Date Comments Med Refill 04/29/2025 Encounter Details Date Type Department Care Team ([facility] st Contact Info) Description 04/29/2025 Telephone [facility] MEDICINE 230 [place], [place] [phone] Bela Vasquez MD 230 [place], [place] [phone] Med Refill Social History Tobacco Use Types [...] the past 12 months, has t he [employer], gas, oil or water company threatened to shut off services in your home? No 04/08/2025 Depression Answer Date Recorded Patient Health Questionnaire-2 Score 0 06/24/2024 Internet Access Answer Date Recorded Internet Access [...] encounter Miscellaneous Notes * Telephone Encounter - Levon Marte - 04/29/2025 9:31 AM EDT TC from pt requesting medication refill. Medications needing refill : oxyCODONE (Roxicodone) 5 MG immediate release tablet To be sent to: [id number] [place] - [address] [place] [address] AT [facility] documented in this encounter Plan of Treatment Upcoming Encounters Date Type Department Care Team ([facility] Contact Info) Description 12/11/2025 1:00 PM EDT Clinical Support [facility] CHC MED & PEDS [address] [place] [address] Melba Savage, INÉS [address] [facility] [place] [address] documented as of this encounter Visit Diagnoses Not on filedocumented in this encounter Additional Health Concerns Assessment Noted Time PHQ-9 Depression Total Score: 3 06/24/20 24 1:09 PM EDT documented as of this encounter Care Teams Casing Builder Relationship Specialty Start Date End Date Bela Vasquez MD 230 [place] [address] PCP - General Family Medicine 10/02/18 Urban Matta MD 2[address] [place] [address] Nephrology 08/27/24 documented as of this encounter
--- OUTSIDE RECORDS SUMMARY | 2025-09-29 12:50 | XMS_ITS | Encounter Summary ---
Author Organization [facility] Address [address] [place] [address] Phone Care Team Providers Care Industrial Illuminating Engineer Name Role Phone Bela Vasquez MD Primary Care Provider [phone] Encounter Details Date Type Department Care Team (Late st Contact Info) Description 08/03/2022 Documentation Only [facility] [address] [place] [address] Jo Ann Ariza Social History [...] Visit [facility] [address] [place] [address] Urban Matta MD [address] [place] [address] [place] [address] documented as of this encounter Visit Diagnoses Not on filedocumented in this encounter Care Teams Industrial Illuminating Engineer Relationship Specialty Start Date End Date Bela Vasquez MD [address] [place] [address] PCP - General Family Medicine 01/24/24 documented as of this encounter
--- OUTSIDE RECORDS SUMMARY | 2025-09-29 12:50 | XMS_ITS | Encounter Summary ---
Author Organization [employer] Address 75 [facility] 7t [place] [address] Care Team Providers Care Salvage Cutter Name Role Phone Bela Vasquez MD Primary Care Provider [phone] Urban Matta MD Unavailable [phone] Reason for Visit * Reason Onset Date Comments Med Refill 08/13/2025 Encounter Details Date Type Department Care Team ([facility] st Contact Info) Description 08/13/2025 Telephone [facility] MEDICINE 230 [place], [place] [phone] Bela Vasquez MD 230 [place], [place] [phone] Med Refill Social History Tobacco Use Types [...] the past 12 months, has t he [employer], gas, oil or water company threatened to [...] * Telephone Encounter - Elmo Lee - 08/13/2025 9:59 AM EST TC from pt requesting medication refill. Medications needing refill: oxyCODONE ER (OxyCONTIN) 15 MG 12 hr tablet [facility]: [id number] - [place] - [address] [place] [address] AT [facility] documented in this encounter Plan of Treatment Upcoming Encounters Date Type Department Care Team ([facility] Contact Info) Description 12/11/2025 1:00 PM EDT Clinical Support [facility] MED & PEDS 505 [facility] [place] [address] Melba Savage, INÉS [address] [place] [address] documented as of this encounter Visit Diagnoses Not on filedocumented in this encounter Additional Health Concerns Assessment Noted Time PHQ-9 Depression Total Score: 6 07/15/20 25 1:30 PM EDT documented as of this encounter Care Teams Salvage Cutter Relationship Specialty Start Date End Date Bela Vasquez MD 230 [place] [address] PCP - General Family Medicine 10/02/18 Urban Matta MD [address] [place] [address] Nephrology 08/27/24 documented as of this encounter
--- OUTSIDE RECORDS SUMMARY | 2025-09-29 12:50 | XMS_ITS | Encounter Summary ---
Author Organization [facility] Address [address] [place] [address] Phone Care Team Providers Care Geophysicist Name Role Phone Bela Vasquez MD Primary Care Provider [phone] Encounter Details Date Type Department Care Team (Late Contact Info) Description 03/24/2025 Documentation Only [facility] [address] [place] [address] Pamela Rand [address] [place] [phone] Social History Tobacco Use Types Packs/Day Years [...] Visit [facility] [address] [place] [address] Urban Matta MD [address] [place] [address] documented as of this encounter Visit Diagnoses Not on filedocumented in this encounter Care Teams Geophysicist Relationship Specialty Start Date End Date Bela Vasquez MD [address] [place] [address] PCP - General Family Medicine 01/24/24 documented as of this encounter
--- OUTSIDE RECORDS SUMMARY | 2025-09-29 12:50 | XMS_ITS | Encounter Summary ---
Author Organization [facility] Address [address] [place] [address] Phone Care Team Providers Care Restrike Hammer Operator Name Role Phone Bela Vasquez MD Primary Care Provider [phone] Encounter Details Date Type Department Care Team (Late Contact Info) Description 09/26/2025 Documentation Only [facility] [address] [place] [address] Pamela Rand [address] [place] [phone] Social History Tobacco Use Types Packs/Day Years [...] [facility] [address] [place] [address] Urban Matta MD [address] [place] [address] documented as of this encounter Visit Diagnoses Not on filedocumented in this encounter Care Teams Restrike Hammer Operator Relationship Specialty Start Date End Date Bela Vasquez MD [address] [place] [address] PCP - General Family Medicine 01/24/24 documented as of this encounter
--- OUTSIDE RECORDS SUMMARY | 2025-09-29 12:50 | XMS_ITS | Encounter Summary ---
Author Organization [employer] Address 75 [facility] 7t [place] [address] Care Team Providers Care Transition Manager Name Role Phone Bela Vasquez MD Primary Care Provider [phone] Urban Matta MD Unavailable [phone] Reason for Visit * Reason Onset Date Comments Med Refill 09/01/2025 Encounter Details Date Type Department Care Team (Late st Contact Info) Description 09/01/2025 Telephone [facility] MEDICINE 230 [place], [place] [phone] Bela Vasquez MD 230 [place], [place] [phone] Med Refill Social History Tobacco Use Types [...] the past 12 months, has t he [employer], gas, oil or water company threatened to [...] * Telephone Encounter - Levon Marte - 09/01/2025 9:19 AM EST TC from pt requesting medication refill. Medications needing refill : oxyCODONE (Roxicodone) 5 MG immediate release tablet [id number] - [place], [place] - [address] [place] [address] [facility] documented in this encounter Plan of Treatment Upcoming Encounters Date Type Department Care Team ([facility] Contact Info) Description 12/11/2025 1:00 PM EDT Clinical Support [facility] CHC MED & PEDS 505 [place] [address] Melba Savage, INÉS [address] [place] [address] documented as of this encounter Visit Diagnoses Not on filedocumented in this encounter Additional Health Concerns Assessment Noted Time PHQ-9 Depression Total Score: 6 07/15/20 25 1:30 PM EDT documented as of this encounter Care Teams Transition Manager Relationship Specialty Start Date End Date Bela Vasquez MD 230 [place] [address] PCP - General Family Medicine 10/02/18 Urban Matta MD [address] [place] [address] Nephrology 08/27/24 documented as of this encounter
--- OUTSIDE RECORDS SUMMARY | 2025-09-29 12:50 | XMS_ITS | Encounter Summary ---
Author Organization [employer] Address [address] [facility] [address] 7t [place] [address] Care Team Providers Care Gameplay Engineer Name Role Phone Bela Vasquez MD Primary Care Provider [phone] Urban Matta MD Unavailable [phone] Reason for Visit * Reason Onset Date Comments Med Refill 01/08/2025 Encounter Details Date Type Department Care Team (Late st Contact Info) Description 01/08/2025 Telephone [facility] MEDICINE 230 [place], [place] [phone] Bela Vasquez MD 230 [place], [place] [phone] Med Refill Social History Tobacco Use Types [...] the past 12 months, has t he [employer], gas, oil or water company threatened to [...] * Telephone Encounter - Marisol Moreno - 01/08/2025 11:10 AM EDT TC from pt requesting medication refill. Medications needing refill : oxyCODONE ER (OxyCONTIN) 10 MG 12 hr tablet To be sent to: [facility][id number] - [place], [place] - [address] [place] [address] AT [facility] documented in this encounter Plan of Treatment Upcoming Encounters Date Type Department Care Team ([facility] Contact Info) Description 12/11/2025 1:00 PM EDT Clinical Support [facility] MED & PEDS 505 [place] [address] Melba Savage RN 505 [facility] [place] [address] documented as of this encounter Visit Diagnoses Not on filedocumented in this encounter Additional Health Concerns Assessment Noted Time PHQ-9 Depression Total Score: 3 06/24/20 24 1:09 PM EDT documented as of this encounter Care Teams Gameplay Engineer Relationship Specialty Start Date End Date Bela Vasquez MD 230 [place] [address] PCP - General Family Medicine 10/02/18 [place] [address] [place] [address] Nephrology 08/27/24 documented as of this encounter
--- OUTSIDE RECORDS SUMMARY | 2025-09-29 12:50 | XMS_ITS | Encounter Summary ---
Author Organization [employer] Address [address] [facility] [address] 7t [place] [address] Care Team Providers Care Jd Edwards Developer Name Role Phone Bela Vasquez MD Primary Care Provider [phone] Urban Matta MD Unavailable [phone] Reason for Visit * Reason Onset Date Comments Medication Question 05/19/2025 Encounter Details Date Type Department Care Team ([facility] st Contact Info) Description 05/19/2025 Telephone [facility] MEDICINE 230 [place], [place] [phone] Bela Vasquez MD 230 [place], [place] [phone] Medication Question Social History Tobacco Use Types [...] the past 12 months, has t he [employer] gas, oil or water [employer] threatened to shut off services in your [...] encounter Miscellaneous Notes * Telephone Encounter - Jie Casas - 05/19/2025 1:57 PM EDT Tc from pt requesting to speak to someone regarding oxyCODONE ER (OxyCONTIN) 10 MG 12 hr tablet. Pt stated medication is not helping with back pain. Pt requesting a call back. Contact pt at [phone] documented in this encounter Plan of Treatment Upcoming Encounters Date Type Department Care Team (Late st Contact Info) Description 12/11/2025 1:00 PM EDT Clinical Support [facility] CH[facility] MED & PEDS 505 [place] [address] Melba Savage, RN 505 [place] [address] documented as of this encounter Visit Diagnoses Not on filedocumented in this encounter Additional Health Concerns Assessment Noted Time PHQ-9 Depression Total Score: 3 06/24/20 24 1:09 PM EDT documented as of this encounter Care Teams Jd Edwards Developer Relationship Specialty Start Date End Date Bela Vasquez MD 230 [place] [address] PCP - General Family Medicine 10/02/18 Urban Matta MD [address] [place] [address] Nephrology 08/27/24 documented as of this encounter
--- OUTSIDE RECORDS SUMMARY | 2025-09-29 12:50 | XMS_ITS | Encounter Summary ---
Author Organization [employer] Address 75 [facility] 7t [place] [address] Care Team Providers Care Carpet Journeyman Name Role Phone Bela Vasquez MD Primary Care Provider [phone] Urban Matta MD Unavailable [phone] Reason for Visit * Reason Onset Date Comments Med Refill 07/01/2025 Encounter Details Date Type Department Care Team (Late st Contact Info) Description 07/01/2025 Telephone [facility] MEDICINE 230 [place], [place] [phone] Bela Vasquez MD 230 [place], [place] [phone] Med Refill Social History Tobacco Use Types [...] the past 12 months, has t he [employer], gas, oil or water company threatened to [...] * Telephone Encounter - Levon Marte - 07/01/2025 11:26 AM EDT TC from pt requesting medication refill. Medications needing refill : oxyCODONE (Roxicodone) 5 MG immediate release tablet To be sent to: [facility][id number] [place] - [address] [place] [address] [facility] documented in this encounter Plan of Treatment Upcoming Encounters Date Type Department Care Team ([facility] Contact Info) Description 12/11/2025 1:00 PM EDT Clinical Support [facility] CH[facility] MED & PEDS 505 [facility] [address] Melba Savage, INÉS [address] [facility] [place] [address] documented as of this encounter Visit Diagnoses Not on filedocumented in this encounter Additional Health Concerns Assessment Noted Time PHQ-9 Depression Total Score: 3 06/24/20 24 1:09 PM EDT documented as of this encounter Care Teams Carpet Journeyman Relationship Specialty Start Date End Date Bela Vasquez MD 230 [place] [address] PCP - General Family Medicine 10/02/18 Urban Matta MD [address] [place] [address] Nephrology 08/27/24 documented as of this encounter
--- OUTSIDE RECORDS SUMMARY | 2025-09-29 12:50 | XMS_ITS | Encounter Summary ---
Author Organization [employer] Address 75 [facility] 7t [place] [address] Care Team Providers Care Third Shift Lieutenant Name Role Phone Bela Vasquez MD Primary Care Provider [phone] Urban Matta MD Unavailable [phone] Reason for Visit * Reason Onset Date Comments Med Refill 07/07/2025 Encounter Details Date Type Department Care Team ([facility] st Contact Info) Description 07/07/2025 Telephone [facility] MEDICINE 230 [place], [place] [phone] Bela Vasquez MD 230 [place], [place] [phone] Med Refill Social History Tobacco Use Types [...] the past 12 months, has t he [employer], gas, oil or water [employer] threatened to shut off services in your [...] encounter Miscellaneous Notes * Telephone Encounter - Kaleb Pacheco - 07/07/2025 9:53 AM EDT TC from pt requesting medication refill. Medications needing refill : oxyCODONE ER (OxyCONTIN) 10 MG 12 hr tablet To be sent to: [id number] [place], [place] - [address] [facility] documented in this encounter Plan of Treatment Upcoming Encounters Date Type Department Care Team ([facility] Contact Info) Description 12/11/2025 1:00 PM EDT Clinical Support [facility] CHC MED & PEDS [address] [place] [address] Melba Savage, RN [address] [place] [address] documented as of this encounter Visit Diagnoses Not on filedocumented in this encounter Additional Health Concerns Assessment Noted Time PHQ-9 Depression Total Score: 3 06/24/20 24 1:09 PM EDT documented as of this encounter Care Teams Third Shift Lieutenant Relationship Specialty Start Date End Date Bela Vasquez MD 230 [place] [address] PCP - General Family Medicine 10/02/18 Urban Matta MD 2[address] [place] [address] Nephrology 08/27/24 documented as of this encounter
--- OUTSIDE RECORDS SUMMARY | 2025-09-29 12:50 | XMS_ITS | Encounter Summary ---
Author Organization [employer] Address [address] [facility] [address] 7t [place] [address] Care Team Providers Care Supervisor Cloth Winding Name Role Phone Bela aVsquez MD Primary Care Provider [phone] Urban Matta MD Unavailable [phone] Reason for Visit * Reason Comments Med Refill Encounter Details Date Type Department Care Team ([facility] st Contact Info) Description 09/29/2025 Refill [facility] [address] [place] [address] [phone] Bela Vasquez MD 230 [place], [place] [phone] Impetigo, unspecified Social History Tobacco Use Types Packs/Day Years [...] the past 12 months, has t he [employer] gas, oil or water company threatened to [...] Description 12/11/2025 1:00 PM EDT Clinical Support [facility]S 505 [place] [address] Melba Savage, INÉS 505 [place] [address] documented as of this encounter Visit Diagnoses Diagnosis Impetigo, unspecified documented in this encounter Additional Health Concerns Assessment Noted Time PHQ-9 Depression Total Score: 6 07/15/20 25 1:30 PM EDT documented as of this encounter Care Teams Supervisor Cloth Winding Relationship Specialty Start Date End Date Bela Vasquez MD 230 [place] [address] PCP - General Family Medicine 10/02/18 Urban Matta MD 2[address] [place] [address] Nephrology 08/27/24 documented as of this encounter
--- OUTSIDE RECORDS SUMMARY | 2025-09-29 12:50 | XMS_ITS | Encounter Summary ---
Author Organization [employer] Address 75 [facility] 7t [place] [address] Care Team Providers Care Pricing Intern Name Role Phone Bela Vasquez MD Primary Care Provider [phone] Urban Matta MD Unavailable [phone] Reason for Visit * Reason Onset Date Comments Med Refill 09/11/2025 Encounter Details Date Type Department Care Team ([facility] st Contact Info) Description 09/11/2025 Telephone [facility] MEDICINE 230 [place], [place] [phone] Bela Vasquez MD 230 [place], [place] [phone] Med Refill Social History Tobacco Use Types [...] * Telephone Encounter - Nidia Mcgill - 09/11/2025 12:21 PM EST TC from pt requesting medication refill. Medications needing refill : - oxyCODONE ER (OxyCONTIN) 15 MG 12 hr tablet To be sent to: - [id number] - [place] [address] AT [facility] documented in this encounter Plan of Treatment Upcoming Encounters Date Type Department Care Team ([facility] Contact Info) Description 12/11/2025 1:00 PM EDT Clinical Support [facility] & [facility]EDS 505 [place] [address] Melba Savage, RN [address] [place] [address] documented as of this encounter Visit Diagnoses Not on filedocumented in this encounter Additional Health Concerns Assessment Noted Time PHQ-9 Depression Total Score: 6 07/15/20 25 1:30 PM EDT documented as of this encounter Care Teams Pricing Intern Relationship Specialty Start Date End Date Bela Vasquez MD 230 [place] [address] PCP - General Family Medicine 10/02/18 [place] [address] [place] [address] Nephrology 08/27/24 documented as of this encounter
--- OUTSIDE RECORDS SUMMARY | 2025-09-29 12:50 | XMS_ITS | Encounter Summary ---
Author Organization [facility] Address [address] [place] [address] Phone Care Team Providers Care Radio Interference Trouble Shooter Name Role Phone Bela Vasquez MD Primary Care Provider [phone] Encounter Details Date Type Department Care Team (Late Contact Info) Description 01/25/2024 Documentation Only [facility] [address] [place] [address] Pamela Rand [address] [place] [phone] Social History Tobacco Use Types Packs/Day Years [...] Visit [facility] [address] [place] [address] Urban Matta MD [address] [place] [address] documented as of this encounter Visit Diagnoses Not on filedocumented in this encounter Care Teams Radio Interference Trouble Shooter Relationship Specialty Start Date End Date Bela Vasquez MD [address] [place] [address] PCP - General Family Medicine 01/24/24 documented as of this encounter
--- OUTSIDE RECORDS SUMMARY | 2025-09-29 12:50 | XMS_ITS | Encounter Summary ---
Author Organization [facility] Address [address] [place] [address] Phone Care Team Providers Care Protohistorian Name Role Phone Bela Vasquez MD Primary Care Provider [phone] Encounter Details Date Type Department Care Team (Late st Contact Info) Description 08/03/2022 Documentation Only [facility] [address] [place] [address] Jo Ann Ariza Social History [...] Visit [facility] [address] [place] [place] [address] Urban Matta MD [address] [place] [address] [place] [address] documented as of this encounter Visit Diagnoses Not on filedocumented in this encounter Care Teams Protohistorian Relationship Specialty Start Date End Date Bela Vasquez MD [address] [place] [address] PCP - General Family Medicine 01/24/24 documented as of this encounter
--- OUTSIDE RECORDS SUMMARY | 2025-09-29 12:50 | XMS_ITS | Encounter Summary ---
Author Organization [facility] Address [address] [place] [address] Phone Care Team Providers Care Director Of Global Marketing Name Role Phone Bela Vasuqez MD Primary Care Provider Encounter Details Date Type Department Care Team (Late Contact Info) Description 01/25/2024 Documentation Only [facility] [address] [place] [address] Pamela Rand [address] [place] [phone] Social History Tobacco Use Types Packs/Day Years [...] [facility] [address] [place] [address] Urban Matta MD [address] [place] [address] documented as of this encounter Visit Diagnoses Not on filedocumented in this encounter Care Teams Director Of Global Marketing Relationship Specialty Start Date End Date Bela Vasquez MD [address] [place] [address] PCP - General Family Medicine 01/24/24 documented as of this encounter
--- OUTSIDE RECORDS SUMMARY | 2025-09-29 12:50 | XMS_ITS | Encounter Summary ---
Author Organization [facility] Address [address] [place] [address] Phone Care Team Providers Care Learning Support Aide Name Role Phone Bela Vasquez MD Primary Care Provider [phone] Encounter Details Date Type Department Care Team (Late Contact Info) Description 09/26/2025 Documentation Only [facility] [address] [place] [address] Pamela Rand [address] [place] [phone] Social History Tobacco Use Types Packs/Day Years [...] Visit [facility] [address] [place] [address] Urban Matta MD [address] [place] [address] documented as of this encounter Visit Diagnoses Not on filedocumented in this encounter Care Teams Learning Support Aide Relationship Specialty Start Date End Date Bela Vasquez MD [address] [place] [address] PCP - General Family Medicine 01/24/24 documented as of this encounter
--- OUTSIDE RECORDS SUMMARY | 2025-09-29 12:50 | XMS_ITS | Encounter Summary ---
Author Organization [employer] Address [address] [facility] [address] 7t [place] [address] Care Team Providers Care Banquet Lead Name Role Phone Bela Vasquez MD Primary Care Provider [phone] Urban Matta MD Unavailable [phone] Reason for Visit * Reason Onset Date Comments Med Refill 03/10/2025 Encounter Details Date Type Department Care Team ([facility] st Contact Info) Description 03/10/2025 Telephone [facility] MEDICINE 230 [place], [place] [phone] Bela Vasquez MD 230 [place], [place] [phone] Med Refill Social History Tobacco Use Types [...] the past 12 months, has t he [employer] gas, oil or water company threatened [...] * Telephone Encounter - Elmo Lee - 03/10/2025 1:15 PM EDT TC from pt requesting medication refill. Medications needing refill: oxyCODONE ER (OxyCONTIN) 10 MG 12 hr tablet To be sent to: [id number] - [place], [place] - [address] [place] [address] AT [facility] documented in this encounter Plan of Treatment Upcoming Encounters Date Type Department Care Team ([facility] Contact Info) Description 12/11/2025 1:00 PM EDT Clinical Support [facility] MED & PEDS 505 [facility] [place] [address] Melba Savage, INÉS 505 [place] [address] documented as of this encounter Visit Diagnoses Not on filedocumented in this encounter Additional Health Concerns Assessment Noted Time PHQ-9 Depression Total Score: 3 06/24/20 24 1:09 PM EDT documented as of this encounter Care Teams Banquet Lead Relationship Specialty Start Date End Date Sakurai, Bela, MD 230 [place] [address] PCP - General Family Medicine 10/02/18 [place] [address] [place] [address] Nephrology 08/27/24 documented as of this encounter
[2025-09-29 13:52] LABS: MANUAL DIFF FLAG NO
[2025-09-29 14:01] LABS: Hematocrit 40.8 % (37.0-47.0); Hemoglobin 12.5 g/dl (12.0-16.0); Imm Gran Abs Auto 0.03 X10*3/uL (0.00-0.03); Imm Gran Pct Auto 0.4 % (0.0-0.4); Lymphocytes Absolute Auto 1.7 X10*3/uL (1.2-4.9); Mean Corpuscular HGB Conc 30.6 g/dl (31.0-35.0); Mean Corpuscular Hemoglobin 28.6 pg (27.0-33.0); Mean Corpuscular Volume 93.4 fL (80.0-98.0); NRBC Abs Auto 0.000 X10*3/uL (0.0-0.012); NRBC Pct Auto 0.0 /100WBC (0.0-0.2); Platelet Count 385 X10*3/uL (160-400); Red Blood Count 4.37 X10*6/uL (4.20-5.50); White Blood Count 8.1 X10*3/uL (4.8-10.8)
[2025-09-29 14:25] LABS: Microalbum/Creatinine Ratio Ur 9.3 ug/mg cr (<30)
[2025-09-29 14:41] LABS: Alanine Aminotransferase 13 U/L (0-31); Albumin Level 4.4 g/dL (3.5-5.0); Alkaline Phosphatase 97 U/L (39-117); Anion Gap 11 (12-20); Aspartate Amino Transferase 21 U/L (5-31); Blood Urea Nitrogen 16 mg/dL (9-16); Calcium 10.0 mg/dL (8.4-10.2); Carbon Dioxide 30 mmol/L (22-29); Chloride 107 mmol/L (96-108); Cholesterol 208 mg/dL (<200); Estimated Glomerular Filt Rate 47; HDL Cholesterol 67 mg/dL (>40); Potassium 5.4 mmol/L (3.3-5.1); Sodium 143 mmol/L (135-145); Total Protein 7.2 g/dL (6.5-8.0); Triglycerides 170 mg/dL (<150)
[2025-09-29 15:00] LABS: Folate 8.9 ng/mL (> or = 4.0); Vitamin B12 276 pg/mL (200-900)
[2025-09-29 17:39] LABS: Reflex LDLD? No
== END 2025-09-29 11:00 | disposition home or self-care (01) ==
LOC: HO.HHCL 10:59
PROVIDERS: PCP Family Medicine; Visit Provider Family Medicine
DX: E78.5 Hyperlipidemia, unspecified (principal); R73.01 Impaired fasting glucose; D64.9 Anemia, unspecified; I10 Essential (primary) hypertension; D72.829 Elevated white blood cell count, unspecified
CPT/HCPCS: 36415; 80053; 80061; 82043; 82570; 82607; 82746; 83036; 84443; 85025

== ENCOUNTER 2025-09-30 10:57 | Outpatient (REF) | payer OTHER, SELFPAY ==
--- OUTSIDE RECORDS SUMMARY | 2025-09-30 14:51 | XMS_ITS | Encounter Summary ---
Author Organization [employer] Address [address] [place] [address] 7t [place] [address] Care Team Providers Care Computer Customer Support Specialist Name Role Phone Bela Vasquez MD Primary Care Provider [phone] Urban Matta MD Unavailable [phone] Reason for Visit * Reason Onset Date Comments Med Refill 06/08/2023 Encounter Details Date Type Department Care Team (Late st Contact Info) Description 06/08/2023 Telephone [facility] MEDICINE 230 [place], [place] [phone] Bela Vasquez MD 230 [place], [place] [phone] Med Refill Social History Tobacco Use Types [...] Description 12/11/2025 1:00 PM EDT Clinical Support [facility] MED & PEDS 505 [place] [address] Melba Savage, RN 505 [place] [address] documented as of this encounter Visit Diagnoses Not on filedocumented in this encounter Additional Health Concerns Assessment Noted Time PHQ-9 Depression Total Score: 2 02/02/20 23 11:12 AM EDT documented as of this encounter Care Teams Computer Customer Support Specialist Relationship Specialty Start Date End Date Bela Vasquez MD [address] [place] [address] PCP - General Family Medicine 10/02/18 [place] [address] [place] [address] Nephrology 08/27/24 documented as of this encounter
--- OUTSIDE RECORDS SUMMARY | 2025-09-30 14:51 | XMS_ITS | Encounter Summary ---
Author Organization [employer] Address 75 [facility] 7t [place] [address] Care Team Providers Care Ecology Professor Name Role Phone Bela Vasquez MD Primary Care Provider [phone] Urban Matta MD Unavailable [phone] Reason for Visit * Reason Comments Med Refill Encounter Details Date Type Department Care Team ([facility] st Contact Info) Description 04/22/2024 Refill [facility] MEDICINE 230 [place], [place] [phone] Bela Vasquez MD 230 [place], [place] [phone] Gastroesophageal reflux disease, unspecified whether esophagitis present [...] 12/11/2025 1:00 PM EDT Clinical Support [facility] MED & PEDS 505 [place] [address] Melba Savage, INÉS 505 [place] [address] documented as of this encounter Visit Diagnoses Diagnosis Gastroesophageal reflux disease, unspecified whether esophagitis present documented in this encounter Additional Health Concerns Assessment Noted Time PHQ-9 Depression Total Score: 2 02/02/20 23 11:12 AM EDT documented as of this encounter Care Teams Ecology Professor Relationship Specialty Start Date End Date Bela Vasquez MD [address] [place] [address] PCP - General Family Medicine 10/02/18 Urban Matta MD 2150 [place] [address] Nephrology 08/27/24 documented as of this encounter
--- OUTSIDE RECORDS SUMMARY | 2025-09-30 14:51 | XMS_ITS | Encounter Summary ---
Author Organization [employer] Address 75 [facility] 7t [place] [address] Care Team Providers Care Machine Bookkeeper Name Role Phone Bela Vasquez MD Primary Care Provider [phone] Urban Matta MD Unavailable [phone] Reason for Visit * Reason Onset Date Comments prior authoritzation 06/12/2024 Encounter Details Date Type Department Care Team (Late st Contact Info) Description 06/12/2024 Telephone [facility] ADULT DENTAL 230 [place], [place] [phone] Ann Jie 230 [place] [address] prior authoritzation Social History Tobacco Use Types [...] t he electric, gas, oil or water [employer] threatened to shut off services in your [...] Upcoming Encounters Date Type Department Care Team ([facility] st Contact Info) Description 12/11/2025 1:00 PM EDT Clinical Support [facility] MED & PEDS 505 [place] [address] Melba Savage, RN 505 [place] [address] documented as of this encounter Visit Diagnoses Not on filedocumented in this encounter Additional Health Concerns Assessment Noted Time PHQ-9 Depression Total Score: 2 02/02/20 23 11:12 AM EDT documented as of this encounter Care Teams Machine Bookkeeper Relationship Specialty Start Date End Date Bela Vasquez MD 230 [place] [address] PCP - General Family Medicine 10/02/18 [place] [address] [place] [address] Nephrology 08/27/24 documented as of this encounter
--- OUTSIDE RECORDS SUMMARY | 2025-09-30 14:51 | XMS_ITS | Encounter Summary ---
Author Organization [employer] Address 75 [facility] 7t [place] [address] Care Team Providers Care Breastfeeding Program Coordinator Name Role Phone Bela Vasquez MD Primary Care Provider [phone] Urban Matta MD Unavailable [phone] Reason for Visit * Reason Comments Med Refill Encounter Details Date Type Department Care Team ([facility] st Contact Info) Description 07/23/[address] [facility] MEDICINE 230 [place], [place] [phone] Bela Vasquez MD 230 [place], [place] [phone] Social History Tobacco Use Types Packs/Day Years [...] t he electric, gas, oil or water [employer] threatened to shut off services in your [...] [facility] MED & PEDS 505 [place] [address] Melba Savage, INÉS 505 [place] [address] documented as of this encounter Visit Diagnoses Not on filedocumented in this encounter Additional Health Concerns Assessment Noted Time PHQ-9 Depression Total Score: 2 02/02/20 23 11:12 AM EDT documented as of this encounter Care Teams Breastfeeding Program Coordinator Relationship Specialty Start Date End Date Bela Vasquez MD 230 [place] [address] PCP - General Family Medicine 10/02/18 Urban Matta MD 2150 [place] [address] Nephrology 08/27/24 documented as of this encounter
--- OUTSIDE RECORDS SUMMARY | 2025-09-30 14:51 | XMS_ITS | Encounter Summary ---
Author Organization [employer] Address 75 [facility] 7t [place] [address] Care Team Providers Care Material Control Manager Name Role Phone Bela Vasquez MD Primary Care Provider Urban Matta MD Unavailable [phone] Reason for Visit * Reason Onset Date Comments Med Refill 11/04/2024 Encounter Details Date Type Department Care Team (Late st Contact Info) Description 11/04/2024 Telephone [facility] MEDICINE 230 [place], [place] [phone] Bela Vasquez MD 230 [place], [place] [phone] Med Refill Social History Tobacco Use Types [...] the past 12 months, has t he [employer] gas, oil or water company threatened to [...] Upcoming Encounters Date Type Department Care Team ([facility] st Contact Info) Description 12/11/2025 1:00 PM EDT Clinical Support [facility] MED & PEDS 505 [place] [address] Melba Savage RN 505 [place] [address] documented as of this encounter Visit Diagnoses Not on filedocumented in this encounter Additional Health Concerns Assessment Noted Time PHQ-9 Depression Total Score: 3 06/24/20 24 1:09 PM EDT documented as of this encounter Care Teams Material Control Manager Relationship Specialty Start Date End Date Bela Vasquez MD [address] [place] [address] PCP - General Family Medicine 10/02/18 Urban Matta MD [address] [place] [address] Nephrology 08/27/24 documented as of this encounter
--- OUTSIDE RECORDS SUMMARY | 2025-09-30 14:51 | XMS_ITS | Encounter Summary ---
Author Organization [employer] Address [address] [facility] [address] 7t [place] [address] Care Team Providers Care Director Operations Name Role Phone Bela Vasquez MD Primary Care Provider [phone] Urban Matta MD Unavailable [phone] Encounter Details Date Type Department Care Team (Late st Contact Info) Description 11/04/2024 Telephone [facility] ADULT DENTAL 230 [place], [place] [phone] Ritchie David DDS 230 [place], [place] [phone] Social History Tobacco Use Types Packs/Day Years [...] Upcoming Encounters Date Type Department Care Team ([facility] st Contact Info) Description 12/11/2025 1:00 PM EDT Clinical Support [facility] MED & PEDS 505 [place] [address] Mleba Savage, INÉS 505 [place] [address] documented as of this encounter Visit Diagnoses Not on filedocumented in this encounter Additional Health Concerns Assessment Noted Time PHQ-9 Depression Total Score: 3 06/24/20 24 1:09 PM EDT documented as of this encounter Care Teams Director Operations Relationship Specialty Start Date End Date Bela Vasquez MD 230 [place] [address] PCP - General Family Medicine 10/02/18 Urban Matta MD [facility] [place] [address] Nephrology 08/27/24 documented as of this encounter
--- OUTSIDE RECORDS SUMMARY | 2025-09-30 14:51 | XMS_ITS | Encounter Summary ---
Author Organization [employer] Address [address] [place] [address] 7t [place] [address] Care Team Providers Care Handbag Operator Name Role Phone Bela Vasquez MD Primary Care Provider [phone] Urban Matta MD Unavailable [phone] Reason for Visit * Reason Onset Date Comments Med Refill 04/13/2023 Encounter Details Date Type Department Care Team (Late st Contact Info) Description 04/13/2023 Refill [facility] MEDICINE 230 [place], [place] [phone] Bela Vasquez MD 230 [place] [address] Dyslipidemia; Lumbar post-laminectomy syndrome Social History Tobacco [...] Description 12/11/2025 1:00 PM EDT Clinical Support [facility]EDS 505 [facility] [place] [phone] Melba Savage RN 505 [facility] [place] [address] documented as of this encounter Visit Diagnoses Diagnosis Dyslipidemia Other and unspecified hyperlipidemia Lumbar post-laminectomy syndrome Postlaminectomy syndrome, lumbar region documented in this encounter Additional Health Concerns Assessment Noted Time PHQ-9 Depression Total Score: 2 02/02/20 23 11:12 AM EDT documented as of this encounter Care Teams Handbag Operator Relationship Specialty Start Date End Date Bela Vasquez MD [address] [place] [address] PCP - General Family Medicine 10/02/18 [place] [address] [place] [address] Nephrology 08/27/24 documented as of this encounter
--- OUTSIDE RECORDS SUMMARY | 2025-09-30 14:51 | XMS_ITS | Encounter Summary ---
Author Organization [employer] Address 75 [facility] 7t [place] [address] Care Team Providers Care Cocoa Mill Operator Name Role Phone Bela Vasquez MD Primary Care Provider [phone] Urban Matta MD Unavailable [phone] Reason for Visit * Reason Comments Med Refill Encounter Details Date Type Department Care Team ([facility] st Contact Info) Description 07/24/2023 Refill [facility] MEDICINE 230 [place], [place] [phone] Bela Vasquez MD 230 [place], [place] [phone] Social History Tobacco Use Types Packs/Day Years [...] t he electric, gas, oil or water [employer] threatened to shut off services in your [...] 1:00 PM EDT Clinical Support [facility] MED & PEDS 505 [place] [address] Melba Savage, INÉS 505 [place] [address] documented as of this encounter Visit Diagnoses Not on filedocumented in this encounter Additional Health Concerns Assessment Noted Time PHQ-9 Depression Total Score: 2 02/02/20 23 11:12 AM EDT documented as of this encounter Care Teams Cocoa Mill Operator Relationship Specialty Start Date End Date Bela Vasquez MD 230 [place] [address] PCP - General Family Medicine 10/02/18 Urban Matta MD [address] [place] [address] Nephrology 08/27/24 documented as of this encounter
--- OUTSIDE RECORDS SUMMARY | 2025-09-30 14:51 | XMS_ITS | Encounter Summary ---
Author Organization [employer] Address 75 [facility] 7t [place] [address] Care Team Providers Care Vacuum Evaporation Operator Name Role Phone Bela Vasquez MD Primary Care Provider [phone] Urban Matta MD Unavailable [phone] Reason for Visit * Reason Comments Med Refill Encounter Details Date Type Department Care Team ([facility] st Contact Info) Description 08/13/[address] [facility] MEDICINE 230 [place], [place] [phone] Bela Vasquez MD 230 [place], [place] [phone] Wheezing Social History Tobacco Use Types Packs/Day [...] Description 12/11/2025 1:00 PM EDT Clinical Support [facility] MED & PEDS 505 [place] [address] Melba Savage, INÉS 505 [place] [address] documented as of this encounter Visit Diagnoses Diagnosis Wheezing documented in this encounter Additional Health Concerns Assessment Noted Time PHQ-9 Depression Total Score: 2 02/02/20 23 11:12 AM EDT documented as of this encounter Care Teams Vacuum Evaporation Operator Relationship Specialty Start Date End Date Bela Vasquez MD 230 [place] [address] PCP - General Family Medicine 10/02/18 Urban Matta MD [address] [place] [address] Nephrology 08/27/24 documented as of this encounter
--- OUTSIDE RECORDS SUMMARY | 2025-09-30 14:51 | XMS_ITS | Encounter Summary ---
Author Organization [employer] Address 75 [facility] 7t [place] [address] Care Team Providers Care Butter Printer Name Role Phone Bela Vasquez MD Primary Care Provider [phone] Urban Matta MD Unavailable [phone] Reason for Visit * Reason Onset Date Comments Appointment Request 06/12/2024 Encounter Details Date Type Department Care Team ([facility] st Contact Info) Description 06/12/2024 Telephone [facility] MEDICINE 230 [place], [place] [phone] Bela Vasquez MD 230 [place], [place] [phone] Appointment Request Social History Tobacco Use Types [...] 1:00 PM EDT Clinical Support [facility] & PEDS 505 [place] [address] Melba Savage, RN 505 [place] [address] documented as of this encounter Visit Diagnoses Not on filedocumented in this encounter Additional Health Concerns Assessment Noted Time PHQ-9 Depression Total Score: 2 02/02/20 23 11:12 AM EDT documented as of this encounter Care Teams Butter Printer Relationship Specialty Start Date End Date Bela Vasquez MD 230 [place] [address] PCP - General Family Medicine 10/02/18 Urban Matta MD 0 [place] [address] Nephrology 08/27/24 documented as of this encounter
--- OUTSIDE RECORDS SUMMARY | 2025-09-30 14:51 | XMS_ITS | Clinical Summary ---
Author Organization [employer] Address [address] [facility] [address] [place] [address] Care Team Providers Care Child And Youth Program Assistant Name Role Phone Bela Vasquez MD Primary Care Provider [phone] Urban Matta MD Unavailable [phone] Allergies Active Allergy Reactions Criticality Noted [...] becomes available. 2 each 1 024 Active Sodium Fluoride 1.1 % cream [place] teeth for 2 minutes, morning and night. [...] ON AN EMPTY STOMACH 12 tablet 3 025 Active oxyCODONE ER (OxyCONTIN) 15 MG 12 hr tabletIndicatio ns:Central abdominal pain,Lumbar post-laminectom y syndrome Take 1 tablet (15 mg) by mouth every 12 (twelve) hours for 28 days. Do not crush, chew, or split. 56 tablet 025 2025 Active oxyCODONE (Roxicodone) 5 MG immediate release tabletIndicatio ns:Lumbar radiculopathy,C entral abdominal pain Take 1 tablet (5 mg) by mouth every 12 (twelve) hours if needed for severe pain for up to 28 days. Do not start before September 27, 2025. 56 tablet 025 2025 Active cholecalciferol (Vitamin D3) 25 MCG (1000 UT) tabletIndicatio ns:Vitamin D deficiency TAKE 1 TABLET BY MOUTH IN THE MORNING 90 tablet 3 Active cholecalciferol (Vitamin D3) 25 MCG (1000 UT) tabletIndicatio ns:Vitamin D deficiency TAKE 1 TABLET BY MOUTH IN THE MORNING 90 tablet 3 025 2024 Discontinued oxyCODONE (Roxicodone) 5 MG immediate release tabletIndicatio [...] AM EDT): - continue judicious use under [employer]IL INST[employer]ER agreement - suggested opioid rotation, but patient was hesitant to trying a different opioid - agreed to increase oxycodone ER from 10 to 15 mg bid - continue oxycodone 5 mg bid prn - consider changing to short-acting three times daily Assessment & Plan (06/28/2024 5:38 PM EDT): - continue judicious use under [employer] INST[employer]ER agreement - suggested opioid rotation, but patient was hesitant to trying a different opioid Assessment & Plan (03/14/2024 8:51 AM EDT): - continue judicious use under [employer] INST[employer]ER agreement - suggested opioid rotation, but patient was hesitant to trying a different opioid Assessment & Plan (01/01/2024 8:53 AM EDT): - continue judicious use under [employer] INST[employer] agreement - suggested opioid rotation, but patient was hesitant to trying a different opioid Assessment & Plan (08/25/2023 6:34 AM EST): - continue judicious use under [employer] INST[employer]ER agreement Postoperative back pain 02/01/2023 Depression 02/01/2023 Assessment & Plan (07/27/2025 7:18 AM EDT): - PHQ-9 score 6 on 07/15/2025 - [facility] provider: TONIA - Current diagnosis by [facility] provider: Bipolar, MDD, and MELY. - Currently [...] 11:06 PM EDT): Followed by Dr. Matta, balance clerk, last appt on 03/28/25 - likely hypertensive nephrosclerosis - Hx TIMOTHY requiring short-term HD in 2016 - Avoid nephrotoxic drugs - Optimize BP management - Renal dose medication Assessment & Plan (04/20/2025 8:06 PM EDT): Followed by Dr. Matta, balance clerk, last appt on 03/28/25 - likely hypertensive nephrosclerosis - Hx TIMOTHY requiring short-term HD in 2016 - Avoid nephrotoxic drugs - Optimize BP management - Renal dose medication Assessment & Plan (06/28/2024 5:37 PM EDT): Followed by Dr. Matta, balance clerk, last appt on 08/01/23. - likely hypertensive nephrosclerosis - Hx TIMOTHY requiring short-term HD in 2015 - Avoid nephrotoxic drugs - Optimize BP management - Renal dose medication Assessment & Plan (03/14/2024 8:51 AM EDT): Followed by Dr. Matta, balance clerk, last appt on 08/01/23. - likely hypertensive nephrosclerosis - Hx TIMOTHY requiring short-term HD in 2015 - Avoid nephrotoxic drugs - Optimize BP management - Renal dose medication Assessment & Plan (01/01/2024 8:50 AM EDT): Followed by Dr. Matta balance clerk, last appt on 08/01/23. - likely hypertensive nephrosclerosis - Hx TIMOTHY requiring short-term HD in 2015 - Avoid nephrotoxic drugs - Optimize BP management - Renal dose medication Assessment & Plan (08/25/2023 6:23 AM EST): Followed by Dr. Matta, balance clerk, last appt on 08/01/23. - likely hypertensive nephrosclerosis - Hx TIMOTHY requiring short-term HD in 2015 - Avoid nephrotoxic drugs - Optimize BP management - Renal dose medication Assessment & Plan (02/01/2023 12:28 PM EDT): Followed by Dr. Matta, balance clerk, last appt on 10/18/22. - likely hypertensive nephrosclerosis - Hx TIMOTHY requiring short-term HD in 2016 - Avoid nephrotoxic drugs - Optimize BP management - Renal dose medication MELY (generalized anxiety disorder) 12/12/2012 Assessment & Plan (07/27/2025 7:12 AM EDT): - Bipolar or MDD, MELY - GAD7 score 14 on 07/15/2025 - [facility] providers: [facility] - Medications are prescribed by [facility] provider - Continue clonazepam 1 mg bid [...] - Bipolar or MDD with anxiety - [facility] providers: [facility] - Medications are prescribed by [facility] provider - Continue clonazepam 1 mg bid [...] - Bipolar or MDD with anxiety - [facility] providers: [facility] - Medications are prescribed by [facility] provider - Continue clonazepam 1 mg bid [...] - continue current treatment plan per current [facility] provider - PHQ-9 score 6 and MELY-7 score 13 on 07/15/2025 - Current diagnoses: Bipolar disorder, depression, and anxiety Assessment & Plan (10/18/2024 11:00 AM EST): - continue current treatment plan per current [facility] provider - on BZD Assessment & Plan (06/28/2024 5:38 PM EDT): - continue current treatment plan per current [facility] provider - on BZD Assessment & Plan (03/14/2024 8:52 AM EDT): - continue current treatment plan per current [facility] provider - on BZD Assessment & Plan (01/01/2024 8:51 AM EDT): - continue current treatment plan per current [facility] provider - on BZD Assessment & Plan (08/25/2023 6:27 AM EST): - continue current treatment plan per current [facility] provider - on BZD Dyslipidemia [...] WRITTEN ON 10/18/2024 10:59 AM BY BELA VASQUEZ MD - Prior to having surgery and prolonged hospitalization for volvulus, her pain was treated with tramadol. She was discharged with opioid analgesics after long hospital stay and group home facility. - Continue COT - COT [...] opioid analgesics after long hospital stay and group home facility. - Continue COT - COT agreement renewed and signed today 06/20/19 - Recommended acupuncture - Recommended to explore complementary alternative medicine. - Lidoderm patch was not approved, will try prescribing again - Consider diclofenac patch, although it is NSAID Assessment & Plan (07/15/2025 6:20 AM EDT): >>ASSESSMENT AND PLAN FOR FAILED BACK SYNDROME WRITTEN ON 08/25/2023 6:26 AM BY BELA VASQUEZ MD - Prior to having surgery and prolonged hospitalization for volvulus, her pain was treated with tramadol. She was discharged with opioid analgesics after long hospital stay and group home facility. - Continue COT - COT agreement renewed and signed today 06/20/19 - Recommended acupuncture - Recommended to explore complementary alternative medicine. - Lidoderm patch was not approved, will try prescribing again - Consider diclofenac patch, although it is NSAID Assessment & Plan (07/15/2025 6:20 AM EDT): >>ASSESSMENT AND PLAN FOR FAILED BACK SYNDROME WRITTEN ON 01/01/2024 8:51 AM BY BELA VASQUEZ MD - Prior to having surgery and prolonged hospitalization for volvulus, her pain was treated with tramadol. She was discharged with opioid analgesics after long hospital stay and group home facility. - Continue COT - COT [...] opioid analgesics after long hospital stay and group home facility. - Continue COT - COT agreement renewed and signed today 06/20/19 - Recommended acupuncture - Recommended to explore complementary alternative medicine. - Lidoderm patch was not approved, will try prescribing again - Consider diclofenac patch, although it is NSAID Assessment & Plan (07/15/2025 6:20 AM EDT): >>ASSESSMENT AND PLAN FOR FAILED BACK SYNDROME WRITTEN ON 10/18/2024 10:59 AM BY BELA VASQUEZ MD - Prior to having surgery and prolonged hospitalization for volvulus, her pain was treated with tramadol. She was discharged with opioid analgesics after long hospital stay and group home facility. - Continue COT - COT agreement renewed - Recommended acupuncture - Recommended to explore complementary alternative medicine. - Lidoderm patch was not approved, will try prescribing again - Consider diclofenac patch, although it is NSAID Lumbar radiculopathy 07/24/2012 Assessment & Plan (06/28/2024 5:37 PM EDT): - 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 - suggested we try other treatment modalities before increasing oxycodone, such as acupuncture - patient was hesitant to make a commitment to any of the suggested modalities - continue current medications Assessment & Plan (03/14/2024 8:51 AM EDT): - 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 - suggested we try other treatment modalities before increasing oxycodone, such as acupuncture - patient was hesitant to make a commitment to any of the suggested modalities - continue current medications Assessment & Plan (01/01/2024 8:48 AM EDT): - 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 - suggested we try other treatment modalities [...] Encounters Date Type Department Care Team Description 09/30/2025 Telephone [facility] [address] [place] [phone] Bela Vasquez MD Error (VOID this visit) 09/30/2025 Orders Only [address] [address] Bela Vasquez MD Hyperkalemia (Primary Dx) 09/29/2025 Results Follow-Up [address] [address] Bela Vasquez MD Lipid Panel with Reflex to Direct LDL, Albumin, Random Urine W/Creatinine, Hemoglobin A1c, Additional followed-up results: 4 09/29/2025 Refill [facility] [address] [place] [phone] Bela Vasquez MD Impetigo, unspecified 09/26/[address] [address] Bela Vasquez MD Vitamin D deficiency 09/23/2025 Refill [facility] [address] [place] [address] Melba Savage, RN Lumbar radiculopathy; Central abdominal pain 09/23/[address] [address] Bela Vasquez MD Med Refill 09/11/2025 1:30 PM EST Clinical Support [facility] [address] [place] [address] Melba Savage, RN Long-term current use of opiate analgesic (Primary Dx) 09/11/2025 Refill [facility] [address] [place] [address] Melba Savage, RN Central abdominal pain; Lumbar post-laminectomy syndrome 09/11/2025 Travel 09/11/2025 Telephone [facility] [address] [place] [phone] Bela Vasquez MD Med Refill 09/01/2025 Refill [facility] [address] [place] [address] Melba Savage, RN Lumbar radiculopathy; Central abdominal pain 09/01/2025 Telephone [facility] [address] [place] [phone] Bela Vasquez MD Med Refill 08/18/2025 Refill [facility] [address] [place] [phone] Bela Vasquez MD 08/13/2025 Telephone [facility] [address] [place] [phone] Bela Vasquez MD Med Refill 08/12/2025 Refill [facility] [address] [place] [address] Bela Vasquez MD Bronchitis; Central abdominal pain; Lumbar post-laminectomy syndrome 08/01/2025 Refill [facility] [address] [place] [address] Melba Savage, RN Lumbar radiculopathy; Central abdominal pain 08/01/2025 Telephone [facility] [address] [place] [phone] Bela Vasquez MD Med Refill 07/31/2025 Refill [facility] [address] [place] [address] Bela Vasquez MD Bronchitis 07/16/[address] [address] Bela Vasquez MD Medication Question 07/16/[address] [address] Bela Vasquez MD Call Back Request; Medication Question 07/15/2025 1:30 PM EDT Office Visit [address] [address] Bela Vasquez MD Primary hypertension (Primary Dx); Dyslipidemia; Stage [...] unspecified whether recurrent (CMS/HCC) (HCC) 07/15/2025 Refill [facility] [address] [place] [address] Bela Vasquez MD Bronchitis 07/15/2025 Travel 07/14/[address] [address] Bela Vasquez MD chart prep 07/07/2025 Refill [facility] [address] [place] [address] Melba Savage RN Lumbar post-laminectomy syndrome 07/07/[address] [address] Bela Vasquez MD Med Refill 07/01/2025 Refill [facility] [address] [place] [address] eMlba Savage, INÉS Lumbar radiculopathy; Central abdominal pain 07/01/[address] [address] Bela Vasquez MD Med Refill from Last 3 Months Immunizations Immunization Administration Dates Next Due Hep B, adult 04/24/2007,12/15/2006,08/15/2006 Influenza High-dose Quadriva lent Preservative Free 10/19/2022,12/14/2021 Influenza injectable quadriv alent IIV4 with preservative 06/20/2019,08/02/2018 Influenza injectable quadriv alent preservative free 08/15/2023,07/09/2020,05/13/2015 Influenza, High Dose Seasona l, Preservative Free 07/15/2025,06/24/2024 Influenza, IIV3, injectable 08/24/2021,1 ,06/06/2017,07/17,07/06/2011,07/04/2010,07/11/2008 ,08/15/2006,10/08/2004,08/05/1997,03/1996,07/02/1992 Influenza, Split (incl. amari fied surface antigen) 06/28/2013,07/24/2012 Influenza, Unspecified 10/19/2022,2021,08/24/2021,06/06,07/17/2014,07/06/2011,07/04/2010 ,07/11/2008,08/15/2006,10/08/2004,12/1996,08/07/1996,07/02/1992 Influenza, seasonal, injecta ble, preservative free 06/06/2017 Moderna Covid-19 Vaccine 12+ 12/14/2021,12/30/19 21,12/01/2020 Pfizer Covid-19 Vaccine 12+ 07/15/2025, 4,03/14/2024 Pneumococcal Conjugate PCV 20 03/14/2024 Pneumococcal Polysaccharide [...] [facility] [address] [place] [address] Melba Savage, RN [address] [place] [address] Health Maintenance Due Date Last Done Comments RSV Patients and Patients Aged 60 years or older (1 - Risk 50-74 years 1-dose series) 2006 Zoster Vaccines (2 of 3) 09/03/2020 07/09/2020, 04/01 Dental Oral Exam 10/28/2024 04/26/2024, 05/2016, 02/21/2013, Additional history exists Dental Prophylaxis 11/30/2024 05/29/2024, 0 10/15/2015, 02/25/2015 Dental X-Ray: Bitewings 04/27/2025 04/26/20 24, 09/16/2015, 02/21/2013 COVID-19 Vaccine ( season) 2026 07/15/2025, 06/24/2024, 03/14/2024, Additional history exists SDOH Screening 04/08/2026 04/08/2025 Alcohol/Substance Use Screening 07/15/2026 07/15/2025 Depression Screening 07/15/2026 07/15/2025, 07/15/20 Tobacco Screening 07/15/2026 07/15/2025 Mammogram 11/29/2026 11/29/2024, 07/0 04/2022, 04/07/2022, Additional history exists Dental X-Ray: Full Mouth 04/27/2027 04/26/2024, 09/01 Lipid Panel 09/29/2030 09/29/2025, 01/30, 02/01/2023, Additional history exists DTaP/Tdap/Td Vaccines (3 - Td or Tdap) [...] Procedure Name Priority Date/Time Associated Diagnosis Comments COMPREHENSIVE METABOLIC PANEL Routine 09/29/2025 11:04 AM EST Primary hypertension CBC WITH AUTO DIFFERENTIAL Routine 09/29/2025 11:04 AM EST Anemia, unspecified type Leukocytosis, unspecified type VITAMIN B12/FOLATE, SERUM PANEL Routine 09/29/2025 11:04 AM EST Anemia, unspecified type TSH W/REFLEX TO FT4 Routine 09/29/2025 1 1:04 AM EST Anemia, unspecified type HEMOGLOBIN A1C Routine 09/29/2025 11:04 AM EST Impaired fasting glucose LIPID PANEL WITH REFLEX TO DIRECT LDL Routine 09/29/2025 11:04 AM EST Dyslipidemia ALBUMIN, RANDOM URINE W/CREATININE Routine 09/29/2025 11:03 AM EST Primary hypertension POCT DEBBIE-14 URINE DRUG SCREEN Routine 09/11/2025 [...] ESTABLISHED PATIENT Routine 04/26/2024 11:30 AM EDT HM COLONOSCOPY Routine 07/08/2022 ZZZ HISTORICAL HEPATITIS C ANTIBODY RFLX Routine 10/17/2019 12:10 PM EST from Last 3 Months or Most Recently Relevant to Health Maintenance Results * Vitamin B12 (Cobalamin) and Folate Panel, Serum (09/29/2025 11:04 AM EST) Vitamin B12 276 200 - 900 pg/mL [facility] Comment:NORMAL 200-900 PG/ML INDETERMINATE 160-199 PG/ML DEFICIENT < 160 PG/ML Folate 8.9 > or = 4.0 ng/mL [facility] Comment:Reference Values:> o r = 4.0 ng/mL< 4.0 ng/mL suggests folate deficiency Methotrexate, aminopterin and folinic acid(leucovorin) are chemotherapeutic agents whose molecularstructures are similar to folate; therefore, the Architectfolate assay cannot be used for patients using these drugs. Blood 09/29/2025 11:0 4 AM EST 09/29/2025 1:47 PM EST us Bela Vasquez MD LAB BLOOD ORDERABLES Final Resul t Performing Organization Address City/[facility]/ZIP Co de Phone Number [facility] [address] [place] [phone] * TSH with Reflex to Free T4 (09/29/2025 11:04 AM EST) TSH reflex Free T4 1.80 0.32 - 4.0 uIU/mL [facility] Blood 09/29/2025 11:0 4 AM EST 09/29/2025 1:47 PM EST us Bela Vasquez MD LAB BLOOD ORDERABLES Final Resul t Performing Organization Address [facility] Co de Phone Number [facility] [address] [place] [phone] * (ABNORMAL) Lipid Panel with Reflex to Direct LDL (09/29/2025 11:04 AM EST) Triglycerides 170(H) <150 mg/dL [facility] Comment:Desirable Triglyceri de: less than 150 mg/dLBorderline High Triglyceride 150-199 mg/dLHigh Triglyceride: 200-499 mg/dLVery High Triglyceride: greater than or equal to 5OO mg/dL Cholesterol 208(H) <200 mg/dL [facility] Comment:Desirable Cholestero l: less than 200 mg/dLBorderline High Cholesterol: 200-239 mg/dLHigh Cholesterol: greater than 239 mg/dL LDL Cholesterol Calculated 107(H) <100 mg/dL [facility] Comment:Desirable LDL: less than 100 mg/dLNear Optimal/Above Optimal LDL: 110- 129 mg/dLBorderline High LDL: 130-159 mg/dLHigh LDL: 160-189 mg/dLVery High LDL: greater than or equal to 190 mg/dL HDL Cholesterol 67 >40 mg/dL [facility] Comment:Desirable HDL: great er than 40 mg/dL Note: This HDL assay may give artificially low results in patients with liver disease. Blood 09/29/2025 11:0 4 AM EST 09/29/2025 1:47 PM EST us Bela Vasquez MD LAB BLOOD ORDERABLES Final Resul t [facility] [address] [place] [phone] * (ABNORMAL) CBC auto differential (09/29/2025 11:04 AM EST) White Blood Count 8.1 4.8 - 10.8 X10*3/uL [facility] Red Blood Count 4.37 4.20 - 5.50 X10*6/uL [facility] Hemoglobin 12.5 12.0 - 16.0 g/dl [facility] Hematocrit 40.8 37.0 - 47.0 % [facility] Mean Corpuscular Volume 93.4 80.0 - 98.0 fL [facility] Mean Corpuscular Hemoglobin 28.6 27.0 - 33.0 pg [facility] Mean Corpuscular HGB Conc 30.6(L) 31.0 - 35.0 g/dl [facility] Red Cell Distribution Width 12.4 11.0 - 16.0 % [facility] Platelet Count 385 160 - 400 X10*3/uL [facility] Mean Platelet Volume 9.6 9.4 - 12.3 fL [facility] Neutrophils Percent Auto 70.2 45 - 73 % [facility] Imm Gran Pct Auto 0.4 0.0 - 0.4 % [facility] Lymphocytes Percent Auto 20.7 20 - 40 % [facility] Monocytes Percent Auto 6.3 2 - 11 % [facility] Eosinophils Percent Auto 1.8 0 - 4 % [facility] Basophils Percent Auto 0.6 0 - 2 % [facility] NRBC Pct Auto 0.0 0.0 - 0.2 /100WBC [facility] Neutrophils Absolute Auto 5.7 2.0 - 8.3 x10*3/uL [facility] Imm Gran Abs Auto 0.03 0.00 - 0.03 X10*3/uL [facility] Lymphocytes Absolute Auto 1.7 1.2 - 4.9 X10*3/uL [facility] Monocytes Absolute Auto 0.5 0.1 - 1.2 X10*3/uL [facility] Eosinophils Absolute Auto 0.2 0.0 - 0.4 X10*3/uL [facility] Basophils Absolute Auto 0.1 0.0 - 0.2 X10*3/uL [facility] NRBC Abs Auto 0.000 0.0 - 0.012 X10*3/uL [facility] Blood Venous blood specimen / Unknown 09/29/2025 11:04 AM EST 09/29/2025 1:47 PM EST us Bela Vasquez MD LAB BLOOD ORDERABLES Final Resul t Performing Organization Address City/[facility]/ZIP Co de Phone Number [facility] [address] [place] [phone] * Hemoglobin A1c (09/29/2025 11:04 AM EST) Hemoglobin A1c 5.5 <6.0 % [facility] Comment:Hemoglobin A1C Refer ence Range Adults: 4.8 - 6.0 % Non diabetic: < 6.0 % Goal: < 7.0 %Additional Action Suggested: > 8.0 %Note: Hemoglobin A1c results are invalid for patients with abnormal amounts of HbF. Blood transfusions may impact the HbA1c concentration in the patient sample. Estimated Average Glucose 111 mg/dL [facility] Comment:eAG = Estimated ave rage glucose which is %A1C expressed asaverage glucose, using the formula of the [id number] Glucose study (ADAG), Diabetes Care, Vol.31,#8,May. 2007 Blood Venous blood specimen / Unknown 09/29/2025 11:04 AM EST 09/29/2025 1:47 PM EST Bela Vasquez MD LAB BLOOD ORDERABLES Final Resul t [facility] [address] [place] [phone] * (ABNORMAL) Comprehensive Metabolic Panel (09/29/2025 11:04 AM EST) Sodium 143 135 - 145 mmol/L [facility] Potassium 5.4(H) 3.3 - 5.1 mmol/L [facility] Chloride 107 96 - 108 mmol/L [facility] Carbon Dioxide 30(H) 22 - 29 mmol/L [facility] Anion Gap 11(L) 12 - 20 [facility] Urea Nitrogen (BUN) 16 9 - 16 mg/dL [facility] Creatinine, Serum 1.15 0.5 - 1.4 mg/dL [facility] Estimated Glomerular Filt Rate 47 [facility] Comment:Chronic Kidney Disea se: Estimated GFR < 60 mL/min/[id number] Kidney Disease: Estimated GFR < 15 mL/min/1.73m2 Glucose 115 60 - 115 mg/dL [facility] Calcium 10.0 8.4 - 10.2 mg/dL [facility] Bilirubin, Total 0.2 0.0 - 1.0 mg/dL [facility] Aspartate Amino Transferase 21 5 - 31 U/L [facility] Alanine Aminotransferase 13 0 - 31 U/L [facility] Total Protein 7.2 6.5 - 8.0 g/dL [facility] Albumin Level 4.4 3.5 - 5.0 g/dL [facility] Alkaline Phosphatase 97 39 - 117 U/L [facility] Blood Venous blood specimen / Unknown 09/29/2025 11:04 AM EST 09/29/2025 1:47 PM EST us Bela Vasquez MD LAB BLOOD ORDERABLES Final Resul t [facility] [address] [place] [phone] * Albumin, Random Urine W/Creatinine (09/29/2025 11:03 AM EST) Creatinine, Urine 159.69 mg/dL [facility] Microalbumin Urine 15.0 mg/L [facility] Microalbum Creatinine Ratio Ur 9.3 <30 ug/mg cr [facility] Comment:Albumin/Creatinine R atio Reference Ranges: Normal: < 30 ug/mg creatinine Microalbuminuria: 30 - 300 ug/mg creatinineClinical Albuminuria: > 300 ug/mg creatinine Urine 09/29/2025 11:0 3 AM EST 09/29/2025 1:34 PM EST Bela Vasquez MD LAB URINE ORDERABLES Final Resul t Performing Organization Address City/State/[facility] Co de Phone Number [facility] [address] [place] [phone] * (ABNORMAL) POCT DEBBIE-14 Urine Drug Screen [...] PM EST . Internal Pass Control Lot# [id number] Exp: 07-08-26 Bela Vasquez MD POINT OF CARE TEST ENTER/EDIT OR DERABLES Final Result * BI Mammogram Screening Tomosynthesis Bilateral (11/29/2024 12:08 PM EST) Anatomical Region Laterality Modality Breast Bilateral Mammography 11/29/2024 12:0 8 PM EST Narrative 12/02/2024 6:30 PM EST [address] [place] [address] Mammography Report Signed Patient: Delphine Martínez MR#: [id number] 83 : 1955 Acct:[id number] Age/Sex: 69 / F ADM Date: 11/29/24 Loc: HO.MAMMO Attending Dr: Bela Vasquez MD Ordering Physician: Bela Vasquez MD Results: 1Negative Date of Service: 11/29/24 Follow Up: 1 Year From Orig inal Mammogram Procedure(s): MM tomosynthesis screening BI Accession Number(s): [id number] cc: Bela Vasquez MD EXAMINATION: MM SCREENING DIGITAL BREAST TOMOSYNTHESIS, [...] 12/02/24 1826 DD/ 1208 TD/TT: 11/29/24 1221 [employer]ap[employer] Consultant: Procedure Note Donotuseinterpreter, Image - 12/02/[address] [place] [address] Mammography Report Signed Patient: Delphine Martínez AMR#: [id number] 83 : 6Acct:[id number] Age/Sex: 69 / FADM Date: 11/29/24 Loc: HO.MAMMO Attending Dr: Bela Vasquez MD Ordering Physician: Bela Vasquez MDResults: 1Negative Date of Service: 11/29/24Follow Up: 1 Year From Orig inal Mammogram Procedure(s): MM tomosynthesis screening BI Accession Number(s): [id number] cc: Bela Vasquez MD EXAMINATION: MM SCREENING DIGITAL BREAST TOMOSYNTHESIS, [...] by: Francia Cohen DO 12/02/2024 06:26 PM [facility] Dictated By: Francia Cohen DO Signed By: <Electronically signed by Francia Cohen DO in OV> 12/02/24 1826 DD/ 1208 TD/TT: 11/29/24 1221 [employer]ap[employer] Consultant: Bela Vasquez MD IMG BI PROCEDURES Final Result * Hm Colonoscopy (07/08/2022) Colonoscopy Normal Normal 07/08/2022 Historical Provider HEALTH MAINTENANCE Final Result * HEPATITIS C ANTIBODY RFLX (10/17/2019 12:10 PM EST) HEPATITIS C ANTIBODY NONREACTIVE NONREACTIVE [facility] Comment: Antibodies to HCV not detected; does not exclude early acute HCV infection. 10/17/2019 12:1 0 PM EST Bela Vasquez MD HISTORICAL/NON ORDERABLE LABS Fi nal Result [facility] [address] [place] [address], from Last 3 Months or Most Recently Relevant to Health Maintenance Insurance [employer] [employer] - DQ [facility] Care Teams Child And Youth Program Assistant Relationship Specialty Start Date End Date Bela Vasquez MD [address] [place] [address] PCP - General Family Medicine 10/02/18 [place] [address] [place] [address] Nephrology 08/27/24
--- OUTSIDE RECORDS SUMMARY | 2025-09-30 14:51 | XMS_ITS | Encounter Summary ---
Author Organization [employer] Address 75 [facility] 7t [place] [address] Care Team Providers Care Ground Source Heat Pump Technician Name Role Phone Bela Vasquez MD Primary Care Provider [phone] Urban Matta MD Unavailable [phone] Reason for Visit * Reason Onset Date Comments Med Refill 05/13/2024 Encounter Details Date Type Department Care Team (Late st Contact Info) Description 05/13/2024 Telephone [facility] MEDICINE 230 [place], [place] [phone] Bela Vasquez MD 230 [place], [place] [phone] Med Refill Social History Tobacco Use Types [...] 12 hr tablet To be sent to: [id number] AT [facility] documented in this encounter Plan of Treatment Upcoming Encounters Date Type Department Care Team ([facility] st Contact Info) Description 12/11/2025 1:00 PM EDT Clinical Support [facility] MED & PEDS 505 [place] [address] Melba Savage, RN 505 [place] [address] documented as of this encounter Visit Diagnoses Not on filedocumented in this encounter Additional Health Concerns Assessment Noted Time PHQ-9 Depression Total Score: 2 02/02/20 23 11:12 AM EDT documented as of this encounter Care Teams Ground Source Heat Pump Technician Relationship Specialty Start Date End Date Bela Vasquez MD 230 [place] [address] PCP - General Family Medicine 10/02/18 Urban Matta MD [address] [place] [address] Nephrology 08/27/24 documented as of this encounter
--- OUTSIDE RECORDS SUMMARY | 2025-09-30 14:51 | XMS_ITS | Encounter Summary ---
Author Organization [employer] Address [address] [place] [address] 7t [place] [address] Care Team Providers Care Stem Roller Name Role Phone Bela Vasquez MD Primary Care Provider [phone] Urban Matta MD Unavailable [phone] Reason for Visit * Reason Onset Date Comments Med Refill 05/11/2023 Encounter Details Date Type Department Care Team (Late st Contact Info) Description 05/11/2023 Telephone [facility] MEDICINE 230 [place], [place] [phone] Bela Vasquez MD 230 [place], [place] [phone] Med Refill Social History Tobacco Use Types [...] Miscellaneous Notes * Telephone Encounter - Marisol Moreon - 05/11/2023 10:37 AM EDT Tc from pt requesting med refill for medication oxyCODONE (Roxicodone) 5 MG immediate release tablet oxyCODONE ER (OxyCONTIN) 10 MG 12 hr tablet documented in this encounter Plan of Treatment Upcoming Encounters Date Type Department Care Team (Late st Contact Info) Description 12/11/2025 1:00 PM EDT Clinical Support [facility] MED & PEDS 505 [place] [address] Melba Savage, RN 505 [place] [address] documented as of this encounter Visit Diagnoses Not on filedocumented in this encounter Additional Health Concerns Assessment Noted Time PHQ-9 Depression Total Score: 2 02/02/20 23 11:12 AM EDT documented as of this encounter Care Teams Stem Roller Relationship Specialty Start Date End Date Bela Vasquez MD 230 [place] [address] PCP - General Family Medicine 10/02/18 Urban Matta MD [address] [place] [address] Nephrology 08/27/24 documented as of this encounter
--- OUTSIDE RECORDS SUMMARY | 2025-09-30 14:51 | XMS_ITS | Encounter Summary ---
Author Organization [employer] Address 75 [facility] 7t [place] [address] Care Team Providers Care Orchestrator Name Role Phone Bela Vasquez MD Primary Care Provider [phone] Urban Matta MD Unavailable [phone] Reason for Visit * Reason Onset Date Comments Med Refill 11/11/2024 Encounter Details Date Type Department Care Team (Late st Contact Info) Description 11/11/2024 Telephone [facility] MEDICINE 230 [place], [place] [phone] Bela Vasquez MD 230 [place], [place] [phone] Med Refill Social History Tobacco Use Types [...] the past 12 months, has t he [employer], gas, oil or water company threatened to [...] 12 hr tablet To be sent to: [facility][id number] - [place], [place] - [address] [place] [address] AT [facility] documented in this encounter Plan of Treatment Upcoming Encounters Date Type Department Care Team ([facility] st Contact Info) Description 12/11/2025 1:00 PM EDT Clinical Support [facility] CHC MED & PEDS 505 [place] [address] Melba Savage, INÉS 505 [place] [address] documented as of this encounter Visit Diagnoses Not on filedocumented in this encounter Additional Health Concerns Assessment Noted Time PHQ-9 Depression Total Score: 3 06/24/20 24 1:09 PM EDT documented as of this encounter Care Teams Orchestrator Relationship Specialty Start Date End Date Bela Vasquez MD 230 [place] [address] PCP - General Family Medicine 10/02/18 [place] [address] [place] [address] Nephrology 08/27/24 documented as of this encounter
--- OUTSIDE RECORDS SUMMARY | 2025-09-30 14:51 | XMS_ITS | Encounter Summary ---
Author Organization [employer] Address [address] [place] [address] 7t [place] [address] Care Team Providers Care Director Revenue Name Role Phone Bela Vasquez MD Primary Care Provider [phone] Urban Matta MD Unavailable [phone] Reason for Visit * Reason Onset Date Comments Med Refill 03/15/2023 Encounter Details Date Type Department Care Team (Late st Contact Info) Description 03/15/2023 Telephone [facility] MEDICINE 230 [place], [place] [phone] Bela Vasquez MD 230 [place], [place] [phone] Med Refill Social History Tobacco Use Types [...] Description 12/11/2025 1:00 PM EDT Clinical Support [facility] MED & PEDS 505 [place] [address] Melba Savage, RN 505 [place] [address] documented as of this encounter Visit Diagnoses Not on filedocumented in this encounter Additional Health Concerns Assessment Noted Time PHQ-9 Depression Total Score: 2 02/02/20 23 11:12 AM EDT documented as of this encounter Care Teams Director Revenue Relationship Specialty Start Date End Date Bela Vasquez MD [address] [place] [address] PCP - General Family Medicine 10/02/18 [place] [address] [place] [address] Nephrology 08/27/24 documented as of this encounter
--- OUTSIDE RECORDS SUMMARY | 2025-09-30 14:51 | XMS_ITS | Encounter Summary ---
Author Organization [employer] Address [address] [facility] [address] 7t [place] [address] Care Team Providers Care Blueprint Trimmer Name Role Phone Bela Vasquez MD Primary Care Provider Urban Matta MD Unavailable [phone] Reason for Visit * Reason Onset Date Comments Med Refill 08/13/2024 Encounter Details Date Type Department Care Team (Late st Contact Info) Description 08/13/2024 Telephone [facility] MEDICINE 230 [place], [place] [phone] Bela Vasquez MD 230 [place], [place] [phone] Med Refill Social History Tobacco Use Types [...] 12 hr tablet To be sent to: [facility][id number] documented in this encounter Plan of Treatment Upcoming Encounters Date Type Department Care Team (Late st Contact Info) Description 12/11/2025 1:00 PM EDT Clinical Support [facility] MED & PEDS 505 [place] [address] Melba Savage RN 505 [place] [address] documented as of this encounter Visit Diagnoses Not on filedocumented in this encounter Additional Health Concerns Assessment Noted Time PHQ-9 Depression Total Score: 3 06/24/20 24 1:09 PM EDT documented as of this encounter Care Teams Blueprint Trimmer Relationship Specialty Start Date End Date Bela Vasquez MD 230 [place] [address] PCP - General Family Medicine 10/02/18 Urban Matta MD [address] [place] [address] Nephrology 08/27/24 documented as of this encounter
--- OUTSIDE RECORDS SUMMARY | 2025-09-30 14:52 | XMS_ITS | Encounter Summary ---
Author Organization [employer] Address [address] [facility] [address] 7t [place] [address] Care Team Providers Care Wet Washer Machine Name Role Phone Bela Vasquez MD Primary Care Provider [phone] Urban Matta MD Unavailable [phone] Reason for Visit * Reason Onset Date Comments Appointment Request 02/10/2025 Encounter Details Date Type Department Care Team ([facility] st Contact Info) Description 02/10/2025 Telephone [facility] MEDICINE 230 [place], [place] [phone] Bela Vasquez MD 230 [place], [place] [phone] Appointment Request Social History Tobacco Use Types [...] the past 12 months, has t he [employer], gas, oil or water [employer] threatened to shut off services in your [...] Miscellaneous Notes * Telephone Encounter - Josh Masno - 02/10/2025 1:46 PM EDT Tc from pt requesting to reschedule appointment 02/11 as she's out of town for the week. Please return call [phone] documented in this encounter Plan of Treatment Upcoming Encounters Date Type Department Care Team ([facility] st Contact Info) Description 12/11/2025 1:00 PM EDT Clinical Support [facility] MED & PEDS 505 [place] [address] Melba Savage, INÉS 505 [place] [address] documented as of this encounter Visit Diagnoses Not on filedocumented in this encounter Additional Health Concerns Assessment Noted Time PHQ-9 Depression Total Score: 3 06/24/20 24 1:09 PM EDT documented as of this encounter Care Teams Wet Washer Machine Relationship Specialty Start Date End Date Bela Vasquez MD [address] [place] [address] PCP - General Family Medicine 10/02/18 Urban Matta MD [address] [place] [address] Nephrology 08/27/24 documented as of this encounter
--- OUTSIDE RECORDS SUMMARY | 2025-09-30 14:52 | XMS_ITS | Encounter Summary ---
Author Organization [employer] Address 75 [facility] 7t [place] [address] Care Team Providers Care Field Sales Trainer Name Role Phone Bela Vasquez MD Primary Care Provider [phone] Urban Matta MD Unavailable [phone] Reason for Visit * Reason Onset Date Comments Med Refill 09/01/2025 Encounter Details Date Type Department Care Team (Late st Contact Info) Description 09/01/2025 Telephone [facility] MEDICINE 230 [place], [place] [phone] Bela Vasquez MD 230 [place], [place] [phone] Med Refill Social History Tobacco Use Types [...] the past 12 months, has t he [employer], gas, oil or water company threatened to [...] immediate release tablet [facility] be sent to: [id number] - [place], [place] - [address] [place] [address] AT [facility] documented in this encounter Plan of Treatment Upcoming Encounters Date Type Department Care Team ([facility] Contact Info) Description 12/11/2025 1:00 PM EDT Clinical Support [facility] CH[facility] MED & PEDS 505 [place] [address] Melba Savage, INÉS [address] [facility] [place] [address] documented as of this encounter Visit Diagnoses Not on filedocumented in this encounter Additional Health Concerns Assessment Noted Time PHQ-9 Depression Total Score: 6 07/15/20 25 1:30 PM EDT documented as of this encounter Care Teams Field Sales Trainer Relationship Specialty Start Date End Date Bela Vasquez MD 230 [place] [address] PCP - General Family Medicine 10/02/18 Urban Matta MD [address] [place] [address] Nephrology 08/27/24 documented as of this encounter
--- OUTSIDE RECORDS SUMMARY | 2025-09-30 14:52 | XMS_ITS | Encounter Summary ---
Author Organization [employer] Address [address] [facility] [address] 7t [place] [address] Care Team Providers Care Director Style Name Role Phone Bela Vasquez MD Primary Care Provider [phone] Urban Matta MD Unavailable [phone] Encounter Details Date Type Department Care Team ([facility] st Contact Info) Description 09/30/2025 Orders Only [facility] MEDICINE 230 [place], [place] [phone] Bela Vasquez MD 230 [place], [place] [phone] Hyperkalemia (Primary Dx) Social History Tobacco Use Types [...] Description 12/11/2025 1:00 PM EDT Clinical Support [facility] CH[facility] MED & PEDS 505 [place] [address] Melba Savage, INÉS 505 [place] [address] Scheduled Orders Name Type Priority Associated Diagnoses Orde r Schedule Basic Metabolic Panel Lab Routine Hyperkalemia Expected: 09/30/2025 (Approximate), Expires: 09/30/2026 documented as of this encounter Visit Diagnoses Diagnosis Hyperkalemia- Primary Hyperpotassemia documented in this encounter Additional Health Concerns Assessment Noted Time PHQ-9 Depression Total Score: 6 07/15/20 25 1:30 PM EDT documented as of this encounter Care Teams Director Style Relationship Specialty Start Date End Date Bela Vasquez MD [address] [place] [address] PCP - General Family Medicine 10/02/18 Urban Matta MD 2150 [place] [address] Nephrology 08/27/24 documented as of this encounter
--- OUTSIDE RECORDS SUMMARY | 2025-09-30 14:52 | XMS_ITS | Encounter Summary ---
Author Organization [employer] Address 75 [facility] 7t [place] [address] Care Team Providers Care Specialist Employee Labor Relations Name Role Phone Bela Vasquez MD Primary Care Provider [phone] Urban Matta MD Unavailable [phone] Reason for Visit * Reason Onset Date Comments Error (VOID this visit) 09/30/2025 Encounter Details Date Type Department Care Team (Late st Contact Info) Description 09/30/2025 Telephone [facility] MEDICINE 230 [place] [address] Bela Vasquez MD 230 [place] [address] Error (VOID this visit) Social History Tobacco Use Types Packs/Day Years [...] Description 12/11/2025 1:00 PM EDT Clinical Support [facility] MED & PEDS 505 [place] [address] Melba Savage, RN 505 [place] [address] documented as of this encounter Visit Diagnoses Not on filedocumented in this encounter Additional Health Concerns Assessment Noted Time PHQ-9 Depression Total Score: 6 07/15/20 25 1:30 PM EDT documented as of this encounter Care Teams Specialist Employee Labor Relations Relationship Specialty Start Date End Date Bela Vasquez MD 230 [place] [address] PCP - General Family Medicine 10/02/18 Urban Matta MD [address] [place] [address] Nephrology 08/27/24 documented as of this encounter
--- OUTSIDE RECORDS SUMMARY | 2025-09-30 14:52 | XMS_ITS | Encounter Summary ---
Author Organization [employer] Address 75 [facility] 7t [place] [address] Care Team Providers Care Sock Liner Name Role Phone Bela Vasquez MD Primary Care Provider [phone] Urban Matta MD Unavailable [phone] Reason for Visit * Reason Comments Med Refill Encounter Details Date Type Department Care Team ([facility] st Contact Info) Description 09/26/2025 Refill [facility] MEDICINE 230 [place], [place] [phone] Bela Vasquez MD 230 [place], [place] [phone] Vitamin D deficiency Social History Tobacco Use [...] [facility] MED & PEDS 505 [place] [address] Melba Savage, INÉS 505 [place] [address] documented as of this encounter Visit Diagnoses Diagnosis Vitamin D deficiency documented in this encounter Additional Health Concerns Assessment Noted Time PHQ-9 Depression Total Score: 6 07/15/20 25 1:30 PM EDT documented as of this encounter Care Teams Sock Liner Relationship Specialty Start Date End Date Bela Vasquez MD 230 [place] [address] PCP - General Family Medicine 10/02/18 Urban Matta MD [address] [place] [address] Nephrology 08/27/24 documented as of this encounter
--- OUTSIDE RECORDS SUMMARY | 2025-09-30 14:52 | XMS_ITS | Encounter Summary ---
Author Organization [facility] Address [address] [place] [address] Phone Care Team Providers Care Testing And Regulating Technician Name Role Phone Bela Vasquez MD Primary Care Provider [phone] Encounter Details Date Type Department Care Team (Late Contact Info) Description 09/26/2025 Documentation Only [facility] [address] [place] [address] Pamela Rand [address] [place] [phone] Social History Tobacco Use Types Packs/Day Years [...] Department Care Team (Late Contact Info) Description 11/14/2025 2:30 PM EST Office Visit [facility] [address] [place] [address] Urban Matta MD [address] [place] [address] documented as of this encounter Visit Diagnoses Not on filedocumented in this encounter Care Teams Testing And Regulating Technician Relationship Specialty Start Date End Date Bela Vasquez MD [address] [place] [address] PCP - General Family Medicine 01/24/24 documented as of this encounter
--- OUTSIDE RECORDS SUMMARY | 2025-09-30 14:52 | XMS_ITS | Encounter Summary ---
Author Organization [employer] Address 75 [facility] 7t [place] [address] Care Team Providers Care Junior Programmer Analyst Name Role Phone Bela Vasquez MD Primary Care Provider [phone] Urban Matta MD Unavailable [phone] Reason for Visit * Reason Onset Date Comments Results 09/29/2025 Encounter Details Date Type Department Care Team ([facility] st Contact Info) Description 09/29/2025 Results Follow-Up [facility] MEDICINE 230 [place] [address] Bela Vasquez MD 230 [place] [address] Lipid Panel with Reflex to Direct LDL, Albumin, Random Urine W/Creatinine, Hemoglobin A1c, Additional followed-up results: 4 Social History Tobacco Use Types Packs/Day Years [...] encounter Miscellaneous Notes * Telephone Encounter - Delphine Barnard RN - 09/29/2025 3:21 PM EST TC placed to the pt to inform about blood work results below. The pt was advised that there was slightly elevated K and worsening cholesterol. Renal function stable. The pt was asked about adherence to BP and cholesterol medication and the pt was confident that she is taking all medications as prescribed. The pt denied any constipation symptoms or receiving any new medications from outside providers. Pt agreeable to doing repeat labs and advised that this can be done on the first floor at the health center. Pt agreeable to plan of care and stated understanding. ----- Message from Bela Vasquez MD sent at 09/29/2025 3:20 PM EST ----- Mildly elevated potassium and worsened lipid profile. Her renal function is stable. Please call patient if she has been adherent to her BP and cholesterol medication. Please ask her if she has been constipated. Please ask if there was any medication change from her specialists. Please ask her to do a repeat lab. Thank you. ----- Message ----- From: Interface, Lab Results In Sent: 09/29/2025 2:02 PM EST To: Bela Vasquez MD documented in this encounter Plan of Treatment Upcoming Encounters Date Type Department Care Team (Late st Contact Info) Description 12/11/2025 1:00 PM EDT Clinical Support [facility] MED & PEDS 505 [place] [address] Melba Savage RN 505 [place] [address] documented as of this encounter Visit Diagnoses Not on filedocumented in this encounter Additional Health Concerns Assessment Noted Time PHQ-9 Depression Total Score: 6 07/15/20 25 1:30 PM EDT documented as of this encounter Care Teams Junior Programmer Analyst Relationship Specialty Start Date End Date Bela Vasquez MD 230 [place] [address] PCP - General Family Medicine 10/02/18 Urban Matta MD [address] [place] [address] Nephrology 08/27/24 documented as of this encounter
--- OUTSIDE RECORDS SUMMARY | 2025-09-30 14:52 | XMS_ITS | Encounter Summary ---
Author Organization [employer] Address 75 [facility] 7t [place] [address] Care Team Providers Care Shipwright Name Role Phone Bela Vasquez MD Primary Care Provider [phone] Urban Matta MD Unavailable [phone] Reason for Visit * Reason Onset Date Comments Med Refill 07/01/2025 Encounter Details Date Type Department Care Team (Late st Contact Info) Description 07/01/2025 Telephone [facility] MEDICINE 230 [place], [place] [phone] Bela Vasquez MD 230 [place], [place] [phone] Med Refill Social History Tobacco Use Types [...] the past 12 months, has t he [employer], gas, oil or water company threatened to [...] immediate release tablet To be sent to: [id number] [place] - [address] [place] [address] AT [facility] documented in this encounter Plan of Treatment Upcoming Encounters Date Type Department Care Team ([facility] Contact Info) Description 12/11/2025 1:00 PM EDT Clinical Support [facility] CHC MED & PEDS 505 [facility] [place] [address] Melba Savage, INÉS [address] [facility] [place] [address] documented as of this encounter Visit Diagnoses Not on filedocumented in this encounter Additional Health Concerns Assessment Noted Time PHQ-9 Depression Total Score: 3 06/24/20 24 1:09 PM EDT documented as of this encounter Care Teams Shipwright Relationship Specialty Start Date End Date Bela Vasquez MD 230 [place] [address] PCP - General Family Medicine 10/02/18 Urban Matta MD [address] [place] [address] Nephrology 08/27/24 documented as of this encounter
--- OUTSIDE RECORDS SUMMARY | 2025-09-30 14:52 | XMS_ITS | Encounter Summary ---
Author Organization [employer] Address 75 [facility] 7t [place] [address] Care Team Providers Care Kiln Car Unloader Name Role Phone Bela Vasquez MD Primary Care Provider [phone] Urban Matta MD Unavailable [phone] Reason for Visit * Reason Onset Date Comments Med Refill 09/11/2025 Encounter Details Date Type Department Care Team ([facility] st Contact Info) Description 09/11/[address] [facility] MEDICINE 230 [place], [place] [phone] Bela Vasquez MD 230 [place], [place] [phone] Med Refill Social History Tobacco Use Types [...] hr tablet To be sent to: - [email or web address][id number] - [place] [address] AT [facility] documented in this encounter Plan of Treatment Upcoming Encounters Date Type Department Care Team ([facility] Contact Info) Description 12/11/2025 1:00 PM EDT Clinical Support [facility] CHC MED & PEDS 505 [place] [place] [address] Melba Savage, RN [address] [place] [address] documented as of this encounter Visit Diagnoses Not on filedocumented in this encounter Additional Health Concerns Assessment Noted Time PHQ-9 Depression Total Score: 6 07/15/20 25 1:30 PM EDT documented as of this encounter Care Teams Kiln Car Unloader Relationship Specialty Start Date End Date Bela Vasquez MD 230 [place] [address] PCP - General Family Medicine 10/02/18 [place] [address] [place] [address] Nephrology 08/27/24 documented as of this encounter
--- OUTSIDE RECORDS SUMMARY | 2025-09-30 14:52 | XMS_ITS | Encounter Summary ---
Author Organization [facility] Address [address] [place] [address] Phone Care Team Providers Care Die Equipment Operator Name Role Phone Bela Vasquez MD Primary Care Provider [phone] Encounter Details Date Type Department Care Team (Late Contact Info) Description 01/25/2024 Documentation Only [facility] [address] [place] [address] Pamela Rand [address] [place] [phone] Social History Tobacco Use Types Packs/Day Years [...] Visit [facility] [address] [place] [address] Urban Matta MD [address] [place] [address] documented as of this encounter Visit Diagnoses Not on filedocumented in this encounter Care Teams Die Equipment Operator Relationship Specialty Start Date End Date Bela Vasquez MD [address] [place] [address] PCP - General Family Medicine 01/24/24 documented as of this encounter
--- OUTSIDE RECORDS SUMMARY | 2025-09-30 14:52 | XMS_ITS | Encounter Summary ---
Author Organization [facility] Address [address] [place] [address] Phone Care Team Providers Care Weigh And Charge Worker Name Role Phone Bela Vasquez MD Primary Care Provider [phone] Encounter Details Date Type Department Care Team (Late Contact Info) Description 09/26/2025 Documentation Only [facility] [address] [place] [address] Pamela Rand [address] [place] [phone] Social History Tobacco Use Types Packs/Day Years [...] [facility] [address] [place] [address] Urban Matta MD [address] [place] [address] documented as of this encounter Visit Diagnoses Not on filedocumented in this encounter Care Teams Weigh And Charge Worker Relationship Specialty Start Date End Date Bela Vasquez MD [address] [place] [address] PCP - General Family Medicine 01/24/24 documented as of this encounter
--- OUTSIDE RECORDS SUMMARY | 2025-09-30 14:52 | XMS_ITS | Encounter Summary ---
Author Organization [facility] Address [address] [place] [address] Phone Care Team Providers Care Associate Director Finance Name Role Phone Bela Vasquez MD Primary Care Provider [phone] Encounter Details Date Type Department Care Team (Late Contact Info) Description 03/24/2025 Documentation Only [facility] [address] [place] [address] Pamela Rnad [address] [place] [phone] Social History Tobacco Use Types Packs/Day Years [...] Visit [facility] [address] [place] [address] Urban Matta MD [address] [place] [address] documented as of this encounter Visit Diagnoses Not on filedocumented in this encounter Care Teams Associate Director Finance Relationship Specialty Start Date End Date Bela Vasquez MD [address] [place] [address] PCP - General Family Medicine 01/24/24 documented as of this encounter
--- OUTSIDE RECORDS SUMMARY | 2025-09-30 14:52 | XMS_ITS | Encounter Summary ---
Author Organization [facility] Address [address] [place] [address] Phone Care Team Providers Care Math And Science Instructor Name Role Phone Bela Vasquez MD Primary Care Provider [phone] Encounter Details Date Type Department Care Team (Late Contact Info) Description 09/26/2025 Documentation Only [facility] [address] [place] [address] Pamela Rand [address] [place] [phone] Social History Tobacco Use Types Packs/Day Years [...] Visit [facility] [address] [place] [address] Urban Matta MD [address] [place] [address] documented as of this encounter Visit Diagnoses Not on filedocumented in this encounter Care Teams Math And Science Instructor Relationship Specialty Start Date End Date Bela Vasquez MD [address] [place] [address] PCP - General Family Medicine 01/24/24 documented as of this encounter
--- OUTSIDE RECORDS SUMMARY | 2025-09-30 14:52 | XMS_ITS | Encounter Summary ---
Author Organization [employer] Address [address] [facility] [address] 7t [place] [address] Care Team Providers Care Optical Engineer Name Role Phone Bela Vasquez MD Primary Care Provider [phone] Urban Matta MD Unavailable [phone] Encounter Details Date Type Department Care Team ([facility] st Contact Info) Description 07/11/2024 Orders Only [facility] MEDICINE 230 [place], [place] [phone] Bela Vasquez MD 230 [place], [place] [phone] Lumbar post-laminectomy syndrome Social History Tobacco Use [...] [facility] MED & PEDS 505 [place] [address] Melba Savage, RN 505 [place] [address] documented as of this encounter Visit Diagnoses Diagnosis Lumbar post-laminectomy syndrome Postlaminectomy syndrome, lumbar region documented in this encounter Additional Health Concerns Assessment Noted Time PHQ-9 Depression Total Score: 3 06/24/20 24 1:09 PM EDT documented as of this encounter Care Teams Optical Engineer Relationship Specialty Start Date End Date Bela Vasquez MD 230 [place] [address] PCP - General Family Medicine 10/02/18 Urban Matta MD 0 [place] [address] Nephrology 08/27/24 documented as of this encounter"
--- OUTSIDE RECORDS SUMMARY | 2025-09-30 14:52 | XMS_ITS | Encounter Summary ---
Author Organization [employer] Address 75 [facility] 7t [place] [address] Care Team Providers Care Match Maker Name Role Phone Bela Vasqeuz MD Primary Care Provider [phone] Urban Matta MD Unavailable [phone] Reason for Visit * Reason Onset Date Comments Med Refill 09/23/2025 Encounter Details Date Type Department Care Team ([facility] st Contact Info) Description 09/23/2025 Telephone [facility] MEDICINE 230 [place], [place] [phone] Bela Vasquez MD 230 [place], [place] [phone] Med Refill Social History Tobacco Use Types [...] the past 12 months, has t he [employer], gas, oil or water company threatened to [...] release tablet To be sent to: - [facility] #[id number] - [place] [address] AT [facility] documented in this encounter Plan of Treatment Upcoming Encounters Date Type Department Care Team ([facility] Contact Info) Description 12/11/2025 1:00 PM EDT Clinical Support [facility] MED & PEDS 505 [place] [address] Melba Savage, RN [address] [facility] [place] [address] documented as of this encounter Visit Diagnoses Not on filedocumented in this encounter Additional Health Concerns Assessment Noted Time PHQ-9 Depression Total Score: 6 07/15/20 25 1:30 PM EDT documented as of this encounter Care Teams Match Maker Relationship Specialty Start Date End Date Bela Vasquez MD 230 [place] [address] PCP - General Family Medicine 10/02/18 [place] [address] [place] [address] Nephrology 08/27/24 documented as of this encounter
--- OUTSIDE RECORDS SUMMARY | 2025-09-30 14:52 | XMS_ITS | Encounter Summary ---
Author Organization [employer] Address 75 [facility] 7t [place] [address] Care Team Providers Care Deputy General Counsel Name Role Phone Bela Vasquez MD Primary Care Provider [phone] Urban Matta MD Unavailable [phone] Reason for Visit * Reason Onset Date Comments Medication Question 03/26/2024 Encounter Details Date Type Department Care Team ([facility] st Contact Info) Description 03/26/2024 Telephone [facility] MEDICINE 230 [place], [place] [phone] Bela Vasquez MD 230 [place], [place] [phone] Medication Question Social History Tobacco Use Types [...] the 5 mg. Please contact pt at [phone]. documented in this encounter Plan of Treatment Upcoming Encounters Date Type Department Care Team (Late st Contact Info) Description 12/11/2025 1:00 PM EDT Clinical Support [facility] MED & PEDS 505 [place] [address] Melba Savage, INÉS 505 [place] [address] documented as of this encounter Visit Diagnoses Not on filedocumented in this encounter Additional Health Concerns Assessment Noted Time PHQ-9 Depression Total Score: 2 02/02/20 23 11:12 AM EDT documented as of this encounter Care Teams Deputy General Counsel Relationship Specialty Start Date End Date Bela Vasquez MD 230 [place] [address] PCP - General Family Medicine 10/02/18 Urban Matta MD [address] [place] [address] Nephrology 08/27/24 documented as of this encounter
--- OUTSIDE RECORDS SUMMARY | 2025-09-30 14:52 | XMS_ITS | Encounter Summary ---
Author Organization [employer] Address [address] [facility] [address] 7t [place] [address] Care Team Providers Care Fiberglass Roller Name Role Phone Bela Vasquez MD Primary Care Provider [phone] Urban Matta MD Unavailable [phone] Reason for Visit * Reason Comments Med Refill Encounter Details Date Type Department Care Team ([facility] st Contact Info) Description 09/29/2025 Refill [facility] [address] [place] [address] [phone] Bela Vasquez MD 230 [place], [place] [phone] Impetigo, unspecified Social History Tobacco Use Types [...] the past 12 months, has t he [employer], gas, oil or water company threatened to [...] 1:00 PM EDT Clinical Support [facility] CH[facility] MED & PEDS 505 [place] [address] Melba Savage, INÉS 505 [place] [address] documented as of this encounter Visit Diagnoses Diagnosis Impetigo, unspecified documented in this encounter Additional Health Concerns Assessment Noted Time PHQ-9 Depression Total Score: 6 07/15/20 25 1:30 PM EDT documented as of this encounter Care Teams Fiberglass Roller Relationship Specialty Start Date End Date Bela Vasquez MD 230 [place] [address] PCP - General Family Medicine 10/02/18 Urban Matta MD [address] [place] [address] Nephrology 08/27/24 documented as of this encounter
--- OUTSIDE RECORDS SUMMARY | 2025-09-30 14:52 | XMS_ITS | Encounter Summary ---
Author Organization [employer] Address [address] [facility] [address] 7t [place] [address] Care Team Providers Care Senior Web Developer Name Role Phone Bela Vasquez MD Primary Care Provider [phone] Urban Matta MD Unavailable [phone] Encounter Details Date Type Department Care Team ([facility] st Contact Info) Description 08/06/2024 Orders Only [facility] MEDICINE 230 [place], [place] [phone] Bela Vasquez MD 230 [place], [place] [phone] Lumbar post-laminectomy syndrome Social History Tobacco Use [...] PM EDT Clinical Support [facility] MED & PEDS 505 [place] [address] Melba Savage, RN 505 [place] [address] documented as of this encounter Visit Diagnoses Diagnosis Lumbar post-laminectomy syndrome Postlaminectomy syndrome, lumbar region documented in this encounter Additional Health Concerns Assessment Noted Time PHQ-9 Depression Total Score: 3 06/24/20 24 1:09 PM EDT documented as of this encounter Care Teams Senior Web Developer Relationship Specialty Start Date End Date Bela Vasquez MD 230 [place] [address] PCP - General Family Medicine 10/02/18 Urban Matta MD 0 [place] [address] Nephrology 08/27/24 documented as of this encounter
--- OUTSIDE RECORDS SUMMARY | 2025-09-30 14:52 | XMS_ITS | Encounter Summary ---
Author Organization [employer] Address 75 [facility] 7t [place] [address] Care Team Providers Care Harness Worker Name Role Phone Bela Vasquez MD Primary Care Provider [phone] Urban Matta MD Unavailable [phone] Reason for Visit * Reason Onset Date Comments Med Refill 02/27/2025 Encounter Details Date Type Department Care Team ([facility] st Contact Info) Description 02/27/2025 Telephone [facility] MEDICINE 230 [place], [place] [phone] Bela Vasquez MD 230 [place], [place] [phone] Med Refill Social History Tobacco Use Types [...] the past 12 months, has t he [employer] gas, oil or water company threatened to [...] immediate release tablet To be sent to: [facility] #[id number] - [place] - [address] [place] [address] [facility] documented in this encounter Plan of Treatment Upcoming Encounters Date Type Department Care Team ([facility] Contact Info) Description 12/11/2025 1:00 PM EDT Clinical Support [facility] MED & PEDS 505 [facility] [place] [address] Melba Savage, INÉS 505 [facility] [place] [address] documented as of this encounter Visit Diagnoses Not on filedocumented in this encounter Additional Health Concerns Assessment Noted Time PHQ-9 Depression Total Score: 3 06/24/20 24 1:09 PM EDT documented as of this encounter Care Teams Harness Worker Relationship Specialty Start Date End Date Bela Vasquez MD 230 [place] [address] PCP - General Family Medicine 10/02/18 [place] [address] [place] [address] Nephrology 08/27/24 documented as of this encounter
--- OUTSIDE RECORDS SUMMARY | 2025-09-30 14:52 | XMS_ITS | Encounter Summary ---
Author Organization [employer] Address [address] [facility] [address] 7t [place] [address] Care Team Providers Care Senior Devops Engineer Name Role Phone Bela Vasquez MD Primary Care Provider [phone] Urban Matta MD Unavailable [phone] Reason for Visit * Reason Onset Date Comments Med Refill 02/04/2025 Encounter Details Date Type Department Care Team (Late st Contact Info) Description 02/04/2025 Telephone [facility] MEDICINE 230 [place], [place] [phone] Bela Vasquez MD 230 [place], [place] [phone] Med Refill Social History Tobacco Use Types [...] the past 12 months, has t he [employer], gas, oil or water [employer] threatened to shut off services in your [...] 12 hr tablet To be sent to: [facility] #[id number] - [place] - [address] [place] [address] [facility] documented in this encounter Plan of Treatment Upcoming Encounters Date Type Department Care Team ([facility] Contact Info) Description 12/11/2025 1:00 PM EDT Clinical Support [facility] MED & PEDS 505 [place] [address] Melba Savage, INÉS 505 [facility] [place] [address] documented as of this encounter Visit Diagnoses Not on filedocumented in this encounter Additional Health Concerns Assessment Noted Time PHQ-9 Depression Total Score: 3 06/24/20 24 1:09 PM EDT documented as of this encounter Care Teams Senior Devops Engineer Relationship Specialty Start Date End Date Bela Vasquez MD 230 [place] [address] PCP - General Family Medicine 10/02/18 [place] [address] [place] [address] Nephrology 08/27/24 documented as of this encounter
--- OUTSIDE RECORDS SUMMARY | 2025-09-30 14:52 | XMS_ITS | Encounter Summary ---
Author Organization [employer] Address [address] [facility] [address] 7t [place] [address] Care Team Providers Care Inspector Plating Name Role Phone Bela Vasquez MD Primary Care Provider [phone] Urban Matta MD Unavailable [phone] Reason for Visit * Reason Onset Date Comments Med Refill 01/08/2025 Encounter Details Date Type Department Care Team (Late st Contact Info) Description 01/08/2025 Telephone [facility] MEDICINE 230 [place], [place] [phone] Bela Vasquez MD 230 [place], [place] [phone] Med Refill Social History Tobacco Use Types [...] the past 12 months, has t he [employer], gas, oil or water company threatened to [...] 12 hr tablet To be sent to: [facility] #[id number] - [place] - [address] [place] [address] AT [facility] documented in this encounter Plan of Treatment Upcoming Encounters Date Type Department Care Team ([facility] Contact Info) Description 12/11/2025 1:00 PM EDT Clinical Support [facility] MED & PEDS 505 [place] [address] Melba Savage RN 505 [facility] [place] [address] documented as of this encounter Visit Diagnoses Not on filedocumented in this encounter Additional Health Concerns Assessment Noted Time PHQ-9 Depression Total Score: 3 06/24/20 24 1:09 PM EDT documented as of this encounter Care Teams Inspector Plating Relationship Specialty Start Date End Date Bela Vasquez MD 230 [place] [address] PCP - General Family Medicine 10/02/18 [place] [address] [place] [address] Nephrology 08/27/24 documented as of this encounter
--- OUTSIDE RECORDS SUMMARY | 2025-09-30 14:52 | XMS_ITS | Patient Health Record ---
Author Organization [employer] Address [address] [place] [address] Care Team Providers Care Dado Operator Name Role Phone Christina WEST, Bela Primary Care Provider Ralph Lau [phone] Allergies Allergen (clinical drug ingredient) Drug/Non Drug [...] MG Tablet 1 tablet Orally daily at [facility] Active Vitamin D 50 MCG (1999 [place]) Capsule 1 capsule Orally Once a day; Duration: 30 day(s) Active SEROquel 400 MG Tablet 1 tablet at [facility] Orally Once a day; Duration: 30 day(s) [...] Problem Screening for malignant neoplasm of colon (094525947) Encounter for screening for malignant neoplasm of colon (Z12.11) Active confirmed Problem Generalized abdominal pain (796847924) Abdominal pain, generalized (R10.84) Active confirmed Problem 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 [address] CORINNA Olson [phone] [id number] [employer] Self - patient is the insured 2 [facility] [address] [place] [address] [id number] [employer] Self - patient is the [...] of that. [facility] to [facility] and resolved without surgery; she also had recurrent small bowel obstructions in December of 2021 and in April of 2022, both of which resolved with nasogastric tube decompression and without surgery. Surgical History Surgery Date(Month/Year) KENDAL WALL Back surgery Lap. 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
--- OUTSIDE RECORDS SUMMARY | 2025-09-30 14:52 | XMS_ITS | Encounter Summary ---
Author Organization [employer] Address 75 [facility] 7t [place] [address] Care Team Providers Care Level Glass Vial Filler Name Role Phone Bela Vasquez MD Primary Care Provider [phone] Urban Matta MD Unavailable Reason for Visit * Reason Onset Date Comments Med Refill 08/13/2025 Encounter Details Date Type Department Care Team ([facility] st Contact Info) Description 08/13/2025 Telephone [facility] MEDICINE 230 [place], [place] [phone] Bela Vasquez MD 230 [place], [place] [phone] Med Refill Social History Tobacco Use Types [...] the past 12 months, has t he [employer], gas, oil or water company threatened to [...] 12 hr tablet To be sent to: [facility][id number] - [place] - [address] [place] [address] AT [facility] documented in this encounter Plan of Treatment Upcoming Encounters Date Type Department Care Team ([facility] Contact Info) Description 12/11/2025 1:00 PM EDT Clinical Support [facility] CHC MED & PEDS 505 [facility] [place] [address] Melba Savage, INÉS [address] [place] [address] documented as of this encounter Visit Diagnoses Not on filedocumented in this encounter Additional Health Concerns Assessment Noted Time PHQ-9 Depression Total Score: 6 07/15/20 25 1:30 PM EDT documented as of this encounter Care Teams Level Glass Vial Filler Relationship Specialty Start Date End Date Bela Vasquez MD 230 [place] [address] PCP - General Family Medicine 10/02/18 Urban Matta MD [address] [place] [address] Nephrology 08/27/24 documented as of this encounter
--- OUTSIDE RECORDS SUMMARY | 2025-09-30 14:52 | XMS_ITS | Encounter Summary ---
Author Organization [employer] Address [address] [facility] 7t [place] [address] Care Team Providers Care Unit Leader Name Role Phone Bela Vasquez MD Primary Care Provider [phone] Urban Matta MD Unavailable [phone] Reason for Visit * Reason Onset Date Comments Med Refill 07/07/2025 Encounter Details Date Type Department Care Team ([facility] st Contact Info) Description 07/07/2025 Telephone [facility] MEDICINE 230 [place], [place] [phone] Bela Vasquez MD 230 [place], [place] [phone] Med Refill Social History Tobacco Use Types [...] the past 12 months, has t he [employer], gas, oil or water [employer] threatened to shut off services in your [...] 12 hr tablet To be sent to: [facility][id number] [place], [place] - [facility] documented in this encounter Plan of Treatment Upcoming Encounters Date Type Department Care Team ([facility] Contact Info) Description 12/11/2025 1:00 PM EDT Clinical Support [facility] MED & PEDS [address] [place] [address] Melba Savage, RN [address] [place] [address] documented as of this encounter Visit Diagnoses Not on filedocumented in this encounter Additional Health Concerns Assessment Noted Time PHQ-9 Depression Total Score: 3 06/24/20 24 1:09 PM EDT documented as of this encounter Care Teams Unit Leader Relationship Specialty Start Date End Date Bela Vasquez MD [address] [place] [address] PCP - General Family Medicine 10/02/18 Urban Matta MD [address] [place] [address] Nephrology 08/27/24 documented as of this encounter
--- OUTSIDE RECORDS SUMMARY | 2025-09-30 14:52 | XMS_ITS | Encounter Summary ---
Author Organization [facility] Address [address] [place] [address] Phone Care Team Providers Care Frozen Food Department Manager Name Role Phone Bela Vasquez MD Primary Care Provider [phone] Encounter Details Date Type Department Care Team (Late Contact Info) Description 01/25/2024 Documentation Only [facility] [address] [place] [address] Pamela Rand [address] [place] [phone] Social History Tobacco Use Types Packs/Day Years [...] Visit [facility] Of [address] [place] [address] Urban Matta MD [address] [place] [address] documented as of this encounter Visit Diagnoses Not on filedocumented in this encounter Care Teams Frozen Food Department Manager Relationship Specialty Start Date End Date Bela Vasquez MD [address] [place] [address] PCP - General Family Medicine 01/24/24 documented as of this encounter
--- OUTSIDE RECORDS SUMMARY | 2025-09-30 14:52 | XMS_ITS | Encounter Summary ---
Author Organization [employer] Address [address] [facility] [address] 7t [place] [address] Care Team Providers Care Manager Community Relations Name Role Phone Bela Vasquez MD Primary Care Provider [phone] Urban Matta MD Unavailable [phone] Encounter Details Date Type Department Care Team ([facility] st Contact Info) Description 08/07/2024 Orders Only [facility] MEDICINE [address] [place], [place] [phone] Bela Vasquez MD 230 [place], [place] [phone] Lumbar radiculopathy (Primary Dx); Central abdominal pain [...] Description 12/11/2025 1:00 PM EDT Clinical Support [facility] MED & PEDS 505 [place] [address] Melba Savage, RN 505 [place] [address] documented as of this encounter Visit Diagnoses Diagnosis Lumbar radiculopathy- Primary Thoracic or lumbosacral neuritis or radiculitis, unspecified Central abdominal pain documented in this encounter Additional Health Concerns Assessment Noted Time PHQ-9 Depression Total Score: 3 06/24/20 24 1:09 PM EDT documented as of this encounter Care Teams Manager Community Relations Relationship Specialty Start Date End Date Bela Vasquez MD 230 [place] [address] PCP - General Family Medicine 10/02/18 Urban Matta MD [address] [place] [address] Nephrology 08/27/24 documented as of this encounter
--- OUTSIDE RECORDS SUMMARY | 2025-09-30 14:52 | XMS_ITS | Encounter Summary ---
Author Organization [facility] Address [address] [place] [address] Phone Care Team Providers Care Perfusionist Name Role Phone Bela Vasquez MD Primary Care Provider [phone] Encounter Details Date Type Department Care Team (Late Contact Info) Description 01/25/2024 Documentation Only [facility] Of [address] [place] [address] Pamela Rand [address] [place] [phone] Social History Tobacco Use Types Packs/Day Years [...] Visit [facility] [address] [place] [address] Urban Matta MD [address] [place] [address] documented as of this encounter Visit Diagnoses Not on filedocumented in this encounter Care Teams Perfusionist Relationship Specialty Start Date End Date Bela Vasquez MD [address] [place] [address] PCP - General Family Medicine 01/24/24 documented as of this encounter
--- OUTSIDE RECORDS SUMMARY | 2025-09-30 14:52 | XMS_ITS | Encounter Summary ---
Author Organization [employer] Address [address] [facility] [address] 7t [place] [address] Care Team Providers Care Promotions Representative Name Role Phone Bela Vasquez MD Primary Care Provider [phone] Urban Matta MD Unavailable [phone] Reason for Visit * Reason Onset Date Comments Med Refill 03/10/2025 Encounter Details Date Type Department Care Team (Late st Contact Info) Description 03/10/2025 Telephone [facility] MEDICINE 230 [place], [place] [phone] Bela Vasquez MD 230 [place], [place] [phone] Med Refill Social History Tobacco Use Types [...] the past 12 months, has t he [employer], gas, oil or water company threatened to [...] 12 hr tablet To be sent to: [facility][id number] - [place], [place] - [address] [place] [address] [facility] documented in this encounter Plan of Treatment Upcoming Encounters Date Type Department Care Team ([facility] Contact Info) Description 12/11/2025 1:00 PM EDT Clinical Support [facility] MED & PEDS 505 [facility] [place] [address] Melba Savage, INÉS [address] [place] [address] documented as of this encounter Visit Diagnoses Not on filedocumented in this encounter Additional Health Concerns Assessment Noted Time PHQ-9 Depression Total Score: 3 06/24/20 24 1:09 PM EDT documented as of this encounter Care Teams Promotions Representative Relationship Specialty Start Date End Date Sakurai, Bela, MD 230 [place] [address] PCP - General Family Medicine 10/02/18 [place] [address] [place] [address] Nephrology 08/27/24 documented as of this encounter
--- OUTSIDE RECORDS SUMMARY | 2025-09-30 14:53 | XMS_ITS | Encounter Summary ---
Author Organization [facility] Address [address] [place] [address] Phone Care Team Providers Care Head Of Precision Targeting Name Role Phone Bela Vasquez MD Primary Care Provider [phone] Encounter Details Date Type Department Care Team (Late st Contact Info) Description 08/03/2022 Documentation Only [facility] Of [address] [place] [address] Jo Ann Ariza Social History [...] Care Team (Late st Contact Info) Description 11/14/2025 2:30 PM EST Office Visit [facility] [address] [place] [address] Urban Matta MD [address] [place] [address] [place] [address] documented as of this encounter Visit Diagnoses Not on filedocumented in this encounter Care Teams Head Of Precision Targeting Relationship Specialty Start Date End Date Bela Vasquez MD [address] [place] [address] PCP - General Family Medicine 01/24/24 documented as of this encounter
--- OUTSIDE RECORDS SUMMARY | 2025-09-30 14:53 | XMS_ITS | Encounter Summary ---
Author Organization [facility] Address [address] [place] [address] Phone Care Team Providers Care Former Hand Name Role Phone Bela Vasquez MD Primary Care Provider [phone] Encounter Details Date Type Department Care Team (Late st Contact Info) Description 08/03/2022 Documentation Only [facility] Of [address] [place] [address] Jo Ann Ariza Social History [...] Visit [facility] Of [address] [place] [address] Urban Matta MD [address] [place] [address] [place] [address] documented as of this encounter Visit Diagnoses Not on filedocumented in this encounter Care Teams Former Hand Relationship Specialty Start Date End Date Bela Vasquez MD [address] [place] [address] PCP - General Family Medicine 01/24/24 documented as of this encounter
--- OUTSIDE RECORDS SUMMARY | 2025-09-30 14:53 | XMS_ITS | Encounter Summary ---
Author Organization [facility] Address [address] [place] [address] Phone Care Team Providers Care Cold Mill Supervisor Name Role Phone Bela Vasquez MD Primary Care Provider [phone] Encounter Details Date Type Department Care Team (Late Contact Info) Description 01/25/2024 Documentation Only [facility] Of [address] [place] [address] Pamela Rand [address] [place] [phone] Social History Tobacco Use Types Packs/Day Years [...] [facility] [address] [place] [address] Urban Matta MD [address] [place] [address] documented as of this encounter Visit Diagnoses Not on filedocumented in this encounter Care Teams Cold Mill Supervisor Relationship Specialty Start Date End Date Bela Vasquez MD [address] [place] [address] PCP - General Family Medicine 01/24/24 documented as of this encounter
--- OUTSIDE RECORDS SUMMARY | 2025-09-30 14:53 | XMS_ITS | Encounter Summary ---
Author Organization [employer] Address [address] [facility] 7t [place] [address] Care Team Providers Care Linderman Machine Operator Name Role Phone Bela Vasquez MD Primary Care Provider [phone] Urban Matta MD Unavailable [phone] Reason for Visit * Reason Onset Date Comments Med Refill 04/29/2025 Encounter Details Date Type Department Care Team ([facility] st Contact Info) Description 04/29/2025 Telephone [facility] MEDICINE 230 [place], [place] [phone] Bela Vasquez MD 230 [place], [place] [phone] Med Refill Social History Tobacco Use Types [...] the past 12 months, has t he [employer], gas, oil or water company threatened to [...] immediate release tablet To be sent to: [facility] #[id number] [place] - [address] [place] [address] AT [facility] documented in this encounter Plan of Treatment Upcoming Encounters Date Type Department Care Team ([facility] Contact Info) Description 12/11/2025 1:00 PM EDT Clinical Support [facility] MED & PEDS 505 [facility] [address] Melba Savage, INÉS [address] [facility] [place] [address] documented as of this encounter Visit Diagnoses Not on filedocumented in this encounter Additional Health Concerns Assessment Noted Time PHQ-9 Depression Total Score: 3 06/24/20 24 1:09 PM EDT documented as of this encounter Care Teams Linderman Machine Operator Relationship Specialty Start Date End Date Bela Vasquez MD [address] [place] [address] PCP - General Family Medicine 10/02/18 Urban Matta MD [address] [place] [address] Nephrology 08/27/24 documented as of this encounter
--- OUTSIDE RECORDS SUMMARY | 2025-09-30 14:53 | XMS_ITS | Encounter Summary ---
Author Organization [facility] Address [address] [place] [address] Phone Care Team Providers Care Family Services Specialist Name Role Phone Bela Vasquez MD Primary Care Provider [phone] Encounter Details Date Type Department Care Team (Late st Contact Info) Description 08/03/2022 Documentation Only [facility] Of [address] [place] [address] Jo Ann Ariza Social History [...] Visit [facility] Of [address] [place] [address] Urban Matta MD [address] [place] [address] [place] [address] documented as of this encounter Visit Diagnoses Not on filedocumented in this encounter Care Teams Family Services Specialist Relationship Specialty Start Date End Date Bela Vasquez MD [address] [place] [address] PCP - General Family Medicine 01/24/24 documented as of this encounter
--- OUTSIDE RECORDS SUMMARY | 2025-09-30 14:53 | XMS_ITS | Encounter Summary ---
Author Organization [facility] Address [address] [place] [address] Phone Care Team Providers Care Well Service Floorperson Name Role Phone Bela Vasquez MD Primary Care Provider [phone] Encounter Details Date Type Department Care Team (Late st Contact Info) Description 08/03/2022 Documentation Only [facility] Of [address] [place] [address] Jo Ann Ariza Social History [...] Visit [facility] Of [address] [place] [address] Urban Matta MD [address] [place] [address] [place] [address] documented as of this encounter Visit Diagnoses Not on filedocumented in this encounter Care Teams Well Service Floorperson Relationship Specialty Start Date End Date Bela Vasquez MD [address] [place] [address] PCP - General Family Medicine 01/24/24 documented as of this encounter
--- OUTSIDE RECORDS SUMMARY | 2025-09-30 14:53 | XMS_ITS | Clinical Summary ---
Author Organization [facility], Address [address] [place] [address] [place] [address] Phone Care Team Providers Care Sheriff Deputy Name Role Phone Bela Vasquez MD Primary Care Provider [phone] Allergies Active Allergy Reactions Criticality Noted Date [...] Only [facility] Of [address] [place] [phone] Pamela Rand 09/26/2025 Documentation Only [facility] Of [address] [place] [phone] Pamela Rand 09/26/2025 Documentation Only [facility] Of [address] [place] [phone] Pamela Rand from Last 3 Months Immunizations [...] Visit [facility], [address] [place] [place] [phone] Urban Matta MD [address] [facility] [place] [phone] Health Maintenance Due Date Last Done Comments [...] 07/15/2025, , 08/15/2023, Additional history exists Insurance [place] Care Teams Sheriff Deputy Relationship Specialty Start Date End Date Bela Vasquez MD [address] [place] [address] PCP - General Family Medicine 01/24/24
--- OUTSIDE RECORDS SUMMARY | 2025-09-30 14:53 | XMS_ITS | Encounter Summary ---
Author Organization [employer] Address [address] [facility] [address] 7t [place] [address] Care Team Providers Care Chute Loader Name Role Phone Bela Vasquez MD Primary Care Provider [phone] Urban Matta MD Unavailable [phone] Reason for Visit * Reason Onset Date Comments Medication Question 05/19/2025 Encounter Details Date Type Department Care Team ([facility] st Contact Info) Description 05/19/2025 Telephone [facility] MEDICINE 230 [place], [place] [phone] Bela Vasquez MD [address] [place], [place] [phone] Medication Question Social History Tobacco Use Types [...] the past 12 months, has t he [employer], gas, oil or water [employer] threatened to shut off services in your [...] requesting a call back. Contact pt at [phone] documented in this encounter Plan of Treatment Upcoming Encounters Date Type Department Care Team (Late st Contact Info) Description 12/11/2025 1:00 PM EDT Clinical Support [facility] MED & PEDS [address] [place] [address] Melba Savage, RN 505 [place] [address] documented as of this encounter Visit Diagnoses Not on filedocumented in this encounter Additional Health Concerns Assessment Noted Time PHQ-9 Depression Total Score: 3 06/24/20 24 1:09 PM EDT documented as of this encounter Care Teams Chute Loader Relationship Specialty Start Date End Date Bela Vasquez MD [address] [place] [address] PCP - General Family Medicine 10/02/18 Urban Matta MD [address] [place] [address] Nephrology 08/27/24 documented as of this encounter
[2025-09-30 15:12] LABS: Anion Gap 12 (12-20); Blood Urea Nitrogen 14 mg/dL (9-16); Calcium 10.3 mg/dL (8.4-10.2); Carbon Dioxide 29 mmol/L (22-29); Chloride 108 mmol/L (96-108); Estimated Glomerular Filt Rate 51; Potassium 4.5 mmol/L (3.3-5.1); Sodium 144 mmol/L (135-145)
== END 2025-09-30 10:58 | disposition home or self-care (01) ==
LOC: HO.HHCL 10:57
PROVIDERS: PCP Family Medicine; Visit Provider Family Medicine
DX: E87.5 Hyperkalemia (principal)
CPT/HCPCS: 36415; 80048